=== PATIENT | male | born 1950 | race Two or more races ===

== ENCOUNTER 2020-08-28 14:04 | Outpatient (REF) | payer MEDICARE, SELFPAY ==
[2020-08-28 15:16] LABS: MANUAL DIFF FLAG NO
--- NOTE | 2020-08-28 15:18 | XR_ITS ---
EXAMINATION: LEFT SHOULDER, RIGHT KNEE AND LEFT HAND X-RAY CLINICAL INFORMATION: Other specified abnormal immunological findings in serum COMPARISON: Left shoulder x-ray 08/11/2019, right knee x-ray 03/11/2014 and left hand x-ray August 2019 TECHNIQUE: 4 views of the left shoulder, 3 views of the left knee and 3 views of the left hand FINDINGS: Left shoulder: Bone alignment is normal. No fracture or dislocation is seen. The glenohumeral joint is normal. There is arthritis at the acromioclavicular joint. There are degenerative degenerative changes of the greater tuberosity. Soft tissues are normal. Right knee: Bone alignment is normal. No fracture or dislocation is seen. There are small osteophytes at the patellofemoral joint. There is no joint effusion. Left hand: Bone alignment is normal. No fracture or dislocation is seen. There are small osteophytes joint space narrowing at the IP joints and first CORRECTION joint. There is soft tissue arterial calcification. XR/XR hand LT min 3V IMPRESSION: Left shoulder: Arthritis at the acromioclavicular joint. Left knee: Arthritis at the patellofemoral joint. Left hand: Arthritis at the IP joints and first CORRECTION joint.
--- NOTE | 2020-08-28 15:18 | XR_ITS ---
EXAMINATION: LEFT SHOULDER, RIGHT KNEE AND LEFT HAND X-RAY CLINICAL INFORMATION: Other specified abnormal immunological findings in serum COMPARISON: Left shoulder x-ray 08/11/2019, right knee x-ray 03/11/2014 and left hand x-ray August 2019 TECHNIQUE: 4 views of the left shoulder, 3 views of the left knee and 3 views of the left hand FINDINGS: Left shoulder: Bone alignment is normal. No fracture or dislocation is seen. The glenohumeral joint is normal. There is arthritis at the acromioclavicular joint. There are degenerative degenerative changes of the greater tuberosity. Soft tissues are normal. Right knee: Bone alignment is normal. No fracture or dislocation is seen. There are small osteophytes at the patellofemoral joint. There is no joint effusion. Left hand: Bone alignment is normal. No fracture or dislocation is seen. There are small osteophytes joint space narrowing at the IP joints and first LONGTERM joint. There is soft tissue arterial calcification. XR/XR shoulder LT min 2V IMPRESSION: Left shoulder: Arthritis at the acromioclavicular joint. Left knee: Arthritis at the patellofemoral joint. Left hand: Arthritis at the IP joints and first LONGTERM joint.
--- NOTE | 2020-08-28 15:18 | XR_ITS ---
EXAMINATION: LEFT SHOULDER, RIGHT KNEE AND LEFT HAND X-RAY CLINICAL INFORMATION: Other specified abnormal immunological findings in serum COMPARISON: Left shoulder x-ray 08/11/2019, right knee x-ray 03/11/2014 and left hand x-ray August 2019 TECHNIQUE: 4 views of the left shoulder, 3 views of the left knee and 3 views of the left hand FINDINGS: Left shoulder: Bone alignment is normal. No fracture or dislocation is seen. The glenohumeral joint is normal. There is arthritis at the acromioclavicular joint. There are degenerative degenerative changes of the greater tuberosity. Soft tissues are normal. Right knee: Bone alignment is normal. No fracture or dislocation is seen. There are small osteophytes at the patellofemoral joint. There is no joint effusion. Left hand: Bone alignment is normal. No fracture or dislocation is seen. There are small osteophytes joint space narrowing at the IP joints and first SNF joint. There is soft tissue arterial calcification. XR/XR knee RT 3V IMPRESSION: Left shoulder: Arthritis at the acromioclavicular joint. Left knee: Arthritis at the patellofemoral joint. Left hand: Arthritis at the IP joints and first SNF joint.
--- NOTE | 2020-08-28 15:19 | XR_ITS ---
EXAMINATION: XR CHEST CLINICAL INFORMATION: Essential primary hypertension COMPARISON: Chest radiographs 09/27/2014, 09/20/2014; CT abdomen 12/01/2019 TECHNIQUE: 2 views of the chest were obtained. FINDINGS: The heart is normal in size. The vascularity is normal. The lungs are clear. There is no airspace consolidation or effusion. The hilar and mediastinal contours and bony structures are unremarkable. Again, there are surgical clips epigastrium just left of midline. XR/XR chest 2V IMPRESSION: Unremarkable examination.
[2020-08-28 15:20] LABS: Basophils Percent Auto 0.2 % (0-2); Eosinophils Absolute Auto 0.3 X10*3/uL (0.0-0.4); Eosinophils Percent Auto 5.4 % (0-4); Hematocrit 40.1 % (42-52); Hemoglobin 13.2 g/dl (14.0-18.0); Imm Gran Abs Auto 0.01 X10*3/uL (0.00-0.03); Imm Gran Pct Auto 0.2 % (0.0-0.4); Lymphocytes Absolute Auto 1.7 X10*3/uL (1.2-4.9); Lymphocytes Percent Auto 29.5 % (20-40); Mean Corpuscular HGB Conc 32.9 g/dl (31.0-36.0); Mean Corpuscular Volume 88.1 fL (80-98); Mean Platelet Volume 9.4 fL (9.4-12.4); Monocytes Absolute Auto 0.4 X10*3/uL (0.1-1.2); Monocytes Percent Auto 6.1 % (2-11); Neutrophils Absolute Auto 3.5 X10*3/uL (2.0-8.3); Neutrophils Percent Auto 58.6 % (45-73); Platelet Count 268 X10*3/uL (160-400); Red Blood Count 4.55 X10*6/uL (4.60-5.80); Red Cell Distribution Width 13.1 % (11.0-16.0); White Blood Count 5.9 X10*3/uL (4.8-10.8)
[2020-08-28 15:47] LABS: Alanine Aminotransferase 18 U/L (0-40); Albumin Level 4.1 g/dL (3.5-5.0); Alkaline Phosphatase 127 U/L (39-117); Anion Gap 13 (12-20); Aspartate Amino Transferase 18 U/L (5-37); Bilirubin Total 0.5 mg/dL (0.0-1.0); Blood Urea Nitrogen 18 mg/dL (9-16); C Reactive Protein 0.23 mg/dL (< or = 0.50); Carbon Dioxide 28 mmol/L (22-29); Chloride 101 mmol/L (96-108); Estimated Glomerular Filt Rate 59; Glucose Random 243 mg/dL (60-115); Potassium 4.8 mmol/l (3.3-5.1); Rheumatoid Factor < 15.0 IU/mL (<15.0); Sodium 137 mmol/L (135-145); Total Protein 7.1 g/dL (6.5-8.0)
[2020-08-28 15:57] LABS: Glucose Urine UA >=1000 MG/DL (NEG); Leukocyte Esterase Urine NEG (NEG); Nitrite Urine NEG (NEG); PH 5.5 (5.0-8.0); Urine Blood NEG (NEG); Urine Ketones NEG (NEG); Urine Protein NEG (NEG-TRACE)
[2020-08-28 15:58] LABS: Appearance Urine CLEAR; Color Urine YELLOW
[2020-08-28 16:03] LABS: Bacteria Urine TRACE /LPF; RBC Urine 0 /HPF (0); WBC Urine 0 /HPF (0-4)
[2020-08-28 16:21] LABS: Erythrocyte Sedimentation Rate 7 MM/HR (0-15)
[2020-08-29 10:16] LABS: Thyroglobulin Antibodies <1 IU/mL (< or = 1); Thyroid Peroxidase Antibodies <1 IU/mL (<9)
[2020-08-29 13:28] LABS: Anti DNA DS Antibody 2 IU/mL; Antibody to SS-A Antigen <1.0 NEG AI (<1.0 NEG); Antibody to SS-B Antigen <1.0 NEG AI (<1.0 NEG); SM/Ribonucleoprotein Ab <1.0 NEG AI (<1.0 NEG); Scleroderma 70 Antibody <1.0 NEG AI (<1.0 NEG); Smith Protein <1.0 NEG AI (<1.0 NEG)
[2020-08-29 22:53] LABS: Cyclic Citrullinated Peptide <16 UNITS
[2020-08-30 19:17] LABS: Complement C3 122 mg/dL (82-185)
== END 2020-08-28 14:05 | disposition home or self-care (01) ==
LOC: HO.LAB 14:04
PROVIDERS: PCP Internal Medicine; Referring Provider Internal Medicine; Visit Provider Student in an Organized Health Care Education/Training Program
DX: M70.51 Other bursitis of knee, right knee (principal); M54.9 Dorsalgia, unspecified; I10 Essential (primary) hypertension; R76.8 Other specified abnormal immunological findings in serum; Z79.899 Other long term (current) drug therapy; Z79.84 Long term (current) use of oral hypoglycemic drugs
CPT/HCPCS: 36415; 71046; 73030; 73130; 73562; 80053; 81001; 85025; 85652; 86140; 86160; 86200; 86225; 86235; 86376; 86431; 86800; 99202

== ENCOUNTER 2020-09-15 17:29 | Emergency (ER) | payer MEDICARE, SELFPAY ==
--- NOTE | ~2020-09-15 | XR_ITS ---
EXAMINATION: XR CHEST CLINICAL INFORMATION: Cough? COVID COMPARISON: 08/28/2020 TECHNIQUE: Frontal view of the chest was obtained. FINDINGS: Lungs are clear. No pleural effusion or pneumothorax. Normal heart size. Surgical clips in the epigastrium. Degenerative changes of the shoulders. XR/XR chest 1V IMPRESSION: No acute pulmonary disease. No significant change from prior study.
[2020-09-15 18:30] VITALS: BP 136/81; PULSE 80; RESP 18; TEMP 36.6; O2SAT 99; BMI 30.9
--- NOTE | 2020-09-15 19:21 | ED.SOB ---
HPI - SOB/Dyspnea General Chief Complaint: Dyspnea Stated Complaint: headache Time Seen by Provider: 09/15/20 18:52 Source: patient Mode of arrival: ambulatory Limitations: no limitations History of Present Illness HPI Narrative: Patient history of COPD/asthma been feeling increased shortness of breath for last few days getting worse with body aches also has nausea and vomiting 3 days ago patient denies any COVID exposure on arrival patient was saturating 99% at room air MD elicited complaint: shortness of breath and cough (Mild dry) Pertinent past history: COPD and asthma Onset (ago): day(s) (3-4) Timing: constant Severity: mild Exacerbating factors: exertion Related Data Home Medications Medication Instructions Recorded Confirmed albuterol sulfate 90 mcg/actuation 2 puff INHALATION Q4-6H PRN 07/20/20 07/20/20 aerosol inhaler cyanocobalamin (vitamin B-12) 1,000 mcg PO DAILY 07/20/20 07/20/20 1,000 mcg capsule dicyclomine 10 mg capsule 10 mg PO QID 07/20/20 07/20/20 dulaglutide 1.5 mg/0.5 mL 1.5 mg SUBCUT QWEEK 07/20/20 07/20/20 subcutaneous pen injector fluticasone furoate 200 1 inh INHALATION DAILY 07/20/20 07/20/20 mcg-vilanterol 25 mcg/dose inhalation powder insulin glargine 100 unit/mL (3 16 unit SUBCUT QPM ml 07/20/20 07/20/20 mL) subcutaneous pen ipratropium 0.5 mg-albuterol 3 mg 3 ml INHALATION Q4-6H PRN 07/20/20 07/20/20 (2.5 mg base)/3 mL nebulization soln meclizine 25 mg tablet 25 mg PO TID 07/20/20 07/20/20 miconazole nitrate 2 % topical 1 appl TOPICAL DAILY 07/20/20 07/20/20 powder polyethylene glycol 3350 17 17 g PO DAILY 07/20/20 07/20/20 gram/dose oral powder sildenafil 50 mg tablet 50 mg PO DAILY PRN 07/20/20 07/20/20 tizanidine 4 mg tablet 4 mg PO TID PRN 07/20/20 07/20/20 triamcinolone acetonide 0.5 % 1 appl TOPICAL BID 07/20/20 07/20/20 topical cream lancets 28 gauge #100 ea 08/30/20 Previous Rx's Medication Instructions Recorded meloxicam 15 mg tablet 15 mg PO DAILY #90 tab 06/15/20 aspirin 81 mg tablet,delayed 81 mg PO DAILY #90 tab 07/20/20 release blood sugar diagnostic #3 box 07/20/20 cholecalciferol (vitamin D3) 50 50 mcg PO DAILY #90 cap 07/20/20 mcg (2,000 unit) capsule gabapentin 100 mg capsule 100 mg PO DAILY #90 cap 07/20/20 lisinopril 2.5 mg tablet 2.5 mg PO DAILY #90 tab 07/20/20 metformin 1,000 mg tablet 1,000 mg PO BID #180 tab 07/20/20 sertraline 50 mg tablet 50 mg PO DAILY #90 tab 07/20/20 diclofenac sodium 1 % topical gel 2 g TOPICAL BID #100 g 08/28/20 doxycycline hyclate 100 mg PO BID #20 cap 09/15/20 prednisone 40 mg PO DAILY #10 tab 09/15/20 Allergies Allergy/AdvReac Type Severity Reaction Status Date / Time aspirin [ASPIRIN] Allergy Intermediate RASH WITH Verified 08/28/20 14:09 HIGH DOSES Penicillins Allergy Mild HIVES Verified 08/28/20 14:09 phenytoin [From Dilantin] Allergy Mild BURNING Verified 08/28/20 14:09 SENSATION IN BODY acetaminophen [From PERCOCET] Allergy Unknown UNKNOWN Verified 08/28/20 14:09 butalbital [BUTALBITAL] Allergy Unknown HIVES Verified 08/28/20 14:09 codeine [CODEINE] Allergy Unknown NAUSEA & Verified 08/28/20 14:09 VOMITING hydromorphone [From DILAUDID] Allergy Unknown UNKNOWN Verified 08/28/20 14:09 oxycodone [From PERCOCET] Allergy Unknown UNKNOWN Verified 08/28/20 14:09 thimerosal [THIMEROSAL] Allergy Unknown UNKNOWN Verified 08/28/20 14:09 [place] Allergy Unknown Unknown Uncoded 05/16/20 08:01 MOTRIN Allergy Unknown hives Uncoded 02/14/20 00:00 PERCOCET Allergy Unknown hives Uncoded 02/14/20 00:00 Review of Systems Review of Systems: Constitutional : No Weight loss, No Fever, No Chills ENT/Mouth : No sore throat, No Rhinorrhea Eyes: No Eye Pain, No Swelling Cardiovascular : No Chest Pain, no palpitations Respiratory : +Cough, No Sputum, + shortness of breath Gastrointestinal : no Nausea, No Vomiting, No Diarrhea, No abdominal Pain, no black stools Genitourinary : No Dysuria, No Urinary Frequency Musculoskeletal : No joint pain, No Myalgias, No Joint Swelling Skin : No Skin Lesions, No rash Neuro : No Weakness, No Numbness, No Dizziness, No Headache Psych : No Anxiety/Panic, No Depression Heme/Lymph: No Bruising, No Lymphadenopathy Endocrine : No Polyuria, No Polydipsia All other systems reviewed and are negative PMFSH Past Medical History Medical History BERNARD positive BERNARD positive Anxiety and depression BPH (benign prostatic hyperplasia) Brain tumor Calcaneal spur, right COPD (chronic obstructive pulmonary disease) Diabetes mellitus with hyperglycemia Erectile dysfunction Essential hypertension GERD (gastroesophageal reflux disease) Grand mal seizure disorder History of carpal tunnel syndrome Hypercholesterolemia Inguinal hernia, bilateral Insomnia Migraine Obesity (BMI 30-39.9) Obstructive sleep apnea Osteoarthritis Pulmonary nodule RLS (restless legs syndrome) Tennis elbow Vitamin B12 deficiency Vitamin D deficiency Surgical History History of diverticulosis History of elbow surgery History of partial gastrectomy History of right inguinal hernia repair Hx of brain surgery Hx of carpal tunnel repair Hx of colonoscopy Hx of foot surgery Hx of prostate biopsy Family History Family History Father Diabetes Throat cancer Heart disease Mother Ovarian cancer Social History Social History Alcohol intake: never Smoking Status: Never smoker Advance Directives: No Advance Directives Information Provided: No Physical Exam Vital Signs: Vital Signs: Last Vital Signs Temp 97.9 F 09/15/20 20:00 Pulse 72 09/15/20 20:00 Resp 16 09/15/20 20:00 BP 137/75 09/15/20 20:00 Pulse Ox 99 09/15/20 20:00 Body Mass Index 30.9 Appearance: Alert. Oriented X3. No acute distress. Eyes: Pupils equal, round and reactive to light. ENT: Pharynx normal. Neck: Normal inspection. Neck supple. CVS: Normal heart rate and rhythm. Pulses normal. Respiratory: No respiratory distress. Breath sounds normal. Abdomen: Soft and nontender. Bowel sounds are present, no mass palpable, no CVA tenderness Skin: Skin warm and dry. Normal skin color. Normal skin turgor. Extremities: No lower extremity edema. Neuro: Oriented X 3. No motor deficit. No sensory deficit. MDM - SOB/Dyspnea MDM Narrative Medical decision making narrative: Patient's COPD/asthma came with cough is slight shortness of breath saturating 99% at room air COVID negative chest x-ray negative for any infiltrate discharge patient home on prednisone doxycycline and inhaler for acute bronchitis Differential Diagnosis Differential diagnosis: Likely acute exacerbation of chronic obstructive airways disease and pneumonia Medical Records Attestation: I reviewed the patient's medical records. Lab Data Attestation: I reviewed the patient's lab results. Labs: Lab Results 09/15/20 Range/Units 20:03 COVID-19 ([facility]) Negative (Negative) COVID-19 Clin Com See Note Discharge Plan Discharge Clinical Impression: Acute bronchitis Qualifiers: Bronchitis organism: unspecified organism Qualified Code(s): J20.9 - Acute bronchitis, unspecified Patient Disposition: Home, Self-Care Instructions: Acute Bronchitis (ED) Additional Instructions: Continue inhaler. Take antibiotic and prednisone as advised. Follow with PCP if not better Prescriptions: New doxycycline hyclate 100 mg capsule 100 mg PO BID Qty: 20 RF: 0 prednisone 20 mg tablet 40 mg PO DAILY Qty: 10 RF: 0 No Action meloxicam 15 mg tablet 15 mg PO DAILY Qty: 90 RF: 1 (DME) lancets [FreeStyle Lancets] 28 gauge misc 0 .ROUTE .MEDSUPPLY Qty: 100 RF: 0 Zeasorb AF 2 % powder 1 appl topical DAILY RF: 0 sildenafil 50 mg tablet 50 mg PO DAILY PRNRF: 0 triamcinolone acetonide 0.5 % cream 1 appl topical BID RF: 0 polyethylene glycol 3350 17 gram/dose powder 17 g PO DAILY RF: 0 cyanocobalamin (vitamin B-12) 1,000 mcg capsule 1,000 mcg PO DAILY RF: 0 meclizine 25 mg tablet 25 mg PO TID RF: 0 tizanidine 4 mg tablet 4 mg PO TID PRNRF: 0 Breo Ellipta 200-25 mcg/dose blister with device 1 inh inhalation DAILY RF: 0 ipratropium-albuterol 0.5 mg-3 mg(2.5 mg base)/3 mL solution for nebulization 3 ml inhalation Q4-6H PRNRF: 0 albuterol sulfate [ProAir HFA] 90 mcg/actuation HFA aerosol inhaler 2 puff inhalation Q4-6H PRNRF: 0 Lantus Solostar U-100 Insulin 100 unit/mL (3 mL) insulin pen 16 unit subcut QPM RF: 0 Trulicity 1.5 mg/0.5 mL pen injector 1.5 mg subcut QWEEK RF: 0 dicyclomine 10 mg capsule 10 mg PO QID RF: 0 lisinopril 2.5 mg tablet 2.5 mg PO DAILY Qty: 90 RF: 1 metformin 1,000 mg tablet 1,000 mg PO BID Qty: 180 RF: 1 aspirin [Adult Aspirin Regimen] 81 mg tablet,delayed release (DR/EC) 81 mg PO DAILY Qty: 90 RF: 3 gabapentin 100 mg capsule 100 mg PO DAILY Qty: 90 RF: 3 sertraline 50 mg tablet 50 mg PO DAILY Qty: 90 RF: 2 (DME) FreeStyle Lite Strips Strip See Rx Instructions .ROUTE .MEDSUPPLY Qty: 3 RF: 2 cholecalciferol (vitamin D3) 50 mcg (2,000 unit) capsule 50 mcg PO DAILY Qty: 90 RF: 3 diclofenac sodium [Voltaren] 1 % gel 2 g topical BID Qty: 100 RF: 0 Interventions: ED Discharge Assessment Last Done: 09/15/20 21:16 Discharge Date/Time: 09/15/20 21:16
[2020-09-15 20:00] VITALS: BP 137/75; PULSE 72; RESP 16; TEMP 36.6; O2SAT 99
[2020-09-15 20:30] LABS: COVID-19 Test Negative (Negative)
[2020-09-15] MEDS: predniSONE 20 MG TABLET 40 MG PO (20:56)
[2020-09-15] MEDS: Albuterol Sulfate 90 MCG 8 GM INHALER 4 PUFF INHALE (21:02)
--- NOTE | 2020-09-15 21:02 | PC.NURSE ---
PT MEDICATED PER MAR, COVID TEST NEGATIVE, VSS. AWAITING MD REEVAL. AWARE OF PLAN OF CARE.
== END 2020-09-15 21:16 | disposition home or self-care (01) ==
PROVIDERS: Emergency Provider Internal Medicine; PCP Internal Medicine
DX: J20.9 Acute bronchitis, unspecified (principal); Z20.822 Contact with and (suspected) exposure to COVID-19; E11.9 Type 2 diabetes mellitus without complications; I10 Essential (primary) hypertension
CPT/HCPCS: 36415; 71045; 87635; 99283; 99284

== ENCOUNTER 2020-09-16 17:37 | Emergency (ER) | payer MEDICARE, SELFPAY ==
--- NOTE | ~2020-09-16 | CT_ITS ---
EXAMINATION: CT HEAD WITHOUT CONTRAST CLINICAL INFORMATION: Severe dizziness COMPARISON: CT 02/02/2014 and MRI 10/24/2013 TECHNIQUE: Contiguous axial imaging was performed from the skull base to vertex without intravenous administration of contrast. This CT examination was performed using dose optimization techniques as appropriate, variously including the following: *Automated exposure control *Adjustment of mA and/or kV according to patient size (this includes techniques or standardized protocols for targeted exams where dose is matched to indication/reason for exam; i.e. extremities or head) *Use of iterative reconstruction technique FINDINGS: Again seen is evidence of prior left frontal craniotomy with subjacent encephalomalacia of the left superior frontal gyrus. There is minimal encephalomalacia of the most anterior aspect of the right supraorbital frontal lobe; this was present previously as well. Chronic left inferior cerebellar infarct. The ventricles and sulci are similar in configuration to prior studies. No mass effect or midline shift. No intracranial hemorrhage or extra-axial fluid collection. Globes and orbits are normal. Again seen is opacification of the bilateral ethmoid air cells. New left frontal sinus mucosal thickening. Mild bilateral maxillary sinus mucosal thickening is new/worsened. Globes and orbits are normal. CT/CT head/brain wo con IMPRESSION: Worsened sinus disease. Similar appearance of chronic left greater than right frontal encephalomalacia status post left frontal craniotomy.
--- NOTE | 2020-09-16 18:08 | ED_ITS ---
HPI - Dizziness General Chief Complaint: Dizziness Stated Complaint: Seizure,dizzyness Time Seen by Provider: 09/16/20 18:08 Source: patient Mode of arrival: EMS Limitations: no limitations History of Present Illness HPI Narrative: Patient with history of vertigo brain tumor status post surgery history of seizures last seizure 4 years ago not on any medication now was working on a washing machine felt vertigo spinning movement pt sat down happened 2 more times no seizure activity was noticed patient was seen here yesterday for cough for 5 days COVID was negative chest x-ray was negative on doxycycline and prednisone. Patient did have similar complaints in the past off and on. No headache no palpitation or chest pain focal deficit patient does get this dizziness to 3 times a week and take meclizine for this. Also has chronic tinnitus in both ears MD elicited complaint: dizziness Pertinent past history: BPPV Onset (ago): hour(s) Timing: sudden onset Severity: moderate Description: room spinning History of similar symptoms: Yes Exacerbating factors: movement/ambulation Associated symptoms: denies other symptoms Related Data Home Medications Medication Instructions Recorded Confirmed albuterol sulfate 90 mcg/actuation 2 puff INHALATION Q4-6H PRN 07/20/20 07/20/20 aerosol inhaler cyanocobalamin (vitamin B-12) 1,000 mcg PO DAILY 07/20/20 07/20/20 1,000 mcg capsule dicyclomine 10 mg capsule 10 mg PO QID 07/20/20 07/20/20 dulaglutide 1.5 mg/0.5 mL 1.5 mg SUBCUT QWEEK 07/20/20 07/20/20 subcutaneous pen injector fluticasone furoate 200 1 inh INHALATION DAILY 07/20/20 07/20/20 mcg-vilanterol 25 mcg/dose inhalation powder insulin glargine 100 unit/mL (3 16 unit SUBCUT QPM ml 07/20/20 07/20/20 mL) subcutaneous pen ipratropium 0.5 mg-albuterol 3 mg 3 ml INHALATION Q4-6H PRN 07/20/20 07/20/20 (2.5 mg base)/3 mL nebulization soln meclizine 25 mg tablet 25 mg PO TID 07/20/20 07/20/20 miconazole nitrate 2 % topical 1 appl TOPICAL DAILY 12/11/20 12/11/20 powder polyethylene glycol 3350 17 17 g PO DAILY 07/20/20 07/20/20 gram/dose oral powder sildenafil 50 mg tablet 50 mg PO DAILY PRN 07/20/20 07/20/20 tizanidine 4 mg tablet 4 mg PO TID PRN 07/20/20 07/20/20 triamcinolone acetonide 0.5 % 1 appl TOPICAL BID 07/20/20 07/20/20 topical cream lancets 28 gauge #100 ea 08/30/20 Previous Rx's Medication Instructions Recorded meloxicam 15 mg tablet 15 mg PO DAILY #90 tab 06/15/20 aspirin 81 mg tablet,delayed 81 mg PO DAILY #90 tab 07/20/20 release blood sugar diagnostic #3 box 07/20/20 cholecalciferol (vitamin D3) 50 50 mcg PO DAILY #90 cap 07/20/20 mcg (2,000 unit) capsule gabapentin 100 mg capsule 100 mg PO DAILY #90 cap 07/20/20 lisinopril 2.5 mg tablet 2.5 mg PO DAILY #90 tab 07/20/20 metformin 1,000 mg tablet 1,000 mg PO BID #180 tab 07/20/20 sertraline 50 mg tablet 50 mg PO DAILY #90 tab 07/20/20 diclofenac sodium 1 % topical gel 2 g TOPICAL BID #100 g 08/28/20 doxycycline hyclate 100 mg PO BID #20 cap 09/15/20 prednisone 40 mg PO DAILY #10 tab 09/15/20 meclizine 25 mg PO TID PRN #20 tab 09/16/20 Allergies Allergy/AdvReac Type Severity Reaction Status Date / Time aspirin [ASPIRIN] Allergy Intermediate RASH WITH Verified 08/28/20 14:09 HIGH DOSES Penicillins Allergy Mild HIVES Verified 08/28/20 14:09 phenytoin [From Dilantin] Allergy Mild BURNING Verified 08/28/20 14:09 SENSATION IN BODY acetaminophen [From PERCOCET] Allergy Unknown UNKNOWN Verified 08/28/20 14:09 butalbital [BUTALBITAL] Allergy Unknown HIVES Verified 08/28/20 14:09 codeine [CODEINE] Allergy Unknown NAUSEA & Verified 08/28/20 14:09 VOMITING hydromorphone [From DILAUDID] Allergy Unknown UNKNOWN Verified 08/28/20 14:09 oxycodone [From PERCOCET] Allergy Unknown UNKNOWN Verified 08/28/20 14:09 thimerosal [THIMEROSAL] Allergy Unknown UNKNOWN Verified 08/28/20 14:09 [place] Allergy Unknown Unknown Uncoded 05/16/20 08:01 MOTRIN Allergy Unknown hives Uncoded 02/14/20 00:00 PERCOCET Allergy Unknown hives Uncoded 02/14/20 00:00 Review of Systems Review of Systems: Constitutional : No Weight loss, No Fever, No Chills ENT/Mouth : No sore throat, No Rhinorrhea Eyes: No Eye Pain, No Swelling Cardiovascular : No Chest Pain, no palpitations Respiratory : + Cough, No Sputum, no shortness of breath Gastrointestinal : no Nausea, No Vomiting, No Diarrhea, No abdominal Pain, no black stools Genitourinary : No Dysuria, No Urinary Frequency Musculoskeletal : No joint pain, No Myalgias, No Joint Swelling Skin : No Skin Lesions, No rash Neuro : No Weakness, No Numbness, + Dizziness, No Headache Psych : No Anxiety/Panic, No Depression Heme/Lymph: No Bruising, No Lymphadenopathy Endocrine : No Polyuria, No Polydipsia All other systems reviewed and are negative Neurologic: Denies Abnormal speech present REPLACED BY [facility] Past Medical History Medical History BERNARD positive BERNARD positive Anxiety and depression BPH (benign prostatic hyperplasia) Brain tumor Calcaneal spur, right COPD (chronic obstructive pulmonary disease) Diabetes mellitus with hyperglycemia Erectile dysfunction Essential hypertension GERD (gastroesophageal reflux disease) Grand mal seizure disorder History of carpal tunnel syndrome Hypercholesterolemia Inguinal hernia, bilateral Insomnia Migraine Obesity (BMI 30-39.9) Obstructive sleep apnea Osteoarthritis Pulmonary nodule RLS (restless legs syndrome) Tennis elbow Vitamin B12 deficiency Vitamin D deficiency Surgical History History of diverticulosis History of elbow surgery History of partial gastrectomy History of right inguinal hernia repair Hx of brain surgery Hx of carpal tunnel repair Hx of colonoscopy Hx of foot surgery Hx of prostate biopsy Family History Family History Father Diabetes Throat cancer Heart disease Mother Ovarian cancer Social History Social History Alcohol intake: never Smoking Status: Never smoker Advance Directives: No Advance Directives Information Provided: Yes Physical Exam Vital Signs: Vital Signs: Last Vital Signs Temp 98.3 F 09/16/20 18:09 Pulse 102 H 09/16/20 19:35 Resp 16 09/16/20 19:35 BP 135/73 09/16/20 19:35 Pulse Ox 99 09/16/20 19:35 Body Mass Index 27.1 Const: General: cooperative, healthy appearing, comfortable, no acute distress and well developed Orientation/consciousness: patient oriented x3 HENMT: Head: Yes normal to inspection, Yes normocephalic and Yes atraumatic Ears: hearing grossly normal bilaterally General nose exam: Normal external nose present Mouth: Normal oral and palatal mucosa present Eyes: General: appearance normal, both eyes and all related structures Conjunctivae: conjunctivae normal Sclerae: sclerae normal Pupils: Equal, round and reactive pupils present EOM: EOMs intact bilaterally and No Nystagmus present Neck: Neck: Yes normal visual inspection, Yes full ROM, Yes no meningeal signs and Yes no JVD Chest: Chest palpation & inspection: normal palpation of entire chest wall Resp: Effort & Inspection: normal respiratory effort Auscultation: clear to auscultation bilaterally Cardio: Jugular venous distension: no JVD Palpation: normal PMI Rate: regular rate Rhythm: regular rhythm Heart sounds: S1 normal heart sound present and S2 normal heart sound present GI: Inspection: Yes normal to inspection Palpation (GI): Soft to palpation and nontender : General: Yes no CVA tenderness Back/Spine/Pelvis: Back: no CVA tenderness Thoracic/Lumbar Spine: thoracic and lumbar spine normal to inspection Skin: General skin exam: no rashes or lesions noted Neuro: General: patient oriented x3, tone normal, moves all extremities, Normal light touch and pain sensation, no meningeal signs, no focal motor deficits, CN's II-XI intact bilaterally and deep tendon reflexes 2+ bilaterally Cranial nerves: Yes Equal, round and reactive pupils present, Yes Nystagmus not present and No Nystagmus present Cognition (Neuro): normal cognition Speech: No Abnormal speech present Motor exam (neuro): no tremor noted, no asterixis and Motor fasciculations not present Coordination: [id number] test normal and Normal rapid alternating movements of the distal upper extremity present (Neuro) Course Course Course Narrative: Patient with history of benign positional vertigo came with similar episode of vertigo feeling improved after meclizine now workup is negative head CT without any acute lesions no cerebellar signs patient able to ambulate at this time will discharge patient home on meclizine MDM - Dizziness Differential Diagnosis Differential diagnosis: Likely benign paroxysmal positional vertigo, vertebral basilar insufficiency and cerebrovascular accident Medical Records Attestation: I reviewed the patient's medical records. Lab Data Attestation: I reviewed the patient's lab results. Result diagrams: 09/16/20 19:34 09/16/20 19:34 Labs: Lab Results 09/16/20 Range/Units 19:34 WBC 12.7 H (4.8-10.8) X10*3/uL RBC 4.14 L (4.60-5.80) X10*6/uL Hgb 12.1 L (14.0-18.0) g/dl Hct 35.7 L (42-52) % MCV 86.2 (80-98) fL MCH 29.2 (27.0-33.0) pg MCHC 33.9 (31.0-36.0) g/dl RDW 13.0 (11.0-16.0) % Plt Count 214 (160-400) X10*3/uL MPV 9.3 L (9.4-12.4) fL Immature Gran % (Auto) 0.3 (0.0-0.4) % Neut % (Auto) 88.7 H (45-73) % Lymph % (Auto) 7.7 L (20-40) % [place] % (Auto) 3.2 (2-11) % Eos % (Auto) 0.0 (0-4) % Baso % (Auto) 0.1 (0-2) % Lymph # (Auto) 1.0 L (1.2-4.9) X10*3/uL [place] # (Auto) 0.4 (0.1-1.2) X10*3/uL Eos # (Auto) 0.0 (0.0-0.4) X10*3/uL Baso # (Auto) 0.0 (0.0-0.2) X10*3/uL Abs Immat Gran (auto) 0.04 H (0.00-0.03) X10*3/uL Absolute Neuts (auto) 11.2 H (2.0-8.3) X10*3/uL Absolute Nucleated RBC 0.000 (0.0-0.012) X10*3/uL Nucleated RBC % (auto) 0.0 (0.0-0.2) /100WBC Discharge Plan Discharge Clinical Impression: Benign paroxysmal positional vertigo Patient Disposition: Home, Self-Care Instructions: Benign Paroxysmal Positional Vertigo (ED) Additional Instructions: Care and questions advised. Take medication as prescribed for severe dizziness. Follow with PCP if not better Prescriptions: New meclizine 25 mg tablet 25 mg PO TID PRN (Reason: dizziness) Qty: 20 RF: 0 No Action meloxicam 15 mg tablet 15 mg PO DAILY Qty: 90 RF: 1 (DME) lancets [FreeStyle Lancets] 28 gauge misc 0 .ROUTE .MEDSUPPLY Qty: 100 RF: 0 doxycycline hyclate 100 mg capsule 100 mg PO BID Qty: 20 RF: 0 prednisone 20 mg tablet 40 mg PO DAILY Qty: 10 RF: 0 Zeasorb AF 2 % powder 1 appl topical DAILY RF: 0 sildenafil 50 mg tablet 50 mg PO DAILY PRNRF: 0 triamcinolone acetonide 0.5 % cream 1 appl topical BID RF: 0 polyethylene glycol 3350 17 gram/dose powder 17 g PO DAILY RF: 0 cyanocobalamin (vitamin B-12) 1,000 mcg capsule 1,000 mcg PO DAILY RF: 0 meclizine 25 mg tablet 25 mg PO TID RF: 0 tizanidine 4 mg tablet 4 mg PO TID PRNRF: 0 Breo Ellipta 200-25 mcg/dose blister with device 1 inh inhalation DAILY RF: 0 ipratropium-albuterol 0.5 mg-3 mg(2.5 mg base)/3 mL solution for nebulization 3 ml inhalation Q4-6H PRNRF: 0 albuterol sulfate [ProAir HFA] 90 mcg/actuation HFA aerosol inhaler 2 puff inhalation Q4-6H PRNRF: 0 Lantus Solostar U-100 Insulin 100 unit/mL (3 mL) insulin pen 16 unit subcut QPM RF: 0 Trulicity 1.5 mg/0.5 mL pen injector 1.5 mg subcut QWEEK RF: 0 dicyclomine 10 mg capsule 10 mg PO QID RF: 0 lisinopril 2.5 mg tablet 2.5 mg PO DAILY Qty: 90 RF: 1 metformin 1,000 mg tablet 1,000 mg PO BID Qty: 180 RF: 1 aspirin [Adult Aspirin Regimen] 81 mg tablet,delayed release (DR/EC) 81 mg PO DAILY Qty: 90 RF: 3 gabapentin 100 mg capsule 100 mg PO DAILY Qty: 90 RF: 3 sertraline 50 mg tablet 50 mg PO DAILY Qty: 90 RF: 2 (DME) FreeStyle Lite Strips Strip See Rx Instructions .ROUTE .MEDSUPPLY Qty: 3 RF: 2 cholecalciferol (vitamin D3) 50 mcg (2,000 unit) capsule 50 mcg PO DAILY Qty: 90 RF: 3 diclofenac sodium [Voltaren] 1 % gel 2 g topical BID Qty: 100 RF: 0
--- NOTE | 2020-09-16 18:08 | ECG_ITS ---
Test Reason : DIZZINESS Blood Pressure : / mmHG Vent. Rate : 097 BPM Atrial Rate : 097 BPM P-R Int : 142 ms QRS Dur : 084 ms QT Int : 362 ms P-R-T Axes : 033 026 032 degrees QTc Int : 459 ms Normal sinus rhythm Normal ECG When compared with ECG of 28-SEP-2019 10:31, Vent. rate has increased BY 38 BPM QT has lengthened Referred By: Maurice Hall Electronically Signed By:MARGARITA WILLS
[2020-09-16 18:09] VITALS: BP 158/79; PULSE 99; RESP 18; TEMP 36.8; O2SAT 99; BMI 27.1
[2020-09-16] MEDS: Meclizine HCl 25 MG TABLET 50 MG PO (18:36)
[2020-09-16 19:35] VITALS: BP 135/73; PULSE 102; RESP 16; O2SAT 99
--- NOTE | 2020-09-16 19:37 | PC.NURSE ---
Pt found resting in bed, wakes easily to voice. Pt is CAOx4, speaking full sentences, continues reporting dizziness. IV to RAC placed by EMS noted to be infiltrated, removed by this RN. IV established to left hand, labs obainted and sent. VSS. Continue to monitor. Pt aware of plan to await lab results.
[2020-09-16 19:38] LABS: MANUAL DIFF FLAG NO
[2020-09-16 19:39] LABS: Basophils Percent Auto 0.1 % (0-2); Hematocrit 35.7 % (42-52); Hemoglobin 12.1 g/dl (14.0-18.0); Imm Gran Abs Auto 0.04 X10*3/uL (0.00-0.03); Imm Gran Pct Auto 0.3 % (0.0-0.4); Lymphocytes Percent Auto 7.7 % (20-40); Mean Corpuscular HGB Conc 33.9 g/dl (31.0-36.0); Mean Corpuscular Hemoglobin 29.2 pg (27.0-33.0); Mean Corpuscular Volume 86.2 fL (80-98); Mean Platelet Volume 9.3 fL (9.4-12.4); Monocytes Absolute Auto 0.4 X10*3/uL (0.1-1.2); Monocytes Percent Auto 3.2 % (2-11); Neutrophils Absolute Auto 11.2 X10*3/uL (2.0-8.3); Neutrophils Percent Auto 88.7 % (45-73); Platelet Count 214 X10*3/uL (160-400); Red Blood Count 4.14 X10*6/uL (4.60-5.80); White Blood Count 12.7 X10*3/uL (4.8-10.8)
--- NOTE | 2020-09-16 20:11 | PC.NURSE ---
at bedside discussing results and plan to DC home. Per MD, ambulation trial. Pt ambulating in the halls with a newby/steady gait, denies any dizziness while ambulating at this time. Pt aware of plan to DC home.
[2020-09-16 20:21] VITALS: BP 140/82; PULSE 102; RESP 16; O2SAT 99
[2020-09-16 20:32] LABS: Troponin-I High Sensitivity < 3.5 ng/L (<3.5-35.0)
[2020-09-16 20:34] LABS: Alanine Aminotransferase 20 U/L (0-40); Albumin Level 3.9 g/dL (3.5-5.0); Alkaline Phosphatase 103 U/L (39-117); Anion Gap 14 (12-20); Aspartate Amino Transferase 18 U/L (5-37); Bilirubin Direct 0.4 mg/dL (0.0-0.5); Bilirubin Total 0.7 mg/dL (0.0-1.0); Blood Urea Nitrogen 18 mg/dL (9-16); Calcium 8.6 mg/dL (8.4-10.2); Carbon Dioxide 20 mmol/L (22-29); Chloride 104 mmol/L (96-108); Creatinine Clr Calc Pharmacy 58.8; Estimated Glomerular Filt Rate 58; Glucose Random 375 mg/dL (60-115); Potassium 4.2 mmol/L (3.3-5.1); Sodium 134 mmol/L (135-145); Total Protein 6.7 g/dL (6.5-8.0)
--- NOTE | 2020-09-16 20:34 | PC.NURSE ---
RANDOM GLUCOSE WAS 375 REPORTED BY THE LAB @2030
== END 2020-09-16 20:24 | disposition home or self-care (01) ==
PROVIDERS: Emergency Provider Internal Medicine
DX: H81.13 Benign paroxysmal vertigo, bilateral (principal); I10 Essential (primary) hypertension; E11.9 Type 2 diabetes mellitus without complications; Z79.899 Other long term (current) drug therapy; Z79.4 Long term (current) use of insulin
CPT/HCPCS: 36415; 70450; 80048; 80076; 82947; 84484; 85025; 93005; 99283; 99284

== ENCOUNTER → 2020-09-25 13:56 | Outpatient (BNVA) | payer MEDICARE, SELFPAY | PROVIDERS: PCP Internal Medicine; Visit Provider Student in an Organized Health Care Education/Training Program | DX: R76.8 Other specified abnormal immunological findings in serum (principal) | CPT/HCPCS: 99212 ==

== ENCOUNTER 2020-10-03 20:20 | Emergency (ER) | payer MEDICARE, SELFPAY ==
[2020-10-03 20:24] VITALS: BP 144/80; PULSE 93; RESP 16; TEMP 37.2; O2SAT 98; BMI 30.9
[2020-10-03 22:37] VITALS: BP 148/87; PULSE 96; RESP 15; TEMP 37.1; O2SAT 98
--- NOTE | 2020-10-03 22:56 | PC.NURSE ---
ua collected and sent
[2020-10-03 22:59] LABS: Glucose Urine UA >=1000 MG/DL (NEG); Leukocyte Esterase Urine NEG (NEG); Nitrite Urine NEG (NEG); Urine Blood NEG (NEG); Urine Ketones NEG (NEG); Urine Protein NEG (NEG-TRACE)
[2020-10-03 23:01] LABS: Appearance Urine CLEAR; Color Urine YELLOW
--- NOTE | 2020-10-03 23:06 | ED.GENADULT ---
HPI - General Adult General Chief complaint: General Medical Stated complaint: Genital pain Time Seen by Provider: 10/03/20 22:33 Source: patient Mode of arrival: ambulatory Limitations: no limitations History of Present Illness HPI narrative: Patient comes emergency room complaining of penile pain. Denies testicular pain. Patient states it has been a few days that he has noticed whitish flare around the glans. Patient denies fever chills. Patient states it martinez on the skin when he urinates because the foreskin is cracked. That he does not have any current concerns of having an STD. Related Data Home Medications Medication Instructions Recorded Confirmed albuterol sulfate 90 mcg/actuation 2 puff INHALATION Q4-6H PRN 07/20/20 09/27/20 aerosol inhaler cyanocobalamin (vitamin B-12) 1,000 mcg PO DAILY 07/20/20 09/27/20 1,000 mcg capsule dicyclomine 10 mg capsule 10 mg PO QID 07/20/20 09/27/20 dulaglutide 1.5 mg/0.5 mL 1.5 mg SUBCUT QWEEK 07/20/20 09/27/20 subcutaneous pen injector fluticasone furoate 200 1 inh INHALATION DAILY 07/20/20 09/27/20 mcg-vilanterol 25 mcg/dose inhalation powder insulin glargine 100 unit/mL (3 16 unit SUBCUT QPM ml 07/20/20 09/27/20 mL) subcutaneous pen ipratropium 0.5 mg-albuterol 3 mg 3 ml INHALATION Q4-6H PRN 07/20/20 09/27/20 (2.5 mg base)/3 mL nebulization soln miconazole nitrate 2 % topical 1 appl TOPICAL DAILY 07/20/20 09/27/20 powder polyethylene glycol 3350 17 17 g PO DAILY 07/20/20 09/27/20 gram/dose oral powder sildenafil 50 mg tablet 50 mg PO DAILY PRN 07/20/20 09/27/20 tizanidine 4 mg tablet 4 mg PO TID PRN 07/20/20 09/27/20 triamcinolone acetonide 0.5 % 1 appl TOPICAL BID 07/20/20 09/27/20 topical cream lancets 28 gauge #100 ea 08/30/20 09/27/20 Previous Rx's Medication Instructions Recorded meloxicam 15 mg tablet 15 mg PO DAILY #90 tab 06/15/20 aspirin 81 mg tablet,delayed 81 mg PO DAILY #90 tab 07/20/20 release blood sugar diagnostic #3 box 07/20/20 cholecalciferol (vitamin D3) 50 50 mcg PO DAILY #90 cap 07/20/20 mcg (2,000 unit) capsule gabapentin 100 mg capsule 100 mg PO DAILY #90 cap 07/20/20 lisinopril 2.5 mg tablet 2.5 mg PO DAILY #90 tab 07/20/20 metformin 1,000 mg tablet 1,000 mg PO BID #180 tab 07/20/20 diclofenac sodium 1 % topical gel 2 g TOPICAL BID #100 g 08/28/20 meclizine 25 mg PO TID PRN #20 tab 09/16/20 amitriptyline 25 mg tablet 25 mg PO BEDTIME #90 tab 09/27/20 famotidine 20 mg tablet 20 mg PO BEDTIME #90 tab 09/27/20 sertraline 100 mg tablet 100 mg PO DAILY #30 tab 09/27/20 clotrimazole 1 appl TOPICAL BID 14 Days #45 g 10/03/20 Allergies Allergy/AdvReac Type Severity Reaction Status Date / Time aspirin [ASPIRIN] Allergy Intermediate RASH WITH Verified 09/25/20 14:02 HIGH DOSES Penicillins Allergy Mild HIVES Verified 09/25/20 14:02 phenytoin [From Dilantin] Allergy Mild BURNING Verified 09/25/20 14:02 SENSATION IN BODY acetaminophen [From PERCOCET] Allergy Unknown UNKNOWN Verified 09/25/20 14:02 butalbital [BUTALBITAL] Allergy Unknown HIVES Verified 09/25/20 14:02 codeine [CODEINE] Allergy Unknown NAUSEA & Verified 09/25/20 14:02 VOMITING hydromorphone [From DILAUDID] Allergy Unknown UNKNOWN Verified 09/25/20 14:02 oxycodone [From PERCOCET] Allergy Unknown UNKNOWN Verified 08/28/20 14:09 thimerosal [THIMEROSAL] Allergy Unknown UNKNOWN Verified 08/28/20 14:09 doxycycline AdvReac Intermediate penile Verified 09/27/20 13:29 rash? [place] Allergy Unknown Unknown Uncoded 05/16/20 08:01 MOTRIN Allergy Unknown hives Uncoded 02/14/20 00:00 PERCOCET Allergy Unknown hives Uncoded 02/14/20 00:00 Review of Systems Review of Systems: Constitutional : No Weight loss, No Fever, No Chills, No Night Sweats, No Fatigue, No Malaise ENT/Mouth : No Hearing loss, No Ear Pain, No Nasal Congestion, No Sinus Pain, No Hoarseness, No sore throat, No Rhinorrhea, No Swallowing Difficulty Eyes: No Eye Pain, No Swelling, No Redness, No Foreign Body, No Discharge, No Vision Changes Cardiovascular : No Chest Pain, No SOB, No Dyspnea on Exertion, No Orthopnea, No Edema, No Palpitations Respiratory : No Cough, No Sputum, No Wheezing, No Smoke Exposure, No Dyspnea Gastrointestinal : No Nausea, No Vomiting, No Diarrhea, No Constipation, No abdominal Pain, No Hematochezia, No Melena Genitourinary : Burning sensation in the glans, no testicular pain, No Urinary Frequency, No Hematuria, No Urinary Incontinence, No Urgency, No Flank Pain, No Urinary Flow Changes, No Hesitancy Musculoskeletal : No joint pain, No Myalgias, No Joint Swelling Skin : No Skin Lesions, No rash Neuro : No Weakness, No Numbness, No Paresthesias, No Loss of Consciousness, No Dizziness, No Headache Psych : No Anxiety/Panic, No Depression, No SI/HI/AH/VH, No Social Issues, Heme/Lymph: No Bruising, No Bleeding,No Lymphadenopathy Endocrine : No Polyuria, No Polydipsia, No Temperature Intolerance [facility] Past Medical History Medical History BERNARD positive BERNARD positive Anxiety and depression BPH (benign prostatic hyperplasia) Brain tumor Calcaneal spur, right COPD (chronic obstructive pulmonary disease) Diabetes mellitus with hyperglycemia Erectile dysfunction Essential hypertension GERD (gastroesophageal reflux disease) Grand mal seizure disorder History of carpal tunnel syndrome Hypercholesterolemia Inguinal hernia, bilateral Insomnia Migraine Obesity (BMI 30-39.9) Obstructive sleep apnea Osteoarthritis Pulmonary nodule RLS (restless legs syndrome) Tennis elbow Vitamin B12 deficiency Vitamin D deficiency Surgical History History of diverticulosis History of elbow surgery History of partial gastrectomy History of right inguinal hernia repair Hx of brain surgery Hx of carpal tunnel repair Hx of colonoscopy Hx of foot surgery Hx of prostate biopsy Family History Family History Father Diabetes Throat cancer Heart disease Mother Ovarian cancer Social History Social History (Updated 09/27/20 @ 13:02 by [place] [facility]) Alcohol intake: never Smoking Status: Never smoker Use of substances other than those prescribed or required for medical reasons: No Advance Directives: No Advance Directives Information Provided: Yes Physical Exam Vital Signs: Vital Signs: Last Vital Signs Temp 98.7 F 10/03/20 22:37 Pulse 96 10/03/20 22:37 Resp 15 10/03/20 22:37 BP 148/87 H 10/03/20 22:37 Pulse Ox 98 10/03/20 22:37 Body Mass Index 30.9 Appearance: Alert. Oriented X3. No acute distress. Eyes: Pupils equal, round and reactive to light. ENT: Pharynx normal. Neck: Normal inspection. Neck supple. No lymph nodes noted. No crepitus CVS: Normal heart rate and rhythm. Pulses normal. Normal S1 and S2 Respiratory: No respiratory distress. Breath sounds normal. No Wheezing. No rales Abdomen: Soft and nontender. No rigidity. No distention. good BS x4 : Foreskin is retractable, there is white discharge around the glans, consistent with candidiasis Skin: Skin warm and dry. Normal skin color. Normal skin turgor. Extremities: No lower extremity edema. No lower extremity edema. No Lacerations. No Rash Neuro: Oriented X 3. No motor deficit. No sensory deficit. Moving all extermities. No slurred speech. Course Course Course Narrative: I discussed the physical exam with the patient, consistent with penile candidiasis. Patient is known to be diabetic as well. Medical Decision Making Lab Data Labs: Lab Results 10/03/20 Range/Units 22:50 Urine Color YELLOW Urine Appearance CLEAR Urine pH 6.0 (5.0-8.0) Ur Specific [place] 1.020 (1.005-1.025) Urine Protein NEG (NEG-TRACE) MG/DL Urine Glucose (UA) >=1000 H (NEG) MG/DL Urine Ketones NEG (NEG) MG/DL Urine Blood NEG (NEG) Urine Nitrite NEG (NEG) Ur Leukocyte Esterase NEG (NEG) Discharge Plan Discharge Clinical Impression: Candidiasis of penis Patient Disposition: Home, Self-Care Instructions: Skin Yeast Infection (ED) Prescriptions: New clotrimazole 1 % cream 1 appl topical BID 14 Days Qty: 45 RF: 0 No Action meloxicam 15 mg tablet 15 mg PO DAILY Qty: 90 RF: 1 (DME) lancets [FreeStyle Lancets] 28 gauge misc 0 .ROUTE .MEDSUPPLY Qty: 100 RF: 0 famotidine 20 mg tablet 20 mg PO BEDTIME Qty: 90 RF: 3 meclizine 25 mg tablet 25 mg PO TID PRN (Reason: dizziness) Qty: 20 RF: 0 Zeasorb AF 2 % powder 1 appl topical DAILY RF: 0 sildenafil 50 mg tablet 50 mg PO DAILY PRNRF: 0 triamcinolone acetonide 0.5 % cream 1 appl topical BID RF: 0 polyethylene glycol 3350 17 gram/dose powder 17 g PO DAILY RF: 0 cyanocobalamin (vitamin B-12) 1,000 mcg capsule 1,000 mcg PO DAILY RF: 0 tizanidine 4 mg tablet 4 mg PO TID PRNRF: 0 Breo Ellipta 200-25 mcg/dose blister with device 1 inh inhalation DAILY RF: 0 ipratropium-albuterol 0.5 mg-3 mg(2.5 mg base)/3 mL solution for nebulization 3 ml inhalation Q4-6H PRNRF: 0 albuterol sulfate [ProAir HFA] 90 mcg/actuation HFA aerosol inhaler 2 puff inhalation Q4-6H PRNRF: 0 Lantus Solostar U-100 Insulin 100 unit/mL (3 mL) insulin pen 16 unit subcut QPM RF: 0 Trulicity 1.5 mg/0.5 mL pen injector 1.5 mg subcut QWEEK RF: 0 dicyclomine 10 mg capsule 10 mg PO QID RF: 0 lisinopril 2.5 mg tablet 2.5 mg PO DAILY Qty: 90 RF: 1 metformin 1,000 mg tablet 1,000 mg PO BID Qty: 180 RF: 1 aspirin [Adult Aspirin Regimen] 81 mg tablet,delayed release (DR/EC) 81 mg PO DAILY Qty: 90 RF: 3 gabapentin 100 mg capsule 100 mg PO DAILY Qty: 90 RF: 3 (DME) FreeStyle Lite Strips Strip See Rx Instructions .ROUTE .MEDSUPPLY Qty: 3 RF: 2 cholecalciferol (vitamin D3) 50 mcg (2,000 unit) capsule 50 mcg PO DAILY Qty: 90 RF: 3 sertraline 100 mg tablet 100 mg PO DAILY Qty: 30 RF: 2 amitriptyline 25 mg tablet 25 mg PO BEDTIME Qty: 90 RF: 1 diclofenac sodium [Voltaren] 1 % gel 2 g topical BID Qty: 100 RF: 0
[2020-10-03 23:10] LABS: Bacteria Urine 1+ /LPF; Squamous Epithelial Cell Urine 1+ /LPF
[2020-10-03 23:15] LABS: Glucose, Whole Blood 265 mg/dL (60-115)
== END 2020-10-03 23:47 | disposition home or self-care (01) ==
PROVIDERS: Emergency Provider Emergency Medicine; PCP Internal Medicine
DX: B37.49 Other urogenital candidiasis (principal); J44.9 Chronic obstructive pulmonary disease, unspecified; E11.9 Type 2 diabetes mellitus without complications; I10 Essential (primary) hypertension; K21.9 Gastro-esophageal reflux disease without esophagitis; E78.00 Pure hypercholesterolemia, unspecified; Z79.4 Long term (current) use of insulin; Z79.899 Other long term (current) drug therapy
CPT/HCPCS: 81001; 81003; 82947; 99283; 99284

== ENCOUNTER 2020-11-06 08:20 | Outpatient (REF) | payer MEDICARE, SELFPAY ==
[2020-11-06 09:35] LABS: MANUAL DIFF FLAG NO
[2020-11-06 09:48] LABS: Basophils Percent Auto 0.3 % (0-2); Eosinophils Absolute Auto 0.5 X10*3/uL (0.0-0.4); Eosinophils Percent Auto 8.2 % (0-4); Hematocrit 37.9 % (42-52); Hemoglobin 12.6 g/dl (14.0-18.0); Imm Gran Abs Auto 0.01 X10*3/uL (0.00-0.03); Imm Gran Pct Auto 0.2 % (0.0-0.4); Immature Retic Fraction 7.7 % (2.3-13.4); Lymphocytes Absolute Auto 1.7 X10*3/uL (1.2-4.9); Lymphocytes Percent Auto 25.7 % (20-40); Mean Corpuscular HGB Conc 33.2 g/dl (31.0-36.0); Mean Corpuscular Hemoglobin 29.2 pg (27.0-33.0); Mean Corpuscular Volume 87.9 fL (80-98); Mean Platelet Volume 9.5 fL (9.4-12.4); Monocytes Absolute Auto 0.6 X10*3/uL (0.1-1.2); Monocytes Percent Auto 9.6 % (2-11); Neutrophils Absolute Auto 3.7 X10*3/uL (2.0-8.3); Platelet Count 264 X10*3/uL (160-400); Red Blood Count 4.31 X10*6/uL (4.60-5.80); Red Cell Distribution Width 12.6 % (11.0-16.0); Retic HGB Equivalent 33.4 pg (30.0-35.0); Reticulocyte Percent 1.4 % (0.5-1.8); White Blood Count 6.6 X10*3/uL (4.8-10.8)
[2020-11-06 09:56] LABS: Estimated Average Glucose 286 mg/dL; Hemoglobin A1c % 11.6 %
[2020-11-06 10:02] LABS: Glucose Urine UA >=1000 MG/DL (NEG); Leukocyte Esterase Urine NEG (NEG); Nitrite Urine NEG (NEG); Specific Gravity - Urine <= 1.005 (1.005-1.025); Urine Blood NEG (NEG); Urine Ketones NEG (NEG); Urine Protein NEG (NEG-TRACE)
[2020-11-06 10:04] LABS: Alanine Aminotransferase 20 U/L (0-40); Albumin Level 3.8 g/dL (3.5-5.0); Alkaline Phosphatase 127 U/L (39-117); Anion Gap 15 (12-20); Appearance Urine CLEAR; Aspartate Amino Transferase 18 U/L (5-37); Bilirubin Total 0.6 mg/dL (0.0-1.0); Blood Urea Nitrogen 15 mg/dL (9-16); Calcium 8.4 mg/dL (8.4-10.2); Carbon Dioxide 25 mmol/L (22-29); Chloride 99 mmol/L (96-108); Cholesterol 122 mg/dL; Color Urine STRAW; Estimated Glomerular Filt Rate 59; Glucose Random 293 mg/dL (60-115); HDL Cholesterol 48 mg/dL; Iron 52 mcg/dL (45-160); LDL Cholesterol Calculated 60 mg/dl; Percent Iron Saturation 14 % (15-50); Potassium 4.6 mmol/L (3.3-5.1); Sodium 134 mmol/L (135-145); Total Iron Binding Capacity 377 mcg/dL (228-428); Total Protein 6.7 g/dL (6.5-8.0); Triglycerides 73 mg/dL; Unsaturated Iron Binding 325 ug/dL
[2020-11-06 10:12] LABS: RBC Urine 0 /HPF (0); WBC Urine 0 /HPF (0-4)
[2020-11-06 10:28] LABS: Folate 11.2 ng/mL (> or = 4.0); Vitamin B12 387 pg/mL (200-900)
[2020-11-06 10:29] LABS: Ferritin 10 ng/mL (20-250); Free T4 (Free Thyroxine) 0.89 ng/dL (0.71-1.85); Prostate Specific Antigen Scr 0.67 ng/mL (<0.05-4.0); Thyroid Stimulating Hormone 1.74 uIU/mL (0.32-4.0)
[2020-11-06 11:12] LABS: Creatinine Urine 16.17 mg/dL; Microalbumin Urine < 5.0 mg/L
== END 2020-11-06 08:21 | disposition home or self-care (01) ==
LOC: HO.LAB 08:20
PROVIDERS: Student in an Organized Health Care Education/Training Program; PCP Internal Medicine; Visit Provider Internal Medicine
DX: D64.9 Anemia, unspecified (principal); E78.00 Pure hypercholesterolemia, unspecified; I10 Essential (primary) hypertension; E11.65 Type 2 diabetes mellitus with hyperglycemia; Z79.4 Long term (current) use of insulin; Z12.5 Encounter for screening for malignant neoplasm of prostate
CPT/HCPCS: 36415; 80053; 80061; 81001; 82043; 82607; 82728; 82746; 83036; 83540; 84153; 84439; 84443; 85025; 85045

== ENCOUNTER 2020-11-19 20:48 | Emergency (ER) | payer MEDICARE, SELFPAY ==
[2020-11-19 21:32] VITALS: BP 136/76; PULSE 87; RESP 18; TEMP 36.8; O2SAT 99
[2020-11-19 22:27] VITALS: BMI 31.7
--- NOTE | 2020-11-19 23:08 | ED.URI ---
HPI - URI/Sore Throat General Chief Complaint: Upper Respiratory Symptoms Stated Complaint: Covid symptoms Time Seen by Provider: 11/19/20 20:58 Source: patient Mode of arrival: ambulatory Limitations: no limitations History of Present Illness HPI Narrative: 70-year-old male presents with mild upper respiratory symptoms consistent with COVID-19. He is complaining of cough, mild neck pain, GERD which is chronic, and fatigue. Patient is requesting testing at this time. Denies fevers, chills, chest pain or pressure, palpitations, shortness of breath, abdominal pain, abdominal distention, dysuria, hematuria, edema, and any other concerning symptoms. MD elicited complaint: cough and nasal congestion Onset (ago): day(s) Consistency: constant Severity: mild Able to tolerate fluids by mouth: Yes Exacerbating factors: nothing Relieving factors: nothing Associated symptoms: denies other symptoms Treatments prior to arrival: none Related Data Home Medications Medication Instructions Recorded Confirmed albuterol sulfate 90 mcg/actuation 2 puff INHALATION Q4-6H PRN 07/20/20 10/09/20 aerosol inhaler cyanocobalamin (vitamin B-12) 1,000 mcg PO DAILY 07/20/20 10/09/20 1,000 mcg capsule dicyclomine 10 mg capsule 10 mg PO QID 07/20/20 10/09/20 dulaglutide 1.5 mg/0.5 mL 1.5 mg SUBCUT QWEEK 07/20/20 10/09/20 subcutaneous pen injector fluticasone furoate 200 1 inh INHALATION DAILY 07/20/20 10/09/20 mcg-vilanterol 25 mcg/dose inhalation powder insulin glargine 100 unit/mL (3 16 unit SUBCUT QPM ml 07/20/20 10/09/20 mL) subcutaneous pen ipratropium 0.5 mg-albuterol 3 mg 3 ml INHALATION Q4-6H PRN 07/20/20 10/09/20 (2.5 mg base)/3 mL nebulization soln miconazole nitrate 2 % topical 1 appl TOPICAL DAILY 07/20/20 10/09/20 powder polyethylene glycol 3350 17 17 g PO DAILY 07/20/20 10/09/20 gram/dose oral powder sildenafil 50 mg tablet 50 mg PO DAILY PRN 07/20/20 10/09/20 tizanidine 4 mg tablet 4 mg PO TID PRN 07/20/20 10/09/20 triamcinolone acetonide 0.5 % 1 appl TOPICAL BID 07/20/20 10/09/20 topical cream lancets 28 gauge #100 ea 08/30/20 10/09/20 Previous Rx's Medication Instructions Recorded meloxicam 15 mg tablet 15 mg PO DAILY #90 tab 06/15/20 aspirin 81 mg tablet,delayed 81 mg PO DAILY #90 tab 07/20/20 release blood sugar diagnostic #3 box 07/20/20 cholecalciferol (vitamin D3) 50 50 mcg PO DAILY #90 cap 07/20/20 mcg (2,000 unit) capsule gabapentin 100 mg capsule 100 mg PO DAILY #90 cap 07/20/20 lisinopril 2.5 mg tablet 2.5 mg PO DAILY #90 tab 07/20/20 metformin 1,000 mg tablet 1,000 mg PO BID #180 tab 07/20/20 diclofenac sodium 1 % topical gel 2 g TOPICAL BID #100 g 08/28/20 meclizine 25 mg PO TID PRN #20 tab 09/16/20 amitriptyline 25 mg tablet 25 mg PO BEDTIME #90 tab 09/27/20 famotidine 20 mg tablet 20 mg PO BEDTIME #90 tab 09/27/20 sertraline 100 mg tablet 100 mg PO DAILY #30 tab 09/27/20 clotrimazole 1 appl TOPICAL BID 14 Days #45 g 10/03/20 Allergies Allergy/AdvReac Type Severity Reaction Status Date / Time aspirin [ASPIRIN] Allergy Intermediate RASH WITH Verified 11/19/20 22:27 HIGH DOSES Penicillins Allergy Mild HIVES Verified 11/19/20 22:27 phenytoin [From Dilantin] Allergy Mild BURNING Verified 11/19/20 22:27 SENSATION IN BODY acetaminophen [From PERCOCET] Allergy Unknown UNKNOWN Verified 11/19/20 22:27 butalbital [BUTALBITAL] Allergy Unknown HIVES Verified 11/19/20 22:27 codeine [CODEINE] Allergy Unknown NAUSEA & Verified 11/19/20 22:27 VOMITING hydromorphone [From DILAUDID] Allergy Unknown UNKNOWN Verified 11/19/20 22:27 oxycodone [From PERCOCET] Allergy Unknown UNKNOWN Verified 11/19/20 22:27 thimerosal [THIMEROSAL] Allergy Unknown UNKNOWN Verified 11/19/20 22:27 doxycycline AdvReac Intermediate penile Verified 11/19/20 22:27 rash? [place] Allergy Unknown Unknown Uncoded 05/16/20 08:01 MOTRIN Allergy Unknown hives Uncoded 02/14/20 00:00 PERCOCET Allergy Unknown hives Uncoded 02/14/20 00:00 Review of Systems Review of Systems: Constitutional: No Fever, no Chills, positive fatigue, no Malaise ENT/Mouth: No sore throat, no runny nose Eyes: No Discharge Cardiovascular: No Chest Pain, No SOB Respiratory: Positive Cough, No Sputum, No Wheezing, positive Smoke Exposure, No Dyspnea Gastrointestinal: No Nausea, No Vomiting, No Diarrhea Genitourinary: no irregular bleeding, No Dysuria, No Urinary Frequency, No Hematuria, No Urinary Incontinence, No Urgency, No Flank Pain Musculoskeletal: No Myalgia Skin: No rash Neuro: No Headache Yes all other systems are reviewed and are negative PMFSH Past Medical History Attestation statement: The following information was validated with the patient. Medical History BERNARD positive BERNARD positive Anxiety and depression BPH (benign prostatic hyperplasia) Brain tumor Calcaneal spur, right COPD (chronic obstructive pulmonary disease) Diabetes mellitus with hyperglycemia Erectile dysfunction Essential hypertension GERD (gastroesophageal reflux disease) Grand mal seizure disorder History of carpal tunnel syndrome Hypercholesterolemia Inguinal hernia, bilateral Insomnia Migraine Obesity (BMI 30-39.9) Obstructive sleep apnea Osteoarthritis Pulmonary nodule RLS (restless legs syndrome) Tennis elbow Vitamin B12 deficiency Vitamin D deficiency Surgical History History of diverticulosis History of elbow surgery History of partial gastrectomy History of right inguinal hernia repair Hx of brain surgery Hx of carpal tunnel repair Hx of colonoscopy Hx of foot surgery Hx of prostate biopsy Family History Family History Father Diabetes Throat cancer Heart disease Mother Ovarian cancer Social History Social History Alcohol intake: never Smoking Status: Never smoker Advance Directives: No Advance Directives Information Provided: No Physical Exam Vital Signs: Vital Signs: Last Vital Signs Temp 98.3 F 11/19/20 21:32 Pulse 87 11/19/20 21:32 Resp 18 11/19/20 21:32 BP 136/76 11/19/20 21:32 Pulse Ox 99 11/19/20 21:32 Body Mass Index 31.7 Appearance: Alert. Oriented X3. No acute distress. Eyes: Pupils equal, round and reactive to light. ENT: Pharynx normal. Neck: Normal inspection. Neck supple. CVS: Normal heart rate and rhythm. Pulses normal. Respiratory: No respiratory distress. Breath sounds normal. Abdomen: Soft and nontender. Skin: Skin warm and dry. Normal skin color. Normal skin turgor. Extremities: No lower extremity edema. Neuro: No motor deficit. No sensory deficit. Course Course Course Narrative: Patient requests COVID-19 testing. Patient is asymptomatic at this time, no acute distress, afebrile, normal physical exam. COVID test is negative however his son, whom he presents with, is positive for COVID-19. Patient does understand that he must treat himself as if he is positive because he has family members that lives with him that are positive. Patient verbalized understanding of and agrees plan of care discharge home. MDM - URI/Sore Throat Differential Diagnosis Differential diagnosis: Likely upper respiratory infection, viral infection, bronchitis and influenza Medical Records Attestation: I reviewed the patient's medical records. Lab Data Attestation: I reviewed the patient's lab results. Labs: Lab Results 11/19/20 Range/Units 22:57 COVID-19 (NOREEN) Negative (Negative) COVID-19 Clin Com See Note Discharge Plan Discharge Clinical Impression: COVID-19 Patient Disposition: Home, Self-Care Instructions: COVID-19 (Coronavirus Disease 2019) (ED) Additional Instructions: You were tested for signs and symptoms consistent with COVID-19. Your test came back negative however your family member is positive. You must treat yourself as if you are positive for COVID-19 because your family members are positive. Please maintain social isolation per State and Federal guidelines. It is your responsibility to maintain these guidelines. Please alternate Tylenol and Motrin as needed for pain management and fever control. If shortness of breath or symptoms worsen please return to the emergency department immediately for evaluation. Thank you for choosing this emergency department for evaluation. Please follow-up with primary care physician as needed. Return to the emergency department for any new, concerning, or worsening symptoms. Prescriptions: No Action meloxicam 15 mg tablet 15 mg PO DAILY Qty: 90 RF: 1 (DME) lancets [FreeStyle Lancets] 28 gauge misc 0 .ROUTE .MEDSUPPLY Qty: 100 RF: 0 famotidine 20 mg tablet 20 mg PO BEDTIME Qty: 90 RF: 3 meclizine 25 mg tablet 25 mg PO TID PRN (Reason: dizziness) Qty: 20 RF: 0 clotrimazole 1 % cream 1 appl topical BID 14 Days Qty: 45 RF: 0 Zeasorb AF 2 % powder 1 appl topical DAILY RF: 0 sildenafil 50 mg tablet 50 mg PO DAILY PRNRF: 0 triamcinolone acetonide 0.5 % cream 1 appl topical BID RF: 0 polyethylene glycol 3350 17 gram/dose powder 17 g PO DAILY RF: 0 cyanocobalamin (vitamin B-12) 1,000 mcg capsule 1,000 mcg PO DAILY RF: 0 tizanidine 4 mg tablet 4 mg PO TID PRNRF: 0 Breo Ellipta 200-25 mcg/dose blister with device 1 inh inhalation DAILY RF: 0 ipratropium-albuterol 0.5 mg-3 mg(2.5 mg base)/3 mL solution for nebulization 3 ml inhalation Q4-6H PRNRF: 0 albuterol sulfate [ProAir HFA] 90 mcg/actuation HFA aerosol inhaler 2 puff inhalation Q4-6H PRNRF: 0 Lantus Solostar U-100 Insulin 100 unit/mL (3 mL) insulin pen 16 unit subcut QPM RF: 0 Trulicity 1.5 mg/0.5 mL pen injector 1.5 mg subcut QWEEK RF: 0 dicyclomine 10 mg capsule 10 mg PO QID RF: 0 lisinopril 2.5 mg tablet 2.5 mg PO DAILY Qty: 90 RF: 1 metformin 1,000 mg tablet 1,000 mg PO BID Qty: 180 RF: 1 aspirin [Adult Aspirin Regimen] 81 mg tablet,delayed release (DR/EC) 81 mg PO DAILY Qty: 90 RF: 3 gabapentin 100 mg capsule 100 mg PO DAILY Qty: 90 RF: 3 (DME) FreeStyle Lite Strips Strip See Rx Instructions .ROUTE .MEDSUPPLY Qty: 3 RF: 2 cholecalciferol (vitamin D3) 50 mcg (2,000 unit) capsule 50 mcg PO DAILY Qty: 90 RF: 3 sertraline 100 mg tablet 100 mg PO DAILY Qty: 30 RF: 2 amitriptyline 25 mg tablet 25 mg PO BEDTIME Qty: 90 RF: 1 diclofenac sodium [Voltaren] 1 % gel 2 g topical BID Qty: 100 RF: 0 Stand Alone Forms: Work/School Release Interventions: ED Discharge Assessment Last Done: 11/19/20 23:42 Discharge Date/Time: 11/19/20 23:36
[2020-11-19 23:23] LABS: COVID-19 Test Negative (Negative); IDNOW Serial# 9DD0AD1C
== END 2020-11-19 23:36 | disposition home or self-care (01) ==
PROVIDERS: Nurse Practitioner Family; Emergency Provider Emergency Medicine; PCP Internal Medicine
DX: J06.9 Acute upper respiratory infection, unspecified (principal); Z20.822 Contact with and (suspected) exposure to COVID-19; M54.2 Cervicalgia; J44.9 Chronic obstructive pulmonary disease, unspecified; E11.9 Type 2 diabetes mellitus without complications; K21.9 Gastro-esophageal reflux disease without esophagitis; E78.00 Pure hypercholesterolemia, unspecified; Z79.4 Long term (current) use of insulin; Z79.899 Other long term (current) drug therapy
CPT/HCPCS: 36415; 87635; 99283; 99284

== ENCOUNTER → 2021-01-16 12:36 | Outpatient (BNVA) | payer MEDICARE, SELFPAY | PROVIDERS: PCP Internal Medicine; Visit Provider Nurse Practitioner Gerontology | DX: E11.65 Type 2 diabetes mellitus with hyperglycemia (principal); E78.00 Pure hypercholesterolemia, unspecified; E66.09 Other obesity due to excess calories; I10 Essential (primary) hypertension; Z79.4 Long term (current) use of insulin; Z68.31 Body mass index [BMI] 31.0-31.9, adult | CPT/HCPCS: 82947; 99212 ==

== ENCOUNTER 2021-04-16 12:21 | Outpatient (REF) | payer MEDICARE, SELFPAY ==
[2021-04-16 13:57] LABS: Blood Urea Nitrogen 10 mg/dL (9-16); Estimated Glomerular Filt Rate 59
== END 2021-04-16 12:22 | disposition home or self-care (01) ==
LOC: HO.LAB 12:21
PROVIDERS: PCP Internal Medicine; Visit Provider Internal Medicine
DX: R19.03 Right lower quadrant abdominal swelling, mass and lump (principal); D49.6 Neoplasm of unspecified behavior of brain
CPT/HCPCS: 36415; 82565; 84520

== ENCOUNTER 2021-04-24 11:03 | Outpatient (REF) | payer MEDICARE, SELFPAY | END 2021-04-24 11:04 | disposition home or self-care (01) | LOC: HO.MRI 11:03 | PROVIDERS: PCP Internal Medicine; Visit Provider Internal Medicine | DX: Z13.89 Encounter for screening for other disorder (principal) ==

== ENCOUNTER 2021-05-03 09:40 | Outpatient (REF) | payer MEDICARE, SELFPAY ==
--- NOTE | ~2021-05-03 | MR_ITS ---
EXAMINATION: MR BRAIN WITHOUT AND WITH CONTRAST CLINICAL INFORMATION: The patient states left head pain and dizziness. History of prior tumor 1990. COMPARISON: Multiple prior studies. The most recent MRI scan of the brain was obtained 10/24/2013. CT scan of the head obtained 09/16/2020. TECHNIQUE: Multiplanar, multisequence MRI of the brain was obtained before and after the intravenous administration of 8.5 mL Gadavist. FINDINGS: The study redemonstrates the sequelae of a left frontal craniotomy. There is underlying gliosis with mild encephalomalacia in the left superior frontal gyrus, and also in the inferior frontal lobes anteriorly bilaterally. There is no abnormal enhancement areas. These findings appear stable. No diffusion abnormalities are identified to suggest an acute or subacute infarct. No mass effect or midline shift is seen. The ventricles and sulci are commensurately prominent consistent with diffuse volume loss. There are also areas of increased T2 and FLAIR signal in the periventricular and subcortical white matter, and in the fatou most consistent with chronic microvascular ischemic disease. No extra-axial fluid collections are seen. The brainstem appears normal. On postcontrast imaging, there is no abnormal parenchymal or leptomeningeal enhancement elsewhere. There are small areas of low gradient signal subjacent to the craniotomy in the left frontal region, consistent with postoperative changes. The cerebellar tonsils have normal contour and position, and the craniocervical junction appears normal. Marrow signal and midline structures are normal. The major intracranial flow-voids at the level of the [place] are preserved. The dural venous sinus flow-voids are maintained. There have been bilateral lens extractions. There is moderate to extensive pansinus mucoperiosteal thickening with some sparing of the left sphenoid sinus. MR/MR head/brain wo/w con IMPRESSION: 1. There are no acute bleeds or territorial infarcts. No masses are demonstrated. There are sequelae of prior craniotomy in the left frontal region with gliotic changes as described above. There is no abnormal enhancement. 2. There are chronic microvascular ischemic changes and there is diffuse volume loss.
== END 2021-05-03 09:41 | disposition home or self-care (01) ==
LOC: HO.MRI 09:40
PROVIDERS: Visit Provider Internal Medicine
DX: D49.6 Neoplasm of unspecified behavior of brain (principal); R19.03 Right lower quadrant abdominal swelling, mass and lump
CPT/HCPCS: 70553; A9585

== ENCOUNTER 2021-05-09 08:55 | Outpatient (REF) | payer MEDICARE, SELFPAY ==
--- NOTE | ~2021-05-09 | CT_ITS ---
EXAMINATION: CT ABDOMEN AND PELVIS WITH CONTRAST CLINICAL INFORMATION: Right lower quadrant abdominal swelling mass or lump COMPARISON: Previous CT of the abdomen and pelvis November 2019 TECHNIQUE: Multidetector volumetric images were obtained from the superior aspect of the liver through the pubic symphysis following administration 85 mL of Omnipaque 350 intravenous contrast. Sagittal and coronal reformatted images were obtained on the technologist's workstation. Oral contrast: Yes This CT examination was performed using dose optimization techniques as appropriate, variously including the following: *Automated exposure control *Adjustment of mA and/or kV according to patient size (this includes techniques or standardized protocols for targeted exams where dose is matched to indication/reason for exam; i.e. extremities or head) *Use of iterative reconstruction technique DLP: 391 mGy-cm FINDINGS: LUNG BASES: The visualized lung bases are unremarkable. LIVER, GALLBLADDER, AND BILIARY TREE: The liver is normal in size, shape, and attenuation. No focal hepatic lesion or biliary ductal dilatation is present. The gallbladder is unremarkable with no evidence of radiopaque gallstones, gallbladder wall thickening, or obvious pericholecystic inflammatory changes. PANCREAS: There is fatty infiltration of the pancreas.. SPLEEN: Unremarkable. ADRENAL GLANDS: Unremarkable. KIDNEYS AND URETERS: The kidneys are normal in size, shape, and attenuation. No hydronephrosis, hydroureter, or calculi seen. No perinephric stranding. BLADDER: Unremarkable. GASTROINTESTINAL TRACT: There are postsurgical changes to the stomach. There are surgical clips adjacent to the proximal stomach/GE junction. There is a distal gastrectomy and gastric bypass. Small and large bowel is unremarkable. The appendix is unremarkable. ABDOMINAL WALL: There is a right inguinal hernia containing fat. LYMPH NODES: Normal. VASCULAR: Unremarkable. PELVIC VISCERA: Unremarkable. OSSEOUS STRUCTURES: There are degenerative changes of the spine and hip joints. CT/CT abdomen pelvis w con IMPRESSION: Right inguinal hernia containing fat. Postsurgical changes to the stomach.
[2021-05-09] MEDS: iohexoL 350 MG/ML 100 ML INFUS..BTL IV (11:33)
== END 2021-05-09 08:56 | disposition home or self-care (01) ==
LOC: HO.CT 08:55
PROVIDERS: Visit Provider Internal Medicine
DX: R19.03 Right lower quadrant abdominal swelling, mass and lump (principal)
CPT/HCPCS: 74177; Q9967

== ENCOUNTER → 2021-06-10 09:34 | Outpatient (BNVA) | payer MEDICARE, SELFPAY | PROVIDERS: PCP Internal Medicine; Referring Provider Internal Medicine; Visit Provider Surgery | DX: K40.90 Unilateral inguinal hernia, without obstruction or gangrene, not specified as recurrent (principal); D17.1 Benign lipomatous neoplasm of skin and subcutaneous tissue of trunk | CPT/HCPCS: 99202 ==

== ENCOUNTER 2021-06-12 17:07 | Inpatient (IN) | payer MEDICARE, SELFPAY ==
--- NOTE | 2021-06-12 | ECG_ITS ---
Test Reason : WEAKNESS Blood Pressure : / mmHG Vent. Rate : 073 BPM Atrial Rate : 073 BPM P-R Int : 138 ms QRS Dur : 076 ms QT Int : 376 ms P-R-T Axes : 001 015 030 degrees QTc Int : 414 ms Normal sinus rhythm Normal ECG No significant changes seen Referred By: Generic ED Physician Electronically Signed By:HEYDI YU MD
--- NOTE | ~2021-06-12 | MR_ITS ---
EXAMINATION: MR BRAIN WITHOUT CONTRAST CLINICAL INFORMATION: CVA. COMPARISON: Brain MRI May 03, 2021. Head CTA June 13, 2021. TECHNIQUE: Multiplanar, multisequence imaging of the brain was performed without intravenous contrast. FINDINGS: There is no acute infarction, hemorrhage, mass, or extra-axial fluid collection. Encephalomalacic and gliotic changes are seen within the left frontal lobe. There is a chronic infarct within the left inferior cerebellum. A small chronic lacunar infarct is seen in the right cerebellum. Left frontal craniotomy changes are noted. The ventricles are normal in size without hydrocephalus. Minimal amount of T2/FLAIR hyperintensity is seen within the cerebral white matter, a nonspecific finding. The major arterial flow voids are preserved at the skull base. There is moderate polypoid opacification of the paranasal sinuses with layering fluid seen in the left maxillary sinus. The mastoids are clear. MR/MR head/brain wo con IMPRESSION: No acute intracranial abnormality. Chronic encephalomalacic and gliotic changes seen in the left frontal lobe subjacent to craniotomy. Chronic infarct within the left inferior cerebellum and chronic lacunar infarcts in the right cerebellum.
--- NOTE | ~2021-06-12 | MR_ITS ---
EXAMINATION: MR CERVICAL SPINE WITHOUT CONTRAST CLINICAL INFORMATION: Pain and arm weakness, intermittent. COMPARISON: CT scan of the cervical spine 06/13/2021. MRI scan of the cervical spine 02/09/2013. MRI scan of the brain obtained 11/11/2020. TECHNIQUE: MRI of the cervical spine was obtained using routine sequences without contrast. FINDINGS: VERTEBRAL BODIES AND PARASPINAL SOFT TISSUES: There is mild reversal of the cervical lordosis. There is a mild degenerative anterolisthesis of C3 on C4. There are multilevel degenerative endplate contour changes. There are edematous endplate signal changes toward the left at C6-C7 posteriorly. There are edematous changes in the left C6-C7 facets. The changes previously demonstrated at C4-C5 have resolved. Intervertebral disc heights are maintained. The vertebral bodies of normal height and contour no fractures are demonstrated. Marrow signal is homogenous. The paravertebral structures are unremarkable. CERVICOMEDULLARY JUNCTION AND VISUALIZED POSTERIOR FOSSA: There are small areas of increased T2 and STIR signal in the fatou consistent with chronic microvascular ischemic changes. The craniocervical junction appears normal. Accounting for artifact, spinal cord signal appears normal. SPINAL LEVELS: C2-C3: There is mild bilateral facet arthropathy. Posterior disc contour is normal. There is no spinal cord compression or central stenosis. There are uncovertebral osteophytes, and there is mild right foraminal narrowing. C3-C4: There is severe left and moderate right facet arthropathy. There is a broad-based posterior disc protrusion which is focally more prominent in the midline with some effacement of CSF ventral to the spinal cord, but there is no spinal cord compression or central stenosis. There are uncovertebral osteophytes bilaterally and there is severe right and moderate left foraminal narrowing. C4-C5: There is moderate bilateral facet arthropathy. There is a posterior disc protrusion which is slightly more prominent on the left with some effacement of CSF ventral to the spinal cord but there is no spinal cord compression or central stenosis. There are uncovertebral osteophytes, and there is severe left and moderate right foraminal narrowing. C5-C6: There is severe right and mild left facet arthropathy. There is a soft disc protrusion posteriorly in the midline with distortion of the ventral thecal sac, but there is no spinal cord compression or central stenosis. There are uncovertebral osteophytes, and there is severe bilateral foraminal narrowing. C6-C7: There is moderate to severe bilateral facet arthropathy. There is a soft disc protrusion posteriorly which is most prominent in the midline, and there is effacement of CSF ventral spinal cord with mild impingement on the ventral cord. There is moderate central stenosis. There are uncovertebral osteophytes and there is severe left and moderate right foraminal narrowing. C7-T1: The facet joints appear normal bilaterally. Posterior disc contour is normal. There is no spinal cord compression or central stenosis. The neural foramina are patent bilaterally. MR/MR cervical spine wo con IMPRESSION: 1. At C6-C7 there is facet arthropathy and there is a posterior disc protrusion which is most prominent in the midline. There is mild impingement on the ventral spinal cord and there is moderate central stenosis. There is severe left and moderate right foraminal narrowing. 2. At C5-C6 there is facet arthropathy and there is a soft disc protrusion posteriorly but there is no cord compression or central stenosis. There is severe bilateral foraminal narrowing. 3. At C3-C4 and C4-C5 there are facet arthropathic changes. There is some effacement of CSF around the spinal cord at these levels, but there is no spinal cord compression or central stenosis. There are uncovertebral osteophytes and there is severe left and moderate right foraminal narrowing.
--- NOTE | ~2021-06-12 | CT_ITS ---
EXAMINATION: CTA OF THE HEAD AND NECK CLINICAL INFORMATION: CVA. COMPARISON: CT dated 09/16/2020 and MRI dated 05/03/2012 TECHNIQUE: Test bolus sequences followed by intravenous administration 100 mL of Omnipaque 350. Helical imaging was performed in the axial plane from the mediastinum to the skull vertex. Delayed postcontrast imaging of the head was also performed. The data was processed at the histotechnologist's workstation for generation of MIP sequences. Three-dimensional volume rendered reformatted images were also generated at an offline 3-D workstation. Stenoses are assessed in accordance with NASCET criteria unless otherwise indicated. DLP: 2375 mGy-cm. FINDINGS: CT head: Chronic changes of prior left frontal craniotomy with underlying left frontal lobe encephalomalacia. Minimal encephalomalacia in the inferior frontal lobes bilaterally as well. No abnormal enhancement. A small focus of encephalomalacia is also evident at the inferior aspect of the left cerebellar hemisphere. Dural venous sinuses are patent. There is no evidence of acute intracranial hemorrhage or territorial infarction. There is no loss of castillo to white matter differentiation. No abnormal mass effect or midline shift is seen. No extra-axial fluid collections are identified. Ventricles are normal in size, commensurate with the sulci. The osseous structures and soft tissues are normal. There is mucosal thickening throughout the paranasal sinuses with air-fluid levels in the maxillary and the sphenoid sinus. Globes are aphakic. CTA neck: The aortic arch is of normal contour and caliber. Classic 3 vessel branching pattern of the aortic arch. No significant stenosis of the branch origins. The common and internal carotid arteries opacify normally without focal stenosis or occlusion. Minimal calcific atherosclerosis is evident at the carotid bulbs bilaterally, right greater than left. The cervical segments of the vertebral arteries opacify normally without focal stenosis or occlusion. The thyroid gland and remaining cervical soft tissues are within normal limits. No significant abnormalities of the cervical spine. The visualized lung apices and upper mediastinum are within normal limits. CTA head: There is normal opacification of major intracranial arteries. No focal flow-limiting stenosis, discrete proximal large artery occlusion, or saccular intradural aneurysm. Normal contrast opacification of the petrous, cavernous, paraophthalmic, and supraclinoid segments of the internal carotid arteries without focal stenosis. Normal appearance of the anterior cerebral and middle cerebral arteries without focal occlusion or stenosis. Normal anterior communicating artery. Normal arborization of the middle cerebral arteries. There is an extradural origin of the left PICA. Otherwise normal appearance of the intradural vertebral and posterior inferior cerebellar arteries. Normal appearance of the basilar, superior cerebellar, and P1 segments of the posterior cerebral arteries. No appreciable posterior communicating arteries. Normal appearance of the distal segments of the posterior cerebral arteries bilaterally. CT/CT angio head neck IMPRESSION: 1. No acute vascular abnormalities are identified head and neck. Specifically, no evidence of arterial occlusion, stenoses, or aneurysm. 2. Chronic multifocal encephalomalacia, most notably in the left frontal lobe underlying the left frontal craniotomy. No acute intracranial findings.
--- NOTE | ~2021-06-12 | CT_ITS ---
EXAMINATION: CT CERVICAL SPINE WITHOUT CONTRAST CLINICAL INFORMATION: Neck pain. COMPARISON: CTA of the head and neck performed earlier today at 12:51 AM. TECHNIQUE: Contiguous axial imaging was performed of the cervical spine without intravenous administration of contrast. Coronal and sagittal reformats were obtained at the acquisition workstation. This CT examination was performed using dose optimization techniques as appropriate, variously including the following: *Automated exposure control *Adjustment of mA and/or kV according to patient size (this includes techniques or standardized protocols for targeted exams where dose is matched to indication/reason for exam; i.e. extremities or head) *Use of iterative reconstruction technique DLP: 548 mGy-cm FINDINGS: There is diffuse bony demineralization. The atlantooccipital and atlantoaxial articulations remain well aligned. Straightening of the normal cervical lordosis. Otherwise, there is anatomic alignment of the vertebral bodies and posterior elements. No evidence of acute fracture or subluxation. There is multilevel cervical spondylosis manifested by subchondral sclerosis, disc space narrowing, osteophytes and bilateral facet arthropathy. These changes are more prominent at the atlantodental articulation and mid to lower cervical spine. There is no prevertebral soft tissue swelling. The thyroid gland and remaining cervical soft tissues are normal in appearance. The lung apices demonstrate mild biapical thickening/scarring. CT/CT cervical spine wo con IMPRESSION: No acute cervical abnormalities. Moderate multilevel cervical spondylosis. If nerve impingement is of concern, further evaluation with an MR of the cervical spine could be helpful.
[2021-06-12 17:19] VITALS: BP 151/79; PULSE 75; RESP 18; TEMP 36.6; O2SAT 98; BMI 29.1
[2021-06-12 18:59] LABS: MANUAL DIFF FLAG NO
[2021-06-12 19:02] LABS: Basophils Percent Auto 0.2 % (0-2); Eosinophils Absolute Auto 0.6 X10*3/uL (0.0-0.4); Eosinophils Percent Auto 7.3 % (0-4); Hematocrit 43.1 % (42.0-52.0); Hemoglobin 14.4 g/dl (14.0-18.0); Imm Gran Abs Auto 0.01 X10*3/uL (0.00-0.03); Imm Gran Pct Auto 0.1 % (0.0-0.4); Lymphocytes Absolute Auto 2.5 X10*3/uL (1.2-4.9); Lymphocytes Percent Auto 30.9 % (20-40); Mean Corpuscular HGB Conc 33.4 g/dl (31.0-36.0); Mean Corpuscular Hemoglobin 29.9 pg (27.0-33.0); Mean Corpuscular Volume 89.4 fL (80.0-98.0); Mean Platelet Volume 9.1 fL (9.4-12.4); Monocytes Absolute Auto 0.5 X10*3/uL (0.1-1.2); Monocytes Percent Auto 6.2 % (2-11); Neutrophils Absolute Auto 4.53 x10*3/uL (2.0-8.3); Neutrophils Percent Auto 55.3 % (45-73); Platelet Count 275 X10*3/uL (160-400); Red Blood Count 4.82 X10*6/uL (4.60-5.80); White Blood Count 8.2 X10*3/uL (4.8-10.8)
[2021-06-12 19:21] LABS: Alanine Aminotransferase 18 U/L (0-40); Albumin Level 4.4 g/dL (3.5-5.0); Alkaline Phosphatase 117 U/L (39-117); Anion Gap 12 (12-20); Aspartate Amino Transferase 21 U/L (5-37); Bilirubin Direct 0.3 mg/dL (0.0-0.5); Bilirubin Total 0.7 mg/dL (0.0-1.0); Blood Urea Nitrogen 9 mg/dL (9-16); Calcium 9.6 mg/dL (8.4-10.2); Carbon Dioxide 28 mmol/L (22-29); Chloride 101 mmol/L (96-108); Creatinine Clr Calc Pharmacy 54.1; Estimated Glomerular Filt Rate 57; Glucose Random 184 mg/dL (60-115); Potassium 4.8 mmol/L (3.3-5.1); Sodium 136 mmol/L (135-145); Total Protein 7.7 g/dL (6.5-8.0)
--- NOTE | 2021-06-12 22:33 | ED_ITS ---
HPI - Weakness General Chief complaint: Weakness Stated complaint: ? a stroke 06/11 per daughter Time Seen by Provider: 06/12/21 22:32 Source: patient Mode of arrival: ambulatory Limitations: no limitations History of Present Illness HPI Narrative: Patient is 71 years old with history of hypertension, GERD, hypercholesterolemia, obstructive sleep apnea but intolerant of CPAP, major depression, left frontal tumor status post craniotomy in 1990 comes here for weakness of left side since he woke up from sleep at 03:00. Patient went to sleep at 23:30 he was fine all of a sudden woke up at 03:00 and noticed his left side week no dysarthria no facial deformity also complaining of mild headache on the left side patient had MRI for left head pain and dizziness on 05/03 which was negative for any acute stroke showed prior craniotomy no nausea no vomiting no fever no chills no cough no chest pain or palpitation. Patient could ambulate but has difficulty in lifting his left side Related Data Home Medications Medication Instructions Recorded Confirmed cyanocobalamin (vitamin B-12) 1,000 mcg PO DAILY 07/20/20 06/10/21 1,000 mcg capsule dicyclomine 10 mg capsule 10 mg PO QID 07/20/20 06/10/21 fluticasone furoate 200 1 inh INHALATION DAILY 07/20/20 06/10/21 mcg-vilanterol 25 mcg/dose inhalation powder (Breo Ellipta) miconazole nitrate 2 % topical 1 appl TOPICAL DAILY 07/20/20 06/10/21 powder (Zeasorb AF) polyethylene glycol 3350 17 17 g PO DAILY 07/20/20 06/10/21 gram/dose oral powder sildenafil 50 mg tablet 50 mg PO DAILY PRN 07/20/20 06/10/21 lancets 28 gauge (FreeStyle #100 ea 08/30/20 06/10/21 Lancets) Previous Rx's Medication Instructions Recorded aspirin 81 mg tablet,delayed 81 mg PO DAILY #90 tab 07/20/20 release (Adult Aspirin Regimen) cholecalciferol (vitamin D3) 50 50 mcg PO DAILY #90 cap 07/20/20 mcg (2,000 unit) capsule clotrimazole 1 % topical cream 1 appl TOPICAL BID 14 Days #45 g 10/03/20 lisinopril 2.5 mg tablet 2.5 mg PO DAILY #90 tab 01/09/21 metformin 1,000 mg tablet 1,000 mg PO BID #180 tab 01/09/21 albuterol sulfate 90 mcg/actuation 2 puff INHALATION Q4-6H PRN 30 01/16/21 aerosol inhaler (ProAir HFA) Days #6.7 g dulaglutide 3 mg/0.5 mL 3 mg (0.5 mL) SUBCUT QWEEK 28 Days 01/16/21 subcutaneous pen injector #2 ml (Trulicity) famotidine 20 mg tablet 20 mg PO BEDTIME #90 tab 01/16/21 insulin glargine 100 unit/mL (3 20 unit (0.2 mL) SUBCUT QPM #15 ml 01/16/21 mL) subcutaneous pen (Lantus Solostar U-100 Insulin) atorvastatin 10 mg tablet 10 mg PO DAILY #90 tab 03/19/21 meclizine 25 mg tablet 25 mg PO TID PRN #90 tab 03/19/21 triamcinolone acetonide 0.5 % 1 appl TOPICAL BID #15 g 03/19/21 topical cream sertraline 100 mg tablet 100 mg PO DAILY 90 Days #90 tab 04/01/21 gabapentin 100 mg capsule 100 mg PO DAILY #90 cap 04/17/21 meloxicam 15 mg tablet 15 mg PO DAILY #90 tab 04/17/21 trazodone 50 mg tablet 50 mg PO BEDTIME PRN #30 tab 05/17/21 blood sugar diagnostic (FreeStyle 1 strip MISCELLANEOUS TID #300 06/10/21 Lite Strips) strip Allergies Allergy/AdvReac Type Severity Reaction Status Date / Time aspirin [ASPIRIN] Allergy Intermediate RASH WITH Verified 05/17/21 09:48 HIGH DOSES Penicillins Allergy Mild HIVES Verified 05/17/21 09:48 phenytoin [From Dilantin] Allergy Mild BURNING Verified 05/17/21 09:48 SENSATION IN BODY acetaminophen [From PERCOCET] Allergy Unknown UNKNOWN Verified 05/17/21 09:48 butalbital [BUTALBITAL] Allergy Unknown HIVES Verified 05/17/21 09:48 codeine [CODEINE] Allergy Unknown NAUSEA & Verified 05/17/21 09:48 VOMITING hydromorphone [From DILAUDID] Allergy Unknown UNKNOWN Verified 05/17/21 09:48 oxycodone [From PERCOCET] Allergy Unknown UNKNOWN Verified 05/17/21 09:48 thimerosal [THIMEROSAL] Allergy Unknown UNKNOWN Verified 05/17/21 09:48 doxycycline AdvReac Intermediate penile Verified 05/17/21 09:48 rash? [place] Allergy Unknown Unknown Uncoded 01/16/21 12:56 MOTRIN Allergy Unknown hives Uncoded 01/16/21 12:56 PERCOCET Allergy Unknown hives Uncoded 01/16/21 12:56 Review of Systems Review of Systems: Yes all other systems are reviewed and are negative [facility] Past Medical History Medical History BERNARD positive BPH (benign prostatic hyperplasia) Brain tumor Calcaneal spur, right COPD (chronic obstructive pulmonary disease) Diabetes mellitus with hyperglycemia Erectile dysfunction Essential hypertension GERD (gastroesophageal reflux disease) Grand mal seizure disorder History of carpal tunnel syndrome Hypercholesterolemia Inguinal hernia, bilateral Insomnia Lipoma of abdominal wall Migraine Obesity (BMI 30-39.9) Obstructive sleep apnea Osteoarthritis Pulmonary nodule RLS (restless legs syndrome) Tennis elbow Vitamin B12 deficiency Vitamin D deficiency Surgical History History of diverticulosis History of elbow surgery History of partial gastrectomy History of right inguinal hernia repair Hx of brain surgery Hx of carpal tunnel repair Hx of colonoscopy Hx of foot surgery Hx of prostate biopsy Family History Family History Father Diabetes Throat cancer Heart disease Mother Ovarian cancer Social History Social History Household Members: Spouse Housing: Apartment Alcohol intake: never Patient Tobacco Use Status: Never used Tobacco e-Cigarette/Vaping Use: Never Used Second Hand Smoke Exposure: No Advance Directives: No Advance Directives Information Provided: Yes service: No Current occupational status: retired Physical Exam Vital Signs: Vital Signs: Last Vital Signs Temp 97.9 F 06/12/21 22:35 Pulse 69 06/13/21 01:35 Resp 18 06/13/21 01:35 BP 116/65 06/13/21 01:35 Pulse Ox 99 06/13/21 01:35 Body Mass Index 29.1 Appearance: Alert. Oriented X3. No acute distress. Eyes: PERRLA, No Nystagmus ENT: Pharynx normal. Oral Mucosa moist Neck: Normal inspection. Neck supple. CVS: Normal heart rate and rhythm. Pulses normal. Respiratory: No respiratory distress. Equal air entry bilateral, no wheezing/rales/rhonchi Abdomen: Soft and nontender. Bowel sounds are present, no mass palpable, no CVA tenderness Skin: Skin warm and dry. Normal skin color. Normal skin turgor. Extremities: No lower extremity edema. No calf tenderness Neuro: Oriented X 3. 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 NIH Stroke Scale Time: 22:00 Level of Consciousness: Alert Level of Consciousness Questions: Answers both questions correctly Level of Consciousness Commands: Performs both tasks correctly Best Gaze: Normal Visual: No visual loss Facial Palsy: Normal Motor Arm (Right): No drift Motor Arm (Left): No drift Motor Leg (Right): No drift Motor Leg (Left): Drift Limb Ataxia: Absent Sensory: Normal Best Language: No aphasia Dysarthia: Normal Extinction and Inattention: No abnormality Score: 1 MDM - Weakness MDM Narrative Medical decision making narrative: patient With acute left-sided weakness likely CVA outside the window for thrombolytics CTA head and neck was done . To rule out CVA. CT scan negative for any acute bleed final report pending patient does have left-sided headache with history of migraine but weakness is also on the left side etiology not very clear . Will admit patient for further evaluation will give 162 mg aspirin. Patient already takes 81 mg aspirin Lab Data Attestation: I reviewed the patient's lab results. Result diagrams: 06/12/21 18:45 06/12/21 18:45 Labs: Lab Results 06/12/21 06/12/21 Range/Units 18:45 18:45 WBC 8.2 (4.8-10.8) X10*3/uL RBC 4.82 (4.60-5.80) X10*6/uL Hgb 14.4 (14.0-18.0) g/dl Hct 43.1 (42.0-52.0) % MCV 89.4 (80.0-98.0) fL MCH 29.9 (27.0-33.0) pg MCHC 33.4 (31.0-36.0) g/dl RDW 13.0 (11.0-16.0) % Plt Count 275 (160-400) X10*3/uL MPV 9.1 L (9.4-12.4) fL Immature Gran % (Auto) 0.1 (0.0-0.4) % Neut % (Auto) 55.3 (45-73) % Lymph % (Auto) 30.9 (20-40) % [place] % (Auto) 6.2 (2-11) % Eos % (Auto) 7.3 H (0-4) % Baso % (Auto) 0.2 (0-2) % Lymph # (Auto) 2.5 (1.2-4.9) X10*3/uL [place] # (Auto) 0.5 (0.1-1.2) X10*3/uL Eos # (Auto) 0.6 H (0.0-0.4) X10*3/uL Baso # (Auto) 0.0 (0.0-0.2) X10*3/uL Abs Immat Gran (auto) 0.01 (0.00-0.03) X10*3/uL Absolute Neuts (auto) 4.53 (2.0-8.3) x10*3/uL Absolute Nucleated RBC 0.000 (0.0-0.012) X10*3/uL Nucleated RBC % (auto) 0.0 (0.0-0.2) /100WBC Sodium 136 (135-145) mmol/L Potassium 4.8 (3.3-5.1) mmol/L Chloride 101 (96-108) mmol/L Carbon Dioxide 28 (22-29) mmol/L Anion Gap 12 (12-20) BUN 9 (9-16) mg/dL Creatinine 1.25 (0.5-1.4) mg/dL Estim Creat Clear Calc 54.1 Estimated GFR 57 Random Glucose 184 H D (60-115) mg/dL Calcium 9.6 D (8.4-10.2) mg/dL Total Bilirubin 0.7 (0.0-1.0) mg/dL Direct Bilirubin 0.3 (0.0-0.5) mg/dL AST 21 (5-37) U/L ALT 18 (0-40) U/L Alkaline Phosphatase 117 (39-117) U/L Total Protein 7.7 (6.5-8.0) g/dL Albumin 4.4 (3.5-5.0) g/dL ECG Data Attestation: I personally reviewed and interpreted this ECG as follows: Interpretation: Normal sinus rhythm heart rate 73 beats per minute normal intervals normal axis no acute ischemia Discharge Plan Discharge Clinical Impression: Acute CVA (cerebrovascular accident) Patient Disposition: Admitted As Inpatient
[2021-06-12 22:35] VITALS: BP 137/78; PULSE 68; RESP 16; TEMP 36.6; O2SAT 99
[2021-06-13] VITALS (8 sets, daily range): BP systolic 116–140; BP diastolic 65–81; PULSE 62–91; RESP 14–20; TEMP 36.4–36.6; O2SAT 97–99
[2021-06-13] MEDS: iohexoL 350 MG/ML 100 ML INFUS..BTL 70 ML IV (01:17)
--- NOTE | 2021-06-13 01:23 | PC.NURSE ---
Pt rang in c/o headache. Dr Hall made aware. Dr Hall v/o 650mg tylenol for pt's ENGLISH. This RN attempted to order tylenol per V/O but pt with acetaminophen allergy with unknown reaction listed in chart. This RN made Isabel aware who instructs this RN to ask pt what his reaction to tylenol is. Pt reports he does not have an allergy, and his daughters inform this RN that pt doesn't care for tylenol because it doesn't do anything for his pain. Pt's daughters requesting amitriptyline for pt's ENGLISH. This rn informs Dr Hall. Dr Hall informs this RN tylenol is to be given at this time and upon CT results, he may order additional meds.
[2021-06-13] MEDS: Acetaminophen 325 MG TABLET 650 MG PO ×2 (01:33→22:26)
[2021-06-13] MEDS: Morphine Sulfate 2 MG/ML CARTRIDGE IVPUSH (02:38)
[2021-06-13] MEDS: ondansetron HCL 4 MG/2 ML VIAL IVPUSH (02:39)
--- NOTE | 2021-06-13 04:49 | PC.NURSE ---
Pt states he is unaware of whats the medication names are and what doses they are. Pt not a reliable source for home meds taken. Daughter to be contacted. Pharmacy consult placed.
--- NOTE | 2021-06-13 07:35 | PC.NURSE ---
report taken from oskar machado pt here for weakness that appears to have since resolved, pt has had s/s for multiple days. neuros appear grossly intact on first contact. ambulating to restroom w steady gait. wctm for dc needs.
--- NOTE | 2021-06-13 07:54 | PHA.MEDREC ---
Pharmacy Consult ? Medication Reconciliation Pharmacy has completed the medication reconciliation. Patient reported not taking insulin but taking trulicity once a week, confirmed multiple times with pt. Jessica KirklandD
--- NOTE | 2021-06-13 09:30 | PM.IMHP ---
History of Present Illness Date of Service: 06/13/21 Chief Complaint: Arm weakness This is a 71-year-old male with past medical history of COPD, diabetes, HTN, HLD, insomnia, history of migraine, history of brain tumor status post craniotomy, GERD who presents to the hospital with complaints of sudden onset numbness tingling and weakness of his upper extremities. Patient reports that he woke up at 3:00 a.m. the day prior with severe neck pain, left shoulder pain, numbness tingling and weakness in his arms bilaterally. He reports that his left arm was weaker than his right, this lasted for about 2 hours and resolved. He was having migraines but this is usual for him. Patient reports that he was just feeling lousy all day and therefore asked to come to the hospital by his daughter. He denies having any lower extremity weakness numbness or tingling. He reports that his symptoms have now resolved with no chest pain, no shortness of breath, no abdominal pain nausea or vomiting, no diarrhea constipation, no urinary symptoms. On arrival to the ED patient hemodynamically stable with no significant abnormal vitals Vitals reviewed, unremarkable Review of Systems Review of Systems: Yes all other systems are reviewed and are negative [facility] Medical History BERNARD positive BPH (benign prostatic hyperplasia) Brain tumor Calcaneal spur, right COPD (chronic obstructive pulmonary disease) Diabetes mellitus with hyperglycemia Erectile dysfunction Essential hypertension GERD (gastroesophageal reflux disease) Grand mal seizure disorder History of carpal tunnel syndrome Hypercholesterolemia Inguinal hernia, bilateral Insomnia Lipoma of abdominal wall Migraine Obesity (BMI 30-39.9) Obstructive sleep apnea Osteoarthritis Pulmonary nodule RLS (restless legs syndrome) Tennis elbow Vitamin B12 deficiency Vitamin D deficiency Family History Father Diabetes Throat cancer Heart disease Mother Ovarian cancer Pertinent family history: No pertinent family history Surgical History History of diverticulosis History of elbow surgery History of partial gastrectomy History of right inguinal hernia repair Hx of brain surgery Hx of carpal tunnel repair Hx of colonoscopy Hx of foot surgery Hx of prostate biopsy Social History Household Members: Spouse Housing: Apartment Alcohol intake: never Patient Tobacco Use Status: Never used Tobacco e-Cigarette/Vaping Use: Never Used Second Hand Smoke Exposure: No Use of substances other than those prescribed or required for medical reasons: No Advance Directives: No Advance Directives Information Provided: Yes service: No Current occupational status: retired Meds Allergies Allergy/AdvReac Type Severity Reaction Status Date / Time aspirin [ASPIRIN] Allergy Intermediate RASH WITH Verified 06/13/21 02:37 HIGH DOSES Penicillins Allergy Mild HIVES Verified 06/13/21 02:37 phenytoin [From Dilantin] Allergy Mild BURNING Verified 06/13/21 02:37 SENSATION IN BODY butalbital [BUTALBITAL] Allergy Unknown HIVES Verified 06/13/21 02:37 codeine [CODEINE] Allergy Unknown NAUSEA & Verified 06/13/21 02:37 VOMITING hydromorphone [From DILAUDID] Allergy Unknown UNKNOWN Verified 06/13/21 02:37 oxycodone [From PERCOCET] Allergy Unknown UNKNOWN Verified 06/13/21 02:37 thimerosal [THIMEROSAL] Allergy Unknown UNKNOWN Verified 06/13/21 02:37 doxycycline AdvReac Intermediate penile Verified 06/13/21 02:37 rash? [place] Allergy Unknown Unknown Uncoded 06/13/21 02:37 MOTRIN Allergy Unknown hives Uncoded 06/13/21 02:37 PERCOCET Allergy Unknown hives Uncoded 06/13/21 02:37 Active Medications: Current Medications Pharmacy Consult (Consult Rx Perform Med Rec) 1 each MISCELLANE ONCE PRN PRN Reason: Consult order Home Medications Medication Instructions Recorded Confirmed Last Taken Type amitriptyline 25 mg tablet 1 tab PO BEDTIME 06/13/21 06/13/21 Unknown History aspirin 81 mg tablet,delayed 1 tab PO DAILY 06/13/21 06/13/21 06/11/21 History release atorvastatin 10 mg tablet 1 tab PO BEDTIME 06/13/21 06/13/21 06/11/21 History cholecalciferol (vitamin D3) 50 1 cap PO DAILY 06/13/21 06/13/21 06/11/21 History mcg (2,000 unit) capsule dicyclomine 10 mg capsule 1 - 2 cap PO QID PRN 06/13/21 06/13/21 Unknown History dulaglutide 1.5 mg/0.5 mL 1.5 mg SUBCUT MO@0900 06/13/21 06/13/21 06/10/21 History subcutaneous pen injector (Trulicity) famotidine 20 mg tablet 1 tab PO BEDTIME 06/13/21 06/13/21 06/11/21 History gabapentin 100 mg capsule 1 cap PO DAILY 06/13/21 06/13/21 06/11/21 History lisinopril 2.5 mg tablet 1 tab PO DAILY 06/13/21 06/13/21 06/11/21 History meclizine 25 mg tablet 1 tab PO TID PRN 06/13/21 06/13/21 Unknown History meloxicam 15 mg tablet 1 tab PO DAILY 06/13/21 06/13/21 06/11/21 History metformin 1,000 mg tablet 1 tab PO BID 06/13/21 06/13/21 06/11/21 History sertraline 100 mg tablet 1 tab PO DAILY 06/13/21 06/13/21 06/11/21 History trazodone 50 mg tablet 1 tab PO BEDTIME PRN 06/13/21 06/13/21 Unknown History Physical Exam Vital Signs and Narrative: Vital Signs: Last Vital Signs Temp 97.9 F 06/12/21 22:35 Pulse 80 06/13/21 07:06 Resp 16 06/13/21 07:06 BP 125/81 06/13/21 07:06 Pulse Ox 98 06/13/21 07:06 Body Mass Index 29.1 Const: General: cooperative and no acute distress Orientation/consciousness: patient oriented x3 Eyes: General: appearance normal, both eyes and all related structures Resp: Effort & Inspection: normal respiratory effort Auscultation: clear to auscultation bilaterally Cardio: Rate: regular rate Rhythm: regular rhythm GI: Palpation (GI): Soft to palpation Auscultation: normal bowel sounds Skin: General skin exam: no rashes or lesions noted Neuro: Other: Patient has no neurological deficits, strength is 5/5 in all extremities, intracnial nerves 2-12 intact General: patient oriented x3 Cognition (Neuro): normal cognition Extrem: General: Yes normal to inspection and Yes no pedal edema Results Labs CBC and Chem 7: 06/12/21 18:45 06/12/21 18:45 Labs: Laboratory Results - last 24 hr 06/12/21 06/12/21 18:45 18:45 MCV 89.4 MCH 29.9 MCHC 33.4 RDW 13.0 Plt Count 275 MPV 9.1 L Immature Gran % (Auto) 0.1 Neut % (Auto) 55.3 Lymph % (Auto) 30.9 [place] % (Auto) 6.2 Eos % (Auto) 7.3 H Baso % (Auto) 0.2 Lymph # (Auto) 2.5 [place] # (Auto) 0.5 Eos # (Auto) 0.6 H Baso # (Auto) 0.0 Abs Immat Gran (auto) 0.01 Absolute Neuts (auto) 4.53 Absolute Nucleated RBC 0.000 Nucleated RBC % (auto) 0.0 Anion Gap 12 Estim Creat Clear Calc 54.1 Estimated GFR 57 Random Glucose 184 H D Calcium 9.6 D Total Bilirubin 0.7 Direct Bilirubin 0.3 AST 21 ALT 18 Alkaline Phosphatase 117 Total Protein 7.7 Albumin 4.4 ECG Interpretation: Normal sinus rhythm Imaging Radiologist's Impressions: Impressions Head/Neck CTA 06/13/21 00:00 IMPRESSION: 1. No acute vascular abnormalities are identified head and neck. Specifically, no evidence of arterial occlusion, stenoses, or aneurysm. 2. Chronic multifocal encephalomalacia, most notably in the left frontal lobe underlying the left frontal craniotomy. No acute intracranial findings. Assessment and Plan (1) Acute CVA (cerebrovascular accident): Status: Acute (2) Neck pain: Status: Acute 71-year-old male with past medical history of diabetes presents to the hospital with complaints of arm week # acute CVA - CT angiogram of head and neck negative - patient also complained of neck pain, CT cervical spine neg - will obtain MRI - continue aspirin, increase statin to 40 mg - consult neurology # neck pain - possibly osteoarthritis - next CT neg # hypertension - stable - continue home medications # diabetes - low-dose sliding scale answer - diabetic diet - hold oral anti hyperglycemics Continue all other chronic medication DVT prophylaxis: Lovenox Quality Stroke Does the patient have a stroke diagnosis?: No VTE Prior VTE?: No VTE Risk Level:: Medical - moderate - high VTE Device Contraindication: Treatment Not Indicated VTE Drug Contraindication: N/A - Med Ordered
[2021-06-13 11:15] LABS: Appearance Urine CLEAR; Color Urine YELLOW; Glucose Urine UA 100 MG/DL (NEG); Leukocyte Esterase Urine NEG (NEG); Nitrite Urine NEG (NEG); Urine Blood NEG (NEG); Urine Ketones NEG (NEG); Urine Protein NEG (NEG-TRACE)
[2021-06-13] MEDS: Gabapentin 100 MG CAPSULE PO (11:19)
[2021-06-13] MEDS: Aspirin Enteric Coated 81 MG TABLET.DR PO (11:19)
[2021-06-13] MEDS: Sertraline HCL 100 MG TABLET PO (11:19)
[2021-06-13] MEDS: lisinopriL 2.5 MG TABLET PO (11:19)
[2021-06-13] MEDS: Cholecalciferol (Vitamin D3) 25 MCG TABLET 50 MCG PO (11:19)
[2021-06-13 11:20] LABS: COVID-19 Test Negative (Negative); IDNOW Serial# 9DD0AD1C
--- NOTE | 2021-06-13 12:34 | MHC.STROKE ---
Addendum entered by Jazmine Villasenor RN 06/18/21 14:29: Patient ambulatory and at baseline, vte prophylaxis not indicated. Original Note: I MET WITH THE PATIENT AND HIS JUST PRIOR TO HIM GOING DOWN TO MRI. HE WAS FEELING MUCH BETTER. STROKE EDUCATION INITIATED AND I WAS ABLE TO ANSWER ANY QUESTIONS THEY HAD. I WILL CONTINUE TO FOLLOW.
--- NOTE | 2021-06-13 13:16 | PC.NURSE ---
RN aware of Poc 135
[2021-06-13 13:28] LABS: Glucose, Whole Blood 135 mg/dL (60-115)
--- NOTE | 2021-06-13 16:17 | P.EN_ITS ---
Event Note Date of Service: 06/13/21 Event Note: Patient seen and examined-says that his weakness seems to be resol reny. Denies any new neurological symptoms. Denies any new complaint of chest pain or shortness of breath or abdominal pain or fever or chills or nausea or vomiting Denies any cough Physical exam: Unchanged from H and P. Neuro: Alert oriented x3 moves all extremities, nonfocal Assessment plan: MRI head negative ? Question TIA Continue aspirin statin, PT OT, bp running 130-140 range ,lipid panel in a.m. Neuro evaluation pending,
--- NOTE | 2021-06-13 17:18 | PM.NEUROCN ---
History of Present Illness Data of Consult Service Date: 06/13/21 Primary Care Provider: MD SAKSHI Wilkerson Reason for consult: Episode of shaking all over and transient numbness and pain in the left hea This a 71-year-old man with a history of cervical disc disease was previously had cervical spine surgery and has carpal tunnel syndrome was the and a left frontal craniotomy for removal of a tumor in the past her came in because he woke up with numbness and pain in his left face head and left arm. He also had some symptoms in the right fingers. He is a vague historian. According to the daughter, he was shaking and twitching all over on both sides but it was not like his usual seizure which she has had in the past he was brought in. His numbness has resolved he still has some pain in the left arm, shoulder and hand are slightly on the lefft face. He had an MRI of the brain which showed postsurgical changes in the frontal lobe on the left but no evidence of a new infarct. A CTA which was unremarkable. CT scan of the cervical spine was unremarkable. Review of Systems Review of Systems: Yes all other systems are reviewed and are negative [facility] Past Medical History Medical History BERNARD positive BPH (benign prostatic hyperplasia) Brain tumor Calcaneal spur, right COPD (chronic obstructive pulmonary disease) Diabetes mellitus with hyperglycemia Erectile dysfunction Essential hypertension GERD (gastroesophageal reflux disease) Grand mal seizure disorder History of carpal tunnel syndrome Hypercholesterolemia Inguinal hernia, bilateral Insomnia Lipoma of abdominal wall Migraine Obesity (BMI 30-39.9) Obstructive sleep apnea Osteoarthritis Pulmonary nodule RLS (restless legs syndrome) Tennis elbow Vitamin B12 deficiency Vitamin D deficiency Family History Family History Father Diabetes Throat cancer Heart disease Mother Ovarian cancer Pertinent family history: No pertinent family history Surgical History Surgical History History of diverticulosis History of elbow surgery History of partial gastrectomy History of right inguinal hernia repair Hx of brain surgery Hx of carpal tunnel repair Hx of colonoscopy Hx of foot surgery Hx of prostate biopsy Social History Social History Household Members: Spouse Housing: Apartment Alcohol intake: never Patient Tobacco Use Status: Never used Tobacco e-Cigarette/Vaping Use: Never Used Second Hand Smoke Exposure: No Use of substances other than those prescribed or required for medical reasons: No Advance Directives: No Advance Directives Information Provided: Yes service: No Current occupational status: retired Meds Allergies Allergy/AdvReac Type Severity Reaction Status Date / Time aspirin [ASPIRIN] Allergy Intermediate RASH WITH Verified 06/13/21 02:37 HIGH DOSES Penicillins Allergy Mild HIVES Verified 06/13/21 02:37 phenytoin [From Dilantin] Allergy Mild BURNING Verified 06/13/21 02:37 SENSATION IN BODY butalbital [BUTALBITAL] Allergy Unknown HIVES Verified 06/13/21 02:37 codeine [CODEINE] Allergy Unknown NAUSEA & Verified 06/13/21 02:37 VOMITING hydromorphone [From DILAUDID] Allergy Unknown UNKNOWN Verified 06/13/21 02:37 oxycodone [From PERCOCET] Allergy Unknown UNKNOWN Verified 06/13/21 02:37 thimerosal [THIMEROSAL] Allergy Unknown UNKNOWN Verified 06/13/21 02:37 doxycycline AdvReac Intermediate penile Verified 06/13/21 02:37 rash? [place] Allergy Unknown Unknown Uncoded 06/13/21 02:37 MOTRIN Allergy Unknown hives Uncoded 06/13/21 02:37 PERCOCET Allergy Unknown hives Uncoded 06/13/21 02:37 Active Medications: Current Medications Acetaminophen (Acetaminophen 325 Mg Tablet) 650 mg PO Q6H PRN PRN Reason: Pain, Mild (Pain Scale 1-3) Amitriptyline HCl (Amitriptyline Hcl 25 Mg Tablet) 25 mg PO BEDTIME [facility] Aspirin (Aspirin Enteric Coated 81 Mg Tablet.) 81 mg PO DAILY [facility] Last Admin: 06/13/21 11:19 Dose: 81 mg Documented by: Atorvastatin Calcium (Atorvastatin Calcium 40 Mg Tablet) 40 mg PO BEDTIME [facility] Docusate Sodium (Docusate Sodium 100 Mg Capsule) 100 mg PO DAILY PRN PRN Reason: Constipation Famotidine (Famotidine 20 Mg Tablet) 20 mg PO BEDTIME [facility] Gabapentin (Gabapentin 100 Mg Capsule) 100 mg PO DAILY [facility] Last Admin: 06/13/21 11:19 Dose: 100 mg Documented by: Lisinopril (Lisinopril 2.5 Mg Tablet) 2.5 mg PO DAILY [facility]; Protocol Last Admin: 06/13/21 11:19 Dose: 2.5 mg Documented by: Meclizine HCl (Meclizine Hcl 25 Mg Tablet) 25 mg PO TID PRN PRN Reason: dizziness Non-Formulary Medication (Meloxicam) 1 tab PO DAILY [facility] Ondansetron HCl (Ondansetron Hcl 4 Mg/2 Ml Vial) 4 mg IVPUSH Q8H PRN PRN Reason: Nausea and Vomiting Pharmacy Consult (Consult Rx Perform Med Rec) 1 each MISCELLANE ONCE PRN PRN Reason: Consult order Sertraline HCl (Sertraline Hcl 100 Mg Tablet) 100 mg PO DAILY [facility] Last Admin: 06/13/21 11:19 Dose: 100 mg Documented by: Trazodone HCl (Trazodone Hcl 50 Mg Tablet) 50 mg PO BEDTIME PRN PRN Reason: insomnia Vitamin D (Cholecalciferol (Vitamin D3) 25 Mcg Tablet) 50 mcg PO DAILY [facility] Last Admin: 06/13/21 11:19 Dose: 50 mcg Documented by: Home Medications Medication Instructions Recorded Confirmed Last Taken Type amitriptyline 25 mg tablet 1 tab PO BEDTIME 06/13/21 06/13/21 Unknown History aspirin 81 mg tablet,delayed 1 tab PO DAILY 06/13/21 06/13/21 06/11/21 History release atorvastatin 10 mg tablet 1 tab PO BEDTIME 06/13/21 06/13/21 06/11/21 History cholecalciferol (vitamin D3) 50 1 cap PO DAILY 06/13/21 06/13/21 06/11/21 History mcg (2,000 unit) capsule dicyclomine 10 mg capsule 1 - 2 cap PO QID PRN 06/13/21 06/13/21 Unknown History dulaglutide 1.5 mg/0.5 mL 1.5 mg SUBCUT MO@0900 06/13/21 06/13/21 06/10/21 History subcutaneous pen injector (Trulicity) famotidine 20 mg tablet 1 tab PO BEDTIME 06/13/21 06/13/21 06/11/21 History gabapentin 100 mg capsule 1 cap PO DAILY 06/13/21 06/13/21 06/11/21 History lisinopril 2.5 mg tablet 1 tab PO DAILY 06/13/21 06/13/2106/11/21 History meclizine 25 mg tablet 1 tab PO TID PRN 06/13/21 06/13/21 Unknown History meloxicam 15 mg tablet 1 tab PO DAILY 06/13/21 06/13/21 06/11/21 History metformin 1,000 mg tablet 1 tab PO BID 06/13/21 06/13/21 06/11/21 History sertraline 100 mg tablet 1 tab PO DAILY 06/13/21 06/13/21 06/11/21 History trazodone 50 mg tablet 1 tab PO BEDTIME PRN 06/13/21 06/13/21 Unknown History Physical Exam Vital Signs: Vital Signs: Last Vital Signs Temp 97.8 F 06/13/21 15:41 Pulse 81 06/13/21 15:41 Resp 14 06/13/21 15:41 BP 140/71 H 06/13/21 15:41 Pulse Ox 98 06/13/21 15:41 Body Mass Index 29.1 Const: General: cooperative and no acute distress Orientation/consciousness: patient oriented x3 Eyes: General: appearance normal, both eyes and all related structures Resp: Effort & Inspection: normal respiratory effort Auscultation: clear to auscultation bilaterally Cardio: Rate: regular rate Rhythm: regular rhythm GI: Palpation (GI): Soft to palpation Auscultation: normal bowel sounds Skin: General skin exam: no rashes or lesions noted Neuro: Other: Patient has no neurological deficits, strength is 5/5 in all extremities, intracnial nerves 2-12 intact General: patient oriented x3 Cognition (Neuro): normal cognition Extrem: General: Yes normal to inspection and Yes no pedal edema Results Labs CBC & Chem 7: 06/12/21 18:45 06/12/21 18:45 Labs: Short CBC 06/12/21 Range/Units 18:45 WBC 8.2 (4.8-10.8) X10*3/uL Hgb 14.4 (14.0-18.0) g/dl Hct 43.1 (42.0-52.0) % Plt Count 275 (160-400) X10*3/uL BMP 06/12/21 18:45 Sodium 136 Potassium 4.8 Chloride 101 Carbon Dioxide 28 BUN 9 Creatinine 1.25 Calcium 9.6 D Liver Function 06/12/21 Range/Units 18:45 Total Bilirubin 0.7 (0.0-1.0) mg/dL Direct Bilirubin 0.3 (0.0-0.5) mg/dL AST 21 (5-37) U/L ALT 18 (0-40) U/L Alkaline Phosphatase 117 (39-117) U/L Albumin 4.4 (3.5-5.0) g/dL Urine 06/13/21 Range/Units 11:07 Urine Color YELLOW Urine Appearance CLEAR Urine pH 7.0 (5.0-8.0) Ur Specific [place] 1.010 (1.005-1.025) Urine Protein NEG (NEG-TRACE) MG/DL Urine Glucose (UA) 100 H (NEG) MG/DL Assessment and Plan (1) Acute CVA (cerebrovascular accident): Status: Acute I find no evidence of an acute stroke and his history is spotty at best and does not fit any neural logical vascular patterns. I do not believe he's had a stroke or a TIA. He appears to have more pain symptomss in the left neck and left arm that may suggest problems with the cervical spine again. (2) Neck pain: Status: Acute His symptoms are more consistent with cervical root problems. Would recommend MRI of the cervical spine. 71-year-old male with past medical history of diabetes presents to the hospital with complaints of arm week # acute CVA - CT angiogram of head and neck negative - patient also complained of neck pain, CT cervical spine neg - will obtain MRI - continue aspirin, increase statin to 40 mg - consult neurology # neck pain - possibly osteoarthritis - next CT neg # hypertension - stable - continue home medications # diabetes - low-dose sliding scale answer - diabetic diet - hold oral anti hyperglycemics Continue all other chronic medication DVT prophylaxis: Lovenox Procedures Date of Service Date of Service: 06/13/21
[2021-06-13] MEDS: Amitriptyline HCl 25 MG TABLET PO (21:14)
[2021-06-13] MEDS: Atorvastatin Calcium 40 MG TABLET PO (21:14)
[2021-06-13] MEDS: Famotidine 20 MG TABLET PO (21:14)
--- NOTE | 2021-06-13 22:02 | PC.NURSE ---
patient moved rooms and now under this rns care. patient is alert able to follow commands, neuros grossly intact. patient reporting baseline movement and symptoms. offering no complaints at this time. plan for admission for patient and follow up with neurologist.
[2021-06-14 03:32] VITALS: PULSE 60; RESP 16
[2021-06-14 04:26] VITALS: BP 124/71; PULSE 66; RESP 18; TEMP 36.6; O2SAT 96
[2021-06-14 04:33] LABS: Glucose, Whole Blood 195 mg/dL (60-115)
[2021-06-14 06:21] LABS: MANUAL DIFF FLAG NO
[2021-06-14 06:46] LABS: Basophils Percent Auto 0.2 % (0-2); Eosinophils Absolute Auto 0.6 X10*3/uL (0.0-0.4); Eosinophils Percent Auto 7.3 % (0-4); Hematocrit 41.2 % (42.0-52.0); Hemoglobin 13.5 g/dl (14.0-18.0); Imm Gran Abs Auto 0.02 X10*3/uL (0.00-0.03); Imm Gran Pct Auto 0.2 % (0.0-0.4); Lymphocytes Absolute Auto 2.7 X10*3/uL (1.2-4.9); Lymphocytes Percent Auto 32.6 % (20-40); Mean Corpuscular HGB Conc 32.8 g/dl (31.0-36.0); Mean Corpuscular Hemoglobin 29.3 pg (27.0-33.0); Mean Corpuscular Volume 89.4 fL (80.0-98.0); Mean Platelet Volume 9.5 fL (9.4-12.4); Monocytes Absolute Auto 0.7 X10*3/uL (0.1-1.2); Monocytes Percent Auto 8.4 % (2-11); Neutrophils Absolute Auto 4.2 x10*3/uL (2.0-8.3); Neutrophils Percent Auto 51.3 % (45-73); Platelet Count 271 X10*3/uL (160-400); Red Blood Count 4.61 X10*6/uL (4.60-5.80); Red Cell Distribution Width 12.6 % (11.0-16.0); White Blood Count 8.1 X10*3/uL (4.8-10.8)
[2021-06-14 06:55] LABS: Anion Gap 12 (12-20); Blood Urea Nitrogen 10 mg/dL (9-16); Calcium 8.8 mg/dL (8.4-10.2); Carbon Dioxide 27 mmol/L (22-29); Chloride 103 mmol/L (96-108); Cholesterol 114 mg/dL; Creatinine Clr Calc Pharmacy 54.5; Estimated Glomerular Filt Rate 58; Glucose Random 173 mg/dL (60-115); HDL Cholesterol 42 mg/dL; LDL Cholesterol Calculated 62 mg/dl; Potassium 4.7 mmol/L (3.3-5.1); Sodium 137 mmol/L (135-145); Triglycerides 54 mg/dL
[2021-06-14 07:10] VITALS: BP 113/68; PULSE 58; RESP 18; TEMP 36.6; O2SAT 96
[2021-06-14 07:18] LABS: Glucose, Whole Blood 152 mg/dL (60-115)
--- NOTE | 2021-06-14 09:23 | MHC.CM.PN ---
Addendum entered by Marjorie Valles 06/14/21 11:44: PT CLEARED TODAY, HOME WITH PT SERVICES CM CONTACTED [facility], ([phone]) WHO REPORTED [facility] WOULD PROVIDE PT SERVICES POST DC. PT WILL DC HOME TODAY WITH PT SERVICES TO BE PROVIDED BY [facility] FAMILY TO TRANSPORT Original Note: CM MET WITH PT, HIS NIEVES, AND HIS DAUGHTER FARTUN WHO WAS ON FACE TIME WITH THEM. THEY REPORT THE PT LIVES AT HOME WITH HIS AND IS INDEPENDENT WITH CARE PT HAS A CANE AND NO OTHER DME. HE ALSO HAS NO HOME SERVICES PT HAS A HCP ON FILE NAMING FARTUN HIS PRIMARY, AND NIEVES HIS ALTERNATE AGENTS PTS PCP IS DONG KEARNS IMM DELIVERED PT HAS BEEN SEEN BY BOTH PT AND OT. OT HAS CLEARED PT AND DISCHARGED HIM FROM SERVICES. PT IS RECOMMENDING HOME VS HOME WITH PT. A REFERRAL WAS PLACED TO [facility] PER PT PREFERENCES. CM WILL OBTAIN AUTH FROM [facility] ONCE PT NEEDS ARE CONFIRMED FAMILY WILL TRANSPORT
[2021-06-14 09:42] VITALS: BP 113/68; PULSE 58; O2SAT 96
[2021-06-14 10:40] VITALS: BP 113/68; PULSE 58
[2021-06-14] MEDS: Aspirin Enteric Coated 81 MG TABLET.DR PO (10:40)
[2021-06-14] MEDS: Gabapentin 100 MG CAPSULE PO (10:40)
[2021-06-14] MEDS: lisinopriL 2.5 MG TABLET PO (10:40)
[2021-06-14] MEDS: Sertraline HCL 100 MG TABLET PO (10:40)
[2021-06-14] MEDS: Cholecalciferol (Vitamin D3) 25 MCG TABLET 50 MCG PO (10:40)
--- NOTE | 2021-06-14 11:06 | P.DS_ITS ---
DS: Providers Provider Date of Service: 06/14/21 Date of admission: 06/13/21 08:13 Primary care physician: Den Leal MD Consults: 06/13/21 10:20 Consult to Neurology Routine Consulting Provider: Neurology [facility] Reason for consultation: r/o cva Has provider been notified: No 06/13/21 10:52 Consult to Neurology Routine Consulting Provider: Neurology [facility] Reason for consultation: arm weakness Has provider been notified: No Consult to Neurology Routine Consulting Provider: Neurology [facility] Reason for consultation: weakness, CVA? Has provider been notified: No DS: Diagnosis Discharge Diagnosis (1) Acute CVA (cerebrovascular accident): Status: Acute (2) Neck pain: Status: Acute DS: Summary Hospital Course Hospital Course: ?71-year-old male with past medical history of COPD, diabetes, HTN, HLD, insomnia, history of migraine, history of brain tumor status post craniotomy, GERD who presents to the hospital with complaints of sudden onset numbness tingling and weakness of his upper extremities.? Patient reports that he woke up at 3:00 a.m. the day prior with severe neck pain, left shoulder pain, numbness tingling and weakness in his arms bilaterally.? He reports that his left arm was weaker than his right, this lasted for about 2 hours and resolved.? He was having migraines but this is usual for him.? Patient reports that he was just feeling lousy all day and therefore asked to come to the hospital by his daughter.? He denies having any lower extremity weakness numbness or tingling.? He reports that his symptoms have now resolved with no chest pain, no shortness of breath, no abdominal pain nausea or vomiting, no diarrhea constipation, no urinary symptoms. Hospital course: Patient came with episode of left arm weakness-which resolved spontaneously. His brain imaging including MRI seems negative for new stroke. Seen by Neurology and C-spine MRI was also done: Which shows cervical spine facet arthropathy, patient is currently asymptomatic discussed with Neuro patient can go home and continue current management. As per neuro her sees symptoms are not related to TIA versus stroke. Further management out patiently with PCP and consider outpatient neuro evaluation if needed. Above management discussed with the patient in detail length heand his - they both understans and in agreement with the above plan, time spent 50 minutes and 50% time spent on counseling. Significant findings: As above. Procedures performed: None. Treatment and response: As above. Complications: None. Time Spent with Patient Time attestation: Total time spent providing and/or coordinating discharge services: Discharge coordination time: Greater than 30 minutes Quality: Stroke Does the patient have a stroke diagnosis?: No Physical Exam Vital Signs: Vital Signs: Last Vital Signs Temp 97.9 F 06/14/21 07:10 Pulse 58 06/14/21 10:40 Resp 18 06/14/21 07:10 BP 113/68 06/14/21 10:40 Pulse Ox 96 06/14/21 09:42 Body Mass Index 29.1 Appearance: Alert.? Oriented X3.? not in distress.? Eyes: Pupils equal, round and reactive to light.? Sclera nonicteric.? ENT: Pharynx normal.? Moist mucous membranes. cvs: rrr, [id number] , no murmur res: clear to auscultation ,no rhonchii or wheezing abd: no rebound or guarding ,nt, bs present. ext pulses present , no cyanosis ,Gait well balanced well coordinated. neuro: axo3 , nonfocal. DS: Data Data Completed and Pending Labs on day of discharge: Laboratory Results - last 24 hr 06/13/21 06/13/21 06/13/21 10:57 11:07 13:15 WBC RBC Hgb Hct MCV MCH MCHC RDW Plt Count MPV Immature Gran % (Auto) Neut % (Auto) Lymph % (Auto) [place] % (Auto) Eos % (Auto) Baso % (Auto) Lymph # (Auto) [place]ke[place] # (Auto) Eos # (Auto) Baso # (Auto) Abs Immat Gran (auto) Absolute Neuts (auto) Absolute Nucleated RBC Nucleated RBC % (auto) Sodium Potassium Chloride Carbon Dioxide Anion Gap BUN Creatinine Estim Creat Clear Calc Estimated GFR POC Glucose 135 H Random Glucose Calcium Triglycerides Cholesterol LDL Cholesterol, Calc HDL Cholesterol Urine Color YELLOW Urine Appearance CLEAR Urine pH 7.0 Ur Specific [place] 1.010 Urine Protein NEG Urine Glucose (UA) 100 H Urine Ketones NEG Urine Blood NEG Urine Nitrite NEG Ur Leukocyte Esterase NEG COVID-19 (NOREEN) Negative COVID-19 Clin Com See Note 06/14/21 06/14/21 06/14/21 04:27 05:48 05:48 WBC 8.1 RBC 4.61 Hgb 13.5 L Hct 41.2 L MCV 89.4 MCH 29.3 MCHC 32.8 RDW 12.6 Plt Count 271 MPV 9.5 Immature Gran % (Auto) 0.2 Neut % (Auto) 51.3 Lymph % (Auto) 32.6 Mcke[place] % (Auto) 8.4 Eos % (Auto) 7.3 H Baso % (Auto) 0.2 Lymph # (Auto) 2.7 Mckean # (Auto) 0.7 Eos # (Auto) 0.6 H Baso # (Auto) 0.0 Abs Immat Gran (auto) 0.02 Absolute Neuts (auto) 4.2 Absolute Nucleated RBC 0.000 Nucleated RBC % (auto) 0.0 Sodium 137 Potassium 4.7 Chloride 103 Carbon Dioxide 27 Anion Gap 12 BUN 10 Creatinine 1.24 Estim Creat Clear Calc 54.5 Estimated GFR 58 POC Glucose 195 H Random Glucose 173 H Calcium 8.8 D Triglycerides 54 Cholesterol 114 LDL Cholesterol, Calc 62 HDL Cholesterol 42 Urine Color Urine Appearance Urine pH Ur Specific [place] Urine Protein Urine Glucose (UA) Urine Ketones Urine Blood Urine Nitrite Ur Leukocyte Esterase COVID-19 (NOREEN) COVID-[facility] 06/14/21 07:12 WBC RBC Hgb Hct MCV MCH MCHC RDW Plt Count MPV Immature Gran % (Auto) Neut % (Auto) Lymph % (Auto) [place] % (Auto) Eos % (Auto) Baso % (Auto) Lymph # (Auto) [place] # (Auto) Eos # (Auto) Baso # (Auto) Abs Immat Gran (auto) Absolute Neuts (auto) Absolute Nucleated RBC Nucleated RBC % (auto) Sodium Potassium Chloride Carbon Dioxide Anion Gap BUN Creatinine Estim Creat Clear Calc Estimated GFR POC Glucose 152 H Random Glucose Calcium Triglycerides Cholesterol LDL Cholesterol, Calc HDL Cholesterol Urine Color Urine Appearance Urine pH Ur Specific [place] Urine Protein Urine Glucose (UA) Urine Ketones Urine Blood Urine Nitrite Ur Leukocyte Esterase COVID-19 (NOREEN) COVID-19 Clin Com Additional Comments Additional comments: C-spine mri: IMPRESSION: 1. At C6-C7 there is facet arthropathy and there is a posterior disc protrusion which is most prominent in the midline. There is mild impingement on the ventral spinal cord and there is moderate central stenosis. There is severe left and moderate right foraminal narrowing. ? 2. At C5-C6 there is facet arthropathy and there is a soft disc protrusion posteriorly but there is no cord compression or central stenosis. There is severe bilateral foraminal narrowing. ? 3. At C3-C4 and C4-C5 there are facet arthropathic changes. There is some effacement of CSF around the spinal cord at these levels, but there is no spinal cord compression or central stenosis. There are uncovertebral osteophytes and there is severe left and moderate right foraminal narrowing. Brain mri: IMPRESSION: No acute intracranial abnormality. Chronic encephalomalacic and gliotic changes seen in the left frontal lobe subjacent to craniotomy. Chronic infarct within the left inferior cerebellum and chronic lacunar infarcts in the right cerebellum. Cta: IMPRESSION: 1. No acute vascular abnormalities are identified head and neck. Specifically, no evidence of arterial occlusion, stenoses, or aneurysm. 2. Chronic multifocal encephalomalacia, most notably in the left frontal lobe underlying the left frontal craniotomy. No acute intracranial findings. Discharge Plan Discharge Patient Disposition: Home Health Service Discharge Diagnosis: cervical spine facet arthropathy Referrals: Den Leal MD [Primary Care Provider] - 1 Week Discharge Medications: Continued trazodone 50 mg tablet 1 tab PO BEDTIME PRN (Reason: insomnia) RF: 0 atorvastatin 10 mg tablet 1 tab PO BEDTIME RF: 0 meloxicam 15 mg tablet 1 tab PO DAILY RF: 0 sertraline 100 mg tablet 1 tab PO DAILY RF: 0 aspirin 81 mg tablet,delayed release (DR/EC) 1 tab PO DAILY RF: 0 famotidine 20 mg tablet 1 tab PO BEDTIME RF: 0 amitriptyline 25 mg tablet 1 tab PO BEDTIME RF: 0 meclizine 25 mg tablet 1 tab PO TID PRN (Reason: dizziness) RF: 0 metformin 1,000 mg tablet 1 tab PO BID RF: 0 gabapentin 100 mg capsule 1 cap PO DAILY RF: 0 lisinopril 2.5 mg tablet 1 tab PO DAILY RF: 0 dicyclomine 10 mg capsule 1 - 2 cap PO QID PRN (Reason: Stomach Upset) RF: 0 cholecalciferol (vitamin D3) 50 mcg (2,000 unit) capsule 1 cap PO DAILY RF: 0 Trulicity 1.5 mg/0.5 mL pen injector 1.5 mg subcut MO@0900 RF: 0 Discharge Orders: Discharge Order (Routine); Ordered 06/14/21 Ordered By: Michael Sanches Diet: advance to usual diet, diabetic diet, low fat, low cholesterol and low salt diet Activity on Discharge: As tolerated Stand Alone Forms: Patient Portal Discharge page Care Plan Goals: Patient came with episode of left arm weakness-which resolved spontaneously. His brain imaging including MRI seems negative for new stroke. Seen by Neurology and C-spine MRI was also done: Which shows cervical spine facet arthropathy, patient is currently asymptomatic discussed with Neuro patient can go home and continue current management. As per neuro her sees symptoms are not related to TIA versus stroke. Further management out patiently with PCP and consider outpatient neuro evaluation if needed. Health Concerns: As above. Plan of Treatment: As above. Assessment: As above.
--- NOTE | 2021-06-14 11:12 | W.MHC.F2F ---
Service Date Service Date: 06/14/21 Encounter Date of encounter: 06/14/21 Encounter: Neck pain, COPD, diabetes, osteoarthritis Reasons for Services Reason for physical therapy: home safety and mobility, therapeutic exercises, restore joint function, gait/transfer training, assess need for DME, ADL training, energy conservation and other MD Overseeing Care: Den Leal Homebound: Leaving the home is medically contraindicated at this time without the asist of a device and/or another person due th the listed conditions above and below. Homebound supporting statement: Patient generally weak, multiple comorbidities ,need her to going to appointments. Certification: Based on the above findings, I certify that this patient is confined to the home and needs intermittent custodial care, physical therapy and/or speech therapy, or continues to need occupational therapy. The patient is under my care, and I have initiated the establishment of the plan of care. The patient will be followed by a physician who will periodically review the plan of care.
== END 2021-06-14 11:45 | disposition home health service (06) | DRG 552 ==
LOC: HO.ED 06-13 01:58 → HO.EDOVER 06-13 08:16 → HO.IMC 06-14 03:43
PROVIDERS: Admitting Provider Internal Medicine; Emergency Provider Internal Medicine; PCP Internal Medicine; Visit Provider Internal Medicine
DX: M47.812 Spondylosis without myelopathy or radiculopathy, cervical region (principal); K21.9 Gastro-esophageal reflux disease without esophagitis; G47.30 Sleep apnea, unspecified; E11.9 Type 2 diabetes mellitus without complications; M54.2 Cervicalgia; Z20.822 Contact with and (suspected) exposure to COVID-19; Z88.0 Allergy status to penicillin; Z88.5 Allergy status to narcotic agent; Z88.6 Allergy status to analgesic agent; Z79.82 Long term (current) use of aspirin; Z79.84 Long term (current) use of oral hypoglycemic drugs; Z79.899 Other long term (current) drug therapy
CPT/HCPCS: 36415; 70496; 70498; 70551; 72125; 72141; 80048; 80053; 80061; 81003; 82248; 82947; 85025; 87635; 93005; 96374; 96375; 97116; 97161; 97165; 97530; 99285; J2270; J2405; Q9967

== ENCOUNTER 2021-06-24 | Outpatient (REF) | payer MEDICARE, SELFPAY ==
[2021-06-24 12:07] VITALS: BMI 31.9
[2021-06-24 12:10] VITALS: BP 162/90; PULSE 68; RESP 20; O2SAT 98
--- NOTE | 2021-06-24 12:17 | P.CONAN_ITS ---
HPI - Anesthesia Eval Consult details Narrative: 07/01/21 - Pt in ED with bacterial bronchitis, COPD exacerbation. Started on abx/steroid. Gen Surgeon office notified that patient will need reschedule with PCP clearance. Neuro clearance still pending. 71yo [place] [facility] [place] for upper extremity numbness - acute stroke r/o, consider migraine or cervical neuralgia. To follow up with neuro 06/25/21 [facility] Active Problems Active Problems: All Active Problems (Updated 06/21/21 @ 09:42 by Blanca Maguire, TOPOGRAPHICAL SURVEYOR-C) Cervical radiculopathy (Acute) Facet arthropathy of spine (Acute) Neck pain (Acute) Acute CVA (cerebrovascular accident) (Acute) Lipoma of abdominal wall (Acute) Right inguinal hernia (Acute) Headache (Acute) Recurrent major depression (Acute) Brain tumor (Acute) Obesity due to excess calories (Acute) COVID-19 (Acute) Neck pain (Acute) Balanitis (Acute) Anemia (Acute) Pes anserinus bursitis of right knee (Acute) Upper back pain (Acute) IBS (irritable bowel syndrome) (Acute) Hypercholesterolemia (Acute) Obstructive sleep apnea (Acute) Obesity (BMI 30-39.9) (Acute) GERD (gastroesophageal reflux disease) (Acute) Essential hypertension (Acute) Diabetes mellitus with hyperglycemia (Acute) Migraine (Acute) Past Medical History Medical History (Updated 07/01/21 @ 01:40 by Segun Reeves MD) BERNARD positive BPH (benign prostatic hyperplasia) Brain tumor Calcaneal spur, right COPD (chronic obstructive pulmonary disease) Diabetes mellitus with hyperglycemia Erectile dysfunction Essential hypertension GERD (gastroesophageal reflux disease) Grand mal seizure disorder History of carpal tunnel syndrome Hypercholesterolemia Inguinal hernia, bilateral Insomnia Lipoma of abdominal wall Migraine Obesity (BMI 30-39.9) Obstructive sleep apnea Osteoarthritis Pulmonary nodule RLS (restless legs syndrome) Stroke Tennis elbow Vitamin B12 deficiency Vitamin D deficiency Family History Family History (Updated 06/21/21 @ 09:10 by Amber Oviedo) Father Diabetes Throat cancer Heart disease Mother Ovarian cancer Family history of problems with anesthesia: No Surgical History Surgical History History of diverticulosis History of elbow surgery History of partial gastrectomy History of right inguinal hernia repair Hx of brain surgery Hx of carpal tunnel repair Hx of colonoscopy Hx of foot surgery Hx of prostate biopsy History of Problems with Anesthesia: No Social History Social History Household Members: Spouse Housing: Apartment Are you a primary long term care pharmacist to a significant other at home: No Do you presently have visiting nurse or other home services: Yes ([facility]) Alcohol intake: never Patient Tobacco Use Status: Never used Tobacco e-Cigarette/Vaping Use: Never Used Second Hand Smoke Exposure: No Advance Directives: No Advance Directives Information Provided: No service: No Current occupational status: retired Narrative Narrative: No recent illness No CP. COPD stable. Was walking 2 miles prior to issue with hernia. Meds Allergies Allergy/AdvReac Type Severity Reaction Status Date / Time aspirin [ASPIRIN] Allergy Intermediate RASH WITH Verified 06/24/21 12:06 HIGH DOSES Penicillins Allergy Mild HIVES Verified 06/24/21 12:06 phenytoin [From Dilantin] Allergy Mild BURNING Verified 06/24/21 12:06 SENSATION IN BODY butalbital [BUTALBITAL] Allergy Unknown HIVES Verified 06/24/21 12:06 codeine [CODEINE] Allergy Unknown NAUSEA & Verified 06/24/21 12:06 VOMITING hydromorphone [From DILAUDID] Allergy Unknown UNKNOWN Verified 06/24/21 12:06 oxycodone [From PERCOCET] Allergy Unknown UNKNOWN Verified 06/24/21 12:06 thimerosal [THIMEROSAL] Allergy Unknown UNKNOWN Verified 06/24/21 12:06 doxycycline AdvReac Intermediate penile Verified 06/24/21 12:06 rash? [place] Allergy Unknown Unknown Uncoded 06/24/21 12:06 MOTRIN Allergy Unknown hives Uncoded 06/24/21 12:06 Home Medications Medication Instructions Recorded Confirmed Last Taken Type aspirin 81 mg tablet,delayed 1 tab PO DAILY 06/13/21 06/21/21 06/11/21 History release cholecalciferol (vitamin D3) 50 1 cap PO DAILY 06/13/21 06/21/21 06/11/21 History mcg (2,000 unit) capsule famotidine 20 mg tablet 1 tab PO BEDTIME 06/13/21 06/21/21 06/11/21 History lisinopril 2.5 mg tablet 1 tab PO DAILY 06/13/21 06/21/21 06/11/21 History meloxicam 15 mg tablet 1 tab PO DAILY 06/13/21 06/21/21 06/11/21 History metformin 1,000 mg tablet 1 tab PO BID 06/13/21 06/21/21 06/11/21 History trazodone 50 mg tablet 1 tab PO BEDTIME PRN 06/13/21 06/21/21 Unknown History albuterol sulfate 90 mcg/actuation 2 puff PO Q4-6H PRN 06/24/21 06/24/21 Unknown History aerosol inhaler (Ventolin HFA) insulin glargine 100 unit/mL (3 20 unit SUBCUT DAILY 06/24/21 06/24/21 Unknown History mL) subcutaneous pen (Lantus Solostar U-100 Insulin) Exam Exam Date and Time: June 24, 2021 1217 Height,Weight and Vital Signs: Height 5 ft 4 in Weight 84.368 kg Last Vital Signs Pulse 68 06/24/21 12:10 Resp 20 06/24/21 12:10 BP 162/90 H 06/24/21 12:10 Pulse Ox 98 06/24/21 12:10 Pertinent Lab Results Pertinent Lab Results: Laboratory Tests 06/14/21 06/14/21 05:48 05:48 WBC 8.1 Hgb 13.5 L Hct 41.2 L Plt Count 271 Sodium 137 Potassium 4.7 Chloride 103 Carbon Dioxide 27 BUN 10 Creatinine 1.24 Narrative Narrative: EKG 06/2021 Vent. Rate : 073 BPM ? ? Atrial Rate : 073 BPM ?? P-R Int : 138 ms? QRS Dur : 076 ms ? ? QT Int : 376 ms ? ? ? P-R-T Axes : 001 015 030 degrees ?? QTc Int : 414 ms ? Normal sinus rhythm Normal ECG ? No significant changes seen Brain mri 06/2021: IMPRESSION: No acute intracranial abnormality. Chronic encephalomalacic and gliotic changes seen in the left frontal lobe subjacent to craniotomy. Chronic infarct within the left inferior cerebellum and chronic lacunar infarcts in the right cerebellum. Cta 06/2021: IMPRESSION: 1. No acute vascular abnormalities are identified head and neck. Specifically, no evidence of arterial occlusion, stenoses, or aneurysm. 2. Chronic multifocal encephalomalacia, most notably in the left frontal lobe underlying the left frontal craniotomy. No acute intracranial findings. Airway Mallampati Class: I TM Dist: >3cm Neck ROM: Full (Mild neck pain with extension) Loose/Missing/Broken Teeth: Yes (No lower teeth, multiple missing top teeth) Heart: RRR Lungs: Inspiratory wheezes throughout. (Pt did not use inhaler today. Instructed use after appt and preop) Assessment and Plan Assessment Anesthesia Assessment: Anesthesia Plan Discussed and PAT Visit Final Anesthetic Review Family History of Problems with Anesthesia: No History of Problems with Anesthesia: No
[2021-06-24 13:22] LABS: Estimated Average Glucose 200 mg/dL; Hemoglobin A1c % 8.6 %
== END 2021-06-24 00:01 | disposition home or self-care (01) ==
LOC: HO.PAT
PROVIDERS: Nurse Practitioner; PCP Internal Medicine; Visit Provider Surgery
DX: D17.1 Benign lipomatous neoplasm of skin and subcutaneous tissue of trunk (principal); K40.90 Unilateral inguinal hernia, without obstruction or gangrene, not specified as recurrent; I69.398 Other sequelae of cerebral infarction; I63.81 Other cerebral infarction due to occlusion or stenosis of small artery; M54.2 Cervicalgia; K08.409 Partial loss of teeth, unspecified cause, unspecified class; Z90.3 Acquired absence of stomach [part of]; Z88.6 Allergy status to analgesic agent; Z88.0 Allergy status to penicillin; Z88.8 Allergy status to other drugs, medicaments and biological substances; Z79.4 Long term (current) use of insulin; Z79.84 Long term (current) use of oral hypoglycemic drugs; Z79.899 Other long term (current) drug therapy
CPT/HCPCS: 36415; 83036

== ENCOUNTER 2021-06-30 20:29 | Emergency (ER) | payer MEDICARE, SELFPAY ==
--- NOTE | ~2021-06-30 | XR_ITS ---
EXAMINATION: XR CHEST CLINICAL INFORMATION: Cough COMPARISON: 09/15/2020 TECHNIQUE: 2 views of the chest were obtained. FINDINGS: Lung volumes are symmetric. No focal consolidation is seen. Minimal curvilinear left basilar opacity suggests atelectasis. No evidence of pneumothorax, pleural effusion, or pulmonary edema. The cardiomediastinal contour is unremarkable. No acute osseous findings are seen. Clips are noted in the epigastric region. XR/XR chest 2V IMPRESSION: Curvilinear left basilar opacity favoring atelectasis, without additional acute findings.
[2021-06-30 21:28] VITALS: BP 139/74; PULSE 98; RESP 18; TEMP 36.6; O2SAT 96; BMI 29.9
[2021-06-30 22:06] LABS: COVID-19 Test Negative (Negative)
--- NOTE | 2021-07-01 00:40 | ED.GENADULT ---
HPI - General Adult General Chief complaint: General Medical Stated complaint: cough, cp Time Seen by Provider: 07/01/21 00:31 Source: patient and old records reviewed History of Present Illness HPI narrative: Patient complaining of 4 days of cough. Positive yellow phlegm. Fevers on the 1st day but not since Pain with coughing only. No significant dyspnea He has a history of COPD He has been using his inhaler without much affect. Related Data Home Medications Medication Instructions Recorded Confirmed aspirin 81 mg tablet,delayed 1 tab PO DAILY 06/13/21 06/21/21 release cholecalciferol (vitamin D3) 50 1 cap PO DAILY 06/13/21 06/21/21 mcg (2,000 unit) capsule famotidine 20 mg tablet 1 tab PO BEDTIME 06/13/21 06/21/21 lisinopril 2.5 mg tablet 1 tab PO DAILY 06/13/21 06/21/21 meloxicam 15 mg tablet 1 tab PO DAILY 06/13/21 06/21/21 metformin 1,000 mg tablet 1 tab PO BID 06/13/21 06/21/21 trazodone 50 mg tablet 1 tab PO BEDTIME PRN 06/13/21 06/21/21 albuterol sulfate 90 mcg/actuation 2 puff PO Q4-6H PRN 06/24/21 06/24/21 aerosol inhaler (Ventolin HFA) insulin glargine 100 unit/mL (3 20 unit SUBCUT DAILY 06/24/21 06/24/21 mL) subcutaneous pen (Lantus Solostar U-100 Insulin) Previous Rx's Medication Instructions Recorded atorvastatin 40 mg tablet 40 mg PO BEDTIME #90 tab 06/21/21 diclofenac sodium 1 % topical gel 2 g TOPICAL QID #100 g 06/21/21 (Voltaren Arthritis Pain) dulaglutide 1.5 mg/0.5 mL 1.5 mg (0.5 mL) SUBCUT MO@0900 90 06/21/21 subcutaneous pen injector Days #6.5 ml (Trulicity) gabapentin 100 mg capsule 100 mg PO BID #60 cap 06/21/21 meclizine 25 mg tablet 25 mg PO TID PRN #60 tab 06/21/21 sertraline 100 mg tablet 100 mg PO DAILY 90 Days #90 tab 06/21/21 azithromycin 250 mg tablet 250 mg PO DAILY 4 Days #4 tab 07/01/21 (Zithromax) dextromethorphan polistirex 30 10 ml PO Q12H PRN #89 ml 07/01/21 mg/5 mL oral susp ext.release 12hr (Robitussin ER) prednisone 20 mg tablet 40 mg PO DAILY #10 tab 07/01/21 Allergies Allergy/AdvReac Type Severity Reaction Status Date / Time aspirin [ASPIRIN] Allergy Intermediate RASH WITH Verified 06/24/21 12:06 HIGH DOSES Penicillins Allergy Mild HIVES Verified 06/24/21 12:06 phenytoin [From Dilantin] Allergy Mild BURNING Verified 06/24/21 12:06 SENSATION IN BODY butalbital [BUTALBITAL] Allergy Unknown HIVES Verified 06/24/21 12:06 codeine [CODEINE] Allergy Unknown NAUSEA & Verified 06/24/21 12:06 VOMITING hydromorphone [From DILAUDID] Allergy Unknown UNKNOWN Verified 06/24/21 12:06 oxycodone [From PERCOCET] Allergy Unknown UNKNOWN Verified 06/24/21 12:06 thimerosal [THIMEROSAL] Allergy Unknown UNKNOWN Verified 06/24/21 12:06 doxycycline AdvReac Intermediate penile Verified 06/24/21 12:06 rash? Charlotte Allergy Unknown Unknown Uncoded 06/24/21 12:06 MOTRIN Allergy Unknown hives Uncoded 06/24/21 12:06 Review of Systems Constitutional: Constitutional: Reports fatigue Cardiovascular: Comments: No chest pain Respiratory: Comments: Cough with phlegm. Gastrointestinal: Comments: No abdominal pain other than with cough Endocrine: Endocrine: Reports fatigue PMFSH Past Medical History Medical History (Updated 07/01/21 @ 01:40 by Segun Reeves MD) BERNARD positive BPH (benign prostatic hyperplasia) Brain tumor Calcaneal spur, right COPD (chronic obstructive pulmonary disease) Diabetes mellitus with hyperglycemia Erectile dysfunction Essential hypertension GERD (gastroesophageal reflux disease) Grand mal seizure disorder History of carpal tunnel syndrome Hypercholesterolemia Inguinal hernia, bilateral Insomnia Lipoma of abdominal wall Migraine Obesity (BMI 30-39.9) Obstructive sleep apnea Osteoarthritis Pulmonary nodule RLS (restless legs syndrome) Stroke Tennis elbow Vitamin B12 deficiency Vitamin D deficiency Surgical History History of diverticulosis History of elbow surgery History of partial gastrectomy History of right inguinal hernia repair Hx of brain surgery Hx of carpal tunnel repair Hx of colonoscopy Hx of foot surgery Hx of prostate biopsy Family History Family History (Updated 06/21/21 @ 09:10 by Amber Oviedo) Father Diabetes Throat cancer Heart disease Mother Ovarian cancer Social History Social History Household Members: Spouse Housing: Apartment Are you a primary hospice home care coordinator to a significant other at home: No Do you presently have visiting nurse or other home services: Yes ([facility]) Alcohol intake: never Patient Tobacco Use Status: Never used Tobacco e-Cigarette/Vaping Use: Never Used Second Hand Smoke Exposure: No Advance Directives: No Advance Directives Information Provided: No service: No Current occupational status: retired Physical Exam Vital Signs: Vital Signs: Last Vital Signs Temp 97.9 F 06/30/21 21:28 Pulse 98 06/30/21 21:28 Resp 18 06/30/21 21:28 BP 139/74 06/30/21 21:28 Pulse Ox 96 06/30/21 21:28 Body Mass Index 29.9 Const: Other: Awake alert. No acute distress. HENMT: Other: Mild submandibular lymphadenopathy. Normal oropharynx without erythema or exudate. Neck: Other: No meningismus Chest: Other: Expiratory rhonchi. No focal rales Resp: Other: Expiratory rhonchi. No focal rales Cardio: Other: Regular rate and rhythm without murmurs rubs or gallops GI: Other: Soft nontender nondistended Skin: Other: Were pink and dry Course Course Course Narrative: Bronchitis Pneumonia COPD exacerbation Viral upper respiratory infection Prednisone Zithromax Chest x-ray 1:39 a.m.. Chest x-ray shows no obvious pneumonia. Stable for discharge home with a final diagnosis of bacterial bronchitis exacerbating COPD Medical Decision Making Lab Data Labs: Lab Results 06/30/21 Range/Units 21:41 COVID-19 ([facility]) Negative (Negative) COVID-19 Clin Com See Note Discharge Plan Discharge Clinical Impression: Bronchitis COPD (chronic obstructive pulmonary disease) Qualifiers: COPD type: unspecified COPD Qualified Code(s): J44.9 - Chronic obstructive pulmonary disease, unspecified Patient Disposition: Home, Self-Care Instructions: Acute Bronchitis (ED) Prescriptions: New prednisone 20 mg tablet 40 mg PO DAILY Qty: 10 RF: 0 azithromycin [Zithromax] 250 mg tablet 250 mg PO DAILY 4 Days Qty: 4 RF: 0 dextromethorphan polistirex [Robitussin ER] 30 mg/5 mL suspension,extended rel 12 hr 10 ml PO Q12H PRN (Reason: cough) Qty: 89 RF: 0 No Action atorvastatin 40 mg tablet 40 mg PO BEDTIME Qty: 90 RF: 3 Trulicity 1.5 mg/0.5 mL pen injector 1.5 mg subcut MO@0900 90 Days Qty: 6.5 RF: 3 meclizine 25 mg tablet 25 mg PO TID PRN (Reason: dizziness) Qty: 60 RF: 11 sertraline 100 mg tablet 100 mg PO DAILY 90 Days Qty: 90 RF: 0 Lantus Solostar U-100 Insulin 100 unit/mL (3 mL) insulin pen 20 unit subcut DAILY RF: 0 albuterol sulfate [Ventolin HFA] 90 mcg/actuation HFA aerosol inhaler 2 puff PO Q4-6H PRN (Reason: Wheezing) RF: 0 trazodone 50 mg tablet 1 tab PO BEDTIME PRN (Reason: insomnia) RF: 0 meloxicam 15 mg tablet 1 tab PO DAILY RF: 0 aspirin 81 mg tablet,delayed release (DR/EC) 1 tab PO DAILY RF: 0 famotidine 20 mg tablet 1 tab PO BEDTIME RF: 0 metformin 1,000 mg tablet 1 tab PO BID RF: 0 lisinopril 2.5 mg tablet 1 tab PO DAILY RF: 0 cholecalciferol (vitamin D3) 50 mcg (2,000 unit) capsule 1 cap PO DAILY RF: 0 gabapentin 100 mg capsule 100 mg PO BID Qty: 60 RF: 0 diclofenac sodium [Voltaren Arthritis Pain] 1 % gel 2 g topical QID Qty: 100 RF: 0
[2021-07-01] MEDS: Azithromycin 500 MG TABLET PO (00:53)
[2021-07-01] MEDS: predniSONE 20 MG TABLET 60 MG PO (00:53)
== END 2021-07-01 01:50 | disposition home or self-care (01) ==
PROVIDERS: Emergency Provider Emergency Medicine; PCP Internal Medicine
DX: J44.9 Chronic obstructive pulmonary disease, unspecified (principal); J40 Bronchitis, not specified as acute or chronic; R05.9 Cough, unspecified; R07.9 Chest pain, unspecified; Z20.822 Contact with and (suspected) exposure to COVID-19; Z79.899 Other long term (current) drug therapy
CPT/HCPCS: 36415; 71046; 87635; 99283

== ENCOUNTER 2021-08-09 14:44 | Emergency (ER) | payer MEDICARE, SELFPAY ==
[2021-08-09 16:27] VITALS: BP 133/81; PULSE 81; RESP 18; TEMP 36.7; O2SAT 100; BMI 30.9
== END 2021-08-09 19:42 | disposition left against medical advice (07) ==
PROVIDERS: Emergency Provider Emergency Medicine; PCP Internal Medicine
DX: R10.9 Unspecified abdominal pain (principal); E11.9 Type 2 diabetes mellitus without complications
CPT/HCPCS: 99281

== ENCOUNTER 2021-09-06 10:29 | Day surgery (SDC) | payer MEDICARE, SELFPAY ==
--- NOTE | 2021-09-05 08:54 | HO.ANESPROP2 ---
Documented by User: Aviva Cuevas NP 09/05/21 08:59 HPI - Anesthesia Eval Consult details Narrative: 71yo M for Right Inguinal Hernia Repair with Mesh & Excision of Abdominal Wall Lipoma PCP cleared Neuro cleared *Mult med allergies* PMFSH Active Problems Active Problems: All Active Problems (Updated 08/22/21 @ 12:39 by Den Leal MD) Eczema (Acute) Skin cyst (Acute) Acute bronchitis (Acute) Pre-operative clearance (Acute) IBS (irritable bowel syndrome) (Acute) Upper back pain (Acute) Pes anserinus bursitis of right knee (Acute) Anemia (Acute) Balanitis (Acute) Neck pain (Acute) COVID-19 (Acute) Obesity due to excess calories (Acute) Recurrent major depression (Acute) Headache (Acute) Right inguinal hernia (Acute) Acute CVA (cerebrovascular accident) (Acute) Neck pain (Acute) Facet arthropathy of spine (Acute) Cervical radiculopathy (Acute) Lipoma of abdominal wall (Acute) Brain tumor (Acute) Hypercholesterolemia (Acute) Obstructive sleep apnea (Acute) Obesity (BMI 30-39.9) (Acute) GERD (gastroesophageal reflux disease) (Acute) Essential hypertension (Acute) Diabetes mellitus with hyperglycemia (Acute) Migraine (Acute) Past Medical History Medical History BERNARD positive BPH (benign prostatic hyperplasia) Brain tumor Calcaneal spur, right COPD (chronic obstructive pulmonary disease) Diabetes mellitus with hyperglycemia Erectile dysfunction Essential hypertension GERD (gastroesophageal reflux disease) Grand mal seizure disorder History of carpal tunnel syndrome Hypercholesterolemia Inguinal hernia, bilateral Insomnia Lipoma of abdominal wall Migraine Obesity (BMI 30-39.9) Obstructive sleep apnea Osteoarthritis Pulmonary nodule RLS (restless legs syndrome) Stroke Tennis elbow Vitamin B12 deficiency Vitamin D deficiency Family History Family History Father Diabetes Throat cancer Heart disease Mother Ovarian cancer Family history of problems with anesthesia: No Surgical History Surgical History History of diverticulosis History of elbow surgery History of partial gastrectomy History of right inguinal hernia repair Hx of brain surgery Hx of carpal tunnel repair Hx of colonoscopy Hx of foot surgery Hx of prostate biopsy History of Problems with Anesthesia: No Social History Social History Household Members: Spouse Housing: Apartment Are you a primary field care manager to a significant other at home: No Do you presently have visiting nurse or other home services: Yes ([facility]) Alcohol intake: never Patient Tobacco Use Status: Never used Tobacco e-Cigarette/Vaping Use: Never Used Second Hand Smoke Exposure: No Use of substances other than those prescribed or required for medical reasons: No Are you DNR?: No Advance Directives: No Advance Directives Information Provided: Yes service: No Current occupational status: retired Meds Allergies Allergy/AdvReac Type Severity Reaction Status Date / Time aspirin [ASPIRIN] Allergy Intermediate RASH WITH Verified 08/22/21 11:50 HIGH DOSES Penicillins Allergy Mild HIVES Verified 08/22/21 11:50 phenytoin [From Dilantin] Allergy Mild BURNING Verified 08/22/21 11:50 SENSATION IN BODY butalbital [BUTALBITAL] Allergy Unknown HIVES Verified 08/22/21 11:50 codeine [CODEINE] Allergy Unknown NAUSEA & Verified 08/22/21 11:50 VOMITING hydromorphone [From DILAUDID] Allergy Unknown UNKNOWN Verified 08/22/21 11:50 oxycodone [From PERCOCET] Allergy Unknown UNKNOWN Verified 08/22/21 11:50 thimerosal [THIMEROSAL] Allergy Unknown UNKNOWN Verified 08/22/21 11:50 doxycycline AdvReac Intermediate penile Verified 08/22/21 11:50 rash? Charlotte Allergy Unknown Unknown Uncoded 08/14/21 14:09 MOTRIN Allergy Unknown hives Uncoded 08/14/21 14:09 Home Medications Medication Instructions Recorded Confirmed Last Taken Type famotidine 20 mg tablet 1 tab PO BEDTIME 06/13/21 08/22/21 06/11/21 History meloxicam 15 mg tablet 1 tab PO DAILY 06/13/21 08/22/21 06/11/21 History trazodone 50 mg tablet 1 tab PO BEDTIME PRN 06/13/21 08/22/21 Unknown History albuterol sulfate 90 mcg/actuation 2 puff PO Q4-6H PRN 06/24/21 08/22/21 Unknown History aerosol inhaler (Ventolin HFA) insulin glargine 100 unit/mL (3 20 unit SUBCUT DAILY 06/24/21 08/22/21 Unknown History mL) subcutaneous pen (Lantus Solostar U-100 Insulin) Exam Exam Date and Time: September 05, 2021 0854 Pertinent Lab Results Pertinent Lab Results: Laboratory Tests 06/14/21 06/14/21 05:48 05:48 WBC 8.1 Hgb 13.5 L Hct 41.2 L Plt Count 271 Sodium 137 Potassium 4.7 Chloride 103 Carbon Dioxide 27 BUN 10 Creatinine 1.24 Narrative Narrative: EKG 06/2021 Vent. Rate : 073 BPM ? ? Atrial Rate : 073 BPM ?? P-R Int : 138 ms? QRS Dur : 076 ms ? ? QT Int : 376 ms ? ? ? P-R-T Axes : 001 015 030 degrees ?? QTc Int : 414 ms ? Normal sinus rhythm Normal ECG ? No significant changes seen Brain mri 06/2021: IMPRESSION: No acute intracranial abnormality. Chronic encephalomalacic and gliotic changes seen in the left frontal lobe subjacent to craniotomy. Chronic infarct within the left inferior cerebellum and chronic lacunar infarcts in the right cerebellum. Cta 06/2021: IMPRESSION: 1. No acute vascular abnormalities are identified head and neck. Specifically, no evidence of arterial occlusion, stenoses, or aneurysm. 2. Chronic multifocal encephalomalacia, most notably in the left frontal lobe underlying the left frontal craniotomy. No acute intracranial findings. Assessment and Plan Assessment Anesthesia Assessment: Chart Reviewed Final Anesthetic Review Family History of Problems with Anesthesia: No History of Problems with Anesthesia: No Documented by User: Phoebe Lira MD 09/06/21 12:53 [facility] Past Medical History Medical History BERNARD positive BPH (benign prostatic hyperplasia) Brain tumor Calcaneal spur, right COPD (chronic obstructive pulmonary disease) Diabetes mellitus with hyperglycemia Erectile dysfunction Essential hypertension GERD (gastroesophageal reflux disease) Grand mal seizure disorder History of carpal tunnel syndrome Hypercholesterolemia Inguinal hernia, bilateral Insomnia Lipoma of abdominal wall Migraine Obesity (BMI 30-39.9) Obstructive sleep apnea Osteoarthritis Pulmonary nodule RLS (restless legs syndrome) Stroke Tennis elbow Vitamin B12 deficiency Vitamin D deficiency Family History Family History Father Diabetes Throat cancer Heart disease Mother Ovarian cancer Surgical History Surgical History History of diverticulosis History of elbow surgery History of partial gastrectomy History of right inguinal hernia repair Hx of brain surgery Hx of carpal tunnel repair Hx of colonoscopy Hx of foot surgery Hx of prostate biopsy Social History Social History Household Members: Spouse Housing: Apartment Are you a primary field care manager to a significant other at home: No Do you presently have visiting nurse or other home services: Yes ([facility]) Alcohol intake: never Patient Tobacco Use Status: Never used Tobacco e-Cigarette/Vaping Use: Never Used Second Hand Smoke Exposure: No Use of substances other than those prescribed or required for medical reasons: No Are you DNR?: No Advance Directives: No Advance Directives Information Provided: Yes service: No Current occupational status: retired Meds Allergies Allergy/AdvReac Type Severity Reaction Status Date / Time aspirin [ASPIRIN] Allergy Intermediate RASH WITH Verified 08/22/21 11:50 HIGH DOSES Penicillins Allergy Mild HIVES Verified 08/22/21 11:50 phenytoin [From Dilantin] Allergy Mild BURNING Verified 08/22/21 11:50 SENSATION IN BODY butalbital [BUTALBITAL] Allergy Unknown HIVES Verified 08/22/21 11:50 codeine [CODEINE] Allergy Unknown NAUSEA & Verified 08/22/21 11:50 VOMITING hydromorphone [From DILAUDID] Allergy Unknown UNKNOWN Verified 08/22/21 11:50 oxycodone [From PERCOCET] Allergy Unknown UNKNOWN Verified 08/22/21 11:50 thimerosal [THIMEROSAL] Allergy Unknown UNKNOWN Verified 08/22/21 11:50 doxycycline AdvReac Intermediate penile Verified 08/22/21 11:50 rash? Charlotte Allergy Unknown Unknown Uncoded 08/14/21 14:09 MOTRIN Allergy Unknown hives Uncoded 08/14/21 14:09 Home Medications Medication Instructions Recorded Confirmed Last Taken Type famotidine 20 mg tablet 1 tab PO BEDTIME 06/13/21 08/22/21 06/11/21 History meloxicam 15 mg tablet 1 tab PO DAILY 06/13/21 08/22/21 06/11/21 History trazodone 50 mg tablet 1 tab PO BEDTIME PRN 06/13/21 08/22/21 Unknown History albuterol sulfate 90 mcg/actuation 2 puff PO Q4-6H PRN 06/24/21 08/22/21 Unknown History aerosol inhaler (Ventolin HFA) insulin glargine 100 unit/mL (3 20 unit SUBCUT DAILY 06/24/21 08/22/21 Unknown History mL) subcutaneous pen (Lantus Solostar U-100 Insulin) Exam Airway Mallampati Class: II TM Dist: >3cm Neck ROM: Full Heart: rrr Lungs: cta Assessment and Plan Assessment Anesthesia Assessment: Anesthesia Plan Discussed and Chart Reviewed Final Anesthetic Review NPO: Yes ASA Class: III Final Preanesthetic Review: No Changes in Pt Med Stat, Meds/Allgs Chart Reviewed and Consent Obtained/Reviewed Patient Risk: Intermediate Procedure Risk: Intermediate Anesthetic Plan Anesthetic Plan: GA Disposition: Standard PACU
[2021-09-06] VITALS (7 sets, daily range): BP systolic 106–133; BP diastolic 66–79; PULSE 72–89; RESP 16–18; TEMP 36.7–37.1; O2SAT 92–100; BMI 30.9
[2021-09-06 12:18] LABS: Glucose, Whole Blood 238 mg/dL (60-115)
[2021-09-06] MEDS: Lactated Ringers 1,000 ML 100 ML IVCONT (12:23)
--- NOTE | 2021-09-06 12:39 | MHC.SHP ---
Pre-Procedural Eval Section A Date of Service: 09/06/21 Section B Chief Complaint: unilateral inguinal hernia w/o obstruction, Details of Present Illness: He has reducible hernia on the right and the lipomatous mass the right lower quadrant on the abdominal wall. He describes pain on the area Relevant Family History (Specify if Yes): No Relevant Social History: None Present Medications: see Short Stay Collaborative assessment Medical History: No relevant PMH (IBS, chronic back pain, history of depression, history of CVA, GERD, hypertension, diabetes) History of Previous Operations: No relevant previous surgery Allergies: Allergies Allergy/AdvReac Type Severity Reaction Status Date / Time aspirin [ASPIRIN] Allergy Intermediate RASH WITH Verified 08/22/21 11:50 HIGH DOSES Penicillins Allergy Mild HIVES Verified 08/22/21 11:50 phenytoin [From Dilantin] Allergy Mild BURNING Verified 08/22/21 11:50 SENSATION IN BODY butalbital [BUTALBITAL] Allergy Unknown HIVES Verified 08/22/21 11:50 codeine [CODEINE] Allergy Unknown NAUSEA & Verified 08/22/21 11:50 VOMITING hydromorphone [From DILAUDID] Allergy Unknown UNKNOWN Verified 08/22/21 11:50 oxycodone [From PERCOCET] Allergy Unknown UNKNOWN Verified 08/22/21 11:50 thimerosal [THIMEROSAL] Allergy Unknown UNKNOWN Verified 08/22/21 11:50 doxycycline AdvReac Intermediate penile Verified 08/22/21 11:50 rash? [place] Allergy Unknown Unknown Uncoded 08/14/21 14:09 MOTRIN Allergy Unknown hives Uncoded 08/14/21 14:09 Review of Systems Sugical H&P ROS: Negative: Constitution, Cardiovascular, Respiratory, Neurological, Psychiatric, Hem-Onc, Allergic/Immunologic, Gastrointestinal, Genitourinary, Musculoskeletal, Integumentary, Endocrine and Eyes/Ears/Nose/Throat Exam Surgical H&P Exam: Normal: HEENT, Normal: Heart, Normal: Lungs, Normal: Extremities, Normal: Skin and Normal: Neurological and Significant Findings: Abdomen (Reducible right inguinal hernia, small lipoma on the right lower quadrant abdominal wall) Plan Diagnosis/Plan: Unchanged I have reviewed the history and physical and performed a pertinent physical examination on my patient. No changes have occurred unless specified.
--- NOTE | 2021-09-06 14:03 | W.PM.OPN ---
Operative Note Operative Note Date of Service: 09/06/21 Narrative: Preop diagnosis: Recurrent right inguinal hernia, lipoma in the right abdominal wall Postop diagnosis: Recurrent right inguinal hernia, direct, and lipoma in the right abdominal wall, about 1 cm in size Procedure: Repair of recurrent right inguinal hernia with mesh, and excision of lipoma in the right abdominal wall Surgeon: Thomas Gaspar MD faculty i on call medical assistant: RODRIGO Jeffries The patient is a 71-year-old male who was referred to me because of a right inguinal hernia. He had a previous CAT scan showing a fat containing right inguinal hernia. He has a history of repair of this right inguinal hernia in a very distant past and he does not recall the details of this . He also had a small lipomatous mass on the abdominal wall the right lower quadrant measuring about 1 cm and he wanted this removed as well. He was aware of the risks, benefits, and alternatives of both procedures. He was brought to the operating room placed supine on the table under general anesthesia via laryngeal mask airway. The right inguinal area including the right abdominal wall was prepped draped in the usual sterile fashion. A surgical time-out was done. The patient received cefazolin 2 g IV preoperatively . I infiltrated the planned line of incision using lidocaine 1%. I made a short incision using blade 15 on an imaginary line from the anterior superior iliac spine to the pubic ramus. This was carried down with extra cautery to the full-thickness skin subcutaneous fat. There was note of a lot of fibrotic tissue in the subcutaneous fat making planes difficult to identify. We had to therefore proceeded slowly and was able to have L2 of the divided external oblique aponeurosis. I bluntly dissected the external oblique aponeurosis to identify the external ring. Once I was able to do this, I proceeded to then carefully identify the rest of the external ring. By doing so, I was able to divide the external oblique aponeurosis along its fibers to open up this external ring. I applied hemostats on the divided edges of each. I then bluntly dissected the underside of the aponeurosis to create a pocket for mesh. I was able to see the spermatic cord. I bluntly dissected this with the finger until was every to pass a Augusto drain around this. This Augusto drain was used for retraction. The vas deferens was seen along with its accompanying vessels and were protected during the dissection. Examination of the floor canal revealed a fat containing hernia. This was therefore a direct hernia. I carefully dissected this off of the rest of the cord and the surrounding floor until was able to clearly define the defect. There was a small defect through which this hernia was coming through. I was able to reduce this entire fat containing hernia through the defect. The defect on the floor measured 1 cm. I therefore used a small-sized plug to reinforce this. This plug was secured with Prolene 2 sutures to shelving edge of the inguinal and laterally in the internal oblique superiorly as well as medially using the inner leaves of the plug. I reinforced the floor of the canal with a keyhole mesh. The tails of the mesh were passed around the cord at the level of the internal ring and were secured together with Prolene 2 sutures. I reinforced this mesh with Prolene 2-0 sutures to the shelving edge of the inguinal ligament laterally and the internal oblique superiorly, medially as well as the pubic ramus inferomedially. I observed for hemostasis. I copies irrigated. Once hemostasis was confirmed, I proceeded to close the external oblique aponeurosis were running Dexon 2-0 stitch to re-create the external ring . The subcutaneous layer was reapposed with Dexon 3-0 interrupted sutures. Skin closure was achieved with Dexon 4-0 subcuticular running stitch. I then proceeded to do the excision of the lipoma. I infiltrated the planned incision on right lower quadrant using lidocaine 1%. I made the incision using a blade 15 and this carried down with electrocautery through the full-thickness of the skin. I bluntly dissected the subcutaneous fat until was able to visualize a lipoma. This lipoma was about 1 cm in size and I was able to excise this with electrocautery. This was sent as specimen. I closed this incision with a running Dexon 3 4-0 subcuticular stitch as well. I infiltrated both incisions with Marcaine 0.5% for postop analgesia. Steri-Strips and dressings were applied. The procedure was then completed. The patient tolerated procedure well. There were no complication noted. Initial and final counts of sponges and instruments were correct. Estimated blood loss was about 25 cc . The patient was extubated without difficulty and transferred to the recovery room with stable vital signs.
[2021-09-06] MEDS: fentaNYL citrate/PF 100 MCG/2 ML VIAL 50 MCG IVPUSH (14:26)
[2021-09-06] MEDS: oxyCODONE HCl Immed Release 5 MG TABLET PO (15:00)
[2021-09-06 15:14] LABS: Glucose, Whole Blood 242 mg/dL (60-115)
== END 2021-09-06 15:30 | disposition home or self-care (01) ==
PROVIDERS: PCP Internal Medicine; Visit Provider Surgery
PROC: (CPT 49520; principal; 2021-09-06 13:50)
DX: K40.91 Unilateral inguinal hernia, without obstruction or gangrene, recurrent (principal); D17.5 Benign lipomatous neoplasm of intra-abdominal organs
CPT/HCPCS: 49520; 22902; 82947; 88304; C1781; J0690; J2250; J2405; J3010

== ENCOUNTER → 2021-09-11 15:20 | Outpatient (BNVA) | payer MEDICARE, SELFPAY | PROVIDERS: PCP Internal Medicine; Referring Provider Internal Medicine; Visit Provider Surgery | DX: Z48.815 Encounter for surgical aftercare following surgery on the digestive system (principal) | CPT/HCPCS: 99212 ==

== ENCOUNTER → 2021-09-19 08:49 | Outpatient (BNVA) | payer MEDICARE, SELFPAY | PROVIDERS: PCP Internal Medicine; Referring Provider Internal Medicine; Visit Provider Surgery | DX: Z48.815 Encounter for surgical aftercare following surgery on the digestive system (principal); Z87.19 Personal history of other diseases of the digestive system; Z87.2 Personal history of diseases of the skin and subcutaneous tissue | CPT/HCPCS: 99212 ==

== ENCOUNTER 2021-10-08 09:06 | Emergency (ER) | payer MEDICARE, SELFPAY ==
--- NOTE | ~2021-10-08 | CT_ITS ---
EXAMINATION: CT ABDOMEN AND PELVIS WITH CONTRAST CLINICAL INFORMATION: Right lower quadrant pain. Fall. History of hernia repair 09/06/2021 COMPARISON: Previous CT of the abdomen and pelvis April 2021 TECHNIQUE: Multidetector volumetric images were obtained from the superior aspect of the liver through the pubic symphysis following administration 85 mL of Omnipaque 350 intravenous contrast. Sagittal and coronal reformatted images were obtained on the technologist's workstation. Oral contrast: Yes This CT examination was performed using dose optimization techniques as appropriate, variously including the following: *Automated exposure control *Adjustment of mA and/or kV according to patient size (this includes techniques or standardized protocols for targeted exams where dose is matched to indication/reason for exam; i.e. extremities or head) *Use of iterative reconstruction technique DLP: 652 mGy-cm FINDINGS: LUNG BASES: The visualized lung bases are unremarkable. LIVER, GALLBLADDER, AND BILIARY TREE: The liver is normal in size, shape, and attenuation. No focal hepatic lesion or biliary ductal dilatation is present. The gallbladder is unremarkable with no evidence of radiopaque gallstones, gallbladder wall thickening, or obvious pericholecystic inflammatory changes. PANCREAS: There is fatty infiltration of the pancreas. The pancreas is otherwise unremarkable. SPLEEN: Unremarkable. ADRENAL GLANDS: Unremarkable. KIDNEYS AND URETERS: The kidneys are normal in size, shape, and attenuation. No hydronephrosis, hydroureter, or calculi seen. No perinephric stranding. BLADDER: Unremarkable. GASTROINTESTINAL TRACT: There is postsurgical change to the stomach following distal gastrectomy and gastric bypass. Small and large bowel is unremarkable. The appendix is unremarkable. ABDOMINAL WALL: There is soft tissue thickening in the right inguinal region and stranding of the overlying fat likely representing postsurgical change following hernia repair. There is a small umbilical hernia containing fat. LYMPH NODES: Normal. VASCULAR: Unremarkable. PELVIC VISCERA: Unremarkable. OSSEOUS STRUCTURES: There are degenerative changes of the spine and hips. No fracture is seen. CT/CT abdomen pelvis w con IMPRESSION: No acute findings. Postsurgical change in the right inguinal region. No fluid collection or recurrent hernia seen. Stable postsurgical changes to the stomach. Fatty replacement of the pancreas. Fleischner guidelines were followed.
[2021-10-08 09:14] VITALS: BP 142/75; PULSE 81; RESP 18; TEMP 36.6; O2SAT 100; BMI 30.9
--- NOTE | 2021-10-08 09:29 | ED_ITS ---
HPI - Abdominal Pain General Chief Complaint: Abdominal Pain Stated Complaint: lower abd pain after surgery Time Seen by Provider: 10/08/21 09:12 Source: patient, family and old records reviewed Mode of arrival: ambulatory Limitations: no limitations History of Present Illness HPI narrative: 71 yo male with DM, CVA, bronchitis s/p R hernia repair 09/06 slipped and fell 3 days ago no head strike landed on back felt a pull in his RLQ and since then pain at the site of his hernia repair and when he urinates it hurts but no issues with BMs MD elicited complaint: abdominal pain Pertinent past history: other (hernia repair 09/06) Onset (ago): day(s) (3) Pain Consistency: constant Location: RLQ Severity: moderate Quality: aching Radiation: none Migration to: no migration Exacerbating factors: movement and other (urination) Relieving factors: nothing Context: other (recent fall ) Associated symptoms: dysuria Related Data Home Medications Medication Instructions Recorded Confirmed famotidine 20 mg tablet 1 tab PO BEDTIME 06/13/21 08/22/21 meloxicam 15 mg tablet 1 tab PO DAILY 06/13/21 08/22/21 trazodone 50 mg tablet 1 tab PO BEDTIME PRN 06/13/21 08/22/21 albuterol sulfate 90 mcg/actuation 2 puff PO Q4-6H PRN 06/24/21 08/22/21 aerosol inhaler (Ventolin HFA) insulin glargine 100 unit/mL (3 20 unit SUBCUT DAILY 06/24/21 08/22/21 mL) subcutaneous pen (Lantus Solostar U-100 Insulin) Previous Rx's Medication Instructions Recorded diclofenac sodium 1 % topical gel 2 g TOPICAL QID #100 g 06/21/21 (Voltaren Arthritis Pain) dulaglutide 1.5 mg/0.5 mL 1.5 mg (0.5 mL) SUBCUT MO@0900 90 06/21/21 subcutaneous pen injector Days #6.5 ml (Trulicity) gabapentin 100 mg capsule 100 mg PO BID #60 cap 06/21/21 meclizine 25 mg tablet 25 mg PO TID PRN #60 tab 06/21/21 benzonatate 100 mg capsule 100 mg PO Q6H PRN #20 cap 07/09/21 dextromethorphan polistirex 30 10 ml PO Q12H PRN #89 ml 07/09/21 mg/5 mL oral susp ext.release 12hr (Robitussin ER) nebulizer accessories #1 ea 07/09/21 nebulizers (Compact Compressor #1 ea 07/09/21 Nebulizer) cholecalciferol (vitamin D3) 50 2,000 unit PO DAILY #30 cap 08/04/21 mcg (2,000 unit) capsule tramadol 50 mg tablet 50 mg PO Q6H PRN 30 Days #40 tab 08/22/21 triamcinolone acetonide 0.5 % 1 appl TOPICAL BID #15 g 08/22/21 topical cream lisinopril 2.5 mg tablet 2.5 mg PO DAILY 90 Days #90 tab 08/30/21 metformin 1,000 mg tablet 1,000 mg PO BID 90 Days #180 tab 08/30/21 sertraline 100 mg tablet 100 mg PO DAILY 90 Days #90 tab 08/30/21 oxycodone-acetaminophen 5 mg-325 1 tab PO Q4-6H PRN #30 tab 09/06/21 mg tablet (Percocet) oxycodone-acetaminophen 5 mg-325 1 tab PO Q4H PRN #20 tab 09/06/21 mg tablet (Percocet) oxycodone-acetaminophen 5 mg-325 1 tab PO Q4-6H PRN #20 tab 09/07/21 mg tablet (Percocet) amitriptyline 25 mg tablet 25 mg PO BEDTIME #90 tab 09/10/21 atorvastatin 40 mg tablet 40 mg PO BEDTIME #90 tab 09/16/21 aspirin 81 mg tablet,delayed 81 mg PO DAILY #90 tab 09/27/21 release morphine 15 mg immediate release 15 mg PO Q6H PRN 3 Days #12 tab 10/08/21 tablet Allergies Allergy/AdvReac Type Severity Reaction Status Date / Time aspirin [ASPIRIN] Allergy Intermediate RASH WITH Verified 10/08/21 09:14 HIGH DOSES Penicillins Allergy Mild HIVES Verified 10/08/21 09:14 phenytoin [From Dilantin] Allergy Mild BURNING Verified 10/08/21 09:14 SENSATION IN BODY butalbital [BUTALBITAL] Allergy Unknown HIVES Verified 10/08/21 09:14 codeine [CODEINE] Allergy Unknown NAUSEA & Verified 10/08/21 09:14 VOMITING hydromorphone [From DILAUDID] Allergy Unknown UNKNOWN Verified 10/08/21 09:14 oxycodone [From PERCOCET] Allergy Unknown UNKNOWN Verified 10/08/21 09:14 thimerosal [THIMEROSAL] Allergy Unknown UNKNOWN Verified 10/08/21 09:14 doxycycline AdvReac Intermediate penile Verified 10/08/21 09:14 rash? [place] Allergy Unknown Unknown Uncoded 08/14/21 14:09 MOTRIN Allergy Unknown hives Uncoded 08/14/21 14:09 Review of Systems Review of Systems Constitutional : No Weight loss, No Fever, No Chills ENT/Mouth : No sore throat, No Rhinorrhea Eyes: No Swelling, No Redness Cardiovascular : No Chest Pain, No SOB, NoEdema Respiratory : No Cough, No Sputum, No Wheezing Gastrointestinal : no Nausea, no Vomiting, no Diarrhea, positive abdominal Pain, No Hematochezia, No Melena Genitourinary : pos Dysuria, No Urinary Frequency, No Hematuria, No Urgency Musculoskeletal : No joint pain, No Myalgias, No Joint Swelling Skin : No Skin Lesions, No rash Neuro : No Weakness, No Numbness, No Dizziness, No Headache Psych : No Anxiety/Panic, No Depression Heme/Lymph: No Bruising, No Lymphadenopathy Endocrine : No Polyuria, No Polydipsia All other systems reviewed and are negative. [facility] Past Medical History Attestation statement: The following information was validated with the patient. Medical History BERNARD positive BPH (benign prostatic hyperplasia) Brain tumor Calcaneal spur, right COPD (chronic obstructive pulmonary disease) Diabetes mellitus with hyperglycemia Erectile dysfunction Essential hypertension GERD (gastroesophageal reflux disease) Grand mal seizure disorder History of carpal tunnel syndrome Hypercholesterolemia Inguinal hernia, bilateral Insomnia Lipoma of abdominal wall Migraine Obesity (BMI 30-39.9) Obstructive sleep apnea Osteoarthritis Pulmonary nodule RLS (restless legs syndrome) Stroke Tennis elbow Vitamin B12 deficiency Vitamin D deficiency Surgical History History of diverticulosis History of elbow surgery History of partial gastrectomy History of right inguinal hernia repair Hx of brain surgery Hx of carpal tunnel repair Hx of colonoscopy Hx of foot surgery Hx of prostate biopsy Family History Family History Father Diabetes Throat cancer Heart disease Mother Ovarian cancer Social History Social History Household Members: Spouse Housing: Apartment Are you a primary child care center assistant director to a significant other at home: No Do you presently have visiting nurse or other home services: Yes ([facility]) Alcohol intake: never Patient Tobacco Use Status: Never used Tobacco e-Cigarette/Vaping Use: Never Used Second Hand Smoke Exposure: No service: No Current occupational status: retired Physical Exam ED Vital Signs: Vital Signs - 24 hr 10/08/21 09:14 10/08/21 11:42 Temperature 97.8 F Pulse Rate 81 77 Respiratory Rate 18 16 Blood Pressure 142/75 H 136/71 Pulse Oximetry 100 98 BMI result Body Mass Index 30.9 Appearance: Alert. Oriented X3. No acute distress. Eyes: Pupils equal, round and reactive to light. ENT: Pharynx normal. Neck: Normal inspection. Neck supple. CVS: Normal heart rate and rhythm. Pulses normal. Respiratory: No respiratory distress. Breath sounds normal. Abdomen: Soft but moderate tenderness in RLQ incision is intact small swelling noted with slight bulge felt at incision with cough. Skin: Skin warm and dry. Normal skin color. Normal skin turgor. Extremities: No lower extremity edema. Neuro: Oriented X 3. No motor deficit. No sensory deficit. Course Course Course Narrative: negative workup at this time no signs of herniation, UA clear MDM - Abdominal Pain MDM Narrative Medical decision making narrative: 71 yo male with hx of DM, HLD, bronchitis, KELLY, CVA not on oral blood thinners here with slip and fall 3 days ago no headstrike no LOC but since then has pain at R hernia incision site with pain urinating. No issues with BMs. At this time will obtain labs, treat pain, CT scan to evaluate for dehiscence or new hernia. Dispo per results and findings. Lab Data Result diagrams: 10/08/21 09:42 10/08/21 09:42 Labs: Lab Results 10/08/21 10/08/21 10/08/21 Range/Units 09:42 09:42 09:42 WBC 7.2 (4.8-10.8) X10*3/uL RBC 4.60 (4.60-5.80) X10*6/uL Hgb 13.8 L (14.0-18.0) g/dl Hct 41.3 L (42.0-52.0) % MCV 89.8 (80.0-98.0) fL MCH 30.0 (27.0-33.0) pg MCHC 33.4 (31.0-36.0) g/dl RDW 12.5 (11.0-16.0) % Plt Count 249 (160-400) X10*3/uL MPV 9.1 L (9.4-12.4) fL Immature Gran % (Auto) 0.3 (0.0-0.4) % Neut % (Auto) 56.9 (45-73) % Lymph % (Auto) 28.8 (20-40) % [place] % (Auto) 7.0 (2-11) % Eos % (Auto) 6.7 H (0-4) % Baso % (Auto) 0.3 (0-2) % Lymph # (Auto) 2.1 (1.2-4.9) X10*3/uL [place] # (Auto) 0.5 (0.1-1.2) X10*3/uL Eos # (Auto) 0.5 H (0.0-0.4) X10*3/uL Baso # (Auto) 0.0 (0.0-0.2) X10*3/uL Abs Immat Gran (auto) 0.02 (0.00-0.03) X10*3/uL Absolute Neuts (auto) 4.1 (2.0-8.3) x10*3/uL Absolute Nucleated RBC 0.000 (0.0-0.012) X10*3/uL Nucleated RBC % (auto) 0.0 (0.0-0.2) /100WBC Sodium 134 L (135-145) mmol/L Potassium 4.5 (3.3-5.1) mmol/L Chloride 100 (96-108) mmol/L Carbon Dioxide 27 (22-29) mmol/L Anion Gap 12 (12-20) BUN 10 (9-16) mg/dL Creatinine 1.12 (0.5-1.4) mg/dL Estim Creat Clear Calc 60.0 Estimated GFR > 60 Random Glucose 284 H D (60-115) mg/dL Calcium 9.3 (8.4-10.2) mg/dL Urine Color STRAW Urine Appearance CLEAR Urine pH 5.5 (5.0-8.0) Ur Specific [place] <= 1.005 (1.005-1.025) Urine Protein NEG (NEG-TRACE) MG/DL Urine Glucose (UA) >=1000 H (NEG) MG/DL Urine Ketones NEG (NEG) MG/DL Urine Blood NEG (NEG) Urine Nitrite NEG (NEG) Ur Leukocyte Esterase NEG (NEG) Urine RBC 0 (0) /HPF Urine WBC 0 (0-4) /HPF Ur Squamous Epith Cells TRACE /LPF Urine Bacteria NONE /LPF Discharge Plan Discharge Clinical Impression: Groin pain Qualifiers: Laterality: right Qualified Code(s): R10.31 - Right lower quadrant pain Patient Disposition: Home, Self-Care Instructions: Groin Pain (ED) Additional Instructions: return to ED for any worsening symptoms or concerns CT/CT abdomen pelvis w con IMPRESSION: No acute findings. Postsurgical change in the right inguinal region. No fluid collection or recurrent hernia seen. Stable postsurgical changes to the stomach. Fatty replacement of the pancreas. Prescriptions: New morphine 15 mg tablet 15 mg PO Q6H PRN (Reason: pain) 3 Days Qty: 12 0RF No Action Trulicity 1.5 mg/0.5 mL pen injector 1.5 mg subcut MO@0900 90 Days Qty: 6.5 3RF meclizine 25 mg tablet 25 mg PO TID PRN (Reason: dizziness) Qty: 60 11RF cholecalciferol (vitamin D3) 50 mcg (2,000 unit) capsule 2,000 unit PO DAILY Qty: 30 2RF lisinopril 2.5 mg tablet 2.5 mg PO DAILY 90 Days Qty: 90 1RF sertraline 100 mg tablet 100 mg PO DAILY 90 Days Qty: 90 1RF metformin 1,000 mg tablet 1,000 mg PO BID 90 Days Qty: 180 2RF amitriptyline 25 mg tablet 25 mg PO BEDTIME Qty: 90 1RF atorvastatin 40 mg tablet 40 mg PO BEDTIME Qty: 90 3RF aspirin 81 mg tablet,delayed release (DR/EC) 81 mg PO DAILY Qty: 90 1RF Lantus Solostar U-100 Insulin 100 unit/mL (3 mL) insulin pen 20 unit subcut DAILY 0RF albuterol sulfate [Ventolin HFA] 90 mcg/actuation HFA aerosol inhaler 2 puff PO Q4-6H PRN (Reason: Wheezing) 0RF trazodone 50 mg tablet 1 tab PO BEDTIME PRN (Reason: insomnia) 0RF meloxicam 15 mg tablet 1 tab PO DAILY 0RF famotidine 20 mg tablet 1 tab PO BEDTIME 0RF oxycodone-acetaminophen [Percocet] 5-325 mg tablet 1 tab PO Q4-6H PRN (Reason: pain, severe) Qty: 30 0RF oxycodone-acetaminophen [Percocet] 5-325 mg tablet 1 tab PO Q4H PRN (Reason: pain) Qty: 20 0RF oxycodone-acetaminophen [Percocet] 5-325 mg tablet 1 tab PO Q4-6H PRN (Reason: pain) Qty: 20 0RF tramadol 50 mg tablet 50 mg PO Q6H PRN (Reason: pain) 30 Days Qty: 40 0RF triamcinolone acetonide 0.5 % cream 1 appl topical BID Qty: 15 0RF gabapentin 100 mg capsule 100 mg PO BID Qty: 60 0RF diclofenac sodium [Voltaren Arthritis Pain] 1 % gel 2 g topical QID Qty: 100 0RF Rx Instructions: apply to single elbow, wrist or hand; for hand includes palm/fingers/back of hand (DME) Compact Compressor Nebulizer Misc See Rx Instructions .Route Qty: 1 0RF Rx Instructions: As directed (DME) nebulizer accessories Kit See Rx Instructions .Route Qty: 1 0RF Rx Instructions: As directed benzonatate 100 mg capsule 100 mg PO Q6H PRN (Reason: cough) Qty: 20 0RF dextromethorphan polistirex [Robitussin ER] 30 mg/5 mL suspension,extended rel 12 hr 10 ml PO Q12H PRN (Reason: cough) Qty: 89 0RF Referrals: Thomas Gaspar MD [Physician] - 2 days (if not better) Stand Alone Forms: Work/School Release Interventions: ED Discharge Assessment Last Done: 10/08/21 12:05 Discharge Date/Time: 10/08/21 12:15 Print Language: [place] Islander
[2021-10-08] MEDS: Morphine Sulfate 4 MG/ML CARTRIDGE IVPUSH (09:48)
[2021-10-08] MEDS: 0.9 % Sodium Chloride 1,000 ML 999 ML IV (09:48)
[2021-10-08] MEDS: ondansetron HCL 4 MG/2 ML VIAL IVPUSH (09:48)
[2021-10-08 09:50] LABS: MANUAL DIFF FLAG NO
[2021-10-08 09:52] LABS: Appearance Urine CLEAR; Color Urine STRAW; Glucose Urine UA >=1000 MG/DL (NEG); Leukocyte Esterase Urine NEG (NEG); Nitrite Urine NEG (NEG); PH 5.5 (5.0-8.0); Specific Gravity - Urine <= 1.005 (1.005-1.025); Urine Blood NEG (NEG); Urine Ketones NEG (NEG); Urine Protein NEG (NEG-TRACE)
[2021-10-08 09:56] LABS: Basophils Percent Auto 0.3 % (0-2); Eosinophils Absolute Auto 0.5 X10*3/uL (0.0-0.4); Eosinophils Percent Auto 6.7 % (0-4); Hematocrit 41.3 % (42.0-52.0); Hemoglobin 13.8 g/dl (14.0-18.0); Imm Gran Abs Auto 0.02 X10*3/uL (0.00-0.03); Imm Gran Pct Auto 0.3 % (0.0-0.4); Lymphocytes Absolute Auto 2.1 X10*3/uL (1.2-4.9); Lymphocytes Percent Auto 28.8 % (20-40); Mean Corpuscular HGB Conc 33.4 g/dl (31.0-36.0); Mean Corpuscular Volume 89.8 fL (80.0-98.0); Mean Platelet Volume 9.1 fL (9.4-12.4); Monocytes Absolute Auto 0.5 X10*3/uL (0.1-1.2); Neutrophils Absolute Auto 4.1 x10*3/uL (2.0-8.3); Neutrophils Percent Auto 56.9 % (45-73); Platelet Count 249 X10*3/uL (160-400); Red Cell Distribution Width 12.5 % (11.0-16.0); White Blood Count 7.2 X10*3/uL (4.8-10.8)
[2021-10-08 10:01] LABS: RBC Urine 0 /HPF (0); Squamous Epithelial Cell Urine TRACE /LPF; WBC Urine 0 /HPF (0-4)
[2021-10-08 10:07] LABS: Anion Gap 12 (12-20); Blood Urea Nitrogen 10 mg/dL (9-16); Calcium 9.3 mg/dL (8.4-10.2); Carbon Dioxide 27 mmol/L (22-29); Chloride 100 mmol/L (96-108); Estimated Glomerular Filt Rate > 60; Glucose Random 284 mg/dL (60-115); Potassium 4.5 mmol/L (3.3-5.1); Sodium 134 mmol/L (135-145)
[2021-10-08] MEDS: iohexoL 350 MG/ML 100 ML INFUS..BTL 85 ML IV (10:43)
[2021-10-08 11:42] VITALS: BP 136/71; PULSE 77; RESP 16; O2SAT 98
== END 2021-10-08 12:15 | disposition home or self-care (01) ==
PROVIDERS: Emergency Provider Emergency Medicine; PCP Internal Medicine
DX: R10.31 Right lower quadrant pain (principal); Z79.899 Other long term (current) drug therapy; Z79.82 Long term (current) use of aspirin
CPT/HCPCS: 36415; 74177; 80048; 81001; 85025; 96361; 96374; 96375; 99284; J2270; J2405; Q9967

== ENCOUNTER → 2021-10-09 14:58 | Outpatient (BNVA) | payer MEDICARE, SELFPAY | PROVIDERS: PCP Internal Medicine; Visit Provider Surgery | DX: N50.811 Right testicular pain (principal); N50.812 Left testicular pain; R30.0 Dysuria | CPT/HCPCS: 99212 ==

== ENCOUNTER 2021-10-10 12:30 | Outpatient (REF) | payer MEDICARE, SELFPAY ==
[2021-10-10 13:02] LABS: Hematocrit 37.2 % (42.0-52.0); Hemoglobin 12.3 g/dl (14.0-18.0); Mean Corpuscular HGB Conc 33.1 g/dl (31.0-36.0); Mean Corpuscular Hemoglobin 29.9 pg (27.0-33.0); Mean Corpuscular Volume 90.3 fL (80.0-98.0); Mean Platelet Volume 9.2 fL (9.4-12.4); Platelet Count 230 X10*3/uL (160-400); Red Blood Count 4.12 X10*6/uL (4.60-5.80); Red Cell Distribution Width 12.6 % (11.0-16.0); White Blood Count 7.8 X10*3/uL (4.8-10.8)
[2021-10-10 13:09] LABS: INTERNATIONAL NORM RATIO 1.1 (0.9-1.1)
[2021-10-10 14:19] LABS: Appearance Urine CLEAR; Color Urine STRAW; Glucose Urine UA >=1000 MG/DL (NEG); Leukocyte Esterase Urine NEG (NEG); Nitrite Urine NEG (NEG); PH 5.5 (5.0-8.0); Urine Blood NEG (NEG); Urine Ketones NEG (NEG); Urine Protein NEG (NEG-TRACE)
[2021-10-10 14:42] LABS: RBC Urine 0-2 /HPF (0); Squamous Epithelial Cell Urine TRACE /LPF; WBC Urine 0 /HPF (0-4)
== END 2021-10-10 12:31 | disposition home or self-care (01) ==
LOC: HO.LAB 12:30
PROVIDERS: Nurse Practitioner Family; PCP Internal Medicine; Visit Provider Surgery
DX: Z01.818 Encounter for other preprocedural examination (principal)
CPT/HCPCS: 36415; 81001; 85027; 85610

== ENCOUNTER 2021-11-06 13:59 | Outpatient (REF) | payer MEDICARE, SELFPAY | END 2021-11-06 14:00 | disposition home or self-care (01) | LOC: HO.US 13:59 | PROVIDERS: Visit Provider Surgery | DX: Z13.89 Encounter for screening for other disorder (principal) ==

== ENCOUNTER 2022-03-31 10:01 | Outpatient (REF) | payer MEDICARE, MEDICAID, SELFPAY ==
--- NOTE | ~2022-03-31 | FL_ITS ---
EXAMINATION: FL BARIUM SWALLOW/UPPER GI CLINICAL INFORMATION: Dysphagia. COMPARISON: None. TECHNIQUE: Routine upper GI air-contrast study in upright and lying position was performed. A barium swallow with barium-coated turkey was done in upright view. FINDINGS: Following oral administration of thick barium and effervescent granules, there is normal propagation of bolus from the oral cavity through the pharynx and esophagus and into the stomach without obstruction or narrowing. A prominent cricoesophageal sphincter is noted indenting the posterior cervical esophagus but no obstruction seen. On placing patient supine and prone lying, there are postsurgical changes at the GE junction, probably from hiatal hernia repair. The stomach is small caliber. Also visualized is a Lilo-en-Y gastric bypass surgery with a blind-ending afferent loop. The gastrojejunal anastomosis is widely patent and open. The mucosal pattern of the stomach, duodenal bulb and sweep is normal. On oral administration of barium-coated turkey, there is normal propagation of bolus from the oral cavity through the pharynx and esophagus and into the stomach. The mucosal pattern of the stomach and the duodenum is normal. There is mild gastroesophageal reflux. FL/FL upper GI w Ba Swallow IMPRESSION: Gastric bypass/ Lilo en surgery with a blind-ending loop appearing unremarkable. There is a widely patent gastrojejunal anastomosis. There is mild gastroesophageal reflux. Also visualized are postsurgical changes of the GE junction, likely from hiatal hernia repair. Esophagus is unremarkable except for slightly prominent cricoesophageal sphincter. Fluoroscopy Time: 2.1 minutes. Images: 56. Dose Area Product: 23.0763 Gy-cm2.
== END 2022-03-31 10:02 | disposition home or self-care (01) ==
LOC: HO.XRAY 10:01
PROVIDERS: PCP Internal Medicine; Visit Provider Internal Medicine
DX: R13.10 Dysphagia, unspecified (principal)
CPT/HCPCS: 74240

== ENCOUNTER 2022-04-29 09:15 | Emergency (ER) | payer MEDICARE, MEDICAID, SELFPAY ==
--- NOTE | ~2022-04-29 | CT_ITS ---
EXAMINATION: CT ABDOMEN AND PELVIS WITHOUT CONTRAST CLINICAL INFORMATION: Back and pelvic pain COMPARISON: CT abdomen pelvis 10/08/2021 TECHNIQUE: Multidetector volumetric imaging was performed from the superior aspect of the liver through the pubic symphysis. Sagittal and coronal reformatted images were obtained on the technologist's workstation. This CT examination was performed using dose optimization techniques as appropriate, variously including the following: *Automated exposure control *Adjustment of mA and/or kV according to patient size (this includes techniques or standardized protocols for targeted exams where dose is matched to indication/reason for exam; i.e. extremities or head) *Use of iterative reconstruction technique DLP: 641 mGy-cm FINDINGS: LUNG BASES: The visualized lung bases are unremarkable. Some minimal basilar scarring is present. LIVER, GALLBLADDER, AND BILIARY TREE: The liver is normal in size, shape, and attenuation. No focal hepatic lesion or biliary ductal dilatation is present. The gallbladder is unremarkable with no evidence of radiopaque gallstones, gallbladder wall thickening, or obvious pericholecystic inflammatory changes. PANCREAS: Fatty infiltration of the pancreas again seen. SPLEEN: Unremarkable. ADRENAL GLANDS: Unremarkable. KIDNEYS AND URETERS: The kidneys are normal in size, shape, and attenuation. No hydronephrosis, hydroureter, or calculi seen. No perinephric stranding. BLADDER: Unremarkable. GASTROINTESTINAL TRACT: Gastrojejunostomy is present. The small and large bowel are unremarkable. The appendix is unremarkable. ABDOMINAL WALL: No significant hernia is appreciated. Soft tissue thickening is present in the right groin which appears less marked when compared to 10/08/2021 LYMPH NODES: No retroperitoneal lymphadenopathy. VASCULAR: Unremarkable. PELVIC VISCERA: Unremarkable. OSSEOUS STRUCTURES: Some minimal degenerative changes are present in the thoracolumbar spine with predominantly endplate changes. Disc heights and intervertebral disc spaces are well preserved. CT/CT abdomen pelvis wo IV con IMPRESSION: No significant abnormality is detected. Incidental findings as described above. Fleischner guidelines were followed.
[2022-04-29 09:17] VITALS: BP 136/82; PULSE 85; RESP 18; TEMP 36.6; O2SAT 98; BMI 29.9
--- NOTE | 2022-04-29 09:20 | ECG_ITS ---
Test Reason : syncope Blood Pressure : / mmHG Vent. Rate : 068 BPM Atrial Rate : 068 BPM P-R Int : 146 ms QRS Dur : 076 ms QT Int : 380 ms P-R-T Axes : 013 015 026 degrees QTc Int : 404 ms Normal sinus rhythm Normal ECG When compared with ECG of 12-JUN-2021 18:37, No significant change was found Referred By: Generic ED Physician Electronically Signed By:TERI HARTMANN
[2022-04-29 09:52] LABS: MANUAL DIFF FLAG NO
[2022-04-29 09:53] LABS: Basophils Percent Auto 0.2 % (0-2); Eosinophils Absolute Auto 0.2 X10*3/uL (0.0-0.4); Eosinophils Percent Auto 2.5 % (0-4); Hemoglobin 13.1 g/dl (14.0-18.0); Imm Gran Abs Auto 0.03 X10*3/uL (0.00-0.03); Imm Gran Pct Auto 0.3 % (0.0-0.4); Lymphocytes Absolute Auto 1.3 X10*3/uL (1.2-4.9); Lymphocytes Percent Auto 13.7 % (20-40); Mean Corpuscular HGB Conc 32.8 g/dl (31.0-36.0); Mean Corpuscular Hemoglobin 28.2 pg (27.0-33.0); Mean Corpuscular Volume 86.2 fL (80.0-98.0); Monocytes Absolute Auto 0.5 X10*3/uL (0.1-1.2); Monocytes Percent Auto 5.5 % (2-11); Neutrophils Absolute Auto 7.6 x10*3/uL (2.0-8.3); Neutrophils Percent Auto 77.8 % (45-73); Platelet Count 271 X10*3/uL (160-400); Red Blood Count 4.64 X10*6/uL (4.60-5.80); Red Cell Distribution Width 13.6 % (11.0-16.0); White Blood Count 9.7 X10*3/uL (4.8-10.8)
[2022-04-29 09:54] LABS: Appearance Urine Clear; Color Urine Yellow; Glucose Urine UA Negative (Negative); Leukocyte Esterase Urine Negative (Negative); Nitrite Urine Negative (Negative); PH 6.5 (5.0-9.0); Specific Gravity - Urine <= 1.005 (1.005-1.025); Urine Blood Negative (Negative); Urine Ketones Negative (Negative); Urine Protein Negative (Neg-Trace)
[2022-04-29 10:10] LABS: Alanine Aminotransferase 16 U/L (0-40); Albumin Level 4.1 g/dL (3.5-5.0); Alkaline Phosphatase 118 U/L (39-117); Anion Gap 15 (12-20); Aspartate Amino Transferase 20 U/L (5-37); Bilirubin Direct 0.3 mg/dL (0.0-0.5); Bilirubin Total 0.7 mg/dL (0.0-1.0); Blood Urea Nitrogen 9 mg/dL (9-16); Carbon Dioxide 26 mmol/L (22-29); Chloride 100 mmol/L (96-108); Creatinine Clr Calc Pharmacy 57.8; Estimated Glomerular Filt Rate > 60; Glucose Random 217 mg/dL (60-115); Lipase 11 U/L (8-78); Potassium 4.8 mmol/L (3.3-5.1); Sodium 136 mmol/L (135-145); Total Protein 7.1 g/dL (6.5-8.0)
[2022-04-29 10:16] LABS: Troponin-I High Sensitivity < 3.5 ng/L (<3.5-35.0)
--- NOTE | 2022-04-29 12:03 | ED_ITS ---
HPI - Syncope General Chief Complaint: Syncope Stated Complaint: passed out twice today at 5am Time Seen by Provider: 04/29/22 10:14 Source: patient Mode of arrival: ambulatory Limitations: language barrier History of Present Illness HPI narrative: History obtained by daughter. Patient with low abdominal pain that radiates into the groin, he passed out twice. Patient tried to urinate twice and then passed out twice. He is having abdominal distention. When he passed out he did not hit his head. Denies dysuria, he is not emptying completely. Patient passed out, family got him up and he passed out again. MD complaint: loss of consciousness Onset (ago): hour(s) Prodromal symptoms: vision changes Witnessed: Yes - by Bystander Context: after urination Injuries sustained associated with event: none Current symptoms: abdominal pain and other (back pain) Treatments prior to arrival: none Related Data Home Medications Medication Instructions Recorded Confirmed trazodone 50 mg tablet 1 tab PO BEDTIME PRN insomnia 06/13/21 02/12/22 albuterol sulfate 90 mcg/actuation 2 puff PO Q4-6H PRN Wheezing 06/24/21 02/12/22 aerosol inhaler (Ventolin HFA) Previous Rx's Medication Instructions Recorded diclofenac sodium 1 % topical gel 2 g topical QID #100 grams 06/21/21 (Voltaren Arthritis Pain) gabapentin 100 mg capsule 100 mg PO BID #60 caps 06/21/21 meclizine 25 mg tablet 25 mg PO TID PRN dizziness #60 tabs 06/21/21 nebulizer accessories #1 ea 07/09/21 nebulizers (Compact Compressor #1 ea 07/09/21 Nebulizer) triamcinolone acetonide 0.5 % 1 appl topical BID #15 grams 08/22/21 topical cream metformin 1,000 mg tablet 1,000 mg PO BID 90 days #180 tabs 08/30/21 atorvastatin 40 mg tablet 40 mg PO BEDTIME #90 tabs 09/16/21 amitriptyline 25 mg tablet 25 mg PO BEDTIME #90 tabs 10/08/21 cholecalciferol (vitamin D3) 50 2,000 unit PO DAILY #90 caps 10/25/21 mcg (2,000 unit) capsule polyethylene glycol 3350 17 gram 17 g PO DAILY #100 ea 11/22/21 oral powder packet (Miralax) tramadol 50 mg tablet 50 mg PO BID PRN pain 30 days #60 11/22/21 tabs omeprazole 20 mg capsule,delayed 20 mg PO DAILY 90 days #90 caps 01/07/22 release meloxicam 15 mg tablet 15 mg PO DAILY 28 days #90 tabs 01/17/22 dulaglutide 1.5 mg/0.5 mL 1.5 mg (0.5 mL) subcut MO@0900 90 02/12/22 subcutaneous pen injector days #6.5 mL (Trulicity) flash glucose scanning reader #1 ea 02/12/22 (FreeStyle Scott 14 Day [place]) flash glucose sensor (FreeStyle #6 kits 02/12/22 Scott 14 Day Sensor kit) fluticasone furoate 200 1 inh inhalation DAILY #60 ea 02/12/22 mcg-vilanterol 25 mcg/dose inhalation powder (Breo Ellipta) insulin glargine 100 unit/mL (3 60 unit (0.6 mL) subcut DAILY 30 02/12/22 mL) subcutaneous pen (Lantus days #18 mL Solostar U-100 Insulin) montelukast 10 mg tablet 10 mg PO BEDTIME 90 days #90 tabs 02/12/22 (Singulair) flash glucose scanning reader #1 ea 02/14/22 (FreeStyle Scott 2 [place]) flash glucose sensor (FreeStyle #6 kits 02/14/22 Scott 2 Sensor kit) lisinopril 2.5 mg tablet 2.5 mg PO DAILY 90 days #90 tabs 02/14/22 sertraline 100 mg tablet 100 mg PO DAILY 90 days #90 tabs 02/14/22 aspirin 81 mg tablet,delayed 81 mg PO DAILY #90 tabs 03/14/22 release naproxen 500 mg tablet (Naprosyn) 500 mg PO BID #20 tabs 04/29/22 Allergies Allergy/AdvReac Type Severity Reaction Status Date / Time aspirin [ASPIRIN] Allergy Intermediate RASH WITH Verified 02/12/22 10:13 HIGH DOSES Penicillins Allergy Mild HIVES Verified 02/12/22 10:13 phenytoin [From Dilantin] Allergy Mild BURNING Verified 02/12/22 10:13 SENSATION IN BODY butalbital [BUTALBITAL] Allergy Unknown HIVES Verified 02/12/22 10:13 thimerosal [THIMEROSAL] Allergy Unknown UNKNOWN Verified 02/12/22 10:13 doxycycline AdvReac Intermediate penile Verified 02/12/22 10:13 rash? [place] Allergy Unknown Unknown Uncoded 02/12/22 10:13 MOTRIN Allergy Unknown hives Uncoded 02/12/22 10:13 Review of Systems Constitutional: Constitutional: Reports no additional constitutional complaints Eyes: Eyes: Reports no additional eye complaints ENT: Denies dizziness Cardiovascular: Cardiovascular: Reports no additional cardiovascular complaints Respiratory: Respiratory: Reports as per HPI Gastrointestinal: Gastrointestinal: Reports no additional gastrointestinal complaints Musculoskeletal: Musculoskeletal: Reports no additional musculoskeletal complaints Integumentary/Breasts: Skin/Breast: Denies rash Neurologic: Reports system reviewed and no additional complaints, except as documented, Denies dizziness and Denies Sensory deficit (Neuro) Psychiatric: Psychiatric: Denies anxiety PMFSH Past Medical History Medical History BERNARD positive BPH (benign prostatic hyperplasia) Brain tumor Calcaneal spur, right COPD (chronic obstructive pulmonary disease) Diabetes mellitus with hyperglycemia Erectile dysfunction Essential hypertension GERD (gastroesophageal reflux disease) Grand mal seizure disorder History of carpal tunnel syndrome Hypercholesterolemia Inguinal hernia, bilateral Insomnia Lipoma of abdominal wall Migraine Obesity (BMI 30-39.9) Obstructive sleep apnea Osteoarthritis Pulmonary nodule RLS (restless legs syndrome) Skin cyst Stroke Tennis elbow Testicular pain Vitamin B12 deficiency Vitamin D deficiency Surgical History History of diverticulosis History of elbow surgery History of partial gastrectomy History of right inguinal hernia repair Hx of brain surgery Hx of carpal tunnel repair Hx of colonoscopy Hx of foot surgery Hx of prostate biopsy Family History Family History Father Diabetes Throat cancer Heart disease Mother Ovarian cancer Social History Social History Household Members: Spouse Housing: Apartment Are you a primary wound care specialist to a significant other at home: No Do you presently have visiting nurse or other home services: Yes ([facility]) Alcohol intake: never Patient Tobacco Use Status: Never used Tobacco e-Cigarette/Vaping Use: Never Used Second Hand Smoke Exposure: No Use of substances other than those prescribed or required for medical reasons: No Advance Directives: Yes Advance Directives on File: Yes Advance Directives Date on File: 06/13/21 service: No Current occupational status: retired Cognitive needs: No Hearing needs: No Vision needs: No Physical Exam Vital Signs: Vital Signs: Last Vital Signs Temp 97.6 F 04/29/22 15:04 Pulse 75 04/29/22 15:04 Resp 17 04/29/22 15:04 BP 148/70 H 04/29/22 15:04 Pulse Ox 99 04/29/22 15:04 O2 Del Method 04/29/22 15:04 BMI result Body Mass Index 29.9 Const: Other: slightly uncomfortable Nutritional Appearance: average body habitus Orientation/consciousness: oriented to person and patient oriented x3 Limitations: no limitations HEENT: Head: Yes normal to inspection Ears: external ears normal General nose exam: Normal external nose present Mouth: Normal oral and palatal mucosa present and oropharynx normal Throat: Yes posterior oropharynx normal Eyes: General: appearance normal, both eyes and all related structures Neck: Other: supple Neck: Yes normal visual inspection Chest: Chest palpation & inspection: normal inspection of the chest Resp: Auscultation: clear to auscultation bilaterally Cardio: Jugular venous distension: no JVD Rate: regular rate Rhythm: regular rhythm Heart sounds: S1 normal heart sound present and S2 normal heart sound present GI: Inspection: Yes normal to inspection Palpation (GI): Soft to palpation, nontender and No hepatosplenomegaly present Auscultation: normal bowel sounds : General: Yes no CVA tenderness Back/Spine/Pelvis: Back: no CVA tenderness Skin: General skin exam: no rashes or lesions noted Neuro: General: oriented to person and patient oriented x3 Cranial nerves: Yes CN's II-XII intact bilaterally Motor exam (neuro): 5/5 motor strength present throughout Sensory Exam: No Sensory deficit (Neuro) Extrem: General: Yes normal to inspection Psych: Appearance: grossly normal Course Reevaluation(s) Reevaluation #1: patient with abdominal pain and vasovagal syncope, not evidence of cardiac event not evidence of renal colic or urinary retention Time: 16:02 MDM - Syncope Lab Data Result diagrams: 04/29/22 09:44 04/29/22 09:44 Labs: Lab Results 04/29/22 04/29/22 04/29/22 Range/Units 09:44 09:44 09:44 WBC 9.7 (4.8-10.8) X10*3/uL RBC 4.64 (4.60-5.80) X10*6/uL Hgb 13.1 L (14.0-18.0) g/dl Hct 40.0 L (42.0-52.0) % MCV 86.2 (80.0-98.0) fL MCH 28.2 (27.0-33.0) pg MCHC 32.8 (31.0-36.0) g/dl RDW 13.6 (11.0-16.0) % Plt Count 271 (160-400) X10*3/uL MPV 9.0 L (9.4-12.4) fL Immature Gran % (Auto) 0.3 (0.0-0.4) % Neut % (Auto) 77.8 H (45-73) % Lymph % (Auto) 13.7 L (20-40) % [place] % (Auto) 5.5 (2-11) % Eos % (Auto) 2.5 (0-4) % Baso % (Auto) 0.2 (0-2) % Lymph # (Auto) 1.3 (1.2-4.9) X10*3/uL [place] # (Auto) 0.5 (0.1-1.2) X10*3/uL Eos # (Auto) 0.2 (0.0-0.4) X10*3/uL Baso # (Auto) 0.0 (0.0-0.2) X10*3/uL Abs Immat Gran (auto) 0.03 (0.00-0.03) X10*3/uL Absolute Neuts (auto) 7.6 (2.0-8.3) x10*3/uL Absolute Nucleated RBC 0.000 (0.0-0.012) X10*3/uL Nucleated RBC % (auto) 0.0 (0.0-0.2) /100WBC Sodium 136 (135-145) mmol/L Potassium 4.8 (3.3-5.1) mmol/L Chloride 100 (96-108) mmol/L Carbon Dioxide 26 (22-29) mmol/L Anion Gap 15 (12-20) BUN 9 (9-16) mg/dL Creatinine 1.17 (0.5-1.4) mg/dL Estim Creat Clear Calc 57.8 Estimated GFR > 60 POC Glucose (60-115) mg/dL Random Glucose 217 H (60-115) mg/dL Calcium 9.0 (8.4-10.2) mg/dL Total Bilirubin 0.7 (0.0-1.0) mg/dL Direct Bilirubin 0.3 (0.0-0.5) mg/dL AST 20 (5-37) U/L ALT 16 (0-40) U/L Alkaline Phosphatase 118 H (39-117) U/L Troponin I High Sens < 3.5 (<3.5-35.0) ng/L Total Protein 7.1 (6.5-8.0) g/dL Albumin 4.1 (3.5-5.0) g/dL Lipase 11 (8-78) U/L Urine Color Urine Appearance Urine pH (5.0-9.0) Ur Specific [place] (1.005-1.025) Urine Protein (Neg-Trace) mg/dL Urine Glucose (UA) (Negative) mg/dL Urine Ketones (Negative) mg/dL Urine Blood (Negative) Urine Nitrite (Negative) Ur Leukocyte Esterase (Negative) 04/29/22 04/29/22 04/29/22 Range/Units 09:44 13:56 15:51 WBC (4.8-10.8) X10*3/uL RBC (4.60-5.80) X10*6/uL Hgb (14.0-18.0) g/dl Hct (42.0-52.0) % MCV (80.0-98.0) fL MCH (27.0-33.0) pg MCHC (31.0-36.0) g/dl RDW (11.0-16.0) % Plt Count (160-400) X10*3/uL MPV (9.4-12.4) fL Immature Gran % (Auto) (0.0-0.4) % Neut % (Auto) (45-73) % Lymph % (Auto) (20-40) % [place] % (Auto) (2-11) % Eos % (Auto) (0-4) % Baso % (Auto) (0-2) % Lymph # (Auto) (1.2-4.9) X10*3/uL [place] # (Auto) (0.1-1.2) X10*3/uL Eos # (Auto) (0.0-0.4) X10*3/uL Baso # (Auto) (0.0-0.2) X10*3/uL Abs Immat Gran (auto) (0.00-0.03) X10*3/uL Absolute Neuts (auto) (2.0-8.3) x10*3/uL Absolute Nucleated RBC (0.0-0.012) X10*3/uL Nucleated RBC % (auto) (0.0-0.2) /100WBC Sodium (135-145) mmol/L Potassium (3.3-5.1) mmol/L Chloride (96-108) mmol/L Carbon Dioxide (22-29) mmol/L Anion Gap (12-20) BUN (9-16) mg/dL Creatinine (0.5-1.4) mg/dL Estim Creat Clear Calc Estimated GFR POC Glucose 114 (60-115) mg/dL Random Glucose (60-115) mg/dL Calcium (8.4-10.2) mg/dL Total Bilirubin (0.0-1.0) mg/dL Direct Bilirubin (0.0-0.5) mg/dL AST (5-37) U/L ALT (0-40) U/L Alkaline Phosphatase (39-117) U/L Troponin I High Sens < 3.5 (<3.5-35.0) ng/L Total Protein (6.5-8.0) g/dL Albumin (3.5-5.0) g/dL Lipase (8-78) U/L Urine Color Yellow Urine Appearance Clear Urine pH 6.5 (5.0-9.0) Ur Specific [place] <= 1.005 (1.005-1.025) Urine Protein Negative (Neg-Trace) mg/dL Urine Glucose (UA) Negative (Negative) mg/dL Urine Ketones Negative (Negative) mg/dL Urine Blood Negative (Negative) Urine Nitrite Negative (Negative) Ur Leukocyte Esterase Negative (Negative) Imaging Data CT scan - abdomen: Radiologist's impression: IMPRESSION: No significant abnormality is detected. Incidental findings as described above. ? Fleischner guidelines were followed. Discharge Plan Discharge Clinical Impression: Syncope, vasovagal, Abdominal pain Patient Disposition: Home, Self-Care Instructions: Syncope (ED), Abdominal Pain (ED) Prescriptions: New naproxen [Naprosyn] 500 mg tablet 500 mg PO BID Qty: 20 0RF No Action meclizine 25 mg tablet 25 mg PO TID PRN (Reason: dizziness) Qty: 60 11RF metformin 1,000 mg tablet 1,000 mg PO BID 90 Days Qty: 180 2RF atorvastatin 40 mg tablet 40 mg PO BEDTIME Qty: 90 3RF amitriptyline 25 mg tablet 25 mg PO BEDTIME Qty: 90 1RF cholecalciferol (vitamin D3) 50 mcg (2,000 unit) capsule 2,000 unit PO DAILY Qty: 90 2RF omeprazole 20 mg capsule,delayed release(DR/EC) 20 mg PO DAILY 90 Days Qty: 90 1RF meloxicam 15 mg tablet 15 mg PO DAILY 28 Days Qty: 90 0RF (DME) FreeStyle Scott 2 [place] Misc See Rx Instructions .Route Qty: 1 0RF Rx Instructions: As directed (DME) FreeStyle Scott 2 Sensor Kit See Rx Instructions .Route Qty: 6 0RF Rx Instructions: As directed sertraline 100 mg tablet 100 mg PO DAILY 90 Days Qty: 90 1RF lisinopril 2.5 mg tablet 2.5 mg PO DAILY 90 Days Qty: 90 3RF aspirin 81 mg tablet,delayed release (DR/EC) 81 mg PO DAILY Qty: 90 3RF albuterol sulfate [Ventolin HFA] 90 mcg/actuation HFA aerosol inhaler 2 puff PO Q4-6H PRN (Reason: Wheezing) trazodone 50 mg tablet 1 tab PO BEDTIME PRN (Reason: insomnia) triamcinolone acetonide 0.5 % cream 1 appl topical BID Qty: 15 0RF gabapentin 100 mg capsule 100 mg PO BID Qty: 60 0RF diclofenac sodium [Voltaren Arthritis Pain] 1 % gel 2 g topical QID Qty: 100 0RF Rx Instructions: apply to single elbow, wrist or hand; for hand includes palm/fingers/back of hand (DME) Compact Compressor Nebulizer Misc See Rx Instructions .Route Qty: 1 0RF Rx Instructions: As directed (DME) nebulizer accessories Kit See Rx Instructions .Route Qty: 1 0RF Rx Instructions: As directed polyethylene glycol 3350 [Miralax] 17 gram powder in packet 17 g PO DAILY Qty: 100 1RF tramadol 50 mg tablet 50 mg PO BID PRN (Reason: pain) 30 Days Qty: 60 1RF fluticasone furoate-vilanterol [Breo Ellipta] 200-25 mcg/dose blister with device 1 inh inhalation DAILY Qty: 60 0RF montelukast [Singulair] 10 mg tablet 10 mg PO BEDTIME 90 Days Qty: 90 1RF Trulicity 1.5 mg/0.5 mL pen injector 1.5 mg subcut MO@0900 90 Days Qty: 6.5 3RF Lantus Solostar U-100 Insulin 100 unit/mL (3 mL) insulin pen 60 unit subcut DAILY 30 Days Qty: 18 3RF (DME) FreeStyle Scott 14 Day Sensor Kit See Rx Instructions .ROUTE .MEDSUPPLY Qty: 6 3RF Rx Instructions: As directed (DME) FreeStyle Scott 14 Day [place] Misc See Rx Instructions .ROUTE .MEDSUPPLY Qty: 1 0RF Rx Instructions: As directed
[2022-04-29 12:07] VITALS: BP 131/71; PULSE 67; RESP 18; O2SAT 98
[2022-04-29 12:13] VITALS: O2SAT 97
[2022-04-29 14:24] LABS: Troponin-I High Sensitivity < 3.5 ng/L (<3.5-35.0)
[2022-04-29 15:04] VITALS: BP 148/70; PULSE 75; RESP 17; TEMP 36.4; O2SAT 99
[2022-04-29] MEDS: Ketorolac Tromethamine 60 MG/2 ML VIAL IM (15:39)
[2022-04-29 15:56] LABS: Glucose, Whole Blood 114 mg/dL (60-115)
[2022-04-29 16:07] VITALS: BP 147/106; PULSE 76; RESP 16; O2SAT 98
== END 2022-04-29 16:19 | disposition home or self-care (01) ==
PROVIDERS: Emergency Provider Emergency Medicine; PCP Internal Medicine
DX: R55 Syncope and collapse (principal); R30.0 Dysuria; M54.50 Low back pain, unspecified; R10.9 Unspecified abdominal pain; Z79.899 Other long term (current) drug therapy
CPT/HCPCS: 36415; 51798; 74176; 80048; 80076; 81003; 82947; 83690; 84484; 85025; 93005; 96372; 99284; 99285; J1885

== ENCOUNTER 2022-11-11 08:46 | Emergency (ER) | payer MEDICARE, MEDICAID, SELFPAY ==
--- NOTE | ~2022-11-11 | CT_ITS ---
EXAMINATION: CT HEAD WITHOUT CONTRAST CLINICAL INFORMATION: Left-sided pain. History of tumor. COMPARISON: Brain MRI from 06/13/2021. Head CT from 06/13/2021. TECHNIQUE: Contiguous axial imaging was performed from the skull base to vertex without intravenous administration of contrast. This CT examination was performed using dose optimization techniques as appropriate, variously including the following: *Automated exposure control *Adjustment of mA and/or kV according to patient size (this includes techniques or standardized protocols for targeted exams where dose is matched to indication/reason for exam; i.e. extremities or head) *Use of iterative reconstruction technique DLP: 684 mGy-cm FINDINGS: Again noted is the left frontal craniotomy and the chronic hypoattenuation from encephalomalacia, gliosis, of the left frontal lobe. No intracranial hemorrhage, extra-axial collection, focal mass effect or midline shift. There is an area of chronic encephalomalacia from old infarct of the inferior left cerebellar hemisphere. No acute loss of castillo-white differentiation. The ventricles have normal size and configuration; no hydrocephalus. The mastoid air cells are well aerated. There is chronic mucosal thickening of frontal, ethmoid, sphenoid and maxillary sinuses without air-fluid levels. Temporomandibular joints and orbits are unremarkable. CT/CT head/brain wo IV con IMPRESSION: * No evidence of intracranial mass or hemorrhage. * No acute intracranial pathology compared to the brain MRI from 06/13/2021. * There is chronic mucosal thickening of paranasal sinuses without air-fluid levels.
--- NOTE | ~2022-11-11 | XR_ITS ---
EXAMINATION: XR CHEST CLINICAL INFORMATION: Dizziness COMPARISON: 07/01/2021 TECHNIQUE: 2 views of the chest were obtained. FINDINGS: Lungs are well-inflated and clear. Trachea is midline in position. No interstitial disease, consolidation or mass. No pleural effusion or pneumothorax. Cardiac silhouette and pulmonary vessels are normal in size. The mediastinum and victor manuel have normal contour. Surgical clips project over the region of the esophagogastric junction. No acute osseous abnormality. XR/XR chest 2V IMPRESSION: No acute cardiopulmonary disease.
[2022-11-11 08:49] VITALS: BP 131/76; PULSE 92; RESP 18; TEMP 36.7; O2SAT 97; BMI 32.1
--- NOTE | 2022-11-11 09:36 | ED.GENADULT ---
HPI - General Adult General Chief complaint: General Medical Stated complaint: Dizziness/Body aches/Headache Time Seen by Provider: 11/11/22 09:36 Source: patient, family () and matrix repairer Mode of arrival: ambulatory Limitations: language barrier History of Present Illness HPI narrative: History obtained from and matrix repairer -- Patient is a 72 year old assigned male at with a history of diabetes, CVA, and migraine presenting to the emergency department today with left sided headache and body pain. Patient states that the pain began 3 days ago and has been constant. He identified the pain to be on the left side of his head, his left chest and abdomen, as well as his left knee. Patient's stated that he has also been dizzy. Patient denied any trauma or hitting his head on anything. 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 Patient denies any nausea, vomiting, fever, chills, blurry vision, double vision, loss of vision, difficulty breathing, shortness of breath, night sweats, pain with urination, increased urinary frequency, increased urinary urgency, blood in his urine or stool, syncope or a near syncopal episode, recent trauma or falls, bowel incontinence, bladder incontinence, bowel retention, bladder retention, or any other complaints at this time. MD complaint: headache Onset (ago): day(s) (3) Location: head Severity: mild Severity scale (1-10): 2 Quality: aching Pain Consistency: constant Exacerbating factors: movement Associated symptoms: denies other symptoms Treatments prior to arrival: none Related Data Home Medications Medication Instructions Recorded Confirmed trazodone 50 mg tablet 1 tab PO BEDTIME PRN insomnia 06/13/21 02/12/22 albuterol sulfate 90 mcg/actuation 2 puff PO Q4-6H PRN Wheezing 06/24/21 02/12/22 aerosol inhaler (Ventolin HFA) Previous Rx's Medication Instructions Recorded diclofenac sodium 1 % topical gel 2 g topical QID #100 grams 06/21/21 (Voltaren Arthritis Pain) gabapentin 100 mg capsule 100 mg PO BID #60 caps 06/21/21 meclizine 25 mg tablet 25 mg PO TID PRN dizziness #60 tabs 06/21/21 nebulizer accessories #1 ea 07/09/21 nebulizers (Compact Compressor #1 ea 07/09/21 Nebulizer) triamcinolone acetonide 0.5 % 1 appl topical BID #15 grams 08/22/21 topical cream metformin 1,000 mg tablet 1,000 mg PO BID 90 days #180 tabs 08/30/21 atorvastatin 40 mg tablet 40 mg PO BEDTIME #90 tabs 09/16/21 amitriptyline 25 mg tablet 25 mg PO BEDTIME #90 tabs 10/08/21 cholecalciferol (vitamin D3) 50 2,000 unit PO DAILY #90 caps 10/25/21 mcg (2,000 unit) capsule polyethylene glycol 3350 17 gram 17 g PO DAILY #100 ea 11/22/21 oral powder packet (Miralax) tramadol 50 mg tablet 50 mg PO BID PRN pain 30 days #60 11/22/21 tabs omeprazole 20 mg capsule,delayed 20 mg PO DAILY 90 days #90 caps 01/07/22 release meloxicam 15 mg tablet 15 mg PO DAILY 28 days #90 tabs 01/17/22 dulaglutide 1.5 mg/0.5 mL 1.5 mg (0.5 mL) subcut MO@0900 90 02/12/22 subcutaneous pen injector days #6.5 mL (Trulicity) flash glucose scanning reader #1 ea 02/12/22 (FreeStyle Scott 14 Day Blackwell) flash glucose sensor (FreeStyle #6 kits 02/12/22 Scott 14 Day Sensor kit) fluticasone furoate 200 1 inh inhalation DAILY #60 ea 02/12/22 mcg-vilanterol 25 mcg/dose inhalation powder (Breo Ellipta) montelukast 10 mg tablet 10 mg PO BEDTIME 90 days #90 tabs 02/12/22 (Singulair) flash glucose scanning reader #1 ea 02/14/22 (FreeStyle Scott 2 Blackwell) flash glucose sensor (FreeStyle #6 kits 02/14/22 Scott 2 Sensor kit) lisinopril 2.5 mg tablet 2.5 mg PO DAILY 90 days #90 tabs 02/14/22 sertraline 100 mg tablet 100 mg PO DAILY 90 days #90 tabs 02/14/22 aspirin 81 mg tablet,delayed 81 mg PO DAILY #90 tabs 03/14/22 release naproxen 500 mg tablet (Naprosyn) 500 mg PO BID #20 tabs 04/29/22 blood sugar diagnostic (FreeStyle #300 ea 05/08/22 Lite Strips) blood-glucose meter (FreeStyle #1 ea 05/08/22 Lite Meter kit) lancets 28 gauge (FreeStyle #100 ea 05/08/22 Lancets) insulin glargine 100 unit/mL (3 40 unit (0.4 mL) subcut DAILY 30 10/13/22 mL) subcutaneous pen (Lantus days #12 mL Solostar U-100 Insulin) Allergies Allergy/AdvReac Type Severity Reaction Status Date / Time aspirin [ASPIRIN] Allergy Intermediate RASH WITH Verified 11/11/22 08:54 HIGH DOSES Penicillins Allergy Mild HIVES Verified 11/11/22 08:54 phenytoin [From Dilantin] Allergy Mild BURNING Verified 11/11/22 08:54 SENSATION IN BODY butalbital [BUTALBITAL] Allergy Unknown HIVES Verified 11/11/22 08:54 thimerosal [THIMEROSAL] Allergy Unknown UNKNOWN Verified 11/11/22 08:54 doxycycline AdvReac Intermediate penile Verified 11/11/22 08:54 rash? Charlotte Allergy Unknown Unknown Uncoded 06/23/22 10:28 MOTRIN Allergy Unknown hives Uncoded 06/23/22 10:28 Review of Systems Review of Systems: Yes all other systems are reviewed and are negative Constitutional: Constitutional: Reports no additional constitutional complaints, Reports body ache(s), Denies chills, Denies fever(s) and Denies night sweats Eyes: Eyes: Reports no additional eye complaints, Denies blurry vision, Denies change in vision, Denies diplopia, Denies eye discharge, Denies loss of vision and Denies eye pain ENT: Denies dizziness Cardiovascular: Cardiovascular: Reports no additional cardiovascular complaints, Denies chest pain, Denies lightheadedness, Denies Loss of Consciousness and Denies dyspnea Respiratory: Respiratory: Reports no additional respiratory complaints and Denies dyspnea Gastrointestinal: Gastrointestinal: Reports no additional gastrointestinal complaints, Denies abdominal pain, Denies melena, Denies hematochezia, Denies change in bowel habits and Denies change in stool character Genitourinary: Genitourinary: Reports no additional male genitourinary complaints, Denies hematuria, Denies oliguria, Denies difficulty urinating, Denies dysuria, Denies urinary frequency, Denies urinary hesitancy, Denies urinary incontinence and Denies urinary urgency Musculoskeletal: Musculoskeletal: Reports no additional musculoskeletal complaints, Denies numbness and Denies tingling Neurologic: Denies dizziness, Denies loss of vision, Denies numbness and Denies tingling Psychiatric: Psychiatric: Reports no additional psychiatric complaints Endocrine: Endocrine: Reports no additional endocrine complaints Hematologic/Lymphatic: Hematologic/Lymphatic: Reports no additional hematologic/lymphatic complaints Allergic/Immunologic: Allergic/Immunologic: Reports no additional allergic/immunologic complaints [facility] Past Medical History Attestation statement: The following information was validated with the patient. Source: old records reviewed, obtained from family (patient's ) and nursing notes reviewed Medical History BERNARD positive BPH (benign prostatic hyperplasia) Brain tumor Calcaneal spur, right COPD (chronic obstructive pulmonary disease) Diabetes mellitus with hyperglycemia Erectile dysfunction Essential hypertension GERD (gastroesophageal reflux disease) Grand mal seizure disorder History of carpal tunnel syndrome Hypercholesterolemia Inguinal hernia, bilateral Insomnia Lipoma of abdominal wall Migraine Obesity (BMI 30-39.9) Obstructive sleep apnea Osteoarthritis Pulmonary nodule RLS (restless legs syndrome) Skin cyst Stroke Tennis elbow Testicular pain Vitamin B12 deficiency Vitamin D deficiency Surgical History History of diverticulosis History of elbow surgery History of partial gastrectomy History of right inguinal hernia repair Hx of brain surgery Hx of carpal tunnel repair Hx of colonoscopy Hx of foot surgery Hx of prostate biopsy Family History Family History Father Diabetes Throat cancer Heart disease Mother Ovarian cancer Social History Social History Household Members: Spouse Housing: Apartment Are you a primary home care coordinator to a significant other at home: No Do you presently have visiting nurse or other home services: Yes ([facility]) Alcohol intake: never Patient Tobacco Use Status: Never used Tobacco Smoked in Last 30 Days: No e-Cigarette/Vaping Use: Never Used Second Hand Smoke Exposure: No Use of substances other than those prescribed or required for medical reasons: No Advance Directives: Yes Advance Directives on File: Yes Advance Directives Date on File: 06/13/21 service: No Current occupational status: retired Cognitive needs: No Hearing needs: No Vision needs: No Physical Exam ED Vital Signs: Vital Signs - 24 hr 11/11/22 08:49 11/11/22 10:14 Temperature 98.0 F Pulse Rate 92 92 Respiratory Rate 18 16 Blood Pressure 131/76 138/84 Pulse Oximetry 97 100 Oxygen Delivery Method Room Air Room Air BMI result Body Mass Index 32.1 Const General: cooperative, no acute distress, alert and awake Nutritional Appearance: well nourished Orientation/consciousness: patient oriented x3 Limitations: no limitations HENMT Head: Yes normal to inspection and Yes atraumatic Ears: hearing grossly normal bilaterally and external ears normal General nose exam: Normal external nose present, no nasal discharge noted and no epistaxis Face and sinus: Yes normal facial exam, No abrasion and No laceration Mouth: Normal oral and palatal mucosa present, no drooling and no muffled voice Eyes General: appearance normal, both eyes and all related structures Periorbital: periorbital findings normal Eyelids: Yes eyelids normal Conjunctivae: conjunctivae normal Pupils: Equal, round and reactive pupils present EOM: EOMs intact bilaterally Neck Neck: Yes normal visual inspection, Yes full ROM and Yes no lymphadenopathy Chest Chest palpation & inspection: normal inspection of the chest Resp Effort & Inspection: normal respiratory effort and able to speak in complete sentences Auscultation: clear to auscultation bilaterally Cardio Rate: regular rate Rhythm: regular rhythm GI Inspection: Yes normal to inspection Palpation (GI): Soft to palpation, not firm, nontender and no guarding Neuro General: patient oriented x3 and moves all extremities Cranial nerves: Yes Equal, round and reactive pupils present Cognition (Neuro): normal cognition Motor exam (neuro): 5/5 motor strength present throughout Sensory Exam: Normal double simultaneous stimulation for sensation Coordination: [id number] test normal Extrem General: Yes normal to inspection, Yes full ROM and Yes capillary refill normal Psych Appearance: grossly normal Mental Status: mental status grossly normal Affect: normal affect Attitude: cooperative Thought process: Normal thought process present Thought content: Normal thought content present Insight: Good insight present (Psych) Medical Decision Making Medical Decision Making MDM Narrative: Patient is a 72 year old assigned male at with a history of CVA, DM, and HTN presenting to the emergency department today with body aches. Patient's physical exam was unremarkable. Patient's blood work was unremarkable. Patient's EKG was unremarkable. Patient's chest x-ray and head CT showed no acute process. Patient's COVID-19 test came back positive. I explained my physical exam findings as well as all test results to the patient and the patient's . I answered all questions asked by the patient and the patient's . I stressed the importance of the patient taking his medication as prescribed. I stressed the importance of the patient following up with his primary care provider. I stressed the importance of the patient returning to the emergency department immediately if his symptoms were to worsen or if he were to develop any dizziness, shortness of breath, difficulty breathing, chest pain, blurry vision, loss of vision, nausea, vomiting, abdominal pain, fever, chills, back pain, or any other complaints. Patient and the patient's verbalized agreement and understanding with this treatment plan and discharge. Differential Diagnosis Differential Diagnoses: The differential diagnosis associated with the presentation includes COVID-19 Lab Data MDM Lab Attestation statement: I reviewed the patient's lab results. 11/11/22 10:05 11/11/22 10:05 Labs: Lab Results 11/11/22 11/11/22 11/11/22 Range/Units 10:05 10:05 10:05 WBC 7.0 (4.8-10.8) X10*3/uL RBC 4.26 L (4.60-5.80) X10*6/uL Hgb 11.9 L (14.0-18.0) g/dl Hct 35.9 L (42.0-52.0) % MCV 84.3 (80.0-98.0) fL MCH 27.9 (27.0-33.0) pg MCHC 33.1 (31.0-36.0) g/dl RDW 13.5 (11.0-16.0) % Plt Count 265 (160-400) X10*3/uL MPV 9.1 L (9.4-12.4) fL Immature Gran % (Auto) 0.1 (0.0-0.4) % Neut % (Auto) 73.1 H (45-73) % Lymph % (Auto) 13.3 L (20-40) % Rincon % (Auto) 9.8 (2-11) % Eos % (Auto) 3.4 (0-4) % Baso % (Auto) 0.3 (0-2) % Lymph # (Auto) 0.9 L (1.2-4.9) X10*3/uL Rincon # (Auto) 0.7 (0.1-1.2) X10*3/uL Eos # (Auto) 0.2 (0.0-0.4) X10*3/uL Baso # (Auto) 0.0 (0.0-0.2) X10*3/uL Abs Immat Gran (auto) 0.01 (0.00-0.03) X10*3/uL Absolute Neuts (auto) 5.1 (2.0-8.3) x10*3/uL Absolute Nucleated RBC 0.000 (0.0-0.012) X10*3/uL Nucleated RBC % (auto) 0.0 (0.0-0.2) /100WBC Sodium 135 (135-145) mmol/L Potassium 4.3 (3.3-5.1) mmol/L Chloride 101 (96-108) mmol/L Carbon Dioxide 26 (22-29) mmol/L Anion Gap 12 (12-20) BUN 10 (9-16) mg/dL Creatinine 1.17 (0.5-1.4) mg/dL Estim Creat Clear Calc 57.7 Estimated GFR > 60 Random Glucose 296 H (60-115) mg/dL Calcium 9.2 (8.4-10.2) mg/dL Magnesium 1.8 (1.6-2.6) mg/dL Total Bilirubin 0.8 (0.0-1.0) mg/dL AST 15 (5-37) U/L ALT 11 (0-40) U/L Alkaline Phosphatase 123 H (39-117) U/L Total Protein 6.8 (6.5-8.0) g/dL Albumin 4.0 (3.5-5.0) g/dL COVID-19 (NOREEN) (Negative) COVID-19 Clin Com Influenza Type A (SHEYLA) Negative (Negative) Influenza Type B (SHEYLA) Negative (Negative) Influenza A & B Note See Note 11/11/22 Range/Units 10:05 WBC (4.8-10.8) X10*3/uL RBC (4.60-5.80) X10*6/uL Hgb (14.0-18.0) g/dl Hct (42.0-52.0) % MCV (80.0-98.0) fL MCH (27.0-33.0) pg MCHC (31.0-36.0) g/dl RDW (11.0-16.0) % Plt Count (160-400) X10*3/uL MPV (9.4-12.4) fL Immature Gran % (Auto) (0.0-0.4) % Neut % (Auto) (45-73) % Lymph % (Auto) (20-40) % Rincon % (Auto) (2-11) % Eos % (Auto) (0-4) % Baso % (Auto) (0-2) % Lymph # (Auto) (1.2-4.9) X10*3/uL Rincon # (Auto) (0.1-1.2) X10*3/uL Eos # (Auto) (0.0-0.4) X10*3/uL Baso # (Auto) (0.0-0.2) X10*3/uL Abs Immat Gran (auto) (0.00-0.03) X10*3/uL Absolute Neuts (auto) (2.0-8.3) x10*3/uL Absolute Nucleated RBC (0.0-0.012) X10*3/uL Nucleated RBC % (auto) (0.0-0.2) /100WBC Sodium (135-145) mmol/L Potassium (3.3-5.1) mmol/L Chloride (96-108) mmol/L Carbon Dioxide (22-29) mmol/L Anion Gap (12-20) BUN (9-16) mg/dL Creatinine (0.5-1.4) mg/dL Estim Creat Clear Calc Estimated GFR Random Glucose (60-115) mg/dL Calcium (8.4-10.2) mg/dL Magnesium (1.6-2.6) mg/dL Total Bilirubin (0.0-1.0) mg/dL AST (5-37) U/L ALT (0-40) U/L Alkaline Phosphatase (39-117) U/L Total Protein (6.5-8.0) g/dL Albumin (3.5-5.0) g/dL COVID-19 (NOREEN) Positive A (Negative) COVID-19 Clin Com See Note Influenza Type A (SHEYLA) (Negative) Influenza Type B (SHEYLA) (Negative) Influenza A & B Note Independent Interpretation I performed an independent interpretation of an: EKG Interpretation: Vent. Rate: 082 BPM ? ? Atrial Rate: 082 BPM P-R Int: 148 ms? QRS Dur: 074 ms QT Int: 338 ms ? ? ? P-R-T Axes: 027 018 031 degrees QTc Int: 394 ms ? Normal sinus rhythm Normal ECG When compared with ECG of 29-APR-2022 09:34, No significant change was found DD/ 1010 Radiology Impression Radiologist Impression: My interpretation is in agreement with the radiologist's impression of these imaging studies. EXAMINATION: XR CHEST CLINICAL INFORMATION: Dizziness COMPARISON: 07/01/2021 TECHNIQUE: 2 views of the chest were obtained. FINDINGS: Lungs are well-inflated and clear. Trachea is midline in position. No interstitial disease, consolidation or mass. No pleural effusion or pneumothorax.? Cardiac silhouette and pulmonary vessels are normal in size. The mediastinum and victor manuel have normal contour. Surgical clips project over the region of the esophagogastric junction. ?No acute osseous abnormality. XR/XR chest 2V IMPRESSION: No acute cardiopulmonary disease. Dictated By: Timo Doe MD Signed By: Electronically signed by Timo Doe MD 11/11/22 1138 EXAMINATION: CT HEAD WITHOUT CONTRAST CLINICAL INFORMATION: Left-sided pain. History of tumor.? COMPARISON: Brain MRI from 06/13/2021. Head CT from 06/13/2021. TECHNIQUE: Contiguous axial imaging was performed from the skull base to vertex without intravenous administration of contrast. This CT examination was performed using dose optimization techniques as appropriate, variously including the following: *Automated exposure control *Adjustment of mA and/or kV according to patient size (this includes techniques or standardized protocols for targeted exams where dose is matched to indication/reason for exam; i.e. extremities or head) *Use of iterative reconstruction technique DLP: 684 mGy-cm FINDINGS: Again noted is the left frontal craniotomy and the chronic hypoattenuation from encephalomalacia, gliosis, of the left frontal lobe. No intracranial hemorrhage, extra-axial collection, focal mass effect or midline shift. There is an area of chronic encephalomalacia from old infarct of the inferior left cerebellar hemisphere. No acute loss of castillo-white differentiation. The ventricles have normal size and configuration; no hydrocephalus. The mastoid air cells are well aerated. There is chronic mucosal thickening of frontal, ethmoid, sphenoid and maxillary sinuses without air-fluid levels. Temporomandibular joints and orbits are unremarkable. ? CT/CT head/brain wo IV con IMPRESSION: *? No evidence of intracranial mass or hemorrhage. *? No acute intracranial pathology compared to the brain MRI from 06/13/2021. *? There is chronic mucosal thickening of paranasal sinuses without air-fluid levels. Dictated By: Timo Doe MD Signed By: Electronically signed by Timo Doe MD 11/11/22 6330 Independent Historian Clinical information obtained from an independent historian. History obtained from or confirmed by: Spouse Discharge Plan Discharge Clinical Impression: COVID-19 Patient Disposition: Home, Self-Care Instructions: COVID-19 (Coronavirus Disease 2019) (ED) Additional Instructions: Follow up with your primary care provider. Return to the emergency department immediately if your symptoms worsen or if you develop any dizziness, shortness of breath, difficulty breathing, chest pain, blurry vision, loss of vision, nausea, vomiting, abdominal pain, fever, chills, back pain, or any other complaints. Prescriptions: No Action meclizine 25 mg tablet 25 mg PO TID PRN (Reason: dizziness) Qty: 60 11RF metformin 1,000 mg tablet 1,000 mg PO BID 90 Days Qty: 180 2RF atorvastatin 40 mg tablet 40 mg PO BEDTIME Qty: 90 3RF amitriptyline 25 mg tablet 25 mg PO BEDTIME Qty: 90 1RF cholecalciferol (vitamin D3) 50 mcg (2,000 unit) capsule 2,000 unit PO DAILY Qty: 90 2RF omeprazole 20 mg capsule,delayed release(DR/EC) 20 mg PO DAILY 90 Days Qty: 90 1RF meloxicam 15 mg tablet 15 mg PO DAILY 28 Days Qty: 90 0RF (DME) FreeStyle Scott 2 Blackwell Misc See Rx Instructions .Route Qty: 1 0RF Rx Instructions: As directed (DME) FreeStyle Scott 2 Sensor Kit See Rx Instructions .Route Qty: 6 0RF Rx Instructions: As directed sertraline 100 mg tablet 100 mg PO DAILY 90 Days Qty: 90 1RF lisinopril 2.5 mg tablet 2.5 mg PO DAILY 90 Days Qty: 90 3RF aspirin 81 mg tablet,delayed release (DR/EC) 81 mg PO DAILY Qty: 90 3RF Lantus Solostar U-100 Insulin 100 unit/mL (3 mL) insulin pen 40 unit subcut DAILY 30 Days Qty: 12 3RF albuterol sulfate [Ventolin HFA] 90 mcg/actuation HFA aerosol inhaler 2 puff PO Q4-6H PRN (Reason: Wheezing) trazodone 50 mg tablet 1 tab PO BEDTIME PRN (Reason: insomnia) naproxen [Naprosyn] 500 mg tablet 500 mg PO BID Qty: 20 0RF triamcinolone acetonide 0.5 % cream 1 appl topical BID Qty: 15 0RF gabapentin 100 mg capsule 100 mg PO BID Qty: 60 0RF diclofenac sodium [Voltaren Arthritis Pain] 1 % gel 2 g topical QID Qty: 100 0RF Rx Instructions: apply to single elbow, wrist or hand; for hand includes palm/fingers/back of hand (DME) Compact Compressor Nebulizer Misc See Rx Instructions .Route Qty: 1 0RF Rx Instructions: As directed (DME) nebulizer accessories Kit See Rx Instructions .Route Qty: 1 0RF Rx Instructions: As directed polyethylene glycol 3350 [Miralax] 17 gram powder in packet 17 g PO DAILY Qty: 100 1RF tramadol 50 mg tablet 50 mg PO BID PRN (Reason: pain) 30 Days Qty: 60 1RF fluticasone furoate-vilanterol [Breo Ellipta] 200-25 mcg/dose blister with device 1 inh inhalation DAILY Qty: 60 0RF montelukast [Singulair] 10 mg tablet 10 mg PO BEDTIME 90 Days Qty: 90 1RF Trulicity 1.5 mg/0.5 mL pen injector 1.5 mg subcut MO@0900 90 Days Qty: 6.5 3RF (DME) FreeStyle Scott 14 Day Sensor Kit See Rx Instructions .ROUTE .MEDSUPPLY Qty: 6 3RF Rx Instructions: As directed (DME) FreeStyle Scott 14 Day Blackwell [facility] [place] See Rx Instructions .ROUTE .MEDSUPPLY Qty: 1 0RF Rx Instructions: As directed (DME) blood-glucose meter [FreeStyle Lite Meter] Kit See Rx Instructions .ROUTE .MEDSUPPLY Qty: 1 0RF Rx Instructions: As directed check the BS TID (DME) FreeStyle Lite Strips Strip See Rx Instructions .ROUTE .MEDSUPPLY Qty: 300 3RF Rx Instructions: As directed check the BS TID (DME) lancets [FreeStyle Lancets] 28 gauge misc See Rx Instructions .ROUTE .MEDSUPPLY Qty: 100 3RF Rx Instructions: As directed check BS TID Referrals: Elvis,Den Petty MD [Primary Care Provider] - Interventions: ED Discharge Assessment Last Done: 11/11/22 12:18 Discharge Date/Time: 11/11/22 12:18 Print Language: Divehi
--- NOTE | 2022-11-11 09:37 | ECG_ITS ---
Test Reason : DIZZINESS Blood Pressure : / mmHG Vent. Rate : 082 BPM Atrial Rate : 082 BPM P-R Int : 148 ms QRS Dur : 074 ms QT Int : 338 ms P-R-T Axes : 027 018 031 degrees QTc Int : 394 ms Normal sinus rhythm Normal ECG When compared with ECG of 29-APR-2022 09:34, No significant change was found Referred By: Karen Salmeron Electronically Signed By:Layton Novak
[2022-11-11 10:13] LABS: MANUAL DIFF FLAG NO
[2022-11-11 10:14] VITALS: BP 138/84; PULSE 92; RESP 16; O2SAT 100
--- NOTE | 2022-11-11 10:15 | PC.NURSE ---
Pt is alert/oriented. States headache left sided, dizziness, nausea and body aches x 2-3 days. On exam pt appears sl weaker on left however pt reports left sided weakness s/p last CVA. Speech is clear. VSS. Pt does report not taking home meds x 3 months d/t running out. Skin pwd. at bedside. Labs sent. Breathing even.unlabored.
[2022-11-11 10:24] LABS: Basophils Percent Auto 0.3 % (0-2); Eosinophils Absolute Auto 0.2 X10*3/uL (0.0-0.4); Eosinophils Percent Auto 3.4 % (0-4); Hematocrit 35.9 % (42.0-52.0); Hemoglobin 11.9 g/dl (14.0-18.0); Imm Gran Abs Auto 0.01 X10*3/uL (0.00-0.03); Imm Gran Pct Auto 0.1 % (0.0-0.4); Lymphocytes Absolute Auto 0.9 X10*3/uL (1.2-4.9); Lymphocytes Percent Auto 13.3 % (20-40); Mean Corpuscular HGB Conc 33.1 g/dl (31.0-36.0); Mean Corpuscular Hemoglobin 27.9 pg (27.0-33.0); Mean Corpuscular Volume 84.3 fL (80.0-98.0); Mean Platelet Volume 9.1 fL (9.4-12.4); Monocytes Absolute Auto 0.7 X10*3/uL (0.1-1.2); Monocytes Percent Auto 9.8 % (2-11); Neutrophils Absolute Auto 5.1 x10*3/uL (2.0-8.3); Neutrophils Percent Auto 73.1 % (45-73); Platelet Count 265 X10*3/uL (160-400); Red Blood Count 4.26 X10*6/uL (4.60-5.80); Red Cell Distribution Width 13.5 % (11.0-16.0)
[2022-11-11 10:29] LABS: COVID-19 Test Positive (Negative); IDNOW Serial# 08D9AD1C
[2022-11-11 10:31] LABS: Alanine Aminotransferase 11 U/L (0-40); Alkaline Phosphatase 123 U/L (39-117); Anion Gap 12 (12-20); Aspartate Amino Transferase 15 U/L (5-37); Bilirubin Total 0.8 mg/dL (0.0-1.0); Blood Urea Nitrogen 10 mg/dL (9-16); Calcium 9.2 mg/dL (8.4-10.2); Carbon Dioxide 26 mmol/L (22-29); Chloride 101 mmol/L (96-108); Creatinine Clr Calc Pharmacy 57.7; Estimated Glomerular Filt Rate > 60; Glucose Random 296 mg/dL (60-115); IDNOW Serial# BCCEAD1C; Influenza A Negative (Negative); Influenza B2 Negative (Negative); Magnesium 1.8 mg/dL (1.6-2.6); Potassium 4.3 mmol/L (3.3-5.1); Sodium 135 mmol/L (135-145); Total Protein 6.8 g/dL (6.5-8.0)
== END 2022-11-11 12:18 | disposition home or self-care (01) ==
PROVIDERS: Physician Assistant Medical; Emergency Provider Emergency Medicine Emergency Medical Services; PCP Internal Medicine
DX: U07.1 COVID-19 (principal); R51.9 Headache, unspecified; E11.9 Type 2 diabetes mellitus without complications; I10 Essential (primary) hypertension; E78.00 Pure hypercholesterolemia, unspecified; Z86.73 Personal history of transient ischemic attack (TIA), and cerebral infarction without residual deficits; Z79.02 Long term (current) use of antithrombotics/antiplatelets; Z79.899 Other long term (current) drug therapy; Z79.4 Long term (current) use of insulin
CPT/HCPCS: 70450; 71046; 80053; 83735; 85025; 87502; 87635; 93005; 99284

== ENCOUNTER 2022-11-27 09:45 | Emergency (ER) | payer MEDICARE, MEDICAID, SELFPAY ==
--- NOTE | ~2022-11-27 | CT_ITS ---
EXAMINATION: CT HEAD WITHOUT CONTRAST CLINICAL INFORMATION: Acute on chronic left-sided weakness. COMPARISON: 11/11/2022 TECHNIQUE: Contiguous axial imaging was performed from the skull base to vertex without intravenous contrast. This CT examination was performed using dose optimization techniques as appropriate, variously including the following: * Automated exposure control * Adjustment of mA and/or kV according to patient size (this includes techniques or standardized protocols for targeted exams where dose is matched to indication/reason for exam; i.e. extremities or head) Use of iterative reconstruction technique DLP: 682 mGy-cm. FINDINGS: There is no evidence of acute intracranial hemorrhage or territorial infarction. No abnormal mass effect or midline shift is seen. Bach to white matter differentiation is well preserved. No extra-axial fluid collections are identified. No hydrocephalus. No significant volume loss. Prior left frontal craniotomy. Underlying encephalomalacia. This is unchanged. No acute osseous or soft tissue abnormality. The mastoid air cells are well aerated. Moderate diffuse paranasal sinus opacification. CT/CT head/brain wo IV con IMPRESSION: 1. No acute intracranial pathology. 2. Moderate paranasal sinus opacification.
--- NOTE | ~2022-11-27 | XR_ITS ---
EXAMINATION: XR CHEST CLINICAL INFORMATION: Left chest and back pain COMPARISON: 11/11/2022 TECHNIQUE: 2 views of the chest were obtained. FINDINGS: Epigastric clips. The lungs are well expanded. Increased patchy opacities at the right peripheral base. No edema or effusion. No pneumothorax. The cardiomediastinal silhouette is within normal limits. No acute osseous abnormality. XR/XR chest 2V IMPRESSION: Increased patchy opacities at the right peripheral base which could represent atelectasis or pneumonia. Aspiration possible.
[2022-11-27 09:56] VITALS: BP 133/69; PULSE 95; RESP 19; TEMP 36.6; O2SAT 99; BMI 30.9
[2022-11-27 10:15] VITALS: BP 141/73; PULSE 96; RESP 20; TEMP 36.8; O2SAT 99
--- NOTE | 2022-11-27 10:19 | PC.NURSE ---
Pt arrived ambulatory, complaints of L neck pain that radiates down to arm/lung, when he coughs he feels like the pain radiates down arm, reporting some increased weakness in L arm. Denies tingling. No neuro defects noted. awaiting provider at this time
[2022-11-27 11:02] VITALS: BP 136/77; PULSE 90; TEMP 37.1; O2SAT 96
--- NOTE | 2022-11-27 11:52 | ECG_ITS ---
Test Reason : CHEST PAIN Blood Pressure : / mmHG Vent. Rate : 083 BPM Atrial Rate : 083 BPM P-R Int : 148 ms QRS Dur : 076 ms QT Int : 342 ms P-R-T Axes : 038 021 029 degrees QTc Int : 401 ms Normal sinus rhythm Normal ECG When compared with ECG of 11-NOV-2022 10:10, No significant change was found Referred By: Sonny Avila Electronically Signed By:MARGARITA WILLS
--- NOTE | 2022-11-27 12:38 | ED_ITS ---
HPI - General Adult General Chief complaint: General Medical Stated complaint: L side of body pain Time Seen by Provider: 11/27/22 10:47 Source: patient and family Mode of arrival: ambulatory Limitations: no limitations History of Present Illness HPI narrative: [age] year old male presents with left-sided weakness and severe pain. Pain started approximately 3 days ago. The pain is constant. Worse with movement. The pain predominantly is in left upper back area that can radiate down his entire left side into his neck. The pain is better with rest. There is no prior treatment. He also expresses some increasing left-sided weakness. Patient has baseline left-sided weakness secondary to his stroke sometime ago. Patient denies any chest pain, shortness of breath, cough, mucus production, fever, chills, urinary symptoms. Patient denies any new falls or injuries. He denies any heavy lifting or other traumatic sources of discomfort Related Data Home Medications Medication Instructions Recorded Confirmed trazodone 50 mg tablet 1 tab PO BEDTIME PRN insomnia 06/13/21 02/12/22 albuterol sulfate 90 mcg/actuation 2 puff PO Q4-6H PRN Wheezing 06/24/21 02/12/22 aerosol inhaler (Ventolin HFA) Previous Rx's Medication Instructions Recorded diclofenac sodium 1 % topical gel 2 g topical QID #100 grams 06/21/21 (Voltaren Arthritis Pain) gabapentin 100 mg capsule 100 mg PO BID #60 caps 06/21/21 meclizine 25 mg tablet 25 mg PO TID PRN dizziness #60 tabs 06/21/21 nebulizer accessories #1 ea 07/09/21 nebulizers (Compact Compressor #1 ea 07/09/21 Nebulizer) triamcinolone acetonide 0.5 % 1 appl topical BID #15 grams 08/22/21 topical cream metformin 1,000 mg tablet 1,000 mg PO BID 90 days #180 tabs 08/30/21 atorvastatin 40 mg tablet 40 mg PO BEDTIME #90 tabs 09/16/21 amitriptyline 25 mg tablet 25 mg PO BEDTIME #90 tabs 10/08/21 cholecalciferol (vitamin D3) 50 2,000 unit PO DAILY #90 caps 10/25/21 mcg (2,000 unit) capsule polyethylene glycol 3350 17 gram 17 g PO DAILY #100 ea 11/22/21 oral powder packet (Miralax) tramadol 50 mg tablet 50 mg PO BID PRN pain 30 days #60 11/22/21 tabs omeprazole 20 mg capsule,delayed 20 mg PO DAILY 90 days #90 caps 01/07/22 release meloxicam 15 mg tablet 15 mg PO DAILY 28 days #90 tabs 01/17/22 dulaglutide 1.5 mg/0.5 mL 1.5 mg (0.5 mL) subcut MO@0900 90 02/12/22 subcutaneous pen injector days #6.5 mL (Trulicity) flash glucose scanning reader #1 ea 02/12/22 (FreeStyle Scott 14 Day Ehrenberg) flash glucose sensor (FreeStyle #6 kits 02/12/22 Scott 14 Day Sensor kit) fluticasone furoate 200 1 inh inhalation DAILY #60 ea 02/12/22 mcg-vilanterol 25 mcg/dose inhalation powder (Breo Ellipta) montelukast 10 mg tablet 10 mg PO BEDTIME 90 days #90 tabs 02/12/22 (Singulair) flash glucose scanning reader #1 ea 02/14/22 (FreeStyle Scott 2 Ehrenberg) flash glucose sensor (FreeStyle #6 kits 02/14/22 Scott 2 Sensor kit) lisinopril 2.5 mg tablet 2.5 mg PO DAILY 90 days #90 tabs 02/14/22 sertraline 100 mg tablet 100 mg PO DAILY 90 days #90 tabs 02/14/22 aspirin 81 mg tablet,delayed 81 mg PO DAILY #90 tabs 03/14/22 release naproxen 500 mg tablet (Naprosyn) 500 mg PO BID #20 tabs 04/29/22 blood sugar diagnostic (FreeStyle #300 ea 05/08/22 Lite Strips) blood-glucose meter (FreeStyle #1 ea 05/08/22 Lite Meter kit) lancets 28 gauge (FreeStyle #100 ea 05/08/22 Lancets) insulin glargine 100 unit/mL (3 40 unit (0.4 mL) subcut DAILY 30 10/13/22 mL) subcutaneous pen (Lantus days #12 mL Solostar U-100 Insulin) cyclobenzaprine 10 mg tablet 10 mg PO TID PRN muscle spasm #10 11/27/22 tabs lidocaine 5 % topical patch 2 patch topical DAILY #30 ea 11/27/22 (Lidoderm) tramadol 50 mg tablet 50 mg PO Q8H PRN pain #10 tabs 11/27/22 Allergies Allergy/AdvReac Type Severity Reaction Status Date / Time aspirin [ASPIRIN] Allergy Intermediate RASH WITH Verified 11/27/22 09:56 HIGH DOSES Penicillins Allergy Mild HIVES Verified 11/27/22 09:56 phenytoin [From Dilantin] Allergy Mild BURNING Verified 11/27/22 09:56 SENSATION IN BODY butalbital [BUTALBITAL] Allergy Unknown HIVES Verified 11/27/22 09:56 thimerosal [THIMEROSAL] Allergy Unknown UNKNOWN Verified 11/27/22 09:56 doxycycline AdvReac Intermediate penile Verified 11/27/22 09:56 rash? [place] Allergy Unknown Unknown Uncoded 11/27/22 09:56 MOTRIN Allergy Unknown hives Uncoded 11/27/22 09:56 PMFSH Past Medical History Medical History BERNARD positive BPH (benign prostatic hyperplasia) Brain tumor Calcaneal spur, right COPD (chronic obstructive pulmonary disease) Diabetes mellitus with hyperglycemia Erectile dysfunction Essential hypertension GERD (gastroesophageal reflux disease) Grand mal seizure disorder History of carpal tunnel syndrome Hypercholesterolemia Inguinal hernia, bilateral Insomnia Lipoma of abdominal wall Migraine Obesity (BMI 30-39.9) Obstructive sleep apnea Osteoarthritis Pulmonary nodule RLS (restless legs syndrome) Skin cyst Stroke Tennis elbow Testicular pain Vitamin B12 deficiency Vitamin D deficiency Surgical History History of diverticulosis History of elbow surgery History of partial gastrectomy History of right inguinal hernia repair Hx of brain surgery Hx of carpal tunnel repair Hx of colonoscopy Hx of foot surgery Hx of prostate biopsy Family History Family History Father Diabetes Throat cancer Heart disease Mother Ovarian cancer Social History Social History Household Members: Spouse Housing: Apartment Are you a primary nonfarm animal caretaker to a significant other at home: No Do you presently have visiting nurse or other home services: Yes ([facility]) Alcohol intake: never Patient Tobacco Use Status: Never used Tobacco Smoked in Last 30 Days: No e-Cigarette/Vaping Use: Never Used Second Hand Smoke Exposure: No Advance Directives: Yes Advance Directives on File: Yes Advance Directives Date on File: 06/13/21 service: No Current occupational status: retired Cognitive needs: No Hearing needs: No Vision needs: No Physical Exam ED Vital Signs: Vital Signs - 24 hr 11/27/22 09:56 11/27/22 10:15 11/27/22 11:02 Temperature 98 F 98.2 F 98.7 F Pulse Rate 95 96 90 Respiratory Rate 19 20 Blood Pressure 133/69 141/73 H 136/77 Pulse Oximetry 99 99 96 Oxygen Delivery Method Room Air Room Air Room Air BMI result Body Mass Index 30.9 GEN: Well developed, no acute distress, alert, oriented HEENT: Normocephalic, atraumatic, normal external ears, nose appears normal, no oropharyngeal edema or exudates Eyes: Normal to appearance Neck: Supple, no lymphadenopathy Respiratory: Talks in complete sentences, no respiratory distress, clear to auscultation bilaterally Cardiovascular: Regular rate and rhythm, no murmurs rubs or gallops Abdomen: Soft, nontender, nondistended, no guarding, no rebound Back: No CVA tenderness, severe tenderness to the left trapezius, cervical paraspinals, thoracic paraspinous, scapular area, anterior and lateral shoulde Extremities: No clubbing cyanosis or edema, range of motion limited on the left upper shoulder secondary to pain and discomfort, no evidence of deformity or swelling Neurologic: No focal neurologic deficits, cranial nerves 2-12 intact, unable to fully assess bilateral strength secondary to pain Skin: No rash Course Course Course Narrative: 72-year-old male with history of CVA with left-sided weakness presents with severe left-sided pain associated with increasing weakness from baseline. Examination revealed very reproducible tenderness throughout the left side of his back, shoulder area. There are no deformities. No evidence traumatic ecchymoses. His examination is most consistent with a musculoskeletal etiology. There is no evidence of rash to suggest shingles. Patient is not having any significant chest pain or shortness of breath to suggest acute coronary syndrome. It is not a tearing pain, chest pain radiating to the back to suggest acute thoracic aortic dissection. Pulses were symmetrical on examination. Will obtain routine laboratory analysis, EKG, chest x-ray and a CT scan of the head to rule out acute pathology. Further testing considered based on results and clinical findings. Reevaluation(s) Reevaluation #1: patient is feeling moderately better. will try home pain management return for any worsening or concerning symptoms Time: 14:50 Medications Administered Discontinued Medications Generic Name Dose Route Start Last Admin Trade Name Natividad PRN Reason Stop Dose Admin Acetaminophen 975 mg 11/27/22 11:52 11/27/22 13:26 Acetaminophen 325 Mg Tablet PO 11/27/22 11:53 975 mg ONCE ONE Administration Cyclobenzaprine HCl 10 mg 11/27/22 11:52 11/27/22 13:26 Cyclobenzaprine Hcl 10 Mg Tablet PO 11/27/22 11:53 10 mg ONCE ONE Administration Dexamethasone Sodium Phosphate 10 mg 11/27/22 14:29 11/27/22 14:44 Dexamethasone Sod Phosphate 10 Mg/Ml Vial IVPUSH 11/27/22 14:30 10 mg ONCE ONE Administration Gabapentin 300 mg 11/27/22 11:52 11/27/22 13:26 Gabapentin 300 Mg Capsule PO 11/27/22 11:53 300 mg ONCE ONE Administration Ketorolac Tromethamine 15 mg 11/27/22 11:52 11/27/22 13:26 Ketorolac Tromethamine 15 Mg/Ml Vial IVPUSH 11/27/22 11:53 15 mg ONCE ONE Administration Morphine Sulfate 4 mg 11/27/22 11:52 11/27/22 13:26 Morphine Sulfate 4 Mg/Ml Cartridge IVPUSH 11/27/22 11:53 4 mg ONCE ONE Administration Protocol Medical Decision Making Medical Decision Making MDM Narrative: 72-year-old male with history of CVA with left-sided weakness presents with severe left-sided pain associated with increasing weakness from baseline. Examination revealed very reproducible tenderness throughout the left side of his back, shoulder area. There are no deformities. No evidence traumatic ecchymoses. His examination is most consistent with a musculoskeletal etiology. There is no evidence of rash to suggest shingles. Patient is not having any significant chest pain or shortness of breath to suggest acute coronary syndrome. It is not a tearing pain, chest pain radiating to the back to suggest acute thoracic aortic dissection. Pulses were symmetrical on examination. Will obtain routine laboratory analysis, EKG, chest x-ray and a CT scan of the head to rule out acute pathology. Further testing considered based on results and clinical findings. Differential Diagnosis Differential Diagnoses: The differential diagnosis associated with the presentation includes (Musculoskeletal pain, spasm, strain, sprain, contusion, radiculopathy) back pain Admission/Observation Consideration of admission/observation: Escalation of care including admissio n/observation considered Lab Data MDM Lab Attestation statement: I reviewed the patient's lab results. 11/27/22 13:02 11/27/22 13:02 Labs: Lab Results 11/27/22 11/27/22 11/27/22 Range/Units 13:02 13:02 13:02 WBC 11.0 H (4.8-10.8) X10*3/uL RBC 4.21 L (4.60-5.80) X10*6/uL Hgb 11.5 L (14.0-18.0) g/dl Hct 35.8 L (42.0-52.0) % MCV 85.0 (80.0-98.0) fL MCH 27.3 (27.0-33.0) pg MCHC 32.1 (31.0-36.0) g/dl RDW 13.9 (11.0-16.0) % Plt Count 271 (160-400) X10*3/uL MPV 9.5 (9.4-12.4) fL Immature Gran % (Auto) 0.2 (0.0-0.4) % Neut % (Auto) 75.1 H (45-73) % Lymph % (Auto) 15.5 L (20-40) % [place] % (Auto) 8.3 (2-11) % Eos % (Auto) 0.7 (0-4) % Baso % (Auto) 0.2 (0-2) % Lymph # (Auto) 1.7 (1.2-4.9) X10*3/uL [place] # (Auto) 0.9 (0.1-1.2) X10*3/uL Eos # (Auto) 0.1 (0.0-0.4) X10*3/uL Baso # (Auto) 0.0 (0.0-0.2) X10*3/uL Abs Immat Gran (auto) 0.02 (0.00-0.03) X10*3/uL Absolute Neuts (auto) 8.2 (2.0-8.3) x10*3/uL Absolute Nucleated RBC 0.000 (0.0-0.012) X10*3/uL Nucleated RBC % (auto) 0.0 (0.0-0.2) /100WBC ESR (0-15) MM/HR Sodium 135 (135-145) mmol/L Potassium 4.4 (3.3-5.1) mmol/L Chloride 103 (96-108) mmol/L Carbon Dioxide 25 (22-29) mmol/L Anion Gap 11 L (12-20) BUN 12 (9-16) mg/dL Creatinine 1.17 (0.5-1.4) mg/dL Estim Creat Clear Calc 56.6 Estimated GFR > 60 Random Glucose 262 H (60-115) mg/dL Calcium 8.6 D (8.4-10.2) mg/dL Total Creatine Kinase 43 (38-174) U/L Troponin I High Sens < 2.7 (<3.5-35.0) ng/L C-Reactive Protein 8.07 H (< or = 0.50) mg/dL 11/27/22 Range/Units 13:06 WBC (4.8-10.8) X10*3/uL RBC (4.60-5.80) X10*6/uL Hgb (14.0-18.0) g/dl Hct (42.0-52.0) % MCV (80.0-98.0) fL MCH (27.0-33.0) pg MCHC (31.0-36.0) g/dl RDW (11.0-16.0) % Plt Count (160-400) X10*3/uL MPV (9.4-12.4) fL Immature Gran % (Auto) (0.0-0.4) % Neut % (Auto) (45-73) % Lymph % (Auto) (20-40) % [place] % (Auto) (2-11) % Eos % (Auto) (0-4) % Baso % (Auto) (0-2) % Lymph # (Auto) (1.2-4.9) X10*3/uL [place] # (Auto) (0.1-1.2) X10*3/uL Eos # (Auto) (0.0-0.4) X10*3/uL Baso # (Auto) (0.0-0.2) X10*3/uL Abs Immat Gran (auto) (0.00-0.03) X10*3/uL Absolute Neuts (auto) (2.0-8.3) x10*3/uL Absolute Nucleated RBC (0.0-0.012) X10*3/uL Nucleated RBC % (auto) (0.0-0.2) /100WBC ESR 25 H (0-15) MM/HR Sodium (135-145) mmol/L Potassium (3.3-5.1) mmol/L Chloride (96-108) mmol/L Carbon Dioxide (22-29) mmol/L Anion Gap (12-20) BUN (9-16) mg/dL Creatinine (0.5-1.4) mg/dL Estim Creat Clear Calc Estimated GFR Random Glucose (60-115) mg/dL Calcium (8.4-10.2) mg/dL Total Creatine Kinase (38-174) U/L Troponin I High Sens (<3.5-35.0) ng/L C-Reactive Protein (< or = 0.50) mg/dL Independent Interpretation I performed an independent interpretation of an: EKG (Normal sinus rhythm heart rate 83, normal intervals, no acute ST elevations or depressions), Plain X-Ray (S no acute cardiopulmonary disease) and CT Scan (Head, NAD) Radiology Impression Discussion of test interpretation with radiology: I have reviewed the radiologist's reading. ( XR/XR chest 2V IMPRESSION: Increased patchy opacities at the right peripheral base which could represent atelectasis or pneumonia. Aspiration possible. Dictated By:Mk Dominguez MDSigned By:<Electronically signed by Mk Dominguez MD in [place]>11/27/22 1234) Radiologist Impression: CT/CT head/brain wo IV con IMPRESSION: 1.? No acute intracranial pathology. 2.? Moderate paranasal sinus opacification. ? Dictated By: Mk Dominguez MD Signed By: <Electronically signed by Mk Dominguez MD in [place]> 11/27/22 1316 Independent Historian Clinical information obtained from an independent historian. History obtained from or confirmed by: Spouse Prescription Management I considered prescription management with: Pain Medication Discharge Plan Discharge Clinical Impression: Acute left-sided back pain Patient Disposition: Home, Self-Care Instructions: Muscle Spasm (ED), Back Pain (ED) Prescriptions: New cyclobenzaprine 10 mg tablet 10 mg PO TID PRN (Reason: muscle spasm) Qty: 10 0RF tramadol 50 mg tablet 50 mg PO Q8H PRN (Reason: pain) Qty: 10 0RF lidocaine [Lidoderm] 5 % adhesive patch,medicated 2 patch topical DAILY Qty: 30 0RF Rx Instructions: leave on most painful area for up to 12 hrs No Action meclizine 25 mg tablet 25 mg PO TID PRN (Reason: dizziness) Qty: 60 11RF metformin 1,000 mg tablet 1,000 mg PO BID 90 Days Qty: 180 2RF atorvastatin 40 mg tablet 40 mg PO BEDTIME Qty: 90 3RF amitriptyline 25 mg tablet 25 mg PO BEDTIME Qty: 90 1RF cholecalciferol (vitamin D3) 50 mcg (2,000 unit) capsule 2,000 unit PO DAILY Qty: 90 2RF omeprazole 20 mg capsule,delayed release(DR/EC) 20 mg PO DAILY 90 Days Qty: 90 1RF meloxicam 15 mg tablet 15 mg PO DAILY 28 Days Qty: 90 0RF (DME) FreeStyle Scott 2 Ehrenberg Misc See Rx Instructions .Route Qty: 1 0RF Rx Instructions: As directed (DME) FreeStyle Scott 2 Sensor Kit See Rx Instructions .Route Qty: 6 0RF Rx Instructions: As directed sertraline 100 mg tablet 100 mg PO DAILY 90 Days Qty: 90 1RF lisinopril 2.5 mg tablet 2.5 mg PO DAILY 90 Days Qty: 90 3RF aspirin 81 mg tablet,delayed release (DR/EC) 81 mg PO DAILY Qty: 90 3RF Lantus Solostar U-100 Insulin 100 unit/mL (3 mL) insulin pen 40 unit subcut DAILY 30 Days Qty: 12 3RF albuterol sulfate [Ventolin HFA] 90 mcg/actuation HFA aerosol inhaler 2 puff PO Q4-6H PRN (Reason: Wheezing) trazodone 50 mg tablet 1 tab PO BEDTIME PRN (Reason: insomnia) naproxen [Naprosyn] 500 mg tablet 500 mg PO BID Qty: 20 0RF triamcinolone acetonide 0.5 % cream 1 appl topical BID Qty: 15 0RF gabapentin 100 mg capsule 100 mg PO BID Qty: 60 0RF diclofenac sodium [Voltaren Arthritis Pain] 1 % gel 2 g topical QID Qty: 100 0RF Rx Instructions: apply to single elbow, wrist or hand; for hand includes palm/fingers/back of hand (DME) Compact Compressor Nebulizer Misc See Rx Instructions .Route Qty: 1 0RF Rx Instructions: As directed (DME) nebulizer accessories Kit See Rx Instructions .Route Qty: 1 0RF Rx Instructions: As directed polyethylene glycol 3350 [Miralax] 17 gram powder in packet 17 g PO DAILY Qty: 100 1RF tramadol 50 mg tablet 50 mg PO BID PRN (Reason: pain) 30 Days Qty: 60 1RF fluticasone furoate-vilanterol [Breo Ellipta] 200-25 mcg/dose blister with device 1 inh inhalation DAILY Qty: 60 0RF montelukast [Singulair] 10 mg tablet 10 mg PO BEDTIME 90 Days Qty: 90 1RF Trulicity 1.5 mg/0.5 mL pen injector 1.5 mg subcut MO@0900 90 Days Qty: 6.5 3RF (DME) FreeStyle Csott 14 Day Sensor Kit See Rx Instructions .ROUTE .MEDSUPPLY Qty: 6 3RF Rx Instructions: As directed (DME) FreeStyle Scott 14 Day Ehrenberg Misc See Rx Instructions .ROUTE .MEDSUPPLY Qty: 1 0RF Rx Instructions: As directed (DME) blood-glucose meter [FreeStyle Lite Meter] Kit See Rx Instructions .ROUTE .MEDSUPPLY Qty: 1 0RF Rx Instructions: As directed check the BS TID (DME) FreeStyle Lite Strips Strip See Rx Instructions .ROUTE .MEDSUPPLY Qty: 300 3RF Rx Instructions: As directed check the BS TID (DME) lancets [FreeStyle Lancets] 28 gauge misc See Rx Instructions .ROUTE .MEDSUPPLY Qty: 100 3RF Rx Instructions: As directed check BS TID Referrals: Po,Den Petty MD [Primary Care Provider] - 3 days Print Language: Zimbabwean
[2022-11-27 13:07] LABS: MANUAL DIFF FLAG NO
[2022-11-27 13:09] LABS: Basophils Percent Auto 0.2 % (0-2); Eosinophils Absolute Auto 0.1 X10*3/uL (0.0-0.4); Eosinophils Percent Auto 0.7 % (0-4); Hematocrit 35.8 % (42.0-52.0); Hemoglobin 11.5 g/dl (14.0-18.0); Imm Gran Abs Auto 0.02 X10*3/uL (0.00-0.03); Imm Gran Pct Auto 0.2 % (0.0-0.4); Lymphocytes Absolute Auto 1.7 X10*3/uL (1.2-4.9); Lymphocytes Percent Auto 15.5 % (20-40); Mean Corpuscular HGB Conc 32.1 g/dl (31.0-36.0); Mean Corpuscular Hemoglobin 27.3 pg (27.0-33.0); Mean Platelet Volume 9.5 fL (9.4-12.4); Monocytes Absolute Auto 0.9 X10*3/uL (0.1-1.2); Monocytes Percent Auto 8.3 % (2-11); Neutrophils Absolute Auto 8.2 x10*3/uL (2.0-8.3); Neutrophils Percent Auto 75.1 % (45-73); Platelet Count 271 X10*3/uL (160-400); Red Blood Count 4.21 X10*6/uL (4.60-5.80); Red Cell Distribution Width 13.9 % (11.0-16.0)
[2022-11-27] MEDS: Ketorolac Tromethamine 15 MG/ML VIAL IVPUSH (13:26)
[2022-11-27] MEDS: Cyclobenzaprine HCl 10 MG TABLET PO (13:26)
[2022-11-27] MEDS: Morphine Sulfate 4 MG/ML CARTRIDGE IVPUSH (13:26)
[2022-11-27] MEDS: Gabapentin 300 MG CAPSULE PO (13:26)
[2022-11-27] MEDS: Acetaminophen 325 MG TABLET 975 MG PO (13:26)
[2022-11-27 13:28] LABS: Anion Gap 11 (12-20); Blood Urea Nitrogen 12 mg/dL (9-16); Calcium 8.6 mg/dL (8.4-10.2); Carbon Dioxide 25 mmol/L (22-29); Chloride 103 mmol/L (96-108); Creatinine Clr Calc Pharmacy 56.6; Estimated Glomerular Filt Rate > 60; Glucose Random 262 mg/dL (60-115); Potassium 4.4 mmol/L (3.3-5.1); Sodium 135 mmol/L (135-145)
[2022-11-27 13:32] LABS: C Reactive Protein 8.07 mg/dL (< or = 0.50)
[2022-11-27 13:43] LABS: Troponin-I High Sensitivity < 2.7 ng/L (<3.5-35.0)
[2022-11-27 14:07] LABS: Erythrocyte Sedimentation Rate 25 MM/HR (0-15)
[2022-11-27] MEDS: dexAMETHasone sod phosphate 10 MG/ML VIAL IVPUSH (14:44)
[2022-11-27 15:07] VITALS: BP 116/62; PULSE 77; TEMP 37.1; O2SAT 99
--- NOTE | 2022-11-27 15:11 | PC.NURSE ---
pt cleared for discharge. discharge instructions reviewed with pt and at his bedside. pt reports 4/10 pain, states it's tolerable . iv removed.
== END 2022-11-27 15:11 | disposition home or self-care (01) ==
PROVIDERS: Emergency Provider Emergency Medicine; PCP Internal Medicine
DX: M54.6 Pain in thoracic spine (principal); E11.9 Type 2 diabetes mellitus without complications; I10 Essential (primary) hypertension; E78.5 Hyperlipidemia, unspecified; I69.354 Hemiplegia and hemiparesis following cerebral infarction affecting left non-dominant side; Z79.84 Long term (current) use of oral hypoglycemic drugs; Z79.02 Long term (current) use of antithrombotics/antiplatelets; Z79.899 Other long term (current) drug therapy; Z79.82 Long term (current) use of aspirin
CPT/HCPCS: 36415; 70450; 71046; 80048; 82550; 84484; 85025; 85652; 86140; 93005; 96374; 96375; 99284; 99285; J1100; J1885; J2270

== ENCOUNTER 2023-02-04 09:56 | Emergency (ER) | payer OTHER, SELFPAY ==
--- NOTE | ~2023-02-04 | XR_ITS ---
EXAMINATION: XR WRIST, RIGHT CLINICAL INFORMATION: Wrist pain COMPARISON: Radiographs of right hand from 06/02/2018 TECHNIQUE: Four views of the right wrist. FINDINGS: Compared to 06/02/2018, interval proximal row carpectomy. Several residual ossific fragments are present in the region of the absent lunate and scaphoid. There is associated proximal migration of the capitate and development of subarticular sclerosis and subarticular cystic change in the proximal capitate. No aggressive osseous lesions. Negligible osteophyte formation of the first carpometacarpal joint. No erosions or periostitis. Chronic narrowing of joint space and small osteophytes of second metacarpophalangeal joint. Atherosclerotic calcification of radial and ulnar arteries. XR/XR wrist RT min 3V IMPRESSION: * No acute osseous injury at the right wrist. * Compared to 06/02/2018, interval proximal row carpectomy and development of likely degenerative subarticular sclerosis and subarticular cystic change in the proximal capitate. * Minimal osteoarthrosis of first carpometacarpal joint and moderate osteoarthrosis of the second metacarpophalangeal joint.
[2023-02-04 09:59] VITALS: BP 136/70; PULSE 81; RESP 18; TEMP 36.8; O2SAT 99; BMI 30.9
[2023-02-04 11:19] VITALS: BP 129/65; PULSE 65; RESP 14; TEMP 36.4; O2SAT 98
--- NOTE | 2023-02-04 11:20 | PC.NURSE ---
reports right wrist/lower forearm pain with 1+ mild edema. pt denies other sx. +vitals. talking w/o distress. resting calmly.
[2023-02-04 12:11] LABS: MANUAL DIFF FLAG NO
[2023-02-04 12:12] LABS: Basophils Percent Auto 0.3 % (0-2); Eosinophils Absolute Auto 0.3 X10*3/uL (0.0-0.4); Hematocrit 35.9 % (42.0-52.0); Hemoglobin 11.6 g/dl (14.0-18.0); Imm Gran Abs Auto 0.02 X10*3/uL (0.00-0.03); Imm Gran Pct Auto 0.3 % (0.0-0.4); Lymphocytes Absolute Auto 1.6 X10*3/uL (1.2-4.9); Lymphocytes Percent Auto 22.8 % (20-40); Mean Corpuscular HGB Conc 32.3 g/dl (31.0-36.0); Mean Corpuscular Volume 86.7 fL (80.0-98.0); Mean Platelet Volume 8.8 fL (9.4-12.4); Monocytes Absolute Auto 0.4 X10*3/uL (0.1-1.2); Monocytes Percent Auto 5.8 % (2-11); Neutrophils Absolute Auto 4.6 x10*3/uL (2.0-8.3); Neutrophils Percent Auto 66.8 % (45-73); Platelet Count 264 X10*3/uL (160-400); Red Blood Count 4.14 X10*6/uL (4.60-5.80); Red Cell Distribution Width 13.7 % (11.0-16.0); White Blood Count 6.9 X10*3/uL (4.8-10.8)
[2023-02-04] MEDS: Acetaminophen 325 MG TABLET 975 MG PO (12:13)
--- NOTE | 2023-02-04 12:18 | PC.NURSE ---
labs obtained, medicated per OCT for 6/10 wrist pain.
[2023-02-04 12:27] LABS: Alanine Aminotransferase 10 U/L (0-40); Albumin Level 3.8 g/dL (3.5-5.0); Alkaline Phosphatase 104 U/L (39-117); Anion Gap 12 (12-20); Aspartate Amino Transferase 14 U/L (5-37); Bilirubin Direct 0.3 mg/dL (0.0-0.5); Bilirubin Total 0.7 mg/dL (0.0-1.0); Blood Urea Nitrogen 6 mg/dL (9-16); C Reactive Protein 0.42 mg/dL (< or = 0.50); Calcium 9.4 mg/dL (8.4-10.2); Carbon Dioxide 25 mmol/L (22-29); Chloride 105 mmol/L (96-108); Creatinine Clr Calc Pharmacy 70.2; Estimated Glomerular Filt Rate > 60; Glucose Random 232 mg/dL (60-115); Potassium 4.3 mmol/L (3.3-5.1); Sodium 138 mmol/L (135-145); Uric Acid 4.9 mg/dL (3.4-7.0)
[2023-02-04 12:48] LABS: Erythrocyte Sedimentation Rate 12 MM/HR (0-15)
--- NOTE | 2023-02-04 13:13 | ED_ITS ---
HPI - Extremity Problem General Chief complaint: Extremity Problem Stated complaint: right swollen pain arm Time Seen by Provider: 02/04/23 10:27 Source: patient and RN notes reviewed Mode of arrival: ambulatory Limitations: no limitations History of Present Illness HPI Narrative: This is a 73-year-old male, with a past medical history of diabetes, CVA, hypertension, migraines, and GERD presenting to the emergency department for evaluation of right wrist and hand pain since yesterday. Patient denies any recent trauma or injury. Patient reports that he has surgery on his right hand and wrist many years ago for carpal tunnel. He has a history of chronic pain in his right rest. He is right handed. Denies taking any medications at home to treat his current symptoms. No other complaints or concerns at this time. MD Complaint: extremity pain and joint swelling Pain Consistency: constant Location: upper extremity Quality: aching Radiation: none Relieving factors: nothing Exacerbating factors: range of motion and palpation Associated symptoms: denies other symptoms Related Data Previous Rx's Medication Instructions Recorded diclofenac sodium 1 % topical gel 2 g topical QID #100 grams 06/21/21 (Voltaren Arthritis Pain) nebulizer accessories #1 ea 07/09/21 nebulizers (Compact Compressor #1 ea 07/09/21 Nebulizer) triamcinolone acetonide 0.5 % 1 appl topical BID #15 grams 08/22/21 topical cream polyethylene glycol 3350 17 gram 17 g PO DAILY #100 ea 11/22/21 oral powder packet (Miralax) flash glucose scanning reader #1 ea 02/12/22 (FreeStyle Scott 14 Day [place]) flash glucose sensor (FreeStyle #6 kits 02/12/22 Scott 14 Day Sensor kit) flash glucose scanning reader #1 ea 02/14/22 (FreeStyle [place] 2 [place]) flash glucose sensor (FreeStyle #6 kits 02/14/22 Scott 2 Sensor kit) blood-glucose meter (FreeStyle #1 ea 05/08/22 Lite Meter kit) insulin glargine 100 unit/mL (3 40 unit (0.4 mL) subcut DAILY 30 10/13/22 mL) subcutaneous pen (Lantus days #12 mL Solostar U-100 Insulin) cyclobenzaprine 10 mg tablet 10 mg PO TID PRN muscle spasm #10 11/27/22 tabs lidocaine 5 % topical patch 2 patch topical DAILY #30 ea 11/27/22 (Lidoderm) amitriptyline 25 mg tablet 25 mg PO BEDTIME #90 tabs 12/03/22 aspirin 81 mg tablet,delayed 81 mg PO DAILY #90 tabs 12/03/22 release atorvastatin 40 mg tablet 40 mg PO BEDTIME #90 tabs 12/03/22 cholecalciferol (vitamin D3) 50 2,000 unit PO DAILY #90 caps 12/03/22 mcg (2,000 unit) capsule dulaglutide 0.75 mg/0.5 mL 0.75 mg (0.5 mL) subcut QWEEK 90 12/03/22 subcutaneous pen injector days #6.5 mL fluticasone furoate 200 1 inh inhalation DAILY #60 ea 12/03/22 mcg-vilanterol 25 mcg/dose inhalation powder (Breo Ellipta) gabapentin 100 mg capsule 100 mg PO BID #60 caps 12/03/22 lisinopril 2.5 mg tablet 2.5 mg PO DAILY 90 days #90 tabs 12/03/22 metformin 1,000 mg tablet 1,000 mg PO BID 90 days #180 tabs 12/03/22 montelukast 10 mg tablet 10 mg PO BEDTIME 90 days #90 tabs 12/03/22 (Singulair) omeprazole 20 mg capsule,delayed 20 mg PO DAILY 90 days #90 caps 12/03/22 release sertraline 100 mg tablet 100 mg PO DAILY 90 days #90 tabs 12/03/22 lancets 28 gauge (FreeStyle #100 ea 12/30/22 Lancets) tramadol 50 mg tablet 50 mg PO BID PRN pain 30 days #60 12/30/22 tabs blood sugar diagnostic (FreeStyle #300 ea 01/12/23 Lite Strips) meclizine 25 mg tablet 25 mg PO TID PRN dizziness #60 tabs 01/12/23 blood sugar diagnostic (OneTouch #100 ea 01/14/23 Ultra Test strips) blood-glucose meter (OneTouch #1 ea 01/14/23 Ultra2 Meter) lancets 30 gauge (OneTouch #100 ea 01/14/23 UltraSoft 2 Lancet) albuterol sulfate 90 mcg/actuation 2 puff PO Q4-6H PRN for wheezing 01/20/23 aerosol inhaler (Ventolin HFA) #18 grams acetaminophen 325 mg capsule 650 mg PO Q6H PRN pain #30 caps 02/04/23 (Tylenol) prednisone 20 mg tablet 40 mg PO DAILY 5 days #10 tabs 02/04/23 Allergies Allergy/AdvReac Type Severity Reaction Status Date / Time aspirin [ASPIRIN] Allergy Intermediate RASH WITH Verified 12/03/22 11:41 HIGH DOSES Penicillins Allergy Mild HIVES Verified 12/03/22 11:41 phenytoin [From Dilantin] Allergy Mild BURNING Verified 12/03/22 11:41 SENSATION IN BODY butalbital [BUTALBITAL] Allergy Unknown HIVES Verified 12/03/22 11:41 thimerosal [THIMEROSAL] Allergy Unknown UNKNOWN Verified 12/03/22 11:41 doxycycline AdvReac Intermediate penile Verified 12/03/22 11:41 rash? [place] Allergy Unknown Unknown Uncoded 12/03/22 11:41 MOTRIN Allergy Unknown hives Uncoded 12/03/22 11:41 Review of Systems Review of Systems: Constitutional: No Weight loss, No Fever, No Chills, No Night Sweats, No Fatigue, No Malaise ENT/Mouth: No Hearing loss, No Ear Pain, No Nasal Congestion, No Sinus Pain, No Hoarseness, No sore throat, No Rhinorrhea, No Swallowing Difficulty Eyes: No Eye Pain, No Swelling, No Redness, No Foreign Body, No Discharge, No Vision Changes Cardiovascular: No Chest Pain, No SOB, No Dyspnea on Exertion, No Orthopnea, No Edema, No Palpitations Respiratory: No Cough, No Sputum, No Wheezing, No Smoke Exposure, No Dyspnea Gastrointestinal: No Nausea, No Vomiting, No Diarrhea, No Constipation, No Abdom inal pain, No Hematochezia, No Melena Genitourinary: No irregular bleeding, No Dysuria, No Urinary Frequency, No Hematuria, No Urinary Incontinence/retention, No Urgency, No Flank Pain, No Urinary Flow Changes, No Hesitancy Musculoskeletal: No joint pain, No Myalgias, No Joint Swelling Skin: No Skin Lesions, No rash Neuro: No Weakness, No Numbness, No Paresthesias, No Loss of Consciousness, No Dizziness, No Headache Psych: No Anxiety/Panic, No Depression, No SI/HI/AH/VH, No Social Issues, Heme/Lymph: No Bruising, No Bleeding,No Lymphadenopathy Endocrine: No Polyuria, No Polydipsia, No Temperature Intolerance Yes all other systems are reviewed and are negative Constitutional: Constitutional: Reports as per [facility] Past Medical History Medical History BERNARD positive BPH (benign prostatic hyperplasia) Brain tumor Calcaneal spur, right COPD (chronic obstructive pulmonary disease) Diabetes mellitus with hyperglycemia Erectile dysfunction Essential hypertension GERD (gastroesophageal reflux disease) Grand mal seizure disorder History of carpal tunnel syndrome Hypercholesterolemia Inguinal hernia, bilateral Insomnia Lipoma of abdominal wall Migraine Obesity (BMI 30-39.9) Obstructive sleep apnea Osteoarthritis Pulmonary nodule RLS (restless legs syndrome) Skin cyst Stroke Tennis elbow Testicular pain Vitamin B12 deficiency Vitamin D deficiency Surgical History History of diverticulosis History of elbow surgery History of partial gastrectomy History of right inguinal hernia repair Hx of brain surgery Hx of carpal tunnel repair Hx of colonoscopy Hx of foot surgery Hx of prostate biopsy Family History Family History Father Diabetes Throat cancer Heart disease Mother Ovarian cancer Social History Social History Household Members: Spouse Housing: Apartment Are you a primary date night caregiver to a significant other at home: No Do you presently have visiting nurse or other home services: Yes ([facility]) Alcohol intake: never Patient Tobacco Use Status: Never used Tobacco Smoked in Last 30 Days: Yes e-Cigarette/Vaping Use: Never Used Second Hand Smoke Exposure: No Use of substances other than those prescribed or required for medical reasons: No Advance Directives: Yes Advance Directives on File: Yes Advance Directives Date on File: 06/13/21 service: No Current occupational status: retired Cognitive needs: No Hearing needs: No Vision needs: No Physical Exam Vital Signs: Vital Signs: Last Vital Signs Temp 97.8 F 02/04/23 13:41 Pulse 62 02/04/23 13:41 Resp 12 02/04/23 13:41 BP 114/77 02/04/23 13:41 Pulse Ox 98 02/04/23 13:41 O2 Del Method Room Air 02/04/23 13:41 BMI result Body Mass Index 30.9 Const: General: cooperative, comfortable and no acute distress Orientation/consciousness: patient oriented x3 Limitations: no limitations HEENT: Head: Yes normal to inspection, Yes normocephalic and Yes atraumatic Ears: hearing grossly normal bilaterally General nose exam: Normal external nose present Face and sinus: Yes normal facial exam Mouth: Normal oral and palatal mucosa present, oropharynx normal and moist mucous membranes Throat: Yes posterior oropharynx normal Eyes: General: appearance normal, both eyes and all related structures Eyelids: Yes eyelids normal Conjunctivae: conjunctivae normal Sclerae: sclerae normal Pupils: Equal, round and reactive pupils present EOM: EOMs intact bilaterally Neck: Neck: Yes normal visual inspection, Yes full ROM and Yes no lymphadenopathy Lymphatic: no lymphadenopathy noted Chest: Chest palpation & inspection: normal inspection of the chest Resp: Effort & Inspection: normal respiratory effort and able to speak in complete sentences Auscultation: clear to auscultation bilaterally, no crackles, no rales, no rhonchi and no wheezes Cardio: Rate: regular rate Rhythm: regular rhythm Heart sounds: S1 normal heart sound present and S2 normal heart sound present GI: Inspection: Yes normal to inspection Skin: General skin exam: no rashes or lesions noted Trauma: no lacerations or abrasions Wounds: no wounds Neuro: General: patient oriented x3 and moves all extremities Cranial nerves: Yes Equal, round and reactive pupils present Extrem: Other: Right hand and wrist with edema noted to the distal radius and ulna, which is tenderness to palpation. No erythema or edema. Able to flex, pain with hyperextension. Radial pulses 2+. General: Yes normal to inspection Right upper extremity: normal to inspection Left upper extremity: normal to inspection Right lower extrem ity: normal to inspection Left lower extremity: normal to inspection Course Reevaluation(s) Reevaluation #1: Wrist x-ray showing interval proximal row carpectomy and development of likely degenerative subarticular sclerosis andsubarticular cystic change in the proximal capitate. Minimal osteoarthrosis of first carpometacarpal joint and moderate osteoarthrosis of the second metacarpophalangeal joint discussed with patient and . Patient would benefit from seeing Orthopedics outpatient. Will treat with short course of steroids, and Tylenol. Patient understands and agrees with plan, patient stable for discharge. Time: 13:19 Medications Administered Discontinued Medications Generic Name Dose Route Start Last Admin Trade Name Freq PRN Reason Stop Dose Admin Acetaminophen 975 mg 02/04/23 12:10 02/04/23 12:13 Acetaminophen 325 Mg Tablet PO 02/04/23 12:11 975 mg ONCE ONE Administration Medical Decision Making Medical Decision Making [facility] Narrative: 73-year-old male presenting to the emergency department for evaluation of right wrist pain. Atraumatic, history of chronic wrist pain and has had carpal tunnel surgery in the past. Vital signs stable, patient is afebrile. Right dorsal wrist overlying the distal radial and ulna there is moderate edema noted that is tender to palpation. No overlying erythema. Patient is able to move rest, therefore septic arthritis is unlikely. Given pain symptoms will obtain basic labs, and x-rays. Plan: X-ray, basic labs, inflammatory markers, uric acid, Tylenol Differential Diagnosis Differential Diagnoses: The differential diagnosis associated with the presentation includes Arthritis, degenerative changes, septic arthritis-less likely, fracture Admission/Observation Consideration of admission/observation: Escalation of care including admission/observation considered Lab Data [facility] Lab Attestation statement: I reviewed the patient's lab results. 02/04/23 12:07 02/04/23 12:07 Labs: Lab Results 02/04/23 02/04/23 02/04/23 Range/Units 12:07 12:07 12:07 WBC 6.9 (4.8-10.8) X10*3/uL RBC 4.14 L (4.60-5.80) X10*6/uL Hgb 11.6 L (14.0-18.0) g/dl Hct 35.9 L (42.0-52.0) % MCV 86.7 (80.0-98.0) fL MCH 28.0 (27.0-33.0) pg MCHC 32.3 (31.0-36.0) g/dl RDW 13.7 (11.0-16.0) % Plt Count 264 (160-400) X10*3/uL MPV 8.8 L (9.4-12.4) fL Immature Gran % (Auto) 0.3 (0.0-0.4) % Neut % (Auto) 66.8 (45-73) % Lymph % (Auto) 22.8 (20-40) % [place] % (Auto) 5.8 (2-11) % Eos % (Auto) 4.0 (0-4) % Baso % (Auto) 0.3 (0-2) % Lymph # (Auto) 1.6 (1.2-4.9) X10*3/uL [place] # (Auto) 0.4 (0.1-1.2) X10*3/uL Eos # (Auto) 0.3 (0.0-0.4) X10*3/uL Baso # (Auto) 0.0 (0.0-0.2) X10*3/uL Abs Immat Gran (auto) 0.02 (0.00-0.03) X10*3/uL Absolute Neuts (auto) 4.6 (2.0-8.3) x10*3/uL Absolute Nucleated RBC 0.000 (0.0-0.012) X10*3/uL Nucleated RBC % (auto) 0.0 (0.0-0.2) /100WBC ESR 12 (0-15) MM/HR Sodium 138 (135-145) mmol/L Potassium 4.3 (3.3-5.1) mmol/L Chloride 105 (96-108) mmol/L Carbon Dioxide 25 (22-29) mmol/L Anion Gap 12 (12-20) BUN 6 L (9-16) mg/dL Creatinine 0.93 (0.5-1.4) mg/dL Estim Creat Clear Calc 70.2 Estimated GFR > 60 Random Glucose 232 H (60-115) mg/dL Uric Acid 4.9 (3.4-7.0) mg/dL Calcium 9.4 D (8.4-10.2) mg/dL Total Bilirubin 0.7 (0.0-1.0) mg/dL Direct Bilirubin 0.3 (0.0-0.5) mg/dL AST 14 (5-37) U/L ALT 10 (0-40) U/L Alkaline Phosphatase 104 (39-117) U/L C-Reactive Protein 0.42 (< or = 0.50) mg/dL Total Protein 7.0 (6.5-8.0) g/dL Albumin 3.8 (3.5-5.0) g/dL Radiology Impression Discussion of test interpretation with radiology: I have reviewed the radiologist's reading. External Record Review External record reviewed: Inpatient record, Office record, Outpatient record, Prior outpatient labs, Prior outpatient radiology, Primary care record and Outside ED record Discharge Plan Discharge Clinical Impression: Right wrist pain Patient Disposition: Home, Self-Care Additional Instructions: Your x-ray does not show any new fractures. Your wrist x-ray does show degenerative changes. Please take prescribed prednisone as directed. Please monitor your glucose levels more closely as prednisone can cause an elevation in your blood glucose levels. Please take Tylenol as directed. You may wear the wrist splint for comfort. May apply ice or heat to the area. Continue performing gentle range of motion 2 year right wrist. Do not stay in the wrist splint 247. Call Orthopedics for follow-up. Any new or worsening symptoms occur please return for re-evaluation. [place] radiograf?a no muestra nuevas fracturas. La radiograf?a de [place] mu?eca muestra cambios degenerativos. [place] la prednisona recetada seg?n las indicaciones. [place] Tylenol seg?n las indicaciones. Puede usar la f?saira para la mu?eca para mayor comodidad. Puede aplicar hielo o calor en el ?gardenia. Contin?e realizando un rango suave de movimiento de la mu?eca derecha de 2 a?os. No se quede en la f?saira de mu?eca 247. Llame a [employer] para seguimiento. Si se presentan s?ntomas nuevos o que empeoran, regrese para gaye reevaluaci?n. Prescriptions: New prednisone 20 mg tablet 40 mg PO DAILY 5 Days Qty: 10 0RF acetaminophen [Tylenol] 325 mg capsule 650 mg PO Q6H PRN (Reason: pain) Qty: 30 0RF No Action (DME) FreeStyle Scott 2 [place] Misc See Rx Instructions .Route Qty: 1 0RF Rx Instructions: As directed (DME) FreeStyle Scott 2 Sensor Kit See Rx Instructions .Route Qty: 6 0RF Rx Instructions: As directed Lantus Solostar U-100 Insulin 100 unit/mL (3 mL) insulin pen 40 unit subcut DAILY 30 Days Qty: 12 3RF tramadol 50 mg tablet 50 mg PO BID PRN (Reason: pain) 30 Days Qty: 60 1RF (DME) lancets [FreeStyle Lancets] 28 gauge misc See Rx Instructions .ROUTE .MEDSUPPLY Qty: 100 3RF Rx Instructions: As directed check BS TID (DME) FreeStyle Lite Strips Strip See Rx Instructions .ROUTE .MEDSUPPLY Qty: 300 3RF Rx Instructions: As directed check the BS TID meclizine 25 mg tablet 25 mg PO TID PRN (Reason: dizziness) Qty: 60 11RF (DME) blood-glucose meter [OneTouch Ultra2 Meter] Mis See Rx Instructions .Route Qty: 1 0RF Rx Instructions: test 3 times per day (DME) lancets [OneTouch UltraSoft 2 Lancet] 30 gauge misc See Rx Instructions .Route Qty: 100 5RF Rx Instructions: As directed (DME) OneTouch Ultra Test Strip See Rx Instructions .Route Qty: 100 5RF Rx Instructions: test 3 times per day albuterol sulfate [Ventolin HFA] 90 mcg/actuation HFA aerosol inhaler 2 puff PO Q4-6H PRN (Reason: for wheezing) Qty: 18 0RF cyclobenzaprine 10 mg tablet 10 mg PO TID PRN (Reason: muscle spasm) Qty: 10 0RF lidocaine [Lidoderm] 5 % adhesive patch,medicated 2 patch topical DAILY Qty: 30 0RF Rx Instructions: leave on most painful area for up to 12 hrs triamcinolone acetonide 0.5 % cream 1 appl topical BID Qty: 15 0RF diclofenac sodium [Voltaren Arthritis Pain] 1 % gel 2 g topical QID Qty: 100 0RF Rx Instructions: apply to single elbow, wrist or hand; for hand includes palm/fingers/back of hand (DME) Compact Compressor Nebulizer Misc See Rx Instructions .Route Qty: 1 0RF Rx Instructions: As directed (DME) nebulizer accessories Kit See Rx Instructions .Route Qty: 1 0RF Rx Instructions: As directed polyethylene glycol 3350 [Miralax] 17 gram powder in packet 17 g PO DAILY Qty: 100 1RF (DME) FreeStyle Scott 14 Day Sensor Kit See Rx Instructions .ROUTE .MEDSUPPLY Qty: 6 3RF Rx Instructions: As directed (DME) FreeStyle Scott 14 Day [place] [facility] See Rx Instructions .ROUTE .MEDSUPPLY Qty: 1 0RF Rx Instructions: As directed amitriptyline 25 mg tablet 25 mg PO BEDTIME Qty: 90 1RF aspirin 81 mg tablet,delayed release (DR/EC) 81 mg PO DAILY Qty: 90 3RF atorvastatin 40 mg tablet 40 mg PO BEDTIME Qty: 90 3RF cholecalciferol (vitamin D3) 50 mcg (2,000 unit) capsule 2,000 unit PO DAILY Qty: 90 2RF Trulicity 0.75 mg/0.5 mL pen injector 0.75 mg subcut QWEEK 90 Days Qty: 6.5 3RF fluticasone furoate-vilanterol [Breo Ellipta] 200-25 mcg/dose blister with device 1 inh inhalation DAILY Qty: 60 3RF gabapentin 100 mg capsule 100 mg PO BID Qty: 60 0RF lisinopril 2.5 mg tablet 2.5 mg PO DAILY 90 Days Qty: 90 3RF metformin 1,000 mg tablet 1,000 mg PO BID 90 Days Qty: 180 2RF montelukast [Singulair] 10 mg tablet 10 mg PO BEDTIME 90 Days Qty: 90 1RF omeprazole 20 mg capsule,delayed release(DR/EC) 20 mg PO DAILY 90 Days Qty: 90 1RF sertraline 100 mg tablet 100 mg PO DAILY 90 Days Qty: 90 1RF (DME) blood-glucose meter [FreeStyle Lite Meter] Kit See Rx Instructions .ROUTE .MEDSUPPLY Qty: 1 0RF Rx Instructions: As directed check the BS TID [place] [facility] [place] [place] Group] Print Language: [place]
[2023-02-04 13:41] VITALS: BP 114/77; PULSE 62; RESP 12; TEMP 36.6; O2SAT 98
--- NOTE | 2023-02-04 13:51 | PC.NURSE ---
pt has r wrist elevated w ice pack. +CSM. no acute distress
== END 2023-02-04 14:27 | disposition home or self-care (01) ==
PROVIDERS: Physician Assistant Medical; Emergency Provider Emergency Medicine; PCP Internal Medicine
DX: M25.531 Pain in right wrist (principal); M19.041 Primary osteoarthritis, right hand; R60.9 Edema, unspecified; E11.9 Type 2 diabetes mellitus without complications; I10 Essential (primary) hypertension; Z79.899 Other long term (current) drug therapy
CPT/HCPCS: 36415; 73110; 80048; 80076; 84550; 85025; 85652; 86140; 99283; 99284

== ENCOUNTER 2023-03-13 09:27 | Outpatient (AMB) | payer OTHER, SELFPAY ==
[2023-03-13 09:33] VITALS: BP 118/70; PULSE 82; O2SAT 98; BMI 30.2
--- NOTE | 2023-03-13 09:33 | MHC.PC.OV ---
Vital Signs 03/13/23 09:33 Height 5 ft 4 in Weight 176 lb BMI 30.2 BP 118/70 Blood Pressure Location Lt brachial Position Sitting Pulse 82 Pulse Source Pulse Oximeter Pulse Oximetry (%) 98 Oxygen Delivery Method Room Air Intake Visit Reasons: 3 month f/u Allergies aspirin [ASPIRIN] Allergy (Intermediate, Verified 03/13/23 09:33) RASH WITH HIGH DOSES Penicillins Allergy (Mild, Verified 03/13/23 09:33) HIVES phenytoin [From Dilantin] Allergy (Mild, Verified 03/13/23 09:33) BURNING SENSATION IN BODY butalbital [BUTALBITAL] Allergy (Unknown, Verified 03/13/23 09:33) HIVES thimerosal [THIMEROSAL] Allergy (Unknown, Verified 03/13/23 09:33) UNKNOWN doxycycline Adverse Reaction (Intermediate, Verified 03/13/23 09:33) penile rash? [place] Allergy (Unknown, Uncoded 03/13/23 09:33) Unknown MOTRIN Allergy (Unknown, Uncoded 03/13/23 09:33) hives Medication List - Last Reconciled 03/13/23 by Den Leal MD acetaminophen (Tylenol) 650 mg (2 x 325 mg) PO Q6H PRN albuterol sulfate 90 mcg/actuation (Ventolin HFA) 2 puffs PO Q4-6H PRN amitriptyline 25 mg PO BEDTIME aspirin 81 mg PO DAILY atorvastatin 40 mg PO BEDTIME blood sugar diagnostic (FreeStyle Lite Strips) As directed check the BS TID blood sugar diagnostic (OneTouch Ultra Test strips) test 3 times per day blood-glucose meter (OneTouch Ultra2 Meter) test 3 times per day blood-glucose meter (FreeStyle Lite Meter kit) As directed check the BS TID cholecalciferol (vitamin D3) 2,000 units PO DAILY cyclobenzaprine 10 mg PO TID PRN diclofenac sodium 1% (Voltaren Arthritis Pain) 2 grams topical QID dulaglutide 0.75 mg (0.5 mL) subcut QWEEK 90 days flash glucose scanning reader (FreeStyle Scott 2 [place]) As directed flash glucose scanning reader (FreeStyle Scott 14 Day [place]) As directed flash glucose sensor (FreeStyle Scott 14 Day Sensor kit) As directed flash glucose sensor (FreeStyle Scott 2 Sensor kit) As directed fluticasone furoate-vilanterol 200-25 mcg/dose (Breo Ellipta) 1 inh inhalation DAILY gabapentin 100 mg PO BID insulin glargine (Lantus Solostar U-100 Insulin) 10 units (0.1 mL) subcut DAILY 30 days lancets (FreeStyle Lancets) As directed check BS TID lancets (OneTouch UltraSoft 2 Lancet) As directed lidocaine 5% (Lidoderm) 2 patches topical DAILY lisinopril 2.5 mg PO DAILY 90 days meclizine 25 mg PO TID PRN metformin 1,000 mg PO BID 90 days montelukast (Singulair) 10 mg PO BEDTIME 90 days nebulizer accessories As directed nebulizers (Compact Compressor Nebulizer) As directed omeprazole 20 mg PO DAILY 90 days pen needle, diabetic (BD Ultra-Fine Mini Pen Needle) As directed Inject LAntus 10 u QD polyethylene glycol 3350 (Miralax) 17 grams PO DAILY prednisone 40 mg (2 x 20 mg) PO DAILY 5 days sertraline 100 mg PO DAILY 90 days tramadol 50 mg PO BID PRN 30 days triamcinolone acetonide 0.5% 1 appl topical BID Tobacco use date assessed: 12/03/22 Fall risk assessment: No Falls in past year Last assessed Fall Risk: 03/13/23 Dental Screening Dental Screen Date: 03/13/23 Did you have a dental visit in the last 12 months?: No Did you have a dental problem in the last 6 months where you did not have access to dental care?: No Was dental information given to patient?: Patient has dentist HPI 3 month f/u HPI Details 73-year-old obese male with multiple medical problems. Patient has diabetes mellitus hypertension GERD obstructive sleep apnea hypercholesterolemia asthma and recurrent major depression last seen in November 2022 patient is here for follow-up. Review of the notes in early February complained of right wrist pain x-ray showing degenerative subarticular sclerosis and subarticular cystic change in the proximal capitate. Patient was advised orthopedic referral. Blood work that have requested has not been done yet.PAtient states he is not in insulin [facility] Medical History BERNARD positive BPH (benign prostatic hyperplasia) Brain tumor Calcaneal spur, right COPD (chronic obstructive pulmonary disease) Diabetes mellitus with hyperglycemia Erectile dysfunction Essential hypertension GERD (gastroesophageal reflux disease) Grand mal seizure disorder History of carpal tunnel syndrome Hypercholesterolemia Inguinal hernia, bilateral Insomnia Lipoma of abdominal wall Migraine Obesity (BMI 30-39.9) Obstructive sleep apnea Osteoarthritis Pulmonary nodule RLS (restless legs syndrome) Skin cyst Stroke Tennis elbow Testicular pain Vitamin B12 deficiency Vitamin D deficiency Surgical History History of diverticulosis History of elbow surgery History of partial gastrectomy History of right inguinal hernia repair Hx of brain surgery Hx of carpal tunnel repair Hx of colonoscopy Hx of foot surgery Hx of prostate biopsy Family History Father Diabetes Throat cancer Heart disease Mother Ovarian cancer Social History Household Members: Spouse Housing: Apartment Are you a primary home care specialist to a significant other at home: No Do you presently have visiting nurse or other home services: Yes ([facility]NA) Alcohol intake: never Patient Tobacco Use Status: Never used Tobacco e-Cigarette/Vaping Use: Never Used Second Hand Smoke Exposure: No Advance Directives Date on File: 06/13/21 service: No Current occupational status: retired Cognitive needs: No Hearing needs: No Vision needs: No Questionnaire PHQ-9 Over the last 2 weeks, how often have you been bothered by any of the following problems? 1. Little interest or pleasure in doing things: nearly every day 2. Feeling down, depressed, or hopeless: nearly every day 3. Trouble falling or staying asleep, or sleeping too much: nearly every day 4. Feeling tired or having little energy: nearly every day 5. Poor appetite or overeating: not at all 6. Feeling bad about yourself - or that you are a failure or have let yourself or your family down: not at all 7. Trouble concentrating on things, such as reading the newspaper or watching television: not at all 8. Moving or speaking so slowly that other people could have noticed. Or the opposite - being so fidgety or restless that you have been moving around a lot more than usual: not at all 9. Thoughts that you would be better off or of hurting yourself in some way: not at all Total score: 12 Depression Screening Interpretation: Positive Source: Developed by Drs. Bonifacio Disla, Orville Mcdonald and colleagues, with an educational jackson from [employer]. Thrive Questionnaire Date Thrive assessed: 12/03/22 AUDIT C Alcohol Use Questionnaire (AUDIT-C) 1. How often do you have a drink containing alcohol?: Monthly or less 2. How many drinks containing alcohol do you have on a typical day when you are drinking?: 1 or 2 3. How often do you have six or more drinks on one occasion?: Never Total Score: 1 LANA-7 AMB Questionnaire LANA-7 Date LANA - 7 assessed: 12/03/22 Source: Developed by Drs. Bonifacio Disla, Orville Mcdonald and colleagues, with an educational jackson from [employer]. Physical exam (Primary Care) Vital Signs: Last Vital Signs Pulse 82 03/13/23 09:33 BP 118/70 03/13/23 09:33 Pulse Ox 98 03/13/23 09:33 Oxygen Delivery Method Room Air 03/13/23 09:33 BMI result Body Mass Index 30.2 Tobacco/Smoking Status: Tobacco use Status Tobacco use date assessed 12/03/22 03/13/23 09:35 Patient Tobacco Use Status Never used Tobacco 03/13/23 09:35 e-Cigarette/Vaping Use Never Used 03/13/23 09:35 PHQ-9: PHQ-9 Score PHQ-9: Total score 12 03/13/23 09:40 Depression Screening Interpretation: Positive Thrive Assessment: Date of Thrive Assessment Date Thrive assessed 12/03/22 03/13/23 09:35 Const General: alert; No acute distress Eyes Conjunctivae: conjunctivae normal Resp Auscultation: clear to auscultation bilaterally Cardio Rate: regular rate Rhythm: regular rhythm GI Inspection: Yes normal to inspection Extrem General: Yes normal to inspection and No edema Results AMB Hemoglobin A1c AMB Hemoglobin A1c 8.8 % Last Edit by Luh Hill CMA on 03/13/23 09:49 Assessment and Plan Assessment & Plan (1) Diabetes mellitus with hyperglycemia: Code(s): E11.65 - Type 2 diabetes mellitus with hyperglycemia Qualifiers: Diabetes mellitus type: type 2 Diabetes mellitus penitentiary insulin use: with penitentiary use Qualified Code(s): E11.65 - Type 2 diabetes mellitus with hyperglycemia; Z79.4 - half-way (current) use of insulin Plan: Decrease the amount of carbohydrate intake, pasta, bread, rice and potatoes are all sugar and that is aside from all the sweet stuff, remember that fruits are good but they are Sweet also. Hemoglobin A1c goal of less than 7.0. Patient is on Lantus at 40 units once a day metformin a 1000 mg twice a day and Trulicity once a week (2) Essential hypertension: Code(s): I10 - Essential (primary) hypertension Plan: Continue with blood pressure medication. Decrease salt intake and exercise patient takes lisinopril 2.5 mg once a day (3) GERD (gastroesophageal reflux disease): Code(s): K21.9 - Gastro-esophageal reflux disease without esophagitis Plan: Avoid the foods that causes that usually spicy foods, tomato products, juices, coffee, soda and foods that your sensitive to. After eating do not lie down, allow 3-4 hours before in lie down. And keep the head of bed above 30 degrees to avoid the acid from going up. (4) Obesity (BMI 30-39.9): Code(s): E66.9 - Obesity, unspecified Plan: Diet and exercise (5) Obstructive sleep apnea: Comment: decline CPAP (03/2021) Code(s): G47.33 - Obstructive sleep apnea (adult) (pediatric) Plan: Discussed importance of having the CPAP (6) Hypercholesterolemia: Code(s): E78.00 - Pure hypercholesterolemia, unspecified Plan: Avoid fried foods, chicken skin, eggs, butter margarine, pastries and meat. Be it pork or beef they have a lot of cholesterol LDL goal of less than 70 and triglyceride of less than 150 patient is on atorvastatin 40 mg at bedtime (7) Acute CVA (cerebrovascular accident): Code(s): I63.9 - Cerebral infarction, unspecified Plan: Control the cholesterol, weight, blood pressure, diabetes (8) Recurrent major depression: Comment: suicidal ideation 05/2012 Code(s): F33.9 - Major depressive disorder, recurrent, unspecified Plan: Continue with counseling and therapy (9) Anemia: Code(s): D64.9 - Anemia, unspecified Qualifiers: Anemia type: unspecified type Qualified Code(s): D64.9 - Anemia, unspecified Plan: Anemia of chronic disease (10) Right wrist pain: Comment: January 2023 x-ray degenerative subarticular sclerosis and subarticular cystic change in the proximal capitate. * Minimal osteoarthrosis of first carpometacarpal joint and moderate osteoarthrosis of the second metacarpophalangeal joint. 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 Changed From insulin glargine (Lantus Solostar U-100 Insulin) 40 units (0.4 mL) subcut DAILY 30 days 12 mL 3RF E11.65 - Type 2 diabetes mellitus with hyperglycemia To insulin glargine (Lantus Solostar U-100 Insulin) 10 units (0.1 mL) subcut DAILY 30 days 3 mL 3RF E11.65 - Type 2 diabetes mellitus with hyperglycemia Refilled cyclobenzaprine 10 mg PO TID PRN 10 tabs 0RF muscle spasm E11.65 - Type 2 diabetes mellitus with hyperglycemia, Z79.4 - half-way (current) use of insulin Coding Level of Care Code Est Pt Level 4 (26023) Diagnoses Diabetes mellitus with hyperglycemia E11.65; Z79.4 Diabetes mellitus type: type 2 Diabetes mellitus meterman insulin use: with penitentiary use Essential hypertension I10 GERD (gastroesophageal reflux disease) K21.9 Obesity (BMI 30-39.9) E66.9 Obstructive sleep apnea G47.33 Hypercholesterolemia E78.00 Acute CVA (cerebrovascular accident) I63.9 Recurrent major depression F33.9 Anemia D64.9 Anemia type: unspecified type Right wrist pain M25.531 Primary osteoarthritis, right wrist M19.031
== END 2023-03-13 10:06 | disposition home or self-care (01) ==
PROVIDERS: Visit Provider Internal Medicine
DX: E11.65 Type 2 diabetes mellitus with hyperglycemia (principal); Z79.4 Long term (current) use of insulin; I10 Essential (primary) hypertension; K21.9 Gastro-esophageal reflux disease without esophagitis; G47.33 Obstructive sleep apnea (adult) (pediatric)
CPT/HCPCS: 83036; 99214

== ENCOUNTER 2023-03-26 09:02 | Outpatient (AMB) | payer OTHER, SELFPAY ==
[2023-03-26 09:06] VITALS: BP 102/64; PULSE 83; BMI 30.3
--- NOTE | 2023-03-26 09:06 | MHC.OFFVIS ---
Intake Vital Signs 03/26/23 09:06 Height 5 ft 4 in Weight 176 lb 12.972 oz BMI 30.3 BP 102/64 Blood Pressure Location Lt brachial Position Sitting Pulse 83 Pulse Source Pulse Oximeter Intake Visit Reasons: DM2, previously anas Intake Note: New patient to Dr. Ocasio present today for Type 2 Diabetes Mellitus. Previously followed by PCP and Becca Bolden. 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 [place] Allergy (Unknown, Uncoded 03/13/23 09:33) Unknown MOTRIN Allergy (Unknown, Uncoded 03/13/23 09:33) hives Medication List - Last Reconciled 03/26/23 by Bonifacio Ocasio MD acetaminophen (Tylenol) 650 mg (2 x 325 mg) PO Q6H PRN albuterol sulfate 90 mcg/actuation (Ventolin HFA) 2 puffs PO Q4-6H PRN amitriptyline 25 mg PO BEDTIME aspirin 81 mg PO DAILY atorvastatin 40 mg PO BEDTIME blood sugar diagnostic (FreeStyle Lite Strips) As directed check the BS TID blood sugar diagnostic (OneTouch Ultra Test strips) test 3 times per day blood-glucose meter (OneTouch Ultra2 Meter) test 3 times per day blood-glucose meter (FreeStyle Lite Meter kit) As directed check the BS TID cholecalciferol (vitamin D3) 2,000 units PO DAILY cyclobenzaprine 10 mg PO TID PRN diclofenac sodium 1% (Voltaren Arthritis Pain) 2 grams topical QID dulaglutide 0.75 mg (0.5 mL) subcut QWEEK 90 days flash glucose scanning reader (FreeStyle Scott 2 [place]) As directed flash glucose scanning reader (FreeStyle Scott 14 Day [place]) As directed flash glucose sensor (FreeStyle Scott 14 Day Sensor kit) As directed flash glucose sensor (FreeStyle Scott 2 Sensor kit) As directed fluticasone furoate-vilanterol 200-25 mcg/dose (Breo Ellipta) 1 inh inhalation DAILY gabapentin 100 mg PO BID insulin glargine (Lantus Solostar U-100 Insulin) 10 units (0.1 mL) subcut DAILY 30 days lancets (FreeStyle Lancets) As directed check BS TID lancets (stiQRdTouch UltraSoft 2 Lancet) As directed lidocaine 5% (Lidoderm) 2 patches topical DAILY lisinopril 2.5 mg PO DAILY 90 days meclizine 25 mg PO TID PRN metformin 1,000 mg PO BID 90 days montelukast (Singulair) 10 mg PO BEDTIME 90 days nebulizer accessories As directed nebulizers (Compact Compressor Nebulizer) As directed omeprazole 20 mg PO DAILY 90 days pen needle, diabetic (BD Ultra-Fine Mini Pen Needle) As directed Inject LAntus 10 u QD polyethylene glycol 3350 (Miralax) 17 grams PO DAILY prednisone 40 mg (2 x 20 mg) PO DAILY 5 days sertraline 100 mg PO DAILY 90 days tramadol 50 mg PO BID PRN 30 days triamcinolone acetonide 0.5% 1 appl topical BID HPI HPI Comments History of Present Illness Details Patient is a 73-year-old male with DM type 2 diagnosed in his 40s or 50s, who presents for tele health visit for the continued management of diabetes. Patient was last seen on 01/16/21 by Becca Bolden NP i. Past medical history:DM2, COPD, epilipesy, cataracts Micro and macrovascular complications: +PVD. Diabetes medications: Lantus 10 units, Trulicity 0.75 mg/dl Metformin 1000 mg twice a day, Symptoms reported: at night cramping in lower extremities Hypoglycemia: No . Hyperglycemia: denies urinary frequency, +polydypsia Blood glucose monitoring: Glucometer download shows he is checking his point cares 1 to 2 times a day. Ranges 97 to 279 with average glucose of 172. 60% range with 40% hyperglycemia and no hypoglycemia Diet: 1-3 meals/day. Drinks throughout day: water and diet soda. Exercise: limited Seeing optho today All of family has Type 2 DM Laboratory Tests 11/06/20 11/06/20 11/06/20 08:31 08:31 08:31 Creatinine 1.22 Estimated GFR 59 Hemoglobin A1c % 11.6 Triglycerides 73 Cholesterol 122 LDL Cholesterol, C alc 60 HDL Cholesterol 48 TSH 1.74 Microalb/Creat Rat io TNP [facility] Medical History BECCA positive BPH (benign prostatic hyperplasia) Brain tumor Calcaneal spur, right COPD (chronic obstructive pulmonary disease) Diabetes mellitus with hyperglycemia Erectile dysfunction Essential hypertension GERD (gastroesophageal reflux disease) Grand mal seizure disorder History of carpal tunnel syndrome Hypercholesterolemia Inguinal hernia, bilateral Insomnia Lipoma of abdominal wall Migraine Obesity (BMI 30-39.9) Obstructive sleep apnea Osteoarthritis Pulmonary nodule RLS (restless legs syndrome) Skin cyst Stroke Tennis elbow Testicular pain Vitamin B12 deficiency Vitamin D deficiency Surgical History History of diverticulosis History of elbow surgery History of partial gastrectomy History of right inguinal hernia repair Hx of brain surgery Hx of carpal tunnel repair Hx of colonoscopy Hx of foot surgery Hx of prostate biopsy Family History Father Diabetes Throat cancer Heart disease Mother Ovarian cancer Social History Household Members: Spouse Housing: Apartment Are you a primary medicare nurse to a significant other at home: No Do you presently have visiting nurse or other home services: Yes ([facility]NA) Alcohol intake: never Patient Tobacco Use Status: Never used Tobacco e-Cigarette/Vaping Use: Never Used Second Hand Smoke Exposure: No Advance Directives Date on File: 06/13/21 service: No Current occupational status: retired Cognitive needs: No Hearing needs: No Vision needs: No Physical Exam Vital Signs: Last Vital Signs Pulse 83 03/26/23 09:06 BP 102/64 03/26/23 09:06 BMI result Body Mass Index 30.3 Absence of Cushingoid features. Absence of acromegalic features. Neck exam reveals nl size thyroid about 15 gms. No thyroid nodules palpable. No carotid bruits present. Lungs CTA. Heart S1 S2, Reg R/R. No M/R/ G. Skin exam reveals absence of vitiligo or acanthosis nigricans. Abdominal exam reveals Soft NT/ND with NA BS. No organomegaly present. Neck Other: . Extrem Other: Visual exam of foot performed. No ulcerations or open lesions. No onchomycosis, no callouses.Pulses 2 + distally Sensation intact to monofilament exam. 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 Plan is to increase the Trulicity to 1.5 mg q.weekly if tolerated. Also have the patient check his point cares pre and post meals. Will talk to the patient about using a freestyle Scott sensor and will try to arrange to get the patient a freestyle Scott 2. Were advised patient to go for lipid profile microalbumin to creatinine ratio number ordered by patient's primary care provider. Will send patient ict educator and dialysis social worker. 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
[2023-03-26 09:20] LABS: Glucose, Whole Blood 130 mg/dL (60-115)
== END 2023-03-26 09:39 | disposition home or self-care (01) ==
PROVIDERS: PCP Internal Medicine; Visit Provider Internal Medicine Endocrinology, Diabetes & Metabolism
DX: E11.65 Type 2 diabetes mellitus with hyperglycemia (principal); Z79.4 Long term (current) use of insulin
CPT/HCPCS: 99214

== ENCOUNTER → 2023-03-26 09:02 | Outpatient (BNVA) | payer OTHER, SELFPAY | PROVIDERS: Visit Provider Internal Medicine Endocrinology, Diabetes & Metabolism | DX: E11.65 Type 2 diabetes mellitus with hyperglycemia (principal); Z79.4 Long term (current) use of insulin | CPT/HCPCS: 82947; 99212 ==

== ENCOUNTER 2023-04-16 13:28 | Outpatient (AMB) | payer OTHER, SELFPAY ==
[2023-04-16 13:30] VITALS: BP 100/60; PULSE 86; O2SAT 96; BMI 29.7
--- NOTE | 2023-04-16 13:30 | A.OFFPC_ITS ---
Vital Signs 04/16/23 13:30 Height 5 ft 4 in Weight 173 lb BMI 29.7 BP 100/60 Blood Pressure Location Lt brachial Position Sitting Pulse 86 Pulse Source Pulse Oximeter Temp Source Skin Pulse Oximetry (%) 96 Oxygen Delivery Method Room Air Intake Visit Reasons: 1 month f/u Director Software Quality Assurance Required: No Allergies aspirin [ASPIRIN] Allergy (Intermediate, Verified 04/16/23 13:31) RASH WITH HIGH DOSES Penicillins Allergy (Mild, Verified 04/16/23 13:31) HIVES phenytoin [From Dilantin] Allergy (Mild, Verified 04/16/23 13:31) BURNING SENSATION IN BODY butalbital [BUTALBITAL] Allergy (Unknown, Verified 04/16/23 13:31) HIVES thimerosal [THIMEROSAL] Allergy (Unknown, Verified 04/16/23 13:31) UNKNOWN doxycycline Adverse Reaction (Intermediate, Verified 04/16/23 13:31) penile rash? [place] Allergy (Unknown, Uncoded 04/16/23 13:31) Unknown MOTRIN Allergy (Unknown, Uncoded 04/16/23 13:31) hives Tobacco use date assessed: 04/16/23 Fall risk assessment: No Falls in past year Last assessed Fall Risk: 04/16/23 Dental Screening Dental Screen Date: 04/16/23 Did you have a dental visit in the last 12 months?: No Did you have a dental problem in the last 6 months where you did not have access to dental care?: No Was dental information given to patient?: Patient has dentist HPI 1 month f/u HPI Details 73-year-old obese male with uncontrolled diabetes mellitus hypertension GERD obstructive sleep apnea hypercholesterolemia history of CVA recurrent major depression coming in for follow-up last seen in March 2023. Patient is here for follow-up. Patient has been referred to Endocrinology and has incre ased Trulicity does. Patient has been advised to get the blood work done and this has not been done cholesterol was last tested in 2020. stressed right now and has section 8 and so has electricity patient complains of lower abdominal pain and have as vague answers of occasional diarrhea occasional constipation occasional problems with urination. As for the asthma patient uses the inhalers about twice a week only. [facility] Medical History BERNARD positive BPH (benign prostatic hyperplasia) Brain tumor Calcaneal spur, right COPD (chronic obstructive pulmonary disease) Diabetes mellitus with hyperglycemia Erectile dysfunction Essential hypertension GERD (gastroesophageal reflux disease) Grand mal seizure disorder History of carpal tunnel syndrome Hypercholesterolemia Inguinal hernia, bilateral Insomnia Lipoma of abdominal wall Migraine Obesity (BMI 30-39.9) Obstructive sleep apnea Osteoarthritis Pulmonary nodule RLS (restless legs syndrome) Skin cyst Stroke Tennis elbow Testicular pain Vitamin B12 deficiency Vitamin D deficiency Surgical History History of diverticulosis History of elbow surgery History of partial gastrectomy History of right inguinal hernia repair Hx of brain surgery Hx of carpal tunnel repair Hx of colonoscopy Hx of foot surgery Hx of prostate biopsy Family History Father Diabetes Throat cancer Heart disease Mother Ovarian cancer Social History Household Members: Spouse Housing: Apartment Are you a primary medicare specialist to a significant other at home: No Do you presently have visiting nurse or other home services: Yes ([facility]) Alcohol intake: never Patient Tobacco Use Status: Never used Tobacco e-Cigarette/Vaping Use: Never Used Second Hand Smoke Exposure: No Advance Directives Date on File: 06/13/21 service: No Current occupational status: retired Cognitive needs: No Hearing needs: No Vision needs: No Questionnaire PHQ-9 Over the last 2 weeks, how often have you been bothered by any of the following problems? 1. Little interest or pleasure in doing things: nearly every day 2. Feeling down, depressed, or hopeless: nearly every day 3. Trouble falling or staying asleep, or sleeping too much: nearly every day 4. Feeling tired or having little energy: nearly every day 5. Poor appetite or overeating: not at all 6. Feeling bad about yourself - or that you are a failure or have let yourself or your family down: not at all 7. Trouble concentrating on things, such as reading the newspaper or watching television: not at all 8. Moving or speaking so slowly that other people could have noticed. Or the opposite - being so fidgety or restless that you have been moving around a lot more than usual: not at all 9. Thoughts that you would be better off or of hurting yourself in some way: not at all Total score: 12 Depression Screening Interpretation: Positive Source: Developed by Drs. Bonifacio Disla, Orville Mcdonald and colleagues, with an educational jackson from [employer]. Thrive Questionnaire Date Thrive assessed: 12/03/22 AUDIT C Alcohol Use Questionnaire (AUDIT-C) 1. How often do you have a drink containing alcohol?: Monthly or less 2. How many drinks containing alcohol do you have on a typical day when you are drinking?: 1 or 2 3. How often do you have six or more drinks on one occasion?: Never Total Score: 1 LANA-7 AMB Questionnaire LANA-7 Date LANA - 7 assessed: 12/03/22 Source: Developed by Drs. Bonifacio Disla, Orville Mcdonald and colleagues, with an educational jackson from [employer]. Physical exam (Primary Care) Vital Signs: Last Vital Signs Pulse 86 04/16/23 13:30 BP 100/60 04/16/23 13:30 Pulse Ox 96 04/16/23 13:30 Oxygen Delivery Method Room Air 04/16/23 13:30 BMI result Body Mass Index 29.7 Tobacco/Smoking Status: Tobacco use Status Tobacco use date assessed 04/16/23 04/16/23 13:32 Patient Tobacco Use Status Never used Tobacco 04/16/23 13:32 e-Cigarette/Vaping Use Never Used 04/16/23 13:32 PHQ-9: PHQ-9 Score PHQ-9: Total score 12 04/16/23 13:32 Depression Screening Interpretation: Positive Thrive Assessment: Date of Thrive Assessment Date Thrive assessed 12/03/22 04/16/23 13:32 Const General: alert; No acute distress Eyes Conjunctivae: conjunctivae normal Resp Auscultation: clear to auscultation bilaterally Cardio Rate: regular rate Rhythm: regular rhythm GI Other: Vague tenderness on the right upper quadrant but no rebound otherwise no guarding. Extrem General: Yes normal to inspection and No edema Assessment and Plan Assessment & Plan (1) Diabetes mellitus with hyperglycemia: Code(s): E11.65 - Type 2 diabetes mellitus with hyperglycemia Qualifiers: Diabetes mellitus type: type 2 Diabetes mellitus retirement insulin use: with retirement use Qualified Code(s): E11.65 - Type 2 diabetes mellitus with hyperglycemia; Z79.4 - correction (current) use of insulin Plan: Decrease the amount of carbohydrate intake, pasta, bread, rice and potatoes are all sugar and that is aside from all the sweet stuff, remember that fruits are good but they are Sweet also. Hemoglobin A1c goal of less than 7.0. Patient has been following up with endocrinology continue with metformin a 1000 mg twice a day Lantus at 10 units once a day Trulicity increased to 1.5 mg once a week. Patient has the [employer] and brought patient to nurse navigator for teaching on attachment. (2) Obstructive sleep apnea: Comment: decline CPAP (03/2021) Code(s): G47.33 - Obstructive sleep apnea (adult) (pediatric) Plan: Discussed importance of sleep apnea treatment (3) Hypercholesterolemia: Code(s): E78.00 - Pure hypercholesterolemia, unspecified Plan: Avoid fried foods, chicken skin, eggs, butter margarine, pastries and meat. Be it pork or beef they have a lot of cholesterol LDL goal of less than 100 and triglyceride of less than 150 patient is on atorvastatin 40 mg once a day patient is advised to get blood work done (4) Essential hypertension: Code(s): I10 - Essential (primary) hypertension Plan: Continue with blood pressure medication. Decrease salt intake and exercise patient on lisinopril 2.5 mg once a day. (5) RUQ abdominal pain: Code(s): R10.11 - Right upper quadrant pain Plan: Vague right upper quadrant pain will do an ultrasound as well as urinalysis. Orders: Orders Comprehensive Met. Panel Today E11.65 - Type 2 diabetes mellitus with hyperglycemia, Z79.4 - correction (current) use of insulin Microalbumin, Random (w Creat) Today E11.65 - Type 2 diabetes mellitus with hyperglycemia, Z79.4 - correction (current) use of insulin Free T4 (Free Thyroxine) Today E11.65 - Type 2 diabetes mellitus with hyperglycemia, Z79.4 - correction (current) use of insulin Vitamin B12 and Folate Today E11.65 - Type 2 diabetes mellitus with hyperglycemia, Z79.4 - extermination inspector (current) use of insulin US abdomen complete Today R10.11 - Right upper quadrant pain, R79.89 - Other specified abnormal findings of blood chemistry Complete Blood Count Auto Diff Today E11.65 - Type 2 diabetes mellitus with hyperglycemia, Z79.4 - extermination inspector (current) use of insulin Creatinine Urine Today E11.65 - Type 2 diabetes mellitus with hyperglycemia, Z79.4 - extermination inspector (current) use of insulin Thyroid Stimulating Hormone Today E11.65 - Type 2 diabetes mellitus with hyperglycemia, Z79.4 - correction (current) use of insulin Lipid Panel Today E11.65 - Type 2 diabetes mellitus with hyperglycemia, E78.00 - Pure hypercholesterolemia, unspecified, Z79.4 - correction (current) use of insulin UA w Microscopic Today R10.11 - Right upper quadrant pain Medications: Refilled tramadol 50 mg PO BID 30 days PRN 60 tabs 1RF pain M54.12 - Radiculopathy, cervical region gabapentin 100 mg PO BID 180 caps 1RF E11.65 - Type 2 diabetes mellitus with hyperglycemia, Z79.4 - extermination inspector (current) use of insulin Discontinued prednisone Discontinued Reason: Doctor's Order 40 mg (2 x 20 mg) PO DAILY 5 days 10 tabs 0RF polyethylene glycol 3350 (Miralax) Discontinued Reason: Doctor's Order 17 grams PO DAILY 100 ea 1RF K59.00 - Constipation, unspecified Coding Level of Care Code Est Pt Level 4 (40484) Diagnoses Type 2 diabetes mellitus with hyperglycemia, with long-term current use of insulin E11.65; Z79.4 Diabetes mellitus type: type 2 Diabetes mellitus long term care phlebotomist insulin use: with retirement use Obstructive sleep apnea G47.33 Hypercholesterolemia E78.00 Essential hypertension I10 RUQ abdominal pain R10.11
== END 2023-04-16 14:25 | disposition home or self-care (01) ==
PROVIDERS: PCP Internal Medicine; Visit Provider Internal Medicine
DX: E11.65 Type 2 diabetes mellitus with hyperglycemia (principal); Z79.4 Long term (current) use of insulin; I10 Essential (primary) hypertension; G47.33 Obstructive sleep apnea (adult) (pediatric); E78.00 Pure hypercholesterolemia, unspecified; R10.11 Right upper quadrant pain
CPT/HCPCS: 99214

== ENCOUNTER 2023-04-28 10:53 | Outpatient (AMB) | payer OTHER, SELFPAY ==
--- NOTE | 2023-04-28 10:57 | MHC.OFFVIS ---
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 States pain is mainly by his base of thumb. Reports pain has been presents for 5 years and increases with squeezing and lifting motion . Patient has had CTR sx approx 5 yrs ago. Reports he had another surgery in right hand but isn't sure why . Hx of DM. Last A1C taken on 03/13/23 ~ 8.8. Allergies aspirin [ASPIRIN] Allergy (Intermediate, Verified 04/28/23 11:02) RASH WITH HIGH DOSES Penicillins Allergy (Mild, Verified 04/28/23 11:02) HIVES phenytoin [From Dilantin] Allergy (Mild, Verified 04/28/23 11:02) BURNING SENSATION IN BODY butalbital [BUTALBITAL] Allergy (Unknown, Verified 04/28/23 11:02) HIVES thimerosal [THIMEROSAL] Allergy (Unknown, Verified 04/28/23 11:02) UNKNOWN doxycycline Adverse Reaction (Intermediate, Verified 04/28/23 11:02) penile rash? [place] Allergy (Unknown, Uncoded 04/28/23 11:02) Unknown MOTRIN Allergy (Unknown, Uncoded 04/28/23 11:02) hives [facility] Medical History BERNARD positive BPH (benign prostatic hyperplasia) Brain tumor Calcaneal spur, right COPD (chronic obstructive pulmonary disease) Diabetes mellitus with hyperglycemia Erectile dysfunction Essential hypertension GERD (gastroesophageal reflux disease) Grand mal seizure disorder History of carpal tunnel syndrome Hypercholesterolemia Inguinal hernia, bilateral Insomnia Lipoma of abdominal wall Migraine Obesity (BMI 30-39.9) Obstructive sleep apnea Osteoarthritis Pulmonary nodule RLS (restless legs syndrome) Skin cyst Stroke Tennis elbow Testicular pain Vitamin B12 deficiency Vitamin D deficiency Surgical History History of diverticulosis History of elbow surgery History of partial gastrectomy History of right inguinal hernia repair Hx of brain surgery Hx of carpal tunnel repair Hx of colonoscopy Hx of foot surgery Hx of prostate biopsy Family History Father Diabetes Throat cancer Heart disease Mother Ovarian cancer Social History Household Members: Spouse Housing: Apartment Are you a primary health careers instructor to a significant other at home: No Do you presently have visiting nurse or other home services: Yes ([facility]) Alcohol intake: never Patient Tobacco Use Status: Never used Tobacco e-Cigarette/Vaping Use: Never Used Second Hand Smoke Exposure: No Advance Directives Date on File: 06/13/21 service: No Current occupational status: retired Cognitive needs: No Hearing needs: No Vision needs: No Physical Exam Vital Signs: BMI result Body Mass Index 29.7 Const General: cooperative, healthy appearing and no acute distress Orientation/consciousness: oriented to person and oriented to place HEENT Head: Yes normocephalic and Yes atraumatic Eyes EOM: EOMs intact bilaterally Resp Effort & Inspection: normal respiratory effort and able to speak in complete sentences Cardio Jugular venous distension: no JVD Skin General skin exam: turgor normal Rashes: no rashes Neuro General: oriented to person and oriented to place Extrem Other: Evaluation of right Upper Extremity: Neuro: Median, ulnar, radial nerves motor and sensory grossly intact with normal sensation to all digits. No thenar or intrinsic wasting. Vascular: Cap refill brisk. ROM: He can make a fist and he can extend all of his digits. No locking or catching He does have some arthritic changes in his digits Right wrist range of motion approximately 40 degrees of extension and approximately 30-40 degrees of flexion. Good prono-supination He does have some focal swelling over the dorsal radial aspect of his wrist with mild tenderness. Skin: He has a well-healed longitudinal scar over the dorsal aspect of his wrist. General: No eccymosis. No erythema or evidence of infection. Radiographs: Three views of the right wrist from 02/04/2023 were reviewed by me today in clinic. They show that he has had a proximal row carpectomy. The radio capitate joint appears to be preserved. Significant atherosclerosis. He has some early basal joint arthritis. Psych Appearance: grossly normal Affect: normal affect Attitude: cooperative Assessment & Plan Assessment & Plan (1) Status post proximal row carpectomy of wrist: Code(s): Z98.890 - Other specified postprocedural states (2) Arthritis of right wrist: Code(s): M19.031 - Primary osteoarthritis, right wrist Plan Assessment and plan: 1. Right wrist pain and swelling 2. Patient status post right proximal row carpectomy at [facility] in approximately 2018 3. Patient also status post right carpal tunnel release at [facility] in perhaps 2017 Normal sensation in median nerve distribution today. I educated the patient and his about this condition. We talked about the importance of activity modification. I reminded him that while his proximal row carpectomy help preserve motion and decreased his pain, he does not have a normal wrist. I reminded him that heavy or impact type activities are likely to cause him pain. It sounds like he has been doing a lot of this. He has braces at home to use when symptomatic. I educated him about steroid injections and how that can be used to decrease the pain he may have. At this point surgical options would likely involve a fairly large procedure like a total wrist arthrodesis which would severely limit his right wrist range of motion and use. He understands that a wrist arthrodesis is only to be undertaken if absolutely necessary. His was grateful for the information. He is not interested in an injection at this time. He will follow up p.r.n.. Coding Level of Care Code New Pt Level 3 (29194) Diagnoses Status post proximal row carpectomy of wrist Z98.890 Arthritis of right wrist M19.031
[2023-04-28 10:58] VITALS: BMI 29.7
== END 2023-04-28 11:42 | disposition home or self-care (01) ==
PROVIDERS: PCP Internal Medicine; Visit Provider Orthopaedic Surgery
DX: M19.031 Primary osteoarthritis, right wrist (principal)
CPT/HCPCS: 99203

== ENCOUNTER → 2023-04-28 10:53 | Outpatient (BNVA) | payer SELFPAY | PROVIDERS: PCP Internal Medicine; Visit Provider Orthopaedic Surgery ==

== ENCOUNTER 2023-06-12 09:25 | Outpatient (REF) | payer OTHER, SELFPAY ==
--- NOTE | ~2023-06-12 | US_ITS ---
EXAMINATION: US ABDOMEN COMPLETE CLINICAL INFORMATION: Other specified abnormal findings of blood chemistry. COMPARISON: CT abdomen and pelvis 04/29/2022. Ultrasound abdomen complete 08/23/2019. TECHNIQUE: Real-time imaging of the abdominal viscera. Exam is somewhat limited by large midline scar. FINDINGS: PANCREAS: Pancreas was obscured by bowel gas and could not be evaluated. ABDOMINAL AORTA: The proximal aorta could not be seen but the mid abdominal aorta and IVC appeared unremarkable. INFERIOR VENA CAVA: Visualized portions are normal. LIVER: The liver is normal in size. The liver contour is normal. There is minimally increased liver parenchymal echogenicity suggesting hepatic steatosis. No focal hepatic lesion. There is no intrahepatic biliary duct dilatation seen. GALLBLADDER: The gallbladder is physiologically distended without evidence of stones, sludge, polyps, wall thickening or pericholecystic fluid. COMMON BILE DUCT: Normal in caliber measuring 0.5 cm in diameter. RIGHT KIDNEY: No hydronephrosis. No renal calculi or focal parenchymal lesions. The kidney measures 9.2 cm in maximum dimension. LEFT KIDNEY: No hydronephrosis. No renal calculi or focal parenchymal lesions. The kidney measures 9.5 cm in maximum dimension. SPLEEN: Normal. The spleen measures 11.1 cm in maximum dimension. FREE FLUID: None. US/US abdomen complete IMPRESSION: Mildly increased hepatic echogenicity suggesting hepatic steatosis.
== END 2023-06-12 09:26 | disposition home or self-care (01) ==
LOC: HO.US 09:25
PROVIDERS: PCP Internal Medicine; Visit Provider Internal Medicine
DX: R10.11 Right upper quadrant pain (principal); R79.89 Other specified abnormal findings of blood chemistry
CPT/HCPCS: 76700

== ENCOUNTER 2023-06-19 15:53 | Outpatient (AMB) | payer OTHER, SELFPAY ==
--- NOTE | 2023-06-19 15:56 | MHC.PC.OV ---
Vital Signs 06/19/23 15:58 Height 5 ft 4 in Weight 176 lb BMI 30.2 BP 124/78 Blood Pressure Location Lt brachial Position Sitting Pulse 86 Pulse Source Pulse Oximeter Pulse Oximetry (%) 97 Oxygen Delivery Method Room Air Intake Visit Reasons: seizure Intake Note: Patient is here to follow up on seizure which happened this morning. Mangle Catcher Required: No Staff Home Therapy Rn: Present Accompanied by: Spouse Allergies aspirin [ASPIRIN] Allergy (Intermediate, Verified 06/19/23 16:35) RASH WITH HIGH DOSES Penicillins Allergy (Mild, Verified 06/19/23 16:35) HIVES phenytoin [From Dilantin] Allergy (Mild, Verified 06/19/23 16:35) BURNING SENSATION IN BODY butalbital [BUTALBITAL] Allergy (Unknown, Verified 06/19/23 16:35) HIVES thimerosal [THIMEROSAL] Allergy (Unknown, Verified 06/19/23 16:35) UNKNOWN doxycycline Adverse Reaction (Intermediate, Verified 06/19/23 16:35) penile rash? [place] Allergy (Unknown, Uncoded 06/19/23 16:09) Unknown MOTRIN Allergy (Unknown, Uncoded 06/19/23 16:09) hives Medication List - Last Reconciled 06/19/23 by REEMA Lan acetaminophen (Tylenol) 650 mg (2 x 325 mg) PO Q6H PRN albuterol sulfate 90 mcg/actuation (Ventolin HFA) 2 puffs PO Q4-6H PRN amitriptyline 25 mg PO BEDTIME aspirin 81 mg PO DAILY atorvastatin 40 mg PO BEDTIME blood sugar diagnostic ([employer]uch Ultra Test strips) test 3 times per day blood-glucose meter (FlybitsTouch Ultra2 Meter) test 3 times per day cholecalciferol (vitamin D3) 2,000 units PO DAILY cyclobenzaprine 10 mg PO TID PRN diclofenac sodium 1% (Voltaren Arthritis Pain) 2 grams topical QID dulaglutide (Trulicity) 1.5 mg (0.5 mL) subcut QWEEK fluticasone furoate-vilanterol 200-25 mcg/dose (Breo Ellipta) 1 inh inhalation DAILY gabapentin 100 mg PO BID insulin glargine (Lantus Solostar U-100 Insulin) 10 units (0.1 mL) subcut DAILY 30 days lancets (OneTouch UltraSoft 2 Lancet) As directed lisinopril 2.5 mg PO DAILY 90 days meclizine 25 mg PO TID PRN metformin 1,000 mg PO BID 90 days montelukast (Singulair) 10 mg PO BEDTIME 90 days nebulizer accessories As directed nebulizers (Compact Compressor Nebulizer) As directed omeprazole 20 mg PO DAILY 90 days pen needle, diabetic (BD Ultra-Fine Mini Pen Needle) As directed Inject LAntus 10 u QD sertraline 100 mg PO DAILY 90 days tramadol 50 mg PO BID PRN 30 days triamcinolone acetonide 0.5% 1 appl topical BID Tobacco use date assessed: 06/19/23 Fall risk assessment: 2 + Falls in past year Last assessed Fall Risk: 06/19/23 Dental Screening Dental Screen Date: 06/19/23 Did you have a dental visit in the last 12 months?: No Did you have a dental problem in the last 6 months where you did not have access to dental care?: No Was dental information given to patient?: No HPI seizure HPI Details Patient is a 73-year-old male who presents today for the same day visit due to seizure this morning that lasted [address] Leal. Seizure was witnessed by his , reported that she splashed him with cold water which helped to brake seizure. Patient does have history of seizures 7 years ago, history of antiseizure medications in the past, not on medications for the past 7 years. History of left-sided brain tumor removal in 1990, patient reported chronic left-sided headaches although he reports worsening squeezing sensation left-sided head after this seizure, currently 6/10 scale pain. Patient reports that he feels tired, also reported that he is more drowsy now compared to this morning. No shortness of breath or chest pain. Neurology visit 7 years ago. reports that he went to bed last night with a headache. [facility] Medical History Testicular pain Skin cyst Stroke Lipoma of abdominal wall History of carpal tunnel syndrome BERNARD positive Inguinal hernia, bilateral BPH (benign prostatic hyperplasia) Brain tumor Hypercholesterolemia Obstructive sleep apnea Vitamin D deficiency Obesity (BMI 30-39.9) Vitamin B12 deficiency GERD (gastroesophageal reflux disease) Grand mal seizure disorder Erectile dysfunction Osteoarthritis COPD (chronic obstructive pulmonary disease) Tennis elbow Calcaneal spur, right RLS (restless legs syndrome) Pulmonary nodule Insomnia Essential hypertension Diabetes mellitus with hyperglycemia Migraine Surgical History Hx of carpal tunnel repair History of diverticulosis Hx of colonoscopy History of elbow surgery Hx of foot surgery Hx of brain surgery History of partial gastrectomy History of right inguinal hernia repair Hx of prostate biopsy Family History Father Diabetes Throat cancer Heart disease Mother Ovarian cancer Social History Household Members: Spouse Housing: Apartment Are you a primary caretaker to a significant other at home: No Do you presently have visiting nurse or other home services: Yes ([facility]) Alcohol intake: never Patient Tobacco Use Status: Never used Tobacco e-Cigarette/Vaping Use: Never Used Second Hand Smoke Exposure: No Advance Directives Date on File: 06/13/21 service: No Current occupational status: retired Cognitive needs: No Hearing needs: No Vision needs: No Questionnaire Thrive Questionnaire Date Thrive assessed: 12/03/22 LANA-7 AMB Questionnaire LANA-7 Date LANA - 7 assessed: 12/03/22 Source: Developed by Drs. Bonifacio Disla, Cristine Card, Orville Morley and colleagues, with an educational jackson from [employer]. Review of Systems Const Denies body aches, Denies chills, Reports fatigue, Denies fever(s) and Reports headache(s) ENT Denies dizziness, Denies otalgia, Reports headache(s), Denies nasal discharge, Denies sinus pain and Denies sore throat Card Denies chest pain, Denies lightheadedness and Denies dyspnea Resp Denies cough, Denies dyspnea and Denies wheezing GI Denies abdominal pain Skin/Breast Denies rash Neuro Details: Seizure this morning Denies dizziness and Reports headache(s) Endo Reports fatigue Aller/Immun Denies wheezing Physical exam (Primary Care) Vital Signs: Last Vital Signs Pulse 86 06/19/23 15:58 BP 124/78 06/19/23 15:58 Pulse Ox 97 06/19/23 15:58 Oxygen Delivery Method Room Air 06/19/23 15:58 BMI result Body Mass Index 30.2 Tobacco/Smoking Status: Tobacco use Status Tobacco use date assessed 06/19/23 06/19/23 16:05 Patient Tobacco Use Status Never used Tobacco 06/19/23 16:05 e-Cigarette/Vaping Use Never Used 06/19/23 16:05 Thrive Assessment: Date of Thrive Assessment Date Thrive assessed 12/03/22 06/19/23 16:05 Const Other: Appears drowsy General: cooperative and no acute distress Orientation/consciousness: oriented to person and oriented to place HENVT Head: Yes normocephalic and Yes atraumatic Throat: Yes posterior oropharynx normal Eyes General: appearance normal, both eyes and all related structures Pupils: Equal, round and reactive pupils present EOM: EOM abnormal Neck Neck: Yes normal visual inspection, Yes full ROM and Yes no lymphadenopathy Resp Effort & Inspection: normal respiratory effort and able to speak in complete sentences Auscultation: clear to auscultation bilaterally, no crackles, no rales, no rhonchi and no wheezes Cardio Rate: regular rate Rhythm: regular rhythm Heart sounds: S1 normal heart sound present and S2 normal heart sound present GI Auscultation: normal bowel sounds Skin General skin exam: no rashes or lesions noted Neuro General: oriented to person and oriented to place Cranial nerves: Yes Equal, round and reactive pupils present, Yes Ability to bilaterally rotate head present and Yes Ability to bilaterally elevate shoulders present Gait exam (Neuro): Normal gait present Motor exam (neuro): 5/5 motor strength present throughout Extrem General: Yes full ROM Assessment and Plan Assessment & Plan (1) Seizure: Code(s): R56.9 - Unspecified convulsions Plan: See HPI for details Patient drowsy, EOM abnormal, patient reports worsening squeezing sensation left-sided head reports that patient is more drowsy compared to this morning Advised emergency department for an evaluation and treatment, patient and his agreed with the plan. Patient declined ambulance, his will bring him to [place] emergency department for an evaluation now. Report called in to [place] ED RN. Follow-up with PCP after hospital discharge. Coding Level of Care Code Est Pt Level 3 (08515) Diagnoses Seizure R56.9
[2023-06-19 15:58] VITALS: BP 124/78; PULSE 86; O2SAT 97; BMI 30.2
== END 2023-06-19 16:22 | disposition home or self-care (01) ==
PROVIDERS: PCP Internal Medicine; Visit Provider Nurse Practitioner Family
DX: R56.9 Unspecified convulsions (principal)
CPT/HCPCS: 99213

== ENCOUNTER 2023-06-19 16:27 | Emergency (ER) | payer OTHER, SELFPAY ==
--- NOTE | ~2023-06-19 | CT_ITS ---
EXAMINATION: CT HEAD WITHOUT CONTRAST CLINICAL INFORMATION: Headache, history of benign mass removal. COMPARISON: CT head 11/27/2022. TECHNIQUE: Contiguous axial imaging was performed from the skull base to vertex without intravenous administration of contrast. This CT examination was performed using dose optimization techniques as appropriate, variously including the following: *Automated exposure control *Adjustment of mA and/or kV according to patient size (this includes techniques or standardized protocols for targeted exams where dose is matched to indication/reason for exam; i.e. extremities or head) *Use of iterative reconstruction technique DLP: 675 mGy-cm FINDINGS: Encephalomalacia/gliosis in the left frontal lobe underlying the craniotomy bed, similar to priors. There is no evidence of acute intracranial hemorrhage or edematous territorial infarction. A few foci of hypoattenuation in the periventricular and deep white matter are consistent with mild microangiopathy. Chronic infarct in the left inferoposterior cerebellum. Proportional prominence of the ventricles and sulcal spaces. No evidence for obstructive hydrocephalus. No abnormal mass effect or midline shift. No extra-axial fluid collections. Redemonstration of left frontal craniotomy. No acute osseous or soft tissue abnormalities. Bilateral lens extraction. Partial opacification of ethmoid air cells, frontal sinuses and left sphenoidal sinus. Moderate mucosal thickening of the left greater than right maxillary sinus. The mastoids and middle ear cavities are clear. CT/CT head/brain wo IV con IMPRESSION: 1. No evidence of acute intracranial hemorrhage or edematous territorial infarction. 2. Encephalomalacia/gliosis in the left frontal lobe underlying the craniotomy bed, similar to priors. 3. Paranasal sinus disease. Correlate clinically for acute sinusitis.
[2023-06-19 16:36] VITALS: BP 129/70; PULSE 74; RESP 18; TEMP 36.8; O2SAT 99; BMI 30.2
--- NOTE | 2023-06-19 16:37 | ED.SEIZURE ---
HPI - Seizure General Chief Complaint: Seizure Stated Complaint: ?Sz sent from Dr dietz Time Seen by Provider: 06/19/23 16:49 Source: patient and family (, [place]) Mode of arrival: ambulatory Limitations: no limitations History of Present Illness HPI Narrative: 73-year-old male who was sent to the emergency department from his doctor's office for evaluation of lethargy after having a seizure earlier this morning. The patient has a history of seizure disorder but has not had a seizure in 7 years and has been off his medications for at least 5 years. Two weeks prior the patient had some dizziness and then was found on the floor by his . There was no witness to the fall and there was no witnessed seizure at that time. The patient's states she took the garbage out this morning and when she came back in the house she heard an unusual snoring sensation from the bedroom. She then went and saw that the patient was having a tonic clonic seizure similar to the seizures that he had in the past. The seizure lasted approximately 5 minutes. She states she splashed cold water on him which caused the seizure to break. The patient had a postictal period that lasted approximately 2 hours. Since the seizure the patient has not been feeling well he has been very tired, no appetite and lethargic. The states that in the past when he has had a seizure he has been very tired for at least 24 hours but he has had an appetite and has been able to eat and drink after his seizures. The patient was seen by the nurse practitioner and his provider's office who refer the patient to the emergency department for further evaluation. Patient is currently complaining of a headache over his entire head but worse on the left side. States that is a constant, squeezing/throbbing sensation which is 6/10 at its worst. He had associated nausea with no vomiting. He states he is feeling weak all over and just feeling tired. He was not sick prior to his seizure. Related Data Previous Rx's Medication Instructions Recorded diclofenac sodium 1 % topical gel 2 g topical QID #100 grams 06/21/21 (Voltaren Arthritis Pain) nebulizer accessories #1 ea 07/09/21 nebulizers (Compact Compressor #1 ea 07/09/21 Nebulizer) triamcinolone acetonide 0.5 % 1 appl topical BID #15 grams 08/22/21 topical cream amitriptyline 25 mg tablet 25 mg PO BEDTIME #90 tabs 12/03/22 aspirin 81 mg tablet,delayed 81 mg PO DAILY #90 tabs 12/03/22 release atorvastatin 40 mg tablet 40 mg PO BEDTIME #90 tabs 12/03/22 cholecalciferol (vitamin D3) 50 2,000 unit PO DAILY #90 caps 12/03/22 mcg (2,000 unit) capsule lisinopril 2.5 mg tablet 2.5 mg PO DAILY 90 days #90 tabs 12/03/22 metformin 1,000 mg tablet 1,000 mg PO BID 90 days #180 tabs 12/03/22 sertraline 100 mg tablet 100 mg PO DAILY 90 days #90 tabs 12/03/22 meclizine 25 mg tablet 25 mg PO TID PRN dizziness #60 tabs 01/12/23 blood sugar diagnostic (OneTouch #100 ea 01/14/23 Ultra Test strips) blood-glucose meter (OneTouch #1 ea 01/14/23 Ultra2 Meter) lancets 30 gauge (OneTouch #100 ea 01/14/23 UltraSoft 2 Lancet) albuterol sulfate 90 mcg/actuation 2 puff PO Q4-6H PRN for wheezing 01/20/23 aerosol inhaler (Ventolin HFA) #18 grams acetaminophen 325 mg capsule 650 mg (2 x 325 mg) PO Q6H PRN 02/04/23 (Tylenol) pain #30 caps cyclobenzaprine 10 mg tablet 10 mg PO TID PRN muscle spasm #10 03/13/23 tabs pen needle, diabetic 31 gauge x #100 ea 03/13/23 3/16 (BD Ultra-Fine Mini Pen Needle) gabapentin 100 mg capsule 100 mg PO BID #180 caps 04/16/23 tramadol 50 mg tablet 50 mg PO BID PRN pain 30 days #60 04/16/23 tabs dulaglutide 1.5 mg/0.5 mL 1.5 mg (0.5 mL) subcut QWEEK #2 mL 05/15/23 subcutaneous pen injector ([employer]) fluticasone furoate 200 1 inh inhalation DAILY #60 ea 05/31/23 mcg-vilanterol 25 mcg/dose inhalation powder (Breo Ellipta) montelukast 10 mg tablet 10 mg PO BEDTIME 90 days #90 tabs 06/03/23 (Singulair) omeprazole 20 mg capsule,delayed 20 mg PO DAILY 90 days #90 caps 06/03/23 release insulin glargine 100 unit/mL (3 10 unit (0.1 mL) subcut DAILY 30 06/15/23 mL) subcutaneous pen (Lantus days #3 mL Solostar U-100 Insulin) levetiracetam 500 mg tablet 500 mg PO Q12H #60 tabs 06/19/23 (Keppra) Allergies Allergy/AdvReac Type Severity Reaction Status Date / Time aspirin [ASPIRIN] Allergy Intermediate RASH WITH Verified 06/19/23 16:35 HIGH DOSES Penicillins Allergy Mild HIVES Verified 06/19/23 16:35 phenytoin [From Dilantin] Allergy Mild BURNING Verified 06/19/23 16:35 SENSATION IN BODY butalbital [BUTALBITAL] Allergy Unknown HIVES Verified 06/19/23 16:35 thimerosal [THIMEROSAL] Allergy Unknown UNKNOWN Verified 06/19/23 16:35 doxycycline AdvReac Intermediate penile Verified 06/19/23 16:35 rash? [place] Allergy Unknown Unknown Uncoded 06/19/23 16:09 MOTRIN Allergy Unknown hives Uncoded 06/19/23 16:09 Review of Systems Review of Systems: Yes all other systems are reviewed and are negative [facility] Past Medical History [facility] Narrative: Social history: He lives with his . He denies tobacco use. He rarely drinks alcohol. He denies drug use. Medical History Testicular pain Skin cyst Stroke Lipoma of abdominal wall History of carpal tunnel syndrome BERNARD positive Inguinal hernia, bilateral BPH (benign prostatic hyperplasia) Brain tumor Hypercholesterolemia Obstructive sleep apnea Vitamin D deficiency Obesity (BMI 30-39.9) Vitamin B12 deficiency GERD (gastroesophageal reflux disease) Grand mal seizure disorder Erectile dysfunction Osteoarthritis COPD (chronic obstructive pulmonary disease) Tennis elbow Calcaneal spur, right RLS (restless legs syndrome) Pulmonary nodule Insomnia Essential hypertension Diabetes mellitus with hyperglycemia Migraine Surgical History Hx of carpal tunnel repair History of diverticulosis Hx of colonoscopy History of elbow surgery Hx of foot surgery Hx of brain surgery History of partial gastrectomy History of right inguinal hernia repair Hx of prostate biopsy Family History Family History Father Diabetes Throat cancer Heart disease Mother Ovarian cancer Social History Social History Household Members: Spouse Housing: Apartment Are you a primary acute care physical therapist to a significant other at home: No Do you presently have visiting nurse or other home services: Yes ([facility]) Alcohol intake: never Patient Tobacco Use Status: Never used Tobacco Smoked in Last 30 Days: No e-Cigarette/Vaping Use: Never Used Second Hand Smoke Exposure: No Use of substances other than those prescribed or required for medical reasons: No Advance Directives: Yes Advance Directives on File: Yes Advance Directives Date on File: 06/13/21 service: No Current occupational status: retired Cognitive needs: No Hearing needs: No Vision needs: No Physical Exam Vital Signs: Vital Signs: Last Vital Signs Temp 98.2 F 06/19/23 17:07 Pulse 78 06/19/23 17:07 Resp 14 06/19/23 17:07 BP 115/65 06/19/23 17:07 Pulse Ox 99 06/19/23 17:07 O2 Del Method Room Air 06/19/23 17:07 BMI result Body Mass Index 30.2 Vital signs were normal Exam: General: Patient is awake, answers questions appropriately, alert in no distress Head: Normocephalic, atraumatic EENT: PERRL, Lids normal, sclera normal, conjunctiva normal, nose normal , ears normal, throat without erythema or exudates Neck: Supple, no adenopathy, no trachea midline or C-spine tenderness Lung: breath sounds symmetric, no wheezing, rales or rhonchi Chest: symmetric movement, nontender Heart: regular rate and rhythm, normal S1, S2 no murmurs or rubs Abdomen: soft, non-tender, nondistended, normal bowel sounds Back: no vertebral tenderness, no CVAT Extremities: no deformities, moves all extremities symmetrically Skin: no rashes, no lesion, normal color and warmth Neuro: Awake, alert, oriented, normal speech, cranial nerves intact, moves all extremities symmetrically Psych: Pleasant, cooperative Course Course Course Narrative: This is an RME: Additional HPI, ROS, PE not included below will be deferred to primary provider. patient is a 73-year-old who presents to emergency department with his coming from urgent care. In the morning she heard noises, she presented to the bedroom where she noted him to be having a seizure, reports tonic clonic, lasting 5 minutes. Reports last seizure 7 years ago, has not been on antiepileptics for the past 5-6 years ago they were reportedly discontinued by his PCP as he was doing so good . Per his he has been lethargic today. reports a fall with head injury 2 weeks ago, yesterday reporting right frontal headache, still present at this time. Reports hx benign intracranial mass removed in 1990. Plan: labs, U/A, CT head Medications Administered Discontinued Medications Generic Name Dose Route Start Last Admin Trade Name Natividad PRN Reason Stop Dose Admin Sodium Chloride 1,000 mls @ 999 mls/hr 06/19/23 17:24 06/19/23 17:40 Ns IV 06/19/23 18:24 999 mls/hr .Q1H1M STA Administration Levetiracetam 500 mg in 100 mls @ 400 mls/hr 06/19/23 17:24 06/19/23 17:40 Keppra IV 06/19/23 17:38 400 mls/hr ONCE ONE Administration Morphine Sulfate 4 mg 06/19/23 17:24 06/19/23 17:38 Morphine Sulfate 4 Mg/Ml Cartridge IVPUSH 06/19/23 17:25 4 mg ONCE STA Administration Protocol Ondansetron HCl 4 mg 06/19/23 17:24 06/19/23 17:37 Ondansetron Hcl 4 Mg/2 Ml Vial IVPUSH 06/19/23 17:25 4 mg ONCE ONE Administration Medical Decision Making Medical Decision Making MDM Narrative: 73-year-old male history of brain tumor, high cholesterol, KELLY, GERD, seizure disorder, COPD, hypertension, diabetes, migraines who was sent to the emergency department from his doctor's office for evaluation of lethargy after having a seizure earlier this morning. Patient episode of dizziness 2 weeks prior and was found on the floor, I suspect that this was a seizure. Today's seizures most likely his 2nd seizure, he said no seizure for 7 years and he was taken off his medications approximately 5 years prior. According to his the patient has had prolonged postictal. Sometimes lasting 24 hours after his previous seizures. Patient is complaining of a headache which is worse on the left side of his head but is diffuse,, throbbing/squeezing sensation and is 6/10. Following evaluation was ordered: CBC, CMP, magnesium, COVID, influenza, urinalysis, CT scan of the brain, EKG. I ordered IV normal saline x1 L, morphine 4 mg IV for his headache and Zofran 4 mg IV for his nausea. Since today's seizures most likely his 2nd seizure, I did order Keppra 500 mg IV. 18:41 Patient's laboratory evaluation revealed chronic normocytic anemia, elevated glucose of 163 otherwise no other abnormalities to explain the patient's seizure. COVID-19, influenza and RSV were negative CT scan of the brain was consistent with chronic changes due to the patient's craniotomy and removal of tumor in the left frontal lobe. 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 At this time, I believe the patient's symptoms are secondary to recurrence of his seizure disorder, this is his 2nd seizure, I did discuss this with the patient and his and the patient will be started on Keppra 500 mg q.12 hours. Patient's headache improved to 4/10, he will be given 1 more dose of morphine 4 mg IV and then discharged home Patient will need follow-up with Neurology. Differential Diagnosis Differential Diagnoses: The differential diagnosis associated with the presentation includes Differential diagnosis includes was not limited to seizure, skull fracture , intracranial bleed, electrolyte abnormality, anemia, prolonged postictal. Admission/Observation Consideration of admission/observation: Escalation of care including admission/observation considered Lab Data MDM Lab Attestation statement: I reviewed the patient's lab results. My interpretation patient's laboratory evaluation as follows: Normal septic anemia with an H&H of 11 and 34.9. Elevated glucose 163. Negative COVID-19, influenza and RSV. 06/19/23 17:26 06/19/23 17:26 Labs: Lab Results 06/19/23 Range/Units 17:26 WBC 8.6 (4.8-10.8) X10*3/uL RBC 4.00 L (4.60-5.80) X10*6/uL Hgb 11.6 L (14.0-18.0) g/dl Hct 34.9 L (42.0-52.0) % MCV 87.3 (80.0-98.0) fL MCH 29.0 (27.0-33.0) pg MCHC 33.2 (31.0-36.0) g/dl RDW 13.6 (11.0-16.0) % Plt Count 292 (160-400) X10*3/uL MPV 9.7 (9.4-12.4) fL Immature Gran % (Auto) 0.3 (0.0-0.4) % Neut % (Auto) 65.2 (45-73) % Lymph % (Auto) 23.8 (20-40) % [place] % (Auto) 7.0 (2-11) % Eos % (Auto) 3.5 (0-4) % Baso % (Auto) 0.2 (0-2) % Lymph # (Auto) 2.0 (1.2-4.9) X10*3/uL [place] # (Auto) 0.6 (0.1-1.2) X10*3/uL Eos # (Auto) 0.3 (0.0-0.4) X10*3/uL Baso # (Auto) 0.0 (0.0-0.2) X10*3/uL Abs Immat Gran (auto) 0.03 (0.00-0.03) X10*3/uL Absolute Neuts (auto) 5.6 (2.0-8.3) x10*3/uL Absolute Nucleated RBC 0.000 (0.0-0.012) X10*3/uL Nucleated RBC % (auto) 0.0 (0.0-0.2) /100WBC Sodium 138 (135-145) mmol/L Potassium 4.3 (3.3-5.1) mmol/L Chloride 105 (96-108) mmol/L Carbon Dioxide 27 (22-29) mmol/L Anion Gap 10 L (12-20) BUN 7 L (9-16) mg/dL Creatinine 1.05 (0.5-1.4) mg/dL Estim Creat Clear Calc 61.5 Estimated GFR > 60 Random Glucose 163 H (60-115) mg/dL Calcium 9.0 (8.4-10.2) mg/dL Magnesium 1.7 (1.6-2.6) mg/dL Total Bilirubin 0.5 (0.0-1.0) mg/dL AST 16 (5-37) U/L ALT 13 (0-40) U/L Alkaline Phosphatase 104 (39-117) U/L Total Protein 6.9 (6.5-8.0) g/dL Albumin 3.9 (3.5-5.0) g/dL COVID-19 (NOREEN) Negative (Negative) COVID-19 Clin Com See Note Influenza Type A (SHEYLA) Negative (Negative) Influenza Type B (SHEYLA) Negative (Negative) Influenza A & B Note See Note Independent Interpretation I performed an independent interpretation of an: EKG Interpretation: My interpretation patient's 12 EKG done at 17:36 hours is as follows, normal sinus rhythm with a normal IL interval, QRS duration and normal QTC interval 427 milliseconds, no ST segment elevation, no ST segment depression, no T-wave abnormalities, no PACs, no PVCs, this is a normal EKG. Radiology Impression Discussion of test interpretation with radiology: I have reviewed the radiologist's reading. Radiologist Impression: CT head/brain wo IV con IMPRESSION: 1. No evidence of acute intracranial hemorrhage or edematous territorial infarction. 2. Encephalomalacia/gliosis in the left frontal lobe underlying the craniotomy bed, similar to priors. 3. Paranasal sinus disease. Correlate clinically for acute sinusitis. Dictated By: Kimber Becker Discharge Plan Discharge Clinical Impression: Seizure, Headache Patient Disposition: Home, Self-Care Instructions: Recurrent Seizures in Adults (ED) Additional Instructions: The CT scan of your brain is consistent with your previous brain surgery and previous strokes. There was no new bleeding in the brain, no new stroke and no skull fracture. Your blood work was unremarkable except for anemia which is chronic and an elevated glucose of 163. Your symptoms are secondary to the seizure that you had earlier this morning. Sometimes after seizure, people can have symptoms for up to 24 hours in the symptoms can sometimes include confusion, being tired and having headaches. You received morphine 4 mg IV x2 for your headache and Keppra 500 mg IV for your seizure. I am starting you Keppra 100 mg every 12 hours for your seizures Follow-up with your primary care doctor for re-evaluation and for referral to a neurologist. Follow-up with your doctor in 2 days. Please return to the emergency department if your symptoms get worse or if you develop any symptoms that are concerning to you. Prescriptions: New levetiracetam [Keppra] 500 mg tablet 500 mg PO Q12H Qty: 60 0RF No Action meclizine 25 mg tablet 25 mg PO TID PRN (Reason: dizziness) Qty: 60 11RF (DME) blood-glucose meter [OneTouch Ultra2 Meter] Misc See Rx Instructions .Route Qty: 1 0RF Rx Instructions: test 3 times per day (DME) lancets [[employer].Touch UltraSoft 2 Lancet] 30 gauge misc See Rx Instructions .Route Qty: 100 5RF Rx Instructions: As directed (DME) OneTouch Ultra Test Strip See Rx Instructions .Route Qty: 100 5RF Rx Instructions: test 3 times per day albuterol sulfate [Ventolin HFA] 90 mcg/actuation HFA aerosol inhaler 2 puff PO Q4-6H PRN (Reason: for wheezing) Qty: 18 0RF Trulicity 1.5 mg/0.5 mL pen injector 1.5 mg subcut QWEEK Qty: 2 0RF fluticasone furoate-vilanterol [Breo Ellipta] 200-25 mcg/dose blister with device 1 inh inhalation DAILY Qty: 60 3RF montelukast [Singulair] 10 mg tablet 10 mg PO BEDTIME 90 Days Qty: 90 1RF omeprazole 20 mg capsule,delayed release(DR/EC) 20 mg PO DAILY 90 Days Qty: 90 1RF Lantus Solostar U-100 Insulin 100 unit/mL (3 mL) insulin pen 10 unit subcut DAILY 30 Days Qty: 3 3RF acetaminophen [Tylenol] 325 mg capsule 650 mg PO Q6H PRN (Reason: pain) Qty: 30 0RF triamcinolone acetonide 0.5 % cream 1 appl topical BID Qty: 15 0RF diclofenac sodium [Voltaren Arthritis Pain] 1 % gel 2 g topical QID Qty: 100 0RF Rx Instructions: apply to single elbow, wrist or hand; for hand includes palm/fingers/back of hand (DME) Compact Compressor Nebulizer Mis See Rx Instructions .Route Qty: 1 0RF Rx Instructions: As directed (DME) nebulizer accessories Kit See Rx Instructions .Route Qty: 1 0RF Rx Instructions: As directed amitriptyline 25 mg tablet 25 mg PO BEDTIME Qty: 90 1RF aspirin 81 mg tablet,delayed release (DR/EC) 81 mg PO DAILY Qty: 90 3RF atorvastatin 40 mg tablet 40 mg PO BEDTIME Qty: 90 3RF cholecalciferol (vitamin D3) 50 mcg (2,000 unit) capsule 2,000 unit PO DAILY Qty: 90 2RF lisinopril 2.5 mg tablet 2.5 mg PO DAILY 90 Days Qty: 90 3RF metformin 1,000 mg tablet 1,000 mg PO BID 90 Days Qty: 180 2RF sertraline 100 mg tablet 100 mg PO DAILY 90 Days Qty: 90 1RF gabapentin 100 mg capsule 100 mg PO BID Qty: 180 1RF tramadol 50 mg tablet 50 mg PO BID PRN (Reason: pain) 30 Days Qty: 60 1RF (DME) pen needle, diabetic [BD Ultra-Fine Mini Pen Needle] 31 gauge x 3/16 needle See Rx Instructions .Route Qty: 100 3RF Rx Instructions: As directed Inject LAntus 10 u QD cyclobenzaprine 10 mg tablet 10 mg PO TID PRN (Reason: muscle spasm) Qty: 10 0RF
[2023-06-19 17:07] VITALS: BP 115/65; PULSE 78; RESP 14; TEMP 36.8; O2SAT 99
--- NOTE | 2023-06-19 17:10 | PC.NURSE ---
pt is alert and oriented, skin appropriate for ethnicity, respirations even and unlabored, reports that earlier today around 0730 pt had a tonic clonic seizure that lasted about 5 min and was witnessed by th pt's . pt does have hx of seizures but has not had one in over 7 years so he was taken of his ant-seizure medications. pt appears slightly drowsy, seizure pads in place and ns on the monitor. pt is reporting a headache
--- NOTE | 2023-06-19 17:24 | ECG_ITS ---
Test Reason : Seizure, evaluate QTC Blood Pressure : / mmHG Vent. Rate : 073 BPM Atrial Rate : 073 BPM P-R Int : 154 ms QRS Dur : 076 ms QT Int : 388 ms P-R-T Axes : 047 034 042 degrees QTc Int : 427 ms Normal sinus rhythm RSR' or QR pattern in V1 suggests right ventricular conduction delay Otherwise normal ECG When compared with ECG of 27-NOV-2022 12:06, No significant change was found Referred By: Salty Aleman Electronically Signed By:HEYDI YU MD
[2023-06-19 17:37] LABS: MANUAL DIFF FLAG NO
[2023-06-19] MEDS: ondansetron HCL 4 MG/2 ML VIAL IVPUSH (17:37)
[2023-06-19] MEDS: Morphine Sulfate 4 MG/ML CARTRIDGE IVPUSH ×2 (17:38→19:15)
[2023-06-19] MEDS: levETIRAcetam in NaCl (iso-os) 500 MG/100 ML PIGGYBACK 400 MG IV (17:40)
[2023-06-19] MEDS: 0.9 % Sodium Chloride 1,000 ML 999 ML IV (17:40)
[2023-06-19 17:54] LABS: Alanine Aminotransferase 13 U/L (0-40); Albumin Level 3.9 g/dL (3.5-5.0); Alkaline Phosphatase 104 U/L (39-117); Anion Gap 10 (12-20); Aspartate Amino Transferase 16 U/L (5-37); Basophils Percent Auto 0.2 % (0-2); Bilirubin Total 0.5 mg/dL (0.0-1.0); Blood Urea Nitrogen 7 mg/dL (9-16); Carbon Dioxide 27 mmol/L (22-29); Chloride 105 mmol/L (96-108); Creatinine Clr Calc Pharmacy 61.5; Eosinophils Absolute Auto 0.3 X10*3/uL (0.0-0.4); Eosinophils Percent Auto 3.5 % (0-4); Estimated Glomerular Filt Rate > 60; Glucose Random 163 mg/dL (60-115); Hematocrit 34.9 % (42.0-52.0); Hemoglobin 11.6 g/dl (14.0-18.0); IDNOW Serial# 9DB6401D; Imm Gran Abs Auto 0.03 X10*3/uL (0.00-0.03); Imm Gran Pct Auto 0.3 % (0.0-0.4); Influenza A Negative (Negative); Influenza B2 Negative (Negative); Lymphocytes Percent Auto 23.8 % (20-40); Magnesium 1.7 mg/dL (1.6-2.6); Mean Corpuscular HGB Conc 33.2 g/dl (31.0-36.0); Mean Corpuscular Volume 87.3 fL (80.0-98.0); Mean Platelet Volume 9.7 fL (9.4-12.4); Monocytes Absolute Auto 0.6 X10*3/uL (0.1-1.2); Neutrophils Absolute Auto 5.6 x10*3/uL (2.0-8.3); Neutrophils Percent Auto 65.2 % (45-73); Platelet Count 292 X10*3/uL (160-400); Potassium 4.3 mmol/L (3.3-5.1); Red Cell Distribution Width 13.6 % (11.0-16.0); Sodium 138 mmol/L (135-145); Total Protein 6.9 g/dL (6.5-8.0); White Blood Count 8.6 X10*3/uL (4.8-10.8)
[2023-06-19 18:05] LABS: COVID-19 Test Negative (Negative); IDNOW Serial# BCCEAD1C
[2023-06-19 19:10] VITALS: BP 110/60; PULSE 67; RESP 13; TEMP 36.6; O2SAT 96
--- NOTE | 2023-06-19 19:19 | PC.NURSE ---
this rn assumed care of pt. jenny a&ox3, respirations even and unlabored. pt reporting 8/10 headache at this time, pt medicated per oct. normal sinus on tele 60-.
[2023-06-19 19:22] LABS: Appearance Urine Clear; Color Urine Yellow; Glucose Urine UA Negative (Negative); Leukocyte Esterase Urine Negative (Negative); Nitrite Urine Negative (Negative); PH 5.5 (5.0-9.0); Specific Gravity - Urine <= 1.005 (1.005-1.025); Urine Blood Negative (Negative); Urine Ketones Negative (Negative); Urine Protein Negative (Neg-Trace)
[2023-06-19 20:45] VITALS: BP 127/74; PULSE 70; RESP 18; O2SAT 98
== END 2023-06-19 20:48 | disposition home or self-care (01) ==
PROVIDERS: Nurse Practitioner Family; Emergency Provider Emergency Medicine Emergency Medical Services; PCP Internal Medicine
DX: R56.9 Unspecified convulsions (principal); R51.9 Headache, unspecified; R53.1 Weakness; R53.83 Other fatigue; E11.9 Type 2 diabetes mellitus without complications; I10 Essential (primary) hypertension; E78.00 Pure hypercholesterolemia, unspecified; Z86.73 Personal history of transient ischemic attack (TIA), and cerebral infarction without residual deficits; Z79.82 Long term (current) use of aspirin; Z79.899 Other long term (current) drug therapy; Z79.4 Long term (current) use of insulin; Z11.52 Encounter for screening for COVID-19
CPT/HCPCS: 70450; 80053; 81003; 83735; 85025; 87502; 87635; 93005; 96361; 96374; 96375; 96376; 99284; J1953; J2270; J2405

== ENCOUNTER 2023-06-25 08:53 | Outpatient (AMB) | payer OTHER, SELFPAY ==
[2023-06-25 08:56] VITALS: BP 118/72; PULSE 75; O2SAT 98
--- NOTE | 2023-06-25 08:56 | MHC.PC.OV ---
Vital Signs 06/25/23 08:56 Height 5 ft 4 in Weight 175 lb BMI 30.0 BP 118/72 Blood Pressure Location Lt brachial Position Sitting Pulse 75 Pulse Source Pulse Oximeter Pulse Oximetry (%) 98 Oxygen Delivery Method Room Air Intake Visit Reasons: [facility] [place], Seizure, 06/19 Allergies aspirin [ASPIRIN] Allergy (Intermediate, Verified 06/19/23 16:35) RASH WITH HIGH DOSES Penicillins Allergy (Mild, Verified 06/19/23 16:35) HIVES phenytoin [From Dilantin] Allergy (Mild, Verified 06/19/23 16:35) BURNING SENSATION IN BODY butalbital [BUTALBITAL] Allergy (Unknown, Verified 06/19/23 16:35) HIVES thimerosal [THIMEROSAL] Allergy (Unknown, Verified 06/19/23 16:35) UNKNOWN doxycycline Adverse Reaction (Intermediate, Verified 06/19/23 16:35) penile rash? [place] Allergy (Unknown, Uncoded 06/19/23 16:09) Unknown MOTRIN Allergy (Unknown, Uncoded 06/19/23 16:09) hives Tobacco use date assessed: 06/19/23 Fall risk assessment: No Falls in past year Last assessed Fall Risk: 06/25/23 Dental Screening Dental Screen Date: 06/25/23 Did you have a dental visit in the last 12 months?: Yes Did you have a dental problem in the last 6 months where you did not have access to dental care?: No Was dental information given to patient?: Patient has dentist HPI [facility] [place], Seizure, 06/19 HPI Details 73-year-old obese male with uncontrolled diabetes mellitus obstructive sleep apnea hypercholesterolemia hypertension coming in for follow-up. Last seen in April 2023 A1c at that time is 8. Review of the notes 06/19/2023 was in the emergency room lethargy and seizure had an episode of dizziness 2 weeks ago witnessed the seizure CT scan done no hemorrhage or swelling has and encephalomalacia/gliosis left frontal lobe, paranasal sinus disease patient is placed back on Keppra 500 mg twice a day. Patient has a history of left-sided brain tumor removal in 1990 and since then has been having chronic left-sided headaches. Review of the notes also had an ultrasound of the abdomen done June 2023 which revealed hepatic steatosis only. In April patient was also seen by the Ortho for the right wrist osteoarthritis does have a history of proximal row carpectomy conservative management for the moment [facility] Medical History Testicular pain Skin cyst Stroke Lipoma of abdominal wall History of carpal tunnel syndrome BERNARD positive Inguinal hernia, bilateral BPH (benign prostatic hyperplasia) Brain tumor Hypercholesterolemia Obstructive sleep apnea Vitamin D deficiency Obesity (BMI 30-39.9) Vitamin B12 deficiency GERD (gastroesophageal reflux disease) Grand mal seizure disorder Erectile dysfunction Osteoarthritis COPD (chronic obstructive pulmonary disease) Tennis elbow Calcaneal spur, right RLS (restless legs syndrome) Pulmonary nodule Insomnia Essential hypertension Diabetes mellitus with hyperglycemia Migraine Surgical History Hx of carpal tunnel repair History of diverticulosis Hx of colonoscopy History of elbow surgery Hx of foot surgery Hx of brain surgery History of partial gastrectomy History of right inguinal hernia repair Hx of prostate biopsy Family History Father Diabetes Throat cancer Heart disease Mother Ovarian cancer Social History Household Members: Spouse Housing: Apartment Are you a primary residential caregiver to a significant other at home: No Do you presently have visiting nurse or other home services: Yes ([facility]) Alcohol intake: never Patient Tobacco Use Status: Never used Tobacco e-Cigarette/Vaping Use: Never Used Second Hand Smoke Exposure: No Advance Directives Date on File: 06/13/21 service: No Current occupational status: retired Cognitive needs: No Hearing needs: No Vision needs: No Questionnaire PHQ-9 Over the last 2 weeks, how often have you been bothered by any of the following problems? 1. Little interest or pleasure in doing things: nearly every day 2. Feeling down, depressed, or hopeless: nearly every day 3. Trouble falling or staying asleep, or sleeping too much: nearly every day 4. Feeling tired or having little energy: nearly every day 5. Poor appetite or overeating: not at all 6. Feeling bad about yourself - or that you are a failure or have let yourself or your family down: not at all 7. Trouble concentrating on things, such as reading the newspaper or watching television: not at all 8. Moving or speaking so slowly that other people could have noticed. Or the opposite - being so fidgety or restless that you have been moving around a lot more than usual: not at all 9. Thoughts that you would be better off or of hurting yourself in some way: not at all Total score: 12 Depression Screening Interpretation: Positive Depression Screening Done: Yes Source: Developed by Drs. Boinfacio Disla, Cristine Card, Orville Morley and colleagues, with an educational jackson from [employer]. Thrive Questionnaire Date Thrive assessed: 12/03/22 AUDIT C Alcohol Use Questionnaire (AUDIT-C) 1. How often do you have a drink containing alcohol?: Monthly or less 2. How many drinks containing alcohol do you have on a typical day when you are drinking?: 1 or 2 3. How often do you have six or more drinks on one occasion?: Never Total Score: 1 LANA-7 AMB Questionnaire LANA-7 Date LANA - 7 assessed: 12/03/22 Source: Developed by Drs. Bonifacio Disla, Cristine Card, Orville Morley and colleagues, with an educational jackson from [employer]. Physical exam (Primary Care) Vital Signs: Last Vital Signs Pulse 75 06/25/23 08:56 BP 118/72 06/25/23 08:56 Pulse Ox 98 06/25/23 08:56 Oxygen Delivery Method Room Air 06/25/23 08:56 BMI result Body Mass Index 30.0 Tobacco/Smoking Status: Tobacco use Status Tobacco use date assessed 06/19/23 06/25/23 08:57 Patient Tobacco Use Status Never used Tobacco 06/25/23 08:57 e-Cigarette/Vaping Use Never Used 06/25/23 08:57 PHQ-9: PHQ-9 Score PHQ-9: Total score 12 06/25/23 09:14 Depression Screening Interpretation: Positive Thrive Assessment: Date of Thrive Assessment Date Thrive assessed 12/03/22 06/25/23 08:57 Const General: alert; No acute distress Eyes Conjunctivae: conjunctivae normal Resp Auscultation: clear to auscultation bilaterally Cardio Rate: regular rate Rhythm: regular rhythm GI Inspection: Yes normal to inspection Extrem General: Yes normal to inspection and No edema Office Procedures Flu Questionnaire Does the patient have a severe egg allergy?: No Does the patient have severe life threatening allergies?: No Does the patient have a fever or illness today?: No Has the patient ever had Guillain-Homeworth Syndrome?: No Has the patient ever had any past reaction to a flu shot?: No Results AMB Hemoglobin A1c AMB Hemoglobin A1c 8.0 % Last Edit by Luh Hill CMA on 06/25/23 09:15 Immunizations flu vacc [id number] 6mos up(PF) 60 mcg(15 mcgx4)/0.5 mL IM syringe Performing Provider: Den Leal MD [facility] Administered by: Luh Hill CMA on 06/25/23 09:11 Dose Route Admin Location Dispensed Lot Number Expiration Date NDC Cage Manager 0.5 mL IM Left Deltoid 0.5 mL [id number] 02/07/24 [id number] [employer] VIS Given Date VIS Provided VIS Publication Date 06/25/23 Single Vaccine 21 Eligibility Eligibility Date Funding Source Not VF Eligible 06/25/23 Private Results Reviewed Results Reviewed: Laboratory Last Values Hgb A1c (Clinic) 8.0 % (4.0-6.0) H 06/25/23 08:57 Assessment and Plan Assessment & Plan (1) Seizure: Code(s): R56.9 - Unspecified convulsions Plan: Patient has been started on Keppra and advised to follow-up with Neurology (2) Arthritis of right wrist: Code(s): M19.031 - Primary osteoarthritis, right wrist Plan: Patient has seen Orthopedics and planned conservative management as surgery would be extensive since history of surgery before (3) Obesity (BMI 30-39.9): Code(s): E66.9 - Obesity, unspecified Plan: Diet and exercise (4) Diabetes mellitus with hyperglycemia: Code(s): E11.65 - Type 2 diabetes mellitus with hyperglycemia Qualifiers: Diabetes mellitus type: type 2 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 Hemoglobin A1c goal of less than 7.0. Patient on Trulicity 1.5 mg once a week Lantus metformin (5) Essential hypertension: Code(s): I10 - Essential (primary) hypertension Plan: Continue with blood pressure medication. Decrease salt intake and exercise patient takes lisinopril 2.5 mg once a day (6) GERD (gastroesophageal reflux disease): Code(s): K21.9 - Gastro-esophageal reflux disease without esophagitis Plan: Avoid the foods that causes that usually spicy foods, tomato products, juices, coffee, soda and foods that your sensitive to. After eating do not lie down, allow 3-4 hours before in lie down. And keep the head of bed above 30 degrees to avoid the acid from going up. (7) Hypercholesterolemia: Code(s): E78.00 - Pure hypercholesterolemia, unspecified Plan: Avoid fried foods, chicken skin, eggs, butter margarine, pastries and meat. Be it pork or beef they have a lot of cholesterol last blood work was 2020 patient is reminded to get the blood work done patient is on atorvastatin 40 mg once a day (8) Recurrent major depression: Comment: suicidal ideation 05/2012 Code(s): F33.9 - Major depressive disorder, recurrent, unspecified Plan: will try to get counselling (9) Frequency of micturition: Code(s): R35.0 - Frequency of micturition Plan: ff up on the [facility] on counselling Orders: Orders US bladder Today R35.0 - Frequency of micturition AMB Hemoglobin A1c Today Z13.9 - Encounter for screening, unspecified Influenza [id number] Immunization Today Z23 - Encounter for immunization Referrals Neurology Referral R56.9 - Unspecified convulsions Coding Level of Care Code Est Pt Level 4 (52429) Diagnoses Seizure R56.9 Arthritis of right wrist M19.031 Obesity (BMI 30-39.9) E66.9 Type 2 diabetes mellitus with hyperglycemia, with long-term current use of insulin E11.65; Z79.4 Diabetes mellitus type: type 2 Diabetes mellitus nursing home insulin use: with nursing home use Essential hypertension I10 GERD (gastroesophageal reflux disease) K21.9 Hypercholesterolemia E78.00 Recurrent major depression F33.9 Frequency of micturition R35.0
== END 2023-06-25 11:07 | disposition home or self-care (01) ==
PROVIDERS: PCP Internal Medicine; Visit Provider Internal Medicine
DX: Z23 Encounter for immunization (principal); R56.9 Unspecified convulsions; E11.65 Type 2 diabetes mellitus with hyperglycemia; Z79.4 Long term (current) use of insulin; F33.9 Major depressive disorder, recurrent, unspecified; I10 Essential (primary) hypertension; K21.9 Gastro-esophageal reflux disease without esophagitis; E78.00 Pure hypercholesterolemia, unspecified; R35.0 Frequency of micturition
CPT/HCPCS: 83036; 90471; 90686; 99214

== ENCOUNTER 2023-07-01 14:47 | Outpatient (REF) | payer OTHER, SELFPAY ==
[2023-07-01 15:53] LABS: Alanine Aminotransferase 11 U/L (0-40); Alkaline Phosphatase 103 U/L (39-117); Aspartate Amino Transferase 16 U/L (5-37); Bilirubin Direct 0.3 mg/dL (0.0-0.5); Bilirubin Total 0.6 mg/dL (0.0-1.0); Total Protein 7.1 g/dL (6.5-8.0)
== END 2023-07-01 14:48 | disposition home or self-care (01) ==
LOC: HO.LAB 14:47
PROVIDERS: PCP Internal Medicine; Visit Provider Podiatrist
DX: B35.1 Tinea unguium (principal)
CPT/HCPCS: 36415; 80076

== ENCOUNTER 2023-07-28 11:31 | Outpatient (REF) | payer OTHER, SELFPAY ==
--- NOTE | ~2023-07-28 | US_ITS ---
EXAMINATION: US PELVIS LIMITED (BLADDER) CLINICAL INFORMATION: Frequency of micturition. COMPARISON: CT abdomen and pelvis 04/29/2022. Ultrasound bladder 10/17/2019. TECHNIQUE: Real-time imaging of the bladder. FINDINGS: BLADDER: Partially distended, limiting evaluation. Mild diffuse irregularity and trabeculations of the bladder wall. Bilateral ureteral jets are not demonstrated. Prevoid bladder volume is 184.1 mL. Postvoid bladder volume is 33.3 mL. Enlarged prostate, volume 28.3 mL. Echogenic foci within the prostate gland characteristic of coarse calcifications. US/US bladder IMPRESSION: 1. Mild diffuse irregularity and trabeculations of the bladder wall. 2. Enlarged prostate with echogenic foci within the prostate gland characteristic of coarse calcifications.
== END 2023-07-28 11:32 | disposition home or self-care (01) ==
LOC: HO.US 11:31
PROVIDERS: PCP Internal Medicine; Visit Provider Internal Medicine
DX: R35.0 Frequency of micturition (principal)
CPT/HCPCS: 76857

== ENCOUNTER 2023-08-05 14:22 | Emergency (ER) | payer OTHER, SELFPAY ==
--- NOTE | ~2023-08-05 | XR_ITS ---
EXAMINATION: XR TIBIA AND FIBULA, RIGHT CLINICAL INFORMATION: Pain after falling COMPARISON: None available. TECHNIQUE: AP and lateral views of the right tibia and fibula were obtained. FINDINGS: Tibia and fibula are intact. Vascular calcifications noted. The included portions of the ankle and knee appear intact as well although these joints are not fully covered. There is moderate spurring posterior calcaneus the insertion of the Achilles tendon. XR/XR tibia fibula RT 2V IMPRESSION: No acute findings.
--- NOTE | ~2023-08-05 | CT_ITS ---
STUDY: Unenhanced CT of the brain and cervical spine INDICATION: Fall, hit head COMPARISON: 06/19/2023 brain TECHNIQUE: Continuous helical imaging obtained through the head and cervical spine without IV contrast. Reconstructed images performed in the coronal and sagittal planes. This CT examination was performed using dose optimization techniques as appropriate, variously including the following: *Automated exposure control *Adjustment of mA and/or kV according to patient size (this includes techniques or standardized protocols for targeted exams where dose is matched to indication/reason for exam; i.e. extremities or head) *Use of iterative reconstruction technique TOTAL EXAM DLP: 697 mGy-cm for brain 306 mGy-cm for cervical spine FINDINGS: Head: Atrophy, post left craniotomy and left frontal encephalomalacia are stable. No intracranial hemorrhage or extra-axial fluid collections are identified. No cranial fractures or soft tissue hematomas. No evolving infarct, mass lesion, mass effect or midline shift shift. Bilateral frontal and ethmoid sinus disease. Mild mucosal thickening left maxillary antrum. Mastoids are clear. Nasal septal deviation. Intraorbital structures are remarkable for bilateral lens extractions. Cervical spine: Lumbar lordotic straightening. Multilevel vertebral body height losses are likely degenerative. Trace anterolisthesis C3 on C4. Multilevel spurring. C6-C7 disc space narrowing. Odontoid is intact. Posterior elements are aligned and no prevertebral soft tissue swelling seen. No fracture or traumatic subluxation. Multilevel bilateral neuroforaminal narrowings with hypertrophic facet changes. No spinal canal narrowing. Mild biapical pleural thickening. Atherosclerotic calcifications right carotid bulb. Unremarkable parotid and symmetric submandibular glands. Mildly heterogeneous thyroid without lesions. Prominent bilateral cervical lymph nodes. Largest left prevascular lymph node measures 1.6 cm, in the right posterior neck measures [address]/CT cervical spine wo IV con IMPRESSION: No acute intracranial or cervical spine pathology after fall. Stable post left craniotomy findings and volume loss. Sinus disease as described. Cervical lordotic straightening and degenerative type changes with C6-C7 disc space narrowing and multilevel hypertrophic facet changes and neuroforaminal narrowings. Correlate clinically regarding prominent cervical lymph nodes.
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
[2023-08-05 14:31] VITALS: BP 153/73; PULSE 90; RESP 18; TEMP 36.7; O2SAT 99; BMI 30.8
--- NOTE | 2023-08-05 14:35 | ECG_ITS ---
Test Reason : fall Blood Pressure : / mmHG Vent. Rate : 086 BPM Atrial Rate : 086 BPM P-R Int : 156 ms QRS Dur : 076 ms QT Int : 360 ms P-R-T Axes : 046 028 040 degrees QTc Int : 430 ms Normal sinus rhythm Normal ECG When compared with ECG of 19-JUN-2023 17:36, No significant change was found Referred By: Bonnie Turcios Electronically Signed By:MARGARITA WILLS
[2023-08-05 14:50] LABS: MANUAL DIFF FLAG NO
[2023-08-05 14:53] LABS: Basophils Percent Auto 0.3 % (0-2); Eosinophils Absolute Auto 0.3 X10*3/uL (0.0-0.4); Eosinophils Percent Auto 4.6 % (0-4); Hemoglobin 11.8 g/dl (14.0-18.0); Imm Gran Abs Auto 0.01 X10*3/uL (0.00-0.03); Imm Gran Pct Auto 0.2 % (0.0-0.4); Lymphocytes Absolute Auto 1.7 X10*3/uL (1.2-4.9); Lymphocytes Percent Auto 27.9 % (20-40); Mean Corpuscular HGB Conc 32.8 g/dl (31.0-36.0); Mean Corpuscular Hemoglobin 28.4 pg (27.0-33.0); Mean Corpuscular Volume 86.5 fL (80.0-98.0); Mean Platelet Volume 9.1 fL (9.4-12.4); Monocytes Absolute Auto 0.3 X10*3/uL (0.1-1.2); Monocytes Percent Auto 5.4 % (2-11); Neutrophils Absolute Auto 3.8 x10*3/uL (2.0-8.3); Neutrophils Percent Auto 61.6 % (45-73); Platelet Count 254 X10*3/uL (160-400); Red Blood Count 4.16 X10*6/uL (4.60-5.80); White Blood Count 6.1 X10*3/uL (4.8-10.8)
[2023-08-05 14:58] LABS: Prothrombin Time 12.5 SEC (11.1-13.3)
[2023-08-05 15:06] LABS: IDNOW Serial# BCCEAD1C
[2023-08-05 15:07] LABS: COVID-19 Test Negative (Negative)
[2023-08-05 15:08] LABS: Alanine Aminotransferase 15 U/L (0-40); Albumin Level 3.9 g/dL (3.5-5.0); Alkaline Phosphatase 115 U/L (39-117); Anion Gap 12 (12-20); Aspartate Amino Transferase 16 U/L (5-37); Bilirubin Direct 0.2 mg/dL (0.0-0.5); Bilirubin Total 0.6 mg/dL (0.0-1.0); Blood Urea Nitrogen 8 mg/dL (9-16); Calcium 9.3 mg/dL (8.4-10.2); Carbon Dioxide 27 mmol/L (22-29); Chloride 101 mmol/L (96-108); Creatinine Clr Calc Pharmacy 54.8; Estimated Glomerular Filt Rate > 60; Glucose Random 351 mg/dL (60-115); IDNOW Serial# 08D9AD1C; Influenza A Negative (Negative); Influenza B2 Negative (Negative); Magnesium 1.8 mg/dL (1.6-2.6); Potassium 4.1 mmol/L (3.3-5.1); Sodium 136 mmol/L (135-145); Total Protein 7.2 g/dL (6.5-8.0)
[2023-08-05 15:18] LABS: Troponin-I High Sensitivity < 2.7 ng/L (<3.5-35.0)
[2023-08-05 20:31] VITALS: BP 156/80; PULSE 69; RESP 16; TEMP 36.7; O2SAT 100
[2023-08-05 20:44] VITALS: BP 142/77; BP 150/76; BP 169/81; PULSE 71; PULSE 73; PULSE 82
[2023-08-05 21:22] LABS: Glucose, Whole Blood 166 mg/dL (60-115)
== END 2023-08-05 21:49 | disposition home or self-care (01) ==
PROVIDERS: Physician Assistant; Emergency Provider Student in an Organized Health Care Education/Training Program; PCP Internal Medicine
DX: S80.11XA Contusion of right lower leg, initial encounter (principal); R42 Dizziness and giddiness; I10 Essential (primary) hypertension; E11.9 Type 2 diabetes mellitus without complications; J45.909 Unspecified asthma, uncomplicated; Z86.73 Personal history of transient ischemic attack (TIA), and cerebral infarction without residual deficits; Z79.82 Long term (current) use of aspirin; W18.2XXA Fall in (into) shower or empty bathtub, initial encounter; Y93.9 Activity, unspecified; Y92.9 Unspecified place or not applicable; Y99.9 Unspecified external cause status; Z11.52 Encounter for screening for COVID-19
CPT/HCPCS: 70450; 72125; 73590; 80048; 80076; 82947; 83735; 84484; 85025; 85610; 87502; 87635; 93005; 99283; 99284; 99285

== ENCOUNTER → 2023-08-05 14:35 | Outpatient (BNV) | payer OTHER, SELFPAY | PROVIDERS: PCP Internal Medicine; Visit Provider Internal Medicine | DX: R42 Dizziness and giddiness (principal) | CPT/HCPCS: 93010 ==

== ENCOUNTER 2023-08-26 10:38 | Outpatient (AMB) | payer OTHER, SELFPAY ==
--- NOTE | 2023-08-26 10:50 | MHC.OFFVIS ---
Intake Vital Signs 08/26/23 10:52 Height 5 ft 4 in Weight 180 lb BMI 30.9 Intake Visit Reasons: OV-Primary osteoarthritis, right wrist Intake Note: Geovanny 73 yr old male who is right hand dominant presents today for his follow up visit for his Arthritis of right wrist. States his pain has worsen. He continues to wear his splint due to pain. Last A1C was a 8.0 done in 2022. States he is open to discussing an injection. Allergies aspirin [ASPIRIN] Allergy (Intermediate, Verified 08/26/23 10:52) RASH WITH HIGH DOSES Penicillins Allergy (Mild, Verified 08/26/23 10:52) HIVES phenytoin [From Dilantin] Allergy (Mild, Verified 08/26/23 10:52) BURNING SENSATION IN BODY butalbital [BUTALBITAL] Allergy (Unknown, Verified 08/26/23 10:52) HIVES thimerosal [THIMEROSAL] Allergy (Unknown, Verified 08/26/23 10:52) UNKNOWN doxycycline Adverse Reaction (Intermediate, Verified 08/26/23 10:52) penile rash? [place] Allergy (Unknown, Uncoded 08/26/23 10:52) Unknown MOTRIN Allergy (Unknown, Uncoded 08/26/23 10:52) hives HPI OV-Primary osteoarthritis, right wrist HPI Details Geovanny is a 73 year old right hand dominant primarily Turkmen speaking Diabetic man who returns to discuss his right wrist OA. 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 He continues to have pain and swelling about his wrist, worse with overuse or heavy lifting activities. His pain has worsened in the last few months and he is now wearing his wrist brace more often to help. He would like to discuss injections today. His most recent HgA1c was 8.0% on 06/25/23. ON LICENSE OF [facility] Medical History Testicular pain Skin cyst Stroke Lipoma of abdominal wall History of carpal tunnel syndrome BERNARD positive Inguinal hernia, bilateral BPH (benign prostatic hyperplasia) Brain tumor Hypercholesterolemia Obstructive sleep apnea Vitamin D deficiency Obesity (BMI 30-39.9) Vitamin B12 deficiency GERD (gastroesophageal reflux disease) Grand mal seizure disorder Erectile dysfunction Osteoarthritis COPD (chronic obstructive pulmonary disease) Tennis elbow Calcaneal spur, right RLS (restless legs syndrome) Pulmonary nodule Insomnia Essential hypertension Diabetes mellitus with hyperglycemia Migraine Surgical History Hx of carpal tunnel repair History of diverticulosis Hx of colonoscopy History of elbow surgery Hx of foot surgery Hx of brain surgery History of partial gastrectomy History of right inguinal hernia repair Hx of prostate biopsy Family History Father Diabetes Throat cancer Heart disease Mother Ovarian cancer Social History Household Members: Spouse Housing: Apartment Are you a primary grounds caretaker to a significant other at home: No Do you presently have visiting nurse or other home services: Yes ([facility]) Alcohol intake: never Patient Tobacco Use Status: Never used Tobacco e-Cigarette/Vaping Use: Never Used Second Hand Smoke Exposure: No Advance Directives Date on File: 06/13/21 service: No Current occupational status: retired Cognitive needs: No Hearing needs: No Vision needs: No Review of Systems Const All systems reviewed & are unremarkable except as noted in HPI and below Physical Exam Vital Signs: BMI result Body Mass Index 30.9 Const General: no acute distress and alert Orientation/consciousness: patient oriented x3 Neuro General: patient oriented x3 Extrem Other: Evaluation of Right Upper Extremity: Neuro: Median, ulnar, radial nerves motor and sensory grossly intact with normal sensation to all digits. No thenar or intrinsic wasting. Vascular: Cap refill brisk. ROM: He can make a fist and he can extend all of his digits. No locking or catching He does have some arthritic changes in his digits Right wrist ROM ~40 degrees of extension and ~30-40 degrees of flexion. Good prono-supination Tenderness over the dorsal radial aspect of his wrist/radiocarpal joint Skin: He has a well-healed longitudinal scar over the dorsal aspect of his wrist. No erythema , warmth or evidence of infection Radiographs: 3 views of the right wrist were taken and viewed by me today in clinic. They show that he has had a proximal row carpectomy. The radio capitate joint appears to be preserved. Significant atherosclerosis. He has some early basal joint arthritis. Psych Appearance: grossly normal Affect: normal affect Attitude: cooperative Office Procedures Fracture Care Details: No fracture; injection 49630, and [id number] for FluoroScan for needle placement Fracture Billing Code: Fracture Billing Code Assessment & Plan Assessment & Plan (1) Arthritis of right wrist: Code(s): M19.031 - Primary osteoarthritis, right wrist (2) Status post proximal row carpectomy of wrist: Code(s): Z98.890 - Other specified postprocedural states (3) Diabetes mellitus with hyperglycemia: Code(s): E11.65 - Type 2 diabetes mellitus with hyperglycemia Qualifiers: Diabetes mellitus fpc insulin use: with fpc use Diabetes mellitus type: type 2 Qualified Code(s): E11.65 - Type 2 diabetes mellitus with hyperglycemia; Z79.4 - FDC (current) use of insulin Plan Assessment & Plan: 1. Right wrist osteoarthritis 2. S/P right proximal row carpectomy DOS: ~2018 at [facility] 3. S/P right carpal tunnel release DOS: ~2017 at [facility] Normal sensation in median nerve distribution today. I educated the patient and his about these conditions We talked about the importance of activity modification. I reminded him that while his proximal row carpectomy help preserve motion and decreased his pain, he does not have a normal wrist. I reminded him that heavy or impact type activities are likely to cause him pain. He has braces at home to use when symptomatic. At this point surgical options would likely involve a fairly large procedure like a total wrist arthrodesis which would severely limit his right wrist range of motion and use. He understands that a wrist arthrodesis is only to be undertaken if absolutely necessary. The patient would like to proceed with an injection today Injection #1 : The risks and benefits of a steroid injection including but not limited to risk of damage to blood vessels, nerve, tendon, infection, skin bleaching, persistent or worsening pain, and failure to improve symptoms were discussed with the patient and they wish to proceed with the steroid injection. Once consent was obtained the skin over the dorsum of the right wrist joint was sterilely prepped. The joint was then injected with a combination of 1 mL of (40 mg/ml} Depo-Medrol and 2% plain Lidocaine, using the fluoroscan for needle placement. The patient appears to have tolerated the procedure well and with no complications. He had good early relief before leaving clinic today. He knows that they may not have another steroid injection into this joint for least 4 months. He will follow up prn Scribed for Zulema Overton MD by Deangelo Rodriguez, medical billing coder, on 08/26/23 at 11:10 AM, EST. 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
[2023-08-26 10:52] VITALS: BMI 30.9
== END 2023-08-26 11:31 | disposition home or self-care (01) ==
PROVIDERS: PCP Internal Medicine; Visit Provider Orthopaedic Surgery
DX: M19.031 Primary osteoarthritis, right wrist (principal); E11.65 Type 2 diabetes mellitus with hyperglycemia; Z79.4 Long term (current) use of insulin
CPT/HCPCS: 20605; 77002; 99213

== ENCOUNTER 2023-08-26 11:00 | Outpatient (REF) | payer OTHER, SELFPAY ==
--- NOTE | ~2023-08-26 | FL_ITS ---
EXAMINATION: XR FLUOROSCOPY WITH IMAGES CLINICAL INFORMATION: Other specified postprocedural states. COMPARISON: 3 views right wrist 08/26/2023. TECHNIQUE: Fluoroscopy Supervised By: Dr. Zulema Overton. Fluoroscopy Time: 7.8 seconds. DAP: 5166.9 Gycm2. Images: 1. FINDINGS: Solitary image demonstrates prior proximal carpal row resection. Residual osseous fragments in the proximal row noted. Subchondral cystic changes again noted in the proximal capitate. A needle appears directed into the expected region of the scaphoid bone. The radial articular surface is irregular with subchondral cystic changes. DRUJ appears normal. Ulna appears normal. Advanced arthritic changes of the STT/joints. Diffuse vascular calcifications incidentally noted. No acute bony abnormality seen. FL/FL guided needle placement IMPRESSION: Intraoperative imaging as detailed.
--- NOTE | ~2023-08-26 | XR_ITS ---
EXAMINATION: XR WRIST, RIGHT CLINICAL INFORMATION: Pain. COMPARISON: Prior radiographs, most recently 01/27/2023. TECHNIQUE: PA, lateral, and oblique views of the right wrist. FINDINGS: Bony alignment and mineralization is normal. There has been a proximal row carpectomy. There are residual osseous fragments in the proximal carpal row. There is again subarticular sclerosis and cystic change in the proximal capitate. No fracture or dislocation is seen. There is no abnormal bone erosion. No focal soft tissue swelling, gas or foreign body is seen. There are diffuse atherosclerotic calcifications. XR/XR wrist RT min 3V IMPRESSION: No acute fracture or dislocation is seen. There are stable postoperative changes consistent with a prior proximal row carpectomy. There are stable degenerative changes of the proximal capitate.
== END 2023-08-26 11:01 | disposition home or self-care (01) ==
LOC: HO.HOSX 11:00
PROVIDERS: Visit Provider Orthopaedic Surgery
DX: M19.031 Primary osteoarthritis, right wrist (principal); E11.65 Type 2 diabetes mellitus with hyperglycemia; Z79.4 Long term (current) use of insulin; Z98.890 Other specified postprocedural states
CPT/HCPCS: 20605; 73110; 77002; 99212; J1020

== ENCOUNTER 2023-08-31 17:36 | Emergency (ER) | payer OTHER, SELFPAY ==
--- NOTE | ~2023-08-31 | CT_ITS ---
EXAMINATION: CT ABDOMEN AND PELVIS WITHOUT CONTRAST CLINICAL INFORMATION: Flank pain. Painful urination. COMPARISON: None available. TECHNIQUE: Multidetector volumetric imaging was performed from the superior aspect of the liver through the pubic symphysis following oral contrast. Sagittal and coronal reformatted images were obtained on the technologist's workstation. This CT examination was performed using dose optimization techniques as appropriate, variously including the following: *Automated exposure control *Adjustment of mA and/or kV according to patient size (this includes techniques or standardized protocols for targeted exams where dose is matched to indication/reason for exam; i.e. extremities or head) *Use of iterative reconstruction technique DLP: 460 mGy-cm FINDINGS: LUNG BASES: There is atelectatic changes in the left lung base. Heart size is normal. LIVER, GALLBLADDER, AND BILIARY TREE: The liver is normal in size, shape, and attenuation. No focal hepatic lesion or biliary ductal dilatation is present. The gallbladder is unremarkable with no evidence of radiopaque gallstones, gallbladder wall thickening, or obvious pericholecystic inflammatory changes. PANCREAS: Unremarkable. SPLEEN: Unremarkable. ADRENAL GLANDS: Unremarkable. KIDNEYS AND URETERS: The kidneys are normal in size, shape, and attenuation. No hydronephrosis, hydroureter, or calculi seen. There is mild bilateral perinephric stranding. BLADDER: The urinary bladder is distended without wall thickening. GASTROINTESTINAL TRACT: There is scattered stool and gas seen throughout the colon without any significant distention. The stomach is nondistended. There are surgical tona at the GE junction from previous intervention ABDOMINAL WALL: No significant hernia is appreciated. LYMPH NODES: Normal. VASCULAR: Unremarkable. PELVIC VISCERA: The prostate gland is mildly enlarged with central gland calcification. OSSEOUS STRUCTURES: No aggressive lytic or sclerotic process seen. There is mild ventral spondylosis lower thoracic and upper lumbar spine.. CT/CT abdomen pelvis wo IV con IMPRESSION: No acute intra-abdominal process seen. Moderate constipation. Postsurgical changes at the GE junction from previous intervention. Distended urinary bladder with mild prostate enlargement. Fleischner guidelines were followed.
[2023-08-31 18:17] VITALS: BP 129/65; PULSE 97; RESP 20; TEMP 37; O2SAT 98; BMI 29.7
--- NOTE | 2023-08-31 18:20 | ED_ITS ---
HPI - General Adult General Chief complaint: Extremity Injury, Lower Stated complaint: RT hip pain Time Seen by Provider: 08/31/23 20:26 Source: patient, family and old records reviewed Mode of arrival: ambulatory Limitations: no limitations History of Present Illness HPI narrative: 73 yo male with PMH of BPH, DM, asthma, seizures, anemia, CVA, diabetic neuropathy, sciatica, GERD, migraines, HTN here with c/o R hip pain and flank pain radiating down leg and into abdomen. He denies n/v/d fevers or chills. It hurts to move. He states he woke up like this 3 days ago. has some slight burning with urination. He denies b/b incontinence no saddle anesthesia. He is not on blood thinners MD complaint: R hip pain Onset (ago): day(s) (3) Location: pelvis and right Radiation: flank and distal Severity: severe Quality: burning and stabbing Pain Consistency: constant Relieving factors: rest Exacerbating factors: movement Associated symptoms: other (dysuria) Treatments prior to arrival: none Related Data Previous Rx's Medication Instructions Recorded nebulizer accessories #1 ea 07/09/21 nebulizers (Compact Compressor #1 ea 07/09/21 Nebulizer) triamcinolone acetonide 0.5 % 1 appl topical BID #15 grams 08/22/21 topical cream aspirin 81 mg tablet,delayed 81 mg PO DAILY #90 tabs 12/03/22 release atorvastatin 40 mg tablet 40 mg PO BEDTIME #90 tabs 12/03/22 cholecalciferol (vitamin D3) 50 2,000 unit PO DAILY #90 caps 12/03/22 mcg (2,000 unit) capsule lisinopril 2.5 mg tablet 2.5 mg PO DAILY 90 days #90 tabs 12/03/22 metformin 1,000 mg tablet 1,000 mg PO BID 90 days #180 tabs 12/03/22 sertraline 100 mg tablet 100 mg PO DAILY 90 days #90 tabs 12/03/22 meclizine 25 mg tablet 25 mg PO TID PRN dizziness #60 tabs 01/12/23 blood sugar diagnostic (OneTouch #100 ea 01/14/23 Ultra Test strips) blood-glucose meter (OneTouch #1 ea 01/14/23 Ultra2 Meter) lancets 30 gauge (OneTouch #100 ea 01/14/23 UltraSoft 2 Lancet) albuterol sulfate 90 mcg/actuation 2 puff PO Q4-6H PRN for wheezing 01/20/23 aerosol inhaler (Ventolin HFA) #18 grams acetaminophen 325 mg capsule 650 mg (2 x 325 mg) PO Q6H PRN 02/04/23 (Tylenol) pain #30 caps pen needle, diabetic 31 gauge x #100 ea 03/13/23 3/16 (BD Ultra-Fine Mini Pen Needle) gabapentin 100 mg capsule 100 mg PO BID #180 caps 04/16/23 tramadol 50 mg tablet 50 mg PO BID PRN pain 30 days #60 04/16/23 tabs dulaglutide 1.5 mg/0.5 mL 1.5 mg (0.5 mL) subcut QWEEK #2 mL 05/15/23 subcutaneous pen injector ([employer]) fluticasone furoate 200 1 inh inhalation DAILY #60 ea 05/31/23 mcg-vilanterol 25 mcg/dose inhalation powder (Breo Ellipta) montelukast 10 mg tablet 10 mg PO BEDTIME 90 days #90 tabs 06/03/23 (Singulair) omeprazole 20 mg capsule,delayed 20 mg PO DAILY 90 days #90 caps 06/03/23 release insulin glargine 100 unit/mL (3 10 unit (0.1 mL) subcut DAILY 30 06/15/23 mL) subcutaneous pen (Lan #3 mL Solostar U-100 Insulin) levetiracetam 500 mg tablet 500 mg PO Q12H #60 tabs 06/19/23 (Keppra) amitriptyline 25 mg tablet 25 mg PO BEDTIME #90 tabs 07/16/23 cyclobenzaprine 10 mg tablet 10 mg PO TID PRN muscle spasm #10 07/16/23 tabs cyclobenzaprine 10 mg tablet 10 mg PO TID PRN muscle spasm #14 09/01/23 tabs lidocaine 5 % topical patch 1 patch topical DAILY #30 ea 09/01/23 Allergies Allergy/AdvReac Type Severity Reaction Status Date / Time aspirin [ASPIRIN] Allergy Intermediate RASH WITH Verified 08/31/23 18:17 HIGH DOSES Penicillins Allergy Mild HIVES Verified 08/31/23 18:17 phenytoin [From Dilantin] Allergy Mild BURNING Verified 08/31/23 18:17 SENSATION IN BODY butalbital [BUTALBITAL] Allergy Unknown HIVES Verified 08/31/23 18:17 thimerosal [THIMEROSAL] Allergy Unknown UNKNOWN Verified 08/31/23 18:17 doxycycline AdvReac Intermediate penile Verified 08/31/23 18:17 rash? [place] Allergy Unknown Unknown Uncoded 08/26/23 10:52 MOTRIN Allergy Unknown hives Uncoded 08/26/23 10:52 Review of Systems 2 Review of Systems: Constitutional : No Fever, No Chills ENT/Mouth : No Ear Pain, No Hoarseness, No sore throat Eyes: No Eye Pain, No Swelling, No Redness, No Foreign Body Cardiovascular : No Chest Pain, No SOB Respiratory : No Cough, No Dyspnea Gastrointestinal : No Nausea, No Vomiting, No Diarrhea, pos abdominal Pain Genitourinary : pos Dysuria, No Hematuria Musculoskeletal : positive joint pain, No Myalgias, No Joint Swelling Skin : No Skin lacerations, No rash Neuro : No Weakness, No Numbness, No Loss of Consciousness, No Dizziness, No Headache Psych : No Anxiety/Panic, No Depression Heme/Lymph: no easy bruising, no Lymphadenopathy Endocrine : No Polyuria, No Polydipsia All other systems reviewed and are negative PMFSH Past Medical History Source: old records reviewed Medical History Testicular pain Skin cyst Stroke Lipoma of abdominal wall History of carpal tunnel syndrome HOLLY positive Inguinal hernia, bilateral BPH (benign prostatic hyperplasia) Brain tumor Hypercholesterolemia Obstructive sleep apnea Vitamin D deficiency Obesity (BMI 30-39.9) Vitamin B12 deficiency GERD (gastroesophageal reflux disease) Grand mal seizure disorder Erectile dysfunction Osteoarthritis COPD (chronic obstructive pulmonary disease) Tennis elbow Calcaneal spur, right RLS (restless legs syndrome) Pulmonary nodule Insomnia Essential hypertension Diabetes mellitus with hyperglycemia Migraine Surgical History Hx of carpal tunnel repair History of diverticulosis Hx of colonoscopy History of elbow surgery Hx of foot surgery Hx of brain surgery History of partial gastrectomy History of right inguinal hernia repair Hx of prostate biopsy Family History Family History Father Diabetes Throat cancer Heart disease Mother Ovarian cancer Social History Social History Household Members: Spouse Housing: Apartment Are you a primary daycare worker to a significant other at home: No Do you presently have visiting nurse or other home services: Yes ([facility]) Alcohol intake: never Patient Tobacco Use Status: Never used Tobacco e-Cigarette/Vaping Use: Never Used Second Hand Smoke Exposure: No Advance Directives: Yes Advance Directives on File: Yes Advance Directives Date on File: 06/13/21 service: No Current occupational status: retired Cognitive needs: No Hearing needs: No Vision needs: No Physical Exam ED Vital Signs: Vital Signs - 24 hr 08/31/23 18:17 08/31/23 20:36 08/31/23 22:53 Temperature 98.6 F 99.5 F Pulse Rate 97 92 99 Respiratory Rate 20 16 Blood Pressure 129/65 124/71 113/56 L Pulse Oximetry 98 100 97 Oxygen Delivery Method Room Air Room Air Room Air BMI result Body Mass Index 29.7 Appearance: Alert. Oriented X3. No acute distress. Eyes: Pupils equal, round and reactive to light. ENT: Pharynx normal. Neck: Normal inspection. Neck supple. CVS: Normal heart rate and rhythm. Pulses normal. Respiratory: No respiratory distress. Breath sounds normal. Abdomen: Soft and ttp and fullness of suprapubic area Skin: Skin warm and dry. Normal skin color. Normal skin turgor. Extremities: No lower extremity edema. No calf ttp R leg ttp along R hip but no redness, no warmth, no rash, pain with any ROM distal 2+ pulses noted. SILT inner thigh Neuro: Oriented X 3. No motor deficit. No sensory deficit. Course Course Course Narrative: RME performed by Kraen Salmeron PA-C. Patient is a 73 year old assigned male at presenting to the emergency department with right hip pain and burning with urination. Detailed physical exam and review of systems are deferred to the primary care sales representative. Labs and imaging ordered. Patient placed back in the waiting room pending room availability and results. Reevaluation(s) Reevaluation #1: on CT scan patient has enlarged bladder bladder scan shows > [id number] asked him to void it shows 737 he has no midline back pain I am wondering if his R flank pain and abdominal pain is due to pressure from enlarged bladder will cath and recheck he has hx of BPH - PVR is > 700 Reevaluation #2: does feel less pressure after howe placement - but still has isolated R hip pain with movements. has no back pain to suggest CE it is all isolated to the R hip Reevaluation #3: 3 days of hip pain no erythema no fevers no WBC count normal ESR clinically not consistent with septic joint feels better with pain medications will DC home at this time Medications Administered Discontinued Medications Generic Name Dose Route Start Last Admin Trade Name Natividad PRN Reason Stop Dose Admin Lidocaine HCl 10 ml 08/31/23 22:28 08/31/23 22:44 Lidocaine Hcl 2 % Urojet 10 Ml Jel.Pf.Marcy TOPICAL 08/31/23 22:29 10 ml ONCE ONE Administration Morphine Sulfate 4 mg 08/31/23 23:13 08/31/23 23:28 Morphine Sulfate 4 Mg/Ml Cartridge IM 08/31/23 23:14 4 mg ONCE ONE Administration Protocol Oxycodone HCl 10 mg 08/31/23 20:57 08/31/23 21:15 Oxycodone Hcl Immed Release 5 Mg Tablet PO 08/31/23 20:58 10 mg ONCE ONE Administration Medical Decision Making Medical Decision Making [facility] Narrative: 73 yo male with PMH of BPH, DM, asthma, seizures, anemia, CVA, diabetic neuropathy, sciatica, GERD, migraines, HTN here with c/o R leg pain R flank pain and dysuria at this time will need UA, CT scan for R hip for occult fracture but also renal colic. Possible sciatica, stone, UTI. He has pain with movements so MSK seems more likely he is NV intact no cauda equina symptoms and he has bounding pulses doubt ischemia. Differential Diagnosis Differential Diagnoses: The differential diagnosis associated with the presentation includes UTI, sciatica, renal colic Admission/Observation Consideration of admission/observation: Escalation of care including admission/observation considered Lab Data [facility] Lab Attestation statement: I reviewed the patient's lab results. 08/31/23 18:51 08/31/23 18:51 Labs: Lab Results 08/31/23 Range/Units 18:51 WBC 10.1 (4.8-10.8) X10*3/uL RBC 4.36 L (4.60-5.80) X10*6/uL Hgb 12.4 L (14.0-18.0) g/dl Hct 37.2 L (42.0-52.0) % MCV 85.3 (80.0-98.0) fL MCH 28.4 (27.0-33.0) pg MCHC 33.3 (31.0-36.0) g/dl RDW 13.0 (11.0-16.0) % Plt Count 293 (160-400) X10*3/uL MPV 8.9 L (9.4-12.4) fL Immature Gran % (Auto) 0.3 (0.0-0.4) % Neut % (Auto) 73.1 H (45-73) % Lymph % (Auto) 16.8 L (20-40) % Dare % (Auto) 8.7 (2-11) % Eos % (Auto) 1.0 (0-4) % Baso % (Auto) 0.1 (0-2) % Lymph # (Auto) 1.7 (1.2-4.9) X10*3/uL Dare # (Auto) 0.9 (0.1-1.2) X10*3/uL Eos # (Auto) 0.1 (0.0-0.4) X10*3/uL Baso # (Auto) 0.0 (0.0-0.2) X10*3/uL Abs Immat Gran (auto) 0.03 (0.00-0.03) X10*3/uL Absolute Neuts (auto) 7.4 (2.0-8.3) x10*3/uL Absolute Nucleated RBC 0.000 (0.0-0.012) X10*3/uL Nucleated RBC % (auto) 0.0 (0.0-0.2) /100WBC ESR 14 (0-15) MM/HR Sodium 135 (135-145) mmol/L Potassium 4.4 (3.3-5.1) mmol/L Chloride 98 (96-108) mmol/L Carbon Dioxide 27 (22-29) mmol/L Anion Gap 14 (12-20) BUN 8 L (9-16) mg/dL Creatinine 1.12 (0.5-1.4) mg/dL Estim Creat Clear Calc 57.2 Estimated GFR > 60 Random Glucose 162 H (60-115) mg/dL Calcium 9.3 (8.4-10.2) mg/dL Magnesium 1.7 (1.6-2.6) mg/dL Total Bilirubin 0.9 (0.0-1.0) mg/dL AST 16 (5-37) U/L ALT 15 (0-40) U/L Alkaline Phosphatase 119 H (39-117) U/L C-Reactive Protein 2.56 H (< or = 0.50) mg/dL Total Protein 7.7 (6.5-8.0) g/dL Albumin 4.1 (3.5-5.0) g/dL Urine Color Yellow Urine Appearance Clear Urine pH 6.5 (5.0-9.0) Ur Specific [place] <= 1.005 (1.005-1.025) Urine Protein Negative (Neg-Trace) mg/dL Urine Glucose (UA) 500 H (Negative) mg/dL Urine Ketones Negative (Negative) mg/dL Urine Blood Negative (Negative) Urine Nitrite Negative (Negative) Ur Leukocyte Esterase Negative (Negative) Independent Interpretation I performed an independent interpretation of an: CT Scan Radiology Impression Discussion of test interpretation with radiology: I have reviewed the radiologist's reading. Independent Historian Clinical information obtained from an independent historian. History obtained from or confirmed by: Spouse External Record Review External record reviewed: Inpatient record Discharge Plan Discharge Clinical Impression: Acute urinary retention Acute hip pain Qualifiers: Laterality: right Qualified Code(s): M25.551 - Pain in right hip Patient Disposition: Home, Self-Care Instructions: Howe Catheter Placement and Care (ED), Hip Pain (ED) Additional Instructions: catheter to stay in until you see your doctor or a urologist - please call urologist tomorrow morning for appointment. return for worsening pain, numbness, weakness, fevers, vomiting, or any other concerns. cat?ter para permanecer hasta que lara a campbell m?dico o ur?logo; llame al ur?logo ma?holly por la ma?holly para programar gaye weston. Regrese si el dolor empeora, entumecimiento, debilidad, fiebre, v?mitos o cualquier otra inquietud. Prescriptions: New lidocaine 5 % adhesive patch,medicated 1 patch topical DAILY Qty: 30 0RF Rx Instructions: leave on most painful area for up to 12 hrs cyclobenzaprine 10 mg tablet 10 mg PO TID PRN (Reason: muscle spasm) Qty: 14 0RF No Action meclizine 25 mg tablet 25 mg PO TID PRN (Reason: dizziness) Qty: 60 11RF (DME) blood-glucose meter [OneTouch Ultra2 Meter] [facility] See Rx Instructions .Route Qty: 1 0RF Rx Instructions: test 3 times per day (DME) lancets [OneTouch UltraSoft 2 Lancet] 30 gauge misc See Rx Instructions .Route Qty: 100 5RF Rx Instructions: As directed ([facility]) OneTouch Ultra Test Strip See Rx Instructions .Route Qty: 100 5RF Rx Instructions: test 3 times per day albuterol sulfate [Ventolin HFA] 90 mcg/actuation HFA aerosol inhaler 2 puff PO Q4-6H PRN (Reason: for wheezing) Qty: 18 0RF Trulicity 1.5 mg/0.5 mL pen injector 1.5 mg subcut QWEEK Qty: 2 0RF fluticasone furoate-vilanterol [Breo Ellipta] 200-25 mcg/dose blister with device 1 inh inhalation DAILY Qty: 60 3RF montelukast [Singulair] 10 mg tablet 10 mg PO BEDTIME 90 Days Qty: 90 1RF omeprazole 20 mg capsule,delayed release(DR/EC) 20 mg PO DAILY 90 Days Qty: 90 1RF Lantus Solostar U-100 Insulin 100 unit/mL (3 mL) insulin pen 10 unit subcut DAILY 30 Days Qty: 3 3RF amitriptyline 25 mg tablet 25 mg PO BEDTIME Qty: 90 2RF cyclobenzaprine 10 mg tablet 10 mg PO TID PRN (Reason: muscle spasm) Qty: 10 1RF levetiracetam [Keppra] 500 mg tablet 500 mg PO Q12H Qty: 60 0RF acetaminophen [Tylenol] 325 mg capsule 650 mg PO Q6H PRN (Reason: pain) Qty: 30 0RF triamcinolone acetonide 0.5 % cream 1 appl topical BID Qty: 15 0RF (DME) Compact Compressor Nebulizer Mis See Rx Instructions .Route Qty: 1 0RF Rx Instructions: As directed (DME) nebulizer accessories Kit See Rx Instructions .Route Qty: 1 0RF Rx Instructions: As directed aspirin 81 mg tablet,delayed release (DR/EC) 81 mg PO DAILY Qty: 90 3RF atorvastatin 40 mg tablet 40 mg PO BEDTIME Qty: 90 3RF cholecalciferol (vitamin D3) 50 mcg (2,000 unit) capsule 2,000 unit PO DAILY Qty: 90 2RF lisinopril 2.5 mg tablet 2.5 mg PO DAILY 90 Days Qty: 90 3RF metformin 1,000 mg tablet 1,000 mg PO BID 90 Days Qty: 180 2RF sertraline 100 mg tablet 100 mg PO DAILY 90 Days Qty: 90 1RF gabapentin 100 mg capsule 100 mg PO BID Qty: 180 1RF tramadol 50 mg tablet 50 mg PO BID PRN (Reason: pain) 30 Days Qty: 60 1RF (DME) pen needle, diabetic [BD Ultra-Fine Mini Pen Needle] 31 gauge x 3/16 needle See Rx Instructions .Route Qty: 100 3RF Rx Instructions: As directed Inject LAntus 10 u QD Referrals: Silvio Lamas MD [Physician] - (urology call to schedule appointment) Print Language: [place]
[2023-08-31 18:58] LABS: MANUAL DIFF FLAG NO
[2023-08-31 19:01] LABS: Appearance Urine Clear; Color Urine Yellow; Glucose Urine UA 500 mg/dL (Negative); Leukocyte Esterase Urine Negative (Negative); Nitrite Urine Negative (Negative); PH 6.5 (5.0-9.0); Specific Gravity - Urine <= 1.005 (1.005-1.025); Urine Blood Negative (Negative); Urine Ketones Negative (Negative); Urine Protein Negative (Neg-Trace)
[2023-08-31 19:04] LABS: Basophils Percent Auto 0.1 % (0-2); Eosinophils Absolute Auto 0.1 X10*3/uL (0.0-0.4); Hematocrit 37.2 % (42.0-52.0); Hemoglobin 12.4 g/dl (14.0-18.0); Imm Gran Abs Auto 0.03 X10*3/uL (0.00-0.03); Imm Gran Pct Auto 0.3 % (0.0-0.4); Lymphocytes Absolute Auto 1.7 X10*3/uL (1.2-4.9); Lymphocytes Percent Auto 16.8 % (20-40); Mean Corpuscular HGB Conc 33.3 g/dl (31.0-36.0); Mean Corpuscular Hemoglobin 28.4 pg (27.0-33.0); Mean Corpuscular Volume 85.3 fL (80.0-98.0); Mean Platelet Volume 8.9 fL (9.4-12.4); Monocytes Absolute Auto 0.9 X10*3/uL (0.1-1.2); Monocytes Percent Auto 8.7 % (2-11); Neutrophils Absolute Auto 7.4 x10*3/uL (2.0-8.3); Neutrophils Percent Auto 73.1 % (45-73); Platelet Count 293 X10*3/uL (160-400); Red Blood Count 4.36 X10*6/uL (4.60-5.80); White Blood Count 10.1 X10*3/uL (4.8-10.8)
[2023-08-31 19:15] LABS: Alanine Aminotransferase 15 U/L (0-40); Albumin Level 4.1 g/dL (3.5-5.0); Alkaline Phosphatase 119 U/L (39-117); Anion Gap 14 (12-20); Aspartate Amino Transferase 16 U/L (5-37); Bilirubin Total 0.9 mg/dL (0.0-1.0); Blood Urea Nitrogen 8 mg/dL (9-16); Calcium 9.3 mg/dL (8.4-10.2); Carbon Dioxide 27 mmol/L (22-29); Chloride 98 mmol/L (96-108); Creatinine Clr Calc Pharmacy 57.2; Estimated Glomerular Filt Rate > 60; Glucose Random 162 mg/dL (60-115); Magnesium 1.7 mg/dL (1.6-2.6); Potassium 4.4 mmol/L (3.3-5.1); Sodium 135 mmol/L (135-145); Total Protein 7.7 g/dL (6.5-8.0)
[2023-08-31 20:36] VITALS: BP 124/71; PULSE 92; RESP 16; TEMP 37.5; O2SAT 100
[2023-08-31] MEDS: oxyCODONE HCl Immed Release 5 MG TABLET 10 MG PO (21:15)
[2023-08-31] MEDS: Lidocaine HCl 2 % Urojet 10 ML JEL.PF.APP TOPICAL (22:44)
[2023-08-31 22:53] VITALS: BP 113/56; PULSE 99; O2SAT 97
[2023-08-31] MEDS: Morphine Sulfate 4 MG/ML CARTRIDGE IM (23:28)
[2023-08-31 23:35] LABS: C Reactive Protein 2.56 mg/dL (< or = 0.50)
[2023-08-31 23:52] LABS: Erythrocyte Sedimentation Rate 14 MM/HR (0-15)
== END 2023-09-01 00:55 | disposition home or self-care (01) ==
PROVIDERS: Physician Assistant Medical; Emergency Provider Emergency Medicine
DX: R33.9 Retention of urine, unspecified (principal); M25.551 Pain in right hip; E11.9 Type 2 diabetes mellitus without complications; I10 Essential (primary) hypertension; E78.00 Pure hypercholesterolemia, unspecified; Z79.4 Long term (current) use of insulin; Z79.899 Other long term (current) drug therapy; Z79.85 Long-term (current) use of injectable non-insulin antidiabetic drugs; Z79.02 Long term (current) use of antithrombotics/antiplatelets
CPT/HCPCS: 36415; 51702; 74176; 80053; 81003; 83735; 85025; 85652; 86140; 96372; 99284; 99285; J2270

== ENCOUNTER 2023-09-01 21:48 | Emergency (ER) | payer OTHER, SELFPAY ==
[2023-09-01 22:05] VITALS: BP 140/65; PULSE 98; RESP 17; TEMP 36.8; O2SAT 98
[2023-09-01 22:09] VITALS: BP 158/70; BMI 29.7
--- NOTE | 2023-09-01 22:16 | ED.MALEGU ---
HPI - Male Genitourinary General Chief complaint: Urogenital-Male Stated complaint: R FLANK PAIN,BLADDER PAIN Time Seen by Provider: 09/01/23 22:10 Source: patient Mode of arrival: ambulatory Limitations: no limitations History of Present Illness HPI Narrative: Patient is 73 years old with history of BPH diabetes asthma seizures CVA diabetic neuropathy hypertension and urinary retention yesterday and Prieto catheter was placed complaining of pain in right gluteal area and right lower back radiating to the left thigh for last 3 days no urinary complaints at this time no recent change no history of similar pain in the past Related Data Previous Rx's Medication Instructions Recorded nebulizer accessories #1 ea 07/09/21 nebulizers (Compact Compressor #1 ea 07/09/21 Nebulizer) triamcinolone acetonide 0.5 % 1 appl topical BID #15 grams 08/22/21 topical cream aspirin 81 mg tablet,delayed 81 mg PO DAILY #90 tabs 12/03/22 release atorvastatin 40 mg tablet 40 mg PO BEDTIME #90 tabs 12/03/22 cholecalciferol (vitamin D3) 50 2,000 unit PO DAILY #90 caps 12/03/22 mcg (2,000 unit) capsule lisinopril 2.5 mg tablet 2.5 mg PO DAILY 90 days #90 tabs 12/03/22 metformin 1,000 mg tablet 1,000 mg PO BID 90 days #180 tabs 12/03/22 sertraline 100 mg tablet 100 mg PO DAILY 90 days #90 tabs 12/03/22 meclizine 25 mg tablet 25 mg PO TID PRN dizziness #60 tabs 01/12/23 blood sugar diagnostic (OneTouch #100 ea 01/14/23 Ultra Test strips) blood-glucose meter (OneTouch #1 ea 01/14/23 Ultra2 Meter) lancets 30 gauge (OneTouch #100 ea 01/14/23 UltraSoft 2 Lancet) albuterol sulfate 90 mcg/actuation 2 puff PO Q4-6H PRN for wheezing 01/20/23 aerosol inhaler (Ventolin HFA) #18 grams acetaminophen 325 mg capsule 650 mg (2 x 325 mg) PO Q6H PRN 02/04/23 (Tylenol) pain #30 caps pen needle, diabetic 31 gauge x #100 ea 03/13/23 3/16 (BD Ultra-Fine Mini Pen Needle) gabapentin 100 mg capsule 100 mg PO BID #180 caps 04/16/23 tramadol 50 mg tablet 50 mg PO BID PRN pain 30 days #60 04/16/23 tabs dulaglutide 1.5 mg/0.5 mL 1.5 mg (0.5 mL) subcut QWEEK #2 mL 05/15/23 subcutaneous pen injector (Trulicity) fluticasone furoate 200 1 inh inhalation DAILY #60 ea 05/31/23 mcg-vilanterol 25 mcg/dose inhalation powder (Breo Ellipta) montelukast 10 mg tablet 10 mg PO BEDTIME 90 days #90 tabs 06/03/23 (Singulair) omeprazole 20 mg capsule,delayed 20 mg PO DAILY 90 days #90 caps 06/03/23 release insulin glargine 100 unit/mL (3 10 unit (0.1 mL) subcut DAILY 30 06/15/23 mL) subcutaneous pen ( #3 mL Solostar U-100 Insulin) levetiracetam 500 mg tablet 500 mg PO Q12H #60 tabs 06/19/23 (Keppra) amitriptyline 25 mg tablet 25 mg PO BEDTIME #90 tabs 07/16/23 cyclobenzaprine 10 mg tablet 10 mg PO TID PRN muscle spasm #10 07/16/23 tabs cyclobenzaprine 10 mg tablet 10 mg PO TID PRN muscle spasm #14 09/01/23 tabs lidocaine 5 % topical patch 1 patch topical DAILY #30 ea 09/01/23 morphine 15 mg immediate release 15 mg PO Q8H PRN pain #6 tabs 09/01/23 tablet tamsulosin 0.4 mg capsule (Flomax) 0.4 mg PO BEDTIME #30 caps 09/01/23 Allergies Allergy/AdvReac Type Severity Reaction Status Date / Time aspirin [ASPIRIN] Allergy Intermediate RASH WITH Verified 09/01/23 22:16 HIGH DOSES Penicillins Allergy Mild HIVES Verified 09/01/23 22:16 phenytoin [From Dilantin] Allergy Mild BURNING Verified 09/01/23 22:16 SENSATION IN BODY butalbital [BUTALBITAL] Allergy Unknown HIVES Verified 09/01/23 22:16 thimerosal [THIMEROSAL] Allergy Unknown UNKNOWN Verified 09/01/23 22:16 doxycycline AdvReac Intermediate penile Verified 09/01/23 22:16 rash? [place] Allergy Unknown Unknown Uncoded 09/01/23 22:16 MOTRIN Allergy Unknown hives Uncoded 08/26/23 10:52 Review of Systems Review of Systems: Yes all other systems are reviewed and are negative [facility] Past Medical History Medical History Testicular pain Skin cyst Stroke Lipoma of abdominal wall History of carpal tunnel syndrome BERNARD positive Inguinal hernia, bilateral BPH (benign prostatic hyperplasia) Brain tumor Hypercholesterolemia Obstructive sleep apnea Vitamin D deficiency Obesity (BMI 30-39.9) Vitamin B12 deficiency GERD (gastroesophageal reflux disease) Grand mal seizure disorder Erectile dysfunction Osteoarthritis COPD (chronic obstructive pulmonary disease) Tennis elbow Calcaneal spur, right RLS (restless legs syndrome) Pulmonary nodule Insomnia Essential hypertension Diabetes mellitus with hyperglycemia Migraine Surgical History Hx of carpal tunnel repair History of diverticulosis Hx of colonoscopy History of elbow surgery Hx of foot surgery Hx of brain surgery History of partial gastrectomy History of right inguinal hernia repair Hx of prostate biopsy Family History Family History Father Diabetes Throat cancer Heart disease Mother Ovarian cancer Social History Social History Household Members: Spouse Housing: Apartment Are you a primary respiratory care technician to a significant other at home: No Do you presently have visiting nurse or other home services: Yes ([facility]NA) Alcohol intake: never Patient Tobacco Use Status: Never used Tobacco Smoked in Last 30 Days: No e-Cigarette/Vaping Use: Never Used Second Hand Smoke Exposure: No Use of substances other than those prescribed or required for medical reasons: No Advance Directives: Yes Advance Directives on File: Yes Advance Directives Date on File: 06/13/21 service: No Current occupational status: retired Cognitive needs: No Hearing needs: No Vision needs: No Physical Exam Vital Signs: Vital Signs: Last Vital Signs Temp 98.3 F 09/01/23 22:05 Pulse 98 09/01/23 22:05 Resp 17 09/01/23 22:05 BP 140/65 H 09/01/23 22:05 Pulse Ox 98 09/01/23 22:05 O2 Del Method Room Air 09/01/23 22:05 BMI result Body Mass Index 29.7 Appearance: Alert. Oriented X3. in moderate acute distress. Eyes: PERRLA, No Nystagmus ENT: Pharynx normal. Oral Mucosa moist Neck: Normal inspection. Neck supple. CVS: Normal heart rate and rhythm. Pulses normal. Respiratory: No respiratory distress. Equal air entry bilateral, no wheezing/rales/rhonchi Abdomen: Soft and nontender. Bowel sounds are present, no mass palpable, no CVA tenderness Skin: Skin warm and dry. Normal skin color. Normal skin turgor. Extremities: No lower extremity edema. No calf tenderness feel worse and pace test and [place] testpositive piriformis muscle strain Neuro: Oriented X 3. No motor deficit. No sensory deficit Medications Administered Discontinued Medications Generic Name Dose Route Start Last Admin Trade Name Freq PRN Reason Stop Dose Admin Morphine Sulfate 15 mg 09/01/23 22:39 09/01/23 22:51 Morphine Sulfate Immed Release 15 Mg Tablet PO 09/01/23 22:40 15 mg ONCE ONE Administration Tamsulosin HCl 0.4 mg 09/01/23 23:34 09/01/23 23:46 Tamsulosin Hcl 0.4 Mg Capsule PO 09/01/23 23:35 0.4 mg ONCE ONE Administration Medical Decision Making Medical Decision Making [facility] Narrative: Patient clinically with right piriformis syndrome already on muscle relaxant will give him pain medication advised to follow with PCP Lab Data [facility] Lab Attestation statement: I reviewed the patient's lab results. Labs: Lab Results 09/01/23 Range/Units 22:19 Urine Color Yellow Urine Appearance Clear Urine pH 6.5 (5.0-9.0) Ur Specific [place] <= 1.005 (1.005-1.025) Urine Protein Negative (Neg-Trace) mg/dL Urine Glucose (UA) 100 H (Negative) mg/dL Urine Ketones Negative (Negative) mg/dL Urine Blood Large (3+) H (Negative) Urine Nitrite Negative (Negative) Ur Leukocyte Esterase Trace H (Negative) Urine RBC 11-20 H (0-2) /HPF Urine WBC 0-5 (0-5) /HPF Ur Squamous Epith Cells 0-2 (0-2) /HPF Urine Bacteria None Seen (None Seen) Hyaline Casts 0-2 (0-2) /LPF Discharge Plan Discharge Clinical Impression: Piriformis syndrome of right side Patient Disposition: Home, Self-Care Instructions: Piriformis Syndrome (ED) Additional Instructions: Continue muscle relaxant, start taking pain medication as prescribed Rest your right hip Follow with PCP if not better Take medication for enlarged prostate Report to the ER if recurrence if difficulty in urination Prescriptions: New morphine 15 mg tablet 15 mg PO Q8H PRN (Reason: pain) Qty: 6 0RF Rx Instructions: Partial Fill upon patient request. tamsulosin [Flomax] 0.4 mg capsule 0.4 mg PO BEDTIME Qty: 30 0RF No Action meclizine 25 mg tablet 25 mg PO TID PRN (Reason: dizziness) Qty: 60 11RF (DME) blood-glucose meter [[employer] Ultra2 Meter] Misc See Rx Instructions .Route Qty: 1 0RF Rx Instructions: test 3 times per day (DME) lancets [OneTouch UltraSoft 2 Lancet] 30 gauge misc See Rx Instructions .Route Qty: 100 5RF Rx Instructions: As directed (DME) OneTouch Ultra Test Strip See Rx Instructions .Route Qty: 100 5RF Rx Instructions: test 3 times per day albuterol sulfate [Ventolin HFA] 90 mcg/actuation HFA aerosol inhaler 2 puff PO Q4-6H PRN (Reason: for wheezing) Qty: 18 0RF Trulicity 1.5 mg/0.5 mL pen injector 1.5 mg subcut QWEEK Qty: 2 0RF fluticasone furoate-vilanterol [Breo Ellipta] 200-25 mcg/dose blister with device 1 inh inhalation DAILY Qty: 60 3RF montelukast [Singulair] 10 mg tablet 10 mg PO BEDTIME 90 Days Qty: 90 1RF omeprazole 20 mg capsule,delayed release(DR/EC) 20 mg PO DAILY 90 Days Qty: 90 1RF Lantus Solostar U-100 Insulin 100 unit/mL (3 mL) insulin pen 10 unit subcut DAILY 30 Days Qty: 3 3RF amitriptyline 25 mg tablet 25 mg PO BEDTIME Qty: 90 2RF cyclobenzaprine 10 mg tablet 10 mg PO TID PRN (Reason: muscle spasm) Qty: 10 1RF levetiracetam [Keppra] 500 mg tablet 500 mg PO Q12H Qty: 60 0RF lidocaine 5 % adhesive patch,medicated 1 patch topical DAILY Qty: 30 0RF Rx Instructions: leave on most painful area for up to 12 hrs cyclobenzaprine 10 mg tablet 10 mg PO TID PRN (Reason: muscle spasm) Qty: 14 0RF acetaminophen [Tylenol] 325 mg capsule 650 mg PO Q6H PRN (Reason: pain) Qty: 30 0RF triamcinolone acetonide 0.5 % cream 1 appl topical BID Qty: 15 0RF (DME) Compact Compressor Nebulizer Misc See Rx Instructions .Route Qty: 1 0RF Rx Instructions: As directed (DME) nebulizer accessories Kit See Rx Instructions .Route Qty: 1 0RF Rx Instructions: As directed aspirin 81 mg tablet,delayed release (DR/EC) 81 mg PO DAILY Qty: 90 3RF atorvastatin 40 mg tablet 40 mg PO BEDTIME Qty: 90 3RF cholecalciferol (vitamin D3) 50 mcg (2,000 unit) capsule 2,000 unit PO DAILY Qty: 90 2RF lisinopril 2.5 mg tablet 2.5 mg PO DAILY 90 Days Qty: 90 3RF metformin 1,000 mg tablet 1,000 mg PO BID 90 Days Qty: 180 2RF sertraline 100 mg tablet 100 mg PO DAILY 90 Days Qty: 90 1RF gabapentin 100 mg capsule 100 mg PO BID Qty: 180 1RF tramadol 50 mg tablet 50 mg PO BID PRN (Reason: pain) 30 Days Qty: 60 1RF (DME) pen needle, diabetic [BD Ultra-Fine Mini Pen Needle] 31 gauge x 3/16 needle See Rx Instructions .Route Qty: 100 3RF Rx Instructions: As directed Inject LAntus 10 u QD Interventions: ED Discharge Assessment Last Done: 09/02/23 00:07 Discharge Date/Time: 09/02/23 00:10
[2023-09-01 22:28] LABS: Appearance Urine Clear; Color Urine Yellow; Glucose Urine UA 100 mg/dL (Negative); Leukocyte Esterase Urine Trace (Negative); Nitrite Urine Negative (Negative); PH 6.5 (5.0-9.0); Specific Gravity - Urine <= 1.005 (1.005-1.025); UMIC TRIGGER UACC YES; Urine Blood Large (3+) (Negative); Urine Ketones Negative (Negative); Urine Protein Negative (Neg-Trace)
[2023-09-01 22:30] LABS: Bacteria Urine None Seen (None Seen); Hyaline Casts Urine 0-2 /LPF (0-2); Squamous Epithelial Cell Urine 0-2 /HPF (0-2); WBC Urine 0-5 /HPF (0-5)
[2023-09-01] MEDS: Morphine Sulfate Immed Release 15 MG TABLET PO (22:51)
--- NOTE | 2023-09-01 22:55 | PC.NURSE ---
Pt reports 10/10 back pain, took morphine without difficulty. Catheter draining clear yellow urine at this time
[2023-09-01] MEDS: Tamsulosin HCL 0.4 MG CAPSULE PO (23:46)
== END 2023-09-02 00:10 | disposition home or self-care (01) ==
PROVIDERS: Emergency Provider Internal Medicine; PCP Internal Medicine
DX: G57.01 Lesion of sciatic nerve, right lower limb (principal); E11.9 Type 2 diabetes mellitus without complications; I10 Essential (primary) hypertension; E78.00 Pure hypercholesterolemia, unspecified; Z86.73 Personal history of transient ischemic attack (TIA), and cerebral infarction without residual deficits; Z79.899 Other long term (current) drug therapy; Z79.84 Long term (current) use of oral hypoglycemic drugs; Z79.02 Long term (current) use of antithrombotics/antiplatelets; Z79.85 Long-term (current) use of injectable non-insulin antidiabetic drugs; Z79.4 Long term (current) use of insulin
CPT/HCPCS: 81001; 99283; 99284

== ENCOUNTER 2023-09-23 14:48 | Outpatient (AMB) | payer OTHER, SELFPAY ==
[2023-09-23 14:49] VITALS: BP 144/88; PULSE 84; O2SAT 100; BMI 29.5
--- NOTE | 2023-09-23 14:49 | MHC.PC.OV ---
Vital Signs 09/23/23 14:49 Height 5 ft 4 in Weight 172 lb BMI 29.5 BP 144/88 H Blood Pressure Location Lt brachial Position Sitting Pulse 84 Pulse Source Pulse Oximeter Pulse Oximetry (%) 100 Oxygen Delivery Method Room Air Intake Visit Reasons: Ed follow up Intake Note: Patient is here to follow-up after a visit the emergency department at [facility] on 09/01/23 Environmental Protection Specialist Required: No Allergies aspirin [ASPIRIN] Allergy (Intermediate, Verified 09/23/23 14:50) RASH WITH HIGH DOSES Penicillins Allergy (Mild, Verified 09/23/23 14:50) HIVES phenytoin [From Dilantin] Allergy (Mild, Verified 09/23/23 14:50) BURNING SENSATION IN BODY butalbital [BUTALBITAL] Allergy (Unknown, Verified 09/23/23 14:50) HIVES thimerosal [THIMEROSAL] Allergy (Unknown, Verified 09/23/23 14:50) UNKNOWN doxycycline Adverse Reaction (Intermediate, Verified 09/23/23 14:50) penile rash? [place] Allergy (Unknown, Uncoded 09/23/23 14:50) Unknown MOTRIN Allergy (Unknown, Uncoded 09/23/23 14:50) hives Medication List - Last Reconciled 09/23/23 by Den Leal MD acetaminophen (Tylenol) 650 mg (2 x 325 mg) PO Q6H PRN albuterol sulfate 90 mcg/actuation (Ventolin HFA) 2 puffs PO Q4-6H PRN amitriptyline 25 mg PO BEDTIME aspirin 81 mg PO DAILY atorvastatin 40 mg PO BEDTIME blood sugar diagnostic ([employer] Ultra Test strips) test 3 times per day blood-glucose meter (OneTouch Ultra2 Meter) test 3 times per day cholecalciferol (vitamin D3) 2,000 units PO DAILY cyclobenzaprine 10 mg PO TID PRN cyclobenzaprine 10 mg PO TID PRN dulaglutide (Trulicity) 1.5 mg (0.5 mL) subcut QWEEK fluticasone furoate-vilanterol 200-25 mcg/dose (Breo Ellipta) 1 inh inhalation DAILY gabapentin 100 mg PO BID insulin glargine (Lantus Solostar U-100 Insulin) 10 units (0.1 mL) subcut DAILY 30 days lancets (OneTouch UltraSoft 2 Lancet) As directed levetiracetam (Keppra) 500 mg PO Q12H lidocaine 5% 1 patch topical DAILY lisinopril 2.5 mg PO DAILY 90 days meclizine 25 mg PO TID PRN metformin 1,000 mg PO BID 90 days montelukast (Singulair) 10 mg PO BEDTIME 90 days morphine 15 mg PO Q8H PRN nebulizer accessories As directed nebulizers (Compact Compressor Nebulizer) As directed omeprazole 20 mg PO DAILY 90 days pen needle, diabetic (BD Ultra-Fine Mini Pen Needle) As directed Inject LAntus 10 u QD sertraline 100 mg PO DAILY 90 days tamsulosin (Flomax) 0.4 mg PO BEDTIME tramadol 50 mg PO BID PRN 30 days triamcinolone acetonide 0.5% 1 appl topical BID Tobacco use date assessed: 09/23/23 Fall risk assessment: No Falls in past year Last assessed Fall Risk: 09/23/23 Dental Screening Dental Screen Date: 09/23/23 HPI Ed follow up HPI Details 73-year-old overweight male with a history of seizures diabetes mellitus hypertension GERD hypercholesterolemia recurrent major depression coming in for follow-up. Last seen in June 2023. Noted ER visit for right flank pain in August 2023 diagnosis of piriformis syndrome on the right side and was given muscle relaxant. Two days before that right hip pain diagnosis of urinary retention and has been catheterized. Patient was advised to follow-up with urology. Patient also had some notes for right wrist primary osteoarthritis from the ortho advised injections with Depo-Medrol and lidocaine. July ER visit for fall with right anterior tibia pain. With the frequency patient had an ultrasound done showing mild diffuse irregularity of the bladder wall but the and prostate is enlarged patient has been referred to Urology and has an upcoming schedule.. Patient has been moving and has lost a lot of the medication hence the blood sugar to be elevated. Patient does need a refill on the Urology medication also he does have a schedule anyway. Otherwise patient also has mentioned that he is seeing something in his vision that is going to the back and get him frustrated and heavy headache because he does not know what that is. [facility] Medical History (Updated 09/23/23 @ 15:26 by Den Leal MD) Frequency of micturition Testicular pain Skin cyst Stroke Lipoma of abdominal wall History of carpal tunnel syndrome BERNARD positive Inguinal hernia, bilateral BPH (benign prostatic hyperplasia) Brain tumor Hypercholesterolemia Obstructive sleep apnea Vitamin D deficiency Obesity (BMI 30-39.9) Vitamin B12 deficiency GERD (gastroesophageal reflux disease) Grand mal seizure disorder Erectile dysfunction Osteoarthritis COPD (chronic obstructive pulmonary disease) Tennis elbow Calcaneal spur, right RLS (restless legs syndrome) Pulmonary nodule Insomnia Essential hypertension Diabetes mellitus with hyperglycemia Migraine Surgical History Hx of carpal tunnel repair History of diverticulosis Hx of colonoscopy History of elbow surgery Hx of foot surgery Hx of brain surgery History of partial gastrectomy History of right inguinal hernia repair Hx of prostate biopsy Family History Father Diabetes Throat cancer Heart disease Mother Ovarian cancer Social History Household Members: Spouse Housing: Apartment Are you a primary transitional care nurse to a significant other at home: No Do you presently have visiting nurse or other home services: Yes (VNA) Alcohol intake: never Patient Tobacco Use Status: Never used Tobacco e-Cigarette/Vaping Use: Never Used Second Hand Smoke Exposure: No Advance Directives Date on File: 06/13/21 service: No Current occupational status: retired Cognitive needs: No Hearing needs: No Vision needs: No Questionnaire Thrive Questionnaire Date Thrive assessed: 09/23/23 AUDIT C Alcohol Use Questionnaire (AUDIT-C) 1. How often do you have a drink containing alcohol?: Monthly or less 2. How many drinks containing alcohol do you have on a typical day when you are drinking?: 1 or 2 3. How often do you have six or more drinks on one occasion?: Never Total Score: 1 LANA-7 AMB Questionnaire LANA-7 Date LANA - 7 assessed: 09/23/23 Source: Developed by Drs. Bonifacio Disla, Cristine Card, Orville Morley and colleagues, with an educational jackson from [employer] Physical exam (Primary Care) Vital Signs: Last Vital Signs Pulse 84 09/23/23 14:49 BP 144/88 H 09/23/23 14:49 Pulse Ox 100 09/23/23 14:49 Oxygen Delivery Method Room Air 09/23/23 14:49 BMI result Body Mass Index 29.5 Tobacco/Smoking Status: Tobacco use Status Tobacco use date assessed 09/23/23 09/23/23 14:50 Patient Tobacco Use Status Never used Tobacco 09/23/23 14:50 e-Cigarette/Vaping Use Never Used 09/23/23 14:50 Thrive Assessment: Date of Thrive Assessment Date Thrive assessed 09/23/23 09/23/23 14:50 Const General: alert; No acute distress Eyes Conjunctivae: conjunctivae normal Resp Auscultation: clear to auscultation bilaterally Cardio Rate: regular rate Rhythm: regular rhythm GI Inspection: Yes normal to inspection Extrem General: Yes normal to inspection and No edema Results AMB Hemoglobin A1c AMB Hemoglobin A1c 9.5 % Last Edit by UDAY De La Cruz on 09/23/23 15:04 Results Reviewed Results Reviewed: Laboratory Last Values Hgb A1c (Clinic) 9.5 % (4.0-6.0) H 09/23/23 14:51 Assessment and Plan Assessment & Plan (1) BPH (benign prostatic hyperplasia): Code(s): N40.0 - Benign prostatic hyperplasia without lower urinary tract symptoms Plan: Patient was referred to Urology and is on Flomax right now. (2) Asthma: Code(s): J45.909 - Unspecified asthma, uncomplicated Plan: Continue with inhaler as needed (3) Recurrent major depression: Comment: suicidal ideation 05/2012 Code(s): F33.9 - Major depressive disorder, recurrent, unspecified Plan: Continue with counseling and therapy (4) GERD (gastroesophageal reflux disease): Code(s): K21.9 - Gastro-esophageal reflux disease without esophagitis Plan: Avoid the foods that causes that usually spicy foods, tomato products, juices, coffee, soda and foods that your sensitive to. After eating do not lie down, allow 3-4 hours before in lie down. And keep the head of bed above 30 degrees to avoid the acid from going up. (5) Essential hypertension: Code(s): I10 - Essential (primary) hypertension Plan: Continue with blood pressure medication. 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 Refilled sertraline 100 mg PO DAILY 90 days 90 tabs 1RF N40.0 - Benign prostatic hyperplasia without lower urinary tract symptoms tamsulosin (Flomax) 0.4 mg PO BEDTIME 30 caps 2RF N40.0 - Benign prostatic hyperplasia without lower urinary tract symptoms Discontinued cyclobenzaprine Discontinued Reason: Doctor's Order 10 mg PO TID PRN 10 tabs 1RF muscle spasm E11.65 - Type 2 diabetes mellitus with hyperglycemia, 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
== END 2023-09-23 15:34 | disposition home or self-care (01) ==
PROVIDERS: PCP Internal Medicine; Visit Provider Internal Medicine
DX: N40.0 Benign prostatic hyperplasia without lower urinary tract symptoms (principal); J45.909 Unspecified asthma, uncomplicated; F33.9 Major depressive disorder, recurrent, unspecified; K21.9 Gastro-esophageal reflux disease without esophagitis; I10 Essential (primary) hypertension; R44.3 Hallucinations, unspecified; E11.65 Type 2 diabetes mellitus with hyperglycemia
CPT/HCPCS: 83036; 99214

== ENCOUNTER 2023-10-12 10:06 | Outpatient (REF) | payer OTHER, SELFPAY ==
[2023-10-12 11:22] LABS: Alanine Aminotransferase 16 U/L (0-40); Albumin Level 3.8 g/dL (3.5-5.0); Alkaline Phosphatase 128 U/L (39-117); Aspartate Amino Transferase 16 U/L (5-37); Bilirubin Direct 0.2 mg/dL (0.0-0.5); Bilirubin Total 0.3 mg/dL (0.0-1.0); Total Protein 7.1 g/dL (6.5-8.0)
== END 2023-10-12 10:07 | disposition home or self-care (01) ==
LOC: HO.LAB 10:06
PROVIDERS: Visit Provider Podiatrist
DX: B35.1 Tinea unguium (principal)
CPT/HCPCS: 36415; 80076

== ENCOUNTER 2023-10-28 14:44 | Outpatient (AMB) | payer OTHER, SELFPAY ==
--- NOTE | 2023-10-28 14:58 | MHC.OFFVIS ---
Intake Intake Visit Reasons: BPH/Incontinence Intake Note: New Patient presents for initial visit for BPH/Incontinence Urology Medications: none Blood Thinner: none PVR: 728ml's; 2nd attempt: 185ml's Department Clerk Required: Yes Department Clerk Name: MAKI TIERNEYRENA Accompanied by: Unknown Allergies aspirin [ASPIRIN] Allergy (Intermediate, Verified 10/28/23 16:49) RASH WITH HIGH DOSES Penicillins Allergy (Mild, Verified 10/28/23 16:49) HIVES phenytoin [From Dilantin] Allergy (Mild, Verified 10/28/23 16:49) BURNING SENSATION IN BODY butalbital [BUTALBITAL] Allergy (Unknown, Verified 10/28/23 16:49) HIVES thimerosal [THIMEROSAL] Allergy (Unknown, Verified 10/28/23 16:49) UNKNOWN doxycycline Adverse Reaction (Intermediate, Verified 10/28/23 16:49) penile rash? [place] Allergy (Unknown, Uncoded 10/28/23 16:49) Unknown MOTRIN Allergy (Unknown, Uncoded 10/28/23 16:49) hives Medication List - Last Reconciled 10/28/23 by REEMA Andrews-RYLAN acetaminophen (Tylenol) 650 mg (2 x 325 mg) PO Q6H PRN albuterol sulfate 90 mcg/actuation (Ventolin HFA) 2 puffs PO Q4-6H PRN amitriptyline 25 mg PO BEDTIME aspirin 81 mg PO DAILY atorvastatin 40 mg PO BEDTIME bethanechol chloride 50 mg PO BID 30 days blood sugar diagnostic ([employer] Ultra Test strips) test 3 times per day blood-glucose meter ([employer]Touch Ultra2 Meter) test 3 times per day cholecalciferol (vitamin D3) 2,000 units PO DAILY cyclobenzaprine 10 mg PO TID PRN dulaglutide (Trulicity) 1.5 mg (0.5 mL) subcut QWEEK fluticasone furoate-vilanterol 200-25 mcg/dose (Breo Ellipta) 1 inh inhalation DAILY gabapentin 300 mg PO BID insulin glargine (Lantus Solostar U-100 Insulin) 10 units (0.1 mL) subcut DAILY 30 days lancets ([employer]Touch UltraSoft 2 Lancet) As directed levetiracetam (Keppra) 500 mg PO Q12H lidocaine 5% 1 patch topical DAILY lisinopril 2.5 mg PO DAILY 90 days meclizine 25 mg PO TID PRN metformin 1,000 mg PO BID 90 days montelukast (Singulair) 10 mg PO BEDTIME 90 days morphine 15 mg PO Q8H PRN nebulizer accessories As directed nebulizers (Compact Compressor Nebulizer) As directed omeprazole 20 mg PO DAILY 90 days pen needle, diabetic (BD Ultra-Fine Mini Pen Needle) As directed Inject LAntus 10 u QD sertraline 100 mg PO DAILY 90 days tramadol 50 mg PO BID PRN 30 days triamcinolone acetonide 0.5% 1 appl topical BID HPI HPI Comments History of Present Illness Details Geovanny is a pleasant 73-year-old Israeli-speaking patient of Dr. Byrne was accompanied by his and granddaughter at today's office visit. He has a past medical history of testicular pain, stroke, lipoma of abdominal wall, carpal tunnel syndrome, BERNARD positive, inguinal hernia, brain tumor with surgical intervention in 1990, hypercholesteremia, obstructive sleep apnea, vitamin-D deficiency, GERD, seizures, erectile dysfunction, osteoarthritis, COPD, restless leg syndrome, insomnia, hypertension, diabetes, and migraines. He presents to the office today for follow-up. Of note, patient was seen by Dr. Lamas approximately 2 years ago for testicular discomfort at which time reassurance was provided. In discussion with the patient today he reports having seeked emergency room care approximately 2 months ago for ongoing generalized pain and vertigo he had been experiencing at which time a Prieto was inserted for incomplete bladder emptying/urinary retention however he reports having reported back to the emergency room 1 day later and Prieto catheter was removed. Recommendations were made for urology referral for further assessment evaluation. In office urinalysis results reviewed with the patient today. On initial postvoid residual 728 mL however patient was able to double void and 2nd attempt at PVR was 185 mL. In discussion with the patient today he reports having been on Flomax prescribed by his PCP however he continues with urinary urgency, urinary frequency, and episodes of incontinence if not near a bathroom. In review of patient's chart it appears PSA 3--0.7. Discussed at length causes and affects of incomplete bladder emptying/urinary retention/overflow incontinence. Discussed affects of diabetes regarding lower urinary tract symptoms patient is experiencing. He otherwise denies hematuria, dysuria, foul smelling urine, changes to urinary stream, flank pain, fever, and or chills. It appears during ER admission CT of the abdomen was ordered and performed. These results reviewed with the patient today. Bilateral kidneys are normal in size, shape, and attenuation. No hydronephrosis, hydroureter, or calculi seen. There is mild bilateral perinephric stranding. The urinary bladder is distended without wall thickening. Mild prostate enlargement noted. He otherwise offers no other issues or concerns at this time. FORMERLY [facility] Medical History Frequency of micturition Testicular pain Skin cyst Stroke Lipoma of abdominal wall History of carpal tunnel syndrome BERNARD positive Inguinal hernia, bilateral BPH (benign prostatic hyperplasia) Brain tumor Hypercholesterolemia Obstructive sleep apnea Vitamin D deficiency Obesity (BMI 30-39.9) Vitamin B12 deficiency GERD (gastroesophageal reflux disease) Grand mal seizure disorder Erectile dysfunction Osteoarthritis COPD (chronic obstructive pulmonary disease) Tennis elbow Calcaneal spur, right RLS (restless legs syndrome) Pulmonary nodule Insomnia Essential hypertension Diabetes mellitus with hyperglycemia Migraine Surgical History Hx of carpal tunnel repair History of diverticulosis Hx of colonoscopy History of elbow surgery Hx of foot surgery Hx of brain surgery History of partial gastrectomy History of right inguinal hernia repair Hx of prostate biopsy Family History Father Diabetes Throat cancer Heart disease Mother Ovarian cancer Social History Household Members: Spouse Housing: Apartment Are you a primary resident care technician to a significant other at home: No Do you presently have visiting nurse or other home services: Yes ([facility]NA) Alcohol intake: never Patient Tobacco Use Status: Never used Tobacco e-Cigarette/Vaping Use: Never Used Second Hand Smoke Exposure: No Advance Directives Date on File: 06/13/21 service: No Current occupational status: retired Cognitive needs: No Hearing needs: No Vision needs: No Review of Systems Const All systems reviewed & are unremarkable except as noted in HPI and below Physical Exam Const General: cooperative, healthy appearing, comfortable, no acute distress, well developed, alert and awake Orientation/consciousness: patient oriented x3 Limitations: no limitations HEENT Head: Yes normal to inspection, Yes normocephalic and Yes atraumatic Ears: hearing grossly normal bilaterally Eyes General: appearance normal, both eyes and all related structures Neck Neck: Yes normal visual inspection and Yes trachea midline Chest Chest palpation & inspection: normal inspection of the chest Resp Effort & Inspection: normal respiratory effort and able to speak in complete sentences Cardio Rate: regular rate GI Inspection: Yes normal to inspection General: Yes no CVA tenderness Back/Spine/Pelvis Back: no CVA tenderness Skin General skin exam: no rashes or lesions noted Neuro General: patient oriented x3 Extrem General: Yes normal to inspection Psych Appearance: grossly normal and well kempt Mental Status: mental status grossly normal Speech and movement: Normal speech and movement present and Clear speech present Affect: normal affect Attitude: cooperative Thought process: Normal thought process present Thought content: Normal thought content present Insight: Fair insight present (Psych) Judgement: Fair judgement present (Psych) Office Procedures Post Void Residual Post Residual Void Post Void Residual (PVR): 728 [id number] Void Residual by ultrasound Results AMB Urinalysis, Automated UA Leukoctes 0 Solo/uL Last Edit by [employer] on 10/28/23 15:29 UA Nitrite Negative Last Edit by [employer] on 10/28/23 15:29 UA Urobilinogen 0.2 mg/dL Last Edit by [employer] on 10/28/23 15:29 UA Protein 0 mg/dL Last Edit by [employer] on 10/28/23 15:29 UA pH 5.5 Last Edit by [employer] on 10/28/23 15:29 UA Blood 0 Willem/uL Last Edit by Data Exped[employer] on 10/28/23 15:29 UA Specific [place] 1.005 Last Edit by Data Exped[employer] on 10/28/23 15:29 UA Ketone Negative Last Edit by Data Exped[employer] on 10/28/23 15:29 UA Bilirubin 0 mg/dL Last Edit by Data Exped[employer] on 10/28/23 15:29 UA Glucose 500 mg/dL Last Edit by Data Exped[employer] on 10/28/23 15:29 Results Reviewed Results Reviewed: Laboratory Last Values Urine pH (Auto) 5.5 10/28/23 15:12 Specific [place] (Auto) 1.005 10/28/23 15:12 Urine Protein (Auto) 0 mg/dL 10/28/23 15:12 Glucose (UA)(Auto) 500 mg/dL 10/28/23 15:12 Urine Ketones (Auto) Negative 10/28/23 15:12 Urine Blood (Auto) 0 Willem/uL 10/28/23 15:12 Urine Nitrite (Auto) Negative 10/28/23 15:12 Urine Bilirubin (Auto) 0 mg/dL 10/28/23 15:12 Urine Urobilinogen (Auto) 0.2 mg/dL 10/28/23 15:12 Leukocyte Esterase (Auto) 0 Solo/uL 10/28/23 15:12 Date of Service: 08/31/23 EXAMINATION: CT ABDOMEN AND PELVIS WITHOUT CONTRAST FINDINGS: LUNG BASES: There is atelectatic changes in the left lung base. Heart size is normal. LIVER, GALLBLADDER, AND BILIARY TREE: The liver is normal in size, shape, and attenuation. No focal hepatic lesion or biliary ductal dilatation is present. The gallbladder is unremarkable with no evidence of radiopaque gallstones, gallbladder wall thickening, or obvious pericholecystic inflammatory changes. PANCREAS: Unremarkable. SPLEEN: Unremarkable. ADRENAL GLANDS: Unremarkable. KIDNEYS AND URETERS: The kidneys are normal in size, shape, and attenuation. No hydronephrosis, hydroureter, or calculi seen. There is mild bilateral perinephric stranding. BLADDER: The urinary bladder is distended without wall thickening. GASTROINTESTINAL TRACT: There is scattered stool and gas seen throughout the colon without any significant distention. The stomach is nondistended. There are surgical tona at the GE junction from previous intervention ABDOMINAL WALL: No significant hernia is appreciated. LYMPH NODES: Normal. VASCULAR: Unremarkable. PELVIC VISCERA: The prostate gland is mildly enlarged with central gland calcification. OSSEOUS STRUCTURES: No aggressive lytic or sclerotic process seen. There is mild ventral spondylosis lower thoracic and upper lumbar spine.. IMPRESSION: No acute intra-abdominal process seen. Moderate constipation. Postsurgical changes at the GE junction from previous intervention. Distended urinary bladder with mild prostate enlargement. Assessment & Plan Assessment & Plan (1) Incomplete bladder emptying: Code(s): R33.9 - Retention of urine, unspecified (2) Enlarged prostate: Code(s): N40.0 - Benign prostatic hyperplasia without lower urinary tract symptoms (3) Lower urinary tract symptoms: Code(s): R39.9 - Unspecified symptoms and signs involving the genitourinary system (4) Urinary urgency: Code(s): R39.15 - Urgency of urination (5) Incontinence: Code(s): R32 - Unspecified urinary incontinence (6) Nocturia: Code(s): R35.1 - Nocturia Plan In office urinalysis results reviewed with the patient today; as noted above. PVR 728ml's; 2nd attempt 185 mLs. Will obtain BUN and creatinine for further assessment evaluation. Discussed at length potential causes of lower urinary tract symptoms patient is experiencing. Will obtain retroperitoneal ultrasound for further assessment evaluation. Will obtain PSA for further assessment evaluation. Stop Flomax Start bethanechol as discussed and prescribed. Discussed at length correlation of diabetes on lower urinary tract symptoms. Discussed, educated, and stressed the importance of double voiding and attempting to sit when voiding to relax pelvis in to assist with incomplete bladder emptying. Discussed possible near future in office cystoscopy for further assessment evaluation. Discussed potential for CIC in the near future if PVRs remain elevated. Recent CT results reviewed with the patient today; as noted above. Follow-up in 1-3 months with imaging and labs to be completed prior; or sooner with any issues, concerns, and or questions. Orders: Orders AMB Urinalysis Automated Today Z13.9 - Encounter for screening, unspecified Prostate Specific Antigen Today R33.9 - Retention of urine, unspecified Blood Urea Nitrogen Today R39.15 - Urgency of urination Creatinine Today R39.15 - Urgency of urination AMB Post Void Residual by ultrasound Today N40.0 - Benign prostatic hyperplasia without lower urinary tract symptoms US retroperitoneal comp Today R33.9 - Retention of urine, unspecified Medications: New bethanechol chloride 50 mg PO BID 30 days 60 tabs 1RF N39.0 - Urinary tract infection, site not specified Discontinued tamsulosin (Flomax) Discontinued Reason: Doctor's Order 0.4 mg PO BEDTIME 30 caps 2RF N40.0 - Benign prostatic hyperplasia without lower urinary tract symptoms Patient Instructions: The patient had an opportunity to ask questions regarding the treatment plan. All questions were answered. Physical exam, labs, and imaging were discussed and reviewed in detail. As well as risks, benefits, and discussion of treatment choices. No major barriers to understanding were identified. The patient expressed understanding and agreement with the above treatment plan. The patient was made aware they should contact our office by phone for worsening of their current condition, the appearance of new symptoms, or with any questions or concerns. Compliance is encouraged with any medications and follow up testing that is ordered. It is a privilege to be allowed the opportunity to participate in? your urological care.? Again, if you have any questions or concerns If you have any questions or concerns please do not hesitate to contact me. The office is [phone]. This note is constructed using voice recognition software. While every effort has been made to ensure accuracy watch engine operator errors may have been included. Yours sincerely, NICOLE Andrews Coding Level of Care Code Est Pt Level 4 (56260) Diagnoses Incomplete bladder emptying R33.9 Enlarged prostate N40.0 Lower urinary tract symptoms R39.9 Urinary urgency R39.15 Incontinence R32 Nocturia R35.1 CPT Codes Post Residual Void - PVR CPT Code: 82013-Ygng Void Residual by ultrasound ([id number])
== END 2023-10-28 15:55 | disposition home or self-care (01) ==
PROVIDERS: PCP Internal Medicine; Visit Provider Nurse Practitioner Family
DX: R33.9 Retention of urine, unspecified (principal); N40.0 Benign prostatic hyperplasia without lower urinary tract symptoms; R39.9 Unspecified symptoms and signs involving the genitourinary system; R39.15 Urgency of urination; R32 Unspecified urinary incontinence; R35.1 Nocturia; Z13.9 Encounter for screening, unspecified
CPT/HCPCS: 99214

== ENCOUNTER → 2023-10-28 14:44 | Outpatient (BNVA) | payer OTHER, SELFPAY | PROVIDERS: PCP Internal Medicine; Visit Provider Nurse Practitioner Family | DX: R33.9 Retention of urine, unspecified (principal); N40.0 Benign prostatic hyperplasia without lower urinary tract symptoms; R39.15 Urgency of urination; R32 Unspecified urinary incontinence; R35.1 Nocturia | CPT/HCPCS: 51798; 81003; 99212 ==

== ENCOUNTER 2023-12-01 10:28 | Outpatient (AMB) | payer OTHER, SELFPAY ==
--- NOTE | 2023-12-01 10:29 | MHC.OFFVIS ---
Vital Signs 12/01/23 10:30 Height 5 ft 4 in Weight 179 lb 3.773 oz BMI 30.8 BP 118/80 Blood Pressure Location Lt brachial Position Sitting Pulse 78 Pulse Source Pulse Oximeter Intake Visit Reasons: DM Intake Note: Patient present today to follow up on Type 2 Diabetes Mellitus. Last Diabetic Eye exam: 11/2022 Last Podiatry Visit: 11/2023 Random Glucose: 176 mg/dl HgA1C: 9.5% 09/23/2023 Aging Room Hand Required: No Accompanied by: Daughter Allergies aspirin [ASPIRIN] Allergy (Intermediate, Verified 12/01/23 10:34) RASH WITH HIGH DOSES Penicillins Allergy (Mild, Verified 12/01/23 10:34) HIVES phenytoin [From Dilantin] Allergy (Mild, Verified 12/01/23 10:34) BURNING SENSATION IN BODY butalbital [BUTALBITAL] Allergy (Unknown, Verified 12/01/23 10:34) HIVES thimerosal [THIMEROSAL] Allergy (Unknown, Verified 12/01/23 10:34) UNKNOWN doxycycline Adverse Reaction (Intermediate, Verified 12/01/23 10:34) penile rash? [place] Allergy (Unknown, Uncoded 12/01/23 10:34) Unknown MOTRIN Allergy (Unknown, Uncoded 12/01/23 10:34) hives Medication List - Last Reconciled 12/01/23 by Bonifacio Ocasio MD acetaminophen (Tylenol) 650 mg (2 x 325 mg) PO Q6H PRN albuterol sulfate 90 mcg/actuation (Ventolin HFA) 2 puffs PO Q4-6H PRN amitriptyline 25 mg PO BEDTIME aspirin 81 mg PO DAILY atorvastatin 40 mg PO BEDTIME bethanechol chloride 50 mg PO BID 30 days blood sugar diagnostic (OneTouch Ultra Test strips) test 3 times per day blood-glucose meter (OneTouch Ultra2 Meter) test 3 times per day cholecalciferol (vitamin D3) 2,000 units PO DAILY dulaglutide (Trulicity) 1.5 mg (0.5 mL) subcut QWEEK fluticasone furoate-vilanterol 200-25 mcg/dose (Breo Ellipta) 1 inh inhalation DAILY gabapentin 300 mg PO BID insulin glargine (Lantus Solostar U-100 Insulin) 10 units (0.1 mL) subcut DAILY 30 days lancets (OneTouch UltraSoft 2 Lancet) As directed levetiracetam (Keppra) 500 mg PO Q12H lidocaine 5% 1 patch topical DAILY lisinopril 2.5 mg PO DAILY 90 days meclizine 25 mg PO TID PRN metformin 1,000 mg PO BID 90 days montelukast (Singulair) 10 mg PO BEDTIME 90 days morphine 15 mg PO Q8H PRN nebulizer accessories As directed nebulizers (Compact Compressor Nebulizer) As directed omeprazole 20 mg PO DAILY 90 days pen needle, diabetic (BD Ultra-Fine Mini Pen Needle) As directed Inject LAntus 10 u QD sertraline 100 mg PO DAILY 90 days tramadol 50 mg PO BID PRN 30 days triamcinolone acetonide 0.5% 1 appl topical BID HPI Comments Details: Patient is a 73-year-old male with DM type 2 diagnosed in his 40s or 50s, who presents for tele health visit for the continued management of diabetes. Patient was last seen on 01/16/21 by Becca Bolden NP i. Past medical history:DM2, COPD, epilipesy, cataracts Micro and macrovascular complications: +PVD. Diabetes medications: Lantus 10 units, Trulicity 1.5 mg/dl not taking Metformin 1000 mg twice a day, Symptoms reported: at night cramping in lower extremities Hypoglycemia: No . Hyperglycemia: denies urinary frequency, +polydypsia Blood glucose monitoring: Unfortunately, patient did not bring log book, glucometer or sensor to the follow-up appointment Diet: 1-3 meals/day. Drinks throughout day: water and diet soda. Exercise: limited Seeing optho today All of family has Type 2 DM Laboratory Tests 11/06/20 11/06/20 11/06/20 08:31 08:31 08:31 Creatinine 1.22 Estimated GFR 59 Hemoglobin A1c % 11.6 Triglycerides 73 Cholesterol 122 LDL Cholesterol, Calc 60 HDL Cholesterol 48 TSH 1.74 Microalb/Creat Ratio [facility] Medical History Frequency of micturition Testicular pain Skin cyst Stroke Lipoma of abdominal wall History of carpal tunnel syndrome BECCA positive Inguinal hernia, bilateral BPH (benign prostatic hyperplasia) Brain tumor Hypercholesterolemia Obstructive sleep apnea Vitamin D deficiency Obesity (BMI 30-39.9) Vitamin B12 deficiency GERD (gastroesophageal reflux disease) Grand mal seizure disorder Erectile dysfunction Osteoarthritis COPD (chronic obstructive pulmonary disease) Tennis elbow Calcaneal spur, right RLS (restless legs syndrome) Pulmonary nodule Insomnia Essential hypertension Diabetes mellitus with hyperglycemia Migraine Surgical History Hx of carpal tunnel repair History of diverticulosis Hx of colonoscopy History of elbow surgery Hx of foot surgery Hx of brain surgery History of partial gastrectomy History of right inguinal hernia repair Hx of prostate biopsy Family History Father Diabetes Throat cancer Heart disease Mother Ovarian cancer Social History Household Members: Spouse Housing: Apartment Are you a primary health care marketing manager to a significant other at home: No Do you presently have visiting nurse or other home services: Yes (VNA) Alcohol intake: never Patient Tobacco Use Status: Never used Tobacco e-Cigarette/Vaping Use: Never Used Second Hand Smoke Exposure: No Advance Directives Date on File: 06/13/21 service: No Current occupational status: retired Cognitive needs: No Hearing needs: No Vision needs: No Physical Exam Absence of Cushingoid features. Absence of acromegalic features. Neck exam reveals nl size thyroid about 15 gms. No thyroid nodules palpable. No carotid bruits present. Lungs CTA. Heart S1 S2, Reg R/R. No M/R/ G. Skin exam reveals absence of vitiligo or acanthosis nigricans. Abdominal exam reveals Soft NT/ND with NA BS. No organomegaly present. Neck Other: . Extrem Other: Visual exam of foot performed. No ulcerations or open lesions. No onchomycosis, no callouses.Pulses 2 + distally Sensation intact to monofilament exam. 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 Plan is to initiate a Scott 3. Can not adjust regimen based on lack of data. Were advised patient to go for lipid profile microalbumin to creatinine ratio number ordered by patient's primary care provider. Will send patient unit educator and residential gas heat technician. Went over relationship poor glycemic control to development and progression of complications Orders: Referrals Diabetes Education Referral E11.65 - Type 2 diabetes mellitus with hyperglycemia, Z79.4 - care home (current) use of insulin Nutrition/Dietitian Referral E11.65 - Type 2 diabetes mellitus with hyperglycemia, Z79.4 - meterman (current) use of insulin Medications: New blood-glucose sensor (FreeStyle Scott 3 Sensor device) As directed change every 14 days 2 ea 5RF blood-glucose meter,continuous (FreeStyle Scott 3 Anita) As directed 1 ea 0RF Refilled dulaglutide (Trulicity) 1.5 mg (0.5 mL) subcut QWEEK 2 mL 0RF
[2023-12-01 10:30] VITALS: BP 118/80; PULSE 78; BMI 30.8
[2023-12-01 10:40] LABS: Glucose, Whole Blood 176 mg/dL (60-115)
== END 2023-12-01 10:54 | disposition home or self-care (01) ==
PROVIDERS: PCP Internal Medicine; Visit Provider Internal Medicine Endocrinology, Diabetes & Metabolism
DX: E11.65 Type 2 diabetes mellitus with hyperglycemia (principal); Z79.4 Long term (current) use of insulin
CPT/HCPCS: 99214

== ENCOUNTER 2023-12-01 10:28 | Outpatient (REF) | payer OTHER, SELFPAY ==
[2023-12-01 13:11] LABS: Blood Urea Nitrogen 11 mg/dL (9-16); Cholesterol 145 mg/dL (<200); Estimated Glomerular Filt Rate > 60; HDL Cholesterol 55 mg/dL (>40); LDL Cholesterol Calculated 76 mg/dL (<100); Triglycerides 70 mg/dL (<150)
[2023-12-01 13:33] LABS: Prostate Specific Antigen 1.06 ng/mL (<0.05-4.0)
[2023-12-01 14:38] LABS: Creatinine Urine 32.34 mg/dL; Microalbumin Urine < 5.0 mg/L
== END 2023-12-01 10:29 | disposition home or self-care (01) ==
LOC: HO.LAB 10:28
PROVIDERS: Nurse Practitioner Family; PCP Internal Medicine; Visit Provider Internal Medicine Endocrinology, Diabetes & Metabolism
DX: Z12.5 Encounter for screening for malignant neoplasm of prostate (principal); E11.65 Type 2 diabetes mellitus with hyperglycemia; R33.9 Retention of urine, unspecified; R39.15 Urgency of urination; Z79.4 Long term (current) use of insulin
CPT/HCPCS: 36415; 80061; 82043; 82565; 82570; 82947; 84153; 84520; 99212

== ENCOUNTER 2023-12-16 09:21 | Outpatient (AMB) | payer OTHER, SELFPAY ==
--- NOTE | 2023-12-16 09:29 | A.OFFVIS_ITS ---
VS Expanded 12/16/23 09:30 12/16/23 09:58 Height 5 ft 4 in 5 ft 4 in Weight 183 lb 10.321 oz 184 lb BMI 31.5 31.6 Intake Visit Reasons: T2DM/CONFIRMED Allergies aspirin [ASPIRIN] Allergy (Intermediate, Verified 12/01/23 10:34) RASH WITH HIGH DOSES Penicillins Allergy (Mild, Verified 12/01/23 10:34) HIVES phenytoin [From Dilantin] Allergy (Mild, Verified 12/01/23 10:34) BURNING SENSATION IN BODY butalbital [BUTALBITAL] Allergy (Unknown, Verified 12/01/23 10:34) HIVES thimerosal [THIMEROSAL] Allergy (Unknown, Verified 12/01/23 10:34) UNKNOWN doxycycline Adverse Reaction (Intermediate, Verified 12/01/23 10:34) penile rash? [place] Allergy (Unknown, Uncoded 12/01/23 10:34) Unknown MOTRIN Allergy (Unknown, Uncoded 12/01/23 10:34) hives Nutrition Presentation Details: Pt presents for MNT for T2DM . Pt was referred by Dr. Ocasio, hide paster. Pt presents with during this appointment. 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 at the pharmacy - Pt was advised to obtain at the pharmacy Pt reports eating a variety of foods , having lack of understanding related to food and dm BS Monitoring Most Recent Diabetes Results: Microalb/Creat Ratio TNP 12/01/23 Cholesterol 145 mg/dL (<200) 12/01/23 HDL Cholesterol 55 mg/dL (>40) 12/01/23 Triglycerides 70 mg/dL (<150) 12/01/23 Creatinine 1.13 mg/dL (0.5-1.4) 12/01/23 Blood Urea Nitrogen 11 mg/dL (9-16) 12/01/23 Sodium 135 mmol/L (135-145) 08/31/23 Potassium 4.4 mmol/L (3.3-5.1) 08/31/23 Chloride 98 mmol/L (96-108) 08/31/23 Carbon Dioxide 27 mmol/L (22-29) 08/31/23 Calcium 9.3 mg/dL (8.4-10.2) 08/31/23 AST 16 U/L (5-37) 10/12/23 ALT 16 U/L (0-40) 10/12/23 Total Protein 7.1 g/dL (6.5-8.0) 10/12/23 Albumin 3.8 g/dL (3.5-5.0) 10/12/23 EUA-Zztgqmc-Am.Jeor Equation Height: 5 ft 4 in Weight: 184 lb Resting Metabolic Rate: 1505.46 Calculated Activity Level: Sedentary Calories Needed to Maintain Weight: 1806.55 Diagnosis Nutrition problem #1: food nutri know defi As related to (etiology) #1: diagnosis As evidenced by (sign/symptom) #1: knowledge deficit of diet Monitoring/Goals Nutrition problem monitoring: level of knowledge/skill and total CHO intake Learning/Education Readiness to learn: fair Stages of change: pre-contemplation Educational materials provided: Yes (healthy plate, low sugar beverages) PFSH Medical History Frequency of micturition Testicular pain Skin cyst Stroke Lipoma of abdominal wall History of carpal tunnel syndrome BERNARD positive Inguinal hernia, bilateral BPH (benign prostatic hyperplasia) Brain tumor Hypercholesterolemia Obstructive sleep apnea Vitamin D deficiency Obesity (BMI 30-39.9) Vitamin B12 deficiency GERD (gastroesophageal reflux disease) Grand mal seizure disorder Erectile dysfunction Osteoarthritis COPD (chronic obstructive pulmonary disease) Tennis elbow Calcaneal spur, right RLS (restless legs syndrome) Pulmonary nodule Insomnia Essential hypertension Diabetes mellitus with hyperglycemia Migraine Surgical History Hx of carpal tunnel repair History of diverticulosis Hx of colonoscopy History of elbow surgery Hx of foot surgery Hx of brain surgery History of partial gastrectomy History of right inguinal hernia repair Hx of prostate biopsy Family History Father Diabetes Throat cancer Heart disease Mother Ovarian cancer Social History Household Members: Spouse Housing: Apartment Are you a primary inspector health care facilities to a significant other at home: No Do you presently have visiting nurse or other home services: Yes ([facility]) Alcohol intake: never Patient Tobacco Use Status: Never used Tobacco e-Cigarette/Vaping Use: Never Used Second Hand Smoke Exposure: No Advance Directives Date on File: 06/13/21 service: No Current occupational status: retired Cognitive needs: No Hearing needs: No Vision needs: No Assessment & Plan Assessment & Plan (1) Diabetes mellitus with hyperglycemia: Code(s): E11.65 - Type 2 diabetes mellitus with hyperglycemia Category: Medical Qualifiers: Diabetes mellitus [facility] insulin use: with crusher feeder use Diabetes mellitus type: type 2 Qualified Code(s): E11.65 - Type 2 diabetes mellitus with hyperglycemia; Z79.4 - skilled nursing (current) use of insulin Plan: Wt: 84 Kg ( 12/2023 ) Est kcal needs as per MSJ: 1800 (40% carb, 30% protein/fat) Est fluid needs as per 30 ml/d: 2500 Est prot per day as per 1 g/kg bw: 84 Recommend fiber intake : 8-10 g per day and gradually increase to 25-28 g per day for women and 35-38 g for men or as tolerated Recommend sodium intake per day : less than 2000 mg Educated patient on: ( R = reviewed V = verbalizes understanding N/R = needs review N/A = not applicable * Food sources of carbohydrate, adequate serving sizes and its role in various health conditions: R * Differences between complex carbohydrates a simple carbohydrates, role of fiber in diet: N/R * Lean protein sources of foods: R * Differences between types of fats and role in diet (mono on saturated fat fatty acids, saturated fatty acids, trans fats): N/R * Food sources of sodium in salt and healthy modifications for heart health in kidney health: NR * Vitamins and minerals: R V N/R * Healthy plate method concept: R * Physical activity: Benefits a precaution: R * Hypoglycemia protocol (rule of 15): N/R * Dietary prevention of Hyperglycemia: R Patient Instructions: Drink water with meals or milk instead of juice drinks/empty calorie beverages- see list of options for beverages low in sugar Reduce on pastries/cookies/candies Follow healthy plate method at dinner Coding Level of Care Code Nutr Indiv Subseq (90363) Diagnoses Type 2 diabetes mellitus with hyperglycemia, with long-term current use of in sulin E11.65; Z79.4 Diabetes mellitus crusher feeder insulin use: with crusher feeder use Diabetes mellitus type: type 2 Time Spent (min) 40
[2023-12-16 09:30] VITALS: BMI 31.5
[2023-12-22 12:55] VITALS: BMI 31.6
== END 2023-12-16 09:59 | disposition home or self-care (01) ==
PROVIDERS: PCP Internal Medicine; Visit Provider Dietitian, Registered
DX: E11.65 Type 2 diabetes mellitus with hyperglycemia (principal); Z79.4 Long term (current) use of insulin

== ENCOUNTER → 2023-12-16 09:21 | Outpatient (BNVA) | payer OTHER, SELFPAY | PROVIDERS: PCP Internal Medicine; Visit Provider Dietitian, Registered | DX: E11.65 Type 2 diabetes mellitus with hyperglycemia (principal); Z79.4 Long term (current) use of insulin | CPT/HCPCS: 97803 ==

== ENCOUNTER 2023-12-17 14:11 | Outpatient (AMB) | payer OTHER, SELFPAY ==
--- NOTE | 2023-12-17 14:33 | MHC.AMDMED ---
Intake Intake Visit Reasons: T2DM Health Safety Coordinator Required: Yes Health Safety Coordinator Language: Historiography [facility] Information Interpreted: non-clinical & clinical Accompanied by: Daughter Allergies aspirin [ASPIRIN] Allergy (Intermediate, Verified 12/01/23 10:34) RASH WITH HIGH DOSES Penicillins Allergy (Mild, Verified 12/01/23 10:34) HIVES phenytoin [From Dilantin] Allergy (Mild, Verified 12/01/23 10:34) BURNING SENSATION IN BODY butalbital [BUTALBITAL] Allergy (Unknown, Verified 12/01/23 10:34) HIVES thimerosal [THIMEROSAL] Allergy (Unknown, Verified 12/01/23 10:34) UNKNOWN doxycycline Adverse Reaction (Intermediate, Verified 12/01/23 10:34) penile rash? [place] Allergy (Unknown, Uncoded 12/01/23 10:34) Unknown MOTRIN Allergy (Unknown, Uncoded 12/01/23 10:34) hives HPI Comprehensive Diabetes Asmnt Most Recent Diabetes Results: Hemoglobin A1c 8.5 % 12/07/19 Microalb/Creat Ratio TNP 12/01/23 Cholesterol 145 mg/dL (<200) 12/01/23 HDL Cholesterol 55 mg/dL (>40) 12/01/23 Triglycerides 70 mg/dL (<150) 12/01/23 Creatinine 1.13 mg/dL (0.5-1.4) 12/01/23 Blood Urea Nitrogen 11 mg/dL (9-16) 12/01/23 Sodium 135 mmol/L (135-145) 08/31/23 Potassium 4.4 mmol/L (3.3-5.1) 08/31/23 Chloride 98 mmol/L (96-108) 08/31/23 Carbon Dioxide 27 mmol/L (22-29) 08/31/23 Calcium 9.3 mg/dL (8.4-10.2) 08/31/23 AST 16 U/L (5-37) 10/12/23 ALT 16 U/L (0-40) 10/12/23 Total Protein 7.1 g/dL (6.5-8.0) 10/12/23 Albumin 3.8 g/dL (3.5-5.0) 10/12/23 [facility] Medical History Frequency of micturition Testicular pain Skin cyst Stroke Lipoma of abdominal wall History of carpal tunnel syndrome BERNARD positive Inguinal hernia, bilateral BPH (benign prostatic hyperplasia) Brain tumor Hypercholesterolemia Obstructive sleep apnea Vitamin D deficiency Obesity (BMI 30-39.9) Vitamin B12 deficiency GERD (gastroesophageal reflux disease) Grand mal seizure disorder Erectile dysfunction Osteoarthritis COPD (chronic obstructive pulmonary disease) Tennis elbow Calcaneal spur, right RLS (restless legs syndrome) Pulmonary nodule Insomnia Essential hypertension Diabetes mellitus with hyperglycemia Migraine Surgical History Hx of carpal tunnel repair History of diverticulosis Hx of colonoscopy History of elbow surgery Hx of foot surgery Hx of brain surgery History of partial gastrectomy History of right inguinal hernia repair Hx of prostate biopsy Family History Father Diabetes Throat cancer Heart disease Mother Ovarian cancer Social History Household Members: Spouse Housing: Apartment Are you a primary acute care registered nurse to a significant other at home: No Do you presently have visiting nurse or other home services: Yes ([facility]) Alcohol intake: never Patient Tobacco Use Status: Never used Tobacco e-Cigarette/Vaping Use: Never Used Second Hand Smoke Exposure: No Advance Directives Date on File: 06/13/21 service: No Current occupational status: retired Cognitive needs: No Hearing needs: No Vision needs: No Assessment & Plan Assessment & Plan (1) Diabetes mellitus with hyperglycemia: Code(s): E11.65 - Type 2 diabetes mellitus with hyperglycemia Qualifiers: Diabetes mellitus type: type 2 Diabetes mellitus terminal make up operator insulin use: with halfway use Qualified Code(s): E11.65 - Type 2 diabetes mellitus with hyperglycemia; Z79.4 - half-way (current) use of insulin Plan: Patient at visit to set up an insert Scott 3 sensor with retail planning manager Instructed patient sensors water proof you can shower, or swim do not submerge sensor in water for over 30 minutes Is sensor falls off cannot put back in you need to replace sensor, customer service number given to patient for sensor replacement Sensor placed on the back of L arm Patient left visit with sensor in warmup Reviewed how to interpret trend arrows Reminded patient that to check finger sticks if symptoms do not match sensor reading. Discussed lag time between finger stick and sensor data.? Instructed patient she should always keep blood glucometer for backup testing if needed Reviewed delay of CGM from fingersticks Reminded pt that if symptoms do not match sensor still needs to check fingersticks. Patient Instructions: Instrucciones para el paciente: CGM proporciona informaci?n sobre el control de la glucosa en dawit a lo harris del d?a, incluidas la hiperglucemia y la hipoglucemia. Contin?e controlando la glucosa en dawit seg?n las instrucciones. Siga las pautas de nutrici?n proporcionadas. Informe cualquier molestia de inmediato al proveedor de atenci?n m?dica. Mantente christiano hidratado. Puede ba?arse, ducharse, nadar y hacer ejercicio mientras usa el sensor de glucosa. No sumerja el sensor de glucosa en agua abi m?s de 30 minutos. Retire el sensor para gaye resonancia magn?art o gaye tomograf?a computarizada. Evite la m?quina de shital X en los aeropuertos: retire el sensor o solicite la varita Coding Level of Care Code Est Pt Level 1 (24731) Diagnoses Type 2 diabetes mellitus with hyperglycemia, with long-term current use of insulin E11.65; Z79.4 Diabetes mellitus type: type 2 Diabetes mellitus terminal make up operator insulin use: with halfway use
== END 2023-12-17 14:35 | disposition home or self-care (01) ==
PROVIDERS: PCP Internal Medicine; Visit Provider Registered Nurse Diabetes Educator
DX: E11.65 Type 2 diabetes mellitus with hyperglycemia (principal); Z79.4 Long term (current) use of insulin

== ENCOUNTER → 2023-12-17 14:11 | Outpatient (BNVA) | payer OTHER, SELFPAY | PROVIDERS: PCP Internal Medicine; Visit Provider Registered Nurse Diabetes Educator | DX: E11.65 Type 2 diabetes mellitus with hyperglycemia (principal); Z79.4 Long term (current) use of insulin | CPT/HCPCS: 99211 ==

== ENCOUNTER 2023-12-29 10:20 | Outpatient (REF) | payer OTHER, SELFPAY ==
--- NOTE | ~2023-12-29 | US_ITS ---
EXAMINATION: US RETROPERITONEAL COMPLETE (RENAL) CLINICAL INFORMATION: Retention of urine, unspecified. COMPARISON: CT abdomen and pelvis 08/31/2023. Ultrasound bladder 07/28/2023. Ultrasound abdomen complete 06/12/2023. TECHNIQUE: Real-time imaging of the kidneys and bladder. FINDINGS: RIGHT KIDNEY: 9.6 x 5.7 x 5.0 cm (SAG x AP x TRV). The kidney is normal in size, contour, and echogenicity. Renal cortical thickness is normal. No calculi or focal parenchymal lesions. No hydronephrosis. LEFT KIDNEY: 9.7 x 5.6 x 4.0 cm (SAG x AP x TRV). The kidney is normal in size, contour, and echogenicity. Renal cortical thickness is normal. No calculi or focal parenchymal lesions. No hydronephrosis. BLADDER: Well distended and normal. Bilateral ureteral jets are demonstrated. Prevoid bladder volume is 316 mL. Postvoid bladder volume is 60.4 mL. There is mild thickening of the bladder wall. ADDITIONAL FINDINGS: The prostate is mildly enlarged with a volume of 27.5 mL. US/US retroperitoneal comp IMPRESSION: 1. Normal appearance of the kidneys. 2. Moderate post void residual. 3. Mild thickening of the bladder wall. 4. Mild enlargement of the prostate.
== END 2023-12-29 10:21 | disposition home or self-care (01) ==
LOC: HO.US 10:20
PROVIDERS: PCP Internal Medicine; Visit Provider Nurse Practitioner Family
DX: R33.9 Retention of urine, unspecified (principal)
CPT/HCPCS: 76770

== ENCOUNTER 2023-12-30 12:55 | Outpatient (AMB) | payer OTHER, SELFPAY ==
[2023-12-30 13:01] VITALS: BP 142/70; PULSE 92; O2SAT 96; BMI 31.4
--- NOTE | 2023-12-30 13:01 | MHC.PC.OV ---
Vital Signs 12/30/23 13:01 12/30/23 13:30 Height 5 ft 4 in Weight 183 lb BMI 31.4 BP 142/70 H 126/70 Blood Pressure Location Lt brachial Lt brachial Position Sitting Sitting Pulse 92 Pulse Source Pulse Oximeter Pulse Oximetry (%) 96 Oxygen Delivery Method Room Air Intake Visit Reasons: DM, depreession , H xf CVA Allergies aspirin [ASPIRIN] Allergy (Intermediate, Verified 12/30/23 13:02) RASH WITH HIGH DOSES Penicillins Allergy (Mild, Verified 12/30/23 13:02) HIVES phenytoin [From Dilantin] Allergy (Mild, Verified 12/30/23 13:02) BURNING SENSATION IN BODY butalbital [BUTALBITAL] Allergy (Unknown, Verified 12/30/23 13:02) HIVES thimerosal [THIMEROSAL] Allergy (Unknown, Verified 12/30/23 13:02) UNKNOWN doxycycline Adverse Reaction (Intermediate, Verified 12/30/23 13:02) penile rash? [place] Allergy (Unknown, Uncoded 12/30/23 13:02) Unknown MOTRIN Allergy (Unknown, Uncoded 12/30/23 13:02) hives Medication List - Last Reconciled 12/30/23 by Den Leal MD acetaminophen (Tylenol) 650 mg (2 x 325 mg) PO Q6H PRN albuterol sulfate 90 mcg/actuation (Ventolin HFA) 2 puffs PO Q4-6H PRN amitriptyline 25 mg PO BEDTIME aspirin 81 mg PO DAILY atorvastatin 40 mg PO BEDTIME bethanechol chloride 50 mg PO BID 30 days blood sugar diagnostic (OneTouch Ultra Test strips) test 3 times per day blood-glucose meter (OneTouch Ultra2 Meter) test 3 times per day blood-glucose meter,continuous (FreeStyle Scott 3 [place]) As directed blood-glucose sensor (FreeStyle Scott 3 Sensor device) As directed change every 14 days cholecalciferol (vitamin D3) 2,000 units PO DAILY dulaglutide (Trulicity) 1.5 mg (0.5 mL) subcut QWEEK 90 days fluticasone furoate-vilanterol 200-25 mcg/dose (Breo Ellipta) 1 inh inhalation DAILY gabapentin 300 mg PO BID insulin glargine (Lantus Solostar U-100 Insulin) 10 units (0.1 mL) subcut DAILY 30 days lancets (OneTouch UltraSoft 2 Lancet) As directed levetiracetam (Keppra) 500 mg PO Q12H lidocaine 5% 1 patch topical DAILY lisinopril 2.5 mg PO DAILY 90 days meclizine 25 mg PO TID PRN metformin 1,000 mg PO BID 90 days montelukast (Singulair) 10 mg PO BEDTIME 90 days morphine 15 mg PO Q8H PRN nebulizer accessories As directed nebulizers (Compact Compressor Nebulizer) As directed omeprazole 20 mg PO DAILY 90 days pen needle, diabetic (BD Ultra-Fine Mini Pen Needle) As directed Inject LAntus 10 u QD polyethylene glycol 3350 (Miralax) 17 grams PO DAILY sertraline 100 mg PO DAILY 90 days tramadol 50 mg PO BID PRN 30 days triamcinolone acetonide 0.5% 1 appl topical BID Tobacco use date assessed: 09/23/23 Fall risk assessment: No Falls in past year Last assessed Fall Risk: 12/30/23 Dental Screening Dental Screen Date: 09/23/23 HPI DM, depreession , H xf CVA HPI Details 73-year-old obese male with depression, asthma BPH GERD hypertension last seen in September 2023. Patient comes in for follow-up patient had retention of urine and an ultrasound requested test has been done but results are not there yet. Patient follows up with endocrinology for the diabetes last hemoglobin A1c was 8.5. Patient also has followed up with Urology and shows urinary retention. Second attempt of urinating still has 185 cc left patient was started on bethanechol and stopped on Flomax. [facility] Medical History Frequency of micturition Testicular pain Skin cyst Stroke Lipoma of abdominal wall History of carpal tunnel syndrome BERNARD positive Inguinal hernia, bilateral BPH (benign prostatic hyperplasia) Brain tumor Hypercholesterolemia Obstructive sleep apnea Vitamin D deficiency Obesity (BMI 30-39.9) Vitamin B12 deficiency GERD (gastroesophageal reflux disease) Grand mal seizure disorder Erectile dysfunction Osteoarthritis COPD (chronic obstructive pulmonary disease) Tennis elbow Calcaneal spur, right RLS (restless legs syndrome) Pulmonary nodule Insomnia Essential hypertension Diabetes mellitus with hyperglycemia Migraine Surgical History Hx of carpal tunnel repair History of diverticulosis Hx of colonoscopy History of elbow surgery Hx of foot surgery Hx of brain surgery History of partial gastrectomy History of right inguinal hernia repair Hx of prostate biopsy Family History Father Diabetes Throat cancer Heart disease Mother Ovarian cancer Social History Household Members: Spouse Housing: Apartment Are you a primary rn patient care to a significant other at home: No Do you presently have visiting nurse or other home services: Yes ([facility]NA) Alcohol intake: never Patient Tobacco Use Status: Never used Tobacco e-Cigarette/Vaping Use: Never Used Second Hand Smoke Exposure: No Advance Directives Date on File: 06/13/21 service: No Current occupational status: retired Cognitive needs: No Hearing needs: No Vision needs: No Questionnaire PHQ-9 Over the last 2 weeks, how often have you been bothered by any of the following problems? 1. Little interest or pleasure in doing things: nearly every day 2. Feeling down, depressed, or hopeless: nearly every day 3. Trouble falling or staying asleep, or sleeping too much: nearly every day 4. Feeling tired or having little energy: nearly every day 5. Poor appetite or overeating: not at all 6. Feeling bad about yourself - or that you are a failure or have let yourself or your family down: not at all 7. Trouble concentrating on things, such as reading the newspaper or watching television: not at all 8. Moving or speaking so slowly that other people could have noticed. Or the opposite - being so fidgety or restless that you have been moving around a lot more than usual: not at all 9. Thoughts that you would be better off or of hurting yourself in some way: not at all Total score: 12 Depression Screening Interpretation: Positive Depression Screening Done: Yes Source: Developed by Drs. Bonifacio Disla, Cristine Card, Orville Morley and colleagues, with an educational jackson from [employer]. Thrive Questionnaire Date Thrive assessed: 09/23/23 AUDIT C Alcohol Use Questionnaire (AUDIT-C) 1. How often do you have a drink containing alcohol?: Monthly or less 2. How many drinks containing alcohol do you have on a typical day when you are drinking?: 1 or 2 3. How often do you have six or more drinks on one occasion?: Never Total Score: 1 LANA-7 AMB Questionnaire LANA-7 Date LANA - 7 assessed: 09/23/23 Source: Developed by Drs. Bonifacio Disla, Cristine Card, Orville Morley and colleagues, with an educational jackson from [employer]. Physical exam (Primary Care) Vital Signs: Last Vital Signs Pulse 92 12/30/23 13:01 BP 142/70 H 12/30/23 13:01 Pulse Ox 96 12/30/23 13:01 Oxygen Delivery Method Room Air 12/30/23 13:01 BMI result Body Mass Index 31.4 Tobacco/Smoking Status: Tobacco use Status Tobacco use date assessed 09/23/23 12/30/23 13:03 Patient Tobacco Use Status Never used Tobacco 12/30/23 13:03 e-Cigarette/Vaping Use Never Used 12/30/23 13:03 PHQ-9: PHQ-9 Score PHQ-9: Total score 12 12/30/23 13:14 Depression Screening Interpretation: Positive Thrive Assessment: Date of Thrive Assessment Date Thrive assessed 09/23/23 12/30/23 13:03 Const General: alert; No acute distress Eyes Conjunctivae: conjunctivae normal Resp Auscultation: clear to auscultation bilaterally Cardio Rate: regular rate Rhythm: regular rhythm GI Inspection: Yes normal to inspection Extrem General: Yes normal to inspection and No edema Results AMB Hemoglobin A1c AMB Hemoglobin A1c 9.1 % Last Edit by L[place] CMA on 12/30/23 13:15 Results Reviewed Results Reviewed: Laboratory Last Values Hgb A1c (Clinic) 9.1 % (4.0-6.0) H 12/30/23 13:01 Assessment and Plan Assessment & Plan (1) Diabetes mellitus with hyperglycemia: Code(s): E11.65 - Type 2 diabetes mellitus with hyperglycemia Qualifiers: Diabetes mellitus type: type 2 Diabetes mellitus detention insulin use: with supervisor intermediates use Qualified Code(s): E11.65 - Type 2 diabetes mellitus with hyperglycemia; Z79.4 - buttermaker continuous churn (current) use of insulin Plan: Decrease the amount of carbohydrate intake, pasta, bread, rice and potatoes are all sugar and that is aside from all the sweet stuff, remember that fruits are good but they are Sweet also. Hemoglobin A1c goal of less than 7.0 patient on Trulicity 1.5 once a week Lantus 10 units once a day metformin a 1000 mg twice a day. PAtient sees ENDO concern AIC 9.1 (2) Essential hypertension: Code(s): I10 - Essential (primary) hypertension Plan: Continue with blood pressure medication. Decrease salt intake and exercise patient on lisinopril 2.5 mg once a day (3) GERD (gastroesophageal reflux disease): Code(s): K21.9 - Gastro-esophageal reflux disease without esophagitis Plan: Avoid the foods that causes that usually spicy foods, tomato products, juices, coffee, soda and foods that your sensitive to. After eating do not lie down, allow 3-4 hours before in lie down. And keep the head of bed above 30 degrees to avoid the acid from going up. (4) Obesity (BMI 30-39.9): Code(s): E66.9 - Obesity, unspecified Plan: Diet and exercise (5) Hypercholesterolemia: Code(s): E78.00 - Pure hypercholesterolemia, unspecified Plan: Avoid fried foods, chicken skin, eggs, butter margarine, pastries and meat. Be it pork or beef they have a lot of cholesterol atorvastatin 40 mg once a (6) Recurrent major depression: Comment: suicidal ideation 05/2012 Code(s): F33.9 - Major depressive disorder, recurrent, unspecified Plan: Continue with counseling and therapy. therapist was told want to see in person and is awaiting schedule (7) Asthma: Code(s): J45.909 - Unspecified asthma, uncomplicated Plan: Patient on albuterol inhaler and Breo (8) BPH (benign prostatic hyperplasia): Comment: 07/2023 US 28 cc prostate Code(s): N40.0 - Benign prostatic hyperplasia without lower urinary tract symptoms Plan: Patient being followed up by Urology placed on bethanechol (9) Incomplete bladder emptying: Code(s): R33.9 - Retention of urine, unspecified Plan: Continue to follow-up with urology (10) Constipation: Code(s): K59.00 - Constipation, unspecified Orders: Orders AMB Hemoglobin A1c Today Z13.9 - Encounter for screening, unspecified Medications: New polyethylene glycol 3350 (Miralax) 17 grams PO DAILY 100 ea 3RF K59.00 - Constipation, unspecified Refilled omeprazole 20 mg PO DAILY 90 days 90 caps 1RF K21.9 - Gastro-esophageal reflux disease without esophagitis Coding Level of Care Code Est Pt Level 4 (31388) Diagnoses Type 2 diabetes mellitus with hyperglycemia, with long-term current use of insulin E11.65; Z79.4 Diabetes mellitus type: type 2 Diabetes mellitus supervisor intermediates insulin use: with detention use Essential hypertension I10 GERD (gastroesophageal reflux disease) K21.9 Obesity (BMI 30-39.9) E66.9 Hypercholesterolemia E78.00 Recurrent major depression F33.9 Asthma J45.909 BPH (benign prostatic hyperplasia) N40.0 Incomplete bladder emptying R33.9 Constipation K59.00
[2023-12-30 13:30] VITALS: BP 126/70
== END 2023-12-30 13:42 | disposition home or self-care (01) ==
PROVIDERS: PCP Internal Medicine; Visit Provider Internal Medicine
DX: E11.65 Type 2 diabetes mellitus with hyperglycemia (principal); Z79.4 Long term (current) use of insulin; F33.9 Major depressive disorder, recurrent, unspecified; I10 Essential (primary) hypertension; K21.9 Gastro-esophageal reflux disease without esophagitis; E66.9 Obesity, unspecified; E78.00 Pure hypercholesterolemia, unspecified; J45.909 Unspecified asthma, uncomplicated; N40.0 Benign prostatic hyperplasia without lower urinary tract symptoms; R33.9 Retention of urine, unspecified; K59.00 Constipation, unspecified
CPT/HCPCS: 83036; 99214

== ENCOUNTER 2023-12-31 14:07 | Outpatient (AMB) | payer OTHER, SELFPAY ==
--- NOTE | 2023-12-31 14:42 | A.OFFVIS_ITS ---
Intake Intake Visit Reasons: T2DM Client Services Analyst Required: Yes Client Services Analyst Language: Sample Case Porter Name: Raffaele [id number] Information Interpreted: non-clinical & clinical Accompanied by: Daughter Allergies aspirin [ASPIRIN] Allergy (Intermediate, Verified 12/30/23 13:02) RASH WITH HIGH DOSES Penicillins Allergy (Mild, Verified 12/30/23 13:02) HIVES phenytoin [From Dilantin] Allergy (Mild, Verified 12/30/23 13:02) BURNING SENSATION IN BODY butalbital [BUTALBITAL] Allergy (Unknown, Verified 12/30/23 13:02) HIVES thimerosal [THIMEROSAL] Allergy (Unknown, Verified 12/30/23 13:02) UNKNOWN doxycycline Adverse Reaction (Intermediate, Verified 12/30/23 13:02) penile rash? [place] Allergy (Unknown, Uncoded 12/30/23 13:02) Unknown MOTRIN Allergy (Unknown, Uncoded 12/30/23 13:02) hives HPI Comprehensive Diabetes Asmnt Most Recent Diabetes Results: Hemoglobin A1c 8.5 % 12/07/19 Microalb/Creat Ratio TNP 12/01/23 Cholesterol 145 mg/dL (<200) 12/01/23 HDL Cholesterol 55 mg/dL (>40) 12/01/23 Triglycerides 70 mg/dL (<150) 12/01/23 Creatinine 1.13 mg/dL (0.5-1.4) 12/01/23 Blood Urea Nitrogen 11 mg/dL (9-16) 12/01/23 Sodium 135 mmol/L (135-145) 08/31/23 Potassium 4.4 mmol/L (3.3-5.1) 08/31/23 Chloride 98 mmol/L (96-108) 08/31/23 Carbon Dioxide 27 mmol/L (22-29) 08/31/23 Calcium 9.3 mg/dL (8.4-10.2) 08/31/23 AST 16 U/L (5-37) 10/12/23 ALT 16 U/L (0-40) 10/12/23 Total Protein 7.1 g/dL (6.5-8.0) 10/12/23 Albumin 3.8 g/dL (3.5-5.0) 10/12/23 COUNTS INCLUDE 234 BEDS AT THE [facility] Medical History Frequency of micturition Testicular pain Skin cyst Stroke Lipoma of abdominal wall History of carpal tunnel syndrome BERNARD positive Inguinal hernia, bilateral BPH (benign prostatic hyperplasia) Brain tumor Hypercholesterolemia Obstructive sleep apnea Vitamin D deficiency Obesity (BMI 30-39.9) Vitamin B12 deficiency GERD (gastroesophageal reflux disease) Grand mal seizure disorder Erectile dysfunction Osteoarthritis COPD (chronic obstructive pulmonary disease) Tennis elbow Calcaneal spur, right RLS (restless legs syndrome) Pulmonary nodule Insomnia Essential hypertension Diabetes mellitus with hyperglycemia Migraine Surgical History Hx of carpal tunnel repair History of diverticulosis Hx of colonoscopy History of elbow surgery Hx of foot surgery Hx of brain surgery History of partial gastrectomy History of right inguinal hernia repair Hx of prostate biopsy Family History Father Diabetes Throat cancer Heart disease Mother Ovarian cancer Social History Household Members: Spouse Housing: Apartment Are you a primary manager care management to a significant other at home: No Do you presently have visiting nurse or other home services: Yes ([facility]NA) Alcohol intake: never Patient Tobacco Use Status: Never used Tobacco e-Cigarette/Vaping Use: Never Used Second Hand Smoke Exposure: No Advance Directives Date on File: 06/13/21 service: No Current occupational status: retired Cognitive needs: No Hearing needs: No Vision needs: No Assessment & Plan Assessment & Plan (1) Diabetes mellitus with hyperglycemia: Code(s): E11.65 - Type 2 diabetes mellitus with hyperglycemia Qualifiers: Diabetes mellitus type: type 2 Diabetes mellitus long term care social worker insulin use: with long-term use Qualified Code(s): E11.65 - Type 2 diabetes mellitus with hyperglycemia; Z79.4 - [facility] (current) use of insulin Plan: Learning objectives: The patient was provided with verbal and written education on the following topics as outlined below. The patient met all learning objectives and was able to verbalize understanding and provide teach back of education topics discussed . The patient was provided with the opportunity to ask questions and all questions were answered. Patient Assessment Assess patient education level/literacy/barriers, patient could identify foods that he sometimes eats from [place] foods handout given today's visit Patient questions/concerns, patient at visit with his daughter. Patient denies eating or drinking anything in the morning, although he does have spike in glucose at approximately 06:00. Patient had 1 episode of hypoglycemia, reviewed with patient how to use rule of 15s to treat hypoglycemia, reviewed how to treat hypoglycemia with rule of 15s Recommended to patient he increase Lantus 12 units to Lantus 14 units Patient is also on Trulicity 1.5 mg weekly Metformin 2000 mg b.i.d. What is Diabetes? Pathophysiology How the body produces and uses insulin Identify type of DM Risk factors Brief overview of Diabetes Management Monitoring blood sugar Following a meal plan Blood glucose monitoring When/how often to test Target blood sugar ranges Patient using freestyle Scott 3 Patient's average glucose for the past 2 weeks 207 mg/dL Patient above target 71% Patient at target 29% Patient below target 0% Introduction to Nutrition Importance of healthy diet in managing DM Diet is personalized to individual preference Review patient?s regular diet/food preferences Who prepares meals/does food shopping/ Dining out?/ Barriers? How diet effects glucose Eating 3 balanced meals a day with small, healthy snacks between meals Review food groups Carbohydrates: What is a carbohydrate/Which food/food groups are considered carbohydrates Effect of carbohydrates on blood glucose Portion sizes Reading food labels Basic carb counting (if applicable per nursing assessment) Plate method Meal planning Recommendations: Follow plate method, consistent carbs and read nutritional labels. Smart Goal: Patient will keep meals to approximately 60 g of carbohydrate Educational Materials: The patient was provided with the following written educational materials: Planning Healthy Meals, [place] foods, rule of 15s Handouts given in Albanian Patient Response to instructions: Comprehension of Instructions: Fair Readiness to make changes: Contemplation How confident they feel about making changes: Poor Patient Instructions: Incluir actividad diaria regular. ADA recomienda 30 minutos de ejercicio 5 d?as a la semana. P?rdida de peso, hable con el PCP o el cardi?logo antes de comenzar un nuevo plan. Mida el nivel de az?car en la dawit seg?n las indicaciones; Ayuno y comida m?s dusty de 2hpp. Observe las tendencias en los resultados. Utilice los resultados y eval?e c?mo los alimentos, la actividad f?enma y los medicamentos afectan los resultados de az?car en la dawit. Lleve el gluc?metro o CGM a la pr?xima visita. Conocer los medicamentos para la diabetes, campbell acci?n, los efectos secundarios, la eficacia, la toxicidad, la dosis prescrita, el momento y la frecuencia de administraci?n apropiados, el efecto de las dosis olvidadas y retrasadas y las instrucciones de almacenamiento, viaje y seguridad. T?cnicas de resoluci?n de problemas para el seguimiento de episodios de hipo/hiperglucemia y tratamientos. Reducir los comportamientos de reducci?n de riesgos, dejar de fumar, ex?menes regulares de ojos, pies y dentales. Coding Level of Care Code Est Pt Level 1 (88460) Diagnoses Type 2 diabetes mellitus with hyperglycemia, with long-term current use of insulin E11.65; Z79.4 Diabetes mellitus type: type 2 Diabetes mellitus long term care social worker insulin use: with long term care social worker use
== END 2023-12-31 14:45 | disposition home or self-care (01) ==
PROVIDERS: PCP Internal Medicine; Visit Provider Registered Nurse Diabetes Educator
DX: E11.65 Type 2 diabetes mellitus with hyperglycemia (principal); Z79.4 Long term (current) use of insulin

== ENCOUNTER → 2023-12-31 14:07 | Outpatient (BNVA) | payer OTHER, SELFPAY | PROVIDERS: PCP Internal Medicine; Visit Provider Registered Nurse Diabetes Educator | DX: E11.65 Type 2 diabetes mellitus with hyperglycemia (principal); Z79.4 Long term (current) use of insulin | CPT/HCPCS: 99211 ==

== ENCOUNTER 2024-01-01 10:18 | Outpatient (AMB) | payer OTHER, SELFPAY ==
--- NOTE | 2024-01-01 10:25 | MHC.OFFVIS ---
Intake Visit Reasons: 2m/US/labs Intake Note: Patient presents for follow up visit for BPH, Incontinence, Imaging and PSA results Imaging Completed: 12/29/23 PSA: 1.06 Urology Medications: Bethanechol Blood Thinner: none PVR: 36ml's Last PVR: 728ml's; 2nd attempt: 185ml's Toppiece Cutter Required: Yes Accompanied by: Unknown Allergies aspirin [ASPIRIN] Allergy (Intermediate, Verified 01/01/24 10:36) RASH WITH HIGH DOSES Penicillins Allergy (Mild, Verified 01/01/24 10:36) HIVES phenytoin [From Dilantin] Allergy (Mild, Verified 01/01/24 10:36) BURNING SENSATION IN BODY butalbital [BUTALBITAL] Allergy (Unknown, Verified 01/01/24 10:36) HIVES thimerosal [THIMEROSAL] Allergy (Unknown, Verified 01/01/24 10:36) UNKNOWN doxycycline Adverse Reaction (Intermediate, Verified 01/01/24 10:36) penile rash? [place] Allergy (Unknown, Uncoded 01/01/24 10:36) Unknown MOTRIN Allergy (Unknown, Uncoded 01/01/24 10:36) hives Medication List - Last Reconciled 01/01/24 by REEMA Andrews-YRLAN acetaminophen (Tylenol) 650 mg (2 x 325 mg) PO Q6H PRN albuterol sulfate 90 mcg/actuation (Ventolin HFA) 2 puffs PO Q4-6H PRN amitriptyline 25 mg PO BEDTIME aspirin 81 mg PO DAILY atorvastatin 40 mg PO BEDTIME bethanechol chloride 50 mg PO BID 30 days blood sugar diagnostic (OneTouch Ultra Test strips) test 3 times per day blood-glucose meter (OneTouch Ultra2 Meter) test 3 times per day blood-glucose meter,continuous (FreeStyle Scott 3 Combined Locks) As directed blood-glucose sensor (FreeStyle Scott 3 Sensor device) As directed change every 14 days cholecalciferol (vitamin D3) 2,000 units PO DAILY dulaglutide (Trulicity) 1.5 mg (0.5 mL) subcut QWEEK 90 days fluticasone furoate-vilanterol 200-25 mcg/dose (Breo Ellipta) 1 inh inhalation DAILY gabapentin 300 mg PO BID insulin glargine (Lantus Solostar U-100 Insulin) 10 units (0.1 mL) subcut DAILY 30 days lancets (OneTouch UltraSoft 2 Lancet) As directed levetiracetam (Keppra) 500 mg PO Q12H lidocaine 5% 1 patch topical DAILY lisinopril 2.5 mg PO DAILY 90 days meclizine 25 mg PO TID PRN metformin 1,000 mg PO BID 90 days montelukast (Singulair) 10 mg PO BEDTIME 90 days morphine 15 mg PO Q8H PRN nebulizer accessories As directed nebulizers (Compact Compressor Nebulizer) As directed omeprazole 20 mg PO DAILY 90 days pen needle, diabetic (BD Ultra-Fine Mini Pen Needle) As directed Inject LAntus 10 u QD polyethylene glycol 3350 (Miralax) 17 grams PO DAILY sertraline 100 mg PO DAILY 90 days tramadol 50 mg PO BID PRN 30 days triamcinolone acetonide 0.5% 1 appl topical BID HPI Comments Details: Geovanny is a pleasant 73-year-old Taiwanese-speaking patient of Dr. Byrne was accompanied by his at today's office visit. He has a past medical history of testicular pain, stroke, lipoma of abdominal wall, carpal tunnel syndrome, BERNARD positive, inguinal hernia, brain tumor with surgical intervention in 1990, hypercholesteremia, obstructive sleep apnea, vitamin-D deficiency, GERD, seizures, erectile dysfunction, osteoarthritis, COPD, restless leg syndrome, insomnia, hypertension, diabetes, and migraines. He presents to the office today for follow-up. Recent retroperitoneal ultrasound and PSA results reviewed with the patient today. Bilateral kidneys with no calculi, lesions, and or hydronephrosis. The bladder is well distended and normal. Bladder he jets are demonstrated. Pre void bladder volume is approximately 315 mL. Postvoid bladder volume is approximately 60 mL. There is mild thickening of the bladder wall. The prostate is mildly enlarged with a volume of approximately 28 mL. PSAs 10/28 0.7, 12/01 1.1 In office urinalysis results reviewed with the patient today. PVR significantly improved at 36 mL. During last office visit patient was noted to have postvoid residual of approximately 730 mL as well as on 2nd attempt at PVR 185 mL. Discussed at length potential causes and affects of incomplete bladder emptying/urinary retention. He reports compliance with bethanechol as prescribed. He currently denies any bothersome urinary issues or concerns. Discussed affects of diabetes regarding lower urinary tract symptoms patient is experiencing. He otherwise denies hematuria, dysuria, foul smelling urine, changes to urinary stream, flank pain, fever, and or chills. He otherwise offers no other issues or concerns at this time. [facility] Medical History Frequency of micturition Testicular pain Skin cyst Stroke Lipoma of abdominal wall History of carpal tunnel syndrome BERNARD positive Inguinal hernia, bilateral BPH (benign prostatic hyperplasia) Brain tumor Hypercholesterolemia Obstructive sleep apnea Vitamin D deficiency Obesity (BMI 30-39.9) Vitamin B12 deficiency GERD (gastroesophageal reflux disease) Grand mal seizure disorder Erectile dysfunction Osteoarthritis COPD (chronic obstructive pulmonary disease) Tennis elbow Calcaneal spur, right RLS (restless legs syndrome) Pulmonary nodule Insomnia Essential hypertension Diabetes mellitus with hyperglycemia Migraine Surgical History Hx of carpal tunnel repair History of diverticulosis Hx of colonoscopy History of elbow surgery Hx of foot surgery Hx of brain surgery History of partial gastrectomy History of right inguinal hernia repair Hx of prostate biopsy Family History Father Diabetes Throat cancer Heart disease Mother Ovarian cancer Social History Household Members: Spouse Housing: Apartment Are you a primary laboratory animal caretaker to a significant other at home: No Do you presently have visiting nurse or other home services: Yes (VNA) Alcohol intake: never Patient Tobacco Use Status: Never used Tobacco e-Cigarette/Vaping Use: Never Used Second Hand Smoke Exposure: No Advance Directives Date on File: 06/13/21 service: No Current occupational status: retired Cognitive needs: No Hearing needs: No Vision needs: No Review of Systems Const Reports no additional complaints Eyes Reports no additional complaints ENT Reports no additional complaints Card Reports as per HPI Resp Reports as per HPI GI Reports as per HPI Reports as per HPI Musc Reports as per HPI Neuro Reports as per HPI Psych Reports as per HPI Endo Reports as per HPI Zeeshan/Lymph Reports no additional complaints Aller/Immun Reports no additional complaints Physical Exam Const General: cooperative, healthy appearing, comfortable, no acute distress, well developed, alert and awake Orientation/consciousness: patient oriented x3 Limitations: no limitations HEENT Head: Yes normal to inspection, Yes normocephalic and Yes atraumatic Ears: hearing grossly normal bilaterally Eyes General: appearance normal, both eyes and all related structures Neck Neck: Yes normal visual inspection and Yes trachea midline Chest Chest palpation & inspection: normal inspection of the chest Resp Effort & Inspection: normal respiratory effort and able to speak in complete sentences Cardio Rate: regular rate GI Inspection: Yes normal to inspection General: Yes no CVA tenderness Back/Spine/Pelvis Back: no CVA tenderness Skin General skin exam: no rashes or lesions noted Neuro General: patient oriented x3 Extrem General: Yes normal to inspection Psych Appearance: grossly normal and well kempt Mental Status: mental status grossly normal Speech and movement: Normal speech and movement present and Clear speech present Affect: normal affect Attitude: cooperative Thought process: Normal thought process present Thought content: Normal thought content present Insight: Fair insight present (Psych) Judgement: Fair judgement present (Psych) Office Procedures Post Void Residual Post Residual Void Post Void Residual (PVR): 36 [id number] Void Residual by ultrasound Results AMB Urinalysis, Automated UA Leukoctes 0 Solo/uL Last Edit by Porter + Sail on 01/01/24 10:43 UA Nitrite Negative Last Edit by Porter + Sail on 01/01/24 10:43 UA Urobilinogen 0.2 mg/dL Last Edit by Porter + Sail on 01/01/24 10:43 UA Protein 0 mg/dL Last Edit by Porter + Sail on 01/01/24 10:43 UA pH 6.0 Last Edit by Porter + Sail on 01/01/24 10:43 UA Blood 0 Willem/uL Last Edit by Porter + Sail on 01/01/24 10:43 UA Specific [place] 1.010 Last Edit by Porter + Sail on 01/01/24 10:43 UA Ketone Negative Last Edit by Porter + Sail on 01/01/24 10:43 UA Bilirubin 0 mg/dL Last Edit by Porter + Sail on 01/01/24 10:43 UA Glucose 0 mg/dL Last Edit by Porter + Sail on 01/01/24 10:43 Results Reviewed Results Reviewed: Laboratory Last Values Urine pH (Auto) 6.0 01/01/24 10:30 Specific [place] (Auto) 1.010 01/01/24 10:30 Urine Protein (Auto) 0 mg/dL 01/01/24 10:30 Glucose (UA)(Auto) 0 mg/dL 01/01/24 10:30 Urine Ketones (Auto) Negative 01/01/24 10:30 Urine Blood (Auto) 0 Willem/uL 01/01/24 10:30 Urine Nitrite (Auto) Negative 01/01/24 10:30 Urine Bilirubin (Auto) 0 mg/dL 01/01/24 10:30 Urine Urobilinogen (Auto) 0.2 mg/dL 01/01/24 10:30 Leukocyte Esterase (Auto) 0 Solo/uL 01/01/24 10:30 Date of Service: 12/29/23 EXAMINATION: US RETROPERITONEAL COMPLETE (RENAL) FINDINGS: RIGHT KIDNEY: 9.6 x 5.7 x 5.0 cm (SAG x AP x TRV). The kidney is normal in size, contour, and echogenicity. Renal cortical thickness is normal. No calculi or focal parenchymal lesions. No hydronephrosis. LEFT KIDNEY: 9.7 x 5.6 x 4.0 cm (SAG x AP x TRV). The kidney is normal in size, contour, and echogenicity. Renal cortical thickness is normal. No calculi or focal parenchymal lesions. No hydronephrosis. BLADDER: Well distended and normal. Bilateral ureteral jets are demonstrated. Prevoid bladder volume is 316 mL. Postvoid bladder volume is 60.4 mL. There is mild thickening of the bladder wall. ADDITIONAL FINDINGS: The prostate is mildly enlarged with a volume of 27.5 mL. IMPRESSION: 1. Normal appearance of the kidneys. 2. Moderate post void residual. 3. Mild thickening of the bladder wall. 4. Mild enlargement of the prostate. Assessment & Plan Assessment & Plan (1) Incomplete bladder emptying: Code(s): R33.9 - Retention of urine, unspecified Category: Medical (2) Enlarged prostate: Code(s): N40.0 - Benign prostatic hyperplasia without lower urinary tract symptoms Category: Medical (3) Lower urinary tract symptoms: Code(s): R39.9 - Unspecified symptoms and signs involving the genitourinary system Category: Medical (4) Urinary urgency: Code(s): R39.15 - Urgency of urination Category: Medical (5) Incontinence: Code(s): R32 - Unspecified urinary incontinence Category: Medical (6) Nocturia: Code(s): R35.1 - Nocturia Category: Medical (7) Bladder wall thickening: Code(s): N32.89 - Other specified disorders of bladder Category: Medical Plan In office urinalysis results reviewed with the patient today; as noted above. PVR 36 mL Recent retroperitoneal ultrasound results reviewed with the patient and his today; as noted above Recent PSA results reviewed with the patient today; as noted above. Continue bethanechol as discussed and prescribed; refill provided; he has not had an issues given his history of seizures; he would like to continue. Discussed at length correlation of diabetes on lower urinary tract symptoms. Discussed, educated, and stressed the importance of double voiding and attempting to sit when voiding to relax pelvis in to assist with incomplete bladder emptying. Discussed possible near future in office cystoscopy for further assessment evaluation if symptoms arise Discussed potential near future InterStim if symptoms arise. Discussed potential for CIC in the near future if PVRs remain elevated. Follow-up in 3 months with PVR; or sooner with any issues, concerns, and or questions. Orders: Orders AMB Post Void Residual by ultrasound 01/01/24 R39.15 - Urgency of urination AMB Urinalysis Automated 01/01/24 Z13.9 - Encounter for screening, unspecified Medications: Changed From bethanechol chloride 50 mg PO BID 30 days 60 tabs 1RF To bethanechol chloride 50 mg PO BID 180 tabs 1RF 90 days Patient Instructions: The patient had an opportunity to ask questions regarding the treatment plan. All questions were answered. Physical exam, labs, and imaging were discussed and reviewed in detail. As well as risks, benefits, and discussion of treatment choices. No major barriers to understanding were identified. The patient expressed understanding and agreement with the above treatment plan. The patient was made aware they should contact our office by phone for worsening of their current condition, the appearance of new symptoms, or with any questions or concerns. Compliance is encouraged with any medications and follow up testing that is ordered. It is a privilege to be allowed the opportunity to participate in? your urological care.? Again, if you have any questions or concerns If you have any questions or concerns please do not hesitate to contact me. The office is [phone]. This note is constructed using voice recognition software. While every effort has been made to ensure accuracy hat binder errors may have been included. Yours sincerely, REEMA Andrews- Coding Level of Care Code Est Pt Level 3 (92659) Complex EM visit Add On G2211 Diagnoses Incomplete bladder emptying R33.9 Enlarged prostate N40.0 Lower urinary tract symptoms R39.9 Urinary urgency R39.15 Incontinence R32 Nocturia R35.1 Bladder wall thickening N32.89 CPT Codes Post Residual Void - PVR CPT Code: 64023-Zhhh Void Residual by ultrasound ([id number])
== END 2024-01-01 10:49 | disposition home or self-care (01) ==
PROVIDERS: PCP Internal Medicine; Visit Provider Nurse Practitioner Family
DX: R33.9 Retention of urine, unspecified (principal); N40.0 Benign prostatic hyperplasia without lower urinary tract symptoms; R39.9 Unspecified symptoms and signs involving the genitourinary system; R39.15 Urgency of urination; R32 Unspecified urinary incontinence; R35.1 Nocturia; N32.89 Other specified disorders of bladder
CPT/HCPCS: 99213; G2211

== ENCOUNTER → 2024-01-01 10:18 | Outpatient (BNVA) | payer OTHER, SELFPAY | PROVIDERS: PCP Internal Medicine; Visit Provider Nurse Practitioner Family | DX: N40.1 Benign prostatic hyperplasia with lower urinary tract symptoms (principal); R39.9 Unspecified symptoms and signs involving the genitourinary system; R39.15 Urgency of urination; R32 Unspecified urinary incontinence; R35.1 Nocturia; N32.89 Other specified disorders of bladder | CPT/HCPCS: 51798; 81003; 99212 ==

== ENCOUNTER 2024-01-11 12:41 | Outpatient (AMB) | payer OTHER, SELFPAY ==
--- NOTE | 2024-01-11 12:46 | MHC.OFFVIS ---
Vital Signs 01/11/24 12:47 Height 5 ft 4 in Weight 183 lb BMI 31.4 BP 142/78 H Blood Pressure Location Rt brachial Position Sitting Respiration 16 Pulse 92 Pulse Source Palpation Intake Visit Reasons: [id number] Intake Note: Pt presents for a new pt evaluation for Hallucinations. Export Specialist Required: Yes Export Specialist Name: Daughter- Alisa Allergies aspirin [ASPIRIN] Allergy (Intermediate, Verified 01/11/24 12:47) RASH WITH HIGH DOSES Penicillins Allergy (Mild, Verified 01/11/24 12:47) HIVES phenytoin [From Dilantin] Allergy (Mild, Verified 01/11/24 12:47) BURNING SENSATION IN BODY butalbital [BUTALBITAL] Allergy (Unknown, Verified 01/11/24 12:47) HIVES thimerosal [THIMEROSAL] Allergy (Unknown, Verified 01/11/24 12:47) UNKNOWN doxycycline Adverse Reaction (Intermediate, Verified 01/11/24 12:47) penile rash? [place] Allergy (Unknown, Uncoded 01/11/24 12:47) Unknown MOTRIN Allergy (Unknown, Uncoded 01/11/24 12:47) hives Medication List - Last Reconciled 01/11/24 by Claire Acosta MD acetaminophen (Tylenol) 650 mg (2 x 325 mg) PO Q6H PRN albuterol sulfate 90 mcg/actuation (Ventolin HFA) 2 puffs PO Q4-6H PRN amitriptyline 25 mg PO BEDTIME aspirin 81 mg PO DAILY atorvastatin 40 mg PO BEDTIME bethanechol chloride 50 mg PO BID 90 days blood sugar diagnostic (OneTouch Ultra Test strips) test 3 times per day blood-glucose meter (OneTouch Ultra2 Meter) test 3 times per day blood-glucose meter,continuous (FreeStyle Scott 3 Seanor) As directed blood-glucose sensor (FreeStyle Scott 3 Sensor device) As directed change every 14 days cholecalciferol (vitamin D3) 2,000 units PO DAILY dulaglutide (Trulicity) 1.5 mg (0.5 mL) subcut QWEEK 90 days fluticasone furoate-vilanterol 200-25 mcg/dose (Breo Ellipta) 1 inh inhalation DAILY gabapentin 300 mg PO BID insulin glargine (Lantus Solostar U-100 Insulin) 10 units (0.1 mL) subcut DAILY 30 days lancets (OneTouch UltraSoft 2 Lancet) As directed levetiracetam (Keppra) 500 mg PO Q12H lidocaine 5% 1 patch topical DAILY lisinopril 2.5 mg PO DAILY 90 days meclizine 25 mg PO TID PRN metformin 1,000 mg PO BID 90 days montelukast (Singulair) 10 mg PO BEDTIME 90 days morphine 15 mg PO Q8H PRN nebulizer accessories As directed nebulizers (Compact Compressor Nebulizer) As directed omeprazole 20 mg PO DAILY 90 days pen needle, diabetic (BD Ultra-Fine Mini Pen Needle) As directed Inject LAntus 10 u QD polyethylene glycol 3350 (Miralax) 17 grams PO DAILY sertraline 100 mg PO DAILY 90 days tramadol 50 mg PO BID PRN 30 days triamcinolone acetonide 0.5% 1 appl topical BID HPI Comments Details: 74y/o right handed male comes for neurological evaluation of hallucinations He has h/o seizures and was on phenytoin but now on levetiracetam 500mg bid In 1990 he started having seizures 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 He was on dilantin which he stopped 7 years ago . He had a breakthrough seizure in Jul 2024. He was started on levetiracetam 500mg bid.He had 3 seizures since he started on levetiracetam He also reports chronic vertigo and has increased recently.He also has tinnitus . He feels things are moving around often. He denies hallucinations. [facility] Medical History (Updated 01/11/24 @ 13:41 by Claire Acosta MD) Vertigo Seizure Seizure Frequency of micturition Testicular pain Skin cyst Stroke Lipoma of abdominal wall History of carpal tunnel syndrome BERNARD positive Inguinal hernia, bilateral BPH (benign prostatic hyperplasia) Brain tumor Hypercholesterolemia Obstructive sleep apnea Vitamin D deficiency Obesity (BMI 30-39.9) Vitamin B12 deficiency GERD (gastroesophageal reflux disease) Grand mal seizure disorder Erectile dysfunction Osteoarthritis COPD (chronic obstructive pulmonary disease) Tennis elbow Calcaneal spur, right RLS (restless legs syndrome) Pulmonary nodule Insomnia Essential hypertension Diabetes mellitus with hyperglycemia Migraine Surgical History Hx of carpal tunnel repair History of diverticulosis Hx of colonoscopy History of elbow surgery Hx of foot surgery Hx of brain surgery History of partial gastrectomy History of right inguinal hernia repair Hx of prostate biopsy Family History Father Diabetes Throat cancer Heart disease Mother Ovarian cancer Social History Household Members: Spouse Housing: Apartment Are you a primary home care and home health aides teacher to a significant other at home: No Do you presently have visiting nurse or other home services: Yes ([facility]) Alcohol intake: never Patient Tobacco Use Status: Never used Tobacco e-Cigarette/Vaping Use: Never Used Second Hand Smoke Exposure: No Advance Directives Date on File: 06/13/21 service: No Current occupational status: retired Cognitive needs: No Hearing needs: No Vision needs: No Physical Exam Vital Signs: Last Vital Signs Pulse 92 01/11/24 12:47 Resp 16 01/11/24 12:47 BP 142/78 H 01/11/24 12:47 BMI result Body Mass Index 31.4 Const General: cooperative, healthy appearing and comfortable Nutritional Appearance: average body habitus Orientation/consciousness: patient oriented x3 Eyes Pupils: Equal, round and reactive pupils present Neuro Other: vertigo on left gaze General: patient oriented x3, gait normal, tone normal, moves all extremities and no focal motor deficits Cranial nerves: Yes Facial sensation intact/muscles of mastication intact, Yes Equal, round and reactive pupils present, Yes Bilaterally intact EOM present, Yes Nystagmus not present, Yes Normal facial strength present, Yes Midline tongue present, Yes Symmetric palate elevation present and Yes Ability to bilaterally elevate shoulders present Cognition (Neuro): normal cognition Gait exam (Neuro): Normal gait present Motor exam (neuro): 5/5 motor strength present throughout, no tremor noted and Normal motor muscle tone present throughout Deep tendon reflexes (DTR's): Right triceps reflex intensity grade: 1+, Left triceps reflex intensity grade: 1+, Rt Biceps (C5, C6): 1+, Left biceps reflex intensity grade: 1+, Right brachioradialis reflex intensity grade: 1+, Left brachioradialis reflex intensity grade: 1+, Right patellar reflex intensity grade: 1+ and Left patellar reflex intensity grade: 1+ Coordination: [id number] test normal Assessment & Plan Assessment & Plan (1) Seizure: Code(s): R56.9 - Unspecified convulsions Category: Medical (2) Brain tumor: Comment: Surgery 1990 MRI, April 2021 Code(s): D49.6 - Neoplasm of unspecified behavior of brain Category: Medical (3) Vertigo: Code(s): R42 - Dizziness and giddiness Category: Medical Plan Increase Levetiracetam 750mg bid MRI with rebecca to check for tumour recurrence vestibular rehab He denies hallucinations Orders: Orders MR head/brain wo/w con Today R42 - Dizziness and giddiness, R56.9 - Unspecified convulsions PT Evaluation and Treatment Today R42 - Dizziness and giddiness Medications: New levetiracetam 750 mg PO BID 60 tabs 6RF Coding Level of Care Code New Pt Level 4 (86618) Diagnoses Seizure R56.9 Brain tumor D49.6 Vertigo R42
[2024-01-11 12:47] VITALS: BP 142/78; PULSE 92; RESP 16; BMI 31.4
== END 2024-01-11 13:49 | disposition home or self-care (01) ==
PROVIDERS: PCP Internal Medicine; Visit Provider Psychiatry & Neurology Neurology
DX: R56.9 Unspecified convulsions (principal); D49.6 Neoplasm of unspecified behavior of brain; R42 Dizziness and giddiness
CPT/HCPCS: 99204

== ENCOUNTER → 2024-01-11 12:41 | Outpatient (BNVA) | payer OTHER, SELFPAY | PROVIDERS: PCP Internal Medicine; Visit Provider Psychiatry & Neurology Neurology | DX: R42 Dizziness and giddiness (principal); R56.9 Unspecified convulsions; D49.6 Neoplasm of unspecified behavior of brain | CPT/HCPCS: 99202 ==

== ENCOUNTER 2024-02-23 11:19 | Outpatient (AMB) | payer OTHER, SELFPAY ==
--- NOTE | 2024-02-23 11:29 | MHC.OFFVIS ---
Vital Signs 02/23/24 11:30 Height 5 ft 4 in Weight 180 lb BMI 30.9 Handedness Right Intake Visit Reasons: OV - right wrist OA, last injection 08/26/23 Intake Note: Geovanny is a 74 year old right hand dominant male who presents to the office today for right wrist OA, last injection 08/26/23. Patient states the injection gave him 3 weeks of relief. He states his symptoms have returned after. He has complaints of pain on the radial aspect of his right wrist. He would like to repeat this injection today. Allergies aspirin [ASPIRIN] Allergy (Intermediate, Verified 02/23/24 11:33) RASH WITH HIGH DOSES Penicillins Allergy (Mild, Verified 02/23/24 11:33) HIVES phenytoin [From Dilantin] Allergy (Mild, Verified 02/23/24 11:33) BURNING SENSATION IN BODY butalbital [BUTALBITAL] Allergy (Unknown, Verified 02/23/24 11:33) HIVES thimerosal [THIMEROSAL] Allergy (Unknown, Verified 02/23/24 11:33) UNKNOWN doxycycline Adverse Reaction (Intermediate, Verified 02/23/24 11:33) penile rash? Charlotte Allergy (Unknown, Uncoded 02/23/24 11:33) Unknown MOTRIN Allergy (Unknown, Uncoded 02/23/24 11:33) hives HPI HPI OV - right wrist OA, last injection 08/26/23: Details: Patient is a 74 YO right hand dominant male who presents for evaluation and repeat injection in his right wrist for R wrist arthritis s/p proximal row carpectomy (DOS unknown) , last injection 08/26/23. Patient reports that he the injection was effective, but that he began to notice an increase in pain over the last few weeks, and would like a repeat injection today. [facility] Medical History Unspecified disorder of ear Vertigo Seizure Seizure Frequency of micturition Testicular pain Skin cyst Stroke Lipoma of abdominal wall History of carpal tunnel syndrome BERNARD positive Inguinal hernia, bilateral BPH (benign prostatic hyperplasia) Brain tumor Hypercholesterolemia Obstructive sleep apnea Vitamin D deficiency Obesity (BMI 30-39.9) Vitamin B12 deficiency GERD (gastroesophageal reflux disease) Grand mal seizure disorder Erectile dysfunction Osteoarthritis COPD (chronic obstructive pulmonary disease) Tennis elbow Calcaneal spur, right RLS (restless legs syndrome) Pulmonary nodule Insomnia Essential hypertension Diabetes mellitus with hyperglycemia Migraine Surgical History Hx of carpal tunnel repair History of diverticulosis Hx of colonoscopy History of elbow surgery Hx of foot surgery Hx of brain surgery History of partial gastrectomy History of right inguinal hernia repair Hx of prostate biopsy Family History Father Diabetes Throat cancer Heart disease Mother Ovarian cancer Social History Household Members: Spouse Housing: Apartment Are you a primary career services assistant to a significant other at home: No Do you presently have visiting nurse or other home services: Yes ([facility]NA) Alcohol intake: never Patient Tobacco Use Status: Never used Tobacco e-Cigarette/Vaping Use: Never Used Second Hand Smoke Exposure: No Advance Directives Date on File: 06/13/21 service: No Current occupational status: retired Cognitive needs: No Hearing needs: No Vision needs: No Physical Exam Vital Signs: BMI result Body Mass Index 30.9 Extrem Other: Patient is alert, oriented, and in no acute distress. Neuro: Median, ulnar, radial nerves motor and sensory intact and sensation is normal to the tips of all digits. Vascular: Cap refill brisk Pain: Patient reports pain in the R wrist, worsening over the past few weeks ROM: Limited ROM at the right wrist Skin: No lacerations or abrasions. General: No ecchymosis, erythema, or evidence of infection. Psych: Appears grossly normal Affect normal Attitude cooperative Assessment & Plan Assessment & Plan (1) Status post proximal row carpectomy of wrist: Code(s): Z98.890 - Other specified postprocedural states Category: Medical (2) Primary osteoarthritis, right wrist: Code(s): M19.031 - Primary osteoarthritis, right wrist Category: Medical Plan 1. R wrist osteoarthritis, s/p proximal row carpectomy at unknown date Patient wants repeat injection at this time, however with Dr. Overton out of office, this is not possible today Patient understands this, and is amenable to returning when Dr. Overton is in office for discussion of repeat R wrist injection Patient is educated to continue with conservative measures to pain alleviation, such as bracing, tylenol, rest, ice, compression, elevation until evaluation with Dr. Overton Patient will follow up in 2-[address] Overton for possible repeat injection of R hand, sooner with any acute concerns Coding Level of Care Code Est Pt Level 3 (51007) Diagnoses Status post proximal row carpectomy of wrist Z98.890 Primary osteoarthritis, right wrist M19.031
[2024-02-23 11:30] VITALS: BMI 30.9
== END 2024-02-23 12:00 | disposition home or self-care (01) ==
PROVIDERS: PCP Internal Medicine; Visit Provider Orthopaedic Surgery
DX: M19.031 Primary osteoarthritis, right wrist (principal)
CPT/HCPCS: 99213

== ENCOUNTER → 2024-02-23 11:19 | Outpatient (BNVA) | payer MEDICARE, SELFPAY | PROVIDERS: PCP Internal Medicine; Visit Provider Orthopaedic Surgery | DX: M19.031 Primary osteoarthritis, right wrist (principal); Z98.890 Other specified postprocedural states | CPT/HCPCS: 99212 ==

== ENCOUNTER 2024-03-01 10:33 | Outpatient (AMB) | payer OTHER, SELFPAY ==
--- NOTE | 2024-03-01 10:51 | A.OFFVIS_ITS ---
Intake Intake Visit Reasons: T2DM Woodworking Machinist Required: Yes Woodworking Machinist Language: Aircraft Engine Mechanic Supervisor Name: Tanja [facility] Accompanied by: Daughter Allergies aspirin [ASPIRIN] Allergy (Intermediate, Verified 02/23/24 11:33) RASH WITH HIGH DOSES Penicillins Allergy (Mild, Verified 02/23/24 11:33) HIVES phenytoin [From Dilantin] Allergy (Mild, Verified 02/23/24 11:33) BURNING SENSATION IN BODY butalbital [BUTALBITAL] Allergy (Unknown, Verified 02/23/24 11:33) HIVES thimerosal [THIMEROSAL] Allergy (Unknown, Verified 02/23/24 11:33) UNKNOWN doxycycline Adverse Reaction (Intermediate, Verified 02/23/24 11:33) penile rash? [place] Allergy (Unknown, Uncoded 02/23/24 11:33) Unknown MOTRIN Allergy (Unknown, Uncoded 02/23/24 11:33) hives HPI Comprehensive Diabetes Asmnt Most Recent Diabetes Results: Hemoglobin A1c 8.5 % 12/07/19 Microalb/Creat Ratio TNP 12/01/23 Cholesterol 145 mg/dL (<200) 12/01/23 HDL Cholesterol 55 mg/dL (>40) 12/01/23 Triglycerides 70 mg/dL (<150) 12/01/23 Creatinine 1.13 mg/dL (0.5-1.4) 12/01/23 Blood Urea Nitrogen 11 mg/dL (9-16) 12/01/23 Sodium 135 mmol/L (135-145) 08/31/23 Potassium 4.4 mmol/L (3.3-5.1) 08/31/23 Chloride 98 mmol/L (96-108) 08/31/23 Carbon Dioxide 27 mmol/L (22-29) 08/31/23 Calcium 9.3 mg/dL (8.4-10.2) 08/31/23 AST 16 U/L (5-37) 10/12/23 ALT 16 U/L (0-40) 10/12/23 Total Protein 7.1 g/dL (6.5-8.0) 10/12/23 Albumin 3.8 g/dL (3.5-5.0) 10/12/23 [facility] Medical History Unspecified disorder of ear Vertigo Seizure Seizure Frequency of micturition Testicular pain Skin cyst Stroke Lipoma of abdominal wall History of carpal tunnel syndrome BERNARD positive Inguinal hernia, bilateral BPH (benign prostatic hyperplasia) Brain tumor Hypercholesterolemia Obstructive sleep apnea Vitamin D deficiency Obesity (BMI 30-39.9) Vitamin B12 deficiency GERD (gastroesophageal reflux disease) Grand mal seizure disorder Erectile dysfunction Osteoarthritis COPD (chronic obstructive pulmonary disease) Tennis elbow Calcaneal spur, right RLS (restless legs syndrome) Pulmonary nodule Insomnia Essential hypertension Diabetes mellitus with hyperglycemia Migraine Surgical History Hx of carpal tunnel repair History of diverticulosis Hx of colonoscopy History of elbow surgery Hx of foot surgery Hx of brain surgery History of partial gastrectomy History of right inguinal hernia repair Hx of prostate biopsy Family History Father Diabetes Throat cancer Heart disease Mother Ovarian cancer Social History Household Members: Spouse Housing: Apartment Are you a primary healthcare consultant to a significant other at home: No Do you presently have visiting nurse or other home services: Yes ([facility]NA) Alcohol intake: never Patient Tobacco Use Status: Never used Tobacco e-Cigarette/Vaping Use: Never Used Second Hand Smoke Exposure: No Advance Directives Date on File: 06/13/21 service: No Current occupational status: retired Cognitive needs: No Hearing needs: No Vision needs: No Assessment & Plan Assessment & Plan (1) Diabetes mellitus with hyperglycemia: Code(s): E11.65 - Type 2 diabetes mellitus with hyperglycemia Qualifiers: Diabetes mellitus type: type 2 Diabetes mellitus intermission coordinator insulin use: with retirement use Qualified Code(s): E11.65 - Type 2 diabetes mellitus with hyperglycemia; Z79.4 - salvage determiner (current) use of insulin Plan: Learning objectives: The patient was provided with verbal and written education on the following topics as outlined below. Assess patient education level/literacy/barriers Patient questions/concerns, patient has not been able to obtain Scott 3 sensors due to an insurance issue, did not bring meter to today's visit. Patient given to Scott 3 sample sensors, instructed patient to use sample sensors until his appointment with Dr. Ocasio on 03/31/2024 Patient reports he has been on the waiting list for over a year at [facility] Patient given contact number to behavioral health network in [facility]. and [facility] in [place] The patient met all learning objectives and was able to verbalize understanding and provide teach back of education topics discussed . The patient was provided with the opportunity to ask questions and all questions were answered. Topics covered in today?s session included: Medications (If applicable) * Name of medication? * Dosing/administration instructions? * Mechanism of action? * Potential side effects? * Potential adverse reaction and appropriate treatment? * Review onset, peak, duration Assess for concerns re: insurance coverage, cost, barriers to compliance Insulin/Injectables (If applicable) * Storage/care of insulin?? * Injection sites? * Site rotation? * Onset, peak, duration * Drawing up insulin? * Injecting insulin/other injectables? * Sharps disposal Continuous blood glucose monitoring (if applicable) Hypoglycemia and Hyperglycemia * Signs and symptoms? * Causes?? * Treatment? * Preventing hypoglycemia? * When to seek medical attention * Blood glucose targets and how you feel when your blood glucose is in and out of your target ranges. * Monitoring and knowing your A1C. * What can make blood glucose go up and down and preventing high and low blood glucose. * Review of blood sugar targets in expected goal range and outside of expected goal range. * Problem solving and preventing hyper/hypoglycemia. * Sick day management of diabetes. * Using blood sugar results in decision making process in managing diabetes. ?Patient was receptive to information provided and participated in the discussion. Asked?appropriate questions and demonstrated good understanding of the topics discussed.? ? Educational Materials: The patient was provided with the following written educational materials: Target Goal, how to treat hypoglycemia handouts in [place] Smart Goal Assessment:? Patient will keep meals to approximately 60 g of carbohydrate Pt met goal less than 50% New Smart Goal: We will continue with same goal Patient Response to instructions: Comprehension of Instructions: Fair Readiness to make changes:? Pre contemplation How confident they feel about making changes: Poor Follow-up with unix analyst in 2 months after next visit with Dr. Ocasio Portions of this note were created using voice recognition software, please excuse any words or phrases that may have been misinterpreted. Coding Level of Care Code Est Pt Level 1 (19385) Diagnoses Type 2 diabetes mellitus with hyperglycemia, with long-term current use of insulin E11.65; Z79.4 Diabetes mellitus type: type 2 Diabetes mellitus intermission coordinator insulin use: with intermission coordinator use
== END 2024-03-01 11:20 | disposition home or self-care (01) ==
PROVIDERS: PCP Internal Medicine; Visit Provider Registered Nurse Diabetes Educator
DX: E11.65 Type 2 diabetes mellitus with hyperglycemia (principal); Z79.4 Long term (current) use of insulin

== ENCOUNTER → 2024-03-01 10:33 | Outpatient (BNVA) | payer MEDICARE, SELFPAY | PROVIDERS: PCP Internal Medicine; Visit Provider Registered Nurse Diabetes Educator | DX: E11.65 Type 2 diabetes mellitus with hyperglycemia (principal); Z79.4 Long term (current) use of insulin | CPT/HCPCS: 99211 ==

== ENCOUNTER 2024-03-16 10:06 | Outpatient (REF) | payer OTHER, SELFPAY ==
--- NOTE | ~2024-03-16 | FL_ITS ---
EXAMINATION: XR FLUOROSCOPY WITH IMAGES CLINICAL INFORMATION: Primary osteoarthritis right wrist COMPARISON: Right wrist radiographs 08/26/2023 TECHNIQUE: Fluoroscopy provided to: Dr. Overton Fluoroscopy time: 0.1 minutes DAP: 2995.4 Gycm2 Images: 1 FINDINGS: Solitary spot image right breast shows needle placement within the DRUJ at the level of the lateral proximal capitate bone. There is been a proximal row carpectomy. Vascular calcifications noted. FL/FL guided needle placement IMPRESSION: Fluoroscopic guidance. Please refer to the full operative report for details. Electronically signed by: Miguel Cowan MD 05/13/2024 02:48 PM EDT
== END 2024-03-16 10:07 | disposition home or self-care (01) ==
LOC: HO.HOSX 10:06
PROVIDERS: PCP Internal Medicine; Visit Provider Orthopaedic Surgery
DX: M19.031 Primary osteoarthritis, right wrist (principal); Z98.890 Other specified postprocedural states
CPT/HCPCS: 20605; 77002; 99212; J0665; J1010

== ENCOUNTER 2024-03-16 10:06 | Outpatient (AMB) | payer OTHER, SELFPAY ==
[2024-03-16 10:10] VITALS: BMI 30.9
--- NOTE | 2024-03-16 10:10 | A.OFFVIS_ITS ---
Vital Signs 03/16/24 10:10 Height 5 ft 4 in Weight 180 lb BMI 30.9 Intake Visit Reasons: OV - right wrist OA, last injection 08/26/23 Intake Note: Geovanny is a 74 year old right hand dominant male who presents to the office today for right wrist OA, last injection 08/26/23. Patient states the injection gave him 3 weeks of relief, but now symptoms have returned. He has complaints of pain on the radial aspect of his right wrist. He would like to repeat injection today. Russian Rubber Required: Yes Russian Rubber Language: Software Applications Architect Name: UDAY Urban/ROSSANA Allergies aspirin [ASPIRIN] Allergy (Intermediate, Verified 03/16/24 10:10) RASH WITH HIGH DOSES Penicillins Allergy (Mild, Verified 03/16/24 10:10) HIVES phenytoin [From Dilantin] Allergy (Mild, Verified 03/16/24 10:10) BURNING SENSATION IN BODY butalbital [BUTALBITAL] Allergy (Unknown, Verified 03/16/24 10:10) HIVES thimerosal [THIMEROSAL] Allergy (Unknown, Verified 03/16/24 10:10) UNKNOWN doxycycline Adverse Reaction (Intermediate, Verified 03/16/24 10:10) penile rash? [place] Allergy (Unknown, Uncoded 03/16/24 10:10) Unknown MOTRIN Allergy (Unknown, Uncoded 03/16/24 10:10) hives HPI HPI OV - right wrist OA, last injection 08/26/23: Details: Geovanny is a 74 year old right hand dominant primarily Romanian speaking Diabetic man who returns to discuss his right wrist OA. He last received an injection on , with some relief. 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 He continues to have pain and swelling about his wrist, worse with overuse or heavy lifting activities. His pain has worsened in the last few months and he is now wearing his wrist brace more often to help. He says his pain is bad enough now that he is unable to sleep. He struggles to modify his activities and not overuse his wrist, but he says he has been trying to teach his daughter how to do his work. His most recent HgA1c was 9.1% on 12/30/23. He denies any smoking or vaping. [facility] Medical History Unspecified disorder of ear Vertigo Seizure Seizure Frequency of micturition Testicular pain Skin cyst Stroke Lipoma of abdominal wall History of carpal tunnel syndrome BERNARD positive Inguinal hernia, bilateral BPH (benign prostatic hyperplasia) Brain tumor Hypercholesterolemia Obstructive sleep apnea Vitamin D deficiency Obesity (BMI 30-39.9) Vitamin B12 deficiency GERD (gastroesophageal reflux disease) Grand mal seizure disorder Erectile dysfunction Osteoarthritis COPD (chronic obstructive pulmonary disease) Tennis elbow Calcaneal spur, right RLS (restless legs syndrome) Pulmonary nodule Insomnia Essential hypertension Diabetes mellitus with hyperglycemia Migraine Surgical History Hx of carpal tunnel repair History of diverticulosis Hx of colonoscopy History of elbow surgery Hx of foot surgery Hx of brain surgery History of partial gastrectomy History of right inguinal hernia repair Hx of prostate biopsy Family History Father Diabetes Throat cancer Heart disease Mother Ovarian cancer Social History (Updated 03/10/24 @ 14:42 by UDAY Dietz) Household Members: Spouse Housing: Apartment Are you a primary career technical supervisor to a significant other at home: No Do you presently have visiting nurse or other home services: Yes ([facility]NA) Alcohol intake: never Patient Tobacco Use Status: Never used Tobacco e-Cigarette/Vaping Use: Never Used Second Hand Smoke Exposure: No Advance Directives Date on File: 06/13/21 service: No Current occupational status: retired Current occupation: rt handed Cognitive needs: No Hearing needs: No Vision needs: No Physical Exam Vital Signs: BMI result Body Mass Index 30.9 Const General: no acute distress and alert Orientation/consciousness: patient oriented x3 Neuro General: patient oriented x3 Extrem Other: Evaluation of Right Upper Extremity: Neuro: Median, ulnar, radial nerves motor and sensory grossly intact with normal sensation to all digits. No thenar or intrinsic wasting. Vascular: Cap refill brisk. ROM: He can make a fist and he can extend all of his digits. No locking or catching He does have some arthritic changes in his digits Right wrist ROM ~40 degrees of extension and ~30-40 degrees of flexion. Good prono-supination Tenderness over the dorsal radial aspect of his wrist/radiocarpal joint Skin: He has a well-healed longitudinal scar over the dorsal aspect of his wrist. No erythema, warmth or evidence of infection Radiographs: 3 views of the right wrist from 08/26/23 were reviewed by me today in clinic. They show that he has had a proximal row carpectomy. Radiographs are also showing some loss of space at the radial capitate joint.. Significant atherosclerosis. He has some early basal joint arthritis. Psych Appearance: grossly normal Affect: normal affect Attitude: cooperative Office Procedures Fracture Care Details: No fracture, injection , and [id number] for using the FluoroScan for needle guidance. Fracture Billing Code: Fracture Billing Code Assessment & Plan Assessment & Plan (1) Arthritis of right wrist: Code(s): M19.031 - Primary osteoarthritis, right wrist Category: Medical (2) Status post proximal row carpectomy of wrist: Code(s): Z98.890 - Other specified postprocedural states Category: Medical (3) Diabetes mellitus with hyperglycemia: Code(s): E11.65 - Type 2 diabetes mellitus with hyperglycemia Category: Medical Qualifiers: Diabetes mellitus skilled nursing insulin use: with skilled nursing use Diabetes mellitus type: type 2 Qualified Code(s): E11.65 - Type 2 diabetes mellitus with hyperglycemia; Z79.4 - jail (current) use of insulin Plan Assessment & Plan: 1. Right wrist osteoarthritis, S/P injection Date of injection: 08/26/23 2. S/P right proximal row carpectomy DOS: ~2018 at [facility] 3. S/P right carpal tunnel release DOS: ~2017 at [facility] Normal sensation in median nerve distribution today. I educated the patient and his about these conditions We talked about the importance of activity modification. I reminded him that while his proximal row carpectomy help preserve motion and decreased his pain, he does not have a normal wrist. I reminded him that heavy or impact type activities are likely to cause him pain. He has braces at home to use when symptomatic. At this point surgical options would likely involve a fairly large procedure like a total wrist arthrodesis which would severely limit his right wrist range of motion and use. He understands that a wrist arthrodesis is only to be undertaken if absolutely necessary. The patient would like to proceed with a repeat injection today Injection #1: The risks and benefits of a steroid injection including but not limited to risk of damage to blood vessels, nerve, tendon, infection, skin bleaching, persistent or worsening pain, and failure to improve symptoms were discussed with the patient and they wish to proceed with the steroid injection. Once consent was obtained the skin over the dorsum of the Right was sterilely prepped. The joint was then injected with a combination of 1 mL of (40 mg/ml} Depo-Medrol and 1% plain Lidocaine, using the mini C-arm for needle guidance. The patient appears to have tolerated the procedure well and with no complications. He had good early relief before leaving clinic today. He knows that they may not have another steroid injection into this joint for least 4 months. Scribed for Zulema Overton MD by Deangelo Rodriguez, lpn or medical assistant, on 03/16/24 at 10:20 AM, EST. Orders: Orders FL guided needle placement Today M19.031 - Primary osteoarthritis, right wrist, Z98.890 - Other specified postprocedural states Coding Level of Care Code Est Pt Level 3 (06237) Diagnoses Arthritis of right wrist M19.031 Status post proximal row carpectomy of wrist Z98.890 Type 2 diabetes mellitus with hyperglycemia, with long-term current use of insulin E11.65; Z79.4 Diabetes mellitus skilled nursing insulin use: with carding doubler use Diabetes mellitus type: type 2 CPT Codes Fracture Care - Fracture Billing Code: Fracture Billing Code ([id number])
== END 2024-03-16 10:48 | disposition home or self-care (01) ==
LOC: HO.HOS 10:06
PROVIDERS: PCP Internal Medicine; Visit Provider Orthopaedic Surgery
DX: M19.031 Primary osteoarthritis, right wrist (principal); E11.65 Type 2 diabetes mellitus with hyperglycemia; Z79.4 Long term (current) use of insulin
CPT/HCPCS: 20605; 77002; 99213

== ENCOUNTER 2024-03-28 17:37 | Emergency (ER) | payer OTHER, SELFPAY | END 2024-03-28 19:51 | disposition left against medical advice (07) | PROVIDERS: Emergency Provider Emergency Medicine; PCP Internal Medicine | DX: M54.50 Low back pain, unspecified (principal); Z53.21 Procedure and treatment not carried out due to patient leaving prior to being seen by health care provider ==

== ENCOUNTER 2024-03-31 11:25 | Outpatient (AMB) | payer OTHER, SELFPAY ==
--- NOTE | 2024-03-31 11:28 | A.OFFVIS_ITS ---
Vital Signs 03/31/24 11:29 Height 5 ft 4 in Weight 178 lb 9.191 oz BMI 30.6 BP 124/62 Blood Pressure Location Rt brachial Position Sitting Pulse 90 Pulse Source Pulse Oximeter Intake Visit Reasons: T2DM/LVM Intake Note: Patient presents today to re-establish treatment for Type 2 Diabetes Mellitus: Last Diabetic eye exam was on: DUE Last Podiatry exam was on: Does not see a Planning Consultant Most recent HbA1c: 8.4%, 03/31/2024 Random Glucose- 254 mg/dL, Today Prosthetics Assistant Required: Yes Prosthetics Assistant Language: Nitroglycerin Separator Operator Services: Prosthetics Assistant Offered & Declined (Patient signed the refusal to accept interpretive service) Prosthetics Assistant Name: UDAY Mccabe/ISH ORR Information Interpreted: non-clinical & clinical Accompanied by: Daughter Allergies aspirin [ASPIRIN] Allergy (Intermediate, Verified 04/01/24 11:58) RASH WITH HIGH DOSES Penicillins Allergy (Mild, Verified 04/01/24 11:58) HIVES phenytoin [From Dilantin] Allergy (Mild, Verified 04/01/24 11:58) BURNING SENSATION IN BODY butalbital [BUTALBITAL] Allergy (Unknown, Verified 04/01/24 11:58) HIVES thimerosal [THIMEROSAL] Allergy (Unknown, Verified 04/01/24 11:58) UNKNOWN doxycycline Adverse Reaction (Intermediate, Verified 04/01/24 11:58) penile rash? Charlotte Allergy (Unknown, Uncoded 04/01/24 11:58) Unknown MOTRIN Allergy (Unknown, Uncoded 04/01/24 11:58) hives Medication List - Last Reconciled 03/31/24 by Geeta Osuna MD acetaminophen (Tylenol) 650 mg (2 x 325 mg) PO Q6H PRN albuterol sulfate 90 mcg/actuation (Ventolin HFA) 2 puffs PO Q4-6H PRN amitriptyline 25 mg PO BEDTIME aspirin 81 mg PO DAILY atorvastatin 40 mg PO BEDTIME bethanechol chloride 50 mg PO BID 90 days blood sugar diagnostic (OneTouch Ultra Test strips) test 3 times per day blood-glucose meter (OneTouch Ultra2 Meter) test 3 times per day blood-glucose meter,continuous (FreeStyle Scott 3 [place]) As directed blood-glucose sensor (FreeStyle Scott 3 Sensor device) As directed change every 14 days cholecalciferol (vitamin D3) 2,000 units PO DAILY dulaglutide (Trulicity) 1.5 mg (0.5 mL) subcut QWEEK 90 days fluticasone furoate-vilanterol 200-25 mcg/dose (Breo Ellipta) 1 inh inhalation DAILY gabapentin 300 mg PO BID insulin glargine (Lantus Solostar U-100 Insulin) 12 units subcut DAILY lancets (Minerva BiotechnologiesTouch UltraSoft 2 Lancet) As directed levetiracetam (Keppra) 500 mg PO Q12H levetiracetam 750 mg PO BID lidocaine 5% 1 patch topical DAILY lisinopril 2.5 mg PO DAILY 90 days meclizine 25 mg PO TID PRN metformin 1,000 mg PO BID 90 days montelukast (Singulair) 10 mg PO BEDTIME 90 days nebulizer accessories As directed nebulizers (Compact Compressor Nebulizer) As directed omeprazole 20 mg PO DAILY 90 days pen needle, diabetic (BD Ultra-Fine Mini Pen Needle) As directed Inject LAntus 10 u QD sertraline 100 mg PO DAILY HPI Comments Details: Patient is a 74-year-old male with DM type 2 diagnosed in his 40s or 50s, presenting for diabetic follow up. Past medical history:DM2, COPD, epilipesy, cataracts Micro and macrovascular complications: +PVD. Diabetes medications: Lantus 12 units, Trulicity 1.5 mg/dl, Metformin 1000 mg twice a day. Trouble with trulicity supply. Has missed multiple doses Had scott 3 then had issues getting sensors. Symptoms reported: at night cramping in lower extremities Hypoglycemia: No . Hyperglycemia: denies urinary frequency, +polydypsia Diet: 1-3 meals/day. Drinks throughout day: water and diet soda. Exercise: limited Overdue eye exam [facility] Medical History Unspecified disorder of ear Vertigo Seizure Seizure Frequency of micturition Testicular pain Skin cyst Stroke Lipoma of abdominal wall History of carpal tunnel syndrome BERNARD positive Inguinal hernia, bilateral BPH (benign prostatic hyperplasia) Brain tumor Hypercholesterolemia Obstructive sleep apnea Vitamin D deficiency Obesity (BMI 30-39.9) Vitamin B12 deficiency GERD (gastroesophageal reflux disease) Grand mal seizure disorder Erectile dysfunction Osteoarthritis COPD (chronic obstructive pulmonary disease) Tennis elbow Calcaneal spur, right RLS (restless legs syndrome) Pulmonary nodule Insomnia Essential hypertension Diabetes mellitus with hyperglycemia Migraine Surgical History Hx of carpal tunnel repair History of diverticulosis Hx of colonoscopy History of elbow surgery Hx of foot surgery Hx of brain surgery History of partial gastrectomy History of right inguinal hernia repair Hx of prostate biopsy Family History Father Diabetes Throat cancer Heart disease Mother Ovarian cancer Social History Household Members: Spouse Housing: Apartment Are you a primary healthcare customer service to a significant other at home: No Do you presently have visiting nurse or other home services: Yes (VNA) Alcohol intake: never Patient Tobacco Use Status: Never used Tobacco e-Cigarette/Vaping Use: Never Used Second Hand Smoke Exposure: No Advance Directives Date on File: 06/13/21 service: No Current occupational status: retired Current occupation: rt handed Cognitive needs: No Hearing needs: No Vision needs: No Physical Exam Vital Signs: Last Vital Signs Pulse 90 03/31/24 11:29 BP 124/62 03/31/24 11:29 BMI result Body Mass Index 30.6 Results AMB Hemoglobin A1c AMB Hemoglobin A1c 8.4 % Last Edit by UDAY Mccabe on 03/31/24 11:48 Results Reviewed Results Reviewed: Laboratory Last Values Glucose (Clinic) 254 mg/dL (60-115) H 03/31/24 11:37 Hgb A1c (Clinic) 8.4 % (4.0-6.0) H 03/31/24 11:46 Assessment & Plan Assessment & Plan (1) Diabetic neuropathy: Code(s): E11.40 - Type 2 diabetes mellitus with diabetic neuropathy, unspecified Category: Medical Qualifiers: Diabetes mellitus complication detail: diabetic polyneuropathy Diabetes mellitus type: type 2 Qualified Code(s): E11.42 - Type 2 diabetes mellitus with diabetic polyneuropathy Plan: Switch trulicity to ozempic Increase lantus to 16 units. Conservative changes pending access to more readings Advised annual eye exams (2) Diabetes mellitus with hyperglycemia: Code(s): E11.65 - Type 2 diabetes mellitus with hyperglycemia Category: Medical Qualifiers: Diabetes mellitus termite control representative insulin use: with intermediate use Diabetes mellitus type: type 2 Qualified Code(s): E11.65 - Type 2 diabetes mellitus with hyperglycemia; Z79.4 - [facility] (current) use of insulin Plan: see above (3) Insulin long-term use: Code(s): Z79.4 - terminal press operator (current) use of insulin Category: Medical Plan: see above Orders: Orders AMB Hemoglobin A1c 03/31/24 E11.65 - Type 2 diabetes mellitus with hyperglycemia, Z79.4 - [facility] (current) use of insulin Medications: New semaglutide (Ozempic) 1 mg (0.75 mL) subcut QWEEK 9 mL 3RF FreeStyle Precision Mike Strips (blood sugar diagnostic) As directed 50 ea 0RF NS E11.65 - Type 2 diabetes mellitus with hyperglycemia, Z79.4 - [facility] (current) use of insulin Changed From insulin glargine (Lantus Solostar U-100 Insulin) 12 units subcut DAILY E11.65 - Type 2 diabetes mellitus with hyperglycemia To insulin glargine (Lantus Solostar U-100 Insulin) 16 units subcut DAILY E11.65 - Type 2 diabetes mellitus with hyperglycemia From blood-glucose sensor (FreeStyle Scott 3 Sensor device) As directed change every 14 days 6 ea 5RF E11.65 - Type 2 diabetes mellitus with hyperglycemia, Z79.4 - [facility] (current) use of insulin To FreeStyle Scott 3 Sensor (blood-glucose sensor) As directed change every 14 days 9 ea 5RF NS E11.65 - Type 2 diabetes mellitus with hyperglycemia, Z79.4 - terminal press operator (current) use of insulin From blood-glucose meter,continuous (FreeStyle Scott 3 [place]) As directed 1 ea 0RF E11.65 - Type 2 diabetes mellitus with hyperglycemia, Z79.4 - terminal press operator (current) use of insulin To FreeStyle Scott 3 [place] (blood-glucose meter,continuous) As directed 1 ea 0RF NS E11.65 - Type 2 diabetes mellitus with hyperglycemia, Z79.4 - [facility] (current) use of insulin Refilled blood-glucose meter,continuous (FreeStyle Scott 3 [place]) As directed 1 ea 0RF blood-glucose sensor (FreeStyle Scott 3 Sensor device) As directed change every 14 days 6 ea 5RF Discontinued blood-glucose meter (OneTouch Ultra2 Meter) Discontinued Reason: Doctor's Order test 3 times per day 1 ea 0RF E11.65 - Type 2 diabetes mellitus with hyperglycemia, Z79.4 - [facility] (current) use of insulin blood sugar diagnostic (OneTouch Ultra Test strips) Discontinued Reason: Doctor's Order test 3 times per day 100 ea 5RF E11.65 - Type 2 diabetes mellitus with hyperglycemia, Z79.4 - [facility] (current) use of insulin dulaglutide (Trulicity) Discontinued Reason: Doctor's Order 1.5 mg (0.5 mL) subcut QWEEK 90 days 6.5 mL 1RF Coding Level of Care Code Est Pt Level 4 (25187) Diagnoses Diabetic polyneuropathy associated with type 2 diabetes mellitus E11.42 Diabetes mellitus complication detail: diabetic polyneuropathy Diabetes mellitus type: type 2 Type 2 diabetes mellitus with hyperglycemia, with long-term current use of insulin E11.65; Z79.4 Diabetes mellitus intermediate insulin use: with intermediate use Diabetes mellitus type: type 2 Insulin long-term use Z79.4
[2024-03-31 11:29] VITALS: BP 124/62; PULSE 90; BMI 30.6
[2024-03-31 11:42] LABS: Glucose, Whole Blood 254 mg/dL (60-115)
== END 2024-03-31 12:10 | disposition home or self-care (01) ==
PROVIDERS: PCP Internal Medicine; Visit Provider Internal Medicine
DX: E11.42 Type 2 diabetes mellitus with diabetic polyneuropathy (principal); E11.65 Type 2 diabetes mellitus with hyperglycemia; Z79.4 Long term (current) use of insulin
CPT/HCPCS: 99214

== ENCOUNTER → 2024-03-31 11:25 | Outpatient (BNVA) | payer OTHER, SELFPAY | PROVIDERS: PCP Internal Medicine; Visit Provider Internal Medicine | DX: E11.65 Type 2 diabetes mellitus with hyperglycemia (principal); E11.42 Type 2 diabetes mellitus with diabetic polyneuropathy; I73.9 Peripheral vascular disease, unspecified; Z79.84 Long term (current) use of oral hypoglycemic drugs; Z79.85 Long-term (current) use of injectable non-insulin antidiabetic drugs; Z79.4 Long term (current) use of insulin | CPT/HCPCS: 82947; 83036; 99212 ==

== ENCOUNTER 2024-04-01 11:16 | Outpatient (AMB) | payer OTHER, SELFPAY ==
--- NOTE | 2024-04-01 11:34 | A.OFFVIS_ITS ---
Intake Visit Reasons: 3m/PVR Intake Note: Patient presents today for follow up visit on: BPH and Incontinence Urology Medications: Bethanechol (patient stated that he discontinued x1 month ago because he felt better) Blood Thinner: none PVR: 28ml's Chocolate Refining Roller Required: No Accompanied by: Self / Same As Patient Allergies aspirin [ASPIRIN] Allergy (Intermediate, Verified 04/01/24 11:58) RASH WITH HIGH DOSES Penicillins Allergy (Mild, Verified 04/01/24 11:58) HIVES phenytoin [From Dilantin] Allergy (Mild, Verified 04/01/24 11:58) BURNING SENSATION IN BODY butalbital [BUTALBITAL] Allergy (Unknown, Verified 04/01/24 11:58) HIVES thimerosal [THIMEROSAL] Allergy (Unknown, Verified 04/01/24 11:58) UNKNOWN doxycycline Adverse Reaction (Intermediate, Verified 04/01/24 11:58) penile rash? [place] Allergy (Unknown, Uncoded 04/01/24 11:58) Unknown MOTRIN Allergy (Unknown, Uncoded 04/01/24 11:58) hives Medication List - Last Reconciled 04/01/24 by REEMA Andrews-RYLAN acetaminophen (Tylenol) 650 mg (2 x 325 mg) PO Q6H PRN albuterol sulfate 90 mcg/actuation (Ventolin HFA) 2 puffs PO Q4-6H PRN amitriptyline 25 mg PO BEDTIME aspirin 81 mg PO DAILY atorvastatin 40 mg PO BEDTIME cholecalciferol (vitamin D3) 2,000 units PO DAILY fluticasone furoate-vilanterol 200-25 mcg/dose (Breo Ellipta) 1 inh inhalation DAILY FreeStyle Scott 3 Renault (blood-glucose meter,continuous) As directed NS FreeStyle Scott 3 Sensor (blood-glucose sensor) As directed change every 14 days NS FreeStyle Precision Mike Strips (blood sugar diagnostic) As directed NS gabapentin 300 mg PO BID insulin glargine (Lantus Solostar U-100 Insulin) 16 units subcut DAILY lancets (OneTouch UltraSoft 2 Lancet) As directed levetiracetam (Keppra) 500 mg PO Q12H levetiracetam 750 mg PO BID lidocaine 5% 1 patch topical DAILY lisinopril 2.5 mg PO DAILY 90 days meclizine 25 mg PO TID PRN metformin 1,000 mg PO BID 90 days montelukast (Singulair) 10 mg PO BEDTIME 90 days nebulizer accessories As directed nebulizers (Compact Compressor Nebulizer) As directed omeprazole 20 mg PO DAILY 90 days pen needle, diabetic (BD Ultra-Fine Mini Pen Needle) As directed Inject LAntus 10 u QD semaglutide (Ozempic) 1 mg (0.75 mL) subcut QWEEK sertraline 100 mg PO DAILY HPI Comments Details: Geovanny is a pleasant 74-year-old [place]-speaking patient of Dr. Byrne. He has a past medical history of testicular pain, stroke, lipoma of abdominal wall, carpal tunnel syndrome, BERNARD positive, inguinal hernia, brain tumor with surgical intervention in 1990, hypercholesteremia, obstructive sleep apnea, vitamin-D deficiency, GERD, seizures, erectile dysfunction, osteoarthritis, COPD, restless leg syndrome, insomnia, hypertension, diabetes, and migraines. He presents to the office today for follow-up. In discussion with the patient today he reports having stopped bethanechol as prescribed as he felt his urinary symptoms have since subsided. Feels he knows when his bladder is not empty. In office urinalysis results reviewed with the patient today. PVR 28 mL. Previous workup has included a retroperitoneal ultrasound noting bilateral kidneys with no calculi, lesions, and or hydronephrosis. The bladder is well distended and normal. Bladder he jets are demonstrated. Pre void bladder volume is approximately 315 mL. Postvoid bladder volume is approximately 60 mL. There is mild thickening of the bladder wall. The prostate is mildly enlarged with a volume of approximately 28 mL. PSAs 10/28 0.7, 12/01 1.1 In office urinalysis results reviewed with the patient today. PVR significantly improved from 730m's to 28mLs today. He currently denies any bothersome urinary issues or concerns. Discussed affects of diabetes regarding lower urinary tract symptoms patient is experiencing. He otherwise denies hematuria, dysuria, foul smelling urine, changes to urinary stream, flank pain, fever, and or chills. He otherwise offers no other issues or concerns at this time. [facility] Medical History Unspecified disorder of ear Vertigo Seizure Seizure Frequency of micturition Testicular pain Skin cyst Stroke Lipoma of abdominal wall History of carpal tunnel syndrome BERNARD positive Inguinal hernia, bilateral BPH (benign prostatic hyperplasia) Brain tumor Hypercholesterolemia Obstructive sleep apnea Vitamin D deficiency Obesity (BMI 30-39.9) Vitamin B12 deficiency GERD (gastroesophageal reflux disease) Grand mal seizure disorder Erectile dysfunction Osteoarthritis COPD (chronic obstructive pulmonary disease) Tennis elbow Calcaneal spur, right RLS (restless legs syndrome) Pulmonary nodule Insomnia Essential hypertension Diabetes mellitus with hyperglycemia Migraine Surgical History Hx of carpal tunnel repair History of diverticulosis Hx of colonoscopy History of elbow surgery Hx of foot surgery Hx of brain surgery History of partial gastrectomy History of right inguinal hernia repair Hx of prostate biopsy Family History Father Diabetes Throat cancer Heart disease Mother Ovarian cancer Social History Household Members: Spouse Housing: Apartment Are you a primary medication care manager to a significant other at home: No Do you presently have visiting nurse or other home services: Yes ([facility]) Alcohol intake: never Patient Tobacco Use Status: Never used Tobacco e-Cigarette/Vaping Use: Never Used Second Hand Smoke Exposure: No Advance Directives Date on File: 06/13/21 service: No Current occupational status: retired Current occupation: rt handed Cognitive needs: No Hearing needs: No Vision needs: No Review of Systems Const Reports no additional complaints Eyes Reports no additional complaints ENT Reports no additional complaints Card Reports as per [facility] Resp Reports as per [facility] GI Reports as per HPI Reports as per HPI Musc Reports as per HPI Neuro Reports as per HPI Psych Reports as per HPI Endo Reports as per HPI Zeeshan/Lymph Reports no additional complaints Aller/Immun Reports no additional complaints Physical Exam Const General: cooperative, healthy appearing, comfortable, no acute distress, well developed, alert and awake Orientation/consciousness: patient oriented x3 Limitations: no limitations HEENT Head: Yes normal to inspection, Yes normocephalic and Yes atraumatic Ears: hearing grossly normal bilaterally Eyes General: appearance normal, both eyes and all related structures Neck Neck: Yes normal visual inspection and Yes trachea midline Chest Chest palpation & inspection: normal inspection of the chest Resp Effort & Inspection: normal respiratory effort and able to speak in complete sentences Cardio Rate: regular rate GI Inspection: Yes normal to inspection General: Yes no CVA tenderness Back/Spine/Pelvis Back: no CVA tenderness Skin General skin exam: no rashes or lesions noted Neuro General: patient oriented x3 Extrem General: Yes normal to inspection Psych Appearance: grossly normal and well kempt Mental Status: mental status grossly normal Speech and movement: Normal speech and movement present and Clear speech present Affect: normal affect Attitude: cooperative Thought process: Normal thought process present Thought content: Normal thought content present Insight: Fair insight present (Psych) Judgement: Fair judgement present (Psych) Office Procedures Post Void Residual Post Residual Void Post Void Residual (PVR): 28 [id number] Void Residual by ultrasound Results AMB Urinalysis, Automated UA Leukoctes 0 Solo/uL Last Edit by Merge Social on 04/01/24 11:49 UA Nitrite Last Edit by Merge Social on 04/01/24 11:49 UA Urobilinogen 0.2 mg/dL Last Edit by Merge Social on 04/01/24 11:49 UA Protein 0 mg/dL Last Edit by Merge Social on 04/01/24 11:49 UA pH 6.0 Last Edit by Merge Social on 04/01/24 11:49 UA Blood 0 Willem/uL Last Edit by Merge Social on 04/01/24 11:49 UA Specific [place] 1.005 Last Edit by Merge Social on 04/01/24 11:49 UA Ketone Last Edit by Merge Social on 04/01/24 11:49 UA Bilirubin 0 mg/dL Last Edit by Merge Social on 04/01/24 11:49 UA Glucose 0 mg/dL Last Edit by Merge Social on 04/01/24 11:49 Results Reviewed Results Reviewed: Laboratory Last Values Urine pH (Auto) 6.0 04/01/24 11:47 Specific [place] (Auto) 1.005 04/01/24 11:47 Urine Protein (Auto) 0 mg/dL 04/01/24 11:47 Glucose (UA)(Auto) 0 mg/dL 04/01/24 11:47 Urine Blood (Auto) 0 Willem/uL 04/01/24 11:47 Urine Bilirubin (Auto) 0 mg/dL 04/01/24 11:47 Urine Urobilinogen (Auto) 0.2 mg/dL 04/01/24 11:47 Leukocyte Esterase (Auto) 0 Solo/uL 04/01/24 11:47 Assessment & Plan Assessment & Plan (1) Enlarged prostate: Code(s): N40.0 - Benign prostatic hyperplasia without lower urinary tract symptoms Category: Medical (2) Lower urinary tract symptoms: Code(s): R39.9 - Unspecified symptoms and signs involving the genitourinary system Category: Medical (3) Nocturia: Code(s): R35.1 - Nocturia Category: Medical (4) Bladder wall thickening: Code(s): N32.89 - Other specified disorders of bladder Category: Medical (5) Incomplete bladder emptying: Code(s): R33.9 - Retention of urine, unspecified Category: Medical (6) Urinary urgency: Code(s): R39.15 - Urgency of urination Category: Medical (7) Incontinence: Code(s): R32 - Unspecified urinary incontinence Category: Medical Plan In office urinalysis results reviewed with the patient today; as noted above. PVR 28 mL Patient reports significant improvement in lower urinary tract symptoms he had been experiencing he would like to continue without bethanechol at this time as he feels symptoms have improved. Patient currently denies any bothersome urinary issues. He is ahppy with his current voiding parameters. Discussed at length correlation of diabetes on lower urinary tract symptoms. Discussed possible near future in office cystoscopy for further assessment evaluation if symptoms arise. Follow-up in 6 months with PVR and PSA; or sooner with any issues, concerns, and or questions. Orders: Orders AMB Urinalysis Automated Today Z13.9 - Encounter for screening, unspecified AMB Post Void Residual by ultrasound Today R35.1 - Nocturia Prostate Specific Antigen 6 Months N32.89 - Other specified disorders of bladder, N40.0 - Benign prostatic hyperplasia without lower urinary tract symptoms, R35.1 - Nocturia, R39.9 - Unspecified symptoms and signs involving the genitourinary system Patient Instructions: The patient had an opportunity to ask questions regarding the treatment plan. All questions were answered. Physical exam, labs, and imaging were discussed and reviewed in detail. As well as risks, benefits, and discussion of treatment choices. No major barriers to understanding were identified. The patient expressed understanding and agreement with the above treatment plan. The patient was made aware they should contact our office by phone for worsening of their current condition, the appearance of new symptoms, or with any questions or concerns. Compliance is encouraged with any medications and follow up testing that is ordered. It is a privilege to be allowed the opportunity to participate in? your urological care.? Again, if you have any questions or concerns If you have any questions or concerns please do not hesitate to contact me. The office is [phone]. This note is constructed using voice recognition software. While every effort has been made to ensure accuracy splicing machine operator automatic errors may have been included. Yours sincerely, NICOLE Andrews Coding Level of Care Code Est Pt Level 3 (02375) Complex EM visit Add On G2211 Diagnoses Enlarged prostate N40.0 Lower urinary tract symptoms R39.9 Nocturia R35.1 Bladder wall thickening N32.89 Incomplete bladder emptying R33.9 Urinary urgency R39.15 Incontinence R32 CPT Codes Post Residual Void - PVR CPT Code: 41722-Umcg Void Residual by ultrasound ([id number])
== END 2024-04-01 12:01 | disposition home or self-care (01) ==
PROVIDERS: PCP Internal Medicine; Visit Provider Nurse Practitioner Family
DX: N40.0 Benign prostatic hyperplasia without lower urinary tract symptoms (principal); R39.9 Unspecified symptoms and signs involving the genitourinary system; R35.1 Nocturia; N32.89 Other specified disorders of bladder; R33.9 Retention of urine, unspecified; R39.15 Urgency of urination; R32 Unspecified urinary incontinence; Z13.9 Encounter for screening, unspecified
CPT/HCPCS: 99213; G2211

== ENCOUNTER → 2024-04-01 11:16 | Outpatient (BNVA) | payer OTHER, SELFPAY | PROVIDERS: PCP Internal Medicine; Visit Provider Nurse Practitioner Family | DX: N40.1 Benign prostatic hyperplasia with lower urinary tract symptoms (principal); R33.8 Other retention of urine; N32.89 Other specified disorders of bladder; R39.15 Urgency of urination; R35.1 Nocturia; R32 Unspecified urinary incontinence; N52.9 Male erectile dysfunction, unspecified | CPT/HCPCS: 51798; 81003; 99212 ==

== ENCOUNTER 2024-04-08 20:05 | Emergency (ER) | payer OTHER, SELFPAY ==
[2024-04-08 20:24] VITALS: BP 138/93; PULSE 98; RESP 16; TEMP 37; O2SAT 99; BMI 31.0
--- NOTE | 2024-04-08 20:24 | ED_ITS ---
HPI - General Adult General Chief complaint: Skin/Abscess/Foreign Body Stated complaint: rash on L forearm Time Seen by Provider: 04/08/24 22:40 Source: patient, RN notes reviewed and old records reviewed Mode of arrival: ambulatory Limitations: no limitations History of Present Illness ED Provider: Antolin HPI narrative: 74-year-old male presents for evaluation of a rash to his left forearm Patient reports that he was bitten by a mosquito on the left forearm about 4 days ago. He states he has had an itchy rash to left forearm ever since. He reports fevers at home as high as 101 last night but has not had any fevers today. He reports intermittent headaches which he still has today. He does endorse a history of migraine headaches He has no other complaints or concerns at this time. Denies respiratory symptoms such as cough, sore throat, congestion or runny nose Related Data Home Medications ?Medication ?Instructions ?Recorded ?Confirmed insulin glargine 100 unit/mL (3 16 unit subcut DAILY 03/31/24 03/31/24 mL) subcutaneous pen (Lantus Solostar U-100 Insulin) sertraline 100 mg tablet 100 mg PO DAILY 03/31/24 03/31/24 Previous Rx's ?Medication ?Instructions ?Recorded nebulizer accessories #1 ea 07/09/21 nebulizers (Compact Compressor #1 ea 07/09/21 Nebulizer) lancets 30 gauge (OneTouch #100 ea 01/14/23 UltraSoft 2 Lancet) albuterol sulfate 90 mcg/actuation 2 puff PO Q4-6H PRN for wheezing 01/20/23 aerosol inhaler (Ventolin HFA) #18 grams acetaminophen 325 mg capsule 650 mg (2 x 325 mg) PO Q6H PRN 02/04/23 (Tylenol) pain #30 caps pen needle, diabetic 31 gauge x #100 ea 03/13/23 3/16 (BD Ultra-Fine Mini Pen Needle) montelukast 10 mg tablet 10 mg PO BEDTIME 90 days #90 tabs 06/03/23 (Singulair) lidocaine 5 % topical patch 1 patch topical DAILY #30 ea 09/01/23 gabapentin 300 mg capsule 300 mg PO BID #180 caps 09/23/23 atorvastatin 40 mg tablet 40 mg PO BEDTIME #90 tabs 11/03/23 cholecalciferol (vitamin D3) 50 2,000 unit PO DAILY #90 caps 11/03/23 mcg (2,000 unit) capsule metformin 1,000 mg tablet 1,000 mg PO BID 90 days #180 tabs 11/03/23 omeprazole 20 mg capsule,delayed 20 mg PO DAILY 90 days #90 caps 12/30/23 release fluticasone furoate 200 1 inh inhalation DAILY #60 ea 01/11/24 mcg-vilanterol 25 mcg/dose inhalation powder (Breo Ellipta) levetiracetam 750 mg tablet 750 mg PO BID #60 tabs 01/11/24 aspirin 81 mg tablet,delayed 81 mg PO DAILY #90 tabs 01/13/24 release lisinopril 2.5 mg tablet 2.5 mg PO DAILY 90 days #90 tabs 01/13/24 levetiracetam 500 mg tablet 500 mg PO Q12H #60 tabs 01/14/24 (Keppra) meclizine 25 mg tablet 25 mg PO TID PRN dizziness #60 tabs 01/14/24 amitriptyline 25 mg tablet 25 mg PO BEDTIME #90 tabs 03/27/24 FreeStyle Scott 3 Denhoff #1 ea 03/31/24 (blood-glucose meter,continuous) FreeStyle Scott 3 Sensor #9 ea 03/31/24 (blood-glucose sensor) semaglutide 1 mg/dose (4 mg/3 mL) 1 mg (0.75 mL) subcut QWEEK #9 mL 03/31/24 subcutaneous pen injector (Ozempic) FreeStyle Precision Mike Strips #50 ea 04/05/24 (blood sugar diagnostic) Allergies Allergy/AdvReac Type Severity Reaction Status Date / Time aspirin [ASPIRIN] Allergy Intermediate RASH WITH Verified 04/08/24 20:28 HIGH DOSES Penicillins Allergy Mild HIVES Verified 04/08/24 20:28 phenytoin [From Dilantin] Allergy Mild BURNING Verified 04/08/24 20:28 SENSATION IN BODY butalbital [BUTALBITAL] Allergy Unknown HIVES Verified 04/08/24 20:28 thimerosal [THIMEROSAL] Allergy Unknown UNKNOWN Verified 04/08/24 20:28 doxycycline AdvReac Intermediate penile Verified 04/08/24 20:28 rash? [place] Allergy Unknown Unknown Uncoded 04/01/24 11:58 MOTRIN Allergy Unknown hives Uncoded 04/01/24 11:58 Review of Systems 2 Constitutional: Constitutional: Reports body ache(s), Reports fever(s) and Reports headache(s) ENT: Reports headache(s), Denies nasal congestion and Denies sore throat Cardiovascular: Cardiovascular: Denies chest pain and Denies dyspnea Respiratory: Respiratory: Denies cough and Denies dyspnea Gastrointestinal: Gastrointestinal: Denies abdominal pain, Denies nausea and Denies vomiting Integumentary/Breasts: Skin/Breast: Reports pruritus, Reports erythema and Reports rash Neurologic: Reports headache(s) [facility] Past Medical History Medical History Unspecified disorder of ear Vertigo Seizure Seizure Frequency of micturition Testicular pain Skin cyst Stroke Lipoma of abdominal wall History of carpal tunnel syndrome BERNARD positive Inguinal hernia, bilateral BPH (benign prostatic hyperplasia) Brain tumor Hypercholesterolemia Obstructive sleep apnea Vitamin D deficiency Obesity (BMI 30-39.9) Vitamin B12 deficiency GERD (gastroesophageal reflux disease) Grand mal seizure disorder Erectile dysfunction Osteoarthritis COPD (chronic obstructive pulmonary disease) Tennis elbow Calcaneal spur, right RLS (restless legs syndrome) Pulmonary nodule Insomnia Essential hypertension Diabetes mellitus with hyperglycemia Migraine Surgical History Hx of carpal tunnel repair History of diverticulosis Hx of colonoscopy History of elbow surgery Hx of foot surgery Hx of brain surgery History of partial gastrectomy History of right inguinal hernia repair Hx of prostate biopsy Family History Family History Father Diabetes Throat cancer Heart disease Mother Ovarian cancer Social History Social History Household Members: Spouse Housing: Apartment Are you a primary workforce investment act career manager to a significant other at home: No Do you presently have visiting nurse or other home services: Yes ([facility]) Alcohol intake: never Patient Tobacco Use Status: Never used Tobacco e-Cigarette/Vaping Use: Never Used Second Hand Smoke Exposure: No Advance Directives: Yes Advance Directives on File: Yes Advance Directives Date on File: 06/13/21 service: No Current occupational status: retired Current occupation: rt handed Cognitive needs: No Hearing needs: No Vision needs: No Physical Exam ED Vital Signs: Vital Signs - 24 hr 04/08/24 20:24 04/08/24 23:42 Temperature 98.6 F Pulse Rate 98 70 Respiratory Rate 16 20 Blood Pressure 138/93 H 146/79 H Pulse Oximetry 99 99 Oxygen Delivery Method Room Air Room Air BMI result Body Mass Index 31.0 Const General: healthy appearing, comfortable, no acute distress, alert and awake Nutritional Appearance: well nourished Orientation/consciousness: patient oriented x3 HENMT Head: Yes normocephalic and Yes atraumatic Throat: Yes posterior oropharynx normal Eyes Eyelids: Yes eyelids normal Conjunctivae: conjunctivae normal Sclerae: sclerae normal Corneas: corneas normal Pupils: Equal, round and reactive pupils present EOM: EOMs intact bilaterally Neck Neck: Yes full ROM, No anterior neck swelling, No positive Brudzinski's sign and No positive Kernig's sign Resp Effort & Inspection: normal respiratory effort, able to speak in complete sentences, no audible wheezes and not labored Auscultation: clear to auscultation bilaterally Skin Other: Patient has several scattered macular type rash to the left forearm. There are overlying excoriation kovacs, but no beefy red erythema. There was no obvious weeping, no overlying edema General skin exam: elasticity normal Neuro General: patient oriented x3 Cranial nerves: Yes Equal, round and reactive pupils present and Yes Bilaterally intact EOM present Cognition (Neuro): normal cognition Extrem Other: Moving all extremities well without any obvious deformities Course Course Course Narrative: This is a Rapid Medical Examination (RME) performed by Harman Andre PA-C in triage. Full HPI, ROS, assessment and treatment plan per primary provider in the Main ED. 74 yo male her for eval of pruritic rash to left forearm/ wrist x4 days. reports seeing a mosquito bite him in that area. now admits to subjective fever and headache since yesterday. patient adamant that he has not come into contact with any plants. has not done yard work. denies pain to the arm prior to onset of rash. + pustular erythematous rash in linear distribution noted to ulnar aspect of of left forearm/wrist. Plan: basic labs, viral serology Medical Decision Making Medical Decision Making MDM Narrative: 74-year-old male presents for evaluation of a mild rash to his left forearm, is consistent with a local dermatitis. He has no respiratory symptoms or other viral symptoms. He reports fevers yesterday but is afebrile today. He endorses a continued headache. He has no meningeal signs. The patient is alert and oriented, there was no confusion. He has no leukocytosis, he has a chronic baseline normocytic anemia. No significant left shift chemistries without any significant abnormality. Patient's viral swabs were negative. Symptoms are consistent with a mild dermatitis, he will treat symptomatically with antihistamine. Return precautions given Differential Diagnosis Differential Diagnoses: The differential diagnosis associated with the presentation includes Acute viral syndrome Dermatitis Insect bite [place] virus less likely Lab Data 04/08/24 20:45 04/08/24 20:45 Labs: Lab Results 04/08/24 Range/Units 20:45 WBC 7.1 (4.8-10.8) X10*3/uL RBC 4.10 L (4.60-5.80) X10*6/uL Hgb 11.9 L (14.0-18.0) g/dl Hct 35.6 L (42.0-52.0) % MCV 86.8 (80.0-98.0) fL MCH 29.0 (27.0-33.0) pg MCHC 33.4 (31.0-36.0) g/dl RDW 14.3 (11.0-16.0) % Plt Count 263 (160-400) X10*3/uL MPV 8.9 L (9.4-12.4) fL Immature Gran % (Auto) 0.3 (0.0-0.4) % Neut % (Auto) 58.0 (45-73) % Lymph % (Auto) 28.7 (20-40) % [place] % (Auto) 6.9 (2-11) % Eos % (Auto) 5.8 H (0-4) % Baso % (Auto) 0.3 (0-2) % Lymph # (Auto) 2.0 (1.2-4.9) X10*3/uL [place] # (Auto) 0.5 (0.1-1.2) X10*3/uL Eos # (Auto) 0.4 (0.0-0.4) X10*3/uL Baso # (Auto) 0.0 (0.0-0.2) X10*3/uL Abs Immat Gran (auto) 0.02 (0.00-0.03) X10*3/uL Absolute Neuts (auto) 4.1 (2.0-8.3) x10*3/uL Absolute Nucleated RBC 0.000 (0.0-0.012) X10*3/uL Nucleated RBC % (auto) 0.0 (0.0-0.2) /100WBC Sodium 136 (135-145) mmol/L Potassium 4.1 (3.3-5.1) mmol/L Chloride 105 (96-108) mmol/L Carbon Dioxide 22 (22-29) mmol/L Anion Gap 13 (12-20) BUN 6 L (9-16) mg/dL Creatinine 0.98 (0.5-1.4) mg/dL Estim Creat Clear Calc 65.8 Estimated GFR > 60 Random Glucose 188 H (60-115) mg/dL Calcium 8.9 (8.4-10.2) mg/dL Total Bilirubin 0.4 (0.0-1.0) mg/dL AST 17 (5-37) U/L ALT 14 (0-40) U/L Alkaline Phosphatase 101 (39-117) U/L Total Protein 6.8 (6.5-8.0) g/dL Albumin 3.8 (3.5-5.0) g/dL Influenza Type A (PCR) NEGATIVE (Negative) Influenza Type B (PCR) NEGATIVE (Negative) RSV RNA Qual (PCR) NEGATIVE (Negative) SARS-CoV-2 RNA (RT-PCR) NEGATIVE (Negative) Discharge Plan Discharge Clinical Impression: Dermatitis Patient Disposition: Home, Self-Care Instructions: Dermatitis (ED) Additional Instructions: You may treat your rash with an antihistamine such as Benadryl or an [id number] anti-itch rash. It does not appear to be any concerning rash or infection It should resolve on its own within a few days Follow-up with your primary doctor, return for new or worsening symptoms Prescriptions: No Action (DME) lancets [OneTouch UltraSoft 2 Lancet] 30 gauge misc See Rx Instructions .Route Qty: 100 5RF Rx Instructions: As directed albuterol sulfate [Ventolin HFA] 90 mcg/actuation HFA aerosol inhaler 2 puff PO Q4-6H PRN (Reason: for wheezing) Qty: 18 0RF montelukast [Singulair] 10 mg tablet 10 mg PO BEDTIME 90 Days Qty: 90 1RF atorvastatin 40 mg tablet 40 mg PO BEDTIME Qty: 90 3RF cholecalciferol (vitamin D3) 50 mcg (2,000 unit) capsule 2,000 unit PO DAILY Qty: 90 2RF metformin 1,000 mg tablet 1,000 mg PO BID 90 Days Qty: 180 2RF fluticasone furoate-vilanterol [Breo Ellipta] 200-25 mcg/dose blister with device 1 inh inhalation DAILY Qty: 60 2RF aspirin 81 mg tablet,delayed release (DR/EC) 81 mg PO DAILY Qty: 90 3RF lisinopril 2.5 mg tablet 2.5 mg PO DAILY 90 Days Qty: 90 3RF levetiracetam [Keppra] 500 mg tablet 500 mg PO Q12H Qty: 60 5RF meclizine 25 mg tablet 25 mg PO TID PRN (Reason: dizziness) Qty: 60 8RF amitriptyline 25 mg tablet 25 mg PO BEDTIME Qty: 90 1RF (DME) FreeStyle Precision Mike Strips Strip See Rx Instructions .Route Qty: 50 3RF Rx Instructions: Once daily as needed to check blood glucose when CGM reads high or low lidocaine 5 % adhesive patch,medicated 1 patch topical DAILY Qty: 30 0RF Rx Instructions: leave on most painful area for up to 12 hrs acetaminophen [Tylenol] 325 mg capsule 650 mg PO Q6H PRN (Reason: pain) Qty: 30 0RF (DME) Compact Compressor Nebulizer Misc See Rx Instructions .Route Qty: 1 0RF Rx Instructions: As directed (DME) nebulizer accessories Kit See Rx Instructions .Route Qty: 1 0RF Rx Instructions: As directed gabapentin 300 mg capsule 300 mg PO BID Qty: 180 1RF omeprazole 20 mg capsule,delayed release(DR/EC) 20 mg PO DAILY 90 Days Qty: 90 1RF (DME) pen needle, diabetic [BD Ultra-Fine Mini Pen Needle] 31 gauge x 3/16 needle See Rx Instructions .Route Qty: 100 3RF Rx Instructions: As directed Inject LAntus 10 u QD sertraline 100 mg tablet 100 mg PO DAILY Ozempic 1 mg/dose (4 mg/3 mL) pen injector 1 mg subcut QWEEK Qty: 9 3RF Lantus Solostar U-100 Insulin 100 unit/mL (3 mL) insulin pen 16 unit subcut DAILY (DME) FreeStyle Scott 3 Denhoff Misc See Rx Instructions .Route Qty: 1 0RF Rx Instructions: As directed (DME) FreeStyle Scott 3 Sensor Device See Rx Instructions .Route Qty: 9 5RF Rx Instructions: As directed change every 14 days levetiracetam 750 mg tablet 750 mg PO BID Qty: 60 6RF Print Language: Lao
[2024-04-08 20:49] LABS: MANUAL DIFF FLAG NO
[2024-04-08 20:56] LABS: Basophils Percent Auto 0.3 % (0-2); Eosinophils Absolute Auto 0.4 X10*3/uL (0.0-0.4); Eosinophils Percent Auto 5.8 % (0-4); Hematocrit 35.6 % (42.0-52.0); Hemoglobin 11.9 g/dl (14.0-18.0); Imm Gran Abs Auto 0.02 X10*3/uL (0.00-0.03); Imm Gran Pct Auto 0.3 % (0.0-0.4); Lymphocytes Percent Auto 28.7 % (20-40); Mean Corpuscular HGB Conc 33.4 g/dl (31.0-36.0); Mean Corpuscular Volume 86.8 fL (80.0-98.0); Mean Platelet Volume 8.9 fL (9.4-12.4); Monocytes Absolute Auto 0.5 X10*3/uL (0.1-1.2); Monocytes Percent Auto 6.9 % (2-11); Neutrophils Absolute Auto 4.1 x10*3/uL (2.0-8.3); Platelet Count 263 X10*3/uL (160-400); Red Cell Distribution Width 14.3 % (11.0-16.0); White Blood Count 7.1 X10*3/uL (4.8-10.8)
[2024-04-08 21:06] LABS: Alanine Aminotransferase 14 U/L (0-40); Albumin Level 3.8 g/dL (3.5-5.0); Alkaline Phosphatase 101 U/L (39-117); Anion Gap 13 (12-20); Aspartate Amino Transferase 17 U/L (5-37); Bilirubin Total 0.4 mg/dL (0.0-1.0); Blood Urea Nitrogen 6 mg/dL (9-16); Calcium 8.9 mg/dL (8.4-10.2); Carbon Dioxide 22 mmol/L (22-29); Chloride 105 mmol/L (96-108); Creatinine Clr Calc Pharmacy 65.8; Estimated Glomerular Filt Rate > 60; Glucose Random 188 mg/dL (60-115); Potassium 4.1 mmol/L (3.3-5.1); Sodium 136 mmol/L (135-145); Total Protein 6.8 g/dL (6.5-8.0)
[2024-04-08 21:29] LABS: Influenza A PCR NEGATIVE (Negative); Influenza B PCR NEGATIVE (Negative); Resp Syncy Virus RNA Qual PCR NEGATIVE (Negative); SARS COV2 PCR INHOUSE NEGATIVE (Negative)
[2024-04-08 23:42] VITALS: BP 146/79; PULSE 70; RESP 20; O2SAT 99
[2024-04-09 00:33] VITALS: BP 146/79; PULSE 70; RESP 20; TEMP 36.6; O2SAT 99
== END 2024-04-09 | disposition home or self-care (01) ==
PROVIDERS: Physician Assistant Medical; Emergency Provider Emergency Medicine Emergency Medical Services; PCP Internal Medicine
DX: L30.9 Dermatitis, unspecified (principal); R21 Rash and other nonspecific skin eruption; Z03.818 Encounter for observation for suspected exposure to other biological agents ruled out; E11.9 Type 2 diabetes mellitus without complications; I10 Essential (primary) hypertension; E78.00 Pure hypercholesterolemia, unspecified; J45.909 Unspecified asthma, uncomplicated; Z79.02 Long term (current) use of antithrombotics/antiplatelets; Z79.899 Other long term (current) drug therapy; Z79.4 Long term (current) use of insulin
CPT/HCPCS: 0241U; 80053; 85025; 99283; 99284

== ENCOUNTER 2024-04-21 10:57 | Observation (INO) | payer OTHER, SELFPAY ==
[2024-04-21] VITALS (11 sets, daily range): BP systolic 90–165; BP diastolic 50–82; PULSE 69–94; RESP 11–22; TEMP 36.2–36.7; O2SAT 97–99; BMI 28.3
--- NOTE | ~2024-04-21 | MR_ITS ---
EXAMINATION: MR BRAIN WITHOUT CONTRAST CLINICAL INFORMATION: Possible CVA COMPARISON: CT head April 21, 2024 and MRI brain June 13, 2021 TECHNIQUE: MRI of the brain was obtained using routine sequences without contrast. FINDINGS: Stable changes following left frontal craniotomy with subjacent left frontal lobe encephalomalacia/gliosis and patchy hemosiderin staining. Additional mild encephalomalacia/gliosis within the anteroinferior frontal lobes bilaterally again seen. No acute infarct. No acute intracranial hemorrhage or extra-axial fluid collection. Mild global cerebral volume loss. Slight interval increase in caliber of the ventricular system since June 13, 2021 suggestive of interval volume loss. Stable mild patchy T2 FLAIR hyperintensities throughout the subcortical and periventricular white matter which are nonspecific but likely reflect mild chronic microangiopathy. Redemonstrated chronic encephalomalacia/gliosis in the inferior left cerebellum, presumably from a left PICA territory infarct. Additional chronic lacunar infarct in the right cerebellum again noted. No mass lesion, mass effect, or herniation pattern. Normal intracranial arterial and dural venous sinus flow voids. Partially empty sella. Lens replacements. Moderate patchy paranasal sinus mucosal disease. No mastoid effusion. Normal marrow signal. Partially imaged cervical spondylosis. MR/MR head/brain wo con IMPRESSION: 1. No acute intracranial findings. 2. Stable changes following left frontal craniotomy with subjacent left frontal lobe encephalomalacia/gliosis and patchy hemosiderin staining. Additional mild encephalomalacia/gliosis within the anteroinferior frontal lobes bilaterally again seen. 3. Mild global cerebral volume loss. Slight interval increase in caliber of the ventricular system since June 13, 2021 suggestive of interval volume loss. Stable mild chronic microangiopathy. Redemonstrated chronic encephalomalacia/gliosis in the inferior left cerebellum, presumably from a left PICA territory infarct, and chronic lacunar infarct in the right cerebellum. Electronically signed by: Nona Knowles MD 04/21/2024 06:21 PM EDT
--- NOTE | ~2024-04-21 | CT_ITS ---
EXAMINATION: CT HEAD WITHOUT CONTRAST CLINICAL INFORMATION: Fall weakness COMPARISON: CT head from 08/05/2023 TECHNIQUE: Contiguous axial imaging was performed from the skull base to vertex without intravenous administration of contrast. This CT examination was performed using dose optimization techniques as appropriate, variously including the following: *Automated exposure control *Adjustment of mA and/or kV according to patient size (this includes techniques or standardized protocols for targeted exams where dose is matched to indication/reason for exam; i.e. extremities or head) *Use of iterative reconstruction technique DLP: 715.71 mGy-cm FINDINGS: Postsurgical changes status post left frontal craniotomy with left frontal encephalomalacia. There is no evidence of acute intracranial hemorrhage or territorial infarction. No abnormal mass effect or midline shift is seen. Bach to white matter differentiation is well preserved. No extra-axial fluid collections are identified. The ventricles are normal in size. There is no abnormal attenuation within the brain parenchyma. The osseous structures and soft tissues are normal. The periosteal thickening of the bilateral maxillary sinuses, left greater than right. The mastoid air cells and visualized portions of the paranasal sinuses are well aerated. CT/CT cervical spine wo IV con IMPRESSION: 1. No acute intracranial pathology. 2. Postsurgical changes status post left frontal craniotomy with left frontal encephalomalacia. EXAMINATION: Noncontrast CT scan of the cervical spine. INDICATION: Fall COMPARISON: CT cervical spine from 08/05/2023 TECHNIQUE: Helical, multidetector axial images were obtained from the occiput to the upper thorax. Coronal and sagittal reformats of the cervical spine were provided for interpretation. DLP: 395.74 mGy-cm FINDINGS: No acute fractures or dislocations of the cervical spine are seen. Multilevel degenerative changes. Very slight grade 1 anterolisthesis of C3 on C4 and C4 on C5. Anatomic alignment and positioning of the vertebral bodies and posterior elements is noted. The atlantoaxial joint and craniovertebral articulations are normal without evidence of subluxation. There is no prevertebral soft tissue swelling. The thyroid gland and visualized portions of the lung apices and mediastinum are unremarkable. IMPRESSION: 1. No acute visible fracture or dislocation. 2. Multilevel degenerative changes. 3. Very slight grade 1 anterolisthesis of C3 on C4 and C4 on C5 Electronically signed by: Marilee Lopes MD 04/21/2024 03:12 PM EDT RP
--- NOTE | ~2024-04-21 | CT_ITS ---
EXAMINATION: CT CHEST WITHOUT CONTRAST CLINICAL INFORMATION: Question of pneumonia COMPARISON: Chest x-ray from the same day TECHNIQUE: Multidetector volumetric CT imaging of the chest was done. Axial MIP volume rendering provided. Sagittal and coronal reformatted images were obtained. This CT examination was performed using dose optimization techniques as appropriate, variously including the following: *Automated exposure control *Adjustment of mA and/or kV according to patient size (this includes techniques or standardized protocols for targeted exams where dose is matched to indication/reason for exam; i.e. extremities or head) *Use of iterative reconstruction technique DLP: 281 mGy-cm FINDINGS: LUNGS: There are minimal ill-defined opacities in the basilar most lower lobes more suggestive of trace atelectasis or scarring. No focal consolidation bilaterally to suggest pneumonia. There are a few tiny subpleural and peripheral nodular foci bilaterally such as in the left lower lobe on image 340/534, right lower lobe measuring 3 mm on image 307, and right lower lobe measuring 3 mm on image 253. Nodular focus along the right minor fissure is more suggestive of a lymph node. MEDIASTINUM: Visualized thyroid gland is unremarkable. There are subcentimeter mediastinal lymph nodes within the range of normal variation. Cardiac size is within normal limits; no pericardial effusion. CORONARY ARTERY CALCIFICATION: Present PLEURA: No pneumothorax or pleural effusion. AXILLA: No lymphadenopathy. UPPER ABDOMEN: Extensive fatty atrophy of the pancreas. OSSEOUS STRUCTURES: Degenerative changes are noted in the spine. CT/CT chest wo IV con IMPRESSION: 1. No focal consolidation to suggest pneumonia. 2. Minimal ill-defined opacities in the basilar most lower lobes more suggestive of trace atelectasis or scarring. 3. Few tiny subpleural and peripheral nodular foci bilaterally, nonspecific. According to the UPDATED 2017 Fleischner Society recommendations, the advised follow-up imaging for solid nodules < 6 mm is: LOW RISK PATIENT: No routine follow-up. HIGH RISK PATIENT: Optional CT at 12 months. Electronically signed by: Aram Lizarraga MD 04/21/2024 11:18 PM EDT
--- NOTE | ~2024-04-21 | XR_ITS ---
EXAMINATION: XR CHEST CLINICAL INFORMATION: Weakness COMPARISON: Chest radiograph from 11/27/2022 TECHNIQUE: Frontal view of the chest was obtained. FINDINGS: Subtle left basilar radiopacity may reflect atelectasis versus evolving infectious/inflammatory etiology. No pneumothorax. Trachea is midline. Cardiomediastinal silhouette is nonenlarged. No large pleural effusion. Osseous structures are intact. Soft tissues are unremarkable. XR/XR chest 1V IMPRESSION: Subtle left basilar radiopacity may reflect atelectasis versus evolving infectious/inflammatory etiology. Electronically signed by: Marilee Lopes MD 04/21/2024 01:59 PM EDT RP
--- NOTE | 2024-04-21 11:02 | ECG_ITS ---
Test Reason : HYPOTENSION Blood Pressure : / mmHG Vent. Rate : 084 BPM Atrial Rate : 084 BPM P-R Int : 146 ms QRS Dur : 080 ms QT Int : 396 ms P-R-T Axes : 000 156 134 degrees QTc Int : 467 ms Poor data quality, interpretation may be adversely affected Normal sinus rhythm Right axis deviation Septal infarct , age undetermined Abnormal ECG When compared with ECG of 05-AUG-2023 14:38, QRS axis Shifted right Septal infarct is now Present T wave inversion now evident in Lateral leads Referred By: Tawnya Sosa Electronically Signed By:
[2024-04-21 11:09] LABS: Glucose, Whole Blood 139 mg/dL (60-115)
--- NOTE | 2024-04-21 11:12 | ED.WEAKNESS ---
HPI - Weakness General Chief complaint: Weakness Stated complaint: AMS,LOW BP 91/51,CLAMMY,NARCAN GIVEN PER EMS Time Seen by Provider: 04/21/24 10:58 Source: patient, EMS, RN notes reviewed and old records reviewed Mode of arrival: EMS Limitations: no limitations History of Present Illness ED Provider: Danisha Sosa PA-C HPI Narrative: 74-year-old French-speaking male with a history of anemia, asthma, diabetes, low back pain, depression, seizure, vertigo, hx CVA, hx brain tumor s/p resection in 1989 who presents to the ER from home via EMS for evaluation of generalized weakness, dizziness and a witnessed fall at home this morning. Patient states he woke up feeling unwell this morning, his daughter brought him to the store where he developed diffuse diaphoresis and generalized weakness. He started to feel worse so she brought him home. He was lying down in bed, and when he went to get up to go to the bathroom felt extremely lightheaded like he was going to pass out, and he fell to the floor. Family witnessed the event. He does not sure if he hit his head but denies losing consciousness. He is not on anticoagulation. Patient states he had a similar episode last night but did not fall. He felt like he was going to pass out and felt extremely dizzy, symptoms are worse with position changes and movement. He denies any associated chest pain, nausea, vomiting, diarrhea, abdominal pain, back pain, headache. He does report some shortness of breath and neck pain. He denies any fever or chills, no urinary symptoms. He reports history of intermittent dizziness in the past however this feels different. On EMS arrival patient was hypotensive 91/31, diaphoretic, cool and clammy. He had pinpoint pupils when given 2 of Narcan with some improvement in his mentation. Patient denies any alcohol or drug use. He is not on any narcotics. He denies any pain on arrival to the ER, main complaint is generalized weakness and ongoing dizziness. MD Complaint: generalized weakness Onset (ago): day(s) (1) Duration: progressively worsening Location: generalized Migration: none Severity: severe Relieving factors: rest Exacerbating factors: movement and exertion Context: history of similar Associated symptoms: diaphoresis, loss of appetite and other (Presyncope) Related Data Home Medications ?Medication ?Instructions ?Recorded ?Confirmed insulin glargine 100 unit/mL (3 16 unit subcut DAILY 03/31/24 03/31/24 mL) subcutaneous pen (Lantus Solostar U-100 Insulin) sertraline 100 mg tablet 100 mg PO DAILY 03/31/24 03/31/24 Previous Rx's ?Medication ?Instructions ?Recorded nebulizer accessories #1 ea 07/09/21 nebulizers (Compact Compressor #1 ea 07/09/21 Nebulizer) lancets 30 gauge (OneTouch #100 ea 01/14/23 UltraSoft 2 Lancet) albuterol sulfate 90 mcg/actuation 2 puff PO Q4-6H PRN for wheezing 01/20/23 aerosol inhaler (Ventolin HFA) #18 grams acetaminophen 325 mg capsule 650 mg (2 x 325 mg) PO Q6H PRN 02/04/23 (Tylenol) pain #30 caps pen needle, diabetic 31 gauge x #100 ea 03/13/23 3/16 (BD Ultra-Fine Mini Pen Needle) montelukast 10 mg tablet 10 mg PO BEDTIME 90 days #90 tabs 06/03/23 (Singulair) lidocaine 5 % topical patch 1 patch topical DAILY #30 ea 09/01/23 gabapentin 300 mg capsule 300 mg PO BID #180 caps 09/23/23 atorvastatin 40 mg tablet 40 mg PO BEDTIME #90 tabs 11/03/23 cholecalciferol (vitamin D3) 50 2,000 unit PO DAILY #90 caps 11/03/23 mcg (2,000 unit) capsule metformin 1,000 mg tablet 1,000 mg PO BID 90 days #180 tabs 11/03/23 fluticasone furoate 200 1 inh inhalation DAILY #60 ea 01/11/24 mcg-vilanterol 25 mcg/dose inhalation powder (Breo Ellipta) levetiracetam 750 mg tablet 750 mg PO BID #60 tabs 01/11/24 aspirin 81 mg tablet,delayed 81 mg PO DAILY #90 tabs 01/13/24 release lisinopril 2.5 mg tablet 2.5 mg PO DAILY 90 days #90 tabs 01/13/24 levetiracetam 500 mg tablet 500 mg PO Q12H #60 tabs 01/14/24 (Keppra) meclizine 25 mg tablet 25 mg PO TID PRN dizziness #60 tabs 01/14/24 amitriptyline 25 mg tablet 25 mg PO BEDTIME #90 tabs 03/27/24 FreeStyle Scott 3 [place] #1 ea 03/31/24 (blood-glucose meter,continuous) FreeStyle Scott 3 Sensor #9 ea 03/31/24 (blood-glucose sensor) semaglutide 1 mg/dose (4 mg/3 mL) 1 mg (0.75 mL) subcut QWEEK #9 mL 03/31/24 subcutaneous pen injector (Ozempic) FreeStyle Precision Mike Strips #50 ea 04/05/24 (blood sugar diagnostic) omeprazole 20 mg capsule,delayed 20 mg PO DAILY 90 days #90 caps 04/10/24 release Grab bars for bathroom #2 ea 04/14/24 adult pull ups #100 ea 04/14/24 bed rails #2 ea 04/14/24 hand held shower #1 ea 04/14/24 shower chair #1 ea 04/14/24 shower bench with back #1 ea 04/14/24 Allergies Allergy/AdvReac Type Severity Reaction Status Date / Time aspirin [ASPIRIN] Allergy Intermediate RASH WITH Verified 04/21/24 11:06 HIGH DOSES Penicillins Allergy Mild HIVES Verified 04/21/24 11:06 phenytoin [From Dilantin] Allergy Mild BURNING Verified 04/21/24 11:06 SENSATION IN BODY butalbital [BUTALBITAL] Allergy Unknown HIVES Verified 04/21/24 11:06 thimerosal [THIMEROSAL] Allergy Unknown UNKNOWN Verified 04/21/24 11:06 doxycycline AdvReac Intermediate penile Verified 04/21/24 11:06 rash? [place] Allergy Unknown Unknown Uncoded 04/21/24 11:06 MOTRIN Allergy Unknown hives Uncoded 04/21/24 11:06 Review of Systems Review of Systems: Yes all other systems are reviewed and are negative PMFSH Past Medical History Medical History Unspecified disorder of ear Vertigo Seizure Seizure Frequency of micturition Testicular pain Skin cyst Stroke Lipoma of abdominal wall History of carpal tunnel syndrome BERNARD positive Inguinal hernia, bilateral BPH (benign prostatic hyperplasia) Brain tumor Hypercholesterolemia Obstructive sleep apnea Vitamin D deficiency Obesity (BMI 30-39.9) Vitamin B12 deficiency GERD (gastroesophageal reflux disease) Grand mal seizure disorder Erectile dysfunction Osteoarthritis COPD (chronic obstructive pulmonary disease) Tennis elbow Calcaneal spur, right RLS (restless legs syndrome) Pulmonary nodule Insomnia Essential hypertension Diabetes mellitus with hyperglycemia Migraine Surgical History Hx of carpal tunnel repair History of diverticulosis Hx of colonoscopy History of elbow surgery Hx of foot surgery Hx of brain surgery History of partial gastrectomy History of right inguinal hernia repair Hx of prostate biopsy Family History Family History Father Diabetes Throat cancer Heart disease Mother Ovarian cancer Social History Social History Household Members: Spouse Housing: Apartment Are you a primary critical care physician assistant to a significant other at home: No Do you presently have visiting nurse or other home services: Yes ([facility]) Alcohol intake: never Patient Tobacco Use Status: Never used Tobacco e-Cigarette/Vaping Use: Never Used Second Hand Smoke Exposure: No Advance Directives Date on File: 06/13/21 service: No Current occupational status: retired Current occupation: rt handed Cognitive needs: No Hearing needs: No Vision needs: No Physical Exam Vital Signs: Vital Signs: Last Vital Signs Temp 97.1 F 04/21/24 11:14 Pulse 87 04/21/24 13:40 Resp 17 04/21/24 13:40 BP 141/81 H 04/21/24 13:40 Pulse Ox 99 04/21/24 13:40 O2 Del Method Room Air 04/21/24 13:40 BMI result Body Mass Index 28.3 Appearance: Elderly male, lying in the stretcher with eyes closed, diaphoretic and pale Oriented X3. No acute distress. Head: normocephalic, atraumatic. Eyes: Pupils equal, round and reactive to light. ENT: Pharynx normal. No tonsillar swelling or exudate. Neck: Normal inspection. Neck supple. CVS: Normal heart rate and rhythm. Pulses normal. Respiratory: No respiratory distress. Breath sounds normal. Abdomen: Well healed longitudinal surgical scar, Soft and nontender. +BS x4 Skin: Skin cool and clammy. Normal skin color. Normal skin turgor. No rashes. Extremities: No lower extremity edema. No joint swelling. Neuro/psych: Oriented X 3. Globally weak, strength is equal and symmetrical throughout. No pronator drift but unable to hold his arms up for prolonged amount of time due to weakness. CN II-XII intact. Normal speech and cognition. Course Reevaluation(s) Reevaluation #1: Upon re-evaluation patient continues to feel globally weak. His pallor and coloring have improved. He still continues have episodes of diaphoresis associated with exertion, he was gotten up to the commode and felt like he was going to pass out again. Orthostatic vital signs have been ordered. His lab work is revealing for stable normocytic anemia, no leukocytosis. Troponin is negative. He was found have an elevated lactic acid 3.2 without any evidence of infection at this time. Patient was afebrile rectally on arrival. He is not tachycardic or hypotensive here. IV fluids have been ordered. Urinalysis is still pending. Repeat troponin ordered. Will continue monitor closely. Will plan to admit for presyncope Time: 13:15 Medications Administered Discontinued Medications Generic Name Dose Route Start Last Admin Trade Name Freq PRN Reason Stop Dose Admin Lactated Ringer's 1,000 mls @ 999 mls/hr 04/21/24 11:15 04/21/24 12:36 Lr IV 04/21/24 12:15 Infused .Q1H1M BECCA Infusion Medical Decision Making Medical Decision Making [facility] Narrative: 74-year-old French-speaking male with a history of anemia, asthma, diabetes, low back pain, depression, seizure, vertigo, hx CVA who presents to the ER from home via EMS for evaluation of generalized weakness, dizziness and a witnessed fall at home this morning. Patient states he felt like he was going to pass out this morning and last night. No history of syncope. No witnessed seizure activity. He arrives to the ER diffusely diaphoretic and pale. Initial blood pressure for EMS was soft 90s over 50s, improved with 500 cc of fluid. Patient arrives afebrile and hemodynamically stable. He denies any chest pain. EKG is nonischemic. Lab workup performed showing a stable mild anemia, negative troponin x2. Orthostatic vital signs were negative. He did have elevated lactic acid but no signs of infection on his workup. Patient continued have episodes of diaphoresis and feeling like he was going to pass out, with cool clammy skin. Unclear etiology. Will plan to admit the patient to the hospital for further evaluation and treatment. Patient and family updated on plan of care and are in agreement for admission to the hospital. Differential Diagnosis Differential Diagnoses: The differential diagnosis associated with the presentation includes Presyncope, syncope, orthostatic hypotension, dehydration, cardiac arrhythmia, ACS, vertigo, stroke Admission/Observation Consideration of admission/observation: Escalation of care including admission/observation considered Consult Healthcare Provider Management of the patient was discussed with: Hospitalist Lab Data MDM Lab Attestation statement: I reviewed the patient's lab results. Stable normocytic anemia, mild hyperglycemia without anion gap, negative troponin x2 04/21/24 11:20 04/21/24 11:20 Labs: Lab Results 04/21/24 04/21/24 04/21/24 Range/Units 11:05 11:20 11:28 WBC 8.0 (4.8-10.8) X10*3/uL RBC 4.08 L (4.60-5.80) X10*6/uL Hgb 12.1 L (14.0-18.0) g/dl Hct 34.4 L (42.0-52.0) % MCV 84.3 (80.0-98.0) fL MCH 29.7 (27.0-33.0) pg MCHC 35.2 (31.0-36.0) g/dl RDW 13.8 (11.0-16.0) % Plt Count 221 (160-400) X10*3/uL MPV 8.5 L (9.4-12.4) fL Immature Gran % (Auto) 0.4 (0.0-0.4) % Neut % (Auto) 70.5 (45-73) % Lymph % (Auto) 19.0 L (20-40) % [place] % (Auto) 5.5 (2-11) % Eos % (Auto) 4.3 H (0-4) % Baso % (Auto) 0.3 (0-2) % Lymph # (Auto) 1.5 (1.2-4.9) X10*3/uL [place] # (Auto) 0.4 (0.1-1.2) X10*3/uL Eos # (Auto) 0.3 (0.0-0.4) X10*3/uL Baso # (Auto) 0.0 (0.0-0.2) X10*3/uL Abs Immat Gran (auto) 0.03 (0.00-0.03) X10*3/uL Absolute Neuts (auto) 5.6 (2.0-8.3) x10*3/uL Absolute Nucleated RBC 0.000 (0.0-0.012) X10*3/uL Nucleated RBC % (auto) 0.0 (0.0-0.2) /100WBC ESR 12 (0-15) MM/HR PT 12.6 (11.1-13.3) SEC INR 1.0 (0.9-1.1) APTT 28.1 (26.0-36.8) SEC VBG pH 7.43 (7.32-7.43) VBG pCO2 28 mmHg VBG pO2 48 mmHg VBG HCO3 19 L (22-26) mmol/L VBG O2 Saturation 83.0 % VBG Base Excess -3.5 mmol/L Sodium 136 (135-145) mmol/L Potassium 4.0 (3.3-5.1) mmol/L Chloride 106 (96-108) mmol/L Carbon Dioxide 18 L (22-29) mmol/L Anion Gap 16 (12-20) BUN 5 L (9-16) mg/dL Creatinine 1.17 (0.5-1.4) mg/dL Estim Creat Clear Calc 58.5 Estimated GFR > 60 POC Glucose 139 H (60-115) mg/dL Random Glucose 160 H (60-115) mg/dL Lactic Acid 3.2 H* (0.5-2.0) mmol/L Lactic Acid F/U @ 2Hr (0.5-2.0) mmol/L Calcium 9.1 (8.4-10.2) mg/dL Magnesium 2.0 (1.6-2.6) mg/dL Total Bilirubin 0.8 (0.0-1.0) mg/dL Direct Bilirubin 0.3 (0.0-0.5) mg/dL AST 21 (5-37) U/L ALT 16 (0-40) U/L Alkaline Phosphatase 112 (39-117) U/L Ammonia 28 (13-55) umol/L Total Creatine Kinase 119 (38-174) U/L Troponin I High Sens < 2.7 (<3.5-35.0) ng/L C-Reactive Protein 0.33 (< or = 0.50) mg/dL B-Natriuretic Peptide 99 (<100) pg/mL Total Protein 7.7 (6.5-8.0) g/dL Albumin 4.2 (3.5-5.0) g/dL Lipase 10 (8-78) U/L TSH 4.88 H (0.32-4.0) uIU/mL Free T4 0.97 (0.71-1.85) ng/dL Ethyl Alcohol < 10 mg/dL Influenza Type A (PCR) NEGATIVE (Negative) Influenza Type B (PCR) NEGATIVE (Negative) RSV RNA Qual (PCR) NEGATIVE (Negative) SARS-CoV-2 RNA (RT-PCR) NEGATIVE (Negative) 04/21/24 Range/Units 14:29 WBC (4.8-10.8) X10*3/uL RBC (4.60-5.80) X10*6/uL Hgb (14.0-18.0) g/dl Hct (42.0-52.0) % MCV (80.0-98.0) fL MCH (27.0-33.0) pg MCHC (31.0-36.0) g/dl RDW (11.0-16.0) % Plt Count (160-400) X10*3/uL MPV (9.4-12.4) fL Immature Gran % (Auto) (0.0-0.4) % Neut % (Auto) (45-73) % Lymph % (Auto) (20-40) % [place] % (Auto) (2-11) % Eos % (Auto) (0-4) % Baso % (Auto) (0-2) % Lymph # (Auto) (1.2-4.9) X10*3/uL [place] # (Auto) (0.1-1.2) X10*3/uL Eos # (Auto) (0.0-0.4) X10*3/uL Baso # (Auto) (0.0-0.2) X10*3/uL Abs Immat Gran (auto) (0.00-0.03) X10*3/uL Absolute Neuts (auto) (2.0-8.3) x10*3/uL Absolute Nucleated RBC (0.0-0.012) X10*3/uL Nucleated RBC % (auto) (0.0-0.2) /100WBC ESR (0-15) MM/HR PT (11.1-13.3) SEC INR (0.9-1.1) APTT (26.0-36.8) SEC VBG pH (7.32-7.43) VBG pCO2 mmHg VBG pO2 mmHg VBG HCO3 (22-26) mmol/L VBG O2 Saturation % VBG Base Excess mmol/L Sodium (135-145) mmol/L Potassium (3.3-5.1) mmol/L Chloride (96-108) mmol/L Carbon Dioxide (22-29) mmol/L Anion Gap (12-20) BUN (9-16) mg/dL Creatinine (0.5-1.4) mg/dL Estim Creat Clear Calc Estimated GFR POC Glucose (60-115) mg/dL Random Glucose (60-115) mg/dL Lactic Acid (0.5-2.0) mmol/L Lactic Acid F/U @ 2Hr 1.3 (0.5-2.0) mmol/L Calcium (8.4-10.2) mg/dL Magnesium (1.6-2.6) mg/dL Total Bilirubin (0.0-1.0) mg/dL Direct Bilirubin (0.0-0.5) mg/dL AST (5-37) U/L ALT (0-40) U/L Alkaline Phosphatase (39-117) U/L Ammonia (13-55) umol/L Total Creatine Kinase (38-174) U/L Troponin I High Sens < 2.7 (<3.5-35.0) ng/L C-Reactive Protein (< or = 0.50) mg/dL B-Natriuretic Peptide (<100) pg/mL Total Protein (6.5-8.0) g/dL Albumin (3.5-5.0) g/dL Lipase (8-78) U/L TSH (0.32-4.0) uIU/mL Free T4 (0.71-1.85) ng/dL Ethyl Alcohol mg/dL Influenza Type A (PCR) (Negative) Influenza Type B (PCR) (Negative) RSV RNA Qual (PCR) (Negative) SARS-CoV-2 RNA (RT-PCR) (Negative) Independent Interpretation I performed an independent interpretation of an: EKG, Plain X-Ray and CT Scan Interpretation: EKG with normal sinus rhythm, ventricular rate 87 beats per minute, normal QTC comfortable QRS, no ST segment elevations or depressions, artifact present CXR without focal infiltrate CT head without any acute bleed or edema Radiology Impression Discussion of test interpretation with radiology: I have reviewed the radiologist's reading. Radiologist Impression: EXAMINATION: XR CHEST CLINICAL INFORMATION: Weakness COMPARISON: Chest radiograph from 11/27/2022 TECHNIQUE: Frontal view of the chest was obtained. FINDINGS: Subtle left basilar radiopacity may reflect atelectasis versus evolving infectious/inflammatory etiology. No pneumothorax. Trachea is midline. Cardiomediastinal silhouette is nonenlarged. No large pleural effusion. Osseous structures are intact. Soft tissues are unremarkable. XR/XR chest 1V IMPRESSION: Subtle left basilar radiopacity may reflect atelectasis versus evolving infectious/inflammatory etiology. CT/CT head/brain wo IV con IMPRESSION: 1. No acute intracranial pathology. 2. Postsurgical changes status post left frontal craniotomy with left frontal encephalomalacia. Independent Historian Clinical information obtained from an independent historian. History obtained from or confirmed by: Spouse and EMS External Record Review External record reviewed: Outpatient record, Prior outpatient labs and Prior outpatient radiology Prescription Management I considered prescription management with: Pain Medication and Antibiotic Chronic Conditions Patient?s care impacted by: Diabetes and Hypertension Critical Care Time Critical Care Time Critical Care Time: Yes Total Critical Care Time: 32 Attestation: I have personally provided critical care time exclusive of time spent on separately billable procedures. Time includes review of lab data, radiology results, discussion with consultants, and monitoring for potential decompensation. Intervention performed as documented. Discharge Plan Discharge Clinical Impression: Pre-syncope Patient Disposition: Admitted As Inpatient Print Language: French
[2024-04-21] MEDS: Lactated Ringers 1,000 ML 999 ML IV (11:13)
[2024-04-21 11:30] LABS: Venous Blood Gas Refer to POC result
--- NOTE | 2024-04-21 11:30 | PC.NURSE ---
Pt comes to ED today via EMS from home for c/o general weakness and ill feeling since last night. Per EMS Pt was hypotensive upon arrival with weakness, and diaphoresis. Two dose of Narcan given IV with some noted increase in alertness and 500ml NS given. 18g in LAC placed by EMS, flushes without complication; 20g R hand placed upon arrival. Blood labs and cultures drawn. EKG completed. VSS, afebrile rectally, Pt is A&Ox3. LR given per OCT.
[2024-04-21 11:31] LABS: VBG Base Excess -3.5 mmol/L; VBG HCO3 19 mmol/L (22-26); VBG pCO2 28 mmHg; VBG pH 7.43 (7.32-7.43); VBG pO2 48 mmHg
[2024-04-21 11:47] LABS: MANUAL DIFF FLAG NO
[2024-04-21 11:48] LABS: Ammonia 28 umol/L (13-55)
[2024-04-21 11:49] LABS: Basophils Percent Auto 0.3 % (0-2); Eosinophils Absolute Auto 0.3 X10*3/uL (0.0-0.4); Eosinophils Percent Auto 4.3 % (0-4); Hematocrit 34.4 % (42.0-52.0); Hemoglobin 12.1 g/dl (14.0-18.0); Imm Gran Abs Auto 0.03 X10*3/uL (0.00-0.03); Imm Gran Pct Auto 0.4 % (0.0-0.4); Lymphocytes Absolute Auto 1.5 X10*3/uL (1.2-4.9); Mean Corpuscular HGB Conc 35.2 g/dl (31.0-36.0); Mean Corpuscular Hemoglobin 29.7 pg (27.0-33.0); Mean Corpuscular Volume 84.3 fL (80.0-98.0); Mean Platelet Volume 8.5 fL (9.4-12.4); Monocytes Absolute Auto 0.4 X10*3/uL (0.1-1.2); Monocytes Percent Auto 5.5 % (2-11); Neutrophils Absolute Auto 5.6 x10*3/uL (2.0-8.3); Neutrophils Percent Auto 70.5 % (45-73); Platelet Count 221 X10*3/uL (160-400); Red Blood Count 4.08 X10*6/uL (4.60-5.80); Red Cell Distribution Width 13.8 % (11.0-16.0)
[2024-04-21 11:51] LABS: Lactic Acid 3.2 mmol/L (0.5-2.0)
[2024-04-21 11:56] LABS: Prothrombin Time 12.6 SEC (11.1-13.3)
[2024-04-21 12:00] LABS: Partial Thromboplastin Time 28.1 SEC (26.0-36.8)
[2024-04-21 12:13] LABS: Troponin-I High Sensitivity < 2.7 ng/L (<3.5-35.0)
[2024-04-21 12:16] LABS: Erythrocyte Sedimentation Rate 12 MM/HR (0-15)
[2024-04-21 12:20] LABS: Alanine Aminotransferase 16 U/L (0-40); Albumin Level 4.2 g/dL (3.5-5.0); Alkaline Phosphatase 112 U/L (39-117); Anion Gap 16 (12-20); Aspartate Amino Transferase 21 U/L (5-37); Bilirubin Direct 0.3 mg/dL (0.0-0.5); Bilirubin Total 0.8 mg/dL (0.0-1.0); Blood Urea Nitrogen 5 mg/dL (9-16); C Reactive Protein 0.33 mg/dL (< or = 0.50); Calcium 9.1 mg/dL (8.4-10.2); Carbon Dioxide 18 mmol/L (22-29); Chloride 106 mmol/L (96-108); Creatinine Clr Calc Pharmacy 58.5; Estimated Glomerular Filt Rate > 60; Ethanol < 10 mg/dL; Glucose Random 160 mg/dL (60-115); Lipase 10 U/L (8-78); Sodium 136 mmol/L (135-145); TSH reflex Free T4 4.88 uIU/mL (0.32-4.0); Total Protein 7.7 g/dL (6.5-8.0)
[2024-04-21 12:23] LABS: B Type Natriuretic Peptide 99 pg/mL (<100)
[2024-04-21 12:25] LABS: Influenza A PCR NEGATIVE (Negative); Influenza B PCR NEGATIVE (Negative); Resp Syncy Virus RNA Qual PCR NEGATIVE (Negative); SARS COV2 PCR INHOUSE NEGATIVE (Negative)
[2024-04-21 12:58] LABS: Free T4 (Free Thyroxine) 0.97 ng/dL (0.71-1.85)
[2024-04-21 13:26] LABS: Reflex Lactate? Lactic Acid Added
[2024-04-21 14:45] LABS: ~Lactic Acid-LAB USE ONLY 1.3 mmol/L (0.5-2.0)
[2024-04-21 15:00] LABS: Troponin-I High Sensitivity < 2.7 ng/L (<3.5-35.0)
--- NOTE | 2024-04-21 15:16 | P.HPHOSP_ITS ---
History of Present Illness Date of Service: 04/21/24 Attending physician on admission: Sina Posada Chief Complaint: Weakness, pre syncope Pt is a 74-year-old primarily Portuguese-speaking male with a PMH significant for?COPD, insulin-dependent type 2 diabetes, HLD, hx of brain tumor s/p craniotomy in 1990, seizure disorder, hx of CVA in 2019, and GERD who presents to the ED from home with multiple complaints, though primarily generalized weakness, dizziness, and diaphoresis since last night. Pt reports has been experiencing intermittent dizziness and weakness for the past few months, worse the past few weeks. Last night patient reports symptoms markedly worsened when he was working on his car and he suddenly felt weak, dizzy as if the room was spinning, and also began sweating. Pt reports it felt like I was going to . Lay down and went to sleep, and awoke this morning with minimal improvement to symptoms. Went to the store with his daughter and symptoms worsened and patient had to go home to lay down again. Called EMS and when he went to get up, had witnessed fall without head strike. Patient was caught by his grandson who carefully lowered him to the floor. EMS noted patient was hypotensive upon arrival, gave 500 cc of IVF on route to the hospital. Denies any significant weight loss, though has not been eating or drinking much lately. Also complains of some SOB and mostly nonproductive cough. Has been having left lower extremity numbness and tingling x2+ weeks. Chest tightness associated with cough. In the ED pt was mildly hypertensive up to 148/76. Orthostatics negative. Labs were significant for stable normocytic anemia of 12.1/34.4, lactic acid 3.2 with repeat 1.3, TSH 4.88 3 T4 WNL at 0.97. No leukocytosis. No significant electrolyte abnormalities. Renal and hepatic function baseline. Serial troponins negative. Initial POC 139. Tested negative for flu, RSV, COVID. CXR showed subtle left basilar radiopacity may reflect atelectasis versus evolving infectious/inflammatory etiology. CT?of head negative acute intracranial pathology, though shows frontal postsurgical changes. CT of cervical spine negative for acute visible fracture or dislocation, of shows multi level degenerative changes and very slight grade 1 anterolisthesis of C3 on C4 and C4 on C5. EKG demonstrated normal sinus without significant ST elevations or depressions, similar to previous. Pt was treated with 1 L IVF. Pt will be admitted to the hospital under observation for treatment and further evaluation of presyncope. Review of Systems 2 Review of Systems: Dizziness Generalized weakness Diaphoresis SOB, primarily nonproductive cough Nausea, no vomiting Left lower extremity numbness and tingling x2 weeks Chest tightness associated with cough PMFSH Medical History Unspecified disorder of ear Vertigo Seizure Seizure Frequency of micturition Testicular pain Skin cyst Stroke Lipoma of abdominal wall History of carpal tunnel syndrome BERNARD positive Inguinal hernia, bilateral BPH (benign prostatic hyperplasia) Brain tumor Hypercholesterolemia Obstructive sleep apnea Vitamin D deficiency Obesity (BMI 30-39.9) Vitamin B12 deficiency GERD (gastroesophageal reflux disease) Grand mal seizure disorder Erectile dysfunction Osteoarthritis COPD (chronic obstructive pulmonary disease) Tennis elbow Calcaneal spur, right RLS (restless legs syndrome) Pulmonary nodule Insomnia Essential hypertension Diabetes mellitus with hyperglycemia Migraine Family History Father Diabetes Throat cancer Heart disease Mother Ovarian cancer Surgical History Hx of carpal tunnel repair History of diverticulosis Hx of colonoscopy History of elbow surgery Hx of foot surgery Hx of brain surgery History of partial gastrectomy History of right inguinal hernia repair Hx of prostate biopsy Social History Household Members: Spouse Housing: Apartment Are you a primary group care worker to a significant other at home: No Do you presently have visiting nurse or other home services: Yes ([facility]) Alcohol intake: never Patient Tobacco Use Status: Never used Tobacco Smoked in Last 30 Days: No e-Cigarette/Vaping Use: Never Used Second Hand Smoke Exposure: No Advance Directives: No Advance Directives Information Provided: Yes Advance Directives Date on File: 06/13/21 Do you have a plan to hurt others: No Plan service: No Current occupational status: retired Current occupation: rt handed Cognitive needs: No Hearing needs: No Vision needs: No Meds Allergies Allergy/AdvReac Type Severity Reaction Status Date / Time aspirin [ASPIRIN] Allergy Intermediate RASH WITH Verified 04/21/24 11:06 HIGH DOSES Penicillins Allergy Mild HIVES Verified 04/21/24 11:06 phenytoin [From Dilantin] Allergy Mild BURNING Verified 04/21/24 11:06 SENSATION IN BODY butalbital [BUTALBITAL] Allergy Unknown HIVES Verified 04/21/24 11:06 thimerosal [THIMEROSAL] Allergy Unknown UNKNOWN Verified 04/21/24 11:06 doxycycline AdvReac Intermediate penile Verified 04/21/24 11:06 rash? [place] Allergy Unknown Unknown Uncoded 04/21/24 11:06 MOTRIN Allergy Unknown hives Uncoded 04/21/24 11:06 Home Medications ?Medication ?Instructions ?Recorded ?Confirmed ?Last Taken ?Type insulin glargine 100 unit/mL (3 16 unit subcut DAILY 03/31/24 03/31/24 Unknown History mL) subcutaneous pen (Lantus Solostar U-100 Insulin) sertraline 100 mg tablet 100 mg PO DAILY 03/31/24 03/31/24 Unknown History Physical Exam 2 Vital Signs and Narrative: Vital Signs: Last Vital Signs Temp 97.1 F 04/21/24 11:14 Pulse 87 04/21/24 13:40 Resp 17 04/21/24 13:40 BP 141/81 H 04/21/24 13:40 Pulse Ox 99 04/21/24 13:40 O2 Del Method Room Air 04/21/24 13:40 BMI result Body Mass Index 28.3 Constitutional: Alert, in no acute distress. Mental Status: Oriented to person, place and time. Eyes: Pupils are equal, round, and reactive to light. Ear, Nose, and Throat: Oropharynx clear, mucous membranes moist. Ears and nose without deformities. Trachea midline. Respiratory: Clear to auscultation bilaterally. No wheezing, rales, or rhonchi. Cardiovascular: S1, S2 regular. No murmurs, rubs, or gallops. Gastrointestinal: Abdomen soft, non-tender, non-distended. Normal bowel sounds. Neurologic: Moves all extremities spontaneously, though with symmetric bilateral lower extremity weakness. Some difficulty tracking with EOM. No nystagmus. Loss of sensation to light touch of right face and upper extremity. Skin: Warm, dry. Extremities: No edema. Psychiatric: Normal mood and affect. Results Labs 04/21/24 11:20 04/21/24 11:20 Labs: Laboratory Results - last 24 hr 09/08/0204/21/24 04/21/24 11:05 11:20 11:28 MCV 84.3 MCH 29.7 MCHC 35.2 RDW 13.8 Plt Count 221 MPV 8.5 L Immature Gran % (Auto) 0.4 Neut % (Auto) 70.5 Lymph % (Auto) 19.0 L Hartley % (Auto) 5.5 Eos % (Auto) 4.3 H Baso % (Auto) 0.3 Lymph # (Auto) 1.5 Hartley # (Auto) 0.4 Eos # (Auto) 0.3 Baso # (Auto) 0.0 Abs Immat Gran (auto) 0.03 Absolute Neuts (auto) 5.6 Absolute Nucleated RBC 0.000 Nucleated RBC % (auto) 0.0 ESR 12 PT 12.6 INR 1.0 APTT 28.1 VBG pH 7.43 VBG pCO2 28 VBG pO2 48 VBG HCO3 19 L VBG O2 Saturation 83.0 VBG Base Excess -3.5 Anion Gap 16 Estim Creat Clear Calc 58.5 Estimated GFR > 60 POC Glucose 139 H Random Glucose 160 H Lactic Acid 3.2 H* Lactic Acid F/U @ 2Hr Calcium 9.1 Magnesium 2.0 Total Bilirubin 0.8 Direct Bilirubin 0.3 AST 21 ALT 16 Alkaline Phosphatase 112 Ammonia 28 Total Creatine Kinase 119 Troponin I High Sens < 2.7 C-Reactive Protein 0.33 B-Natriuretic Peptide 99 Total Protein 7.7 Albumin 4.2 Lipase 10 TSH 4.88 H Free T4 0.97 Ethyl Alcohol < 10 Influenza Type A (PCR) NEGATIVE Influenza Type B (PCR) NEGATIVE RSV RNA Qual (PCR) NEGATIVE SARS-CoV-2 RNA (RT-PCR) NEGATIVE 04/21/24 14:29 MCV MCH MCHC RDW Plt Count MPV Immature Gran % (Auto) Neut % (Auto) Lymph % (Auto) Hartley % (Auto) Eos % (Auto) Baso % (Auto) Lymph # (Auto) Hartley # (Auto) Eos # (Auto) Baso # (Auto) Abs Immat Gran (auto) Absolute Neuts (auto) Absolute Nucleated RBC Nucleated RBC % (auto) ESR PT INR APTT VBG pH VBG pCO2 VBG pO2 VBG HCO3 VBG O2 Saturation VBG Base Excess Anion Gap Estim Creat Clear Calc Estimated GFR POC Glucose Random Glucose Lactic Acid Lactic Acid F/U @ 2Hr 1.3 Calcium Magnesium Total Bilirubin Direct Bilirubin AST ALT Alkaline Phosphatase Ammonia Total Creatine Kinase Troponin I High Sens < 2.7 C-Reactive Protein B-Natriuretic Peptide Total Protein Albumin Lipase TSH Free T4 Ethyl Alcohol Influenza Type A (PCR) Influenza Type B (PCR) RSV RNA Qual (PCR) SARS-CoV-2 RNA (RT-PCR) Imaging Radiologist's Impressions: Impressions Chest X-Ray 04/21/24 11:02 IMPRESSION: Subtle left basilar radiopacity may reflect atelectasis versus evolving infectious/inflammatory etiology. Electronically signed by: Marilee Lopes MD 04/21/2024 01:59 PM EDT RP Cervical Spine CT 04/21/24 11:13 IMPRESSION: 1. No acute intracranial pathology. 2. Postsurgical changes status post left frontal craniotomy with left frontal encephalomalacia. EXAMINATION: Noncontrast CT scan of the cervical spine. INDICATION: Fall COMPARISON: CT cervical spine from 08/05/2023 TECHNIQUE: Helical, multidetector axial images were obtained from the occiput to the upper thorax. Coronal and sagittal reformats of the cervical spine were provided for interpretation. DLP: 395.74 mGy-cm FINDINGS: No acute fractures or dislocations of the cervical spine are seen. Multilevel degenerative changes. Very slight grade 1 anterolisthesis of C3 on C4 and C4 on C5. Anatomic alignment and positioning of the vertebral bodies and posterior elements is noted. The atlantoaxial joint and craniovertebral articulations are normal without evidence of subluxation. There is no prevertebral soft tissue swelling. The thyroid gland and visualized portions of the lung apices and mediastinum are unremarkable. IMPRESSION: 1. No acute visible fracture or dislocation. 2. Multilevel degenerative changes. 3. Very slight grade 1 anterolisthesis of C3 on C4 and C4 on C5 Electronically signed by: Marilee Lopes MD 04/21/2024 03:12 PM EDT RP Head CT 04/21/24 12:34 IMPRESSION: 1. No acute intracranial pathology. 2. Postsurgical changes status post left frontal craniotomy with left frontal encephalomalacia. EXAMINATION: Noncontrast CT scan of the cervical spine. INDICATION: Fall COMPARISON: CT cervical spine from 08/05/2023 TECHNIQUE: Helical, multidetector axial images were obtained from the occiput to the upper thorax. Coronal and sagittal reformats of the cervical spine were provided for interpretation. DLP: 395.74 mGy-cm FINDINGS: No acute fractures or dislocations of the cervical spine are seen. Multilevel degenerative changes. Very slight grade 1 anterolisthesis of C3 on C4 and C4 on C5. Anatomic alignment and positioning of the vertebral bodies and posterior elements is noted. The atlantoaxial joint and craniovertebral articulations are normal without evidence of subluxation. There is no prevertebral soft tissue swelling. The thyroid gland and visualized portions of the lung apices and mediastinum are unremarkable. IMPRESSION: 1. No acute visible fracture or dislocation. 2. Multilevel degenerative changes. 3. Very slight grade 1 anterolisthesis of C3 on C4 and C4 on C5 Electronically signed by: Marilee Lopes MD 04/21/2024 03:12 PM EDT RP Assessment and Plan (1) Pre-syncope: Status: Acute Plan Pt is a 74-year-old primarily Portuguese-speaking male with a PMH significant for?COPD, insulin-dependent type 2 diabetes, HLD, hx of brain tumor s/p craniotomy in 1990, seizure disorder, hx of CVA in 2019, and GERD who presents to the ED from home with multiple complaints, though primarily generalized weakness, dizziness, and diaphoresis since last night. Pt will be admitted to the hospital under observation for treatment and further evaluation of presyncope. Pre-syncope Dizziness, lightheadedness, weakness, and diaphoresis x2-3 months, worse last night Pt also complaining of intermittent right leg numbness, tingling, and pain x2+ weeks EMS report pt was hypotensive at time of arrival, gave 500 mls of IVF en route to ED Received 1L IVF in ED Orthostatics negative MRI of head/brain to r/o posterior stroke Meclizine 25 mg p.o. t.i.d. Monitor on telemetry PT consult Question of pneumonia Pt with worsening cough, SOB, weakness, dizziness x2 weeks CXR with subtle left basilar radiopacity suggestive of atelectasis versus evolving infectious/inflammatory etiology Will empirically treat with ceftriaxone and azithromycin, started 04/21/2024 Pt does not meet sepsis criteria: No fever, tachypnea, or leukocytosis Will get CT of chest to better evaluate for possible pneumonia Follow blood cultures Lactic acidosis, resolved Initial lactic acid 3.2 with repeat 1.3 after fluids Secondary to metformin use, not sepsis COPD Not in acute exacerbation Continue home inhalers HTN Continue lisinopril HLD/hx of CVA Continue aspirin, statin Insulin dependent type 2 diabetes Hold metformin SSI, Lantus Diabetic diet Seizure disorder Continue Keppra GERD PPI Full Code Attending:?Dr. Posada DVT Prophylaxis: Lovenox Patient will be admitted to the hospital under observation for treatment and further evaluation of generalized weakness, dizziness, and diaphoresis in the setting of pre syncope and question of pneumonia. The patient will undergo additional imaging to evaluate for possible pneumonia and to rule out CVA. Patient will also undergo close cardiac monitoring. Quality Stroke Does the patient have a stroke diagnosis?: No VTE Prior VTE?: No VTE Risk Level:: Medical - moderate - high VTE Device Contraindication: Treatment Not Indicated VTE Drug Contraindication: N/A - Med Ordered
--- NOTE | 2024-04-21 15:19 | PC.NURSE ---
ED Provider approves Pt for food. Pt given foods selected from the ED fridge. Will order Pt a tray once Pt is on admission status. Pt requests to bring hime [facility] or [facility] Woodward, this was discouraged at this time, demonstrates understanding.
[2024-04-21] MEDS: Enoxaparin Sodium 40 MG/0.4 ML SYRINGE SUBCUT (16:58)
[2024-04-21] MEDS: Meclizine HCl 25 MG TABLET PO ×2 (16:58→21:57)
[2024-04-21] MEDS: cefTRIAXone sodium 1 GM in 0.9 % Sodium Chloride 50 ML IV (16:58)
--- NOTE | 2024-04-21 17:15 | PC.NURSE ---
Pt transported to MRI for imaging.
[2024-04-21 17:17] LABS: Appearance Urine Clear; Color Urine Yellow; Glucose Urine UA 100 mg/dL (Negative); Leukocyte Esterase Urine Negative (Negative); Nitrite Urine Negative (Negative); Specific Gravity - Urine <= 1.005 (1.005-1.025); Urine Blood Negative (Negative); Urine Ketones Negative (Negative); Urine Protein Negative (Neg-Trace)
[2024-04-21 17:33] LABS: Amphetamine Screen Urine Not Detected (Not Detect); Barbiturates, Urine Not Detected (Not Detect); Benzodiazepines Screen Urine Not Detected (Not Detect); Buprenorphine Scr Not Detected (Not Detect); Cannabinoid Screen Urine Not Detected (Not Detect); Cocaine Screen Urine Not Detected (Not Detect); Fentanyl, urine Not Detected (Not Detect); Methadone Screen, Urine Not Detected (Not Detect); Opiate Screen Urine Not Detected (Not Detect); Oxycodone Screen Urine Not Detected (Not Detect); Phencyclidine Screen Urine Not Detected (Not Detect)
--- NOTE | 2024-04-21 19:40 | PHA.MEDREC ---
Addendum entered by Haylee Gauthier claire 04/21/24 20:44: Med rec was reviewed by [facility]. Notified RODRIGO Fall about the problem with confirming keppra and lantus (there are recent pharmacy claims for them but said she can't find the drugs at home). Addendum entered by Kymberly Fernandez 04/21/24 19:42: wasn't sure if patient was still taking Levetiracetam. Claims has Levetiracetam 500 mg BID, last fill date01-13-27 for 90 days and Levetiracetam 750 mg BID, last fill date 01-10-27 for 90 day supply. Left both on confirmed because not sure of the correct dose. will have pharmacist notify MD. Original Note: Pharmacy Consult ? Medication Reconciliation Pharmacy has completed the medication reconciliation. spoke to patient and at bedside thorough claim manager service (Chad) to confirm med list. brought in a list of medications. Patient and state that patient is no longer on Lantus, however last fill date was 01-18-24 for 90 days. I asked twice if patient was no longer on lantus. patient and seemed to be confused. states there is no lantus in her frig.Left unconfirmed For Amitriptyline 25mg patients list says tid, however claims has 25 mg at bedtime. left on what claim states.
[2024-04-21] MEDS: Azithromycin 500 MG in 0.9 % Sodium Chloride 250 ML 125 MG IV (19:56)
[2024-04-21 21:40] LABS: Glucose, Whole Blood 170 mg/dL (60-115)
[2024-04-21] MEDS: Montelukast Sodium 10 MG TABLET PO (21:57)
[2024-04-21] MEDS: Atorvastatin Calcium 40 MG TABLET PO (21:57)
[2024-04-21] MEDS: Gabapentin 300 MG CAPSULE PO (21:57)
[2024-04-21] MEDS: levETIRAcetam 500 MG TABLET PO (21:57)
[2024-04-21] MEDS: Insulin Glargine,Hum.rec.anlog 100 UNIT/ML 10 ML VIAL SUBCUT (21:57)
[2024-04-21] MEDS: Amitriptyline HCl 25 MG TABLET PO (21:57)
[2024-04-21] MEDS: Insulin Lispro 100 UNIT/ML 3 ML VIAL SUBCUT (21:58)
[2024-04-21] MEDS: 0.9 % Sodium Chloride Flush 3 ML SYRINGE IVFLUSH (23:22)
[2024-04-22 03:43] VITALS: BP 134/63; PULSE 90; RESP 20; TEMP 36.4; O2SAT 94
[2024-04-22] MEDS: Omeprazole 20 MG CAPSULE.DR PO (05:44)
[2024-04-22] MEDS: Acetaminophen 325 MG TABLET 650 MG PO (05:46)
[2024-04-22 07:18] VITALS: BP 139/69; PULSE 80; RESP 18; TEMP 37.2; O2SAT 99
[2024-04-22 07:37] LABS: Glucose, Whole Blood 147 mg/dL (60-115)
[2024-04-22 08:26] VITALS: BP 139/69; PULSE 80; O2SAT 99
[2024-04-22] MEDS: Gabapentin 300 MG CAPSULE PO (08:40)
[2024-04-22] MEDS: Sertraline HCL 100 MG TABLET PO (08:40)
[2024-04-22] MEDS: lisinopriL 2.5 MG TABLET PO (08:40)
[2024-04-22] MEDS: Meclizine HCl 25 MG TABLET PO (08:40)
[2024-04-22] MEDS: Cholecalciferol (Vitamin D3) 25 MCG TABLET PO (08:40)
[2024-04-22] MEDS: Aspirin Enteric Coated 81 MG TABLET.DR PO (08:40)
[2024-04-22] MEDS: 0.9 % Sodium Chloride Flush 3 ML SYRINGE IVFLUSH (08:40)
[2024-04-22] MEDS: levETIRAcetam 500 MG TABLET PO (08:40)
--- NOTE | 2024-04-22 10:36 | PM.DS ---
DS: Providers Provider Date of Service: 04/22/24 Date of admission: 04/21/24 16:17 Date of discharge: 04/22/24 Primary care physician: Den Leal MD DS: Diagnosis Discharge Diagnosis (1) Pre-syncope: Status: Acute DS: Summary Hospital Course Hospital Course: from initial hpi: 74-year-old primarily [place] Islander-speaking male with a PMH significant for?COPD, insulin-dependent type 2 diabetes, HLD, hx of brain tumor s/p craniotomy in 1990, seizure disorder, hx of CVA in 2019, and GERD who presents to the ED from home with multiple complaints, though primarily generalized weakness, dizziness, and diaphoresis since last night. Pt reports has been experiencing intermittent dizziness and weakness for the past few months, worse the past few weeks. Last night patient reports symptoms markedly worsened when he was working on his car and he suddenly felt weak, dizzy as if the room was spinning, and also began sweating. Pt reports it felt like I was going to . Lay down and went to sleep, and awoke this morning with minimal improvement to symptoms. Went to the store with his daughter and symptoms worsened and patient had to go home to lay down again. Called EMS and when he went to get up, had witnessed fall without head strike. Patient was caught by his grandson who carefully lowered him to the floor. EMS noted patient was hypotensive upon arrival, gave 500 cc of IVF on route to the hospital. Denies any significant weight loss, though has not been eating or drinking much lately. Also complains of some SOB and mostly nonproductive cough. Has been having left lower extremity numbness and tingling x2+ weeks. Chest tightness associated with cough. In the ED pt was mildly hypertensive up to 148/76. Orthostatics negative. Labs were significant for stable normocytic anemia of 12.1/34.4, lactic acid 3.2 with repeat 1.3, TSH 4.88 3 T4 WNL at 0.97. No leukocytosis. No significant electrolyte abnormalities. Renal and hepatic function baseline. Serial troponins negative. Initial POC 139. Tested negative for flu, RSV, COVID. CXR showed subtle left basilar radiopacity may reflect atelectasis versus evolving infectious/inflammatory etiology. CT?of head negative acute intracranial pathology, though shows frontal postsurgical changes. CT of cervical spine negative for acute visible fracture or dislocation, of shows multi level degenerative changes and very slight grade 1 anterolisthesis of C3 on C4 and C4 on C5. EKG demonstrated normal sinus without significant ST elevations or depressions, similar to previous. Pt was treated with 1 L IVF. Pt will be admitted to the hospital under observation for treatment and further evaluation of presyncope. hospital course: Patient was admitted for presyncope and vertigo. He underwent MRI which showed no acute stroke. Was seen by physical therapy who felt this was likely BPPV and recommended outpatient vestibular therapy. Patient was also initially treated for possible pneumonia, however, CT chest was negative and antibiotics have been discontinued. For COPD he remained stable on his home inhalers. For hypertension was continued on lisinopril. For history of CVA continued on aspirin statin. For diabetes he was continued on basal bolus insulin. For seizure disorder was continued on Keppra. For GERD was continued on PPI. Patient states he is feeling much better will be discharged home Time Attestation Discharge Coordination Time (in mins): 33 Quality: Safe Use of Opioids Does Pt have an Active Cancer Diagnosis on the Problem List?: No Quality: Stroke Does the patient have a stroke diagnosis?: No Physical Exam Vital Signs: Vital Signs: Last Vital Signs Temp 98.9 F 04/22/24 07:18 Pulse 80 04/22/24 08:26 Resp 18 04/22/24 07:18 BP 139/69 04/22/24 08:26 Pulse Ox 99 04/22/24 08:26 O2 Del Method Room Air 04/22/24 07:18 BMI result Body Mass Index 28.3 General: AO X 3, no acute distress Resp: CTA bilateral, no accessory muscles used CVS: S1,S2,RRR GI: soft, non tender, non distended Neuro: motor grossly intact, alert Psych: appropriate affect, appropriate insight DS: Data Data Completed and Pending Labs on day of discharge: Laboratory Results - last 24 hr 04/21/24 04/21/24 04/21/24 11:05 11:20 11:28 WBC 8.0 RBC 4.08 L Hgb 12.1 L Hct 34.4 L MCV 84.3 MCH 29.7 MCHC 35.2 RDW 13.8 Plt Count 221 MPV 8.5 L Immature Gran % (Auto) 0.4 Neut % (Auto) 70.5 Lymph % (Auto) 19.[address] [place] % (Auto) 5.5 Eos % (Auto) 4.3 H Baso % (Auto) 0.3 Lymph # (Auto) 1.5 [place] # (Auto) 0.4 Eos # (Auto) 0.3 Baso # (Auto) 0.0 Abs Immat Gran (auto) 0.03 Absolute Neuts (auto) 5.6 Absolute Nucleated RBC 0.000 Nucleated RBC % (auto) 0.0 ESR 12 PT 12.6 INR 1.0 APTT 28.1 VBG pH 7.43 VBG pCO2 28 VBG pO2 48 VBG HCO3 19 L VBG O2 Saturation 83.0 VBG Base Excess -3.5 Sodium 136 Potassium 4.0 Chloride 106 Carbon Dioxide 18 L Anion Gap 16 BUN 5 L Creatinine 1.17 Estim Creat Clear Calc 58.5 Estimated GFR > 60 POC Glucose 139 H Random Glucose 160 H Lactic Acid 3.2 H* Lactic Acid F/U @ 2Hr Calcium 9.1 Magnesium 2.0 Total Bilirubin 0.8 Direct Bilirubin 0.3 AST 21 ALT 16 Alkaline Phosphatase 112 Ammonia 28 Total Creatine Kinase 119 Troponin I High Sens < 2.7 C-Reactive Protein 0.33 B-Natriuretic Peptide 99 Total Protein 7.7 Albumin 4.2 Lipase 10 TSH 4.88 H Free T4 0.97 Urine Color Urine Appearance Urine pH Ur Specific [place] Urine Protein Urine Glucose (UA) Urine Ketones Urine Blood Urine Nitrite Ur Leukocyte Esterase Urine Opiates Screen Ur Buprenorphine Scrn Ur Oxycodone Screen Urine Methadone Screen Urine Fentanyl Screen Ur Barbiturates Screen Ur Phencyclidine Scrn Ur Amphetamines Screen U Benzodiazepines Scrn Urine Cocaine Screen U Marijuana (THC) Screen Ethyl Alcohol < 10 Influenza Type A (PCR) NEGATIVE Influenza Type B (PCR) NEGATIVE RSV RNA Qual (PCR) NEGATIVE SARS-CoV-2 RNA (RT-PCR) NEGATIVE 04/21/24 04/21/24 04/21/24 14:29 17:07 21:28 WBC RBC Hgb Hct MCV MCH MCHC RDW Plt Count MPV Immature Gran % (Auto) Neut % (Auto) Lymph % (Auto) [place] % (Auto) Eos % (Auto) Baso % (Auto) Lymph # (Auto) [place] # (Auto) Eos # (Auto) Baso # (Auto) Abs Immat Gran (auto) Absolute Neuts (auto) Absolute Nucleated RBC Nucleated RBC % (auto) ESR PT INR APTT VBG pH VBG pCO2 VBG pO2 VBG HCO3 VBG O2 Saturation VBG Base Excess Sodium Potassium Chloride Carbon Dioxide Anion Gap BUN Creatinine Estim Creat Clear Calc Estimated GFR POC Glucose 170 H Random Glucose Lactic Acid Lactic Acid F/U @ 2Hr 1.3 Calcium Magnesium Total Bilirubin Direct Bilirubin AST ALT Alkaline Phosphatase Ammonia Total Creatine Kinase Troponin I High Sens < 2.7 C-Reactive Protein B-Natriuretic Peptide Total Protein Albumin Lipase TSH Free T4 Urine Color Yellow Urine Appearance Clear Urine pH 7.0 Ur Specific [place] <= 1.005 Urine Protein Negative Urine Glucose (UA) 100 H Urine Ketones Negative Urine Blood Negative Urine Nitrite Negative Ur Leukocyte Esterase Negative Urine Opiates Screen Not Detected Ur Buprenorphine Scrn Not Detected Ur Oxycodone Screen Not Detected Urine Methadone Screen Not Detected Urine Fentanyl Screen Not Detected Ur Barbiturates Screen Not Detected Ur Phencyclidine Scrn Not Detected Ur Amphetamines Screen Not Detected U Benzodiazepines Scrn Not Detected Urine Cocaine Screen Not Detected U Marijuana (THC) Screen Not Detected Ethyl Alcohol Influenza Type A (PCR) Influenza Type B (PCR) RSV RNA Qual (PCR) SARS-CoV-2 RNA (RT-PCR) 04/22/24 07:28 WBC RBC Hgb Hct MCV MCH MCHC RDW Plt Count MPV Immature Gran % (Auto) Neut % (Auto) Lymph % (Auto) [place] % (Auto) Eos % (Auto) Baso % (Auto) Lymph # (Auto) [place] # (Auto) Eos # (Auto) Baso # (Auto) Abs Immat Gran (auto) Absolute Neuts (auto) Absolute Nucleated RBC Nucleated RBC % (auto) ESR PT INR APTT VBG pH VBG pCO2 VBG pO2 VBG HCO3 VBG O2 Saturation VBG Base Excess Sodium Potassium Chloride Carbon Dioxide Anion Gap BUN Creatinine Estim Creat Clear Calc Estimated GFR POC Glucose 147 H Random Glucose Lactic Acid Lactic Acid F/U @ 2Hr Calcium Magnesium Total Bilirubin Direct Bilirubin AST ALT Alkaline Phosphatase Ammonia Total Creatine Kinase Troponin I High Sens C-Reactive Protein B-Natriuretic Peptide Total Protein Albumin Lipase TSH Free T4 Urine Color Urine Appearance Urine pH Ur Specific [place] Urine Protein Urine Glucose (UA) Urine Ketones Urine Blood Urine Nitrite Ur Leukocyte Esterase Urine Opiates Screen Ur Buprenorphine Scrn Ur Oxycodone Screen Urine Methadone Screen Urine Fentanyl Screen Ur Barbiturates Screen Ur Phencyclidine Scrn Ur Amphetamines Screen U Benzodiazepines Scrn Urine Cocaine Screen U Marijuana (THC) Screen Ethyl Alcohol Influenza Type A (PCR) Influenza Type B (PCR) RSV RNA Qual (PCR) SARS-CoV-2 RNA (RT-PCR) Discharge Plan Discharge Anticipated Discharge Date/Time: 04/22/24 10:34 Patient Disposition: Home, Self-Care Discharge Diagnosis: vertigo Referrals: Po,Den Petty MD [Primary Care Provider] - 1 Week Discharge Medications: Continued (DME) lancets [OneTouch UltraSoft 2 Lancet] 30 gauge misc See Rx Instructions .Route Qty: 100 5RF Rx Instructions: As directed albuterol sulfate [Ventolin HFA] 90 mcg/actuation HFA aerosol inhaler 2 puff PO Q4-6H PRN (Reason: for wheezing) Qty: 18 0RF montelukast [Singulair] 10 mg tablet 10 mg PO BEDTIME 90 Days Qty: 90 1RF atorvastatin 40 mg tablet 40 mg PO BEDTIME Qty: 90 3RF cholecalciferol (vitamin D3) 50 mcg (2,000 unit) capsule 2,000 unit PO DAILY Qty: 90 2RF metformin 1,000 mg tablet 1,000 mg PO BID 90 Days Qty: 180 2RF fluticasone furoate-vilanterol [Breo Ellipta] 200-25 mcg/dose blister with device 1 inh inhalation DAILY Qty: 60 2RF aspirin 81 mg tablet,delayed release (DR/EC) 81 mg PO DAILY Qty: 90 3RF lisinopril 2.5 mg tablet 2.5 mg PO DAILY 90 Days Qty: 90 3RF levetiracetam [Keppra] 500 mg tablet 500 mg PO Q12H Qty: 60 5RF meclizine 25 mg tablet 25 mg PO TID PRN (Reason: dizziness) Qty: 60 8RF amitriptyline 25 mg tablet 25 mg PO BEDTIME Qty: 90 1RF (DME) FreeStyle Precision Mike Strips Strip See Rx Instructions .Route Qty: 50 3RF Rx Instructions: Once daily as needed to check blood glucose when CGM reads high or low omeprazole 20 mg capsule,delayed release(DR/EC) 20 mg PO DAILY 90 Days Qty: 90 1RF (DME) adult pull ups medium See Rx Instructions .Route .MEDSUPPLY Qty: 100 0RF Rx Instructions: As directed (DME) bed rails See Rx Instructions .Route .MEDSUPPLY Qty: 2 0RF Rx Instructions: As directed (DME) Grab bars for bathroom See Rx Instructions .Route .MEDSUPPLY Qty: 2 0RF Rx Instructions: As directed (DME) hand held shower See Rx Instructions .Route .MEDSUPPLY Qty: 1 0RF Rx Instructions: As directed (DME) shower bench with back See Rx Instructions .Route .MEDSUPPLY Qty: 1 0RF Rx Instructions: As directed (DME) shower chair See Rx Instructions .Route .MEDSUPPLY Qty: 1 0RF Rx Instructions: As directed acetaminophen [Tylenol] 325 mg capsule 650 mg PO Q6H PRN (Reason: pain) Qty: 30 0RF Ozempic 1 mg/dose (4 mg/3 mL) pen injector 1 mg subcut MO (DME) Compact Compressor Nebulizer Misc See Rx Instructions .Route Qty: 1 0RF Rx Instructions: As directed [place] [place] nebulizer accessories Kit See Rx Instructions .Route Qty: 1 0RF Rx Instructions: As directed gabapentin 300 mg capsule 300 mg PO BID Qty: 180 1RF (DME) pen needle, diabetic [BD Ultra-Fine Mini Pen Needle] 31 gauge x 3/16 needle See Rx Instructions .Route Qty: 100 3RF Rx Instructions: As directed Inject LAntus 10 u QD sertraline 100 mg tablet 100 mg PO DAILY Lantus Solostar U-100 Insulin 100 unit/mL (3 mL) insulin pen 10 unit subcut DAILY (DME) FreeStyle Scott 3 [place] Misc See Rx Instructions .Route Qty: 1 0RF Rx Instructions: As directed (DME) FreeStyle Scott 3 Sensor Device See Rx Instructions .Route Qty: 9 5RF Rx Instructions: As directed change every 14 days levetiracetam 750 mg tablet 750 mg PO BID Qty: 60 6RF Discharge Orders: Discharge Order (Routine); Ordered 04/22/24 Ordered By: Sina Posada Diet: Advance to usual diet Activity on Discharge: As tolerated Stand Alone Forms: Patient Portal Discharge page Print Language: [place] Care Plan Goals: maange vertigo Health Concerns: vertigo Plan of Treatment: outpatient PT, meclizine Assessment: see above
--- NOTE | 2024-04-22 10:38 | MHC.CM.PN ---
MYRIAM 04/22. This CM met with pt with the assistance of a hourly sign language interpreter. Pt self-care, lives at home with his and great granddaughter. Pt uses a cane and receives [facility] TRIMMER services. HCP on file and verified. PCP: Dr. Crenshaw Po
--- NOTE | 2024-04-22 10:40 | MHC.CM.PN ---
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
== END 2024-04-22 11:02 | disposition home or self-care (01) ==
LOC: HO.ED 15:13 → HO.EDOVER 16:26 → HO.IMC 19:41
PROVIDERS: Physician Assistant; Admitting Provider Student in an Organized Health Care Education/Training Program; Emergency Provider Emergency Medicine; PCP Internal Medicine; Visit Provider Internal Medicine
DX: R42 Dizziness and giddiness (principal); R55 Syncope and collapse; R53.1 Weakness; R61 Generalized hyperhidrosis; J44.9 Chronic obstructive pulmonary disease, unspecified; K21.9 Gastro-esophageal reflux disease without esophagitis; E11.9 Type 2 diabetes mellitus without complications; E78.5 Hyperlipidemia, unspecified; R11.0 Nausea; R05.9 Cough, unspecified; R20.0 Anesthesia of skin; Z86.73 Personal history of transient ischemic attack (TIA), and cerebral infarction without residual deficits; Z79.899 Other long term (current) drug therapy; Z79.4 Long term (current) use of insulin; E87.20 Acidosis, unspecified; I10 Essential (primary) hypertension; G40.909 Epilepsy, unspecified, not intractable, without status epilepticus; Z91.81 History of falling; Z80.41 Family history of malignant neoplasm of ovary; Z80.1 Family history of malignant neoplasm of trachea, bronchus and lung; M54.50 Low back pain, unspecified; F32.A Depression, unspecified; Z03.818 Encounter for observation for suspected exposure to other biological agents ruled out
CPT/HCPCS: 0241U; 36415; 70450; 70551; 71045; 71250; 72125; 80048; 80076; 80307; 81003; 82140; 82550; 82803; 82947; 83605; 83690; 83735; 83880; 84439; 84443; 84484; 85025; 85610; 85652; 85730; 86140; 87040; 93005; 96361; 96365; 96366; 96367; 96372; 97161; 99222; 99285; J0456; J0696; J1650; J7120

== ENCOUNTER → 2024-04-21 16:17 | Outpatient (BNV) | payer OTHER, SELFPAY | PROVIDERS: Admitting Provider Student in an Organized Health Care Education/Training Program; Emergency Provider Emergency Medicine; PCP Internal Medicine; Visit Provider Student in an Organized Health Care Education/Training Program | DX: R55 Syncope and collapse (principal) | CPT/HCPCS: 99222; 99239 ==

== ENCOUNTER 2024-04-25 09:59 | Outpatient (RCR) | payer OTHER, SELFPAY ==
[2024-04-25 10:08] VITALS: BP 128/70
--- NOTE | 2024-04-25 14:05 | MHC.PT.EP ---
[facility] [place] [facility] [place] [facility] [place] [facility] [address] [place] [address] Dr Krystle Lomax [address] [phone] F: [phone] F: [phone] F: [phone] F: [phone] Physical Therapy Plan of Care Date of Evaluation: 04/25/24 Date of Surgery: Diagnosis: dizziness and giddiness unspecified disorder of ear other peripheral vertigo Assessment: 74 y/o male referred to PT with dizziness and giddiness. Of note, PMH significant for?brain tumor s/p craniotomy 1990 (brain tumor is recurring however), seizures (last seizure 11/2023), HTN, DM, COPD, and hx of CVA in 2019. Reports vertigo for several years (since brain tumor and worse after CVA with decrease L eye vision) that has recently worsened. Describes vertigo as spinning that lasts up to 30 minutes of insidous onset, sometimes with movements and sometimes sporadic. He reports n/v sometimes. Also tinnitus L ear since 1990 Currently he presents with impaired oculomotor saccades/ smooth pursuits, (-) VBI, DGI, slightly impaired balance with eyes closed situations and (-) for BPPV for nystagmus and sx. At this time, will have pt return for 2 more visits to implement HEP for vestibular habituation and balance. Also recommend pt f/u with MD regarding dizziness as he was negative for BPPV. 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 Manual therapy to restore motion and function. Therapeutic exercise to improve strength and flexibility. Neuromuscular re-education for posture and balance. Therapeutic activities to return to functional activities of daily living. Electronically signed by: Elizabeht Damon PT Please sign and return to therapist. Thank you for your referral.
--- NOTE | 2024-05-16 09:16 | MHC.PT.DC ---
[facility] [place] [facility] [place] [facility] [address] Krystle Lomax [address] [phone] F: [phone] F: [phone] F: [phone] F: [phone] Physical Therapy Discharge Report Diagnosis: dizziness and giddiness unspecified disorder of ear other peripheral vertigo Date of Surgery: Date of Evaluation: 04/25/24 Date of Discharge: 05/16/24 Treatments to Date: 1 Cancellations to Date: 0 No Shows to Date: 2 Discharge Status: Visit Non-compliance Discharge Summary: Pt did not f/u with PT for balance and had two consecutive no show visits. Therefore d/c at this time Electronically signed by: Elizabeth Damon PT Please sign and return to therapist. Thank you for your referral.
== END 2024-05-16 09:17 | disposition home or self-care (01) ==
LOC: HO.PTCHIC 09:59
PROVIDERS: PCP Internal Medicine; Visit Provider Nurse Practitioner Family
DX: H81.399 Other peripheral vertigo, unspecified ear (principal); H93.90 Unspecified disorder of ear, unspecified ear
CPT/HCPCS: 97162

== ENCOUNTER 2024-05-02 13:02 | Outpatient (REF) | payer OTHER, SELFPAY ==
--- NOTE | ~2024-05-02 | XR_ITS ---
EXAMINATION: XR KNEE, LEFT CLINICAL INFORMATION: M25.562 - Pain in left knee COMPARISON: 01/29/2017. TECHNIQUE: Three views of the left knee. FINDINGS: No fracture, dislocation, or suspicious focal bony lesion. Normal alignment. Normal mineralization. Mild medial and lateral compartment osteoarthrosis is present, with moderate patellofemoral degenerative arthritis, with marginal osteophytic production and moderate joint space narrowing. Mild spurring of the tibial spines. There may be very subtle chondrocalcinosis present, which could suggest CPPD. Mild enthesopathy of the tibial tubercle. No significant joint effusion. Vascular calcifications diffusely in the soft tissues. Soft tissues otherwise normal. XR/XR knee LT 3V IMPRESSION: 1. No acute bony abnormalities. 2. No significant joint effusion. 3. Mild medial and lateral compartment, and moderate patellofemoral compartment osteoarthrosis. Electronically signed by: Miguel Cowan MD 07/11/2024 09:34 AM [place]
--- NOTE | ~2024-05-02 | XR_ITS ---
EXAMINATION: XR KNEE, RIGHT CLINICAL INFORMATION: M25.561 - Pain in right knee COMPARISON: None available. TECHNIQUE: AP view of the right knee. FINDINGS: No fracture, dislocation, or focal bony abnormality. Mild to moderate medial compartment joint space narrowing with mild marginal osteophytic spurring. Lateral compartment appears preserved. Normal alignment of the knee joint. No soft tissue abnormality aside from vascular calcification. XR/XR knee RT 1V IMPRESSION: 1. No acute bony abnormalities. 2. Mild to moderate osteoarthrosis medial compartment. Electronically signed by: Miguel Cowan MD 07/11/2024 09:30 AM [facility]
== END 2024-05-02 13:03 | disposition home or self-care (01) ==
LOC: HO.HOSX 13:02
PROVIDERS: PCP Internal Medicine
DX: M25.562 Pain in left knee (principal); M25.561 Pain in right knee; M17.12 Unilateral primary osteoarthritis, left knee
CPT/HCPCS: 73560; 73562; 99212

== ENCOUNTER → 2024-05-02 13:12 | Outpatient (BNV) | payer OTHER, SELFPAY | PROVIDERS: PCP Internal Medicine; Visit Provider Radiology Diagnostic Radiology | DX: M25.561 Pain in right knee (principal); M25.562 Pain in left knee | CPT/HCPCS: 73560; 73562 ==

== ENCOUNTER 2024-05-02 13:32 | Outpatient (AMB) | payer OTHER, SELFPAY ==
--- NOTE | 2024-05-02 14:12 | A.OFFVIS_ITS ---
Vital Signs 05/02/24 14:21 Height 5 ft 4 in Weight 181 lb BMI 31.1 Intake Visit Reasons: Newprob-Left knee pain Intake Note: Geovanny is a 74 year old Chinese speaking male who presents today for a new problem visit with complaints of left knee pain. Patient reports he has been constant pain in the right knee for roughly 9 years now. He states occasionally he has swelling from the knee down in his right leg. He says his pain is located in the later, medical, anterior and posterior aspect of his knee. When he is laying down at night he expresses some times his knee feels as if it falling asleep. Patient has difficulty with prolonged sitting, standing and ambulation due to symptoms. Denies recent trauma or past medical treatment. Tylenol does not offer adequate relief and he is unable to take ibuprofen. Hx of DM. Shank Turner Required: Yes Shank Turner Language: Estimator Project Manager Name: [id number] Allergies aspirin [ASPIRIN] Allergy (Intermediate, Verified 05/03/24 08:56) RASH WITH HIGH DOSES Penicillins Allergy (Mild, Verified 05/03/24 08:56) HIVES phenytoin [From Dilantin] Allergy (Mild, Verified 05/03/24 08:56) BURNING SENSATION IN BODY butalbital [BUTALBITAL] Allergy (Unknown, Verified 05/03/24 08:56) HIVES thimerosal [THIMEROSAL] Allergy (Unknown, Verified 05/03/24 08:56) UNKNOWN doxycycline Adverse Reaction (Intermediate, Verified 05/03/24 08:56) penile rash? [place] Allergy (Unknown, Uncoded 05/03/24 08:56) Unknown MOTRIN Allergy (Unknown, Uncoded 05/03/24 08:56) hives HPI HPI Newprob-Left knee pain: Details: Patient is a 74-year-old male presents for evaluation of left knee pain, ongoing for approximately 8-9 months. Patient reports that there was no particular injury or incident that caused this pain to start, but states that it has been progressively worsening over that time. The patient reports that his pain is diffuse throughout the left knee. The patient reports that it makes it difficult to ambulate for long periods of time, as well as sitting in the same position for extended periods of time due to pain. Patient reports that his range of motion is fairly restricted. Patient reports that he has been taking Tylenol for relief, with minimal effect. Patient is unable to take ibuprofen. Patient does have a history significant for diabetes. No other acute complaints or concerns at this time. [facility] Medical History Vertigo Other peripheral vertigo, unspecified ear Insulin long-term use Unspecified disorder of ear Seizure Seizure Frequency of micturition Testicular pain Skin cyst Stroke Lipoma of abdominal wall History of carpal tunnel syndrome BERNARD positive Inguinal hernia, bilateral BPH (benign prostatic hyperplasia) Brain tumor Hypercholesterolemia Obstructive sleep apnea Vitamin D deficiency Obesity (BMI 30-39.9) Vitamin B12 deficiency GERD (gastroesophageal reflux disease) Grand mal seizure disorder Erectile dysfunction Osteoarthritis COPD (chronic obstructive pulmonary disease) Tennis elbow Calcaneal spur, right RLS (restless legs syndrome) Pulmonary nodule Insomnia Essential hypertension Diabetes mellitus with hyperglycemia Migraine Surgical History Hx of carpal tunnel repair History of diverticulosis Hx of colonoscopy History of elbow surgery Hx of foot surgery Hx of brain surgery History of partial gastrectomy History of right inguinal hernia repair Hx of prostate biopsy Family History Father Diabetes Throat cancer Heart disease Mother Ovarian cancer Social History Household Members: Spouse Housing: House Are you a primary floor care technician to a significant other at home: No Do you presently have visiting nurse or other home services: Yes ([facility]) Alcohol intake: never Patient Tobacco Use Status: Never used Tobacco e-Cigarette/Vaping Use: Never Used Second Hand Smoke Exposure: No Advance Directives Date on File: 06/13/21 service: No Current occupational status: retired Current occupation: rt handed Cognitive needs: No Hearing needs: No Vision needs: No Review of Systems Const All systems reviewed & are unremarkable except as noted in HPI and below Physical Exam Vital Signs: BMI result Body Mass Index 31.1 Extrem Other: On inspection, there is no visible deformity of the left knee Mild to moderate joint effusion noted in the left No erythema, ecchymosis noted No lacerations, abrasions, open areas No evidence of infection Patient reports diffuse tenderness to palpation of the left knee, worst in the medial and lateral anterior joint lines Patient is able to extend the left knee to 0 degrees and flex to approximately 120 degrees, but reports some discomfort at the extremes of range of motion No ligamentous laxity noted Distal sensation intact Capillary refill brisk Negative Gemma's Results Reviewed Results Reviewed: X-rays obtained in the office today and independently reviewed by me, Gabriel Stacy PA-C, demonstrate [id number] degenerative changes of the left tibiofemoral joint, with moderate to severe degenerative changes of the patellofemoral joint noted, with significant joint space narrowing and osteophyte formation. No fracture or acute bony abnormality noted Assessment & Plan Assessment & Plan (1) Osteoarthritis of left knee: Code(s): M17.12 - Unilateral primary osteoarthritis, left knee Category: Medical Plan 1. Osteoarthritis of left knee Patient is educated about this condition Patient is educated about the typical recovery course Patient states that he would like to proceed with injection at this time, however he is unsure of what his current blood sugar levels are, as he states he ran out of blood glucose measurement strips approximately 2-3 months ago, and his primary care provider is in the process of obtaining more for him Patient is informed that due to the risk of blood sugar spikes with steroid injections, I am unable to inject his knee unless he has more recent blood sugar readings, due to risks of DKA or other complications of severe hyperglycemia Patient understands this In the meantime, patient is referred to physical therapy for range of motion, strengthening, stabilization of left knee for improvement of functional capacity while awaiting blood sugar measurement device Patient is amenable to this plan Patient will call to make appointment after he gets blood sugar measurement materials for discussion of left knee injection at that time, sooner with any acute concerns Orders: Orders XR knee RT 1V 05/02/24 M25.561 - Pain in right knee PT Evaluation and Treatment 05/02/24 M17.12 - Unilateral primary osteoarthritis, left knee XR knee LT 3V 05/02/24 M25.562 - Pain in left knee Coding Level of Care Code Est Pt Level 3 (06443) Diagnoses Osteoarthritis of left knee M17.12
[2024-05-02 14:21] VITALS: BMI 31.1
== END 2024-05-02 14:45 | disposition home or self-care (01) ==
LOC: HO.HOS 13:32
PROVIDERS: PCP Internal Medicine
DX: M17.12 Unilateral primary osteoarthritis, left knee (principal)
CPT/HCPCS: 99213

== ENCOUNTER 2024-05-03 08:50 | Outpatient (AMB) | payer OTHER, SELFPAY ==
--- NOTE | 2024-05-03 08:55 | MHC.PC.OV ---
Vital Signs 05/03/24 08:57 Height 5 ft 4 in Weight 180 lb 8 oz BMI 31.0 BP 110/72 Blood Pressure Location Lt brachial Position Sitting Pulse 74 Pulse Source Pulse Oximeter Pulse Oximetry (%) 98 Oxygen Delivery Method Room Air Intake Visit Reasons: TCM DIZZINESS AND WEAKNESS Intake Note: Patient is here for hospital discharge follow up and TCM. [place] [facility] [place] Director Decision Support Required: No Corporate Controller: Present Accompanied by: Spouse Allergies aspirin [ASPIRIN] Allergy (Intermediate, Verified 05/03/24 08:56) RASH WITH HIGH DOSES Penicillins Allergy (Mild, Verified 05/03/24 08:56) HIVES phenytoin [From Dilantin] Allergy (Mild, Verified 05/03/24 08:56) BURNING SENSATION IN BODY butalbital [BUTALBITAL] Allergy (Unknown, Verified 05/03/24 08:56) HIVES thimerosal [THIMEROSAL] Allergy (Unknown, Verified 05/03/24 08:56) UNKNOWN doxycycline Adverse Reaction (Intermediate, Verified 05/03/24 08:56) penile rash? [place] Allergy (Unknown, Uncoded 05/03/24 08:56) Unknown MOTRIN Allergy (Unknown, Uncoded 05/03/24 08:56) hives Tobacco use date assessed: 05/03/24 Fall risk assessment: 2 + Falls in past year Last assessed Fall Risk: 05/03/24 Dental Screening Dental Screen Date: 09/23/23 [facility] TCM TCM Information Date of Discharge 04/22/24 Discharged From [facility] Interactive Contact Date (Reference documentation from this date) 04/25/24 HPI Comments History of Present Illness Details 74 y/o male patient who presents to the clinic for TCM. Accompanied by who provides history and translation today. He was admitted [place] [facility] [place] for Pre-syncope episode. He was discharged home 04/22/24. Pt was evaluated for Vestibular Physical therapy and per Pt's he was told he did not have Vertigo. He was also evaluated and seen by Neurology after discharge, who recommended they see Sleep disorder Specialist for KELLY. He has an appointment with Sleep specialist on 06/02/24. He does have prior h/o KELLY with CPAP, but according to Patient was never compliant with wearing the mask. Neuro believes KELLY is the contributing factor. . [facility] Medical History Vertigo Other peripheral vertigo, unspecified ear Insulin long-term use Unspecified disorder of ear Seizure Seizure Frequency of micturition Testicular pain Skin cyst Stroke Lipoma of abdominal wall History of carpal tunnel syndrome BERNARD positive Inguinal hernia, bilateral BPH (benign prostatic hyperplasia) Brain tumor Hypercholesterolemia Obstructive sleep apnea Vitamin D deficiency Obesity (BMI 30-39.9) Vitamin B12 deficiency GERD (gastroesophageal reflux disease) Grand mal seizure disorder Erectile dysfunction Osteoarthritis COPD (chronic obstructive pulmonary disease) Tennis elbow Calcaneal spur, right RLS (restless legs syndrome) Pulmonary nodule Insomnia Essential hypertension Diabetes mellitus with hyperglycemia Migraine Surgical History Hx of carpal tunnel repair History of diverticulosis Hx of colonoscopy History of elbow surgery Hx of foot surgery Hx of brain surgery History of partial gastrectomy History of right inguinal hernia repair Hx of prostate biopsy Family History Father Diabetes Throat cancer Heart disease Mother Ovarian cancer Social History Household Members: Spouse Housing: House Are you a primary daytime caregiver to a significant other at home: No Do you presently have visiting nurse or other home services: Yes ([facility]) Alcohol intake: never Patient Tobacco Use Status: Never used Tobacco e-Cigarette/Vaping Use: Never Used Second Hand Smoke Exposure: No Advance Directives Date on File: 06/13/21 service: No Current occupational status: retired Current occupation: rt handed Cognitive needs: No Hearing needs: No Vision needs: No Questionnaire Thrive Questionnaire Date Thrive assessed: 04/22/24 Are you currently unemployed and looking for a job?: I choose not to answer this question LANA-7 AMB Questionnaire LANA-7 Date LANA - 7 assessed: 09/23/23 Source: Developed by Drs. Bonifacio Disla, Cristine Card, Orville Morley and colleagues, with an educational jackson from [employer]. Review of Systems Const All systems reviewed & are unremarkable except as noted in HPI and below Physical exam (Primary Care) Vital Signs: Last Vital Signs Pulse 74 05/03/24 08:57 BP 110/72 05/03/24 08:57 Pulse Ox 98 05/03/24 08:57 Oxygen Delivery Method Room Air 05/03/24 08:57 BMI result Body Mass Index 31.0 Tobacco/Smoking Status: Tobacco use Status Tobacco use date assessed 05/03/24 05/03/24 09:03 Patient Tobacco Use Status Never used Tobacco 05/03/24 09:03 e-Cigarette/Vaping Use Never Used 05/03/24 09:03 Thrive Assessment: Date of Thrive Assessment Date Thrive assessed 04/22/24 05/03/24 09:03 Const General: comfortable and no acute distress Orientation/consciousness: patient oriented x3 HENMT Head: Yes normocephalic Eyes Pupils: Equal, round and reactive pupils present EOM: EOMs intact bilaterally Resp Effort & Inspection: normal respiratory effort Auscultation: clear to auscultation bilaterally, no crackles, no rales, no rhonchi and no wheezes Cardio Heart sounds: S1 normal heart sound present and S2 normal heart sound present Skin General skin exam: no rashes or lesions noted Neuro General: patient oriented x3, gait normal and moves all extremities Cranial nerves: Yes Equal, round and reactive pupils present Psych Speech and movement: Normal speech and movement present Assessment and Plan Assessment & Plan (1) BPPV (benign paroxysmal positional vertigo): Code(s): H81.10 - Benign paroxysmal vertigo, unspecified ear Qualifiers: Laterality: unspecified laterality Qualified Code(s): H81.10 - Benign paroxysmal vertigo, unspecified ear Plan: Managed by Neurology. Questing KELLY as contributing Factor vs Vertigo. (2) Pre-syncope: Code(s): R55 - Syncope and collapse Plan: Managed by Neurology. Questing KELLY as contributing Factor vs Vertigo. 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 100 ea 0RF E11.65 - Type 2 diabetes mellitus with hyperglycemia, Z79.4 - group home (current) use of insulin Coding Level of Care Code TCM Mod MDM <= 14 Days Diagnoses Benign paroxysmal positional vertigo, unspecified laterality H81.10 Laterality: unspecified laterality Pre-syncope R55
[2024-05-03 08:57] VITALS: BP 110/72; PULSE 74; O2SAT 98; BMI 31.0
== END 2024-05-03 11:40 | disposition home or self-care (01) ==
PROVIDERS: PCP Internal Medicine; Visit Provider Nurse Practitioner Family
DX: R55 Syncope and collapse (principal); H81.10 Benign paroxysmal vertigo, unspecified ear

== ENCOUNTER → 2024-05-03 08:50 | Outpatient (BNVA) | payer OTHER, SELFPAY | PROVIDERS: PCP Internal Medicine; Visit Provider Nurse Practitioner Family | DX: H81.10 Benign paroxysmal vertigo, unspecified ear (principal); R55 Syncope and collapse | CPT/HCPCS: 99495 ==

== ENCOUNTER 2024-05-23 12:46 | Outpatient (AMB) | payer OTHER, SELFPAY ==
--- NOTE | 2024-05-23 12:52 | A.OFFPC_ITS ---
Vital Signs 05/23/24 12:53 Height 5 ft 4 in Weight 180 lb BMI 30.9 BP 120/72 Blood Pressure Location Lt brachial Position Sitting Pulse 83 Pulse Source Pulse Oximeter Pulse Oximetry (%) 97 Oxygen Delivery Method Room Air Intake Visit Reasons: DM Intake Note: Patient is here to follow up on DM. Expansion Envelope Maker Hand Required: No Quality Coordinator: Not Required per policy Accompanied by: Self / Same As Patient Allergies aspirin [ASPIRIN] Allergy (Intermediate, Verified 05/23/24 12:53) RASH WITH HIGH DOSES Penicillins Allergy (Mild, Verified 05/23/24 12:53) HIVES phenytoin [From Dilantin] Allergy (Mild, Verified 05/23/24 12:53) BURNING SENSATION IN BODY butalbital [BUTALBITAL] Allergy (Unknown, Verified 05/23/24 12:53) HIVES thimerosal [THIMEROSAL] Allergy (Unknown, Verified 05/23/24 12:53) UNKNOWN doxycycline Adverse Reaction (Intermediate, Verified 05/23/24 12:53) penile rash? Charlotte Allergy (Unknown, Uncoded 05/23/24 12:53) Unknown MOTRIN Allergy (Unknown, Uncoded 05/23/24 12:53) hives Tobacco use date assessed: 05/23/24 Fall risk assessment: 1 Fall in past year Last assessed Fall Risk: 05/23/24 Dental Screening Dental Screen Date: 09/23/23 HPI DM HPI Details 74-year-old obese male with diabetes maggie litus hypertension GERD hypercholesterolemia recurrent major depression asthma coming in for follow-up. Last seen December 2023. 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 Recent ED visit has Keppra 500 mg twice a day patient was advised to follow-up with Neurology in [place].. Patient also follows up with orthopedics for left knee pain osteoarthritis in March patient did see Urology also for BPH. On bethanechol doing good and would like to hold off medication patient on the other seen Endocrinology in March 2024 placed on Ozempic and discontinued Trulicity. In March 7 had right wrist osteoarthritis and had injections.. Patient's last cholesterol test was done in 11/28/2023 LDL of 76. Ptient has a ff up with ENDO - aic still high PFSH Medical History (Updated 05/23/24 @ 13:35 by Den Leal MD) Nocturia Pre-syncope Unspecified disorder of ear Seizure Bladder wall thickening Incontinence Lower urinary tract symptoms Enlarged prostate Vertigo Other peripheral vertigo, unspecified ear Insulin long-term use Seizure Frequency of micturition Testicular pain Skin cyst Stroke Lipoma of abdominal wall History of carpal tunnel syndrome BERNARD positive Inguinal hernia, bilateral BPH (benign prostatic hyperplasia) Brain tumor Hypercholesterolemia Obstructive sleep apnea Vitamin D deficiency Obesity (BMI 30-39.9) Vitamin B12 deficiency GERD (gastroesophageal reflux disease) Grand mal seizure disorder Erectile dysfunction Osteoarthritis COPD (chronic obstructive pulmonary disease) Tennis elbow Calcaneal spur, right RLS (restless legs syndrome) Pulmonary nodule Insomnia Essential hypertension Diabetes mellitus with hyperglycemia Migraine Surgical History Hx of carpal tunnel repair History of diverticulosis Hx of colonoscopy History of elbow surgery Hx of foot surgery Hx of brain surgery History of partial gastrectomy History of right inguinal hernia repair Hx of prostate biopsy Family History Father Diabetes Throat cancer Heart disease Mother Ovarian cancer Social History Household Members: Spouse Housing: House Are you a primary manager care to a significant other at home: No Do you presently have visiting nurse or other home services: Yes (VNA) Alcohol intake: never Patient Tobacco Use Status: Never used Tobacco e-Cigarette/Vaping Use: Never Used Second Hand Smoke Exposure: No Advance Directives Date on File: 06/13/21 service: No Current occupational status: retired Current occupation: rt handed Cognitive needs: No Hearing needs: No Vision needs: No Questionnaire Thrive Questionnaire Date Thrive assessed: 04/22/24 Are you currently unemployed and looking for a job?: I choose not to answer this question LANA-7 AMB Questionnaire LANA-7 Date LANA - 7 assessed: 09/23/23 Source: Developed by Drs. Bonifacio Disla, Cristine Card, Orville Morley and colleagues, with an educational jackson from [employer]. Physical exam (Primary Care) Vital Signs: Last Vital Signs Pulse 83 05/23/24 12:53 BP 120/72 05/23/24 12:53 Pulse Ox 97 05/23/24 12:53 Oxygen Delivery Method Room Air 05/23/24 12:53 BMI result Body Mass Index 30.9 Tobacco/Smoking Status: Tobacco use Status Tobacco use date assessed 05/23/24 05/23/24 13:02 Patient Tobacco Use Status Never used Tobacco 05/23/24 13:02 e-Cigarette/Vaping Use Never Used 05/23/24 13:02 Thrive Assessment: Date of Thrive Assessment Date Thrive assessed 04/22/24 05/23/24 13:02 Const General: alert; No acute distress Eyes Conjunctivae: conjunctivae normal Resp Auscultation: clear to auscultation bilaterally Cardio Rate: regular rate Rhythm: regular rhythm GI Inspection: Yes normal to inspection Extrem General: Yes normal to inspection and No edema Office Procedures Flu Questionnaire Does the patient have a severe egg allergy?: No Does the patient have severe life threatening allergies?: No Does the patient have a fever or illness today?: No Has the patient ever had Guillain-Panna Maria Syndrome?: No Has the patient ever had any past reaction to a flu shot?: No Results AMB Hemoglobin A1c AMB Hemoglobin A1c 8.3 % Last Edit by UDAY Carrillo on 05/23/24 13:12 Immunizations Fluarix Triv [id number] (PF) 45 mcg (15 mcg x 3)/0.5 mL IM syringe Performing Provider: Den Leal MD [place] [facility] [place] [facility] Administered by: Tawnya Singer LPN on 05/23/24 13:06 Dose Route Admin Location Dispensed Lot Number Expiration Date NDC Manager Flight 0.5 mL IM Left Deltoid 0.5 mL [id number] 02/06/25 [id number] GLAXCabeoINE VIS Given Date VIS Provided VIS Publication Date 05/23/24 Single Vaccine 21 Eligibility Eligibility Date Funding Source Not [facility] Eligible 05/23/24 Private Results Reviewed Results Reviewed: Laboratory Last Values Hgb A1c (Clinic) 8.3 % (4.0-6.0) H 05/23/24 12:51 Coding Level of Care Code Est Pt Level 4 (80457) Complex EM visit Add On G2211 Diagnoses Type 2 diabetes mellitus with hyperglycemia, with long-term current use of insulin E11.65; Z79.4 Diabetes mellitus type: type 2 Diabetes mellitus penitentiary insulin use: with penitentiary use Essential hypertension I10 GERD (gastroesophageal reflux disease) K21.9 Obesity (BMI 30-39.9) E66.9 Hypercholesterolemia E78.00 Recurrent major depression F33.9 Seizure R56.9 BPH (benign prostatic hyperplasia) N40.0 Assessment & Plan Assessment & Plan (1) Diabetes mellitus with hyperglycemia: Comment: [facility] Ophthamolog Code(s): E11.65 - Type 2 diabetes mellitus with hyperglycemia Category: Medical Qualifiers: Diabetes mellitus type: type 2 Diabetes mellitus long term acute care registered nurse insulin use: with penitentiary use Qualified Code(s): E11.65 - Type 2 diabetes mellitus with hyperglycemia; Z79.4 - detention (current) use of insulin Plan: Decrease the amount of carbohydrate intake, pasta, bread, rice and potatoes are all sugar and that is aside from all the sweet stuff, remember that fruits are good but they are Sweet also. Hemoglobin A1c goal of less than 7.0 patient follows up with endocrinology change Trulicity to Ozempic on Lantus at 10 units once a day metformin a 1000 mg twice a day. LDL goal of less than 7.0 (2) Essential hypertension: Code(s): I10 - Essential (primary) hypertension Category: Medical Plan: Continue with blood pressure medication. Decrease salt intake and exercise patient is taking lisinopril 2.5 mg once a day (3) GERD (gastroesophageal reflux disease): Code(s): K21.9 - Gastro-esophageal reflux disease without esophagitis Category: Medical Plan: Avoid the foods that causes that usually spicy foods, tomato products, juices, coffee, soda and foods that your sensitive to. After eating do not lie down, allow 3-4 hours before in lie down. And keep the head of bed above 30 degrees to avoid the acid from going up. (4) Obesity (BMI 30-39.9): Code(s): E66.9 - Obesity, unspecified Category: Medical Plan: Diet and exercise (5) Hypercholesterolemia: Code(s): E78.00 - Pure hypercholesterolemia, unspecified Category: Medical Plan: Avoid fried foods, chicken skin, eggs, butter margarine, pastries and meat. Be it pork or beef they have a lot of cholesterol LDL goal of less than 100 and triglyceride of less than 150 on atorvastatin 40 mg once a day (6) Recurrent major depression: Comment: suicidal ideation 05/2012, Counselling Q 2 weeks Code(s): F33.9 - Major depressive disorder, recurrent, unspecified Category: Medical Plan: Continue with therapy. And discussed about counseling. (7) Seizure: Code(s): R56.9 - Unspecified convulsions Category: Medical Plan: Patient has seen Neurology and continuing with Keppra. 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
[2024-05-23 12:53] VITALS: BP 120/72; PULSE 83; O2SAT 97; BMI 30.9
== END 2024-05-23 13:44 | disposition home or self-care (01) ==
PROVIDERS: PCP Internal Medicine; Visit Provider Internal Medicine
DX: E11.65 Type 2 diabetes mellitus with hyperglycemia (principal); Z79.4 Long term (current) use of insulin; F33.9 Major depressive disorder, recurrent, unspecified; R56.9 Unspecified convulsions; I10 Essential (primary) hypertension; K21.9 Gastro-esophageal reflux disease without esophagitis; E66.811 Obesity, class 1; Z68.30 Body mass index [BMI] 30.0-30.9, adult; E78.00 Pure hypercholesterolemia, unspecified; N40.0 Benign prostatic hyperplasia without lower urinary tract symptoms

== ENCOUNTER → 2024-05-23 12:46 | Outpatient (BNVA) | payer OTHER, SELFPAY | PROVIDERS: PCP Internal Medicine; Visit Provider Internal Medicine | DX: Z23 Encounter for immunization (principal); E11.65 Type 2 diabetes mellitus with hyperglycemia; I10 Essential (primary) hypertension; K21.9 Gastro-esophageal reflux disease without esophagitis; E78.00 Pure hypercholesterolemia, unspecified; E66.9 Obesity, unspecified; Z68.30 Body mass index [BMI] 30.0-30.9, adult; F33.9 Major depressive disorder, recurrent, unspecified; N40.0 Benign prostatic hyperplasia without lower urinary tract symptoms; Z79.4 Long term (current) use of insulin; Z71.3 Dietary counseling and surveillance | CPT/HCPCS: 83036; 90471; 90656; 99212 ==

== ENCOUNTER 2024-06-03 08:49 | Outpatient (REF) | payer OTHER, SELFPAY ==
--- NOTE | ~2024-06-03 | MR_ITS ---
EXAMINATION: MR BRAIN WITHOUT AND WITH CONTRAST CLINICAL INFORMATION: Convulsions. COMPARISON: Brain MRI from 04/21/2024. TECHNIQUE: MRI of the brain was obtained using routine sequences without and following the administration of 8.5 mL of Gadavist intravenous contrast. FINDINGS: Prior left frontal craniotomy. Chronic encephalomalacia of the anterior left greater than right frontal lobes/superior frontal gyri. Bilateral lens extractions. There is also a small region of chronic encephalomalacia in the inferior left cerebellar hemisphere. No focal restricted diffusion is demonstrated to suggest acute or subacute cerebral ischemia. No evidence of acute hemorrhagic products on heme-sensitive imaging. Scattered periventricular and deep white matter T2 FLAIR hyperintensities consistent with mild underlying microangiopathy. Proportional prominence of the ventricles and sulcal spaces without evidence of obstructive hydrocephalus. The third ventricle measures up to 0.7 cm in diameter (unchanged). No abnormal mass effect. No midline shift. The hippocampi are symmetric in size, contour, and signal intensity. The temporal horns appear symmetric. Normal appearance of the pituitary gland. Normal positioning of the cerebellar tonsils. Normal arterial and venous vascular flow voids are present. No abnormal contrast enhancement. Normal, homogeneous marrow signal. Moderate mucosal thickening of the paranasal sinuses. No signal abnormalities within the mastoids. MR/MR head/brain wo/w con IMPRESSION: 1. No acute intracranial abnormalities. No abnormal intracranial enhancement. 2. Chronic encephalomalacia of the left greater than right anterior frontal lobes. Small region of chronic encephalomalacia in the inferior left cerebellar hemisphere. Mild underlying microangiopathy and generalized cerebral volume loss. 3. No additional MRI abnormalities to explain the patient's symptoms. Electronically signed by: Gabino Morales DO 07/20/2024 05:34 AM EST
[2024-06-03] MEDS: gadobutroL 10 ML VIAL IVPUSH (09:47)
== END 2024-06-03 08:50 | disposition home or self-care (01) ==
LOC: HO.MRI 08:49
PROVIDERS: PCP Internal Medicine; Visit Provider Psychiatry & Neurology Neurology
DX: R56.9 Unspecified convulsions (principal); R42 Dizziness and giddiness
CPT/HCPCS: 70553; A9585

== ENCOUNTER 2024-06-11 02:51 | Emergency (ER) | payer OTHER, SELFPAY ==
[2024-06-11 02:56] VITALS: BP 138/72; PULSE 90; RESP 18; TEMP 36.6; O2SAT 98; BMI 30.8
--- NOTE | 2024-06-11 03:21 | ED.GIBLEED ---
HPI - GI Bleed General Chief complaint: GI Bleed Stated complaint: blood in stool Time Seen by Provider: 06/11/24 03:20 Source: patient and family Mode of arrival: ambulatory Limitations: no limitations History of Present Illness ED Provider: penny CANTOR Narrative: Patient with PMH significant for?COPD, insulin-dependent type 2 diabetes, HLD, hx of brain tumor s/p craniotomy in 1990, seizure disorder, hx of CVA in 2019, and GERD who presents to the ED for having bright red blood after moving his bowels when he wiped with rectal no prior history of hemorrhoids no significant abdominal painno nausea no vomiting Related Data Home Medications ?Medication ?Instructions ?Recorded ?Confirmed sertraline 100 mg tablet 100 mg PO DAILY 03/31/24 04/25/24 semaglutide 1 mg/dose (4 mg/3 mL) 1 mg subcut MO 04/21/24 04/25/24 subcutaneous pen injector (Ozempic) Previous Rx's ?Medication ?Instructions ?Recorded nebulizer accessories #1 ea 07/09/21 nebulizers (Compact Compressor #1 ea 07/09/21 Nebulizer) albuterol sulfate 90 mcg/actuation 2 puff PO Q4-6H PRN for wheezing 01/20/23 aerosol inhaler (Ventolin HFA) #18 grams acetaminophen 325 mg capsule 650 mg (2 x 325 mg) PO Q6H PRN 02/04/23 (Tylenol) pain #30 caps pen needle, diabetic 31 gauge x #100 ea 03/13/2310/23 (BD Ultra-Fine Mini Pen Needle) atorvastatin 40 mg tablet 40 mg PO BEDTIME #90 tabs 11/03/23 cholecalciferol (vitamin D3) 50 2,000 unit PO DAILY #90 caps 11/03/23 mcg (2,000 unit) capsule aspirin 81 mg tablet,delayed 81 mg PO DAILY #90 tabs 01/13/24 release levetiracetam 500 mg tablet 500 mg PO Q12H #60 tabs 01/14/24 (Keppra) meclizine 25 mg tablet 25 mg PO TID PRN dizziness #60 tabs 01/14/24 amitriptyline 25 mg tablet 25 mg PO BEDTIME #90 tabs 03/27/24 FreeStyle Scott 3 [place] #1 ea 03/31/24 (blood-glucose meter,continuous) FreeStyle Scott 3 Sensor #9 ea 03/31/24 (blood-glucose sensor) omeprazole 20 mg capsule,delayed 20 mg PO DAILY 90 days #90 caps 04/10/24 release Grab bars for bathroom #2 ea 04/14/24 adult pull ups #100 ea 04/14/24 bed rails #2 ea 04/14/24 hand held shower #1 ea 04/14/24 shower chair #1 ea 04/14/24 shower bench with back #1 ea 04/14/24 gabapentin 300 mg capsule 300 mg PO BID #180 caps 04/27/24 insulin glargine 100 unit/mL (3 10 unit (0.1 mL) subcut DAILY #15 04/27/24 mL) subcutaneous pen (Lantus mL Solostar U-100 Insulin) metformin 1,000 mg tablet 1,000 mg PO BID 90 days #180 tabs 04/27/24 FreeStyle Precision Mike Strips #50 ea 05/03/24 (blood sugar diagnostic) lancets 30 gauge (OneTouch #100 ea 05/03/24 UltraSoft 2 Lancet) fluticasone furoate 200 1 inh inhalation DAILY #60 ea 05/24/24 mcg-vilanterol 25 mcg/dose inhalation powder (Breo Ellipta) lisinopril 2.5 mg tablet 2.5 mg PO DAILY 90 days #90 tabs 05/27/24 montelukast 10 mg tablet 10 mg PO BEDTIME 90 days #90 tabs 05/27/24 (Singulair) hydrocortisone acetate [address] BID #12 ea 06/11/24 rectal suppository (Anusol-HC) Allergies Allergy/AdvReac Type Severity Reaction Status Date / Time aspirin [ASPIRIN] Allergy Intermediate RASH WITH Verified 06/11/24 03:03 HIGH DOSES Penicillins Allergy Mild HIVES Verified 06/11/24 03:03 phenytoin [From Dilantin] Allergy Mild BURNING Verified 06/11/24 03:03 SENSATION IN BODY butalbital [BUTALBITAL] Allergy Unknown HIVES Verified 06/11/24 03:03 thimerosal [THIMEROSAL] Allergy Unknown UNKNOWN Verified 06/11/24 03:03 doxycycline AdvReac Intermediate penile Verified 06/11/24 03:03 rash? Charlotte Allergy Unknown Unknown Uncoded 06/11/24 03:03 MOTRIN Allergy Unknown hives Uncoded 06/11/24 03:03 Review of Systems Review of Systems: Yes all other systems are reviewed and are negative [facility] Past Medical History Medical History Nocturia Pre-syncope Unspecified disorder of ear Seizure Bladder wall thickening Incontinence Lower urinary tract symptoms Enlarged prostate Vertigo Other peripheral vertigo, unspecified ear Insulin long-term use Seizure Frequency of micturition Testicular pain Skin cyst Stroke Lipoma of abdominal wall History of carpal tunnel syndrome BERNARD positive Inguinal hernia, bilateral BPH (benign prostatic hyperplasia) Brain tumor Hypercholesterolemia Obstructive sleep apnea Vitamin D deficiency Obesity (BMI 30-39.9) Vitamin B12 deficiency GERD (gastroesophageal reflux disease) Grand mal seizure disorder Erectile dysfunction Osteoarthritis COPD (chronic obstructive pulmonary disease) Tennis elbow Calcaneal spur, right RLS (restless legs syndrome) Pulmonary nodule Insomnia Essential hypertension Diabetes mellitus with hyperglycemia Migraine Surgical History Hx of carpal tunnel repair History of diverticulosis Hx of colonoscopy History of elbow surgery Hx of foot surgery Hx of brain surgery History of partial gastrectomy History of right inguinal hernia repair Hx of prostate biopsy Family History Family History Father Diabetes Throat cancer Heart disease Mother Ovarian cancer Social History Social History Household Members: Spouse Housing: House Are you a primary childcare administrator to a significant other at home: No Do you presently have visiting nurse or other home services: Yes (VNA) Alcohol intake: never Patient Tobacco Use Status: Never used Tobacco Smoked in Last 30 Days: No e-Cigarette/Vaping Use: Never Used Second Hand Smoke Exposure: No Use of substances other than those prescribed or required for medical reasons: No Advance Directives: Yes Advance Directives on File: Yes Advance Directives Date on File: 06/13/21 service: No Current occupational status: retired Current occupation: rt handed Cognitive needs: No Hearing needs: No Vision needs: No Physical Exam Vital Signs: Vital Signs: Last Vital Signs Temp 98.2 F 06/11/24 04:36 Pulse 74 06/11/24 04:36 Resp 18 06/11/24 04:36 BP 121/66 06/11/24 04:36 Pulse Ox 97 06/11/24 04:36 O2 Del Method Room Air 06/11/24 04:36 BMI result Body Mass Index 30.8 Appearance: Alert. Oriented X3. No acute distress. Eyes: PERRLA, No Nystagmus ENT: Pharynx normal. Oral Mucosa moist Neck: Normal inspection. Neck supple. CVS: Normal heart rate and rhythm. Pulses normal. Respiratory: No respiratory distress. Equal air entry bilateral, no wheezing/rales/rhonchi Abdomen: Soft and nontender. Bowel sounds are present, no mass palpable, no CVA tenderness rectal: No external hemorrhoids small hemorrhoids palpable in the rectum painful small amount of bright red blood on the finger Skin: Skin warm and dry. Normal skin color. Normal skin turgor. Extremities: No lower extremity edema. No calf tenderness Neuro: Oriented X 3. No motor deficit. Medical Decision Making Medical Decision Making [facility] Narrative: Patient with rectal pain with bright red blood no abdominal pain vitals are stable hemoglobin stable likely hemorrhoids as the cause of bleed Differential Diagnosis Differential Diagnoses: The differential diagnosis associated with the presentation includes Diverticulitis/hemorrhoid bleed/ Lab Data [facility] Lab Attestation statement: I reviewed the patient's lab results. 06/11/24 03:25 06/11/24 03:25 Labs: Lab Results 06/11/24 06/11/24 Range/Units 03:25 05:06 WBC 10.8 (4.8-10.8) X10*3/uL RBC 4.02 L (4.60-5.80) X10*6/uL Hgb 11.9 L (14.0-18.0) g/dl Hct 35.0 L (42.0-52.0) % MCV 87.1 (80.0-98.0) fL MCH 29.6 (27.0-33.0) pg MCHC 34.0 (31.0-36.0) g/dl RDW 13.0 (11.0-16.0) % Plt Count 281 D (160-400) X10*3/uL MPV 9.0 L (9.4-12.4) fL Immature Gran % (Auto) 0.3 (0.0-0.4) % Neut % (Auto) 71.5 (45-73) % Lymph % (Auto) 18.3 L (20-40) % Sutton % (Auto) 7.6 (2-11) % Eos % (Auto) 2.1 (0-4) % Baso % (Auto) 0.2 (0-2) % Lymph # (Auto) 2.0 (1.2-4.9) X10*3/uL Sutton # (Auto) 0.8 (0.1-1.2) X10*3/uL Eos # (Auto) 0.2 (0.0-0.4) X10*3/uL Baso # (Auto) 0.0 (0.0-0.2) X10*3/uL Abs Immat Gran (auto) 0.03 (0.00-0.03) X10*3/uL Absolute Neuts (auto) 7.7 (2.0-8.3) x10*3/uL Absolute Nucleated RBC 0.000 (0.0-0.012) X10*3/uL Nucleated RBC % (auto) 0.0 (0.0-0.2) /100WBC PT 12.0 (10.9-12.4) SEC INR 1.0 (0.9-1.1) Sodium 136 (135-145) mmol/L Potassium 4.0 (3.3-5.1) mmol/L Chloride 103 (96-108) mmol/L Carbon Dioxide 22 (22-29) mmol/L Anion Gap 15 (12-20) BUN 9 (9-16) mg/dL Creatinine 1.00 (0.5-1.4) mg/dL Estim Creat Clear Calc 64.3 Estimated GFR > 60 Random Glucose 186 H (60-115) mg/dL Calcium 8.6 (8.4-10.2) mg/dL Total Bilirubin 0.5 (0.0-1.0) mg/dL AST 33 (5-37) U/L ALT 18 (0-40) U/L Alkaline Phosphatase 112 (39-117) U/L Total Protein 6.8 (6.5-8.0) g/dL Albumin 3.7 (3.5-5.0) g/dL Urine Color Yellow Urine Appearance Clear Urine pH 7.0 (5.0-9.0) Ur Specific [place] <= 1.005 (1.005-1.025) Urine Protein Negative (Neg-Trace) mg/dL Urine Glucose (UA) 100 H (Negative) mg/dL Urine Ketones Negative (Negative) mg/dL Urine Blood Negative (Negative) Urine Nitrite Negative (Negative) Ur Leukocyte Esterase Negative (Negative) Urine RBC 0-2 (0-2) /HPF Urine WBC 0-5 (0-5) /HPF Ur Squamous Epith Cells 0-2 (0-2) /HPF Urine Bacteria None Seen (None Seen) Hyaline Casts 0-2 (0-2) /LPF Stool Occult Blood POSITIVE (NEGATIVE) Discharge Plan Discharge Clinical Impression: Bleeding hemorrhoid Patient Disposition: Home, Self-Care Instructions: Hemorrhoids (ED) Additional Instructions: Avoid straining Avoid constipation Anusol suppository twice a day until heals Report to the ER if worsening of the bleeding Prescriptions: New hydrocortisone acetate [Anusol-HC] 25 mg suppository [address] BID Qty: 12 0RF No Action albuterol sulfate [Ventolin HFA] 90 mcg/actuation HFA aerosol inhaler 2 puff PO Q4-6H PRN (Reason: for wheezing) Qty: 18 0RF atorvastatin 40 mg tablet 40 mg PO BEDTIME Qty: 90 3RF cholecalciferol (vitamin D3) 50 mcg (2,000 unit) capsule 2,000 unit PO DAILY Qty: 90 2RF aspirin 81 mg tablet,delayed release (DR/EC) 81 mg PO DAILY Qty: 90 3RF levetiracetam [Keppra] 500 mg tablet 500 mg PO Q12H Qty: 60 5RF meclizine 25 mg tablet 25 mg PO TID PRN (Reason: dizziness) Qty: 60 8RF amitriptyline 25 mg tablet 25 mg PO BEDTIME Qty: 90 1RF omeprazole 20 mg capsule,delayed release(DR/EC) 20 mg PO DAILY 90 Days Qty: 90 1RF (DME) adult pull ups medium See Rx Instructions .Route .MEDSUPPLY Qty: 100 0RF Rx Instructions: As directed (DME) bed rails See Rx Instructions .Route .MEDSUPPLY Qty: 2 0RF Rx Instructions: As directed (DME) Grab bars for bathroom See Rx Instructions .Route .MEDSUPPLY Qty: 2 0RF Rx Instructions: As directed (DME) hand held shower See Rx Instructions .Route .MEDSUPPLY Qty: 1 0RF Rx Instructions: As directed (DME) shower bench with back See Rx Instructions .Route .MEDSUPPLY Qty: 1 0RF Rx Instructions: As directed (DME) shower chair See Rx Instructions .Route .MEDSUPPLY Qty: 1 0RF Rx Instructions: As directed Lantus Solostar U-100 Insulin 100 unit/mL (3 mL) insulin pen 10 unit subcut DAILY Qty: 15 1RF metformin 1,000 mg tablet 1,000 mg PO BID 90 Days Qty: 180 2RF gabapentin 300 mg capsule 300 mg PO BID Qty: 180 1RF (DME) FreeStyle Precision Mike Strips Strip See Rx Instructions .Route Qty: 50 3RF Rx Instructions: Once daily as needed to check blood glucose when CGM reads high or low (DME) lancets [OneTouch UltraSoft 2 Lancet] 30 gauge misc See Rx Instructions .Route Qty: 100 3RF Rx Instructions: DAILY fluticasone furoate-vilanterol [Breo Ellipta] 200-25 mcg/dose blister with device 1 inh inhalation DAILY Qty: 60 2RF lisinopril 2.5 mg tablet 2.5 mg PO DAILY 90 Days Qty: 90 3RF montelukast [Singulair] 10 mg tablet 10 mg PO BEDTIME 90 Days Qty: 90 1RF acetaminophen [Tylenol] 325 mg capsule 650 mg PO Q6H PRN (Reason: pain) Qty: 30 0RF Ozempic 1 mg/dose (4 mg/3 mL) pen injector 1 mg subcut MO (DME) Compact Compressor Nebulizer Misc See Rx Instructions .Route Qty: 1 0RF Rx Instructions: As directed ([facility] nebulizer accessories Kit See Rx Instructions .Route Qty: 1 0RF Rx Instructions: As directed (DME) pen needle, diabetic [BD Ultra-Fine Mini Pen Needle] 31 gauge x 3/16 needle See Rx Instructions .Route Qty: 100 3RF Rx Instructions: As directed Inject LAntus 10 u QD sertraline 100 mg tablet 100 mg PO DAILY (DME) FreeStyle Scott 3 [place] Misc See Rx Instructions .Route Qty: 1 0RF Rx Instructions: As directed (DME) FreeStyle Scott 3 Sensor Device See Rx Instructions .Route Qty: 9 5RF Rx Instructions: As directed change every 14 days Interventions: ED Discharge Assessment Last Done: 06/11/24 05:19 Print Language: Sinhala
[2024-06-11 03:35] LABS: Basophils Percent Auto 0.2 % (0-2); Eosinophils Absolute Auto 0.2 X10*3/uL (0.0-0.4); Eosinophils Percent Auto 2.1 % (0-4); Hemoglobin 11.9 g/dl (14.0-18.0); Imm Gran Abs Auto 0.03 X10*3/uL (0.00-0.03); Imm Gran Pct Auto 0.3 % (0.0-0.4); Lymphocytes Percent Auto 18.3 % (20-40); MANUAL DIFF FLAG NO; Mean Corpuscular Hemoglobin 29.6 pg (27.0-33.0); Mean Corpuscular Volume 87.1 fL (80.0-98.0); Monocytes Absolute Auto 0.8 X10*3/uL (0.1-1.2); Monocytes Percent Auto 7.6 % (2-11); Neutrophils Absolute Auto 7.7 x10*3/uL (2.0-8.3); Neutrophils Percent Auto 71.5 % (45-73); Platelet Count 281 X10*3/uL (160-400); Red Blood Count 4.02 X10*6/uL (4.60-5.80); White Blood Count 10.8 X10*3/uL (4.8-10.8)
[2024-06-11 03:36] LABS: Appearance Urine Clear; Color Urine Yellow; Glucose Urine UA 100 mg/dL (Negative); Leukocyte Esterase Urine Negative (Negative); Nitrite Urine Negative (Negative); Specific Gravity - Urine <= 1.005 (1.005-1.025); Urine Blood Negative (Negative); Urine Ketones Negative (Negative); Urine Protein Negative (Neg-Trace)
[2024-06-11 03:38] LABS: Bacteria Urine None Seen (None Seen); Hyaline Casts Urine 0-2 /LPF (0-2); RBC Urine 0-2 /HPF (0-2); Squamous Epithelial Cell Urine 0-2 /HPF (0-2); WBC Urine 0-5 /HPF (0-5)
[2024-06-11 03:53] LABS: Alanine Aminotransferase 18 U/L (0-40); Albumin Level 3.7 g/dL (3.5-5.0); Alkaline Phosphatase 112 U/L (39-117); Anion Gap 15 (12-20); Aspartate Amino Transferase 33 U/L (5-37); Bilirubin Total 0.5 mg/dL (0.0-1.0); Blood Urea Nitrogen 9 mg/dL (9-16); Calcium 8.6 mg/dL (8.4-10.2); Carbon Dioxide 22 mmol/L (22-29); Chloride 103 mmol/L (96-108); Creatinine Clr Calc Pharmacy 64.3; Estimated Glomerular Filt Rate > 60; Glucose Random 186 mg/dL (60-115); Sodium 136 mmol/L (135-145); Total Protein 6.8 g/dL (6.5-8.0)
[2024-06-11 04:00] VITALS: BP 142/74; PULSE 88; RESP 18; O2SAT 98
[2024-06-11 04:36] VITALS: BP 121/66; PULSE 74; RESP 18; TEMP 36.8; O2SAT 97
[2024-06-11 05:11] LABS: OBS Int Ctl Valid YES; OBS1 POSITIVE (NEGATIVE)
[2024-06-11 05:19] VITALS: BP 121/66; PULSE 74; RESP 18; TEMP 36.8; O2SAT 97
== END 2024-06-11 05:19 | disposition home or self-care (01) ==
PROVIDERS: Emergency Provider Internal Medicine; PCP Internal Medicine
DX: K64.9 Unspecified hemorrhoids (principal); J44.9 Chronic obstructive pulmonary disease, unspecified; E11.9 Type 2 diabetes mellitus without complications; I10 Essential (primary) hypertension; E78.00 Pure hypercholesterolemia, unspecified; Z86.73 Personal history of transient ischemic attack (TIA), and cerebral infarction without residual deficits; Z79.4 Long term (current) use of insulin; Z79.02 Long term (current) use of antithrombotics/antiplatelets; Z79.899 Other long term (current) drug therapy; Z79.82 Long term (current) use of aspirin
CPT/HCPCS: 36415; 80053; 81001; 82272; 85025; 85610; 99283; 99284

== ENCOUNTER 2024-07-19 10:34 | Outpatient (REF) | payer OTHER, SELFPAY | END 2024-07-19 10:35 | disposition home or self-care (01) | LOC: HO.HOSX 10:34 | PROVIDERS: PCP Internal Medicine; Visit Provider Orthopaedic Surgery | DX: M19.031 Primary osteoarthritis, right wrist (principal); Z98.890 Other specified postprocedural states; E11.65 Type 2 diabetes mellitus with hyperglycemia; Z79.4 Long term (current) use of insulin | CPT/HCPCS: 20605; 77002; 99212; J0665; J1010 ==

== ENCOUNTER 2024-07-19 10:34 | Outpatient (AMB) | payer OTHER, SELFPAY ==
--- NOTE | 2024-07-19 11:17 | A.OFFVIS_ITS ---
Vital Signs 07/19/24 11:18 Height 5 ft 4 in Weight 179 lb BMI 30.7 Intake Visit Reasons: OV - right wrist OA, last injection 08/26/23 Intake Note: Geovanny is a 74 year old right hand dominant male who presents to the office today for a follow up visit for right wrist OA, last right wrist was done on 03/16/24. Patient reports injection lasted about 2-3 weeks and would like to repeat today. Allergies aspirin [ASPIRIN] Allergy (Intermediate, Verified 07/19/24 11:23) RASH WITH HIGH DOSES Penicillins Allergy (Mild, Verified 07/19/24 11:23) HIVES phenytoin [From Dilantin] Allergy (Mild, Verified 07/19/24 11:23) BURNING SENSATION IN BODY butalbital [BUTALBITAL] Allergy (Unknown, Verified 07/19/24 11:23) HIVES thimerosal [THIMEROSAL] Allergy (Unknown, Verified 07/19/24 11:23) UNKNOWN doxycycline Adverse Reaction (Intermediate, Verified 07/19/24 11:23) penile rash? Charlotte Allergy (Unknown, Uncoded 07/19/24 11:23) Unknown MOTRIN Allergy (Unknown, Uncoded 07/19/24 11:23) hives HPI HPI OV - right wrist OA, last injection 08/26/23: Details: Geovanny is a 74 year old right hand dominant primarily Yoruba speaking Diabetic man who returns to discuss his right wrist OA. Again he is status post a proximal row carpectomy at an outside facility. He last received an injection on 03/16/24, with some relief for ~3 weeks. It sounds like he had to change a tire shortly after his last injection. He continues to have pain and swelling about his wrist, worse with overuse or heavy lifting activities. His pain has worsened in the last few months and he is now wearing his wrist brace more often to help. He says his pain is bad enough now that he is unable to sleep. He struggles to modify his activities and not overuse his wrist. His most recent HgA1c was 8.3% on 05/23/24. He denies any smoking or vaping. 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 [facility] Medical History Nocturia Pre-syncope Unspecified disorder of ear Seizure Bladder wall thickening Incontinence Lower urinary tract symptoms Enlarged prostate Vertigo Other peripheral vertigo, unspecified ear Insulin long-term use Seizure Frequency of micturition Testicular pain Skin cyst Stroke Lipoma of abdominal wall History of carpal tunnel syndrome BERNARD positive Inguinal hernia, bilateral BPH (benign prostatic hyperplasia) Brain tumor Hypercholesterolemia Obstructive sleep apnea Vitamin D deficiency Obesity (BMI 30-39.9) Vitamin B12 deficiency GERD (gastroesophageal reflux disease) Grand mal seizure disorder Erectile dysfunction Osteoarthritis COPD (chronic obstructive pulmonary disease) Tennis elbow Calcaneal spur, right RLS (restless legs syndrome) Pulmonary nodule Insomnia Essential hypertension Diabetes mellitus with hyperglycemia Migraine Surgical History Hx of carpal tunnel repair History of diverticulosis Hx of colonoscopy History of elbow surgery Hx of foot surgery Hx of brain surgery History of partial gastrectomy History of right inguinal hernia repair Hx of prostate biopsy Family History Father Diabetes Throat cancer Heart disease Mother Ovarian cancer Social History Household Members: Spouse Housing: House Are you a primary career placement services counselor to a significant other at home: No Do you presently have visiting nurse or other home services: Yes (VNA) Alcohol intake: never Patient Tobacco Use Status: Never used Tobacco e-Cigarette/Vaping Use: Never Used Second Hand Smoke Exposure: No Advance Directives Date on File: 06/13/21 service: No Current occupational status: retired Current occupation: rt handed Cognitive needs: No Hearing needs: No Vision needs: No Physical Exam Vital Signs: BMI result Body Mass Index 30.7 Const General: no acute distress and alert Orientation/consciousness: patient oriented x3 Neuro General: patient oriented x3 Extrem Other: Evaluation of Right Upper Extremity: Neuro: Median, ulnar, radial nerves motor and sensory grossly intact with normal sensation to all digits. No thenar or intrinsic wasting. Vascular: Cap refill brisk. ROM: He can make a fist and he can extend all of his digits. No locking or catching He does have some arthritic changes in his digits Right wrist ROM ~40 degrees of extension and ~30-40 degrees of flexion. Good prono-supination Tenderness over the dorsal radial aspect of his wrist/radiocarpal joint Mild swelling about the wrist Skin: He has a well-healed longitudinal scar over the dorsal aspect of his wrist. No erythema, warmth or evidence of infection Radiographs: 3 views of the right wrist from 08/26/23 were reviewed by me today in clinic. They show that he has had a proximal row carpectomy. Radiographs are also showing some loss of space at the radial capitate joint. Significant atherosclerosis. He has some early basal joint arthritis. Psych Appearance: grossly normal Affect: normal affect Attitude: cooperative Office Procedures AMB Fracture Care Details: no fracture, injection , FluoroScan for needle placement [id number] Fracture Billing Code: Fracture Billing Code Assessment & Plan Assessment & Plan (1) Arthritis of right wrist: Code(s): M19.031 - Primary osteoarthritis, right wrist Category: Medical (2) Status post proximal row carpectomy of wrist: Code(s): Z98.890 - Other specified postprocedural states Category: Medical (3) Diabetes mellitus with hyperglycemia: Comment: [facility] Ophthamology Code(s): E11.65 - Type 2 diabetes mellitus with hyperglycemia Category: Medical Qualifiers: Diabetes mellitus exterminator helper insulin use: with mcc use Diabetes mellitus type: type 2 Qualified Code(s): E11.65 - Type 2 diabetes mellitus with hyperglycemia; Z79.4 - continuous churn buttermaker (current) use of insulin Plan Assessment & Plan: 1. Right wrist osteoarthritis, S/P injection Date of injection: 07/19/24, 03/16/24, 08/26/23 2. S/P right proximal row carpectomy DOS: ~2018 at [facility] 3. S/P right carpal tunnel release DOS: ~2017 at [facility] Normal sensation in median nerve distribution today. I educated the patient and his about these conditions We talked about the importance of activity modification. I reminded him that while his proximal row carpectomy help preserve motion and decreased his pain, he does not have a normal wrist. I reminded him that heavy or impact type activities are likely to cause him pain. He has braces at home to use when symptomatic. At this point surgical options would likely involve a fairly large procedure like a total wrist arthrodesis which would severely limit his right wrist range of motion and use. He understands that a wrist arthrodesis is only to be undertaken if absolutely necessary. The patient would like to proceed with a repeat injection today Injection #1: The risks and benefits of a steroid injection including but not limited to risk of damage to blood vessels, nerve, tendon, infection, skin bleaching, persistent or worsening pain, and failure to improve symptoms were discussed with the patient and they wish to proceed with the steroid injection. Once consent was obtained the skin over the dorsum of the Right was sterilely prepped. The joint was then injected with a combination of 1 mL of (40 mg/ml} Depo-Medrol and 1% plain Lidocaine, using the mini C-arm for needle guidance. The patient appears to have tolerated the procedure well and with no complications. He had good early relief before leaving clinic today. He knows that they may not have another steroid injection into this joint for least 4 months. Scribed for Zulema Overton MD by Deangelo Rodriguez, hospitalist medical director, on 07/19/24 at 11:40 AM, EST. Orders: Orders FL guided needle placement Today M19.031 - Primary osteoarthritis, right wrist, Z98.890 - Other specified postprocedural states Coding Level of Care Code Est Pt Level 3 (68947) Diagnoses Arthritis of right wrist M19.031 Status post proximal row carpectomy of wrist Z98.890 Type 2 diabetes mellitus with hyperglycemia, with long-term current use of insulin E11.65; Z79.4 Diabetes mellitus exterminator helper insulin use: with mcc use Diabetes mellitus type: type 2 CPT Codes Fracture Care - Fracture Billing Code: Fracture Billing Code ([id number])
[2024-07-19 11:18] VITALS: BMI 30.7
== END 2024-07-19 11:58 | disposition home or self-care (01) ==
PROVIDERS: PCP Internal Medicine; Visit Provider Orthopaedic Surgery
DX: M19.031 Primary osteoarthritis, right wrist (principal); Z98.890 Other specified postprocedural states; E11.65 Type 2 diabetes mellitus with hyperglycemia; Z79.4 Long term (current) use of insulin
CPT/HCPCS: 20605; 77002; 99213

== ENCOUNTER 2024-08-08 10:09 | Emergency (ER) | payer OTHER, SELFPAY ==
--- NOTE | ~2024-08-08 | XR_ITS ---
EXAMINATION: XR CHEST CLINICAL INFORMATION: ?aspiration COMPARISON: CT chest 04/21/2024 TECHNIQUE: Frontal view of the chest was obtained. FINDINGS: No significant abnormality is noted involving the heart, lungs, mediastinum, bony thorax or soft tissues. XR/XR chest 1V IMPRESSION: Unremarkable chest examination. Electronically signed by: Vinny Hensley MD 08/08/2024 12:49 PM [facility]
--- NOTE | ~2024-08-08 | CT_ITS ---
EXAMINATION: CT brain, CT cervical spine and CT facial bones. CLINICAL INDICATION: Fall. COMPARISON: CT cervical spine and CT brain 04/21/2024. TECHNIQUE: 5 mm thin axial and reformatted 2 mm thin sagittal and coronal images of brain were obtained. Axial 3 mm thin and reformatted 2 minute thin sagittal and coronal images of cervical spine were obtained. Lastly axial 3 mm thin and reformatted 1.5 mm thin sagittal and coronal images of facial bones were obtained. [facility] [address] CT was performed utilizing dose optimization techniques such as iterative reconstruction, adjustment in MA and/or KV according to patient protocol and automated exposure control. FINDINGS: Brain: There is no acute intra-axial, extra-axial bleed, masses or midline shift. There is no acute infarction evolution. There is no acute infarction evolution. There is left frontal lobe hypodensity likely diagnosis from previous intervention. There is a left frontal craniotomy. The lateral ventricles are symmetrical in size and configuration without enlargement. No abnormality seen in posterior fossa. Bone windows reveal no calvarial abnormality except for left frontal craniotomy changes no scalp soft tissue abnormality seen. The paranasal sinuses and mastoid air cells are well-aerated. Cervical spine: There is mild straightening of cervical lordosis. The vertebral heights, alignment are normal. There is mild loss of C6-7 disc height with ventral and posterior spondylosis. No ventral spondylosis seen in the rest of the cervical spine from C3-4 through C6/7 disc level. The craniovertebral junction and this C1-C2 alignment is normal. No visible acute fracture, dislocation or subluxation seen. There is mild left C2-3, C3-4, C4-5 and C6-7 facet joint arthropathy. No aggressive lytic or sclerotic process seen. The prevertebral and paravertebral soft tissues are normal. There is soft tissue debris or lesion in the right trachea on axial slice 49/14. The lung apices are clear. Facial bones: There is mild mucoperiosteal thickening bilateral frontal, maxillary and ethmoid sinuses from chronic inflammatory process. Mild obstruction of left ostiomeatal complex is seen. Rest of the drainage pathways are patent. Mild deviation of posterior nasal to the left anterior nasal to the right with a bony spur is noted. The nasal bone and the maxillofacial bones are intact. No fracture visualized. Bilateral TM joints and the visualized mandible is intact. CT/CT head/brain wo IV con IMPRESSION: No acute intracranial process seen except for left frontal lobe gliosis and left frontal craniotomy change. Reversal of cervical lordosis with degenerative disc changes with left facet joint arthropathy as described above. No visible acute fracture or dislocation seen. Mild chronic inflammatory changes of bilateral ethmoid, frontal and maxillary sinuses. No visible maxillofacial, nasal or mandibular fractures seen. Electronically signed by: Vinny Hensley MD 08/08/2024 11:55 AM [place]
--- NOTE | ~2024-08-08 | CT_ITS ---
EXAMINATION: CT brain, CT cervical spine and CT facial bones. CLINICAL INDICATION: Fall. COMPARISON: CT cervical spine and CT brain 04/21/2024. TECHNIQUE: 5 mm thin axial and reformatted 2 mm thin sagittal and coronal images of brain were obtained. Axial 3 mm thin and reformatted 2 minute thin sagittal and coronal images of cervical spine were obtained. Lastly axial 3 mm thin and reformatted 1.5 mm thin sagittal and coronal images of facial bones were obtained. [facility] [address] CT was performed utilizing dose optimization techniques such as iterative reconstruction, adjustment in MA and/or KV according to patient protocol and automated exposure control. FINDINGS: Brain: There is no acute intra-axial, extra-axial bleed, masses or midline shift. There is no acute infarction evolution. There is no acute infarction evolution. There is left frontal lobe hypodensity likely diagnosis from previous intervention. There is a left frontal craniotomy. The lateral ventricles are symmetrical in size and configuration without enlargement. No abnormality seen in posterior fossa. Bone windows reveal no calvarial abnormality except for left frontal craniotomy changes no scalp soft tissue abnormality seen. The paranasal sinuses and mastoid air cells are well-aerated. Cervical spine: There is mild straightening of cervical lordosis. The vertebral heights, alignment are normal. There is mild loss of C6-7 disc height with ventral and posterior spondylosis. No ventral spondylosis seen in the rest of the cervical spine from C3-4 through C6/7 disc level. The craniovertebral junction and this C1-C2 alignment is normal. No visible acute fracture, dislocation or subluxation seen. There is mild left C2-3, C3-4, C4-5 and C6-7 facet joint arthropathy. No aggressive lytic or sclerotic process seen. The prevertebral and paravertebral soft tissues are normal. There is soft tissue debris or lesion in the right trachea on axial slice 49/14. The lung apices are clear. Facial bones: There is mild mucoperiosteal thickening bilateral frontal, maxillary and ethmoid sinuses from chronic inflammatory process. Mild obstruction of left ostiomeatal complex is seen. Rest of the drainage pathways are patent. Mild deviation of posterior nasal to the left anterior nasal to the right with a bony spur is noted. The nasal bone and the maxillofacial bones are intact. No fracture visualized. Bilateral TM joints and the visualized mandible is intact. CT/CT facial bones wo IV con IMPRESSION: No acute intracranial process seen except for left frontal lobe gliosis and left frontal craniotomy change. Reversal of cervical lordosis with degenerative disc changes with left facet joint arthropathy as described above. No visible acute fracture or dislocation seen. Mild chronic inflammatory changes of bilateral ethmoid, frontal and maxillary sinuses. No visible maxillofacial, nasal or mandibular fractures seen. Electronically signed by: Vinny Hensley MD 08/08/2024 11:55 AM [place]
--- NOTE | ~2024-08-08 | CT_ITS ---
EXAMINATION: CT brain, CT cervical spine and CT facial bones. CLINICAL INDICATION: Fall. COMPARISON: CT cervical spine and CT brain 04/21/2024. TECHNIQUE: 5 mm thin axial and reformatted 2 mm thin sagittal and coronal images of brain were obtained. Axial 3 mm thin and reformatted 2 minute thin sagittal and coronal images of cervical spine were obtained. Lastly axial 3 mm thin and reformatted 1.5 mm thin sagittal and coronal images of facial bones were obtained. [facility] 14[address] CT was performed utilizing dose optimization techniques such as iterative reconstruction, adjustment in MA and/or KV according to patient protocol and automated exposure control. FINDINGS: Brain: There is no acute intra-axial, extra-axial bleed, masses or midline shift. There is no acute infarction evolution. There is no acute infarction evolution. There is left frontal lobe hypodensity likely diagnosis from previous intervention. There is a left frontal craniotomy. The lateral ventricles are symmetrical in size and configuration without enlargement. No abnormality seen in posterior fossa. Bone windows reveal no calvarial abnormality except for left frontal craniotomy changes no scalp soft tissue abnormality seen. The paranasal sinuses and mastoid air cells are well-aerated. Cervical spine: There is mild straightening of cervical lordosis. The vertebral heights, alignment are normal. There is mild loss of C6-7 disc height with ventral and posterior spondylosis. No ventral spondylosis seen in the rest of the cervical spine from C3-4 through C6/7 disc level. The craniovertebral junction and this C1-C2 alignment is normal. No visible acute fracture, dislocation or subluxation seen. There is mild left C2-3, C3-4, C4-5 and C6-7 facet joint arthropathy. No aggressive lytic or sclerotic process seen. The prevertebral and paravertebral soft tissues are normal. There is soft tissue debris or lesion in the right trachea on axial slice 49/14. The lung apices are clear. Facial bones: There is mild mucoperiosteal thickening bilateral frontal, maxillary and ethmoid sinuses from chronic inflammatory process. Mild obstruction of left ostiomeatal complex is seen. Rest of the drainage pathways are patent. Mild deviation of posterior nasal to the left anterior nasal to the right with a bony spur is noted. The nasal bone and the maxillofacial bones are intact. No fracture visualized. Bilateral TM joints and the visualized mandible is intact. CT/CT cervical spine wo IV con IMPRESSION: No acute intracranial process seen except for left frontal lobe gliosis and left frontal craniotomy change. Reversal of cervical lordosis with degenerative disc changes with left facet joint arthropathy as described above. No visible acute fracture or dislocation seen. Mild chronic inflammatory changes of bilateral ethmoid, frontal and maxillary sinuses. No visible maxillofacial, nasal or mandibular fractures seen. Electronically signed by: Vinny Hensley MD 08/08/2024 11:55 AM [place]
[2024-08-08 10:14] VITALS: BP 139/70; PULSE 84; RESP 20; TEMP 36.7; O2SAT 100
[2024-08-08 10:31] LABS: MANUAL DIFF FLAG NO
[2024-08-08 10:37] LABS: Basophils Percent Auto 0.2 % (0-2); Eosinophils Absolute Auto 0.3 X10*3/uL (0.0-0.4); Eosinophils Percent Auto 4.3 % (0-4); Hematocrit 37.6 % (42.0-52.0); Hemoglobin 12.5 g/dl (14.0-18.0); Imm Gran Abs Auto 0.02 X10*3/uL (0.00-0.03); Imm Gran Pct Auto 0.3 % (0.0-0.4); Lymphocytes Absolute Auto 1.5 X10*3/uL (1.2-4.9); Lymphocytes Percent Auto 24.6 % (20-40); Mean Corpuscular HGB Conc 33.2 g/dl (31.0-36.0); Mean Corpuscular Hemoglobin 29.3 pg (27.0-33.0); Mean Corpuscular Volume 88.3 fL (80.0-98.0); Mean Platelet Volume 9.2 fL (9.4-12.4); Monocytes Absolute Auto 0.4 X10*3/uL (0.1-1.2); Monocytes Percent Auto 6.6 % (2-11); Neutrophils Absolute Auto 3.9 x10*3/uL (2.0-8.3); Platelet Count 232 X10*3/uL (160-400); Red Blood Count 4.26 X10*6/uL (4.60-5.80); Red Cell Distribution Width 12.7 % (11.0-16.0); White Blood Count 6.1 X10*3/uL (4.8-10.8)
[2024-08-08 10:49] LABS: Alanine Aminotransferase 31 U/L (0-40); Albumin Level 3.6 g/dL (3.5-5.0); Alkaline Phosphatase 142 U/L (39-117); Anion Gap 9 (12-20); Aspartate Amino Transferase 46 U/L (5-37); Bilirubin Total 0.4 mg/dL (0.0-1.0); Blood Urea Nitrogen 7 mg/dL (9-16); Calcium 8.8 mg/dL (8.4-10.2); Carbon Dioxide 28 mmol/L (22-29); Chloride 102 mmol/L (96-108); Creatinine Clr Calc Pharmacy 54.3; Estimated Glomerular Filt Rate > 60; Glucose Random 323 mg/dL (60-115); Potassium 4.4 mmol/L (3.3-5.1); Sodium 135 mmol/L (135-145); Total Protein 6.7 g/dL (6.5-8.0)
--- NOTE | 2024-08-08 11:18 | ED.FALL ---
HPI - Fall General Chief Complaint: Fall Stated Complaint: L Side Facial Pain S/P Fall 08/08/24 Time Seen by Provider: 08/08/24 11:07 Source: patient, family and old records reviewed Mode of arrival: ambulatory Limitations: no limitations History of Present Illness ED Provider: NATALIE CANTOR Narrative: 74 yo male with PMH of BPH, vertigo, seizures, arthritis, asthma, DM, HLD, stroke, migraines not on blood thinners here with c/o sleeping and falling out of bed. No seizure reported was there. He hit the floor and his eyes were closed then when he woke up he asked her where he was. He was fine before bed. He is alert and oriented x 3 on arrival. He c/o pain to the R mandible but can open the jaw. He has no bleeding in the mouth. He has no trunk or ext injury. MD complaint: fall Onset (ago): minute(s) ([employer]) Fall from: out of bed Fall witnessed: yes, by family Place fall occurred: home Loss of consciousness: yes Length of LOC: second(s) Prolonged down time: no Symptoms prior to fall: none Context: other (fell out of bed) Location of injury: face Severity: moderate Quality: aching Associated symptoms (after fall): denies Related Data Home Medications ?Medication ?Instructions ?Recorded ?Confirmed sertraline 100 mg tablet 100 mg PO DAILY 03/31/24 04/25/24 semaglutide 1 mg/dose (4 mg/3 mL) 1 mg subcut MO 04/21/24 04/25/24 subcutaneous pen injector (Ozempic) Previous Rx's ?Medication ?Instructions ?Recorded nebulizer accessories #1 ea 07/09/21 nebulizers (Compact Compressor #1 ea 07/09/21 Nebulizer) albuterol sulfate 90 mcg/actuation 2 puff PO Q4-6H PRN for wheezing 01/20/23 aerosol inhaler (Ventolin HFA) #18 grams acetaminophen 325 mg capsule 650 mg (2 x 325 mg) PO Q6H PRN 02/04/23 (Tylenol) pain #30 caps pen needle, diabetic 31 gauge x #100 ea 03/13/23/16 (BD Ultra-Fine Mini Pen Needle) atorvastatin 40 mg tablet 40 mg PO BEDTIME #90 tabs 11/03/23 aspirin 81 mg tablet,delayed 81 mg PO DAILY #90 tabs 01/13/24 release meclizine 25 mg tablet 25 mg PO TID PRN dizziness #60 tabs 01/14/24 FreeStyle Scott 3 [place] #1 ea 03/31/24 (blood-glucose meter,continuous) FreeStyle Scott 3 Sensor #9 ea 03/31/24 (blood-glucose sensor) Grab bars for bathroom #2 ea 04/14/24 adult pull ups #100 ea 04/14/24 bed rails #2 ea 04/14/24 hand held shower #1 ea 04/14/24 shower chair #1 ea 04/14/24 shower bench with back #1 ea 04/14/24 gabapentin 300 mg capsule 300 mg PO BID #180 caps 04/27/24 insulin glargine 100 unit/mL (3 10 unit (0.1 mL) subcut DAILY #15 04/27/24 mL) subcutaneous pen (Lantus mL Solostar U-100 Insulin) metformin 1,000 mg tablet 1,000 mg PO BID 90 days #180 tabs 04/27/24 FreeStyle Precision Mike Strips #50 ea 05/03/24 (blood sugar diagnostic) lancets 30 gauge (OneTouch #100 ea 05/03/24 UltraSoft 2 Lancet) fluticasone furoate 200 1 inh inhalation DAILY #60 ea 05/24/24 mcg-vilanterol 25 mcg/dose inhalation powder (Breo Ellipta) lisinopril 2.5 mg tablet 2.5 mg PO DAILY 90 days #90 tabs 05/27/24 montelukast 10 mg tablet 10 mg PO BEDTIME 90 days #90 tabs 05/27/24 (Singulair) hydrocortisone acetate 25 mg 25 mg NC BID #12 ea 06/11/24 rectal suppository (Anusol-HC) amitriptyline 25 mg tablet 25 mg PO BEDTIME #90 tabs 07/10/24 cholecalciferol (vitamin D3) 50 2,000 unit PO DAILY #90 caps 07/13/24 mcg (2,000 unit) capsule levetiracetam 500 mg tablet 500 mg PO Q12H #180 tabs 07/13/24 omeprazole 20 mg capsule,delayed 20 mg PO DAILY 90 days #90 caps 07/13/24 release Allergies Allergy/AdvReac Type Severity Reaction Status Date / Time aspirin [ASPIRIN] Allergy Intermediate RASH WITH Verified 08/08/24 10:15 HIGH DOSES Penicillins Allergy Mild HIVES Verified 08/08/24 10:15 phenytoin [From Dilantin] Allergy Mild BURNING Verified 08/08/24 10:15 SENSATION IN BODY butalbital [BUTALBITAL] Allergy Unknown HIVES Verified 08/08/24 10:15 thimerosal [THIMEROSAL] Allergy Unknown UNKNOWN Verified 08/08/24 10:15 doxycycline AdvReac Intermediate penile Verified 08/08/24 10:15 rash? [place] Allergy Unknown Unknown Uncoded 08/08/24 10:15 MOTRIN Allergy Unknown hives Uncoded 08/08/24 10:15 Review of Systems Review of Systems: Constitutional : No Fever, No Chills, No Fatigue ENT/Mouth : No sore throat, No Rhinorrhea Eyes: No Eye Pain, No Swelling, No Redness Cardiovascular : No Chest Pain, No SOB, No Dyspnea on Exertion Respiratory : No Cough, No Sputum Gastrointestinal : No Nausea, No Vomiting, No Diarrhea, No abdominal Pain Genitourinary : No Dysuria, No Urinary Frequency, No Hematuria, Musculoskeletal : No joint pain, No Myalgias, No Joint Swelling Skin : No Skin Lesions, No rash Neuro : No Weakness, No Numbness, No Dizziness, positive Headache, pos jaw pain All other systems reviewed and are negative PMFSH Past Medical History Attestation statement: The following information was validated with the patient. Source: old records reviewed Medical History Nocturia Pre-syncope Unspecified disorder of ear Seizure Bladder wall thickening Incontinence Lower urinary tract symptoms Enlarged prostate Vertigo Other peripheral vertigo, unspecified ear Insulin long-term use Seizure Frequency of micturition Testicular pain Skin cyst Stroke Lipoma of abdominal wall History of carpal tunnel syndrome BERNARD positive Inguinal hernia, bilateral BPH (benign prostatic hyperplasia) Brain tumor Hypercholesterolemia Obstructive sleep apnea Vitamin D deficiency Obesity (BMI 30-39.9) Vitamin B12 deficiency GERD (gastroesophageal reflux disease) Grand mal seizure disorder Erectile dysfunction Osteoarthritis COPD (chronic obstructive pulmonary disease) Tennis elbow Calcaneal spur, right RLS (restless legs syndrome) Pulmonary nodule Insomnia Essential hypertension Diabetes mellitus with hyperglycemia Migraine Surgical History Hx of carpal tunnel repair History of diverticulosis Hx of colonoscopy History of elbow surgery Hx of foot surgery Hx of brain surgery History of partial gastrectomy History of right inguinal hernia repair Hx of prostate biopsy Family History Family History Father Diabetes Throat cancer Heart disease Mother Ovarian cancer Social History Social History Household Members: Spouse Housing: House Are you a primary director career to a significant other at home: No Do you presently have visiting nurse or other home services: Yes ([facility]) Alcohol intake: never Patient Tobacco Use Status: Never used Tobacco Smoked in Last 30 Days: No e-Cigarette/Vaping Use: Never Used Second Hand Smoke Exposure: No Use of substances other than those prescribed or required for medical reasons: No Advance Directives: Yes Advance Directives on File: Yes Advance Directives Date on File: 06/13/21 service: No Current occupational status: retired Current occupation: rt handed Cognitive needs: No Hearing needs: No Vision needs: No Physical Exam Vital Signs: Vital Signs: Last Vital Signs Temp 98.1 F 08/08/24 10:14 Pulse 84 08/08/24 10:14 Resp 20 08/08/24 10:14 BP 139/70 08/08/24 10:14 Pulse Ox 100 08/08/24 10:14 O2 Del Method Room Air 08/08/24 10:14 BMI result Body Mass Index 30.0 Appearance: Alert. Oriented X3. No acute distress. Eyes: Pupils equal, round and reactive to light. ENT: Pharynx normal. no trismus no blood seen, no casey sign or racoon eyes, ttp along R mandible at the angle Neck: Normal inspection. Neck supple. CVS: Normal heart rate and rhythm. Pulses normal. Respiratory: No respiratory distress. Breath sounds normal. Abdomen: Soft and nontender. Skin: Skin warm and dry. Normal skin color. Normal skin turgor. Extremities: No lower extremity edema. No calf ttp Neuro: Oriented X 3. No motor deficit. No sensory deficit. Medications Administered Discontinued Medications Generic Name Dose Route Start Last Admin Trade Name Freq PRN Reason Stop Dose Admin Hydrocodone Bitart/Acetaminophen 1 tab 08/08/24 11:15 08/08/24 12:45 Hydrocodone Bit/Acetam 5/325 Tablet PO 08/08/24 11:16 1 tab ONCE ONE Administration Medical Decision Making Medical Decision Making [facility] Narrative: 74 yo male with PMH of BPH, vertigo, seizures, arthritis, asthma, DM, HLD, stroke, migraines not on blood thinners here with c/o fall out of bed with possible LOC no seizures reported was present. He has no symptoms other than R jaw pain but no bleeding or trismus - at this time basic labs, CT scan of head, neck, face. PO pain control. No CP/SOB to suggest ACS or VTE event Differential Diagnosis Differential Diagnoses: The differential diagnosis associated with the presentation includes jaw fracture, contusion, seizure, syncope Admission/Observation Consideration of admission/observation: Escalation of care including admission/observation considered GCS 15, no trismus no signs of fracture, at baseline, no seizures reported to stay with patient stable for DC Lab Data [facility] Lab Attestation statement: I reviewed the patient's lab results. 08/08/24 10:27 08/08/24 10:27 Labs: Lab Results 08/08/24 Range/Units 10:27 WBC 6.1 (4.8-10.8) X10*3/uL RBC 4.26 L (4.60-5.80) X10*6/uL Hgb 12.5 L (14.0-18.0) g/dl Hct 37.6 L (42.0-52.0) % MCV 88.3 (80.0-98.0) fL MCH 29.3 (27.0-33.0) pg MCHC 33.2 (31.0-36.0) g/dl RDW 12.7 (11.0-16.0) % Plt Count 232 (160-400) X10*3/uL MPV 9.2 L (9.4-12.4) fL Immature Gran % (Auto) 0.3 (0.0-0.4) % Neut % (Auto) 64.0 (45-73) % Lymph % (Auto) 24.6 (20-40) % [place] % (Auto) 6.6 (2-11) % Eos % (Auto) 4.3 H (0-4) % Baso % (Auto) 0.2 (0-2) % Lymph # (Auto) 1.5 (1.2-4.9) X10*3/uL [place] # (Auto) 0.4 (0.1-1.2) X10*3/uL Eos # (Auto) 0.3 (0.0-0.4) X10*3/uL Baso # (Auto) 0.0 (0.0-0.2) X10*3/uL Abs Immat Gran (auto) 0.02 (0.00-0.03) X10*3/uL Absolute Neuts (auto) 3.9 (2.0-8.3) x10*3/uL Absolute Nucleated RBC 0.000 (0.0-0.012) X10*3/uL Nucleated RBC % (auto) 0.0 (0.0-0.2) /100WBC Sodium 135 (135-145) mmol/L Potassium 4.4 (3.3-5.1) mmol/L Chloride 102 (96-108) mmol/L Carbon Dioxide 28 (22-29) mmol/L Anion Gap 9 L (12-20) BUN 7 L (9-16) mg/dL Creatinine 1.17 (0.5-1.4) mg/dL Estim Creat Clear Calc 54.3 Estimated GFR > 60 Random Glucose 323 H (60-115) mg/dL Calcium 8.8 (8.4-10.2) mg/dL Total Bilirubin 0.4 (0.0-1.0) mg/dL AST 46 H (5-37) U/L ALT 31 (0-40) U/L Alkaline Phosphatase 142 H (39-117) U/L Total Protein 6.7 (6.5-8.0) g/dL Albumin 3.6 (3.5-5.0) g/dL Independent Interpretation I performed an independent interpretation of an: EKG, Plain X-Ray (no cough or URI, negative for pneumonia) and CT Scan (no trauma) Interpretation: Rate: 74 Rhythm: NSR [place]: normal Normal P waves. Normal ELISA. Normal QRS complex. ST T wave : no PATRICIA, normal qTC: 401 prior studies: no acute ischemia The study has been interpreted contemporaneously by me. . Radiology Impression Discussion of test interpretation with radiology: I have reviewed the radiologist's reading. Independent Historian Clinical information obtained from an independent historian. History obtained from or confirmed by: Spouse External Record Review External record reviewed: Inpatient record and Outpatient record Prescription Management I considered prescription management with: Pain Medication Discharge Plan Discharge Clinical Impression: Contusion of face Qualifiers: Encounter type: initial encounter Qualified Code(s): S00.83XA - Contusion of other part of head, initial encounter Patient Disposition: Home, Self-Care Instructions: Facial Contusion (ED) Additional Instructions: labs and EKG reassuring CT scan of head shows no trauma, CT scan of neck - arthritis but no acute fracture return for any worsening symptoms, chest pain, dyspnea, fevers, confusion, seizures on CT Scan there was an area in the lung that showed possible mucous or lesion - you need to follow up with your doctor for outpatient workup take tylenol as needed for pain Prescriptions: No Action albuterol sulfate [Ventolin HFA] 90 mcg/actuation HFA aerosol inhaler 2 puff PO Q4-6H PRN (Reason: for wheezing) Qty: 18 0RF atorvastatin 40 mg tablet 40 mg PO BEDTIME Qty: 90 3RF aspirin 81 mg tablet,delayed release (DR/EC) 81 mg PO DAILY Qty: 90 3RF meclizine 25 mg tablet 25 mg PO TID PRN (Reason: dizziness) Qty: 60 8RF (DME) adult pull ups medium See Rx Instructions .Route .MEDSUPPLY Qty: 100 0RF Rx Instructions: As directed (DME) bed rails See Rx Instructions .Route .MEDSUPPLY Qty: 2 0RF Rx Instructions: As directed (DME) Grab bars for bathroom See Rx Instructions .Route .MEDSUPPLY Qty: 2 0RF Rx Instructions: As directed (DME) hand held shower See Rx Instructions .Route .MEDSUPPLY Qty: 1 0RF Rx Instructions: As directed (DME) shower bench with back See Rx Instructions .Route .MEDSUPPLY Qty: 1 0RF Rx Instructions: As directed (DME) shower chair See Rx Instructions .Route .MEDSUPPLY Qty: 1 0RF Rx Instructions: As directed Lantus Solostar U-100 Insulin 100 unit/mL (3 mL) insulin pen 10 unit subcut DAILY Qty: 15 1RF metformin 1,000 mg tablet 1,000 mg PO BID 90 Days Qty: 180 2RF gabapentin 300 mg capsule 300 mg PO BID Qty: 180 1RF (DME) FreeStyle Precision Mike Strips Strip See Rx Instructions .Route Qty: 50 3RF Rx Instructions: Once daily as needed to check blood glucose when CGM reads high or low (DME) lancets [OneTouch UltraSoft 2 Lancet] 30 gauge misc See Rx Instructions .Route Qty: 100 3RF Rx Instructions: DAILY fluticasone furoate-vilanterol [Breo Ellipta] 200-25 mcg/dose blister with device 1 inh inhalation DAILY Qty: 60 2RF lisinopril 2.5 mg tablet 2.5 mg PO DAILY 90 Days Qty: 90 3RF montelukast [Singulair] 10 mg tablet 10 mg PO BEDTIME 90 Days Qty: 90 1RF amitriptyline 25 mg tablet 25 mg PO BEDTIME Qty: 90 1RF omeprazole 20 mg capsule,delayed release(DR/EC) 20 mg PO DAILY 90 Days Qty: 90 1RF cholecalciferol (vitamin D3) 50 mcg (2,000 unit) capsule 2,000 unit PO DAILY Qty: 90 2RF levetiracetam 500 mg tablet 500 mg PO Q12H Qty: 180 1RF hydrocortisone acetate [Anusol-HC] 25 mg suppository 25 mg NC BID Qty: 12 0RF acetaminophen [Tylenol] 325 mg capsule 650 mg PO Q6H PRN (Reason: pain) Qty: 30 0RF Ozempic 1 mg/dose (4 mg/3 mL) pen injector 1 mg subcut MO (DME) Compact Compressor Nebulizer Misc See Rx Instructions .Route Qty: 1 0RF Rx Instructions: As directed (DME) nebulizer accessories Kit See Rx Instructions .Route Qty: 1 0RF Rx Instructions: As directed (DME) pen needle, diabetic [BD Ultra-Fine Mini Pen Needle] 31 gauge x 3/16 needle See Rx Instructions .Route Qty: 100 3RF Rx Instructions: As directed Inject LAntus 10 u QD sertraline 100 mg tablet 100 mg PO DAILY (DME) FreeStyle Scott 3 [place] Misc See Rx Instructions .Route Qty: 1 0RF Rx Instructions: As directed (DME) FreeStyle Scott 3 Sensor Device See Rx Instructions .Route Qty: 9 5RF Rx Instructions: As directed change every 14 days Print Language: Jamaican
--- NOTE | 2024-08-08 11:51 | ECG_ITS ---
Test Reason : FALL Blood Pressure : / mmHG Vent. Rate : 074 BPM Atrial Rate : 074 BPM P-R Int : 150 ms QRS Dur : 076 ms QT Int : 362 ms P-R-T Axes : 035 026 039 degrees QTc Int : 401 ms Normal sinus rhythm Normal ECG When compared with ECG of 21-APR-2024 11:22, QT has shortened Referred By: Naomy Reyna Electronically Signed By:DOROTHY CAMACHO MD
[2024-08-08] MEDS: HYDROcodone Bit/Acetam 5/325 TABLET 1 TAB PO (12:45)
[2024-08-08 13:06] VITALS: BP 139/70; PULSE 84; RESP 20; TEMP 36.7; O2SAT 100
== END 2024-08-08 13:06 | disposition home or self-care (01) ==
PROVIDERS: Emergency Provider Emergency Medicine; PCP Internal Medicine
DX: S00.83XA Contusion of other part of head, initial encounter (principal); W06.XXXA Fall from bed, initial encounter; Y93.9 Activity, unspecified; Y92.9 Unspecified place or not applicable; Y99.9 Unspecified external cause status; I10 Essential (primary) hypertension; E11.9 Type 2 diabetes mellitus without complications; E78.5 Hyperlipidemia, unspecified; Z79.899 Other long term (current) drug therapy
CPT/HCPCS: 36415; 70450; 70486; 71045; 72125; 80053; 85025; 93005; 99284

== ENCOUNTER → 2024-08-08 10:49 | Outpatient (BNV) | payer OTHER, SELFPAY | PROVIDERS: Emergency Provider Emergency Medicine; PCP Internal Medicine; Visit Provider Radiology Diagnostic Radiology | DX: M54.2 Cervicalgia (principal); R68.84 Jaw pain; S00.83XA Contusion of other part of head, initial encounter; R07.9 Chest pain, unspecified; W06.XXXA Fall from bed, initial encounter | CPT/HCPCS: 70450; 70486; 71045; 72125 ==

== ENCOUNTER → 2024-08-08 11:51 | Outpatient (BNV) | payer OTHER, SELFPAY | PROVIDERS: Emergency Provider Emergency Medicine; PCP Internal Medicine; Visit Provider Internal Medicine Cardiovascular Disease | DX: R94.31 Abnormal electrocardiogram [ECG] [EKG] (principal) | CPT/HCPCS: 93010 ==

== ENCOUNTER 2024-08-18 08:28 | Outpatient (AMB) | payer OTHER, SELFPAY ==
[2024-08-18 08:38] VITALS: BMI 31.4
--- NOTE | 2024-08-18 08:38 | A.OFFVIS_ITS ---
Vital Signs 08/18/24 08:38 Height 5 ft 4 in Weight 183 lb BMI 31.4 Intake Visit Reasons: follow up Hallucination Intake Note: Patient presents for hallucinations Allergies aspirin [ASPIRIN] Allergy (Intermediate, Verified 08/18/24 08:41) RASH WITH HIGH DOSES Penicillins Allergy (Mild, Verified 08/18/24 08:41) HIVES phenytoin [From Dilantin] Allergy (Mild, Verified 08/18/24 08:41) BURNING SENSATION IN BODY butalbital [BUTALBITAL] Allergy (Unknown, Verified 08/18/24 08:41) HIVES thimerosal [THIMEROSAL] Allergy (Unknown, Verified 08/18/24 08:41) UNKNOWN doxycycline Adverse Reaction (Intermediate, Verified 08/18/24 08:41) penile rash? [place] Allergy (Unknown, Uncoded 08/18/24 08:41) Unknown MOTRIN Allergy (Unknown, Uncoded 08/18/24 08:41) hives HPI Comments Details: 74y/o right handed male comes for follow up of vertigo, seizures,KELLY, headaches. He has h/o seizures and was on phenytoin but now on levetiracetam 500mg bid . Last seizure was 1 year ago. 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 He was on dilantin which he stopped 8 years ago . He had a breakthrough seizure in Jul 2024. He also reports chronic vertigo and has increased recently.He also has tinnitus . He feels things are moving around often. He denies hallucinations. He has h/o sleep apnea but is not on CPAP due to discomfort. He reports headaches in the left frontoparietal region , that starts in the left neck.The headaches are moderate daily headaches and amitriptyline helps. [facility] Medical History Nocturia Pre-syncope Unspecified disorder of ear Seizure Bladder wall thickening Incontinence Lower urinary tract symptoms Enlarged prostate Vertigo Other peripheral vertigo, unspecified ear Insulin long-term use Seizure Frequency of micturition Testicular pain Skin cyst Stroke Lipoma of abdominal wall History of carpal tunnel syndrome BERNARD positive Inguinal hernia, bilateral BPH (benign prostatic hyperplasia) Brain tumor Hypercholesterolemia Obstructive sleep apnea Vitamin D deficiency Obesity (BMI 30-39.9) Vitamin B12 deficiency GERD (gastroesophageal reflux disease) Grand mal seizure disorder Erectile dysfunction Osteoarthritis COPD (chronic obstructive pulmonary disease) Tennis elbow Calcaneal spur, right RLS (restless legs syndrome) Pulmonary nodule Insomnia Essential hypertension Diabetes mellitus with hyperglycemia Migraine Surgical History Hx of carpal tunnel repair History of diverticulosis Hx of colonoscopy History of elbow surgery Hx of foot surgery Hx of brain surgery History of partial gastrectomy History of right inguinal hernia repair Hx of prostate biopsy Family History Father Diabetes Throat cancer Heart disease Mother Ovarian cancer Social History Household Members: Spouse Housing: House Are you a primary nonfarm animal caretaker to a significant other at home: No Do you presently have visiting nurse or other home services: Yes ([facility]) Alcohol intake: never Patient Tobacco Use Status: Never used Tobacco e-Cigarette/Vaping Use: Never Used Second Hand Smoke Exposure: No Advance Directives Date on File: 06/13/21 service: No Current occupational status: retired Current occupation: rt handed Cognitive needs: No Hearing needs: No Vision needs: No Physical Exam Vital Signs: BMI result Body Mass Index 31.4 Const General: cooperative, healthy appearing and comfortable Nutritional Appearance: average body habitus Orientation/consciousness: patient oriented x3 Eyes Pupils: Equal, round and reactive pupils present Neuro Other: Tightness and tenderness in left splenius, levator , trapezius General: patient oriented x3, gait normal, tone normal, moves all extremities and no focal motor deficits Cranial nerves: Yes Facial sensation intact/muscles of mastication intact, Yes Equal, round and reactive pupils present, Yes Bilaterally intact EOM present, Yes Nystagmus not present, Yes Normal facial strength present, Yes Midline tongue present, Yes Symmetric palate elevation present and Yes Ability to bila terally elevate shoulders present Cognition (Neuro): normal cognition Gait exam (Neuro): Normal gait present Motor exam (neuro): 5/5 motor strength present throughout, no tremor noted and Normal motor muscle tone present throughout Coordination: [id number] test normal Results Reviewed Results Reviewed: MRI brain - 05/2024 No acute intracranial abnormalities. No abnormal intracranial enhancement. 2. Chronic encephalomalacia of the left greater than right anterior frontal lobes. Small region of chronic encephalomalacia in the inferior left cerebellar hemisphere. Mild underlying microangiopathy and generalized cerebral volume loss. 3. No additional MRI abnormalities to explain the patient's symptoms. [address] [address] [address] Scan Report Signed Patient: Geovanny Khoury MR#: [id number] : 1950 Acct:[id number] Age/Sex: 74 / M ADM Date: 08/08/24 Loc: HO.ED Attending Dr: Ordering Physician: Sapna Andre Date of Service: 08/08/24 Procedure(s): CT head/brain wo IV con Accession Number(s): [id number] cc: Den Leal MD; Sapna Andre~ Report Number: [id number]: Total DLP = 722.00 mGy-cm EXAMINATION: CT brain, CT cervical spine and CT facial bones. CLINICAL INDICATION: Fall. COMPARISON: CT cervical spine and CT brain 04/21/2024. TECHNIQUE: 5 mm thin axial and reformatted 2 mm thin sagittal and coronal images of brain were obtained. Axial 3 mm thin and reformatted 2 minute thin sagittal and coronal images of cervical spine were obtained. Lastly axial 3 mm thin and reformatted 1.5 mm thin sagittal and coronal images of facial bones were obtained. [facility] 1472 CT was performed utilizing dose optimization techniques such as iterative reconstruction, adjustment in MA and/or KV according to patient protocol and automated exposure control. FINDINGS: Brain: There is no acute intra-axial, extra-axial bleed, masses or midline shift. There is no acute infarction evolution. There is no acute infarction evolution. There is left frontal lobe hypodensity likely diagnosis from previous intervention. There is a left frontal craniotomy. The lateral ventricles are symmetrical in size and configuration without enlargement. No abnormality seen in posterior fossa. Bone windows reveal no calvarial abnormality except for left frontal craniotomy changes no scalp soft tissue abnormality seen. The paranasal sinuses and mastoid air cells are well-aerated. Cervical spine: There is mild straightening of cervical lordosis. The vertebral heights, alignment are normal. There is mild loss of C6-7 disc height with ventral and posterior spondylosis. No ventral spondylosis seen in the rest of the cervical spine from C3-4 through C6/7 disc level. The craniovertebral junction and this C1-C2 alignment is normal. No visible acute fracture, dislocation or subluxation seen. There is mild left C2-3, C3-4, C4-5 and C6-7 facet joint arthropathy. No aggressive lytic or sclerotic process seen. The prevertebral and paravertebral soft tissues are normal. There is soft tissue debris or lesion in the right trachea on axial slice 49/14. The lung apices are clear. Facial bones: There is mild mucoperiosteal thickening bilateral frontal, maxillary and ethmoid sinuses from chronic inflammatory process. Mild obstruction of left ostiomeatal complex is seen. Rest of the drainage pathways are patent. Mild deviation of posterior nasal to the left anterior nasal to the right with a bony spur is noted. The nasal bone and the maxillofacial bones are intact. No fracture visualized. Bilateral TM joints and the visualized mandible is intact. CT/CT head/brain wo IV con IMPRESSION: No acute intracranial process seen except for left frontal lobe gliosis and left frontal craniotomy change. Reversal of cervical lordosis with degenerative disc changes with left facet joint arthropathy as described above. No visible acute fracture or dislocation seen. Mild chronic inflammatory changes of bilateral ethmoid, frontal and maxillary sinuses. No visible maxillofacial, nasal or mandibular fractures seen. Assessment & Plan Assessment & Plan (1) Seizure: Code(s): R56.9 - Unspecified convulsions Category: Medical (2) Headache: Comment: MRI April 2020 Code(s): R51.9 - Headache, unspecified Category: Medical Qualifiers: Headache type: cervicogenic headache Qualified Code(s): G44.86 - Cervicogenic headache (3) Brain tumor: Comment: Surgery 1990April 2021 Code(s): D49.6 - Neoplasm of unspecified behavior of brain Category: Medical (4) Obstructive sleep apnea: Comment: decline CPAP (03/2021) Code(s): G47.33 - Obstructive sleep apnea (adult) (pediatric) Category: Medical (5) Snoring: Code(s): R06.83 - Snoring Category: Medical (6) Hypersomnia: Code(s): G47.10 - Hypersomnia, unspecified Category: Medical Plan Increase amitriptyline 50mg qhs Levetiracetam 500mg bid Unsure if he is taking gabapentin Home sleep test to reevaluate sleep apnea Declines PT He tried vestibular therapy but was told it was not BPV reviewed MRI and CT brain Orders: Orders RT home sleep study Today G47.10 - Hypersomnia, unspecified, R06.83 - Snoring Medications: Changed From amitriptyline 25 mg PO BEDTIME 90 tabs 1RF To amitriptyline 50 mg (2 x 25 mg) PO BEDTIME 60 tabs 1RF Coding Level of Care Code Est Pt Level 5 (45611) Complex EM visit Add On G2211 Diagnoses Seizure R56.9 Cervicogenic headache G44.86 Headache type: cervicogenic headache Brain tumor D49.6 Obstructive sleep apnea G47.33 Snoring R06.83 Hypersomnia G47.10 Time Spent (min) 55 Comment 30min with patient 15 minutes reviewing [facility] records 10 min documenting
== END 2024-08-18 09:09 | disposition home or self-care (01) ==
PROVIDERS: PCP Internal Medicine; Visit Provider Psychiatry & Neurology Neurology
DX: R56.9 Unspecified convulsions (principal); D49.6 Neoplasm of unspecified behavior of brain; G44.86 Cervicogenic headache; G47.33 Obstructive sleep apnea (adult) (pediatric); R06.83 Snoring; G47.10 Hypersomnia, unspecified
CPT/HCPCS: 99215; G2211

== ENCOUNTER → 2024-08-18 08:28 | Outpatient (BNVA) | payer OTHER, SELFPAY | PROVIDERS: PCP Internal Medicine; Visit Provider Psychiatry & Neurology Neurology | DX: R56.9 Unspecified convulsions (principal); D49.6 Neoplasm of unspecified behavior of brain; G44.86 Cervicogenic headache; G47.33 Obstructive sleep apnea (adult) (pediatric); G47.10 Hypersomnia, unspecified; R06.83 Snoring | CPT/HCPCS: 99212 ==

== ENCOUNTER 2024-08-23 09:24 | Outpatient (REF) | payer OTHER, SELFPAY ==
--- NOTE | ~2024-08-23 | XR_ITS ---
EXAMINATION: XR KNEE, RIGHT CLINICAL INFORMATION: M25.561 - Pain in right knee COMPARISON: None available. TECHNIQUE: Two views of the right knee. FINDINGS: Normal bone mineralization. No fracture, dislocation, or malalignment. No suspicious bone lesions. Mild medial and patellofemoral compartment joint space narrowing with mild marginal osteophytic spurs. Preservation of the lateral compartment Mild spurring of the tibial spines present. There is mild enthesopathy of the tibial tubercle. Mild soft tissue swelling overlying. There is a small to moderate suprapatellar joint effusion present. There are vascular calcifications in the soft tissues. XR/XR knee RT 2V IMPRESSION: 1. No acute fracture or dislocation. 2. Mild to moderate medial and patellofemoral compartment osteoarthrosis. 3. Small to moderate sized suprapatellar joint effusion. 4. Mild enthesopathy of the tibial tubercle with mild soft tissue swelling overlying. Correlate with point tenderness. Electronically signed by: Miguel Cowan MD 08/23/2024 10:50 AM [place]
== END 2024-08-23 09:25 | disposition home or self-care (01) ==
LOC: HO.XRAY 09:24
PROVIDERS: PCP Internal Medicine
DX: M25.561 Pain in right knee (principal); R20.0 Anesthesia of skin; R20.2 Paresthesia of skin; E11.65 Type 2 diabetes mellitus with hyperglycemia; I10 Essential (primary) hypertension; E66.9 Obesity, unspecified; Z68.30 Body mass index [BMI] 30.0-30.9, adult; J98.09 Other diseases of bronchus, not elsewhere classified; Z79.4 Long term (current) use of insulin
CPT/HCPCS: 73560; 96127; 99212

== ENCOUNTER 2024-08-23 09:24 | Outpatient (AMB) | payer OTHER, SELFPAY ==
--- NOTE | 2024-08-23 09:32 | A.OFFPC_ITS ---
Vital Signs 08/23/24 09:34 Height 5 ft 4 in Weight 179 lb 4 oz BMI 30.8 BP 100/66 Blood Pressure Location Lt brachial Position Sitting Pulse 71 Pulse Source Pulse Oximeter Pulse Oximetry (%) 99 Oxygen Delivery Method Room Air Intake Visit Reasons: [facility] 08/08 L Side Facial Pain S/P Fall 08/08/24 Intake Note: Patient is here to follow-up after a visit the emergency department at [facility] on 08/08/24. Char Belt Operator Required: Yes Char Belt Operator Language: Ticket Scheduler Name: Laura (Spouse) Information Interpreted: non-clinical & clinical Art Display Maker: Present Accompanied by: Spouse Allergies aspirin [ASPIRIN] Allergy (Intermediate, Verified 08/23/24 09:45) RASH WITH HIGH DOSES Penicillins Allergy (Mild, Verified 08/23/24 09:45) HIVES phenytoin [From Dilantin] Allergy (Mild, Verified 08/23/24 09:45) BURNING SENSATION IN BODY butalbital [BUTALBITAL] Allergy (Unknown, Verified 08/23/24 09:45) HIVES thimerosal [THIMEROSAL] Allergy (Unknown, Verified 08/23/24 09:45) UNKNOWN doxycycline Adverse Reaction (Intermediate, Verified 08/23/24 09:45) penile rash? [place] Allergy (Unknown, Uncoded 08/23/24 09:45) Unknown MOTRIN Allergy (Unknown, Uncoded 08/23/24 09:45) hives Medication List - Last Reconciled 08/23/24 by Edna Camacho PA-C acetaminophen (Tylenol) 650 mg (2 x 325 mg) PO Q6H PRN [adult pull ups As directed] albuterol sulfate 90 mcg/actuation (Ventolin HFA) 2 puffs PO Q4-6H PRN amitriptyline 50 mg (2 x 25 mg) PO BEDTIME aspirin 81 mg PO DAILY atorvastatin 40 mg PO BEDTIME [bed rails As directed] cholecalciferol (vitamin D3) 2,000 units PO DAILY fluticasone furoate-vilanterol 200-25 mcg/dose (Breo Ellipta) 1 inh inhalation DAILY FreeStyle Scott 3 Ft Mitchell (blood-glucose meter,continuous) As directed NS FreeStyle Scott 3 Sensor (blood-glucose sensor) As directed change every 14 days NS FreeStyle Precision Mike Strips (blood sugar diagnostic) Once daily as needed to check blood glucose when CGM reads high or low NS gabapentin 300 mg PO BID [Grab bars for bathroom As directed] [hand held shower As directed] hydrocortisone acetate (Anusol-HC) 25 mg AZ BID insulin glargine (Lantus Solostar U-100 Insulin) 10 units (0.1 mL) subcut DAILY lancets (OneTouch UltraSoft 2 Lancet) DAILY levetiracetam 500 mg PO Q12H lisinopril 2.5 mg PO DAILY 90 days meclizine 25 mg PO TID PRN metformin 1,000 mg PO BID 90 days montelukast (Singulair) 10 mg PO BEDTIME 90 days nebulizer accessories As directed nebulizers (Compact Compressor Nebulizer) As directed omeprazole 20 mg PO DAILY 90 days pen needle, diabetic (BD Ultra-Fine Mini Pen Needle) As directed Inject LAntus 10 u QD semaglutide (Ozempic) 1 mg subcut MO sertraline 100 mg PO DAILY [shower chair As directed] [shower bench with back As directed] Tobacco use date assessed: 08/23/24 Fall risk assessment: 2 + Falls in past year Last assessed Fall Risk: 08/23/24 Dental Screening Dental Screen Date: 08/23/24 Did you have a dental visit in the last 12 months?: Yes Did you have a dental problem in the last 6 months where you did not have access to dental care?: No Was dental information given to patient?: Patient has dentist HPI [facility] 08/08 L Side Facial Pain S/P Fall 08/08/24 HPI Details 74-year-old obese male with diabetes maggie litus, hypertension, GERD, hypercholesterolemia, recurrent major depression, asthma last seen 05/[address] Leal coming in for hospital discharge follow up.? In review of the notes patient was seen in [facility] ED 08/08/2024 after falling out of bed with head strike labs, EKG and CT scan of head and neck were normal.? CT of the chest showed possible mucus or lesion in the long require additional follow up.? Patient was discharged home.? Patient was seen by Neurology 08/18/2024 advised to increase amitriptyline, ordered for sleep study to re-evaluate sleep apnea. Patient tells us today he still has occasional pain in the right side of the jaw but is tolerable. He also mentions having a 2nd falls since discharge from the hospital he was walking when he tripped and lost his balance and fell on his right knee. As a result he is having right knee swelling and tenderness as well as an abrasion over the front of the knee. He also mentions having persistent numbness and weakness in bilateral hands and has never had an upper extremity EMG performed. [facility] Medical History Snoring Hypersomnia Nocturia Pre-syncope Unspecified disorder of ear Seizure Bladder wall thickening Incontinence Lower urinary tract symptoms Enlarged prostate Vertigo Other peripheral vertigo, unspecified ear Insulin long-term use Seizure Frequency of micturition Testicular pain Skin cyst Stroke Lipoma of abdominal wall History of carpal tunnel syndrome BERNARD positive Inguinal hernia, bilateral BPH (benign prostatic hyperplasia) Brain tumor Hypercholesterolemia Obstructive sleep apnea Vitamin D deficiency Obesity (BMI 30-39.9) Vitamin B12 deficiency GERD (gastroesophageal reflux disease) Grand mal seizure disorder Erectile dysfunction Osteoarthritis COPD (chronic obstructive pulmonary disease) Tennis elbow Calcaneal spur, right RLS (restless legs syndrome) Pulmonary nodule Insomnia Essential hypertension Diabetes mellitus with hyperglycemia Migraine Surgical History Hx of carpal tunnel repair History of diverticulosis Hx of colonoscopy History of elbow surgery Hx of foot surgery Hx of brain surgery History of partial gastrectomy History of right inguinal hernia repair Hx of prostate biopsy Family History Father Diabetes Throat cancer Heart disease Mother Ovarian cancer Social History Household Members: Spouse Housing: House Are you a primary housekeeper caregiver to a significant other at home: No Do you presently have visiting nurse or other home services: Yes ([facility]) Alcohol intake: never Patient Tobacco Use Status: Never used Tobacco e-Cigarette/Vaping Use: Never Used Second Hand Smoke Exposure: No Advance Directives Date on File: 06/13/21 service: No Current occupational status: retired Current occupation: rt handed Cognitive needs: No Hearing needs: No Vision needs: No Questionnaire PHQ-9 Over the last 2 weeks, how often have you been bothered by any of the following problems? 1. Little interest or pleasure in doing things: not at all 2. Feeling down, depressed, or hopeless: not at all (Has Therapist) 3. Trouble falling or staying asleep, or sleeping too much: not at all 4. Feeling tired or having little energy: not at all 5. Poor appetite or overeating: not at all 6. Feeling bad about yourself - or that you are a failure or have let yourself or your family down: not at all 7. Trouble concentrating on things, such as reading the newspaper or watching television: not at all 8. Moving or speaking so slowly that other people could have noticed. Or the opposite - being so fidgety or restless that you have been moving around a lot more than usual: not at all 9. Thoughts that you would be better off or of hurting yourself in some way: not at all Total score: 0 Depression Screening Interpretation: Negative Depression Screening Done: Yes Source: Developed by Drs. Bonifacio Disla, Cristine Card, Orville Morley and colleagues, with an educational jackson from [employer]. Thrive Questionnaire Date Thrive assessed: 08/23/24 I am a: Patient What is your living situation today?: I have a steady place to live Within the past 12 months, did the food you bought not last and you didn't have the money to get more?: Never true Within the past 12 months, did you worry whether your food would run out before you got money to buy more?: Never true Do you have trouble paying for medicines?: No Do you have trouble getting transportation to medical appointments?: No Do you have trouble paying your heating and electricity bill?: No Do you have trouble taking care of your child, family member or friend?: No Do you have trouble with day-to-day activities such as bathing, preparing meals, shopping, managing finances, etc.?: No Are you currently unemployed and looking for a job?: No Are you interested in more education?: No Please select the resources that you would like help with: None Currently or been in a relationship where the following occur: No concerns reported THRIVE Score: 0 AUDIT C Alcohol Use Questionnaire (AUDIT-C) 1. How often do you have a drink containing alcohol?: Monthly or less 2. How many drinks containing alcohol do you have on a typical day when you are drinking?: 1 or 2 Total Score: 1 LANA-7 AMB Questionnaire LANA-7 Date LANA - 7 assessed: 08/23/24 Feeling nervous, anxious, or on edge: 0 = Not at all Not being able to stop or control worryin = Not at all Worrying too much about different things: 0 = Not at all Trouble relaxin = Not at all Being so restless that it is hard to sit still: 0 = Not at all Becoming easily annoyed or irritable: 0 = Not at all Feeling afraid as if something awful might happen: 0 = Not at all Total LANA-7 score (0-4 normal; 5-9 mild; 10-14 moderate; 15-21 severe): 0 Source: Developed by Drs. Bonifacio [employer], Cristine Card, Orville Morley and colleagues, with an educational jackson from [employer]. Review of Systems Const Denies body aches, Denies chills, Denies fever(s), Denies headache(s) and Denies poor appetite Eyes Reports no additional complaints ENT Denies dysphagia, Denies dizziness, Denies headache(s) and Denies odynophagia Card Denies chest pain, Denies syncope, Denies edema, Denies irregular heart rhythm, Denies lightheadedness and Denies dyspnea Resp Denies cough and Denies dyspnea GI Denies abdominal pain, Denies constipation, Denies dysphagia, Denies diarrhea, Denies nausea, Denies odynophagia and Denies vomiting Reports no additional complaints Musc Details: Right knee pain Reports no additional complaints and Denies abnormal gait Skin/Breast Reports system reviewed and no additional complaints, except as documented Neuro Denies abnormal gait, Denies dizziness, Denies syncope and Denies headache(s) Psych Reports no additional complaints Physical exam (Primary Care) Vital Signs: Last Vital Signs Pulse 71 08/23/24 09:34 BP 100/66 08/23/24 09:34 Pulse Ox 99 08/23/24 09:34 Oxygen Delivery Method Room Air 08/23/24 09:34 BMI result Body Mass Index 30.8 Tobacco/Smoking Status: Tobacco use Status Tobacco use date assessed 08/23/24 08/23/24 09:40 Patient Tobacco Use Status Never used Tobacco 08/23/24 09:40 e-Cigarette/Vaping Use Never Used 08/23/24 09:40 PHQ-9: PHQ-9 Score PHQ-9: Total score 0 08/23/24 12:45 Depression Screening Interpretation: Negative Thrive Assessment: Date of Thrive Assessment Date Thrive assessed 08/23/24 08/23/24 09:40 Currently or been in a relationship where the following occur: No concerns reported Const General: cooperative, healthy appearing, comfortable and no acute distress Orientation/consciousness: patient oriented x3 HENMT Head: Yes normocephalic Ears: hearing grossly normal bilaterally General nose exam: Normal external nose present Eyes General: appearance normal, both eyes and all related structures Conjunctivae: conjunctivae normal Neck Neck: Yes full ROM and Yes no lymphadenopathy Resp Effort & Inspection: normal respiratory effort Auscultation: clear to auscultation bilaterally, no crackles, no rales, no rhonchi and no wheezes Cardio Rate: regular rate Rhythm: regular rhythm Skin General skin exam: no rashes or lesions noted Neuro General: patient oriented x3 Gait exam (Neuro): Normal gait present Extrem Other: Swelling and mild bruising over right knee without erythema. Small abrasion with normal scabbing over the anterior aspect of the knee General: Yes normal to inspection, Yes full ROM and No edema Psych Affect: normal affect Attitude: cooperative Insight: Good insight present (Psych) Judgement: Good judgement present (Psych) Coding Level of Care Code Est Pt Level 4 (32691) Diagnoses Right knee pain M25.561 Numbness and tingling of hand R20.0; R20.2 Type 2 diabetes mellitus with hyperglycemia, with long-term current use of insulin E11.65; Z79.4 Diabetes mellitus type: type 2 Diabetes mellitus oysterman insulin use: with oysterman use Essential hypertension I10 Obesity (BMI 30-39.9) E66.9 Tracheobronchial lesion J98.09 Assessment & Plan Assessment & Plan (1) Right knee pain: Code(s): M25.561 - Pain in right knee Category: Medical Plan: Patient complaining of right knee pain after a fall x-ray obtained which showed mild joint effusion with overlying swelling an underlying osteoarthritis. Advised patient to elevate the leg and use Tylenol as needed for pain. For the abrasion use Neosporin or bacitracin and keep the area clean. Patient may use a brace for comfort. Recommend switching to a quad cane to steady gait. (2) Numbness and tingling of hand: Code(s): R20.0 - Anesthesia of skin; R20.2 - Paresthesia of skin Category: Medical Plan: Patient complaining of bilateral numbness and tingling in the hands has never had upper extremity EMG done. Ordered for EMG for further evaluation. (3) Diabetes mellitus with hyperglycemia: [facility] Code(s): E11.65 - Type 2 diabetes mellitus with hyperglycemia Category: Medical Qualifiers: Diabetes mellitus type: type 2 Diabetes mellitus care home insulin use: with care home use Qualified Code(s): E11.65 - Type 2 diabetes mellitus with hyperglycemia; Z79.4 - superintendent terminal (current) use of insulin Plan: Decrease the amount of carbohydrates such as pasta, bread, rice, and potatoes and limit the amount of sweets. Although fruits are generally healthy they should be eaten in moderation as they are still high in sugar. Hemoglobin A1c goal of less than 7% (4) Essential hypertension: Code(s): I10 - Essential (primary) hypertension Category: Medical Plan: Continue on current blood pressure medication. Avoid salt intake and encourage healthy diet and regular exercise. Blood pressure at goal today 100/66 (5) Obesity (BMI 30-39.9): Code(s): E66.9 - Obesity, unspecified Category: Medical Plan: Healthy diet and regular exercise is encouraged. (6) Tracheobronchial lesion: Code(s): J98.09 - Other diseases of bronchus, not elsewhere classified Category: Medical Plan: Having tracheal lesion visualized on CT scan referral placed to ENT for further workup. There is soft tissue debris or lesion in the right trachea on axial slice 49/14. Plan This note was constructed using voice recognition software. While every effort has been made to ensure accuracy and delivery agent, still areas may have been included sometimes these areas may affect the content or meeting of the given symptoms. Total time spent caring for the patient today was 20 minutes. This includes time spent before the visit reviewing the chart, time spent during the visit, and time spent after the visit and documentation. Orders: Orders NE electromyogram (EMG) Today R20.0 - Anesthesia of skin, R20.2 - Paresthesia of skin XR knee RT 2V Today M25.561 - Pain in right knee Referrals Ear/Nose/Throat Referral J98.09 - Other diseases of bronchus, not elsewhere classified Medications: New [quad cane] As directed 1 ea 0RF I63.9 - Cerebral infarction, unspecified, M17.12 - Unilateral primary osteoarthritis, left knee, R56.9 - Unspecified convulsions cyclobenzaprine 5 mg PO BEDTIME PRN 14 tabs 0RF muscle spasm
[2024-08-23 09:34] VITALS: BP 100/66; PULSE 71; O2SAT 99; BMI 30.8
== END 2024-08-23 10:16 | disposition home or self-care (01) ==
PROVIDERS: PCP Internal Medicine
DX: E11.65 Type 2 diabetes mellitus with hyperglycemia (principal); Z79.4 Long term (current) use of insulin; E66.9 Obesity, unspecified; Z68.30 Body mass index [BMI] 30.0-30.9, adult; M25.561 Pain in right knee; R20.0 Anesthesia of skin; R20.2 Paresthesia of skin; I10 Essential (primary) hypertension; J98.09 Other diseases of bronchus, not elsewhere classified

== ENCOUNTER → 2024-08-23 10:12 | Outpatient (BNV) | payer OTHER, SELFPAY | PROVIDERS: PCP Internal Medicine; Visit Provider Radiology Diagnostic Radiology | DX: M25.561 Pain in right knee (principal) | CPT/HCPCS: 73560 ==

== ENCOUNTER 2024-09-06 05:51 | Outpatient (REF) | payer OTHER, SELFPAY ==
--- NOTE | 2024-09-06 | EMG_ITS ---
Bilateral median and ulnar motor and sensory studies were performed. Bilateral radial sensory studies were performed, and paraspinal muscles were tested with a needle. IMPRESSION: 1. Moderately severe bilateral median neuropathy across carpal tunnel. 2. 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 MD MITALI Armas/MARIA FERNANDAL / [phone]
== END 2024-09-06 05:52 | disposition home or self-care (01) ==
LOC: HO.NEURO 05:51
PROVIDERS: PCP Internal Medicine
DX: R20.0 Anesthesia of skin (principal); R20.2 Paresthesia of skin
CPT/HCPCS: 95886; 95911

== ENCOUNTER 2024-09-21 09:49 | Outpatient (AMB) | payer OTHER, SELFPAY ==
[2024-09-21 10:05] VITALS: BP 136/80; PULSE 84; O2SAT 98; BMI 30.7
--- NOTE | 2024-09-21 10:05 | MHC.PC.OV ---
Vital Signs 09/21/24 10:05 Height 5 ft 4 in Weight 179 lb BMI 30.7 BP 136/80 Blood Pressure Location Lt brachial Position Sitting Pulse 84 Pulse Source Pulse Oximeter Pulse Oximetry (%) 98 Oxygen Delivery Method Room Air Intake Visit Reasons: DM, seizure disorder Allergies aspirin [ASPIRIN] Allergy (Intermediate, Verified 09/21/24 10:06) RASH WITH HIGH DOSES Penicillins Allergy (Mild, Verified 09/21/24 10:06) HIVES phenytoin [From Dilantin] Allergy (Mild, Verified 09/21/24 10:06) BURNING SENSATION IN BODY butalbital [BUTALBITAL] Allergy (Unknown, Verified 09/21/24 10:06) HIVES thimerosal [THIMEROSAL] Allergy (Unknown, Verified 09/21/24 10:06) UNKNOWN doxycycline Adverse Reaction (Intermediate, Verified 09/21/24 10:06) penile rash? [place] Allergy (Unknown, Uncoded 09/21/24 10:06) Unknown MOTRIN Allergy (Unknown, Uncoded 09/21/24 10:06) hives Tobacco use date assessed: 09/21/24 Fall risk assessment: No Falls in past year Last assessed Fall Risk: 09/21/24 Dental Screening Dental Screen Date: 08/23/24 HPI DM, seizure disorder HPI Details The patient is a 74-year-old male presenting with a follow-up for management of multiple chronic conditions. He reports persistent knee pain, initially noted after a fall, which was exacerbated by osteoarthritis as confirmed by an X-ray conducted on August 23, 2024. The X-ray revealed mild to moderate compartmental osteoarthritis and moderate effusion, contributing to knee discomfort. He also experiences numbness and tingling in the hands, which has been evaluated through nerve conduction studies. These studies, dated September 06, 2024, indicated moderately severe bilateral medial neuropathy across the carpal tunnel and moderate bilateral ulnar neuropathy. The patient acknowledges prior carpal tunnel surgery without complete resolution of symptoms. Noteworthy is the patient's history of a breakthrough seizure in July 2024 despite a prior period of seizure stability. An MRI of the brain showed chronic encephalomalacia affecting the right anterior frontal lobe and some cerebellar involvement. His Type 2 diabetes remains suboptimally controlled, with a blood glucose level of 323 noted in recent labs, and an A1c level of 8.3. Despite dietary counseling, lifestyle changes have been inconsistent. Additionally, there are noted deficiencies of vitamins such as B6. Other chronic conditions include obstructive sleep apnea, for which CPAP therapy was recommended but not accepted, and hypercholesterolemia. Routine evaluation demonstrated stable renal function and chronic anemia without significant changes in parameters. [facility] Medical History Snoring Hypersomnia Nocturia Pre-syncope Unspecified disorder of ear Seizure Bladder wall thickening Incontinence Lower urinary tract symptoms Enlarged prostate Vertigo Other peripheral vertigo, unspecified ear Insulin long-term use Seizure Frequency of micturition Testicular pain Skin cyst Stroke Lipoma of abdominal wall History of carpal tunnel syndrome BERNARD positive Inguinal hernia, bilateral BPH (benign prostatic hyperplasia) Brain tumor Hypercholesterolemia Obstructive sleep apnea Vitamin D deficiency Obesity (BMI 30-39.9) Vitamin B12 deficiency GERD (gastroesophageal reflux disease) Grand mal seizure disorder Erectile dysfunction Osteoarthritis COPD (chronic obstructive pulmonary disease) Tennis elbow Calcaneal spur, right RLS (restless legs syndrome) Pulmonary nodule Insomnia Essential hypertension Diabetes mellitus with hyperglycemia Migraine Surgical History Hx of carpal tunnel repair History of diverticulosis Hx of colonoscopy History of elbow surgery Hx of foot surgery Hx of brain surgery History of partial gastrectomy History of right inguinal hernia repair Hx of prostate biopsy Family History Father Diabetes Throat cancer Heart disease Mother Ovarian cancer Social History Household Members: Spouse Housing: House Are you a primary child care provider to a significant other at home: No Do you presently have visiting nurse or other home services: Yes ([facility]) Alcohol intake: never Patient Tobacco Use Status: Never used Tobacco Tobacco use type: Cigarette e-Cigarette/Vaping Use: Never Used Second Hand Smoke Exposure: No Advance Directives Date on File: 06/13/21 service: No Current occupational status: retired Current occupation: rt handed Cognitive needs: No Hearing needs: No Vision needs: No Questionnaire PHQ-9 Over the last 2 weeks, how often have you been bothered by any of the following problems? 1. Little interest or pleasure in doing things: not at all 2. Feeling down, depressed, or hopeless: not at all (Has Therapist) 3. Trouble falling or staying asleep, or sleeping too much: not at all 4. Feeling tired or having little energy: not at all 5. Poor appetite or overeating: not at all 6. Feeling bad about yourself - or that you are a failure or have let yourself or your family down: not at all 7. Trouble concentrating on things, such as reading the newspaper or watching television: not at all 8. Moving or speaking so slowly that other people could have noticed. Or the opposite - being so fidgety or restless that you have been moving around a lot more than usual: not at all 9. Thoughts that you would be better off or of hurting yourself in some way: not at all Total score: 0 Depression Screening Interpretation: Negative Depression Screening Done: Yes Source: Developed by Drs. Bonifacio Disla, Cristine Card, Orville Morley and colleagues, with an educational jackson from [employer]. Thrive Questionnaire Date Thrive assessed: 08/23/24 AUDIT C Alcohol Use Questionnaire (AUDIT-C) 1. How often do you have a drink containing alcohol?: Monthly or less 2. How many drinks containing alcohol do you have on a typical day when you are drinking?: 1 or 2 Total Score: 1 LANA-7 AMB Questionnaire LANA-7 Date LANA - 7 assessed: 08/23/24 Source: Developed by Drs. Bonifacio Disla, Cristine Card, Orville Morley and colleagues, with an educational jackson from [employer]. Physical exam (Primary Care) Vital Signs: Last Vital Signs Pulse 84 09/21/24 10:05 BP 136/80 09/21/24 10:05 Pulse Ox 98 09/21/24 10:05 Oxygen Delivery Method Room Air 09/21/24 10:05 BMI result Body Mass Index 30.7 Tobacco/Smoking Status: Tobacco use Status Tobacco use date assessed 09/21/24 09/21/24 10:07 Patient Tobacco Use Status Never used Tobacco 09/21/24 10:07 Tobacco use type Cigarette 09/21/24 10:07 e-Cigarette/Vaping Use Never Used 09/21/24 10:07 PHQ-9: PHQ-9 Score PHQ-9: Total score 0 09/21/24 10:29 Depression Screening Interpretation: Negative Thrive Assessment: Date of Thrive Assessment Date Thrive assessed 08/23/24 09/21/24 10:07 Const General: alert; No acute distress Eyes Conjunctivae: conjunctivae normal Resp Auscultation: clear to auscultation bilaterally Cardio Rate: regular rate Rhythm: regular rhythm GI Inspection: Yes normal to inspection Extrem General: Yes normal to inspection and No edema Results AMB Hemoglobin A1c AMB Hemoglobin A1c 10.4 % Last Edit by L[place] CMA on 09/21/24 10:28 Results Reviewed Results Reviewed: Laboratory Last Values Hgb A1c (Clinic) 10.4 % (4.0-6.0) H 09/21/24 10:28 Coding Level of Care Code Est Pt Level 4 (17742) Complex EM visit Add On G2211 Diagnoses Carpal tunnel syndrome on both sides G56.03 Type 2 diabetes mellitus with hyperglycemia, with long-term current use of insulin E11.65; Z79.4 Diabetes mellitus [facility] insulin use: with [facility] use Diabetes mellitus type: type 2 Essential hypertension I10 GERD (gastroesophageal reflux disease) K21.9 Obstructive sleep apnea G47.33 Hypercholesterolemia E78.00 Recurrent major depression F33.9 Assessment & Plan Assessment & Plan (1) Carpal tunnel syndrome on both sides: Comment: 08/29/2024Moderately severe bilateral median neuropathy across carpal tunnel. 2. 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 Code(s): G56.03 - Carpal tunnel syndrome, bilateral upper limbs Category: Medical Plan: Nerve conduction test showing moderately severe bilateral median neuropathy carpal tunnel noted also having bilateral ulnar neuropathy. 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 Hemoglobin A1c goal of less than 7.0. Patient is on Lantus 10 units once a day metformin a 1000 mg twice a day and semaglutide 1 mg once a week (3) Essential hypertension: Code(s): I10 - Essential (primary) hypertension Category: Medical Plan: Continue with blood pressure medication. Decrease salt intake and exercise on lisinopril 2.5 mg once a day (4) GERD (gastroesophageal reflux disease): Code(s): K21.9 - Gastro-esophageal reflux disease without esophagitis Category: Medical Plan: Avoid the foods that causes that usually spicy foods, tomato products, juices, coffee, soda and foods that your sensitive to. After eating do not lie down, allow 3-4 hours before in lie down. And keep the head of bed above 30 degrees to avoid the acid from going up. (5) Obstructive sleep apnea: Comment: decline CPAP (03/2021) Code(s): G47.33 - Obstructive sleep apnea (adult) (pediatric) Category: Medical Plan: Patient is going to have a sleep study done. (6) Hypercholesterolemia: Code(s): E78.00 - Pure hypercholesterolemia, unspecified Category: Medical Plan: Avoid fried foods, chicken skin, eggs, butter margarine, pastries and meat. Be it pork or beef they have a lot of cholesterol on atorvastatin 40 mg at bedtime LDL goal of less than 100 and triglyceride of less than 150 (7) Recurrent major depression: Comment: suicidal ideation 05/2012, Counselling Q 2 weeks Code(s): F33.9 - Major depressive disorder, recurrent, unspecified Category: Medical Plan: Continue with present medication and counseling Plan - Manage Diabetes Mellitus with adjustment of medication, increase Ozempic to 2 mg weekly to improve glycemic control alongside dietary modifications focusing on reduction of refined carbohydrates. - For Hypertension, continue current regimen and address during next routine check. - Manage Obstructive Sleep Apnea with re-evaluation of sleep study results; consider potential re-initiation of CPAP. - Address Seizure Disorder by maintaining current antiepileptic therapy and schedule follow-ups with neurology for further assessment. - For Right Knee Osteoarthritis, recommend weight management, physical therapy, and possibly analgesics for pain management; consider orthopedic referral if conditions persist. - Monitor Anemia with routine laboratory studies; initiate further investigation if levels worsen. - Address GERD with current treatment regimen; escalate management if symptoms are refractory to medication. - Continue monitoring liver enzymes; consider hepatology consultation if elevated liver function tests persist. - Bilateral Carpal Tunnel and Ulnar Neuropathy to be managed with occupational therapy, potential nerve release consideration, and neurologist follow-up for comprehensive care. - Follow-up on recurring Cerebrovascular Event CVE) risk due to depression, supportive management and therapy adherence. - Set a comprehensive review in three months for reassessment of all ongoing chronic conditions, ensuring effective multi-disciplinary management. Orders: Orders AMB Hemoglobin A1c Today E11.65 - Type 2 diabetes mellitus with hyperglycemia, Z13.9 - Encounter for screening, unspecified, Z79.4 - oysterman (current) use of insulin Comprehensive Met. Panel 3 Months E11.65 - Type 2 diabetes mellitus with hyperglycemia, Z79.4 - skilled nursing (current) use of insulin Lipid Panel 3 Months E11.65 - Type 2 diabetes mellitus with hyperglycemia, E78.00 - Pure hypercholesterolemia, unspecified, Z79.4 - skilled nursing (current) use of insulin Creatinine Urine 3 Months E11.65 - Type 2 diabetes mellitus with hyperglycemia, Z79.4 - skilled nursing (current) use of insulin Vitamin B12 and Folate 3 Months E11.65 - Type 2 diabetes mellitus with hyperglycemia, Z79.4 - skilled nursing (current) use of insulin Hemoglobin A1c 3 Months E11.65 - Type 2 diabetes mellitus with hyperglycemia, Z79.4 - oysterman (current) use of insulin Ferritin 3 Months E11.65 - Type 2 diabetes mellitus with hyperglycemia, Z79.4 - oysterman (current) use of insulin IRON PROFILE 3 Months E11.65 - Type 2 diabetes mellitus with hyperglycemia, Z79.4 - oysterman (current) use of insulin UA CC w/rflx Micro + Cult 3 Months E11.65 - Type 2 diabetes mellitus with hyperglycemia, R30.0 - Dysuria, Z79.4 - skilled nursing (current) use of insulin Complete Blood Count Auto Diff 3 Months E11.65 - Type 2 diabetes mellitus with hyperglycemia, Z79.4 - skilled nursing (current) use of insulin Free T4 (Free Thyroxine) 3 Months E11.65 - Type 2 diabetes mellitus with hyperglycemia, Z79.4 - oysterman (current) use of insulin Thyroid Stimulating Hormone 3 Months E11.65 - Type 2 diabetes mellitus with hyperglycemia, Z79.4 - oysterman (current) use of insulin Microalbumin, Random (w Creat) 3 Months E11.65 - Type 2 diabetes mellitus with hyperglycemia, Z79.4 - skilled nursing (current) use of insulin Referrals Orthopedics Referral G56.03 - Carpal tunnel syndrome, bilateral upper limbs Medications: New semaglutide (Ozempic) 2 mg (0.75 mL) subcut QWEEK 3 mL 3RF E11.65 - Type 2 diabetes mellitus with hyperglycemia, Z79.4 - oysterman (current) use of insulin
--- OUTSIDE RECORDS SUMMARY | 2024-09-21 11:25 | XMS_ITS ---
Author Organization [facility] Address [address] [place] [address] Care Team Providers Care Gaming Table Operator Name Role Phone Den Leal MD Primary Care Provider Bonifacio Damon [facility] [phone] REASON FOR VISIT Patient presents today for a recall colonoscopy Encounters Encounter Location Date Provider Diagnosis [facility] [address] [place] [address] 07/19/2024 Bonifacio Camejo PLAN OF TREATMENT Next Appt Details Provider Name:Bonifacio Camejo , 11/04/2024 01:40:00 PM, [address], [address], [place], [address],
--- OUTSIDE RECORDS SUMMARY | 2024-09-21 11:25 | XMS_ITS | Clinical Summary ---
Author Organization [facility] Address [address] [place] [address] Care Team Providers Care Galvanizing Pot Runner Name Role Phone Den Leal MD Primary Care Provider [phone] Social History Tobacco Use Types Packs/Day Years Used Date Smoking Tobacco: Never Assessed Sex and Gender Information Value Date Recorded Sex Assigned at Not on file Legal Sex Male 10:25 AM EST Gender Identity Not on file Sexual Orientation Not on file Plan of Treatment Health Maintenance Due Date Last Done Comments DTaP,Tdap,and Td Vaccines (1 - Tdap) 01/07/1971 Pneumococcal Vaccine: 50+ Ye ars (1 of 1 - PCV) 01/07/2002 Zoster Vaccines (1 of 2) 01/07/2002 Abdominal Aortic Aneurysm (A AA) Screen 07/20/2022 Cholesterol Screening (Lipid Panel) 07/20/2022 Colorectal Cancer Screening: Colonoscopy 07/20/2022 Depression Screening 07/20/2022 Falls Risk Assessment 07/20/2022 Hepatitis C Screening 07/20/2022 Social Influencers of Health Screening 07/20/2022 COVID-19 Vaccine (1 - 2023-2 5 season) 2024 Influenza Vaccine (#1) 2024 RSV Immunization Patients 60 + Years Old (1 - 1-dose 75+ series) 01/07/2027 HIB Vaccines Aged Out No longer eligi ble based on patient's age to complete this topic HPV Vaccines Aged Out No longer eligi ble based on patient's age to complete this topic Hepatitis A Vaccines Aged Out No long er eligible based on patient's age to complete this topic Hepatitis B Vaccines Aged Out No long er eligible based on patient's age to complete this topic IPV Vaccines Aged Out No longer eligi ble based on patient's age to complete this topic MMR Vaccines Aged Out No longer eligi ble based on patient's age to complete this topic Meningococcal ACWY Vaccine Aged Out N o longer eligible based on patient's age to complete this topic Meningococcal B Vacine Aged Out No lo nger eligible based on patient's age to complete this topic RSV Immunization Patients Un angi 20 months Aged Out No longer eligible b ased on patient's age to complete this topic Varicella Vaccines Aged Out No longer eligible based on patient's age to complete this topic Care Teams Galvanizing Pot Runner Relationship Specialty Start Date End Date Den Leal MD [address] [place] [address] [address] [facility] [place] [address] PCP - General Internal Medicine 09/10/11
--- OUTSIDE RECORDS SUMMARY | 2024-09-21 11:25 | XMS_ITS | Data Portability ---
Author Organization [employer] [place] [facility] [employer] Address [address] [place] [phone] Care Team Providers Care Gun Striper Name Role Phone HIM CCA OTHER Assessment Encounter Date Assessment Date Assessment LastModified by Organization Details LastModified Time 12/22/2023 12/22/2023 I have reviewed and agree with the assessment and plan as documented by the fretted instruments inspector. I provided real time medical direction for this encounter and was immediately available to provide additional phone based assistance as needed. History as noted by fretted instruments inspector. Pt with history of COPD, reports 3 days of URI symptoms with ENGLISH, myalgias, chills, nasal congestion and yellow rhinorrhea, cough productive of yellow sputum and sore throat. He also notes b/l anterior chest burning pain when he coughs. He has also noted mild SOB but this improves when he uses his inhalers. Pt notes several episodes of vomiting yesterday, but none today. He is tolerating po today without difficulty. On exam, pt alert, no distress. Vitals normal, afebrile. O2 sat normal. Lungs clear. Rapid Covid, Strep and Flu negative. Impression: Pt with 3 days of URI symptoms endorsing multiple complaints. He appears well and comfortable with normal vitals and clear lungs on exam. Covid, Flu and strep negative. Pt has a cough/flu medication at home that contains dextromethorphan and guaifenesin that he is told to continue to use. He is medicated with toradol 30mg IM x1 now and is told to start using the tylenol that he has at home TID prn ENGLISH, myalgias and sore throat. He will also continue to use his inhalers for cough and SOB. Pt told to call and f/u with his primary care team later this week if not improving and to seek medical attention in the ED with any new or worsening symptoms. btils Not available 12/22/2023 12:19:59 Plan of Treatment Reminders Order Date Submit Date Provider Last Modified By Organization Details Last Modified Time Details Appointments None recorded. Lab rapid SARS CoV 2 Ag, QL IA, respiratory specimen 2023 024 btils [facility], [address] [place] [address], [phone], 4 12:14:18 rapid flu (A+B) 2023 024 btils [facility], [address] [place] [address], [phone], 4 12:14:19 rapid strep group A, [facility] [address] [place] [address], [phone], 4 12:14:16 Referral None recorded. Procedures None recorded. Surgeries None recorded. Imaging None recorded. Medication Orders ketorolac 30 mg/mL (1 mL) injection [facility] Not available 11:53:48 Patient TargetsNo targets recorded. Patient InstructionsNo instructions recorded. Reason for Referral None Reported. Results Created Date Observation Date Name Description Value Unit Range Abnormal Flag Note LastModifiedBy Organization Detail LastModifiedTime 12/22/1912/22/2023 rapid strep group A, throa t Strep negati ve Not Available [facility] ed [address] [place] [address], [phone], 12/22/2023 12:13:37 12/22/1912/22/2023 rapid flu (A+B) Flu negati ve Not Available [facility] ed [address] [place] [address], [phone], 12/22/2023 12:13:32 12/22/1912/22/2023 rapid SARS CoV 2 Ag, QL IA, respi rator y speci men rapid SARS CoV 2 Ag, QL IA, respiratory specimen negati ve Not Available [facility] ed [address] [place] [address], [phone], 12/22/2023 12:13:28 Result Notes None recorded. Medical Equipment None Reported. Allergies Allergen ID Allergen Name Allergen Category Reaction Reaction Severity Criticality Documentation Date Start Date Code Code System Note Provider Name and Address Organization Details Recorded Time 7006 Product containin g penicilli n and antibioti c (product) medicatio n Not available Not available Not available 06/07/2024 38091 05 SNOMED Not Available [facility] - production 03:34:25 Medications Name Sig Start Date Stop Date Status Note LastModified by Organization Details LastModified Time cyclobenzapr ine 10 mg tablet TAKE 1 TABLET BY MOUTH THREE TIMES DAILY NEEDED FOR MUSCLE SPASM active Not Available Not Available No t Available atorvastatin 40 mg tablet TAKE 1 TABLET BY MOUTH AT BEDTIME active Not Available Not Available No t Available acetaminophe n 325 mg tablet TAKE 2 TABLETS BY MOUTH EVERY 6 HOURS NEEDED FOR PAIN active Not Available Not Available No t Available levetiraceta m 500 mg tablet TAKE 1 TABLET BY MOUTH EVERY 12 HOURS active Not Available Not Available No t Available FreeStyle Lancets 28 gauge DIRECTED CHECK BLOOD SUGAR THREE TIMES DAILY active Not Available Not Available Not Available prednisone 20 mg tablet TAKE 2 TABLETS BY MOUTH DAILY FOR 5 DAYS active Not Available Not Available N ot Available sertraline 100 mg tablet TAKE 1 TABLET BY MOUTH DAILY active Not Available Not Available Not Available aspirin 81 mg tablet,delay ed release TAKE 1 TABLET BY MOUTH DAILY active Not Available Not Available Not Available tramadol 50 mg tablet TAKE 1 TABLET BY MOUTH TWICE DAILY NEEDED FOR PAIN active Not Available Not Available No t Available ketorolac 30 mg/mL (1 mL) injection solution Inject 30 mg by intramuscul ar route. 2023 active Not Available Not Available Not Avai lable terbinafine HCl 250 mg tablet TAKE 1 TABLET BY MOUTH DAILY WITH FOOD active Not Available Not Available No t Available amitriptylin e 25 mg tablet TAKE 1 TABLET BY MOUTH AT BEDTIME active Not Available Not Available No t Available OneTouch Ultra Test strips USE DIRECTED TO CHECK BLOOD SUGAR THREE TIMES DAILY active Not Available Not Available Not Available meclizine 25 mg tablet TAKE 1 TABLET BY MOUTH THREE TIMES DAILY NEEDED FOR DIZZINESS active Not Available Not Available No t Available metformin 1,000 mg tablet TAKE 1 TABLET BY MOUTH TWICE DAILY active Not Available Not Available No t Available lidocaine 5 % topical patch active Not Available Not Available Not Available omeprazole 20 mg capsule,connor yed release TAKE 1 CAPSULE BY MOUTH DAILY active Not Available Not Available Not Available montelukast 10 mg tablet TAKE 1 TABLET BY MOUTH AT BEDTIME active Not Available Not Available No t Available gabapentin 100 mg capsule TAKE 1 CAPSULE BY MOUTH TWICE DAILY active Not Available Not Available No t Available lisinopril 2.5 mg tablet TAKE 1 TABLET BY MOUTH DAILY active Not Available Not Available Not Available Ventolin HFA 90 mcg/actuatio n aerosol inhaler INHALE 2 PUFFS BY MOUTH EVERY 4 TO 6 HOURS NEEDED FOR WHEEZING active Not Available Not Available No t Available BD Ultra-Fine Mini Pen Needle 31 gauge x 3/16 USE DIRECTED TO INJECT LANTUS EVERY DAY active Not Available Not Available No t Available Lantus Solostar U-100 Insulin 100 unit/mL (3 mL) subcutaneous pen ADMINISTER 10 UNITS UNDER THE SKIN DAILY active Not Available Not Available N ot Available Vitamin D3 50 mcg (2,000 unit) capsule TAKE 1 CAPSULE BY MOUTH DAILY active Not Available Not Available Not Available Trulicity 1.5 mg/0.5 mL subcutaneous pen injector ADMINISTER 1.5 MG UNDER THE SKIN EVERY WEEK active Not Available Not Available No t Available Trulicity 0.75 mg/0.5 mL subcutaneous pen injector ADMINISTER 0.75 MG UNDER THE SKIN EVERY WEEK active Not Available Not Available No t Available Breo Ellipta 200 mcg-25 mcg/dose powder for inhalation INHALE 1 PUFF BY MOUTH DAILY active Not Available Not Available Not Available OneTouch Ultra2 Meter USE THREE TIMES DAILY active Not Available Not Available Not Available OneTouch Delica Plus Lancet 33 gauge USE DIRECTED active Not Available Not Available No t Available Vitals Date Recorded Oxygen saturation Oxygen saturation in Arterial blood by Pulse oximetry Body height Heart rate Body weight Respiratory rate Body temperature Systolic blood pressure Diastolic blood pressure Provider Name and Address Organization Details Last Updated DateTime 4 98 % 98 % 152.4 cm 84 /min 27133.8 g 14 /min 98.4 [degF] 130 mm[Hg] 84 mm[Hg] Not Available [facility] - production 4 20:17:11 Date Recorded Oxygen saturation Oxygen saturation in Arterial blood by Pulse oximetry Heart rate Body temperature Respiratory rate Body weight Body height Systolic blood pressure Diastolic blood pressure Provider Name and Address Organization Details Last Updated DateTime 4 98 % 98 % 78 /min 97.7 [degF] 18 /min 68408.5 6 g 162.56 cm 117 mm[Hg] 72 mm[Hg] Not Available [facility] - production 4 11:46:45 Social History None recorded. Functional Status None recorded. Mental Status None recorded. Family History Nothing Reported. Medical History No medical history recorded. Past Encounters Encounter ID Performer Location Encounter Start Date Encounter Closed Date Diagnosis/Indication Diagnosis SNOMED-CT Code Diagnosis ICD10 Code Diagnosis Note [id number] Albert Mcclelland MD [facility] [address] [place] [address] 09/01/2023 20:17:06 09/03/2023 09:19:52 Retention of urine due to occlusion of Howe catheter [id number] T83.098A As noted, we were called to see this patient regarding concerns of howe catheter dysfunctio n. Evaluation in the field was performed by my fretted instruments inspector colleague, as noted above, I provided real-time direction and supervisio n for this visit. The evaluation revealed patient with lower abdominal pain and tenderness and sub-oligur ic UO. Per family he went to ED for back and hip pain and got CT scan, howe, and Rx flexeril and lidocaine patch. Unclear what else was going on. Medic attempted to shift and adjust howe with release of more urine. Total >500 and dark. Pt. still with abd pain and tenderness . Firm to palpation but not necessaril y like a full bladder. Per family drank only about 1 L fluids today. Impression :Howe catheter malfunctio n vs malpositio n. Unclear cause of retention. Response to reposition ing could fit with improvemen t in a patient with hypovolemi a (not enough PO). Alternativ david, it's possible the catheter is not working and the adjustment merely cleared a bit more fluid from the bladder or catheter tubing. The lower abd pain and tenderness is also most c/w retention but could also be seen in cystitis, and again the cause of the retention is unclear. Plan:Check ing BMP to eval for Cr/BUN c/w obstructiv e uropathy --> Cr/BUN look fineChecki ng UA to eval for LE/Nit --> not clearly indicative of UTI in context; less blood than I would expect for a malpositio radhabella pelayoey Discussed situation and given degree of pain, he will present to ED for repeat eval Primary care, mariluz fried in call this week. [id number] Nelson Younger MD [facility] - [facility] [address] [place] [phone] 12/22/2023 11:46:40 12/22/2023 15:15:53 Viral upper respiratory tract infection 994726088 J06.9 Health Concerns Section Related Observation LastModified by Organization Detai ls LastModified Time None Recorded Concern Status LastModified by Organization Details LastModified Time None Recorded Advance Directives Directive None Recorded Payers Encounter Date Sequence Insurance Name Policy Number Policy Tracy Covered Member ID Tracy Member ID Guarantor Name 09/01/2023 1 [facility] - DOS ON OR AFTER 2022 - DUAL ELIGIBLE - SNF OPTIONS AND ONE CARE (MEDICARE REPLACEMENT/ADV ANTAGE - HMO) Geovanny Khoury [id number] Geovanny Khoury 12/22/2023 1 [facility] - DOS ON OR AFTER 2022 - DUAL ELIGIBLE - SNF OPTIONS AND ONE CARE (MEDICARE REPLACEMENT/ADV ANTAGE - HMO) Geovanny Khoury [id number] Geovanny Khoury Notes Date Note Type Note Provider Name and Address Organization Details Recorded Time 09/01/2023 text/html [facility] Nurse Triage Notes (Yesenia Fish): Chief Complaints: Abdominal Pain, UTI/Pyelonephritis, Wound Care PMH: COPD/Asthma, Hypertension, Diabetes Allergies: Unknown Comments: Howe cath in placed last night in ER for urine retention. Drained a lot of urine at once but today there has been very little output. Urine is red tinged, no clots seen. Having pain in his low abd. Requesting visit to troubleshoot cath. Bola Fish RN. ..................... ..................... ..................... ..................... ..................... ..................... ............... Child Nutrition Director Note From David De La Torre: Pt amrit complains of lower diffuse abdominal pain x 4 days, was seen at ED last night and had a howe installed. reports pt made about 250 ml in bag today. Pt complains of right hip pain as well. Pt states he has never had UTIs or urinary retention before. Pt complains of 10 of 10 pain that makes it hard to walk. Pt denies other pain or complaints. Pt reports burning at howe insertion site. States he drank 60 oz water today. Pt pink warm and dry, secondary exam unremarkable. Abdomen soft, tender throughout. No edema. Howe appears to have about 300 ml dark urine, clear, no sediment. At [facility] orders, troubleshooting the howe with flush and repositioning yields another 250ml urine in howe. [facility] orders BMP and UA. Values to [facility]. Pt offered at home treatment with fluid and antibiotics but requests transport to ED. Prashanth MCCLOUD transports to [place] ED. ..................... ..................... ..................... ..................... ..................... ..................... ............... Disposition: Fulfilled Albert Mcclelland MD [address] [facility] [facility], [place], [address], [employer] 09/02/2023 09:35:41 12/22/2023 text/html This was a super vised home visit with fretted instruments inspector Bonnie Bishop. [facility] Nurse Triage Notes (Aaron Cuellar): Patient Reports: Lower extremity swelling; History of asthma, increased use of inhaler; COPD; Sputum increase ; Cough; Shortness of breath with exertion; Pain with inspirationDenies: Increased work of breathing/labored ? with or without fever Unable to speak in full sentences without distress Cough, fever greater than 2 days Chief Complaints: Weakness/Lethargy, Cough, Chest Pain, HeadachePMH: COPD/Asthma, Hypertension, DiabetesAllergies: PenicillinComments: Financial Planning Adviser verified the member's name//address and phone number. Education provided on the response time and the member was advised to monitor reported s/s and seek emergency treatment if needed. Member is feeling unwell with cough/cold and congestion - weakness and headache - Chest pain - Burning - worsening when coughing - 5/10 - Body aches - Breathing is non labored and the member is speaking full sentences - Denies fever - S/S for 3 days - Wellness check requested Child Nutrition Director POC Test Results from Bonnie Bishop - ALS Rapid COVID antigen (1) [12:53] COVID: - Rapid influenza antigen (1) [12:53] Flu: - Rapid strep test (1) [12:53] Strep: - ..................... ..................... ..................... ..................... ..................... ..................... ............... Child Nutrition Director Note From Bonnie Bishop: Sent to a call for a pt complaining of flu-like symptoms. [facility] arrives on scene, pt is alert and oriented, airway is patent. Pt's primary language is Kiswahili. Family serves as electrostatic painter. Family states pt complains of flu-like symptoms x 3 days. Pt's granddaughter (lives in home) had cold-like symptoms last week. Pt has vertigo at baseline. Pt complains of headache, worsening dizziness (not positionally dependent), runny nose with yellow mucus, sore throat, productive cough with yellow phlegm, bilateral burning chest pain with cough, sob, intermittent nausea, vomiting yesterday, feeling feverish, chills, and body aches. Pt has been using Nyquil and albuterol inhaler with some effect. Pt denies sinus pain, abd pain, diarrhea, or loc. Pt's primary complaint is body pain. Pt has cough/cold medication (dextromethorphan/gua ifenesin), and Tylenol on hand. BP:117/72, P:78, RR:18, SpO2:98% RA, T:97.7; Head: throat: erythema/edema noted, no exudate; Lung sounds: clear bilaterally; Abdomen: soft, non-tender, no distention; Back: unremarkable; Extremities: unremarkable; Skin :pink, warm, dry; Rapid covid test: neg; Rapid flu test: neg; Rapid strep test: neg; [facility] consulted and orders Toradol 30mg IM. Pt advised to use cough/cold medication, Tylenol 1gm TID, Albuterol inhaler to help with symptoms. Toradol 30mg IM administered without incident. Red flags discussed. Pt/family have no further questions. ..................... ..................... ..................... ..................... ..................... ..................... ............... Disposition: Fulfilled Nelson Younger MD [address] [facility], [place], [address], [employer] 12/22/2023 13:07:31
--- OUTSIDE RECORDS SUMMARY | 2024-09-21 11:25 | XMS_ITS | Patient Health Record ---
Author Organization [facility] Address [address] [place] [address] Care Team Providers Care Cover Stripper Name Role Phone Po Den CARLIN Primary Care Provider Bonifacio Damon [phone] ALLERGIES Allergen (clinical drug ingredient) Drug/Non Drug Allergy documented on EMR Reaction Allergy Type Onset Date Status acetaminophen / oxycodone Percocet hives Drug Allergy Active Motrin Unknown Drug Allergy Active phenytoin Dilantin Unknown Drug Allergy Active aspirin Aspirin Unknown Drug Allergy Active [place] hives Drug Allergy Active Penicillin itchyness/hives Drug Allergy Active Thimerosal Unknown Drug Allergy Active REASON FOR REFERRAL No Information MEDICATIONS Medication SIG (Take, Route, Frequency, Duration) Notes Start Date End Date Status Meloxicam 15 MG TK 1 T PO QD Oral for 90 Active tiZANidine HCl 4 MG 1 tablet as needed O rally Three times a day Active HYDROcodone-Acetaminophen 5-325 MG 1 tablet as needed Orally every 6 hrs Active Dicyclomine HCl 10 MG TAKE 1 TO 2 CAPSUL ES BY MOUTH 4 TIMES DAILY NEEDED FOR ABDOMINAL PAIN/CRAMPS. Active Ibuprofen 600 MG 1 tablet with food o r milk as needed Orally Three times a day Active Cyanocobalamin 1000 MCG 1 tablet Orally Once a day for 30 day(s) Active Levocetirizine Dihydrochloride 5 MG 1 tablet in the evening Orally Once a day for 30 day(s) Active Divalproex Sodium ER 250 MG 1 tablet Ora lly Once a day for 30 day(s) Active Gabapentin 100 MG TK 1 C PO QD Oral for 90 Active Breo Ellipta 200-25 MCG/INH INL 1 PUFF P O QD Inhalation for 90 Active Sertraline HCl 50 MG TK 1 T PO QD Oral for 90 Active Lisinopril 2.5 MG TK 1 T PO QD Oral for 90 Active Aspirin 81 81 MG 1 tablet Orally Once a day for 30 day(s) Active ProAir HFA 108 (90 Base) MCG/ACT 1 puff as needed Inhalation every 4 hrs Active Januvia 100 MG as directed Orally O nce a day Active metFORMIN HCl 1000 MG 1 tablet with a me al Orally twice a day Active Trulicity 0.75 MG/0.5ML INJECT 1 PEN SUBCUTANEOUSLY WEEKLY Subcutaneous for 28 Active Omeprazole 20 MG 1 capsule 30 minutes before morning meal Orally Once a day Active Lantus SoloStar 100 UNIT/ML ADM 20 UNI S C QD Subcutaneous for 75 Active Sildenafil Citrate 50 MG 1 tablet as nee ded Orally Once a day for 30 day(s) Active Topiramate 50 MG 2 tablet Orally Once a day Active Meclizine HCl 25 MG 1 tablet as needed O rally as needed 3 times a day Active Amitriptyline HCl 25 MG as directed Oral ly three times a day Active Polyethylene Glycol - as directed Active levETIRAcetam 500mg 1 tablet Orally Twic e a day Active IMMUNIZATIONS Vaccine Route Administration Date Status Comme nts Influenza Unknown 05/10/2018 Administered Influenza Unknown 04/10/2019 Administered SOCIAL HISTORY Sex Assigned At : Social History Observation Description Sex Assigned At Unknown PROBLEMS Problem Type ICD Code Onset Dates Problem Status W/U Status Risk SNOMED Code Notes Problem Encounter for screening for malignant neoplasm of colon (Z12.11) Active confirmed 067647749 Problem History of adenomatous polyp of colon (Z86.010) Active confirmed 375826406 Problem Generalized abdominal pain (R10.84) Active confirmed 648233881 Problem Elevated liver function tests (R79.89) Active confirmed 021692263 Problem Elevated liver enzymes (R74.8) Active confirmed 351688770 Problem Constipation, unspecified constipation type (K59.00) Active confirmed 75656242 Problem Positive BERNARD (antinuclear antibody) (R76.8) Active confirmed 332003795 Problem BERNARD positive (R76.8) Active confirmed 471982197 Encounters Encounter Location Date Provider Diagnosis [facility] [address] [place] [address] 07/19/2024 Bonifacio Camejo PLAN OF TREATMENT Pending Test Test Name Order Date LIVER PROFILE 03/06/2020 LIVER PROFILE 06/26/2020 LIVER PROFILE 01/07/2020 CERULOPLASMIN 12/13/2019 PROTEIN ELECTROPHORESIS, SERUM 0 FLUOR. ANTINUCLEAR AB SCREEN (WANG) 12/10 Future Test Test Name Order Date COLONOSCOPY 09/09/2018 Next Appt Details Provider Name:Bonifacio Camejo , 11/04/2024 01:40:00 PM, [address], [place], [address], Insurance Providers Payer Name Payer Address Payer Phone Subscriber Number Group Number Insured Name Patient Relationship to Insured Coverage Start Date Coverage End Date [facility] [address] [place] [address] [id number] BILL PRITCHETT Self - patient is the insured MEDICAID OF [facility] [address] [place] [address] [id number] BILL PRITCHETT Self - patient is the insured MEDICAL (GENERAL) HISTORY Medical History History ICD Code Colonoscopy [phone] small tubular a denoma removed He had a neg colonoscopy in 08/[address] Neri History of peptic ulcer disease-s/p B-II in [facility] Denies [place],CVA,renal disease Neg EGD with Dr. Neri in 08/2012--Bx ne g for H.pylori Neg CT of abdomen/pelvis in 02/2013 Depression Seizure disorder Asthma/COPD Neg. colonoscopy in 02/2019 Elevated LFT's-neg. CT and U /S in early 2019 except for probable fatty liver. Completely negative liver w/u except for a + BERNARD 1:640 in a nuclear, dense fine speckled pattern(repeated x 2). However, the LFT's normalized on 01/24/2020. COPD Surgical History Surgery Date(Month/Year) Subtotal gastrectomy with Billroth II in November 1990 for PUD Hernia repair 1990 Heel surgery Brain tumor removed 1990 Elbow surgery Neck surgery Cataracts
== END 2024-09-21 10:45 | disposition home or self-care (01) ==
PROVIDERS: PCP Internal Medicine; Visit Provider Internal Medicine
DX: E11.65 Type 2 diabetes mellitus with hyperglycemia (principal); Z79.4 Long term (current) use of insulin; F33.9 Major depressive disorder, recurrent, unspecified; G56.03 Carpal tunnel syndrome, bilateral upper limbs; I10 Essential (primary) hypertension; K21.9 Gastro-esophageal reflux disease without esophagitis; G47.33 Obstructive sleep apnea (adult) (pediatric); E78.00 Pure hypercholesterolemia, unspecified

== ENCOUNTER → 2024-09-21 09:49 | Outpatient (BNVA) | payer OTHER, SELFPAY | PROVIDERS: PCP Internal Medicine; Visit Provider Internal Medicine | DX: G56.03 Carpal tunnel syndrome, bilateral upper limbs (principal); E11.65 Type 2 diabetes mellitus with hyperglycemia; K21.9 Gastro-esophageal reflux disease without esophagitis; I10 Essential (primary) hypertension; G47.33 Obstructive sleep apnea (adult) (pediatric); E78.00 Pure hypercholesterolemia, unspecified; F33.9 Major depressive disorder, recurrent, unspecified; Z79.4 Long term (current) use of insulin | CPT/HCPCS: 83036; 99212 ==

== ENCOUNTER → 2024-10-03 09:52 | Outpatient (REF) | payer OTHER, SELFPAY ==
--- OUTSIDE RECORDS SUMMARY | 2024-10-03 10:54 | XMS_ITS | Clinical Summary ---
Author Organization 175 [facility] Address [address] [place] [address] Phone Care Team Providers Care Contract Clerk Automobile Name Role Phone Den Leal MD Primary Care Provider [phone] Social History Tobacco Use Types Packs/Day Years Used Date Smoking Tobacco: Never Assessed Sex and Gender Information Value Date Recorded Sex Assigned at Not on file Legal Sex Male 10:25 AM EST Gender Identity Not on file Sexual Orientation Not on file Plan of Treatment Upcoming Encounters Date Type Department Care Team (Late st Contact Info) Description 10/10/2024 9:30 AM EST Consult Orthopedic Surgery - [place] 175 [facility] [address] [place] [address] Madelyn Salcedo PA 174 [facility] [address] [place] [address] Health Maintenance Due Date Last Done Comments DTaP,Tdap,and Td Vaccines (1 - Tdap) 01/07/1971 Pneumococcal Vaccine: 50+ Ye ars (1 of 1 - PCV) 01/07/2002 Zoster Vaccines (1 of 2) 01/07/2002 Abdominal Aortic Aneurysm (A AA) Screen 07/20/2022 Cholesterol Screening (Lipid Panel) 07/20/2022 Colorectal Cancer Screening: Colonoscopy 07/20/2022 Depression Screening 07/20/2022 Falls Risk Assessment 07/20/2022 Hepatitis C Screening 07/20/2022 Medicare Annual Wellness Visit 07/20/2022 Social Influencers of Health Screening 07/20/2022 [...] on patient's age to complete this topic Insurance [facility] MEDIC[facility] Member Subscriber Plan / Payer (Ef fective 2024-Present) Name:Peng Geovanny Relation to Subscriber:Self Name:Geovanny Khoury Payer ID:[id number] Group ID:[id number] Type:Not on file Address: [place] [address] [address] [address] Care Teams Contract Clerk Automobile Relationship Specialty Start Date End Date Den Leal MD [address] [place] [address] [address] [facility] XUAN Frank [address] PCP - General Internal Medicine 09/10/11
--- OUTSIDE RECORDS SUMMARY | 2024-10-03 10:55 | XMS_ITS | Data Portability ---
Author Organization [email or web address] [employer] [facility] [employer] Address [address] [place] [address] Care Team Providers Care Stringing Machine Operator Name Role Phone HIM CCA OTHER Assessment Encounter Date Assessment Date Assessment LastModified by Organization Details LastModified Time 12/22/2023 12/22/2023 I have reviewed and agree with the assessment and plan as documented by the track grinder operator. I provided real time medical direction for this encounter and was immediately available to provide additional phone based assistance as needed. History as noted by track grinder operator. Pt with history of COPD, reports 3 [...] QL IA, respiratory specimen 2023 024 btils [facility], [address] [place] [address], [phone], 4 12:14:18 rapid flu (A+B) 2023 024 btils [facility], [address] [place] [address], [phone], 4 12:14:19 rapid strep group A, throat [facility] [address] [place] [address], [phone], 4 12:14:16 Referral None recorded. Procedures None recorded. Surgeries None recorded. Imaging None recorded. Medication Orders ketorolac 30 mg/mL (1 mL) injection [facility] 11:53:48 Patient TargetsNo targets recorded. Patient InstructionsNo instructions recorded. Reason for Referral None Reported. Results Created Date Observation Date Name Description Value Unit Range Abnormal Flag Note LastModifiedBy Organization Detail LastModifiedTime 12/22/1912/22/2023 rapid strep group A, throa t Strep negati ve Not Available [facility] ed [address] [place] [address], [phone], 12/22/2023 12:13:37 12/22/1912/22/2023 rapid flu (A+B) Flu negati ve Not Available [facility] ed [address] [place] [address], [phone], 12/22/2023 12:13:32 12/22/1912/22/2023 rapid SARS CoV 2 Ag, QL IA, respi rator y speci men rapid SARS CoV 2 Ag, QL IA, respiratory specimen negati ve Not Available [facility] ed [address] [place] [address], [phone], 12/22/2023 12:13:28 Result Notes None recorded. Medical Equipment None Reported. Allergies Allergen ID Allergen Name Allergen Category Reaction Reaction Severity Criticality Documentation Date Start Date Code Code System Note Provider Name and Address Organization Details Recorded Time 7072 Product containin g penicilli n (product) medicatio n Not available Not available Not available 06/07/2024 59227 8001 SNOMED Not Available [facility] - production 03:34:25 [...] % 98 % 152.4 cm 84 /min 41833.8 g 14 /min 98.4 [degF] 130 mm[Hg] [...] % 78 /min 97.7 [degF] 18 /min 85585.5 6 g 162.56 cm 117 mm[Hg] 72 mm[Hg] Not Available [facility] - production 4 11:46:45 Social History None recorded. Functional Status None recorded. Mental Status None recorded. Family History Nothing Reported. Medical History No medical history recorded. 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 Evaluation in the field was performed by my track grinder operator colleague, as noted above, I provided real-time [...] than I would expect for a malpositio radha howe Discussed situation and given degree of pain, he will present to ED for repeat eval Primary care, mariluz fried in call this week. [id number] Nelson Younger MD Main - [facility] [address] [place] [phone] 12/22/2023 11:46:40 12/22/2023 15:15:53 Viral upper respiratory tract infection 053313336 J06.9 Health Concerns Section Related Observation LastModified by Organization Detai ls LastModified Time None Recorded Concern Status LastModified by Organization Details LastModified Time None Recorded Advance Directives Directive None Recorded Payers Encounter Date Sequence Insurance Name Policy Number Policy Tracy Covered Member ID Tracy Member ID Guarantor Name 09/01/2023 1 [facility] - DOS ON OR AFTER 2022 - DUAL ELIGIBLE - [facility] OPTIONS AND ONE CARE (MEDICARE REPLACEMENT/ADV ANTAGE - HMO) Geovanny Khoury [id number] Geovanny Khoury 12/22/2023 1 [facility] - DOS ON OR AFTER 2022 - DUAL ELIGIBLE - [facility] OPTIONS AND ONE CARE (MEDICARE REPLACEMENT/ADV ANTAGE - HMO) Geovanny Khoury [id number] Geovanny Khoury Notes Date Note Type Note [...] ..................... ..................... ..................... ..................... ..................... ..................... ............... Distribution Manager Note From David De La Torre: Pt [...] ml dark urine, clear, no sediment. At [facility] orders, troubleshooting the howe with flush and repositioning yields another 250ml urine in howe. [facility] orders BMP and UA. Values to [facility]. Pt offered at home treatment with fluid and antibiotics but requests transport to ED. Prashanth transports to [place] ED. ..................... ..................... ..................... ..................... ..................... ..................... ............... Disposition: Fulfilled Albert Mcclelland MD 30 [facility],[address], [place], [address], [email or web address] 09/02/2023 09:35:41 12/22/2023 text/html This was a super vised home visit with track grinder operator Bonnie Bishop. [facility] Nurse Triage Notes (Aaron Cuellar): [...] Chest Pain, HeadachePMH: COPD/Asthma, Hypertension, DiabetesAllergies: PenicillinComments: Granulizing Machine Operator verified the member's name//address and phone number. [...] for 3 days - Wellness check requested Distribution Manager POC Test Results from Bonnie Bishop - ALS Rapid COVID antigen (1) [12:53] COVID: - Rapid influenza antigen (1) [12:53] Flu: - Rapid strep test (1) [12:53] Strep: - ..................... ..................... ..................... ..................... ..................... ..................... ............... Distribution Manager Note From Bonnie Bishop: Sent to a call for a pt complaining of flu-like symptoms. SC8 arrives on scene, pt is alert and oriented, airway is patent. Pt's primary language is Jordanian. Family serves as artillery officer. Family states pt complains of flu-like symptoms [...] flu test: neg; Rapid strep test: neg; [facility] consulted and orders Toradol 30mg IM. Pt advised to use cough/cold medication, Tylenol 1gm TID, Albuterol inhaler to help with symptoms. Toradol 30mg IM administered without incident. Red flags discussed. Pt/family have no further questions. ..................... ..................... ..................... ..................... ..................... ..................... ............... Disposition: Fulfilled Nelson Younger MD [address] [facility],[address], [place], [address], [employer] [facility] [employer] 12/22/2023 13:07:31
== END ==
LOC: HO.SL 09:52
PROVIDERS: PCP Internal Medicine; Visit Provider Psychiatry & Neurology Neurology
DX: G47.10 Hypersomnia, unspecified (principal); R06.83 Snoring
CPT/HCPCS: 95806

== ENCOUNTER → 2024-10-03 10:02 | Outpatient (BNV) | payer OTHER, SELFPAY | PROVIDERS: PCP Internal Medicine; Visit Provider Psychiatry & Neurology Neurology | DX: G47.10 Hypersomnia, unspecified (principal); R06.83 Snoring | CPT/HCPCS: 95806 ==

== ENCOUNTER 2024-10-13 08:52 | Outpatient (AMB) | payer OTHER, SELFPAY ==
[2024-10-13 08:59] VITALS: PULSE 84; O2SAT 99; BMI 31.6
--- NOTE | 2024-10-13 08:59 | A.OFFVIS_ITS ---
Vital Signs 10/13/24 08:59 Height 5 ft 4 in Weight 184 lb BMI 31.6 Pulse 84 Pulse Source Pulse Oximeter Pulse Oximetry (%) 99 Oxygen Delivery Method Room Air Intake Visit Reasons: f/u Intake Note: patient presents for follow up Sleep study result. done on 10/03/24 Allergies aspirin [ASPIRIN] Allergy (Intermediate, Verified 10/13/24 09:01) RASH WITH HIGH DOSES Penicillins Allergy (Mild, Verified 10/13/24 09:01) HIVES phenytoin [From Dilantin] Allergy (Mild, Verified 10/13/24 09:01) BURNING SENSATION IN BODY butalbital [BUTALBITAL] Allergy (Unknown, Verified 10/13/24 09:01) HIVES thimerosal [THIMEROSAL] Allergy (Unknown, Verified 10/13/24 09:01) UNKNOWN doxycycline Adverse Reaction (Intermediate, Verified 10/13/24 09:01) penile rash? [place] Allergy (Unknown, Uncoded 10/13/24 09:01) Unknown MOTRIN Allergy (Unknown, Uncoded 10/13/24 09:01) hives Medication List - Last Reconciled 10/13/24 by Claire Acosta MD acetaminophen (Tylenol) 650 mg (2 x 325 mg) PO Q6H PRN [adult pull ups As directed] albuterol sulfate 90 mcg/actuation (Ventolin HFA) 2 puffs PO Q4-6H PRN amitriptyline 50 mg (2 x 25 mg) PO BEDTIME aspirin 81 mg PO DAILY atorvastatin 40 mg PO BEDTIME [bed rails As directed] cholecalciferol (vitamin D3) 2,000 units PO DAILY cyclobenzaprine 5 mg PO BEDTIME PRN fluticasone furoate-vilanterol 200-25 mcg/dose (Breo Ellipta) 1 inh inhalation DAILY FreeStyle Scott 3 Spearman (blood-glucose meter,continuous) As directed NS FreeStyle Scott 3 Sensor (blood-glucose sensor) As directed change every 14 days NS FreeStyle Precision Mike Strips (blood sugar diagnostic) Once daily as needed to check blood glucose when CGM reads high or low NS gabapentin 300 mg PO BID [Grab bars for bathroom As directed] [hand held shower As directed] hydrocortisone acetate (Anusol-HC) 25 mg OK BID insulin glargine (Lantus Solostar U-100 Insulin) 10 units (0.1 mL) subcut DAILY lancets (OneTouch UltraSoft 2 Lancet) DAILY levetiracetam 500 mg PO Q12H lisinopril 2.5 mg PO DAILY 90 days meclizine 25 mg PO TID PRN metformin 1,000 mg PO BID 90 days montelukast (Singulair) 10 mg PO BEDTIME 90 days nebulizer accessories As directed nebulizers (Compact Compressor Nebulizer) As directed omeprazole 20 mg PO DAILY 90 days pen needle, diabetic (BD Ultra-Fine Mini Pen Needle) As directed Inject LAntus 10 u QD [quad cane As directed] semaglutide (Ozempic) 2 mg (0.75 mL) subcut QWEEK sertraline 100 mg PO DAILY [shower chair As directed] [shower bench with back As directed] tramadol 50 mg PO BID PRN 30 days HPI Comments Details: 74y/o right handed male comes for follow up of vertigo, seizures,KELLY, headaches. His headaches are better with increase in amitriptyline dose but he takes it on a needed basis instead on everynight. His home sleep test was normal He has h/o seizures and was on phenytoin but now on levetiracetam 500mg bid . Last seizure was 1 year ago. 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 He was on dilantin which he stopped 8 years ago . He had a breakthrough seizure in Jul 2024. He also reports chronic vertigo and has increased recently.He also has tinnitus . He feels things are moving around often. He denies hallucinations. He reports headaches in the left frontoparietal region , that starts in the left neck.The headaches are moderate daily headaches and amitriptyline helps. [facility] Medical History Snoring Hypersomnia Nocturia Pre-syncope Unspecified disorder of ear Seizure Bladder wall thickening Incontinence Lower urinary tract symptoms Enlarged prostate Vertigo Other peripheral vertigo, unspecified ear Insulin long-term use Seizure Frequency of micturition Testicular pain Skin cyst Stroke Lipoma of abdominal wall History of carpal tunnel syndrome BERNARD positive Inguinal hernia, bilateral BPH (benign prostatic hyperplasia) Brain tumor Hypercholesterolemia Obstructive sleep apnea Vitamin D deficiency Obesity (BMI 30-39.9) Vitamin B12 deficiency GERD (gastroesophageal reflux disease) Grand mal seizure disorder Erectile dysfunction Osteoarthritis COPD (chronic obstructive pulmonary disease) Tennis elbow Calcaneal spur, right RLS (restless legs syndrome) Pulmonary nodule Insomnia Essential hypertension Diabetes mellitus with hyperglycemia Migraine Surgical History Hx of carpal tunnel repair History of diverticulosis Hx of colonoscopy History of elbow surgery Hx of foot surgery Hx of brain surgery History of partial gastrectomy History of right inguinal hernia repair Hx of prostate biopsy Family History Father Diabetes Throat cancer Heart disease Mother Ovarian cancer Social History Household Members: Spouse Housing: House Are you a primary home health care social worker to a significant other at home: No Do you presently have visiting nurse or other home services: Yes ([facility]) Alcohol intake: never Patient Tobacco Use Status: Never used Tobacco Tobacco use type: Cigarette e-Cigarette/Vaping Use: Never Used Second Hand Smoke Exposure: No Advance Directives Date on File: 06/13/21 service: No Current occupational status: retired Current occupation: rt handed Cognitive needs: No Hearing needs: No Vision needs: No Physical Exam Vital Signs: Last Vital Signs Pulse 84 10/13/24 08:59 Pulse Ox 99 10/13/24 08:59 Oxygen Delivery Method Room Air 10/13/24 08:59 BMI result Body Mass Index 31.6 Const General: cooperative, healthy appearing and comfortable Nutritional Appearance: average body habitus Orientation/consciousness: patient oriented x3 Eyes Pupils: Equal, round and reactive pupils present Neuro Other: Tightness and tenderness in left splenius, levator , trapezius General: patient oriented x3, gait normal, tone normal, moves all extremities a nd no focal motor deficits Cranial nerves: Yes Facial sensation intact/muscles of mastication intact, Yes Equal, round and reactive pupils present, Yes Bilaterally intact EOM present, Yes Nystagmus not present, Yes Normal facial strength present, Yes Midline tongue present, Yes Symmetric palate elevation present and Yes Ability to bilaterally elevate shoulders present Cognition (Neuro): normal cognition Gait exam (Neuro): Normal gait present Motor exam (neuro): 5/5 motor strength present throughout, no tremor noted and Normal motor muscle tone present throughout Coordination: [id number] test normal Assessment & Plan Assessment & Plan (1) Seizure: Code(s): R56.9 - Unspecified convulsions Category: Medical (2) Headache: Comment: MRI April 2020 Code(s): R51.9 - Headache, unspecified Category: Medical Qualifiers: Headache type: cervicogenic headache Qualified Code(s): G44.86 - Cervicogenic headache (3) Brain tumor: Comment: Surgery 1990 MRI, April 2021 Code(s): D49.6 - Neoplasm of unspecified behavior of brain Category: Medical (4) Snoring: Code(s): R06.83 - Snoring Category: Medical Plan continue amitriptyline 50mg qhs Levetiracetam 500mg bid gabapentin 300mg bid Declines PT He tried vestibular therapy but was told it was not BPV reviewed MRI and CT brain Coding Level of Care Code Est Pt Level 4 (27106) Diagnoses Seizure R56.9 Cervicogenic headache G44.86 Headache type: cervicogenic headache Brain tumor D49.6 Snoring R06.83
== END 2024-10-13 09:14 | disposition home or self-care (01) ==
PROVIDERS: PCP Internal Medicine; Visit Provider Psychiatry & Neurology Neurology
DX: R56.9 Unspecified convulsions (principal); G44.86 Cervicogenic headache; D49.6 Neoplasm of unspecified behavior of brain; R06.83 Snoring
CPT/HCPCS: 99214

== ENCOUNTER → 2024-10-13 08:52 | Outpatient (BNVA) | payer OTHER, SELFPAY | PROVIDERS: PCP Internal Medicine; Visit Provider Psychiatry & Neurology Neurology | DX: G47.33 Obstructive sleep apnea (adult) (pediatric) (principal); G44.86 Cervicogenic headache; R42 Dizziness and giddiness; R56.9 Unspecified convulsions; D49.6 Neoplasm of unspecified behavior of brain; R06.83 Snoring | CPT/HCPCS: 99212 ==

== ENCOUNTER 2024-11-01 09:58 | Outpatient (REF) | payer OTHER, SELFPAY ==
[2024-11-01 11:46] LABS: Prostate Specific Antigen 0.96 ng/mL (<0.05-4.0)
== END 2024-11-01 09:59 | disposition home or self-care (01) ==
LOC: HO.LAB 09:58
PROVIDERS: PCP Internal Medicine; Visit Provider Nurse Practitioner Family
DX: N40.0 Benign prostatic hyperplasia without lower urinary tract symptoms (principal); R39.9 Unspecified symptoms and signs involving the genitourinary system; R35.1 Nocturia; N32.89 Other specified disorders of bladder; Z12.5 Encounter for screening for malignant neoplasm of prostate
CPT/HCPCS: 36415; 84153

== ENCOUNTER 2024-11-22 10:48 | Outpatient (AMB) | payer OTHER, SELFPAY ==
[2024-11-22 10:51] VITALS: BMI 31.6
--- NOTE | 2024-11-22 10:51 | A.OFFVIS_ITS ---
Vital Signs 11/22/24 10:51 Height 5 ft 4 in Weight 184 lb BMI 31.6 Intake Visit Reasons: OV - right wrist OA, last injection 07/19/24 Intake Note: Geovanny is a 74 year old right hand dominant german speaking male who presents to the office today for a follow up visit for right wrist OA, last injection to his right wrist was done on 07/19/24. States injection helped for about 3 weeks and would like to repeat today. Bariatric Physician Name: Courtney ANDERSON LM Allergies aspirin [ASPIRIN] Allergy (Intermediate, Verified 11/22/24 10:54) RASH WITH HIGH DOSES Penicillins Allergy (Mild, Verified 11/22/24 10:54) HIVES phenytoin [From Dilantin] Allergy (Mild, Verified 11/22/24 10:54) BURNING SENSATION IN BODY butalbital [BUTALBITAL] Allergy (Unknown, Verified 11/22/24 10:54) HIVES thimerosal [THIMEROSAL] Allergy (Unknown, Verified 11/22/24 10:54) UNKNOWN doxycycline Adverse Reaction (Intermediate, Verified 11/22/24 10:54) penile rash? Charlotte Allergy (Unknown, Uncoded 11/22/24 10:54) Unknown MOTRIN Allergy (Unknown, Uncoded 11/22/24 10:54) hives HPI HPI OV - right wrist OA, last injection 07/19/24: Details: Geovanny is a 74 year old right hand dominant primarily [place] speaking Diabetic man who returns to discuss his right wrist OA. Again he is status post a proximal row carpectomy at an outside facility. He last received an injection on 07/19/24, with some relief for ~3 weeks. He continues to have pain and swelling about his wrist, worse with overuse or heavy lifting activities. His pain has worsened in the last few months and he is now wearing his wrist brace more often to help. He denies overusing is wrist, like he has before. His most recent HgA1c was 10.2% on 09/21/24. He denies any smoking or vaping. 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 [facility] Medical History Snoring Hypersomnia Nocturia Pre-syncope Unspecified disorder of ear Seizure Bladder wall thickening Incontinence Lower urinary tract symptoms Enlarged prostate Vertigo Other peripheral vertigo, unspecified ear Insulin long-term use Seizure Frequency of micturition Testicular pain Skin cyst Stroke Lipoma of abdominal wall History of carpal tunnel syndrome BERNARD positive Inguinal hernia, bilateral BPH (benign prostatic hyperplasia) Brain tumor Hypercholesterolemia Obstructive sleep apnea Vitamin D deficiency Obesity (BMI 30-39.9) Vitamin B12 deficiency GERD (gastroesophageal reflux disease) Grand mal seizure disorder Erectile dysfunction Osteoarthritis COPD (chronic obstructive pulmonary disease) Tennis elbow Calcaneal spur, right RLS (restless legs syndrome) Pulmonary nodule Insomnia Essential hypertension Diabetes mellitus with hyperglycemia Migraine Surgical History Hx of carpal tunnel repair History of diverticulosis Hx of colonoscopy History of elbow surgery Hx of foot surgery Hx of brain surgery History of partial gastrectomy History of right inguinal hernia repair Hx of prostate biopsy Family History Father Diabetes Throat cancer Heart disease Mother Ovarian cancer Social History Household Members: Spouse Housing: House Are you a primary assistant child care teacher to a significant other at home: No Do you presently have visiting nurse or other home services: Yes ([facility]) Alcohol intake: never Patient Tobacco Use Status: Never used Tobacco Tobacco use type: Cigarette e-Cigarette/Vaping Use: Never Used Second Hand Smoke Exposure: No Advance Directives Date on File: 06/13/21 service: No Current occupational status: retired Current occupation: rt handed Cognitive needs: No Hearing needs: No Vision needs: No Physical Exam Vital Signs: BMI result Body Mass Index 31.6 Const General: no acute distress and alert Orientation/consciousness: patient oriented x3 Neuro General: patient oriented x3 Extrem Other: Evaluation of Right Upper Extremity: Neuro: Median, ulnar, radial nerves motor and sensory grossly intact with normal sensation to all digits. No thenar or intrinsic wasting. Vascular: Cap refill brisk. ROM: He can make a fist and he can extend all of his digits. No locking or catching He does have some arthritic changes in his digits Right wrist ROM ~40 degrees of extension and ~30-40 degrees of flexion. Good prono-supination Tenderness over the dorsal radial aspect of his wrist/radiocarpal joint Mild swelling about the wrist Skin: He has a well-healed longitudinal scar over the dorsal aspect of his wrist. No erythema, warmth or evidence of infection Radiographs: 3 views of the right wrist from 08/26/23 were reviewed by me today in clinic. They show that he has had a proximal row carpectomy. Radiographs are also showing some loss of space at the radial capitate joint. Significant atherosclerosis. He has some early basal joint arthritis. Psych Appearance: grossly normal Affect: normal affect Attitude: cooperative Office Procedures AMB Fracture Care Details: No fracture, injection , [id number] using the FluoroScan for needle guidance Fracture Billing Code: Fracture Billing Code Assessment & Plan Assessment & Plan (1) Arthritis of right wrist: Code(s): M19.031 - Primary osteoarthritis, right wrist Category: Medical (2) Status post proximal row carpectomy of wrist: Code(s): Z98.890 - Other specified postprocedural states Category: Medical (3) Diabetes mellitus with hyperglycemia: Comment: [facility] Ophthamology Code(s): E11.65 - Type 2 diabetes mellitus with hyperglycemia Category: Medical Qualifiers: Diabetes mellitus correction insulin use: with exterminator termite use Diabetes mellitus type: type 2 Qualified Code(s): E11.65 - Type 2 diabetes mellitus with hyperglycemia; Z79.4 - skilled nursing (current) use of insulin Plan Assessment & Plan: 1. Right wrist osteoarthritis, S/P injection Date of injection: 11/22/24, 07/19/24, 03/16/24, 08/26/23 2. S/P right proximal row carpectomy DOS: ~2018 at [facility] 3. S/P right carpal tunnel release DOS: ~2017 at [facility] Normal sensation in median nerve distribution today. I educated the patient and his about these conditions We talked about the importance of activity modification. I reminded him that while his proximal row carpectomy help preserve motion and decreased his pain, he does not have a normal wrist. I reminded him that heavy or impact type activities are likely to cause him pain. He has braces at home to use when symptomatic. At this point surgical options would likely involve a fairly large procedure like a total wrist arthrodesis which would severely limit his right wrist range of motion and use. He understands that a wrist arthrodesis is only to be undertaken if absolutely necessary. The patient would like to proceed with a repeat injection today Injection #1: The risks and benefits of a steroid injection including but not limited to risk of damage to blood vessels, nerve, tendon, infection, skin bleaching, persistent or worsening pain, and failure to improve symptoms were discussed with the patient and they wish to proceed with the steroid injection. Once consent was obtained the skin over the dorsum of the Right wrist was sterilely prepped. The joint was then injected with a combination of 1 mL of (40 mg/ml} Depo-Medrol and 1% plain Lidocaine, using the mini C-arm for needle guidance. The patient appears to have tolerated the procedure well and with no complications. He had good early relief before leaving clinic today. He knows that they may not have another steroid injection into this joint for least 4 months. Please note that greater than 40 minutes was spent with this patient going over the history, evaluating the patient and radiographs, formulating possible treatment options, discussing them with the patient, and documenting the visit. Scribed for Zulema Overton MD by Deangelo Rodriguez medical oncologist, on 11/22/24 at 11:05 AM, EST. Orders: Orders FL guided needle placement Today M19.031 - Primary osteoarthritis, right wrist, Z98.890 - Other specified postprocedural states Coding Level of Care Code Est Pt Level 3 (82566) Diagnoses Arthritis of right wrist M19.031 Status post proximal row carpectomy of wrist Z98.890 Type 2 diabetes mellitus with hyperglycemia, with long-term current use of insulin E11.65; Z79.4 Diabetes mellitus correction insulin use: with correction use Diabetes mellitus type: type 2 CPT Codes Fracture Care - Fracture Billing Code: Fracture Billing Code ([id number])
--- OUTSIDE RECORDS SUMMARY | 2024-11-22 13:09 | XMS_ITS ---
Author Organization [facility] Address [address] [place] [phone] Care Team Providers Care Body Trimmer Name Role Phone Den Leal MD Primary Care Provider Bonifacio Damon [phone] REASON FOR VISIT Patient presents today for a recall colonoscopy Encounters Encounter Location Date Provider Diagnosis [facility] [address] [facility] [address] [place] [phone] 07/19/2024 Bonifacio Camejo Plan Of Treatment Next Appt Details Provider Name:Bonifacio Camejo , 12/12/2024 01:20:00 PM, [address] [place] [address], [phone], Progress Notes * BILL PRITCHETTDOB: (74 yo M)Acc No.[id number]:07/19/2024 Progress Notes Patient:?BILL PRITCHETT Provider:?Bonifacio Camejo MD :1950???Age:74 Y???Sex:Male Trace e:07/19/2024 Address:[address] [place], [place] [phone] Pcp:Den Leal MD Subjective: * Chief Complaints: [...] MD Date:? 024 Generated for Mukund ceballos/Bryan/eTransmitting on:?11/22/2024 01:09 PM EDT
--- OUTSIDE RECORDS SUMMARY | 2024-11-22 13:10 | XMS_ITS | Clinical Summary ---
Author Organization [facility] Address [address] [place] [address] Phone Care Team Providers Care Underwriter Mortgage Loan Name Role Phone Den Leal MD Primary Care Provider [phone] Allergies Active Allergy Reactions Criticality Noted Date [...] test strip 5 Active FreeStyle Scott 3 Perry misc See administration instructions. 4 Active FreeStyle [...] 10:00 AM EDT Consult Orthopedic Surgery - [place] [facility] [address] [place] [phone] Madelyn Salcedo PA Carpal tunnel syndrome, bilateral [...] 10:00 AM EDT Office Visit Orthopedic Surgery [facility] [address] [place] [phone] Madelyn Salcedo PA [address] [facility] [address] [place] [phone] Health Maintenance Due Date Last Done Comments [...] (3 of 3) 08/18/2024 06/23/2024, 10/1 01/2014 COVID-19 Vaccine ( season) 2024 04/12/2024, 04/24/2022, 05/20/2021, Additional history exists Diabetes: Annual Urine Albumin-Creatinine Ratio (uACR) 10/25/2024 Diabetes: Blood Sugar Control Test (HGBA1C) 10/25/2024 DTaP,Tdap,and Td Vaccines (2 - Td or Tdap) 06/11/2025 06/11/2015 Pneumococcal Vaccine: 50+ Years Completed 11/22/2021, 05/27/2018, 08/08/2016, Additional history exists Influenza Vaccine Completed 05/23/2024, , 08/22/2021, Additional history exists RSV Immunization Adult Patients Completed 06/23/2024 HIB Vaccines Aged Out No [...] age to complete this topic Meningococcal B Vaccine Aged Out No l onger eligible based on patient's age to complete [...] Resul t from Last 3 Months Insurance [employer] MEDICARE Member Subscriber Plan / Payer (Ef fective 2024-Present) Name:Geovanny Khoury Relation to Subscriber:Self Name:Geovanny Khoury Payer ID:[id number] Group ID:[id number] Type:Not on file Address: [address] [place] [address] Care Teams Underwriter Mortgage Loan Relationship Specialty Start Date End Date Den Leal MD [address] [place] [address] [address] [facility] [place] [address] PCP - General Internal Medicine 09/10/11
--- OUTSIDE RECORDS SUMMARY | 2024-11-22 13:10 | XMS_ITS | Data Portability ---
Author Organization [employer] [place] [facility] Address [address] [place] [address] Care Team Providers Care Motor And Controls Tester Name Role Phone HIM CCA OTHER Assessment Encounter Date Assessment Date Assessment LastModified by Organization Details LastModified Time 12/22/2023 12/22/2023 I have reviewed and agree with the assessment and plan as documented by the real estate executive assistant. I provided real time medical direction for this encounter and was immediately available to provide additional phone based assistance as needed. History as noted by real estate executive assistant. Pt with history of COPD, reports 3 [...] QL IA, respiratory specimen [address], [address] [place] [address] 4 12:14:18 rapid flu (A+B) [address], [address] [place] [address] 4 12:14:19 rapid strep group A, throat 2023 024 btils [facility], [address] [place] [address], [address] [place] [address] 12:14:16 Referral None recorded. Procedures None recorded. Surgeries None recorded. Imaging None recorded. Medication Orders ketorolac 30 mg/mL (1 mL) [facility] 11:53:48 Patient TargetsNo targets recorded. Patient InstructionsNo instructions recorded. Reason for Referral None Reported. Results Created Date Observation Date Name Description Value Unit Range Abnormal Flag Note LastModifiedBy Organization Detail LastModifiedTime 12/22/1912/22/2023 rapid strep group A, throa t Strep negati ve Not Available [facility] ed [address] [place] [address], [address] [place] [address] 12/22/2023 12:13:37 12/22/19 24 12/22/2023 rapid flu (A+B) Flu negati ve Not Available [facility] ed [address] [place] [address], [address] [place] [address] 12/22/2023 12:13:32 12/22/19 24 12/22/2023 rapid SARS CoV 2 Ag, QL IA, respi rator y speci men rapid SARS CoV 2 Ag, QL IA, respiratory specimen negati ve Not Available [facility] ed [address] [place] [address], [address] [place] [address] 12/22/2023 12:13:28 Result Notes None recorded. Medical Equipment None Reported. Allergies Allergen ID Allergen Name Allergen Category Reaction Reaction Severity Criticality Documentation Date Start Date Code Code System Note Provider Name and Address Organization Details Recorded Time 4832 Product containin g penicilli n (product) medicatio n Not available Not available Not available 06/07/2024 84885 8001 SNOMED Not Available [employer] [facility] [employer] 4 03:34:25 Medications Name Sig Start Date Stop [...] % 98 % 152.4 cm 84 /min 63082.8 g 14 /min 98.4 [degF] 130 mm[Hg] 84 mm[Hg] Not Available [employer] 4 20:17:11 Date Recorded Oxygen saturation Oxygen saturation in Arterial blood by Pulse oximetry Heart rate Body temperature Respiratory rate Body weight Body height Systolic blood pressure Diastolic blood pressure Provider Name and Address Organization Details Last Updated DateTime 4 98 % 98 % 78 /min 97.7 [degF] 18 /min 68957.5 6 g 162.56 cm 117 mm[Hg] 72 mm[Hg] Not Available [employer] 4 11:46:45 Social History None recorded. Functional Status None recorded. Mental Status None recorded. Family History Nothing Reported. Medical History No medical history recorded. 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 Evaluation in the field was performed by my real estate executive assistant colleague, as noted above, I provided real-time [...] to ED for repeat eval Primary care, considerch fariha in call this week. [id number] Nelson Younger MD Main - [address] [address] 12/22/2023 11:46:40 12/22/2023 15:15:53 Viral upper respiratory tract infection 985166530 J06.9 Health Concerns Section Related Observation LastModified by Organization Musa ls LastModified Time None Recorded Concern Status LastModified by Organization Details LastModified Time None Recorded Advance Directives Directive None Recorded Payers Encounter Date Sequence Insurance Name Policy Number Policy Tracy Covered Member ID Tracy Member ID Guarantor Name 09/01/2023 1 [facility] - DOS ON OR AFTER 2022 - DUAL ELIGIBLE - LONG-TERM OPTIONS AND ONE CARE (MEDICARE REPLACEMENT/ADV ANTAGE - HMO) Geovanny Khoury [id number] Geovanny Khoury 12/22/2023 1 [facility] - DOS ON OR AFTER 2022 - DUAL ELIGIBLE - LONG-TERM OPTIONS AND ONE CARE (MEDICARE REPLACEMENT/ADV ANTAGE - HMO) Geovanny Khoury [id number] Geovanny Khoury Notes Date Note Type Note [...] ..................... ..................... ..................... ..................... ..................... ..................... ............... Laser Print Operator Note From David De La Torre: Pt caox3 complains of lower diffuse abdominal pain x [...] ml dark urine, clear, no sediment. At [facility] orders, troubleshooting the howe with flush and repositioning yields another 250ml urine in howe. [facility] [place] [place] orders BMP and UA. Values to [facility] [place] [place]. Pt offered at home treatment with fluid and antibiotics but requests transport to ED. Prashanth MCCLOUD transports to [facility]. ..................... ..................... ..................... ..................... ..................... ..................... ............... Disposition: Fulfilled Albert Mcclelland MD [address] [place] [address],[address], [place], [address], [employer] 09/02/2023 09:35:41 12/22/2023 text/html This was a super vised home visit with real estate executive assistant Bonnie Bishop. [facility] Nurse Triage Notes (Aaron Cuellar): Patient [...] Chest Pain, HeadachePMH: COPD/Asthma, Hypertension, DiabetesAllergies: PenicillinComments: Forming Yardage Control Operator verified the member's name//address and phone [...] for 3 days - Wellness check requested Laser Print Operator POC Test Results from Bonnie Bishop - ALS Rapid COVID antigen (1) [12:53] COVID: - Rapid influenza antigen (1) [12:53] Flu: - Rapid strep test (1) [12:53] Strep: - ..................... ..................... ..................... ..................... ..................... ..................... ............... Laser Print Operator Note From Bonnie Bishop: Sent to a call for a pt complaining of flu-like symptoms. SC8 arrives on scene, pt is alert and oriented, airway is patent. Pt's primary language is Kyrgyz. Family serves as diplomatic interpreter/translator. Family states pt complains of flu-like symptoms [...] flu test: neg; Rapid strep test: neg; [facility] [place] [place] consulted and orders Toradol 30mg IM. Pt advised to use cough/cold medication, Tylenol 1gm TID, Albuterol inhaler to help with symptoms. Toradol 30mg IM administered without incident. Red flags discussed. Pt/family have no further questions. ..................... ..................... ..................... ..................... ..................... ..................... ............... Disposition: Fulfilled Nelson Younger MD [address] [facility],[address], [place], [address], [employer] 12/22/2023 13:07:31
--- OUTSIDE RECORDS SUMMARY | 2024-11-22 13:10 | XMS_ITS ---
Author Organization [facility] Address [address] [place] [address] Care Team Providers Care Eeg Tech Name Role Phone Po Den CARLIN Primary Care Provider Bonifacio Damon [phone] Allergies Allergen (clinical drug ingredient) Drug/Non Drug Allergy documented on EMR Reaction Allergy Type Onset Date Status Thimerosal Unknown Drug Allergy Active acetaminophen / oxycodone Percocet hives Drug Allergy Active Motrin Unknown Drug Allergy Active phenytoin Dilantin Unknown Drug Allergy Active Charlotte hives Drug Allergy Active Penicillin itchyness/hives Drug Allergy Active REASON FOR VISIT Patient [...] Problem History of polyp of colon (situation) (041611224) Personal history of colonic polyps (Z86.010) Active confirmed Problem Dysphagia (32495796) Dysphagia (R13.10) Active confirmed Vital Signs Blood pressure systolic 111 mm Hg 11/05/19 25 Blood pressure diastolic 11 mm Hg 025 Height 67 in 11/04/2024 Weight 181 lbs 11/04/2024 BMI 28.35 kg/m2 11/04/2024 Procedures Procedure Date Ordered Date Performed Result Body Sit e UPPER GI ENDOSCOPY BALLOOON DILATION OF ESOPH 11/04/2024 N/A COLONOSCOPY 11/04/2024 N/A Encounters Encounter Location Date Provider Diagnosis [facility] [address] [place] [address] 11/04/2024 Bonifacio Camejo Colon cancer screening Z12.11 ; Dysphagia R13.10 and Personal history of colonic polyps Z86.010 Assessments Encounter Date Diagnosis (ICD Code) Assessment [...] ESOPH 11/04/2024 COLONOSCOPY 11/04/2024 Next Appt Details Follow Up: prn, Reason: Provider Name:Bonifacio Camejo , 12/12/2024 01:20:00 PM, [address] [place] [address] , [place], [place], [phone], Progress Notes * SANDRA PRITCHETT: 2 (74 yo M)Acc No.[id number]:11/04/2024 Progress Notes Patient:?GEOVANNY PRITCHETT Provider:?Bonifacio Camejo MD :1950???Age:74 Y???Sex:Male Trace e:11/04/2024 Address:[address] [place] [address] Pcp:Den Leal MD Subjective: * Chief Complaints: * ???Patient presents today fo r a recall colonoscopy * HPI: ???incontinence:? I saw Geovanny in the office today for evaluation of issues with dysphagia, his personal history of a tubular adenoma of the colon, and need [...] revealed a hemoglobin of 11.9, MCV 87, WBC?count 10.8, platelet count 281,000, normal chemistries and renal function, and a normal liver profile.Laboratories in July 2024 revealed a hemoglobin that was 12.5. * ROS:?General/Constitutional:?Change in appetite?denies.?Chills?denies.?Fatigue?denies.?Ophthalmologic:?Patient denies? Negative..?ENT:?Patient denies?Negative..?Respiratory:?Patient denies?No coughing/hemoptysis..?Cardiovascular:?Patient denies? No chest pain/orthopnea..?Gastrointestinal:?Comments?See HPI for details.?Genitourinary:?Patient denies? No dysuria/hematuria..?Musculoskeletal:?Patient denies? No specific arthralgias/myalgias..?Skin:?Patient denies?No rash/pruritus..?Neurologic:?Patient denies? No headaches/seizures..?Psychiatric:?Patient denies?Negative..? * Medical History:? * Surgical History:?Subtotal g astrectomy with Billroth II in November 1990 for PUD Hernia repair 1990Heel surgery Brain tumor removed 1990Elbow surgery Neck surgery Cataracts * Hospitalization/Major Diagno stic Procedure:?No Hospitalization History. * Family History:?Father: dece ased.?Mother: .? No colorectal cancer. * Social History:?Tobacco Use:?Tobacco Use/Smoking?Are you a: nonsmoker.?Drugs/Alcohol:?Alcohol Screen?Points: 0, Interpretation: Negative.?Miscellaneous:?Marital status: . Occupation: disabled. ???Nonsmoker; no alcohol. * Medications:?TakingAmitripty line HCl 25 MG Tablet as directed Orally three times a day Meclizine HCl 25 MG Tablet 1 tablet as needed Orally as needed 3 times a day levETIRAcetam 500mg 1 tablet Orally Twice a day ProAir HFA 108 (90 Base) MCG/ACT Aerosol Solution 1 puff as needed Inhalation every 4 hrs Aspirin 81 81 MG Tablet Chewable 1 tablet Orally Once a day metFORMIN HCl 1000 MG Tablet 1 tablet with a meal Orally twice a day Lantus SoloStar 100 UNIT/ML Solution Pen-injector ADM 20 UNI SC QD Subcutaneous Breo Ellipta 200-25 MCG/INH Aerosol Powder Breath Activated INL 1 PUFF PO QD Inhalation Cyanocobalamin 1000 MCG Tablet 1 tablet Orally Once a day Divalproex Sodium ER 250 MG Tablet Extended Release 24 Hour 1 tablet Orally Once a day Levocetirizine Dihydrochloride 5 MG Tablet 1 tablet in the evening Orally Once a day Atorvastatin Calcium 40 MG Tablet Oral Ozempic (2 MG/DOSE) 8 MG/3ML Solution Pen-injector Subcutaneous Insulin Glargine-yfgn 100 UNIT/ML Solution Pen- injector INJECT 10 UNITS SUBCUTANEOUSLY DAILY Subcutaneous Taking Amitriptyline HCl 25 MG Tablet as directed Orally three times a day Taking Meclizine HCl 25 MG Tablet 1 tablet as needed Orally as needed 3 times a day Taking levETIRAcetam 500mg 1 tablet Orally Twice a day Taking ProAir HFA 108 (90 Base) MCG/ACT Aerosol Solution 1 puff as needed Inhalation every 4 hrs Taking Aspirin 81 81 MG Tablet Chewable 1 tablet Orally Once a day Taking metFORMIN HCl 1000 MG Tablet 1 tablet with a meal Orally twice a day Taking Lantus SoloStar 100 UNIT/ML Solution Pen-injector ADM 20 UNI SC QD Subcutaneous Taking Breo Ellipta 200-25 MCG/INH Aerosol Powder Breath Activated INL 1 PUFF PO QD Inhalation Taking Cyanocobalamin 1000 MCG Tablet 1 tablet Orally Once a day Taking Divalproex Sodium ER 250 MG Tablet Extended Release 24 Hour 1 tablet Orally Once a day Taking Levocetirizine Dihydrochloride 5 MG Tablet 1 tablet in the evening Orally Once a day Taking Atorvastatin Calcium 40 MG Tablet Oral Taking Ozempic (2 MG/DOSE) 8 MG/3ML Solution Pen-injector Subcutaneous Taking Insulin Glargine-yfgn 100 UNIT/ML Solution Pen-injector INJECT 10 UNITS SUBCUTANEOUSLY DAILY Subcutaneous Not-Taking/PRNIbuprofen 600 MG Tablet 1 tablet with food or milk as needed Orally Three times a day Not-Taking/PRN Ibuprofen 600 MG Tablet 1 tablet with food or milk as needed Orally Three times a day DiscontinuedDULoxetine HCl 30 MG Capsule Delayed Release Particles TAKE 1 CAPSULE BY MOUTH EVERY DAY FOR 30 DAYS Oral Gabapentin 100 MG Capsule TK 1 C PO QD Oral Sildenafil Citrate 50 MG Tablet 1 tablet as needed Orally Once a day Polyethylene Glycol - Powder as directed Januvia 100 MG Tablet as directed Orally Once a day Trulicity 0.75 MG/0.5ML Solution Pen- injector INJECT 1 PEN SUBCUTANEOUSLY WEEKLY Subcutaneous Lisinopril 2.5 MG Tablet TK 1 T PO QD Oral Sertraline HCl 50 MG Tablet TK 1 T PO QD Oral Meloxicam 15 MG Tablet TK 1 T PO QD Oral HYDROcodone-Acetaminophen 5-325 MG Tablet 1 tablet as needed Orally every 6 hrs tiZANidine HCl 4 MG Tablet 1 tablet as needed Orally Three times a day Topiramate 50 MG Tablet 2 tablet Orally Once a day Omeprazole 20 MG Capsule Delayed Release 1 capsule 30 minutes before morning meal Orally Once a day Dicyclomine HCl 10 MG Capsule TAKE 1 TO 2 CAPSULES BY MOUTH 4 TIMES DAILY NEEDED FOR ABDOMINAL PAIN/CRAMPS. Medication List reviewed and reconciled with the patientDiscontinued DULoxetine HCl 30 MG Capsule Delayed Release Particles TAKE 1 CAPSULE BY MOUTH EVERY DAY FOR 30 DAYS Oral Discontinued Gabapentin 100 MG Capsule TK 1 C PO QD Oral Discontinued Sildenafil Citrate 50 MG Tablet 1 tablet as needed Orally Once a day Discontinued Polyethylene Glycol - Powder as directed Discontinued Januvia 100 MG Tablet as directed Orally Once a day Discontinued Trulicity 0.75 MG/0.5ML Solution Pen-injector INJECT 1 PEN SUBCUTANEOUSLY WEEKLY Subcutaneous Discontinued Lisinopril 2.5 MG Tablet TK 1 T PO QD Oral Discontinued Sertraline HCl 50 MG Tablet TK 1 T PO QD Oral Discontinued Meloxicam 15 MG Tablet TK 1 T PO QD Oral Discontinued HYDROcodone-Acetaminophen 5-325 MG Tablet 1 tablet as needed Orally every 6 hrs Discontinued tiZANidine HCl 4 MG Tablet 1 tablet as needed Orally Three times a day Discontinued Topiramate 50 MG Tablet 2 tablet Orally Once a day Discontinued Omeprazole 20 MG Capsule Delayed Release 1 capsule 30 minutes before morning meal Orally Once a day Discontinued Dicyclomine HCl 10 MG Capsule TAKE 1 TO 2 CAPSULES BY MOUTH 4 TIMES DAILY NEEDED FOR ABDOMINAL PAIN/CRAMPS. Medication List reviewed and reconciled with the patient * Allergies:?Penicillin: itchy ness/hivesAllegra: hivesPercocet: hivesDilantinMotrinThimerosalyes[Allergies Verified] Objective: * Vitals:?Wt:181lbs, Ht: 67 in , BMI:28.35Index, BP:111/11mm Hg, Wt-k.1. * Examination: ???General Examination: ?GENERAL APPEARANCE:?pleasant, well nourished, well developed, in no acute distress.?EYES:?sclera non-icteric.?ORAL CAVITY:?mucosa moist.?NECK/THYROID:?no cervical lymphadenopathy, neck supple.?SKIN:?nonjaundiced, no spider angiomata..?HEART:?S1, S2 normal.?LUNGS:?clear to auscultation bilaterally.?ABDOMEN:?normal bowel sounds, no guarding or rigidity, no hepatosplenomegaly, no masses palpable, soft, nontender, nondistended..?EXTREMITIES:?no edema.?NEUROLOGIC:?alert and oriented.? Assessment: * Assessment: 1.?Dysphagia - R13.10 (Prima ry)???2.?Colon cancer screening - Z12.11???3.?Personal history of colonic polyps - Z86.010??? Overall, Geovanny appears well from a clinical [...] advised of his progress. Plan: * Treatment: 2.?Colon cancer screening?Procedure: COLONOSCOPY* with MAC.Do not take any met formin the night before or the morning of the procedures.Do not take any Ozempic for at least 7 days before the procedures.Take only one half your usual dose of insulin the night before and the morning of the procedures.Do not take any aspirin for 1 week before the procedures. 3.?Personal history of colonic polyps?Procedure: COLONOSCOPY* with MAC.Do not take any met formin the night before or the morning of the procedures.Do not take any Ozempic for at least 7 days before the procedures.Take only one half your usual dose of insulin the night before and the morning of the procedures.Do not take any aspirin for 1 week before the procedures. * Procedure Codes:?81151 DIAGN OSTIC [id number] ESOPHAGUS [id number] COLORECTAL CA SCREEN DOC WUL5918A TOBACCO NON-NPBTV8455 BP SCR NOT PRFRM REC REASON WTE0065H RCMND FLW-UP 10 YRS DOCD * Preventive Medicine:? ??Counseling:?Care goal follow-up plan:?Above Normal BMI Follow-up?Giving encouragement to exercise,?BMI management provided?Yes.? ??Screenings:?Fall Risk Screening?Fall Risk Assessment:?No falls in the past year,?Screening:?No falls in the past year,?Assessment:?Not performed, no reason specified,?Plan of Care:?Not documented, no reason specified.? * Follow Up:?prn * * Sign off status: Completed true * Provider:?Bonifacio Camejo MD Date:? 025 Generated for Emelyni tucker/Bryan/eTransmitting on:?11/22/2024 01:09 PM EDT History and Physical Notes * Examination Category Sub-Category Detail Notes Category Not es General Examination GENERAL APPEARANCE: pleasant , well nourished, well developed, in no acute distress EYES: sclera non-icteric NECK/THYROID: no cervical lymphade nopathy, neck supple HEART: S1, S2 normal LUNGS: clear to auscultatio n bilaterally ABDOMEN: normal bowel sounds, no guarding or rigidity, no hepatosplenomegaly, no masses palpable, soft, nontender, nondistended. NEUROLOGIC: alert and oriented SKIN: nonjaundiced, no spi angi angiomata. EXTREMITIES: no edema ORAL CAVITY: mucosa moist
--- OUTSIDE RECORDS SUMMARY | 2024-11-22 13:10 | XMS_ITS ---
Author Organization [facility] Address [address] [place] [address] Care Team Providers Care Encyclopedia Research Worker Name Role Phone Den Leal MD Primary Care Provider Bonifacio Damon [phone] REASON FOR VISIT bowel prep Encounters Encounter Location Date Provider Diagnosis [facility] [address] [place] [address] 11/04/2024 Bonifacio Camejo Plan Of Treatment Next Appt Details Provider Name:Bonifacio Camejo , 12/12/2024 01:20:00 PM, [address] [place] [address] , [place], [place], [phone], Progress Notes * BILL PRITCHETTDOB: (74 yo M)Acc No.[id number]:11/04/2024 Patient:?BILL PRITCHETT :1950???Age:74 Y???Sex:Male Address:[address] [place] [address] * * Date:?
--- OUTSIDE RECORDS SUMMARY | 2024-11-22 13:10 | XMS_ITS | Patient Health Record ---
Author Organization [facility] Address [address] [place] [address] Care Team Providers Care Bunch Breaker Name Role Phone Po Den CARLIN Primary Care Provider Bonifacio Damon [phone] Allergies Allergen (clinical drug ingredient) Drug/Non Drug Allergy documented on EMR Reaction Allergy Type Onset Date Status Thimerosal Unknown Drug Allergy Active acetaminophen / oxycodone Percocet hives Drug Allergy Active Motrin Unknown Drug Allergy Active phenytoin Dilantin Unknown Drug Allergy Active Charlotte hives Drug Allergy Active Penicillin itchyness/hives Drug Allergy Active Reason For Referral No [...] Problem Status W/U Status Risk Notes Problem 405494341 Encounter for screening for malignant neoplasm of colon (Z12.11) Active confirmed Problem 017221373 History of adenomatous polyp of colon (Z86.010) Active confirmed Problem History of polyp of colon (situation) (753758890) Personal history of colonic polyps (Z86.010) Active confirmed Problem 465736313 Generalized abdominal pain (R10.84) Active confirmed Problem Dysphagia (83886802) Dysphagia (R13.10) Active confirmed Problem 085665896 Elevated liver function tests (R79.89) Active confirmed Problem 636014721 Elevated liver enzymes (R74.8) Active confirmed Problem 38500228 Constipation, unspecified constipation type (K59.00) Active confirmed Problem 504617214 Positive BERNARD (antinuclear antibody) (R76.8) Active confirmed Problem 840155739 BERNARD positive (R76.8) Active confirmed Vital Signs Blood pressure diastolic 11 mm Hg 11/04/2024 Height 67 in 11/04/2024 Blood pressure systolic 111 mm Hg 11/04/2024 Weight 181 lbs 11/04/2024 BMI 28.35 kg/m2 11/04/2024 Procedures Procedure Date Ordered Date Performed Result Body Sit e UPPER GI ENDOSCOPY BALLOOON DILATION OF ESOPH 11/04/2024 N/A COLONOSCOPY 11/04/2024 N/A Encounters Encounter Location Date Provider Diagnosis [facility] [address] [place] [address] 11/04/2024 Bonifacio Camejo Colon cancer screening Z12.11 ; Dysphagia R13.10 and Personal history of colonic polyps Z86.010 [facility] [address] [place] [address] 11/04/2024 Bonifacio Camejo Assessments Encounter Date Diagnosis [...] OF ESOPH 11/04/2024 COLONOSCOPY 11/04/2024 LIVER PROFILE 06/26/2020 LIVER PROFILE 01/07/2020 LIVER PROFILE 03/06/2020 CERULOPLASMIN 12/13/2019 PROTEIN ELECTROPHORESIS, SERUM 0 FLUOR. ANTINUCLEAR AB SCREEN (WANG) 12/10 Future Test Test Name Order Date COLONOSCOPY 09/09/2018 Next Appt Details Provider Name:Bonifacio Camejo , 12/12/2024 01:20:00 PM, [address] [place] [address] , [place], [place], [phone], Insurance Providers Payer Name Payer Address Payer Phone Subscriber Number Group Number Insured Name Patient Relationship to Insured Coverage Start Date Coverage End Date [facility] [address] Attn Claims ROD[place]IGO King [id number] GEOVANNY PRITCHETT Self - patient is the insured MEDICAID OF [employer] [address] [place] [address] [id number] GEOVANNY PRITCHETT Self - patient is the insured Medical (General) History Medical History History ICD Code Colonoscopy 06-02-2008- small tubular a denoma removed He had a neg colonoscopy in 08/[address] Neri History of peptic ulcer disease-s/p B-II in [place] Denies [place],CVA,renal disease Neg EGD with Dr. Neri in [...]
== END 2024-11-22 11:32 | disposition home or self-care (01) ==
LOC: HO.HOS 10:48
PROVIDERS: PCP Internal Medicine; Visit Provider Orthopaedic Surgery
DX: M19.031 Primary osteoarthritis, right wrist (principal); E11.65 Type 2 diabetes mellitus with hyperglycemia; Z79.4 Long term (current) use of insulin
CPT/HCPCS: 20606; 99213

== ENCOUNTER 2024-11-22 10:48 | Outpatient (REF) | payer OTHER, SELFPAY ==
--- NOTE | ~2024-11-22 | FL_ITS ---
EXAMINATION: XR FLUOROSCOPY WITH IMAGES CLINICAL INFORMATION: Right wrist pain management injection. COMPARISON: None available. TECHNIQUE: Fluoroscopy provided to: Dr. Overton Fluoroscopy time: 9.5 seconds DAP: 5730.3 uGycm2 Images: 1 FINDINGS: Solitary image taken during right wrist pain management injection. Please refer to the full procedural report for details. FL/FL guided needle placement IMPRESSION: Fluoroscopic guidance. Electronically signed by: Miguel Cowan MD 11/24/2024 08:48 AM EDT
--- OUTSIDE RECORDS SUMMARY | 2024-11-22 13:31 | XMS_ITS | Clinical Summary ---
Author Organization 175 [facility] Address [address] [place] [address] Phone Care Team Providers Care Sack Lifter Name Role Phone Den Leal MD Primary Care Provider [phone] Allergies Active Allergy Reactions Criticality Noted Date [...] test strip 5 Active FreeStyle Scott 3 Callender misc See administration instructions. 4 Active FreeStyle [...] 10:00 AM EDT Consult Orthopedic Surgery - [place] 175 [facility] [address] [place] [phone] Madelyn Salcedo PA Carpal tunnel syndrome, bilateral [...] 10:00 AM EDT Office Visit Orthopedic Surgery [facility] [address] [place] [phone] Madelyn Salcedo PA [address] [facility] [address] [place] [phone] Health Maintenance Due Date Last Done Comments [...] Group ID:[id number] Type:Not on file Address: [address] [place] [address] Care Teams Sack Lifter Relationship Specialty Start Date End Date Den Leal MD [address] [place] [address] [address] [facility] [place] [address] PCP - General Internal Medicine 09/10/11
== END 2024-11-22 10:49 | disposition home or self-care (01) ==
LOC: HO.HOSX 10:48
PROVIDERS: PCP Internal Medicine; Visit Provider Orthopaedic Surgery
DX: M19.031 Primary osteoarthritis, right wrist (principal); E11.65 Type 2 diabetes mellitus with hyperglycemia; Z98.890 Other specified postprocedural states
CPT/HCPCS: 20605; 20606; 77002; 99212; J0665; J1010

== ENCOUNTER → 2024-11-22 11:07 | Outpatient (BNV) | payer OTHER, SELFPAY | PROVIDERS: PCP Internal Medicine; Visit Provider Radiology Diagnostic Radiology | DX: M25.531 Pain in right wrist (principal) | CPT/HCPCS: 77002 ==

== ENCOUNTER → 2024-12-05 23:59 | Outpatient (BNV) | payer OTHER, SELFPAY | PROVIDERS: PCP Internal Medicine; Visit Provider Internal Medicine | DX: E11.00 Type 2 diabetes mellitus with hyperosmolarity without nonketotic hyperglycemic-hyperosmolar coma (NKHHC) (principal); G40.001 Localization-related (focal) (partial) idiopathic epilepsy and epileptic syndromes with seizures of localized onset, not intractable, with status epilepticus | CPT/HCPCS: G0179 ==

== ENCOUNTER 2024-12-26 10:39 | Outpatient (AMB) | payer OTHER, SELFPAY ==
[2024-12-26 10:42] VITALS: BP 132/78; PULSE 85; O2SAT 97; BMI 29.9
--- NOTE | 2024-12-26 10:42 | MHC.PC.OV ---
Vital Signs 12/26/24 10:42 Height 5 ft 4 in Weight 174 lb BMI 29.9 BP 132/78 Blood Pressure Location Lt brachial Position Sitting Pulse 85 Pulse Source Pulse Oximeter Pulse Oximetry (%) 97 Oxygen Delivery Method Room Air Intake Visit Reasons: 3mth f/u- needs A1C Allergies aspirin [ASPIRIN] Allergy (Intermediate, Verified 12/26/24 10:43) RASH WITH HIGH DOSES Penicillins Allergy (Mild, Verified 12/26/24 10:43) HIVES phenytoin [From Dilantin] Allergy (Mild, Verified 12/26/24 10:43) BURNING SENSATION IN BODY butalbital [BUTALBITAL] Allergy (Unknown, Verified 12/26/24 10:43) HIVES thimerosal [THIMEROSAL] Allergy (Unknown, Verified 12/26/24 10:43) UNKNOWN doxycycline Adverse Reaction (Intermediate, Verified 12/26/24 10:43) penile rash? Charlotte Allergy (Unknown, Uncoded 12/26/24 10:43) Unknown MOTRIN Allergy (Unknown, Uncoded 12/26/24 10:43) hives Medication List - Last Reconciled 12/26/24 by Den Leal MD acetaminophen (Tylenol) 650 mg (2 x 325 mg) PO Q6H PRN [adult pull ups As directed] albuterol sulfate 90 mcg/actuation (Ventolin HFA) 2 puffs PO Q4-6H PRN amitriptyline 50 mg (2 x 25 mg) PO BEDTIME aspirin 81 mg PO DAILY atorvastatin 40 mg PO BEDTIME [bed rails As directed] cholecalciferol (vitamin D3) 2,000 units PO DAILY cyclobenzaprine 5 mg PO BEDTIME PRN empagliflozin (Jardiance) 10 mg PO DAILY fluticasone furoate-vilanterol 200-25 mcg/dose (Breo Ellipta) 1 inh inhalation DAILY FreeStyle Scott 3 Mina (blood-glucose,mine administrator supervisor,cont) As directed NS FreeStyle Scott 3 Sensor (blood-glucose sensor) As directed change every 14 days NS FreeStyle Precision Mike Strips (blood sugar diagnostic) Once daily as needed to check blood glucose when CGM reads high or low NS gabapentin 300 mg PO BID [Grab bars for bathroom As directed] [hand held shower As directed] hydrocortisone acetate (Anusol-HC) 25 mg PA BID insulin glargine (Lantus Solostar U-100 Insulin) 10 units (0.1 mL) subcut DAILY lancets (OneTouch UltraSoft 2 Lancet) DAILY levetiracetam 500 mg PO Q12H lisinopril 2.5 mg PO DAILY 90 days meclizine 25 mg PO TID PRN metformin 1,000 mg PO BID 90 days montelukast (Singulair) 10 mg PO BEDTIME 90 days nebulizer accessories As directed nebulizers (Compact Compressor Nebulizer) As directed omeprazole 20 mg PO DAILY 90 days pen needle, diabetic (BD Ultra-Fine Mini Pen Needle) As directed Inject LAntus 10 u QD [quad cane As directed] semaglutide (Ozempic) 2 mg (0.75 mL) subcut QWEEK sertraline 100 mg PO DAILY [shower chair As directed] [shower bench with back As directed] tramadol 50 mg PO BID PRN 30 days Tobacco use date assessed: 09/21/24 Fall risk assessment: 2 + Falls in past year Last assessed Fall Risk: 12/26/24 Dental Screening Dental Screen Date: 08/23/24 [facility] Medical History (Updated 12/26/24 @ 10:59 by Den Leal MD) Obstructive sleep apnea Snoring Hypersomnia Nocturia Pre-syncope Unspecified disorder of ear Seizure Bladder wall thickening Incontinence Lower urinary tract symptoms Enlarged prostate Vertigo Other peripheral vertigo, unspecified ear Insulin long-term use Seizure Frequency of micturition Testicular pain Skin cyst Stroke Lipoma of abdominal wall History of carpal tunnel syndrome BERNARD positive Inguinal hernia, bilateral BPH (benign prostatic hyperplasia) Brain tumor Hypercholesterolemia Vitamin D deficiency Obesity (BMI 30-39.9) Vitamin B12 deficiency GERD (gastroesophageal reflux disease) Grand mal seizure disorder Erectile dysfunction Osteoarthritis COPD (chronic obstructive pulmonary disease) Tennis elbow Calcaneal spur, right RLS (restless legs syndrome) Pulmonary nodule Insomnia Essential hypertension Diabetes mellitus with hyperglycemia Migraine Surgical History Hx of carpal tunnel repair History of diverticulosis Hx of colonoscopy History of elbow surgery Hx of foot surgery Hx of brain surgery History of partial gastrectomy History of right inguinal hernia repair Hx of prostate biopsy Family History (Updated 12/26/24 @ 11:03 by Den Leal MD) Father Diabetes Throat cancer Heart disease Mother Ovarian cancer Sister Dementia Brother Dementia Social History Household Members: Spouse Housing: House Are you a primary home care music therapist to a significant other at home: No Do you presently have visiting nurse or other home services: Yes ([facility]) Alcohol intake: never Patient Tobacco Use Status: Never used Tobacco Tobacco use type: Cigarette e-Cigarette/Vaping Use: Never Used Second Hand Smoke Exposure: No Advance Directives Date on File: 06/13/21 service: No Current occupational status: retired Current occupation: rt handed Cognitive needs: No Hearing needs: No Vision needs: Yes Questionnaire PHQ-9 Over the last 2 weeks, how often have you been bothered by any of the following problems? 1. Little interest or pleasure in doing things: not at all 2. Feeling down, depressed, or hopeless: not at all 3. Trouble falling or staying asleep, or sleeping too much: more than half the days 4. Feeling tired or having little energy: more than half the days 5. Poor appetite or overeating: more than half the days 6. Feeling bad about yourself - or that you are a failure or have let yourself or your family down: not at all 7. Trouble concentrating on things, such as reading the newspaper or watching television: not at all 8. Moving or speaking so slowly that other people could have noticed. Or the opposite - being so fidgety or restless that you have been moving around a lot more than usual: not at all 9. Thoughts that you would be better off or of hurting yourself in some way: not at all Total score: 6 Depression Screening Interpretation: Positive Depression Screening Done: Yes Source: Developed by Drs. Bonifacio Disla, Cristine Card, Orville Morley and colleagues, with an educational jackson from [employer]. Thrive Questionnaire Date Thrive assessed: 12/19/24 I am a: Patient What is your living situation today?: I have a steady place to live Within the past 12 months, did the food you bought not last and you didn't have the money to get more?: Sometimes True Within the past 12 months, did you worry whether your food would run out before you got money to buy more?: Often true Do you have trouble paying for medicines?: No Do you have trouble getting transportation to medical appointments?: No Do you have trouble paying your heating and electricity bill?: Yes Do you have trouble taking care of your child, family member or friend?: No Do you have trouble with day-to-day activities such as bathing, preparing meals, shopping, managing finances, etc.?: No Are you currently unemployed and looking for a job?: No Are you interested in more education?: No Please select the resources that you would like help with: Food and Utilities Currently or been in a relationship where the following occur: No concerns reported THRIVE Score: 3 AUDIT C Alcohol Use Questionnaire (AUDIT-C) 1. How often do you have a drink containing alcohol?: Never 3. How often do you have six or more drinks on one occasion?: Never Total Score: 0 LANA-7 AMB Questionnaire LANA-7 Date LANA - 7 assessed: 08/23/24 Feeling nervous, anxious, or on edge: 1 = Several days Not being able to stop or control worryin = Several days Worrying too much about different things: 1 = Several days Trouble relaxin = Several days Being so restless that it is hard to sit still: 1 = Several days Becoming easily annoyed or irritable: 1 = Several days Feeling afraid as if something awful might happen: 1 = Several days Total LANA-7 score (0-4 normal; 5-9 mild; 10-14 moderate; 15-21 severe): 7 Source: Developed by Drs. Bonifacio Disla, Cristine Card, Orville Morley and colleagues, with an educational jackson from [employer]. Physical exam (Primary Care) Vital Signs: Last Vital Signs Pulse 85 12/26/24 10:42 BP 132/78 12/26/24 10:42 Pulse Ox 97 12/26/24 10:42 Oxygen Delivery Method Room Air 12/26/24 10:42 BMI result Body Mass Index 29.9 Tobacco/Smoking Status: Tobacco use Status Tobacco use date assessed 09/21/24 12/26/24 10:44 Patient Tobacco Use Status Never used Tobacco 12/26/24 10:44 Tobacco use type Cigarette 12/26/24 10:44 e-Cigarette/Vaping Use Never Used 12/26/24 10:44 PHQ-9: PHQ-9 Score PHQ-9: Total score 6 12/26/24 11:01 Depression Screening Interpretation: Positive Thrive Assessment: Date of Thrive Assessment Date Thrive assessed 12/19/24 12/26/24 10:44 Currently or been in a relationship where the following occur: No concerns reported Const General: alert; No acute distress Eyes Conjunctivae: conjunctivae normal Resp Auscultation: clear to auscultation bilaterally Cardio Rate: regular rate Rhythm: regular rhythm GI Inspection: Yes normal to inspection Extrem Other: Right knee no redness but tender on the anterior on the lateral as well as the posterior side on palpation. Patient is not able to support on standing and uses a cane. General: No edema Results AMB Hemoglobin A1c AMB Hemoglobin A1c 10.1 % Last Edit by Luh Hill CMA on 12/26/24 11:04 Coding Level of Care Code Est Pt Level 4 (21688) Complex EM visit Add On G2211 Diagnoses Carpal tunnel syndrome on both sides G56.03 Type 2 diabetes mellitus with hyperglycemia, with long-term current use of insulin E11.65; Z79.4 Diabetes mellitus type: type 2 Diabetes mellitus ferry terminal agent insulin use: with ferry terminal agent use Essential hypertension I10 GERD (gastroesophageal reflux disease) K21.9 Hypercholesterolemia E78.00 Acute CVA (cerebrovascular accident) I63.9 Recurrent major depression F33.9 Anemia, unspecified type D64.9 Anemia type: unspecified type Seizure R56.9 BPH (benign prostatic hyperplasia) N40.0 Assessment & Plan Assessment & Plan (1) Carpal tunnel syndrome on both sides: Comment: 08/29/2024Moderately severe bilateral median neuropathy across carpal tunnel. 2. 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 Code(s): G56.03 - Carpal tunnel syndrome, bilateral upper limbs Category: Medical Plan: Patient has met with Orthopedics and has been given the options of surgical and nonsurgical (2) Diabetes mellitus with hyperglycemia: Comment: [facility] Ophthamology Code(s): E11.65 - Type 2 diabetes mellitus with hyperglycemia Category: Medical Qualifiers: Diabetes mellitus type: type 2 Diabetes mellitus jail insulin use: with jail use Qualified Code(s): E11.65 - Type 2 diabetes mellitus with hyperglycemia; Z79.4 - [facility] (current) use of insulin Plan: Decrease the amount of carbohydrate intake, pasta, bread, rice and potatoes are all sugar and that is aside from all the sweet stuff, remember that fruits are good but they are Sweet also. Hemoglobin A1c goal of less than 7.0 patient is on Lantus 10 units once a day metformin a 1000 mg twice a day Ozempic at 2 mg once a week (3) Essential hypertension: Code(s): I10 - Essential (primary) hypertension Category: Medical Plan: Continue with blood pressure medication. Decrease salt intake and exercise patient takes lisinopril 2.5 mg once a day (4) GERD (gastroesophageal reflux disease): Code(s): K21.9 - Gastro-esophageal reflux disease without esophagitis Category: Medical Plan: Avoid the foods that causes that usually spicy foods, tomato products, juices, coffee, soda and foods that your sensitive to. After eating do not lie down, allow 3-4 hours before in lie down. And keep the head of bed above 30 degrees to avoid the acid from going up. (5) Hypercholesterolemia: Code(s): E78.00 - Pure hypercholesterolemia, unspecified Category: Medical Plan: Avoid fried foods, chicken skin, eggs, butter margarine, pastries and meat. Be it pork or beef they have a lot of cholesterol LDL goal of less than 100 and triglyceride of less than 150 on atorvastatin 40 mg once a day (6) Acute CVA (cerebrovascular accident): Code(s): I63.9 - Cerebral infarction, unspecified Category: Medical Plan: Control the cholesterol, weight, blood pressure, diabetes mellitus continue with aspirin 81 mg once a day (7) Recurrent major depression: Comment: suicidal ideation 05/2012, Counselling Q 2 weeks Code(s): F33.9 - Major depressive disorder, recurrent, unspecified Category: Medical Plan: Presently on amitriptyline sertraline 100 mg once a day (8) Anemia: Code(s): D64.9 - Anemia, unspecified Category: Medical Qualifiers: Anemia type: unspecified type Qualified Code(s): D64.9 - Anemia, unspecified Plan: Continue to monitor. Stable (9) Seizure: Code(s): R56.9 - Unspecified convulsions Category: Medical Plan: Patient follows up with Neurology continuing with Jenifer (10) BPH (benign prostatic hyperplasia): Comment: 07/2023 28 cc prostate Code(s): N40.0 - Benign prostatic hyperplasia without lower urinary tract symptoms Category: Medical Plan: Stable Plan History of Present Illness The patient is a 74-year-old male presenting with multiple chronic health issues for a routine follow-up and management. The patient has a documented history of Type 2 Diabetes Mellitus, with a recent Hemoglobin A1c of 10.4, indicating poor glycemic control. Despite being on a regimen of Lantus, Metformin, and Ozempic, the patient's blood sugar levels remain inadequately controlled. This persistent hyperglycemia may contribute to his heightened risk of ocular complications, such as diabetic retinopathy, which is suspected due to elevated intraocular pressure and signs of macular degeneration. Additionally, the patient has a background of Essential Hypertension, managed by Lisinopril, although recent blood pressure readings were not specified. He presents with GERD, managed symptomatically, and has a history of obstructive sleep apnea, noted on a prior sleep study as normal, though he struggles with CPAP usage. Hypercholesterolemia is treated with Atorvastatin but requires further monitoring, as historical LDL levels were approximately 76. Furthermore, the patient reported a past surgical history of a brain tumor resection performed in 1990, with residual effects that include seizure disorder managed with Keppra. A cerebrovascular accident (CVA) has been noted in history, which may contribute to ongoing neurological management, including Amitriptyline and Sertraline, for symptomatic control and mood stabilization. The patient has experienced dysphagia and is scheduled for an esophagogastroduodenoscopy (EGD) to evaluate the underlying cause. Carpal Tunnel Syndrome is present, with orthopedic consultation advising further review before deciding on surgical or non-surgical options. Cervical arthritis was identified through radiographic evidence, contributing to discomfort and affecting range of motion. Concomitant mild anemia was noted in recent laboratory results. Health Maintenance - Planned colonoscopy for February 2025 due to history of tubular adenopathy. - Scheduled EGD in February for evaluation of dysphagia. - Cholesterol management with goal LDL <100 and triglycerides <150. - Diabetic management with Hemoglobin A1c goal <7.0. - Annual eye examination with noted pressure check due to diabetes-related complications. - Sleep study conducted September 2024, with a negative result for sleep apnea risk; consideration of alternative sleep support options. - Blood work completion emphasizing fasting glucose and kidney function. - Continued aspirin 81 mg daily for cardiovascular prevention. Social History - Discussed potential dietary modifications for better glycemic control, including reducing calorie intake and increasing consumption of vegetables. - Noted the lack of translation services impacting comprehension during medical visits. Review of Systems - Neurological: Reports seizure disorder. - Ophthalmologic: Reports diabetic-related elevation in intraocular pressure; concern for macular degeneration. - Gastrointestinal: Reports dysphagia. - Musculoskeletal: Reports arthritis in cervical region; carpal tunnel syndrome symptoms. - Hematologic: Denies significant anemia symptoms. - General: Reports unintentional weight loss of 10 pounds. Physical Exam - Musculoskeletal- Notable tenderness on the anterior, lateral, and posterior aspects of the right knee upon palpation. The patient demonstrates an inability to support weight on this extremity and utilizes a cane for ambulation. Results - Labs: Hemoglobin A1c 10.4 as of September 2024, mild anemia with a hemoglobin of 12.5 and hematocrit of 37.6, LDL of 76 (November 2023), creatinine 1.17, GFR > 60. - Tests: September 2024 sleep study negative for obstructive sleep apnea. Plan The treatment approach remains centered on augmenting Type 2 Diabetes control with Enbrel, lifestyle changes, and additional fast-acting glucose-lowering agents if necessary. The patient?s blood pressure management is steadfast on Lisinopril, while LDL targets under Statin therapy are maintained. Regular follow-ups on neurological symptoms align with Keppra continuation, facilitating control over seizure episodes. Orthopedic intervention is contingent upon thorough imaging access and decision-making. Gastrointestinal and ophthalmologic interventions are preemptive, focusing on dysphagia and ocular surveillance. A proactive step is taken toward differential care and reinforcement of medical comprehension in light of the multilingual barriers observed, thus prioritizing informed consent. Patient was informed and verbally consented to the use of an ambient scribe for clinic note documentation during this visit. Discussion Notes I conveyed to the patient the importance of more stringent control over blood glucose levels, considering his significant A1c count and the risks involved. We discussed the potential complications if diabetes is not adequately managed, particularly the risk of further ocular complications, neuropathy, and impaired healing. I emphasized four specific lifestyle amendments about dietary intake as an effective counterpart to pharmacotherapy and the merit of regular exercise. I discussed the planned EGD and colonoscopy, highlighting their importance in investigating the cause of dysphagia and cancer surveillance, respectively. Options for carpal tunnel syndrome have been reviewed with consideration of an MRI to clarify the extent of the issue before deciding on a surgical course. I ensured that I provided materials explaining the need for attentive follow-up care and reinforced the necessity for consistent compliance with medicinal intake, both to optimize results in managing hypertension and hyperlipidemia. Patient Instructions - Maintain current medication regimen and attend all scheduled procedures. - Incorporate more vegetables and low-calorie foods into diet to better manage blood glucose. - Continue to monitor blood sugar levels frequently. - Use a cane for support while walking. - Collect and bring any prior imaging results to future appointments. - Follow up with orthopedics, gastroenterology, and ophthalmology as scheduled. - Seek urgent medical attention if experiencing unexplained bleeding, severe pain, or worsening neurological symptoms. Orders: Orders AMB Hemoglobin A1c Today Z13.9 - Encounter for screening, unspecified MR knee RT wo con Today M25.561 - Pain in right knee Referrals Orthopedics Referral M25.561 - Pain in right knee Medications: New empagliflozin (Jardiance) 10 mg PO DAILY 30 tabs 4RF E11.65 - Type 2 diabetes mellitus with hyperglycemia, Z79.4 - ferry terminal agent (current) use of insulin
--- OUTSIDE RECORDS SUMMARY | 2024-12-26 11:19 | XMS_ITS | Clinical Summary ---
Author Organization [address] [facility] Address [address] [place] [address] Phone Care Team Providers Care Paper Core Machine Operator Name Role Phone Den Leal MD Primary Care Provider [phone] Allergies Active Allergy Reactions Criticality Noted Date [...] test strip 5 Active FreeStyle Scott 3 Salix misc See administration instructions. 4 Active FreeStyle [...] Encounters Date Type Department Care Team Description 11/29/2024 10:00 AM EDT Office Visit Orthopedic Surgery [facility] [address] [phone] Madelyn Salcedo PA Carpal tunnel syndrome, bilateral upper limbs (Primary Dx); Cubital tunnel syndrome of both upper extremities 10/24/2024 10:00 AM EDT Consult Orthopedic [address] [phone] Madelyn Salcedo PA Carpal tunnel syndrome, bilateral upper limbs from Last 3 Months Social History Tobacco Use Types Packs/Day Years Used Date Smoking Tobacco: Never Assessed Sex and Gender Information Value Date Recorded Sex Assigned at Not on file Legal Sex Male 10:25 AM EST Gender Identity Not on file Sexual Orientation Not on file Last Filed Vital Signs Vital Sign Reading Time Taken Comments Blood Pressure - - Pulse - - Temperature - - Respiratory Rate - - Oxygen Saturation - - Inhaled Oxygen Concentration - - Weight 79.8 kg (176 lb) 11/29/2024 10:09 AM EDT Height 162.6 cm (5' 4 ) 11/29/2024 10:09 AM EDT Body Mass Index 30.21 11/29/2024 10:09 AM EDT Plan of Treatment Upcoming Encounters Date Type Department Care Team (Late st Contact Info) Description 12/27/2024 10:30 AM EDT Office Visit Orthopedic Surgery [facility] [address] [phone] Kaila Em MD [address] [phone] Health Maintenance Due Date Last Done Comments [...] Zoster Vaccines (3 of 3) 08/18/2024 06/23/2024, 05/10 COVID-19 Vaccine ( season) 2024 04/12/2024, 04/24/2022, [...] basal joint arthritis left greater than right. us Madelyn WALLACE IMG XR PROCEDURES Final Resul [...] Impression: Arthritic changes at the cervical spine. us Madelyn WALLACE IMG XR PROCEDURES Final Resul t from Last 3 Months Insurance [facility] Member Subscriber Plan / Payer (Ef fective 2024-Present) Name:GEOVANNY KHOURY Relation to Subscriber:Self Name:Geovanny Khoury Payer ID:[id number] Group ID:[id number] Type:Not on file Address: [place] [address] [address] [id number] Care Teams Paper Core Machine Operator Relationship Specialty Start Date End Date Den Leal MD [address] [place] [address] Dr [address] [facility] [place] [address] PCP - General Internal Medicine 09/10/11
--- OUTSIDE RECORDS SUMMARY | 2024-12-26 11:20 | XMS_ITS ---
Author Organization [facility] [place] Address [address] [place] [phone] Care Team Providers Care Spring Repairer Helper Hand Name Role Phone Den Leal MD Primary Care Provider Bonifacio Damon [phone] REASON FOR VISIT screening,hx polyps,dysphagia Encounters Encounter Location Date Provider Diagnosis [facility] Outpatient [address] [place] [id number] 12/12/2024 Bonifacio Camejo Plan Of Treatment Next Appt Details Provider Name:Bonifacio Camejo , 02/15/2025 11:40:00 AM, [address] [place] [address], [phone], Progress Notes * BILL PRITCHETTDOB: (74 yo M)Acc No.[id number]:12/12/2024 EGD and COL/MAC Patient:?BILL PRITCHETT Provider:?Bonifacio Camejo MD :1950???Age:74 Y???Sex:Male Trace e:12/12/2024 Address:[address] [place], [place] [id number] Pcp:Den Leal MD Subjective: * Chief Complaints: * ???1. Screening,hx polyps,dy sphagia. * Medical History:? Objective: * Vitals:? Assessment: Plan: * Treatment: * * The named appointment provid er may or may not be the originator of this progress note, and it is not deemed complete until electronically signed by the appointment provider. Sign off status: Pending * Provider:?Bonifacio Camejo MD Date:? 025 Generated for Mukund ceballos/Bryan/eTransmitting on:?12/26/2024 11:20 AM EDT
--- OUTSIDE RECORDS SUMMARY | 2024-12-26 11:20 | XMS_ITS ---
Author Organization [facility] Address [address] [place] [phone] Care Team Providers Care Lead Driver Name Role Phone Po Dne CARLIN Primary Care Provider Bonifacio Damon [phone] Allergies Allergen (clinical drug ingredient) Drug/Non Drug Allergy documented on EMR Reaction Allergy Type Onset Date Status acetaminophen / oxycodone Percocet hives Drug Allergy Active Motrin Unknown Drug Allergy Active phenytoin Dilantin Unknown Drug Allergy Active Charlotte hives Drug Allergy Active Penicillin itchyness/hives Drug Allergy Active Thimerosal Unknown Drug Allergy Active REASON FOR VISIT Patient [...] Problem History of polyp of colon (situation) (589649938) Personal history of colonic polyps (Z86.010) Active confirmed Problem Dysphagia (34345760) Dysphagia (R13.10) Active confirmed Vital Signs Blood pressure systolic 111 mm Hg 11/05/19 25 Blood pressure diastolic 11 mm Hg 025 Height 67 in 11/04/2024 Weight 181 lbs 11/04/2024 BMI 28.35 kg/m2 11/04/2024 Procedures Procedure Date Ordered Date Performed Result Body Sit e UPPER GI ENDOSCOPY BALLOOON DILATION OF ESOPH 11/04/2024 N/A COLONOSCOPY 11/04/2024 N/A Encounters Encounter Location Date Provider Diagnosis [facility] [address] [place] [address] 11/04/2024 Bonifacio Camejo Colon cancer screening Z12.11 [...] Up: prn, Reason: Provider Name:Bonifacio Camejo , 02/15/2025 11:40:00 AM, [address] [place] [address] , [place], [place], [phone], Progress Notes * SANDRA PRITCHETT: 2 (74 yo M)Acc No.[id number]:11/04/2024 Progress Notes Patient:?GEOVANNY PRITCHETT Provider:?Bonifacio Camejo MD :1950???Age:74 Y???Sex:Male Trace e:11/04/2024 Address:[address] [place] [address] Pcp:Den Leal MD Subjective: * Chief Complaints: [...] 1 week before the procedures. * Procedure Codes:?58158 DIAGN OSTIC [id number] ESOPHAGUS [id number] COLORECTAL CA SCREEN DOC CIR9983T TOBACCO NON-[id number] BP SCR NOT PRFRM REC REASON SOF9985Y RCMND FLW-UP 10 YRS DOCD * Preventive [...] MD Date:? 025 Generated for Emelyni tucker/Bryan/eTransmitting on:?12/26/2024 11:19 AM EDT History and Physical Notes * Examination [...]
--- OUTSIDE RECORDS SUMMARY | 2024-12-26 11:20 | XMS_ITS | Patient Health Record ---
Author Organization [facility] Address [address] [place] [address] Care Team Providers Care Ordained Minister Name Role Phone Po Den CARLIN Primary Care Provider Bonifacio Damon [phone] Allergies Allergen (clinical drug ingredient) Drug/Non Drug Allergy documented on EMR Reaction Allergy Type Onset Date Status acetaminophen / oxycodone Percocet hives Drug Allergy Active Motrin Unknown Drug Allergy Active phenytoin Dilantin Unknown Drug Allergy Active Charlotte hives Drug Allergy Active Penicillin itchyness/hives Drug Allergy Active Thimerosal Unknown Drug Allergy Active Reason For Referral No [...] Once a day for 30 day(s) Active Dulcolax (colon prep) 5 MG take at 3:00 p.m and 7:00p.m. Orally two tablets twice a day for one day for 1 days 12/05/2024 Active Ibuprofen 600 MG 1 tablet with [...] 8 MG/3ML Subcutaneous for 28 Days Active MiraLax (colon prep) 17 GM/SCOOP 1 238 Gm bottle mixed with Gatorade or Crystal Light orally begin at 5:00 p.m. the day before the procedure for 1 days 12/05/2024 Active ProAir HFA 108 (90 Base) MCG/ACT [...] Problem Status W/U Status Risk Notes Problem [id number] Encounter for screening for malignant neoplasm of colon (Z12.11) Active confirmed Problem 180475937 History of adenomatous polyp of colon (Z86.010) Active confirmed Problem History of polyp of colon (situation) (394845860) Personal history of colonic polyps (Z86.010) Active confirmed Problem 774915034 Generalized abdominal pain (R10.84) Active confirmed Problem Dysphagia (R13.10) Active confirmed Problem 753861175 Elevated liver function tests (R79.89) Active confirmed Problem 656708553 Elevated liver enzymes (R74.8) Active confirmed Problem 18919985 Constipation, unspecified constipation type (K59.00) Active confirmed Problem 978300649 Positive BERNARD (antinuclear antibody) (R76.8) Active confirmed Problem 680478145 BERNARD positive (R76.8) Active confirmed Vital Signs [...] Diagnosis [facility] [address] [place] [address] 11/04/2024 Bonifacio Camejo Colon cancer screening Z12.11 ; Dysphagia R13.10 and Personal history of colonic polyps Z86.010 [facility] [address] [facility] [address] [place] [address] 11/04/2024 Bonifacio Camejo Assessments Encounter Date Diagnosis [...] OF ESOPH 11/04/2024 COLONOSCOPY 11/04/2024 LIVER PROFILE 01/07/2020 LIVER PROFILE 03/06/2020 LIVER PROFILE 06/26/2020 CERULOPLASMIN 12/13/2019 PROTEIN ELECTROPHORESIS, SERUM 0 FLUOR. ANTINUCLEAR AB SCREEN (WANG) 12/10 Future Test Test Name Order Date COLONOSCOPY 09/09/2018 Next Appt Details Provider Name:Bonifacio Camejo , 02/15/2025 11:40:00 AM, [address] [place] [address] , [place], [place], [phone], Insurance Providers Payer Name Payer Address Payer Phone Subscriber Number Group Number Insured Name Patient Relationship to Insured Coverage Start Date Coverage End Date [facility] [address] Attn Claims RODRIGO King [id number] GEOVANNY PRITCHETT Self - patient is the insured MEDICAID OF [facility] [address] [place] [address] [phone] [id number] GEOVANNY PRITCHETT Self - patient is the insured Medical (General) History Medical History History ICD Code Colonoscopy [id number] small tubular a denoma removed He had a neg colonoscopy in 08/[address] Neri History of peptic ulcer disease-s/p B-II in [place] Denies [place],CVA,renal disease Neg EGD with Dr. Neri in [...]
--- OUTSIDE RECORDS SUMMARY | 2024-12-26 11:20 | XMS_ITS ---
Author Organization [facility] Address [address] [facility] [address] [place] [address] Care Team Providers Care Environmental Test Technician Name Role Phone Den Leal MD Primary Care Provider Bonifacio Damon [phone] REASON FOR VISIT bowel prep Medications Medication SIG (Take, Route, Frequency, Duration) Notes Start Date End Date Status MiraLax (colon prep) 17 GM/SCOOP 1 238 Gm bottle mixed with Gatorade or Crystal Light orally begin at 5:00 p.m. the day before the procedure for 1 days 12/05/2024 Active Dulcolax (colon prep) 5 MG take at 3:00 p.m and 7:00p.m. Orally two tablets twice a day for one day for 1 days 12/05/2024 Active Encounters Encounter Location Date Provider Diagnosis [address] [address] 11/04/2024 Bonifacio Camejo Plan Of Treatment Medication Medication Name Sig Start Date Stop Date Notes MiraLax (colon prep) 17 GM/SCOOP 1 238 Gm bottle mixed with Gatorade or Crystal Light orally begin at 5:00 p.m. the day before the procedure for 1 days 12/05/2024 Dulcolax (colon prep) 5 MG take at 3:00 p.m and 7:00p.m. Orally two tablets twice a day for one day for 1 days 12/05/2024 Next Appt Details Provider Name:Bonifacio Camejo , 02/15/2025 11:40:00 AM, [address] [place] [address] , [place], [place], [phone], Progress Notes * BILL PRITCHETTDOB: 2 (74 yo M)Acc No.[id number]:11/04/2024 Patient:BLIL MARIN :1950???Age:74 Y???Sex:Male Address:[address] [place] [address] * Refills? Start MiraLax (colon prep) Powder, 17 GM/SCOOP, orally, 1, 1 238 Gm bottle mixed with Gatorade or Crystal Light, begin at 5:00 p.m. the day before the procedure, 1 days, Refills=0 Start Dulcolax (colon prep) Tablet Delayed Release, 5 MG, Orally, 4, take at 3:00 p.m and 7:00p.m., two tablets twice a day for one day, 1 days, Refills=0 * true * Date:? Generated for Mukund ceballos/Bryan/Mcitting on:?12/26/2024 11:20 AM EDT
== END 2024-12-26 11:20 | disposition home or self-care (01) ==
LOC: HO.HMCH 10:40
PROVIDERS: PCP Internal Medicine; Visit Provider Internal Medicine
DX: E11.65 Type 2 diabetes mellitus with hyperglycemia (principal); Z79.4 Long term (current) use of insulin; I63.9 Cerebral infarction, unspecified; R56.9 Unspecified convulsions; G56.03 Carpal tunnel syndrome, bilateral upper limbs; I10 Essential (primary) hypertension; K21.9 Gastro-esophageal reflux disease without esophagitis; E78.00 Pure hypercholesterolemia, unspecified; F33.9 Major depressive disorder, recurrent, unspecified; D64.9 Anemia, unspecified; N40.0 Benign prostatic hyperplasia without lower urinary tract symptoms

== ENCOUNTER → 2024-12-26 10:39 | Outpatient (BNVA) | payer OTHER, SELFPAY | PROVIDERS: PCP Internal Medicine; Visit Provider Internal Medicine | DX: G56.03 Carpal tunnel syndrome, bilateral upper limbs (principal); E11.65 Type 2 diabetes mellitus with hyperglycemia; I10 Essential (primary) hypertension; K21.9 Gastro-esophageal reflux disease without esophagitis; E78.00 Pure hypercholesterolemia, unspecified; F33.9 Major depressive disorder, recurrent, unspecified; D64.9 Anemia, unspecified; N40.0 Benign prostatic hyperplasia without lower urinary tract symptoms; G40.909 Epilepsy, unspecified, not intractable, without status epilepticus; Z86.73 Personal history of transient ischemic attack (TIA), and cerebral infarction without residual deficits; Z79.4 Long term (current) use of insulin; Z79.82 Long term (current) use of aspirin; Z79.899 Other long term (current) drug therapy | CPT/HCPCS: 83036; 96127; 99212 ==

== ENCOUNTER 2025-01-14 09:52 | Outpatient (REF) | payer OTHER, SELFPAY ==
--- NOTE | ~2025-01-14 | MR_ITS ---
EXAMINATION: MRI RIGHT KNEE WITHOUT CONTRAST HISTORY: M25.561 - Pain in right knee COMPARISON: Comparison is made with the prior examination dated 04/03/2014. Correlation is also made with plain films of the right knee dated 08/23/2024. TECHNIQUE: Coronal T1 and fat-suppressed proton density, sagittal proton density and fat-suppressed proton density, and axial fat suppressed T2 weighted MR images of the right knee were obtained. FINDINGS: Bone marrow: Bone marrow signal intensity is normal. Joint effusion: There is a small suprapatellar joint effusion. Jones's cyst: There is a trace Jones's cyst. Articular cartilage: There is moderate to severe osteoarthritis of the patellofemoral compartment with cartilage loss, osteophyte formation, and subchondral marrow changes. There is mild osteoarthritis of the medial compartment. Muscles/soft tissues: The visualized muscles demonstrate normal signal intensity. Anterior cruciate ligament: Intact Posterior cruciate ligament: The posterior cruciate ligament is enlarged and heterogeneous, and is discontinuous in its midportion consistent with a tear. Medial collateral ligament: Intact Lateral collateral ligament: Intact Medial meniscus: There is a horizontally oriented linear focus of increased signal intensity in the body and posterior horn of the medial meniscus. This contacts the inferior joint surface, consistent with a tear. The anterior horn is intact. Lateral meniscus: Intact Flexor mechanism: The popliteus, gastrocnemius, and hamstring tendons are intact. Quadriceps tendon: Intact Patellar tendon: Intact Patellar retinacula: Intact MR/MR knee RT wo con IMPRESSION: 1. Moderate to severe osteoarthritis of the patellofemoral compartment and mild osteophytosis of the medial compartment. 2. PCL tear. 3. Horizontal tear of the body and posterior horn of the medial meniscus. Electronically signed by: Bonifacio Schaeffer MD 01/16/2025 09:10 AM EDT
== END 2025-01-14 09:53 | disposition home or self-care (01) ==
LOC: HO.MRI 09:52
PROVIDERS: PCP Internal Medicine; Visit Provider Internal Medicine
DX: M25.561 Pain in right knee (principal)
CPT/HCPCS: 73721

== ENCOUNTER → 2025-01-14 09:56 | Outpatient (BNV) | payer OTHER, SELFPAY | PROVIDERS: PCP Internal Medicine; Visit Provider Radiology Diagnostic Radiology | DX: M17.11 Unilateral primary osteoarthritis, right knee (principal); M23.621 Other spontaneous disruption of posterior cruciate ligament of right knee; M23.321 Other meniscus derangements, posterior horn of medial meniscus, right knee | CPT/HCPCS: 73721 ==

== ENCOUNTER → 2025-01-18 23:59 | Outpatient (BNV) | payer OTHER, SELFPAY | PROVIDERS: PCP Internal Medicine; Visit Provider Internal Medicine | DX: E11.00 Type 2 diabetes mellitus with hyperosmolarity without nonketotic hyperglycemic-hyperosmolar coma (NKHHC) (principal); G40.001 Localization-related (focal) (partial) idiopathic epilepsy and epileptic syndromes with seizures of localized onset, not intractable, with status epilepticus; F41.1 Generalized anxiety disorder | CPT/HCPCS: G0179 ==

== ENCOUNTER 2025-02-15 09:17 | Day surgery (SDC) | payer OTHER, SELFPAY ==
--- OUTSIDE RECORDS SUMMARY | 2024-11-09 07:54 | XMS_ITS | Data Portability ---
Author Organization [employer] Address [address] [place] [address] Care Team Providers Care Streetcar Motorman Name Role Phone HIM CCA OTHER Assessment Encounter Date Assessment Date Assessment LastModified by Organization Details LastModified Time 12/22/2023 12/22/2023 I have reviewed and agree with the assessment and plan as documented by the knockout man. I provided real time medical direction for this encounter and was immediately available to provide additional phone based assistance as needed. History as noted by knockout man. Pt with history of COPD, reports 3 [...] QL IA, respiratory specimen 2023 024 btils [facility], [address] [place] [address], [phone], 4 12:14:18 rapid flu (A+B) 2023 024 btils [facility], [address] [place] [address], [phone], 4 12:14:19 rapid strep group A, throat [facility] [address] [place] [address], [phone], 4 12:14:16 Referral None recorded. Procedures None recorded. Surgeries None recorded. Imaging None recorded. Medication Orders ketorolac 30 mg/mL (1 mL) injection [facility] 11:53:48 Patient TargetsNo targets recorded. Patient InstructionsNo instructions recorded. Reason for Referral None Reported. Results Created Date Observation Date Name Description Value Unit Range Abnormal Flag Note LastModifiedBy Organization Detail LastModifiedTime 12/22/1912/22/2023 rapid strep group A, throa t Strep negati ve Not Available [facility] ed [address] [place] [address], [phone], 12/22/2023 12:13:37 12/22/1912/22/2023 rapid flu (A+B) Flu negati ve Not Available [facility] ed [address] [place] [address], [phone], 12/22/2023 12:13:32 12/22/1912/22/2023 rapid SARS CoV 2 Ag, QL IA, respi rator y speci men rapid SARS CoV 2 Ag, QL IA, respiratory specimen negati ve Not Available [facility] ed [address] [place] [address], [phone], 12/22/2023 12:13:28 Result Notes None recorded. Medical Equipment None Reported. Allergies Allergen ID Allergen Name Allergen Category Reaction Reaction Severity Criticality Documentation Date Start Date Code Code System Note Provider Name and Address Organization Details Recorded Time 7046 Product containin g penicilli n (product) medicatio n Not available Not available Not available 06/07/2024 91857 8001 SNOMED Not Available [facility] - production [...] % 98 % 152.4 cm 84 /min 54314.8 g 14 /min 98.4 [degF] 130 mm[Hg] [...] % 78 /min 97.7 [degF] 18 /min 94444.5 6 g 162.56 cm 117 mm[Hg] 72 mm[Hg] Not Available [facility] - production 4 11:46:45 Social History None recorded. Functional Status None recorded. Mental Status None recorded. Family History Nothing Reported. Medical History No medical history recorded. 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 Evaluation in the field was performed by my knockout man colleague, as noted above, I provided real-time [...] care, mariluz fried in call this week. [id number] Nelson Younger MD Main - [facility] [address] [place] [phone] 12/22/2023 11:46:40 12/22/2023 15:15:53 Viral upper respiratory tract infection [id number] J06.9 Health Concerns Section Related Observation LastModified by Organization Detai ls LastModified Time None Recorded Concern Status LastModified by Organization Details LastModified Time None Recorded Advance Directives Directive None Recorded Payers Encounter Date Sequence Insurance Name Policy Number Policy Tracy Covered Member ID Tracy Member ID Guarantor Name 09/01/2023 1 [facility] - DOS ON OR AFTER 2022 - DUAL ELIGIBLE - [facility] OPTIONS AND ONE CARE (MEDICARE REPLACEMENT/ADV ANTAGE - HMO) Geovanny Khoury [id number] Geovanny Khoury 12/22/2023 1 [facility] - DOS ON OR AFTER 2022 - DUAL ELIGIBLE - [facility] OPTIONS AND ONE CARE (MEDICARE REPLACEMENT/ADV ANTAGE - HMO) Geovanny Khoury [id number] Geovanny Khoury Notes Date Note Type Note [...] ..................... ..................... ..................... ..................... ..................... ..................... ............... Event Marketing Specialist Note From David De La Torre: Pt [...] ml dark urine, clear, no sediment. At [facility] orders, troubleshooting the howe with flush and repositioning yields another 250ml urine in howe. [facility] orders BMP and UA. Values to [facility]. Pt offered at home treatment with fluid and antibiotics but requests transport to ED. Prashanth transports to [place] ED. ..................... ..................... ..................... ..................... ..................... ..................... ............... Disposition: Fulfilled Albert Mcclelland MD [address] [facility],[address], [place], [address], [employer] 09/02/2023 09:35:41 12/22/2023 text/html This was a super vised home visit with knockout man Bonnie Bishop. [facility] Nurse Triage Notes (Aaron Cuellar): Patient Reports: [...] Chest Pain, HeadachePMH: COPD/Asthma, Hypertension, DiabetesAllergies: PenicillinComments: Pulp Mill Operator verified the member's name//address and phone [...] for 3 days - Wellness check requested Event Marketing Specialist POC Test Results from Bonnie Bishop - ALS Rapid COVID antigen (1) [12:53] COVID: - Rapid influenza antigen (1) [12:53] Flu: - Rapid strep test (1) [12:53] Strep: - ..................... ..................... ..................... ..................... ..................... ..................... ............... Event Marketing Specialist Note From Bonnie Bishop: Sent to a call for a pt complaining of flu-like symptoms. SC8 arrives on scene, pt is alert and oriented, airway is patent. Pt's primary language is Turkish. Family serves as provider contracting consultant. Family states pt complains of flu-like symptoms [...] flu test: neg; Rapid strep test: neg; [facility] consulted and orders Toradol 30mg IM. Pt advised to use cough/cold medication, Tylenol 1gm TID, Albuterol inhaler to help with symptoms. Toradol 30mg IM administered without incident. Red flags discussed. Pt/family have no further questions. ..................... ..................... ..................... ..................... ..................... ..................... ............... Disposition: Fulfilled Nelson Younger MD [address] [facility],[address], [place], [address], [employer] [facility] 12/22/2023 13:07:31
--- OUTSIDE RECORDS SUMMARY | 2024-11-09 07:54 | XMS_ITS | Clinical Summary ---
Author Organization [facility] Address [address] [place] [address] Phone Care Team Providers Care [facility] Braces Orthodontist Name Role Phone Den Leal MD Primary Care Provider [phone] Allergies Active Allergy Reactions Criticality Noted Date Comments Phenytoin Sodium Extended 10/24/2024 Medications amitriptyline (ELAVIL) 25 mg tablet Take 2 tablets (50 mg total) by mouth. at bedtime 5 Active ARIPiprazole (ABILIFY) 2 mg tablet Take 1 tablet (2 mg total) by mouth 1 (one) time each day. for 30 days 5 Active aspirin 81 mg EC tablet Take 1 tablet (81 mg total) by mouth 1 (one) time each day. 5 Active atorvastatin (LIPITOR) 40 mg tablet Take 1 tablet (40 mg total) by mouth. at bedtime 5 Active bethanechol (URECHOLINE) 50 mg tablet Take 1 tablet (50 mg total) by mouth 2 (two) times a day. 4 Active FreeStyle Precision Mike Strips test strip 5 Active FreeStyle Scott 3 Suffield misc See administration instructions. 4 Active FreeStyle Scott 3 Sensor device USE DIRECTED CHANGE EVERY 14 DAYS 5 Active cholecalcifero l (VITAMIN D-3) 50 mcg (2,000 unit) capsule Take 1 capsule (2,000 Units total) by mouth 1 (one) time each day. 5 Active cyclobenzaprin e (FLEXERIL) 5 mg tablet Take 1 tablet (5 mg total) by mouth at bedtime as needed for muscle spasms. 5 Active Trulicity 1.5 mg/0.5 mL pen injector injection INJECT 1.5 MG (0.5 ML) SUBCUTANEOUSLY EVERY WEEK 4 Active DULoxetine (CYMBALTA) [address] capsule Take 1 capsule (30 mg total) by mouth 1 (one) time each day. for 30 days 5 Active fluticasone furoate-vilant Darlene (BREO ELLIPTA) 200-25 mcg/dose inhaler Inhale 1 puff by mouth 1 (one) time each day. 4 Active gabapentin (NEURONTIN) 300 mg capsule Take 1 capsule (300 mg total) by mouth 2 (two) times a day. 4 Active Lantus Solostar U-100 Insulin 100 unit/mL (3 mL) injection pen INJECT 10 UNITS (0.1 ML) SUBCUTANEOUSLY DAILY 4 Active insulin glargine-yfgn 100 unit/mL (3 mL) injection 5 Active Onetouch Delica Safety Lancet 30 gauge misc USE TO TEST DAILY 4 Active lancets (OneTouch Delica Plus Lancet) 33 gauge USE DAILY NEEDED 4 Active levETIRAcetam (KEPPRA) 500 mg tablet Take 1 tablet (500 mg total) by mouth every 12 (twelve) hours. 5 Active lisinopriL (PRINIVIL,ZEST RIL) 2.5 mg tablet Take 1 tablet (2.5 mg total) by mouth 1 (one) time each day. TAKE ONE TABLET BY MOUTH DAILY FOR 90 DAYS 5 Active meclizine (ANTIVERT) 25 mg tablet take 1 tablet by mouth 3 times a day as needed for dizziness 5 Active metFORMIN (GLUCOPHAGE) 1,000 mg tablet take 1 tablet by mouth 2 times a day for 90 days 5 Active montelukast (SINGULAIR) 10 mg tablet Take 1 tablet (10 mg total) by mouth. at bedtime. 5 Active omeprazole (PriLOSEC) [address] capsule Take 1 capsule (20 mg total) by mouth 1 (one) time each day. 5 Active Ozempic 2 mg/dose (8 mg/3 mL) injection pen 5 Active sertraline (ZOLOFT) 100 mg tablet Take 1 tablet (100 mg total) by mouth 1 (one) time each day. 5 Active traMADoL (ULTRAM) 50 mg tablet TAKE 1 TABLET BY MOUTH TWICE A DAY NEEDED FOR PAIN FOR 30 DAYS 5 Active traZODone (DESYREL) 50 mg tablet Take 1 tablet (50 mg total) by mouth. at bedtime for 30 days 5 Active Encounters Date Type Department Care Team Description 10/24/2024 10:00 AM EDT Consult Orthopedic Surgery - [facility] [address] [place] [id number] Madelyn Salcedo PA Carpal tunnel syndrome, bilateral upper limbs from Last 3 Months Social History Tobacco Use Types Packs/Day Years Used Date Smoking Tobacco: Never Assessed Sex and Gender Information Value Date Recorded Sex Assigned at Not on file Legal Sex Male 10:25 AM EST Gender Identity Not on file Sexual Orientation Not on file Plan of Treatment Upcoming Encounters Date Type Department Care Team (Late st Contact Info) Description 11/29/2024 10:00 AM EDT Office Visit Orthopedic Surgery [facility] [address] [place] [phone] Madelyn Salcedo PA [facility] [address] [place] [phone] Health Maintenance Due Date Last Done Comments Diabetes: Annual GFR (Glomerular Filtration Rate) 1952 Diabetes: Annual Foot Exam 01/07/1962 Diabetes: Annual Retina Eye Exam 01/07/1962 Abdominal Aortic Aneurysm (AAA) Screen 07/20/2022 Cholesterol Screening (Lipid Panel) 07/20/2022 Colorectal Cancer Screening: Colonoscopy 07/20/2022 Depression Screening 07/20/2022 Falls Risk Assessment 07/20/2022 Hepatitis C Screening 07/20/2022 Medicare Annual Wellness Visit 07/20/2022 Social Influencers of Health Screening 07/20/2022 Zoster Vaccines (3 of 3) 08/18/2024 06/23/2024, 10/1 01/2014 Diabetes: Annual Urine Albumin-Creatinine Ratio (uACR) 10/25/2024 Diabetes: Blood Sugar Control Test (HGBA1C) 10/25/2024 DTaP,Tdap,and Td Vaccines (2 - Td or Tdap) 06/11/2025 06/11/2015 Pneumococcal Vaccine: 50+ Years Completed 11/22/2021, 05/27/2018, 08/08/2016, Additional history exists COVID-19 Vaccine Completed 04/12/2024, , 05/20/2021, Additional history exists Influenza Vaccine Completed 05/23/2024, , 08/22/2021, Additional history exists RSV Immunization Patients 60+ Years Old Completed 06/23/2024 HIB Vaccines Aged Out No longer eligi [...] to complete this topic RSV Immunization Patients Under 20 months Aged Out No longer eligible based on patient's age to complete this topic Varicella Vaccines Aged Out No longer eligible based on patient's age to complete this topic Procedures Procedure Name Priority Date/Time Associated Diagnosis Comments XR HAND 3+ VIEWS BILAT Routine 10/24/2024 10:41 AM EDT Carpal tunnel syndrome, bilateral upper limbs XR CERVICAL SPINE 4-5 VIEWS Routine 10/24/2024 10:41 AM EDT Carpal tunnel syndrome, bilateral upper limbs from Last 3 Months Results * XR Hand 3+ Views bilat (10/24/2024 10:41 AM EDT) Anatomical Region Laterality Modality Upper Extremities, Hand Bilateral Computed Radiography Narrative 10/24/2024 11:34 AM EDT Date of Visit: 10/24/2024 Reason for visit: Bilateral hand and wrist pain Views: AP, lateral, oblique bilateral hands Comparison: None Findings: No fracture, dislocation or lytic lesions. ??Patient does have diffuse arthritic changes at the DIP PIP and metacarpal phalangeal joints of all fingers on the right. ??Mild to moderate right thumb basal joint arthritis. ??Right wrist there looks like there was a scaphoid excision and possible lunate excision though it could be AVN. ??He does have significant arthritic changes of the right wrist joints and proximal collapse of the distal carpal row. 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 Impression: Diffuse arthritic changes bilateral hands with postsurgical and arthritic changes of the right wrist. ??Bilateral basal joint arthritis left greater than right. Madelyn WALLACE IMG XR PROCEDURES Final Resul t * XR Cervical Spine 4-5 Views (10/24/2024 10:41 AM EDT) Anatomical Region Laterality Modality Spine, C-spine Computed Radiogr aphy Narrative 10/24/2024 11:36 AM EDT Date of Visit: Reason for visit: Neck pain Views: AP, lateral, oblique cervical spine Comparison: None Findings: On AP there is neuroforaminal narrowing. ??There is mild diffuse arthritic changes and mild loss of vertebral joint space. ??Straightening of normal cervical lordosis. Impression: Arthritic changes at the cervical spine. Madelyn WALLACE IMG XR PROCEDURES Final Resul t from Last 3 Months Insurance Member Subscriber Plan / Payer (Ef fective 2024-Present) Name:Geovanny Khoury Relation to Subscriber:Self Name:Geovanny Khoury Payer ID:[id number] Group ID:[id number] Type:Not on file Address: [address] [place] [address] Care Teams [facility]aces Orthodontist Relationship Specialty Start Date End Date Den Leal MD [address] [place] [address] [address] [facility] [place] [address] PCP - General Internal Medicine 09/10/11
--- OUTSIDE RECORDS SUMMARY | 2024-11-09 07:54 | XMS_ITS | Patient Health Record ---
Author Organization [facility] Address [address] [place] [phone] Care Team Providers Care Canary Breeder Name Role Phone Po Den CARLIN Primary Care Provider Bonifacio Damon [phone] Allergies Allergen (clinical drug ingredient) Drug/Non Drug Allergy documented on EMR Reaction Allergy Type Onset Date Status Penicillin itchyness/hives Drug Allergy Active Thimerosal Unknown Drug Allergy Active acetaminophen / oxycodone Percocet hives Drug Allergy Active Motrin Unknown Drug Allergy Active phenytoin Dilantin Unknown Drug Allergy Active [place] hives Drug Allergy Active Reason For Referral No Information Medications Medication SIG (Take, Route, Frequency, Duration) Notes Start Date End Date Status metFORMIN HCl 1000 MG 1 tablet with a me al Orally twice a day Active Lantus SoloStar 100 UNIT/ML ADM 20 UNI SC QD Subcutaneous for 75 Active Breo Ellipta 200-25 MCG/INH INL 1 PUFF PO QD Inhalation for 90 Active Cyanocobalamin 1000 MCG 1 tablet Orally Once a day for 30 day(s) Active Ibuprofen 600 MG 1 tablet with food o r milk as needed Orally Three times a day Not-Taking Divalproex Sodium ER 250 MG 1 tablet Orally Once a day for 30 day(s) Active Amitriptyline HCl 25 MG as directed Oral ly three times a day Active Levocetirizine Dihydrochloride 5 MG 1 tablet in the evening Orally Once a day for 30 day(s) Active Meclizine HCl 25 MG 1 tablet as needed Orally as needed 3 times a day Active Atorvastatin Calcium 40 MG Oral for 30 Days Active levETIRAcetam 500mg 1 tablet Orally Twic e a day Active Ozempic (2 MG/DOSE) 8 MG/3ML Subcutaneous for 28 Days Active ProAir HFA 108 (90 Base) MCG/ACT 1 puff as needed Inhalation every 4 hrs Active Insulin Glargine-yfgn 100 UNIT/ML INJECT 10 UNITS SUBCUTANEOUSLY DAILY Subcutaneous for 150 Days Active Aspirin 81 81 MG 1 tablet Orally Once a day for 30 day(s) Active Immunizations Vaccine Route Administration Date Status Comme nts Influenza Unknown 05/10/2018 Administered Influenza Unknown 04/10/2019 Administered Problems Problem Type SNOMED Code ICD Code Onset Dates Problem Status W/U Status Risk Notes Problem 257507418 Encounter for screening for malignant neoplasm of colon (Z12.11) Active confirmed Problem 649536866 History of adenomatous polyp of colon (Z86.010) Active confirmed Problem History of polyp of colon (situation) (831516133) Personal history of colonic polyps (Z86.010) Active confirmed Problem 421764873 Generalized abdominal pain (R10.84) Active confirmed Problem Dysphagia (85905958) Dysphagia (R13.10) Active confirmed Problem 652323518 Elevated liver function tests (R79.89) Active confirmed Problem 599867684 Elevated liver enzymes (R74.8) Active confirmed Problem 49712846 Constipation, unspecified constipation type (K59.00) Active confirmed Problem 216086128 Positive BERNARD (antinuclear antibody) (R76.8) Active confirmed Problem 616354719 BERNARD positive (R76.8) Active confirmed Vital Signs Blood pressure diastolic 11 mm Hg 11/04/2024 Height 67 in 11/04/2024 Blood pressure systolic 111 mm Hg 11/04/2024 Weight 181 lbs 11/04/2024 BMI 28.35 kg/m2 11/04/2024 Procedures Procedure Date Ordered Date Performed Result Body Sit e UPPER GI ENDOSCOPY BALLOOON DILATION OF ESOPH 11/04/2024 N/A COLONOSCOPY 11/04/2024 N/A Encounters Encounter Location Date Provider Diagnosis [facility] [address] [place] [phone] 11/04/2024 Bonifacio Camejo Colon cancer screening Z12.11 ; Personal history of colonic polyps Z86.010 and Dysphagia R13.10 [facility] [address] [place] [phone] 11/04/2024 Bonifacio Camejo Assessments Encounter Date Diagnosis (ICD Code) Assessment Notes Treatment Notes Treatment Clinical Notes Section Notes 11/04/2024 Colon cancer screening (ICD-10 - Z12.11) Overall, Geovanny appears well from a clinical standpoint. I did recommend a follow-up colonoscopy for screening purposes given his previous history of a tubular adenoma and his last colonoscopy being over 5 years ago. We did review the rationale for this in regard to colon cancer prevention. I have also recommended an upper endoscopy with possible balloon dilation given his reported history of dysphagia. He has had his previous subtotal gastrectomy in relation to ulcer disease and I think would be important to rule out any type of stricture at the level of the anastomosis or gastroesophageal junction. Full consent has been obtained from him for both procedures, including risks of bleeding and perforation. The procedures will be done with monitored anesthesia care. He was given the below instructions regarding adjustment of his medications for the procedures. Geovanny was comfortable with this plan. Thank you again for allowing me to participate in Geovanny's care. I shall continue to keep you advised of his progress. 11/04/2024 Personal history of colonic polyps (ICD-10 - Z86.010) Overall, Geovanny appears well from a clinical standpoint. I did recommend a follow-up colonoscopy for screening purposes given his previous history of a tubular adenoma and his last colonoscopy being over 5 years ago. We did review the rationale for this in regard to colon cancer prevention. I have also recommended an upper endoscopy with possible balloon dilation given his reported history of dysphagia. He has had his previous subtotal gastrectomy in relation to ulcer disease and I think would be important to rule out any type of stricture at the level of the anastomosis or gastroesophageal junction. Full consent has been obtained from him for both procedures, including risks of bleeding and perforation. The procedures will be done with monitored anesthesia care. He was given the below instructions regarding adjustment of his medications for the procedures. Geovanny was comfortable with this plan. Thank you again for allowing me to participate in Geovanny's care. I shall continue to keep you advised of his progress. 11/04/2024 Dysphagia (ICD-10 - R13.10) Overall, Geovanny appears well from a clinical standpoint. I did recommend a follow-up colonoscopy for screening purposes given his previous history of a tubular adenoma and his last colonoscopy being over 5 years ago. We did review the rationale for this in regard to colon cancer prevention. I have also recommended an upper endoscopy with possible balloon dilation given his reported history of dysphagia. He has had his previous subtotal gastrectomy in relation to ulcer disease and I think would be important to rule out any type of stricture at the level of the anastomosis or gastroesophageal junction. Full consent has been obtained from him for both procedures, including risks of bleeding and perforation. The procedures will be done with monitored anesthesia care. He was given the below instructions regarding adjustment of his medications for the procedures. Geovanny was comfortable with this plan. Thank you again for allowing me to participate in Geovanny's care. I shall continue to keep you advised of his progress. Plan Of Treatment Pending Test Test Name Order Date UPPER GI ENDOSCOPY BALLOOON DILATION OF ESOPH 11/04/2024 COLONOSCOPY 11/04/2024 LIVER PROFILE 03/06/2020 LIVER PROFILE 06/26/2020 LIVER PROFILE 01/07/2020 CERULOPLASMIN 12/13/2019 PROTEIN ELECTROPHORESIS, SERUM 0 FLUOR. ANTINUCLEAR AB SCREEN (WANG) 12/10 Future Test Test Name Order Date COLONOSCOPY 09/09/2018 Next Appt Details Provider Name:Bonifacio Camejo , 12/12/2024 01:20:00 PM, [address] [place] [address] , [place], [place], [id number], Insurance Providers Payer Name Payer Address Payer Phone Subscriber Number Group Number Insured Name Patient Relationship to Insured Coverage Start Date Coverage End Date [facility] [address] [place] [address] [id number] GEOVANNY PRITCHETT Self - patient is the insured MEDICAID OF [employer] [address] [place] [address] [id number] GEOVANNY PRITCHETT Self - patient is the insured Medical (General) History Medical History History ICD Code Colonoscopy 06-02-2008- small tubular a denoma removed He had a neg colonoscopy in 08/[address] Neri History of peptic ulcer disease-s/p B-II in NIDDM Denies [place],CVA,renal disease Neg EGD with Dr. Neri in [...] on 01/24/2020. COPD Surgical History Surgery Date(Month/Year) Cataracts Neck surgery Elbow surgery Brain tumor removed 1990 Heel surgery Hernia repair 1990 Subtotal gastrectomy with Billroth II in November 1990 for PUD
--- OUTSIDE RECORDS SUMMARY | 2024-11-09 07:54 | XMS_ITS ---
Author Organization [facility] Address [address] [place] [address] Care Team Providers Care Assistant Manager Quality Management Name Role Phone Po Den CARLIN Primary Care Provider Bonifacio Damon [phone] Allergies Allergen (clinical drug ingredient) Drug/Non Drug Allergy documented on EMR Reaction Allergy Type Onset Date Status Penicillin itchyness/hives Drug Allergy Active Thimerosal Unknown Drug Allergy Active acetaminophen / oxycodone Percocet hives Drug Allergy Active Motrin Unknown Drug Allergy Active phenytoin Dilantin Unknown Drug Allergy Active Charlotte hives Drug Allergy Active REASON FOR VISIT Patient presents today for a recall colonoscopy Medications Medication SIG (Take, Route, Frequency, Duration) Notes Start Date End Date Status Insulin Glargine-yfgn 100 UNIT/ML INJECT 10 UNITS SUBCUTANEOUSLY DAILY Subcutaneous for 150 Days Active Levocetirizine Dihydrochloride 5 MG 1 tablet in the evening Orally Once a day for 30 day(s) Active Atorvastatin Calcium 40 MG Oral for 30 Days Active Ozempic (2 MG/DOSE) 8 MG/3ML Subcutaneous for 28 Days Active Ibuprofen 600 MG 1 tablet with food o r milk as needed Orally Three times a day Not-Taking Divalproex Sodium ER 250 MG 1 tablet Orally Once a day for 30 day(s) Active Aspirin 81 81 MG 1 tablet Orally Once a day for 30 day(s) Active metFORMIN HCl 1000 MG 1 tablet [...] as needed 3 times a day Active levETIRAcetam 500mg 1 tablet Orally Twic e a day Active ProAir HFA 108 (90 Base) MCG/ACT 1 puff as needed Inhalation every 4 hrs Active Amitriptyline HCl 25 MG as directed Oral ly three times a day Active Problems Problem Type SNOMED Code ICD Code Onset Dates Problem Status W/U Status Risk Notes Problem History of polyp of colon (situation) (939809057) Personal history of colonic polyps (Z86.010) Active confirmed Problem Dysphagia (44079153) Dysphagia (R13.10) Active confirmed Vital Signs Blood pressure systolic 111 mm Hg 11/05/19 25 Blood pressure diastolic 11 mm Hg 025 Height 67 in 11/04/2024 Weight 181 lbs 11/04/2024 BMI 28.35 kg/m2 11/04/2024 Procedures Procedure Date Ordered Date Performed Result Body Sit e UPPER GI ENDOSCOPY BALLOOON DILATION OF ESOPH 11/04/2024 N/A COLONOSCOPY 11/04/2024 N/A Encounters Encounter Location Date Provider Diagnosis [facility] [address] [place] [address] 11/04/2024 Bonifacio Camejo Colon cancer screening Z12.11 ; Personal history of colonic polyps Z86.010 and Dysphagia R13.10 Assessments Encounter Date Diagnosis (ICD Code) Assessment [...] BALLOOON DILATION OF ESOPH 11/04/2024 COLONOSCOPY 11/04/2024 Next Appt Details Provider Name:Bonifacio Liss Camejo , 12/12/2024 01:20:00 PM, [address] [place] [address] , [place], [place], [phone], Progress Notes * SANDRA PRITCHETT: 2 (74 yo M)Acc No.[id number]:11/04/2024 Progress Notes Patient:?GEOVANNY PRITCHETT Provider:?Bonifacio Camejo MD :1950???Age:74 Y???Sex:Male Trace e:11/04/2024 Address:[address] [place] [address] Pcp:Den Leal MD Subjective: * Chief Complaints: * ???1. Patient presents today for a recall colonoscopy. * HPI: ???incontinence:? I saw the Geovanny in the office today for evaluation of issues with dysphagia, his personal history of tubular adenoma of the colon, and need for colorectal cancer screening. I last evaluated Geovanny in 2019 with a telemedicine visit during the pandemic. He describes that he presently feels fairly well but has been having some issues with intermittent dysphagia to hard foods . He does not have any trouble drinking liquids or having softer foods. He has not lost any weight and denies any significant heartburn, anorexia, nausea, nor vomiting. He describes that his bowel movements have been fairly regular and without any signs of bleeding. He denies any abdominal pains, signs of jaundice, nor unintentional weight loss. His labs from June 2024 revealed a hemoglobin of 11.9, MCV 87, blood cell count 10.8, platelet count 281,000, normal chemistries and renal function, and a normal liver profile.Laboratories in July 2024 revealed a hemoglobin that was increased to 12.5. * Medical History:?Colonoscopy 06-02-2008- small tubular adenoma removed, He had a neg colonoscopy in 08/[address] eNri, History of peptic ulcer disease-s/p B-II in , NIDDM, Denies MO,CVA,renal disease, Neg EGD with Dr. Neri in 08/2012--Bx neg for H.pylori, Neg CT of abdomen/pelvis in 02/2013, Depression, Seizure disorder, Asthma/COPD, Neg. colonoscopy in 02/2019, Elevated LFT's-neg. CT and U/S in early 2019 except for probable fatty liver. Completely negative liver w/u except for a + BERNARD 1:640 in a nuclear, dense fine speckled pattern(repeated x 2). However, the LFT's normalized on 01/24/2020., COPD. * Surgical History:?Subtotal g astrectomy with Billroth II in November 1990 for PUD , Hernia repair 1990, Heel surgery , Brain tumor removed 1990, Elbow surgery , Neck surgery , Cataracts . * Family History:?Father: dece ased.?Mother: .? No colorectal cancer. * Social History:?Tobacco Use:?Tobacco Use/Smoking?Are you a: nonsmoker.?Drugs/Alcohol:?Alcohol Screen?Points: 0, Interpretation: Negative.?Miscellaneous:?Marital status: . Occupation: disabled. ???Nonsmoker; no alcohol. * Medications:?Taking Amitript yline HCl 25 MG Tablet as directed Orally three times a day , Taking Meclizine HCl 25 MG Tablet 1 tablet as needed Orally as needed 3 times a day , Taking levETIRAcetam 500mg 1 tablet Orally Twice a day , Taking ProAir HFA 108 (90 Base) MCG/ACT Aerosol Solution 1 puff as needed Inhalation every 4 hrs , Taking Aspirin 81 81 MG Tablet Chewable 1 tablet Orally Once a day , Taking metFORMIN HCl 1000 MG Tablet 1 tablet with a meal Orally twice a day , Taking Lantus SoloStar 100 UNIT/ML Solution Pen-injector ADM 20 UNI SC QD Subcutaneous , Taking Breo Ellipta 200-25 MCG/INH Aerosol Powder Breath Activated INL 1 PUFF PO QD Inhalation , Taking Cyanocobalamin 1000 MCG Tablet 1 tablet Orally Once a day , Taking Divalproex Sodium ER 250 MG Tablet Extended Release 24 Hour 1 tablet Orally Once a day , Taking Levocetirizine Dihydrochloride 5 MG Tablet 1 tablet in the evening Orally Once a day , Taking Atorvastatin Calcium 40 MG Tablet Oral , Taking Ozempic (2 MG/DOSE) 8 MG/3ML Solution Pen-injector Subcutaneous , Taking Insulin Glargine-yfgn 100 UNIT/ML Solution Pen-injector INJECT 10 UNITS SUBCUTANEOUSLY DAILY Subcutaneous , Not-Taking/PRN Ibuprofen 600 MG Tablet 1 tablet with food or milk as needed Orally Three times a day , Discontinued DULoxetine HCl 30 MG Capsule Delayed Release Particles TAKE 1 CAPSULE BY MOUTH EVERY DAY FOR 30 DAYS Oral , Discontinued Gabapentin 100 MG Capsule TK 1 C PO QD Oral , Discontinued Sildenafil Citrate 50 MG Tablet 1 tablet as needed Orally Once a day , Discontinued Polyethylene Glycol - Powder as directed , Discontinued Januvia 100 MG Tablet as directed Orally Once a day , Discontinued Trulicity 0.75 MG/0.5ML Solution Pen-injector INJECT 1 PEN SUBCUTANEOUSLY WEEKLY Subcutaneous , Discontinued Lisinopril 2.5 MG Tablet TK 1 T PO QD Oral , Discontinued Sertraline HCl 50 MG Tablet TK 1 T PO QD Oral , Discontinued Meloxicam 15 MG Tablet TK 1 T PO QD Oral , Discontinued HYDROcodone- Acetaminophen 5-325 MG Tablet 1 tablet as needed Orally every 6 hrs , Discontinued tiZANidine HCl 4 MG Tablet 1 tablet as needed Orally Three times a day , Discontinued Topiramate 50 MG Tablet 2 tablet Orally Once a day , Discontinued Omeprazole 20 MG Capsule Delayed Release 1 capsule 30 minutes before morning meal Orally Once a day , Discontinued Dicyclomine HCl 10 MG Capsule TAKE 1 TO 2 CAPSULES BY MOUTH 4 TIMES DAILY NEEDED FOR ABDOMINAL PAIN/CRAMPS. , Medication List reviewed and reconciled with the patient * Allergies:?Penicillin: itchy ness/hives, Charlotte: hives, Percocet: hives, Dilantin, Motrin, Thimerosal. Objective: * Vitals:?Wt:181lbs, Ht: 67 in , BMI:28.35Index, BP:111/11mm Hg, Wt-k.1. Assessment: * Assessment: 1.?Colon cancer screening - Z12.11 (Primary)???2.?Personal history of colonic polyps - Z86.010???3.?Dysphagia - R13.10??? Overall, Geovanny appears well from a clinical [...] to keep you advised of his progress. Plan: * Treatment: 2.?Personal history of colonic polyps?Procedure: COLONOSCOPY* with MAC.Do not take any met formin the night before or the morning of the procedures.Do not take any Ozempic for at least 7 days before the procedures.Take only one half your usual dose of insulin the night before and the morning of the procedures.Do not take any aspirin for 1 week before the procedures. 3.?Dysphagia?Procedure: UPPER GI ENDOSCOPY BALLOOON DILATION OF ESOPH* with MACsched for 12/12/24 at 1:20 pm * Procedure Codes:?89957 DIAGN OSTIC COLONOSCOPY, 65188 ESOPHAGUS ENDOSCOPY * Preventive Medicine:? ??Counseling:?Care goal follow-up plan:?Above Normal BMI Follow-up?Giving encouragement to exercise,?BMI management provided?Yes.? ??Screenings:?Fall Risk Screening?Fall Risk Assessment:?No falls in the past year,?Screening:?No falls in the past year,?Assessment:?Not performed, no reason specified,?Plan of Care:?Not documented, no reason specified.? * * The named appointment provid er may or may not be the originator of this progress note, and it is not deemed complete until electronically signed by the appointment provider. Sign off status: Pending * Provider:?Bonifacio Camejo MD Date:? 025 Generated for Mukund ceballos/Bryan/Mcitting on:?11/09/2024 07:53 AM EDT
--- OUTSIDE RECORDS SUMMARY | 2024-11-09 07:54 | XMS_ITS ---
Author Organization [facility] Address [address] [place] [address] Care Team Providers Care Ram Car Operator Name Role Phone Den Leal MD Primary Care Provider Bonifacio Damon [phone] REASON FOR VISIT bowel prep Encounters Encounter Location Date Provider Diagnosis [facility] [address] [place] [phone] 11/04/2024 Bonifacio Camejo Plan Of Treatment Next Appt Details Provider Name:Bonifacio Camejo , 12/12/2024 01:20:00 PM, [address] [place] [address], [phone], Progress Notes * BILL PRITCHETTDOB: (74 yo M)Acc No.[id number]:11/04/2024 Patient:?BILL PRITCHETT :1950???Age:74 Y???Sex:Male Address:[address] [place] [address] * * Date:?
--- OUTSIDE RECORDS SUMMARY | 2024-11-09 07:54 | XMS_ITS ---
Author Organization [facility] Address [address] [place] [phone] Care Team Providers Care Breaker Tender Name Role Phone Den Leal MD Primary Care Provider Bonifacio Damon [phone] REASON FOR VISIT Patient presents today for a recall colonoscopy Encounters Encounter Location Date Provider Diagnosis [facility] [address] [facility] [address] [place] [phone] 07/19/2024 Bonifacio Camejo Plan Of Treatment Next Appt Details Provider Name:Bonifacio Camejo , 12/12/2024 01:20:00 PM, [address] [place] [address], [phone], Progress Notes * BILL PRITCHETTDOB: (74 yo M)Acc No.[id number]:07/19/2024 Progress Notes Patient:?BILL PRITCHETT Provider:?Bonifacio Camejo MD :1950???Age:74 Y???Sex:Male Trace e:07/19/2024 Address:[address] [place], [place] [phone] Pcp:Den Leal MD Subjective: * Chief Complaints: * ???1. Patient presents today for a recall colonoscopy. * Medical History:? Objective: * Vitals:? Assessment: Plan: * Treatment: * * The named appointment provid er may or may not be the originator of this progress note, and it is not deemed complete until electronically signed by the appointment provider. Sign off status: Pending * Provider:?Bonifacio Camejo MD Date:? 024 Generated for Mukund ceballos/Bryan/eTransmitting on:?11/09/2024 07:53 AM EDT
[2025-02-13 09:18] VITALS: BMI 28.3
--- NOTE | 2025-02-14 13:13 | P.CONAN_ITS ---
Documented by User: Aviva Cuevas NP 02/14/25 13:30 HPI - Anesthesia Eval Consult details Narrative: 75yo M for Colonoscopy, Upper Endoscopy with Balloon Dilitation Anesthesia Pre-Procedure Meds Is the patient on any of the following meds?: GLP1/DPP4 and SGLT2 Inhib PMFSH Active Problems Active Problems: All Active Problems Carpal tunnel syndrome on both sides (Acute) Tracheobronchial lesion (Acute) Numbness and tingling of hand (Acute) Right knee pain (Acute) Snoring (Acute) Osteoarthritis of left knee (Acute) BPPV (benign paroxysmal positional vertigo) (Acute) Urinary urgency (Acute) Incomplete bladder emptying (Acute) Hallucination (Acute) Seizure (Acute) Arthritis of right wrist (Acute) Status post proximal row carpectomy of wrist (Acute) RUQ abdominal pain (Acute) Primary osteoarthritis, right wrist (Acute) Diabetic neuropathy (Acute) Constipation (Acute) Dysphagia (Acute) Asthma (Acute) Annual physical exam (Acute) Eczema (Acute) Cervical radiculopathy (Acute) Facet arthropathy of spine (Acute) Acute CVA (cerebrovascular accident) (Acute) Lipoma of abdominal wall (Acute) Right inguinal hernia (Acute) Headache (Acute) Recurrent major depression (Acute) COVID-19 (Acute) Anemia (Acute) IBS (irritable bowel syndrome) (Acute) Hypersomnia (Acute) BPH (benign prostatic hyperplasia) (Acute) Testicular pain (Acute) Brain tumor (Acute) Hypercholesterolemia (Acute) Obesity (BMI 30-39.9) (Acute) GERD (gastroesophageal reflux disease) (Acute) Essential hypertension (Acute) Diabetes mellitus with hyperglycemia (Acute) Migraine (Acute) Past Medical History Medical History Snoring Carpal tunnel syndrome Hypersomnia Nocturia Bladder wall thickening Incontinence Lower urinary tract symptoms Other peripheral vertigo, unspecified ear Insulin long-term use Testicular pain Stroke BERNARD positive BPH (benign prostatic hyperplasia) Brain tumor Hypercholesterolemia Vitamin D deficiency Obesity (BMI 30-39.9) Vitamin B12 deficiency GERD (gastroesophageal reflux disease) Grand mal seizure disorder Erectile dysfunction Osteoarthritis COPD (chronic obstructive pulmonary disease) RLS (restless legs syndrome) Pulmonary nodule Essential hypertension Diabetes mellitus with hyperglycemia Migraine Family History Family History Father Diabetes Throat cancer Heart disease Mother Ovarian cancer Sister Dementia Brother Dementia Family history of problems with anesthesia: No Surgical History Surgical History Hx of knee surgery History of esophagogastroduodenoscopy (EGD) History of prostate surgery Hx of colonoscopy History of elbow surgery Hx of foot surgery Hx of brain surgery History of partial gastrectomy History of right inguinal hernia repair History of Problems with Anesthesia: No Social History Social History Household Members: Spouse Housing: House Are you a primary residential care facility manager to a significant other at home: No Do you presently have visiting nurse or other home services: No Alcohol intake: never Patient Tobacco Use Status: Never used Tobacco Tobacco use type: Cigarette e-Cigarette/Vaping Use: Never Used Second Hand Smoke Exposure: No Use of substances other than those prescribed or required for medical reasons: No Have you been hit, kicked, punched, or otherwise hurt by someone within the past year? If so, by whom?: No Are you DNR?: No Advance Directives: No Advance Directives Information Provided: Yes Advance Directives Date on File: 06/13/21 Poor oral hygiene: No (dentist) service: No Current occupational status: retired Current occupation: rt handed Cognitive needs: No Hearing needs: No Vision needs: Yes Meds Allergies Allergy/AdvReac Type Severity Reaction Status Date / Time aspirin (ASPIRIN) Allergy Intermediate RASH WITH Verified 12/26/24 10:43 HIGH DOSES butalbital (BUTALBITAL) Allergy Intermediate HIVES Verified 02/13/25 09:06 ibuprofen Allergy Intermediate Hives Verified 02/13/25 09:06 Penicillins Allergy Intermediate HIVES Verified 02/13/25 09:06 phenytoin (From Dilantin) Allergy Mild BURNING Verified 12/26/24 10:43 SENSATION IN BODY fexofenadine (From Charlotte) Allergy Unknown Unknown Verified 02/13/25 09:06 thimerosal (THIMEROSAL) Allergy Unknown UNKNOWN Verified 12/26/24 10:43 doxycycline AdvReac Intermediate penile rash Verified 02/13/25 09:06 Home Medications ?Medication ?Instructions ?Recorded ?Confirmed ?Last Taken ?Type acetaminophen 325 mg tablet 650 mg PO Q6H PRN Pain 03/0302/13/25 Unknown History Exam Height,Weight and Vital Signs: Height 5 ft 7 in Weight 82.1 kg Narrative Narrative: CT head/brain wo IV con 2023 IMPRESSION: No acute intracranial process seen except for left frontal lobe gliosis and left frontal craniotomy change. Reversal of cervical lordosis with degenerative disc changes with left facet joint arthropathy as described above. No visible acute fracture or dislocation seen. Mild chronic inflammatory changes of bilateral ethmoid, frontal and maxillary sinuses. No visible maxillofacial, nasal or mandibular fractures seen. Assessment and Plan Assessment Anesthesia Assessment: Chart Reviewed Final Anesthetic Review Family History of Problems with Anesthesia: No History of Problems with Anesthesia: No Documented by User: Bety Daley MD 02/15/25 09:49 [facility] Past Medical History Medical History Snoring Carpal tunnel syndrome Hypersomnia Nocturia Bladder wall thickening Incontinence Lower urinary tract symptoms Other peripheral vertigo, unspecified ear Insulin long-term use Testicular pain Stroke BERNARD positive BPH (benign prostatic hyperplasia) Brain tumor Hypercholesterolemia Vitamin D deficiency Obesity (BMI 30-39.9) Vitamin B12 deficiency GERD (gastroesophageal reflux disease) Grand mal seizure disorder Erectile dysfunction Osteoarthritis COPD (chronic obstructive pulmonary disease) RLS (restless legs syndrome) Pulmonary nodule Essential hypertension Diabetes mellitus with hyperglycemia Migraine Family History Family History Father Diabetes Throat cancer Heart disease Mother Ovarian cancer Sister Dementia Brother Dementia Surgical History Surgical History Hx of knee surgery History of esophagogastroduodenoscopy (EGD) History of prostate surgery Hx of colonoscopy History of elbow surgery Hx of foot surgery Hx of brain surgery History of partial gastrectomy History of right inguinal hernia repair Social History Social History Household Members: Spouse Housing: House Are you a primary residential care facility manager to a significant other at home: No Do you presently have visiting nurse or other home services: No Alcohol intake: never Patient Tobacco Use Status: Never used Tobacco Tobacco use type: Cigarette e-Cigarette/Vaping Use: Never Used Second Hand Smoke Exposure: No Use of substances other than those prescribed or required for medical reasons: No Have you been hit, kicked, punched, or otherwise hurt by someone within the past year? If so, by whom?: No Are you DNR?: No Advance Directives: No Advance Directives Information Provided: Yes Advance Directives Date on File: 06/13/21 Poor oral hygiene: No (dentist) service: No Current occupational status: retired Current occupation: rt handed Cognitive needs: No Hearing needs: No Vision needs: Yes Meds Allergies Allergy/AdvReac Type Severity Reaction Status Date / Time aspirin (ASPIRIN) Allergy Intermediate RASH WITH Verified 12/26/24 10:43 HIGH DOSES butalbital (BUTALBITAL) Allergy Intermediate HIVES Verified 02/13/25 09:06 ibuprofen Allergy Intermediate Hives Verified 02/13/25 09:06 Penicillins Allergy Intermediate HIVES Verified 02/13/25 09:06 phenytoin (From Dilantin) Allergy Mild BURNING Verified 12/26/24 10:43 SENSATION IN BODY fexofenadine (From Charlotte) Allergy Unknown Unknown Verified 02/13/25 09:06 thimerosal (THIMEROSAL) Allergy Unknown UNKNOWN Verified 12/26/24 10:43 doxycycline AdvReac Intermediate penile rash Verified 02/13/25 09:06 Home Medications ?Medication ?Instructions ?Recorded ?Confirmed ?Last Taken ?Type acetaminophen 325 mg tablet 650 mg PO Q6H PRN Pain 03/0302/13/25 Unknown History Exam Airway Mallampati Class: II TM Dist: >3cm Neck ROM: Limited Heart: rrr Lungs: cta Assessment and Plan Assessment Anesthesia Assessment: Anesthesia Plan Discussed Final Anesthetic Review NPO: Yes ASA Class: III Final Preanesthetic Review: No Changes in Pt Med Stat, Meds/Allgs Chart Reviewed, Consent Obtained/Reviewed and Anes Risks/Benef Reviewed Patient Risk: Intermediate Procedure Risk: Low Anesthetic Plan Anesthetic Plan: MAC: Disposition: Standard PACU
[2025-02-15 09:39] VITALS: BMI 27.8
[2025-02-15 09:57] VITALS: BP 121/64; PULSE 77; RESP 16; TEMP 36.4; O2SAT 98
[2025-02-15 11:09] LABS: Glucose, Whole Blood 86 mg/dL (60-115)
[2025-02-15 12:12] VITALS: BP 95/61; PULSE 79; RESP 18; TEMP 36.1; O2SAT 94
[2025-02-15 12:19] LABS: Glucose, Whole Blood 73 mg/dL (60-115)
--- NOTE | 2025-02-15 12:22 | PM.OP ---
Brief Operative Note Date of Service: 02/15/25 Pre-op diagnosis: Dysphagia, Screening Post-op diagnosis: other (Esophageal stricture, Hiatal hernia, Poor colon prep) Procedure: EGD with balloon dilation with an 18 to 19 to 20mm balloon, and Colonoscopy to the level of the ICV Surgeon: Bonifacio Camejo MD Anesthesia: MAC Was an Ornithology Teacher used for this Procedure?: No Estimated blood loss (mL): 2.0 Pathology: none sent Condition: stable Disposition: PACU
[2025-02-15 12:27] VITALS: BP 108/61; PULSE 75; RESP 18; TEMP 36.2; O2SAT 97
--- NOTE | 2025-02-15 12:33 | PC.NURSE ---
[facility] crna updated regarding poc in pacu, post procedure.
[2025-02-15 12:42] VITALS: BP 123/68; PULSE 67; RESP 18; TEMP 36.2; O2SAT 97
--- NOTE | 2025-02-15 12:54 | OP_ITS ---
DATE OF SERVICE: 02/15/2025 SURGEON: Bonifacio Camejo MD INDICATIONS: The patient presents for evaluation of intermittent dysphagia, personal history of tubular adenoma of the colon and colorectal cancer screening. Full consent was obtained from him for this, including risks of bleeding and perforation. PREOPERATIVE DIAGNOSIS: POSTOPERATIVE DIAGNOSIS: PROCEDURE PERFORMED: ESTIMATED BLOOD LOSS: COMPLICATIONS: ANESTHESIA: Medication used, monitored anesthesia care. ASSISTANTS: SPECIMENS: PREOPERATIVE DIAGNOSES: Dysphagia, history of tubular adenoma of the colon, and colorectal cancer screening. POSTOPERATIVE DIAGNOSES: Dysphagia, history of tubular adenoma of the colon, and colorectal cancer screening, small hiatal hernia, mild distal esophageal stricture, poor prep in colonoscopy severely limiting visualization. PROCEDURES PERFORMED: Esophagogastroduodenoscopy with balloon dilation of distal esophageal stricture and colonoscopy to the level of the ileocecal valve. DESCRIPTION OF PROCEDURE: The patient was placed in the left lateral decubitus position. The Olympus video gastroscope was passed in the posterior oropharynx and upper esophagus under direct vision. The scope was passed slowly to the distal esophagus. The gastroesophageal junction appeared at 35 cm. At this level, there was a nonobstructing fibrotic-appearing stricture, which allowed easy passage of the scope. There was no ulceration or mass. There was a small hiatal hernia and the scope was advanced to the region of the anastomosis. Each limb of the Billroth II was cannulated and appeared normal without any sign of ulceration nor obstruction. The scope was withdrawn back into the stomach. The gastric remnant appeared normal both in the forward viewing and retroflexed position. There was no sign of any mass nor ulceration. The scope was withdrawn back into the esophagus. I did use a [employer] incremental balloon to dilate the stricture from 18 mm to 19 mm to 20 mm at the recommended pressure for between 30 and 60 seconds each. Post-dilation, there was definitely some heme noted and some disruption of the stricture. The esophageal mucosa otherwise appeared normal. The scope was withdrawn from the patient. He was turned around for the colonoscopy. The digital rectal exam revealed no abnormalities. The Olympus video pediatric colonoscope was entered into the rectum and advanced to the level of the ileocecal valve. However, preparation from the rectum all the way to the ascending colon was quite poor with a lot of liquid stool, which could not be cleared. I did not bother trying to enter the cecum at that point. The scope was slowly withdrawn, but again visualization was severely limited and could not really comment on any mucosal abnormalities such as polyps. The scope was withdrawn into the rectum. Retroflexion was attempted, but again visualization was very limited. The scope was straightened and withdrawn from the patient. He tolerated both procedures well and was returned to recovery area in stable condition. IMPRESSION: 1. Hiatal hernia, esophageal stricture, status-post balloon dilation. 2. Severely limited colonoscopy due to poor prep. PLAN: The patient will start on omeprazole 20 mg daily as I do not see that he is on any acid suppression therapy. I will contact him to reschedule a colonoscopy with a 2-day prep. He will need to remain off his Ozempic for at least a week, but perhaps keeping him off that for 2 weeks would work better for the prep as well. He was advised to resume his aspirin today. MD MAGY Lopez/DENISHA / [id number] MTDD
== END 2025-02-15 13:02 | disposition home or self-care (01) ==
PROVIDERS: PCP Internal Medicine; Visit Provider Internal Medicine
PROC: 0DJD8ZZ Inspection of Lower Intestinal Tract, Via Natural or Artificial Opening Endoscopic (ICD-10-PCS; CPT 45378; principal; 2025-02-15 10:40)
DX: Z12.11 Encounter for screening for malignant neoplasm of colon (principal); Z86.0101 Personal history of adenomatous and serrated colon polyps; Z98.0 Intestinal bypass and anastomosis status; R13.10 Dysphagia, unspecified; K22.2 Esophageal obstruction; Z87.11 Personal history of peptic ulcer disease; Z90.3 Acquired absence of stomach [part of]; K44.9 Diaphragmatic hernia without obstruction or gangrene; K21.9 Gastro-esophageal reflux disease without esophagitis; E11.9 Type 2 diabetes mellitus without complications; G40.909 Epilepsy, unspecified, not intractable, without status epilepticus; J44.9 Chronic obstructive pulmonary disease, unspecified; Z86.011 Personal history of benign neoplasm of the brain; Z79.82 Long term (current) use of aspirin; Z79.4 Long term (current) use of insulin; Z79.84 Long term (current) use of oral hypoglycemic drugs; Z79.85 Long-term (current) use of injectable non-insulin antidiabetic drugs; Z98.890 Other specified postprocedural states
CPT/HCPCS: 43249; G0105; 82947; C1726; J2704

== ENCOUNTER 2025-03-08 19:59 | Emergency (ER) | payer OTHER, SELFPAY ==
--- OUTSIDE RECORDS SUMMARY | 2025-02-15 06:40 | XMS_ITS ---
Author Organization [facility] Address [address] [place] [address] Care Team Providers Care Administration Manager Name Role Phone Den Leal MD Primary Care Provider Bonifacio Damon [phone] REASON FOR VISIT screening,hx polyps,dysphagia Encounters Encounter Location Date Provider Diagnosis [facility] [address] [place], [place] [phone] 02/15/2025 Bonifacio Camejo Plan Of Treatment No Information Progress Notes * BILL PRITCHETTDOB: 2 (75 yo M)Acc No.[id number]:02/15/2025 EGD and COL/MAC Patient: BILL GILBERT Provider: Dante Camejo MD :1950 A ge:75 Y S ex:Male Date:02/15/2025 Address:[address] [place], [place] [phone] Pcp:Den Leal MD Subjective: * Chief Complaints: [...] Date: 02/15/2025 Generated for Mukund ceballos/Bryan/eTfanyitting on: 03/08/2025 08:42 PM EDT
--- NOTE | ~2025-03-08 | XR_ITS ---
CLINICAL HISTORY: trauma 5 view left knee Comparison: None provided Findings: No fractures or dislocations. Tricompartment osteophyte formation without significant joint space loss. No joint effusion. Heavy vascular calcification. No radiopaque foreign body. IMPRESSION: 1. No acute appearing fracture or malalignment. No joint effusion. This document has been electronically signed by: Lashanda Small MD on 03/08/2025 20:37:32
--- NOTE | ~2025-03-08 | XR_ITS ---
CLINICAL HISTORY: trauma 3 view left ankle Comparison: None provided Findings: There is lateral soft tissue swelling. Heavy vascular calcification. Plantar and superior calcaneal spurs. Mild midfoot joint space loss with osteophyte formation. no acute fracture identified. IMPRESSION: 1. Degenerative change with mild lateral soft tissue swelling. No acute fracture identified. This document has been electronically signed by: Lashanda Small MD on 03/08/2025 20:42:51
--- NOTE | ~2025-03-08 | US_ITS ---
CLINICAL HISTORY: fall, calf pain, swelling ULTRASOUND LEFT LOWER EXTREMITY VENOUS DUPLEX STUDY COMPARISON: None provided. TECHNIQUE: Grayscale, spectral Doppler, and color flow analysis of the left lower extremity venous system was performed. FINDINGS: There is no evidence of a deep venous thrombosis. The common femoral, femoral, popliteal, and visualized deep calf veins are patent. There are no fluid collections. IMPRESSION: 1. No evidence of a DVT. This document has been electronically signed by: Chas Tomas M.D. on 03/08/2025 22:48:20
[2025-03-08 20:03] VITALS: BP 142/85; PULSE 101; RESP 16; TEMP 36.5; O2SAT 97; BMI 27.2
--- NOTE | 2025-03-08 20:05 | ED_ITS ---
HPI - General Adult General Chief complaint: Extremity Injury, Lower Stated complaint: fell down 6 days go, lt leg pain Time Seen by Provider: 03/08/25 21:08 Source: patient Mode of arrival: ambulatory Limitations: no limitations History of Present Illness ED Provider: Dr. Katelyn Irby HPI narrative: Patient comes to the emergency room complaining of left lower extremity swelling and pain. Patient states that about 6 days ago he fell out of the bed. Patient states that he hit his petersen when he fell. Patient uses a cane and has been ambulating. Patient states that he has noticed that his left leg keeps getting more swollen especially in the distal extremity. Patient denies any other injury, denies hitting his head or losing consciousness, denies being on blood thinners. 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,cont) FreeStyle Scott 3 Sensor #9 ea 03/31/24 (blood-glucose sensor) Grab bars for bathroom #2 ea 04/14/24 adult pull ups #100 ea 04/14/24 bed rails #2 ea 04/14/24 hand held shower #1 ea 04/14/24 shower chair #1 ea 04/14/24 shower bench with back #1 ea 04/14/24 gabapentin 300 mg capsule 300 mg PO BID #180 caps 04/10 04/02 FreeStyle Precision Mike Strips #50 ea 05/03/24 (blood sugar diagnostic) lancets 30 gauge (OneTouch #100 ea 05/03/24 UltraSoft 2 Lancet) fluticasone furoate 200 1 inh inhalation DAILY #60 e a 05/24/24 mcg-vilanterol 25 mcg/dose inhalation powder (Breo Ellipta) lisinopril 2.5 mg tablet 2.5 mg PO DAILY 90 days #90 tabs 05/27/24 hydrocortisone acetate 25 mg 25 mg HI BID #12 ea 06/11 rectal suppository (Anusol-HC) cholecalciferol (vitamin D3) 50 2,000 unit PO DAILY #9 0 caps 07/13/24 mcg (2,000 unit) capsule quad cane #1 ea 08/23/24 cyclobenzaprine 5 mg tablet 5 mg PO BEDTIME PRN muscle spasm 09/19/24 #14 tabs tramadol 50 mg tablet 50 mg PO BID PRN pain 30 day s #60 09/21/24 tabs montelukast 10 mg tablet 10 mg PO BEDTIME 90 days #90 tabs 10/05/24 (Singulair) sertraline 100 mg tablet 100 mg PO DAILY #90 tabs metformin 1,000 mg tablet 1,000 mg PO BID 90 days #180 tabs 10/10/24 insulin glargine 100 unit/mL (3 10 unit (0.1 mL) subcu t DAILY #15 10/17/24 mL) subcutaneous pen (Lantus mL Solostar U-100 Insulin) atorvastatin 40 mg tablet 40 mg PO BEDTIME #90 tabs empagliflozin 10 mg tablet 10 mg PO DAILY #30 tabs (Jardiance) aspirin 81 mg tablet,delayed 81 mg PO DAILY #90 tabs 0 01/11/25 release levetiracetam 500 mg tablet 500 mg PO Q12H #180 tabs 0 01/11/25 semaglutide 2 mg/dose (8 mg/3 mL) 2 mg (0.75 mL) subcu t QWEEK #3 mL 01/14/25 subcutaneous pen injector (Ozempic) amitriptyline 25 mg tablet 50 mg (2 x 25 mg) PO BEDTIM E #180 01/27/25 tabs meclizine 25 mg tablet 25 mg PO TID PRN dizziness # 60 tabs 01/27/25 omeprazole 20 mg capsule,delayed 20 mg PO DAILY 90 day s #90 caps 01/27/25 release Allergies Allergy/AdvReac Type Severity Reaction Status Date / Time aspirin (ASPIRIN) Allergy Intermediate RASH WITH Verified 03/08/25 20:08 HIGH DOSES butalbital (BUTALBITAL) Allergy Intermediate HIVES Verified 03/08/25 20:08 ibuprofen Allergy Intermediate Hives Verified 03/08/25 20:08 Penicillins Allergy Intermediate HIVES Verified 03/08/25 20:08 phenytoin (From Dilantin) Allergy Mild BURNING Verified 03/08/25 20:08 SENSATION IN BODY fexofenadine (From [place]) Allergy Unknown Unknown Verified 03/08/25 20:08 thimerosal (THIMEROSAL) Allergy Unknown UNKNOWN Verified 03/08/25 20:08 doxycycline AdvReac Intermediate penile rash Verified 03/08/25 20:08 Review of Systems Review of Systems: Constitutional : No Weight loss, No Fever, No Chills, No Night Sweats, No Fatigue, No Malaise ENT/Mouth : No Hearing loss, No Ear Pain, No Nasal Congestion, No Sinus Pain, No Hoarseness, No sore throat, No Rhinorrhea, No Swallowing Difficulty Eyes: No Eye Pain, No Swelling, No Redness, No Foreign Body, No Discharge, No Vision Changes Cardiovascular : No Chest Pain, No SOB, No Dyspnea on Exertion, No Orthopnea, No Edema, No Palpitations Respiratory : No Cough, No Sputum, No Wheezing, No Smoke Exposure, No Dyspnea Gastrointestinal : No Nausea, No Vomiting, No Diarrhea, No Constipation, No abdominal Pain, No Hematochezia, No Melena Genitourinary : no irregular bleeding, No Dysuria, No Urinary Frequency, No Hematuria, No Urinary Incontinence, No Urgency, No Flank Pain, No Urinary Flow Changes, No Hesitancy Musculoskeletal : Complaining of left ankle pain and left lower extremity swelling Skin : No Skin Lesions, No rash Neuro : No Weakness, No Numbness, No Paresthesias, No Loss of Consciousness, No Dizziness, No Headache Psych : No Anxiety/Panic, No Depression, No SI/HI/AH/VH, No Social Issues, Heme/Lymph: No Bruising, No Bleeding,No Lymphadenopathy Endocrine : No Polyuria, No Polydipsia, No Temperature Intolerance [facility] Past Medical History Medical History Snoring Carpal tunnel syndrome Hypersomnia Nocturia Bladder wall thickening Incontinence Lower urinary tract symptoms Other peripheral vertigo, unspecified ear Insulin long-term use Testicular pain Stroke BERNARD positive BPH (benign prostatic hyperplasia) Brain tumor Hypercholesterolemia Vitamin D deficiency Obesity (BMI 30-39.9) Vitamin B12 deficiency GERD (gastroesophageal reflux disease) Grand mal seizure disorder Erectile dysfunction Osteoarthritis COPD (chronic obstructive pulmonary disease) RLS (restless legs syndrome) Pulmonary nodule Essential hypertension Diabetes mellitus with hyperglycemia Migraine Surgical History Hx of knee surgery History of esophagogastroduodenoscopy (EGD) History of prostate surgery Hx of colonoscopy History of elbow surgery Hx of foot surgery Hx of brain surgery History of partial gastrectomy History of right inguinal hernia repair Family History Family History Father Diabetes Throat cancer Heart disease Mother Ovarian cancer Sister Dementia Brother Dementia Social History Social History Household Members: Spouse Housing: House Are you a primary direct support professional caregiver to a significant other at home: No Do you presently have visiting nurse or other home services: No Alcohol intake: former Patient Tobacco Use Status: Never used Tobacco Tobacco use type: Cigarette Smoked in Last 30 Days: No e-Cigarette/Vaping Use: Never Used Second Hand Smoke Exposure: No Use of substances other than those prescribed or required for medical reasons: No Advance Directives: Yes Advance Directives on File: Yes Advance Directives Date on File: 06/13/21 service: No Current occupational status: retired Current occupation: rt handed Cognitive needs: No Hearing needs: No Vision needs: Yes Physical Exam ED Exam Exam: Appearance: Alert. Oriented X3. No acute distress. Eyes: Pupils equal, round and reactive to light. ENT: Pharynx normal. Neck: Normal inspection. Neck supple. No lymph nodes noted. No crepitus CVS: Normal heart rate and rhythm. Pulses normal. Normal S1 and S2 Respiratory: No respiratory distress. Breath sounds normal. No Wheezing. No rales Abdomen: Soft and nontender. No rigidity. No distention. Skin: Skin warm and dry. Normal skin color. Normal skin turgor. Extremities: Nonpitting edema +2 in left lower extremity, pain to palpation and calf, ecchymosis over the petersen. Pain to palpation. Patient ambulatory with a cane Neuro: Oriented X 3. No motor deficit. No sensory deficit. Moving all extremities. No slurred speech. CN 2 through 12 grossly intact Psych: calm, cooperative, normal affect Vital Signs: Vital Signs - 24 hr 03/08/25 20:03 03/08/25 21:43 Temperature 97.7 F 98.2 F Pulse Rate 101 H 80 Respiratory Rate 16 16 Blood Pressure 142/85 H 116/73 Pulse Oximetry 97 99 Oxygen Delivery Method Room Air Room Air BMI result Body Mass Index 27.2 Course Course Course Narrative: RME, this is a rapid medical exam performed by Aubrey Dangelo please refer to primary provider for complete H&P- 75-year-old male presents for evaluation of left leg pain. He reports falling and a bed 6 days ago. He has pain to most of his left lower leg primarily at the base of the left knee and left ankle. Plan for x-rays. He does have moderate ecchymosis on exam with a edema. He is ambulatory with a cane Medical Decision Making Medical Decision Making MDM Narrative: X-rays of the left knee and ankle did not show any acute abnormality, only chronic degenerative changes. Ultrasound of the lower extremity is negative for DVT Patient is already ambulatory with a cane. Patient's swelling is secondary due to musculoskeletal injury. Differential Diagnosis Differential Diagnoses: The differential diagnosis associated with the presentation includes (Contusion, fracture, dislocation, DVT) Admission/Observation Consideration of admission/observation: Escalation of care including admission/observation considered (Given patient's history and physical exam findings, observation was considered) Independent Interpretation I performed an independent interpretation of an: Plain X-Ray and Ultrasound Radiology Impression Discussion of test interpretation with radiology: I have reviewed the radiologist's reading. Radiologist Impression: There is lateral soft tissue swelling. Heavy vascular calcification. Plantar and superior calcaneal spurs. Mild midfoot joint space loss with osteophyte formation. no acute fracture identified. IMPRESSION: 1. Degenerative change with mild lateral soft tissue swelling. No acute fracture identified. No fractures or dislocations. Tricompartment osteophyte formation without significant joint space loss. No joint effusion. Heavy vascular calcification. No radiopaque foreign body. IMPRESSION: 1. No acute appearing fracture or malalignment. No joint effusion. FINDINGS: There is no evidence of a deep venous thrombosis. The common femoral, femoral, popliteal, and visualized deep calf veins are patent. There are no fluid collections. IMPRESSION: 1. No evidence of a DVT. Critical Care Time Critical Care Time Critical Care Time: Yes Total Critical Care Time: 35 Attestation: I have personally provided critical care time. Time includes review of lab data, radiology results, discussion with consultants, and monitoring for potential decompensation. Intervention performed as documented. Discharge Plan Discharge Clinical Impression: Edema of lower extremity, Contusion of left leg Patient Disposition: Home, Self-Care Instructions: Leg Edema (ED), Contusion in Adults (ED) Prescriptions: No Action albuterol sulfate [Ventolin HFA] 90 mcg/actuation HFA aerosol inhaler 2 puff PO Q4-6H PRN (Reason: for wheezing) Qty: 18 0RF (DME) adult pull ups medium See Rx Instructions .Route .MEDSUPPLY Qty: 100 0RF Rx Instructions: As directed (DME) bed rails See Rx Instructions .Route .MEDSUPPLY Qty: 2 0RF Rx Instructions: As directed (DME) Grab bars for bathroom See Rx Instructions .Route .MEDSUPPLY Qty: 2 0RF Rx Instructions: As directed (DME) hand held shower See Rx Instructions .Route .MEDSUPPLY Qty: 1 0RF Rx Instructions: As directed (DME) shower bench with back See Rx Instructions .Route .MEDSUPPLY Qty: 1 0RF Rx Instructions: As directed (DME) shower chair See Rx Instructions .Route .MEDSUPPLY Qty: 1 0RF Rx Instructions: As directed gabapentin 300 mg capsule 300 mg PO BID Qty: 180 1RF (DME) FreeStyle Precision Mike Strips Strip See Rx Instructions .Route Qty: 50 3RF Rx Instructions: Once daily as needed to check blood glucose when CGM reads high or low (DME) lancets [OneTouch UltraSoft 2 Lancet] 30 gauge misc See Rx Instructions .Route Qty: 100 3RF Rx Instructions: DAILY fluticasone furoate-vilanterol [Breo Ellipta] 200-25 mcg/dose blister with device 1 inh inhalation DAILY Qty: 60 2RF lisinopril 2.5 mg tablet 2.5 mg PO DAILY 90 Days Qty: 90 3RF cholecalciferol (vitamin D3) 50 mcg (2,000 unit) capsule 2,000 unit PO DAILY Qty: 90 2RF cyclobenzaprine 5 mg tablet 5 mg PO BEDTIME PRN (Reason: muscle spasm) Qty: 14 0RF tramadol 50 mg tablet 50 mg PO BID PRN (Reason: pain) 30 Days Qty: 60 1RF sertraline 100 mg tablet 100 mg PO DAILY Qty: 90 2RF montelukast [Singulair] 10 mg tablet 10 mg PO BEDTIME 90 Days Qty: 90 2RF metformin 1,000 mg tablet 1,000 mg PO BID 90 Days Qty: 180 2RF Lantus Solostar U-100 Insulin 100 unit/mL (3 mL) insulin pen 10 unit subcut DAILY Qty: 15 1RF atorvastatin 40 mg tablet 40 mg PO BEDTIME Qty: 90 3RF aspirin 81 mg tablet,delayed release (DR/EC) 81 mg PO DAILY Qty: 90 3RF levetiracetam 500 mg tablet 500 mg PO Q12H Qty: 180 1RF Ozempic 2 mg/dose (8 mg/3 mL) pen injector 2 mg subcut QWEEK Qty: 3 3RF omeprazole 20 mg capsule,delayed release(DR/EC) 20 mg PO DAILY 90 Days Qty: 90 1RF amitriptyline 25 mg tablet 50 mg PO BEDTIME Qty: 180 3RF meclizine 25 mg tablet 25 mg PO TID PRN (Reason: dizziness) Qty: 60 8RF hydrocortisone acetate [Anusol-HC] 25 mg suppository 25 mg HI BID Qty: 12 0RF acetaminophen 325 mg Tablet 650 mg PO Q6H PRN (Reason: Pain) (DME) Compact Compressor Nebulizer Misc See Rx Instructions .Route Qty: 1 0RF Rx Instructions: As directed ([facility]) nebulizer accessories Kit See Rx Instructions .Route Qty: 1 0RF Rx Instructions: As directed ([facility]) pen needle, diabetic [BD Ultra-Fine Mini Pen Needle] 31 gauge x 3/16 needle See Rx Instructions .Route Qty: 100 3RF Rx Instructions: As directed Inject LAntus 10 u QD ([facility]) FreeStyle Scott 3 Lohman Misc See Rx Instructions .Route Qty: 1 0RF Rx Instructions: As directed ([facility]) FreeStyle Scott 3 Sensor Device See Rx Instructions .Route Qty: 9 5RF Rx Instructions: As directed change every 14 days ([facility]) quad cane See Rx Instructions .Route .MEDSUPPLY Qty: 1 0RF Rx Instructions: As directed Jardiance 10 mg tablet 10 mg PO DAILY Qty: 30 4RF Print Language: Turkmen
--- OUTSIDE RECORDS SUMMARY | 2025-03-08 20:42 | XMS_ITS | Encounter Summary ---
Author Organization [facility] Address [address] [place] [address] Encounters * CPT with [facility] at [facility] on 2025-03-08 { reasonForRequest : Patient fell out of the bed, and now has leg and foot pain. This happened 4 days ago, but still has foot and leg pain. , patientReports : Weakness with fall, able to move all extremities , denies :[ Falls with head strike and LOC , Falls from a standing position, no LOC, patient is amnestic to the event ,"Falls with isolated injury and deformity noted to limb , Falls with inability to move post fall , Cool extremities after fall or injury ], chiefComplaints : Extremity Swelling, Falls , pmh : COPD/Asthma, Hypertension, Diabetes Mellitus Type 2, Depression, Migraine , allergies : Penicillins , otherAllergies :null, painAssessment : , visitOutcome : , additionalComments : 75 y.o male complains of Extremity Swelling, Falls\n\nWife calling aboutLLE pain:\nFell out of bed 4 days ago onto LLE\nPainful but now getting worse\nLeg is red and swolle n - from knee down \nUnable to feel his toes\nDenies cyanosis of foot/toes\nLLE is twice as big as his RLE\nAble to walk on it - limping \nDiscussed inability to provide imaging to LLE, pt understanding[facility] \n\n\nI provided information on the mobilehealth provider response time and advised the patient and/or caregiver to monitor reported signs and symptoms. I discussed the warning signs of when to seek emergency care. } This 75-year-old male with a history including but not limited to COPD, HTN, DM type II, depression, migraines requested a visit today address worsening pain and swelling in his left lower extremity secondary to rolling out of bed falling to the floor four nights ago. Patient states his left foot has been numb since this morning and his leg feels like it's throbbing. Patient denies any loss of consciousness and is not anticoagulated. Patient presents awake and alert, visibly uncomfortable and speaking full sentences. His vital signs are reasonably stable and he is afebrile. Nonfocal neurological exam. Lungs are clear throughout auscultation. Abdomen is soft, nontender, nondistended. Left lower extremity from ankle to knee is swollen, dark red and hot to touch, weak distal pulses. We discussed the diagnostic uncertainty of home visits and the risk associated with this. In this case, the [facility] and I agree that the patient would benefit from emergency department evaluation. Patient requested ambulance transport to [facility] emergency department. 911 was initiated and SBAR was given to Prashanth MCCLOUD. IV_(FLUIDS_AND/OR_MEDICATION), MEDICATION_IM, ORAL_MEDICATION, EKG, GLUCOSE, WOUND_CARE, ORTHOSTATIC_VITAL_SIGNS Written by Medical [facility] on 2025-03-08
--- OUTSIDE RECORDS SUMMARY | 2025-03-08 20:42 | XMS_ITS | Encounter Summary ---
Author Organization [facility] Address [id number] [place] [id number] Care Team Providers Care On Air Announcer Name Role Phone Den Leal MD Primary Care Provider [phone] Reason for Visit * Reason Onset Date Comments Prior Auth 03/08/2025 Encounter Details Date Type Department Care Team (Late st Contact Info) Description 03/08/2025 Telephone Orthopedic Surgery [facility] [address] [facility] [address] [place] [phone] Kaila Em MD 175 [facility] [address] [place] [address] Prior Auth Social History Tobacco Use Types Packs/Day Years Used Date Smoking Tobacco: Never Assessed Sex and Gender Information Value Date Recorded Sex Assigned at Not on file Legal Sex Male 10:25 AM EST Gender Identity Not on file Sexual Orientation Not on file documented as of this encounter Progress Notes * Jose Francisco Yanez - 03/08/2025 2:34 PM EDT Images from the original note were not included. Per [facility] portal CPT codes 44343 and 96446 don't need an authorization. documented in this encounter Plan of Treatment Upcoming Encounters Date Type Department Care Team (Latest Contact Info) Description 03/27/2025 10:00 AM EDT Office Visit Orthopedic Surgery [facility] 175 [facility] [address] [place] [phone] Kaila Em MD 175 [facility] [address] [place] [phone] 03/29/2025 11:15 AM EDT Hospital Encounter [facility] [place] [address] [place] [phone] Kaila Em MD [address] [phone] 03/29/2025 11:15 AM EDT - 03/29/2025 1:00 PM EDT Surgery [facility] Main [place] [address] [place] [phone] Kaila Em MD [address] [phone] ENDOSCOPIC RELEASE LEFT CARPAL TUNNEL [[id number] (CPT )] 04/11/2025 1:30 PM EDT Office Visit Orthopedic Surgery - [address] [phone] Kaila Em MD [address] [phone] Scheduled Procedures Name Priority Associated Diagnoses Date/Ti me RELEASE CARPAL TUNNEL ENDOSCOPIC Carpal tunnel syndrome on left Cubital tunnel syndrome on left 03/29/2025 11:15 AM EDT TRANSPOSITION ULNAR NERVE Carpal tunnel syndrome on left Cubital tunnel syndrome on left 03/29/2025 11:15 AM EDT documented as of this encounter Visit Diagnoses Not on filedocumented in this encounter Care Teams On Air Announcer Relationship Specialty Start Date End Date Den Leal MD [address] [place] [address] [address] [facility] [place] [address] PCP - General Internal Medicine 09/10/11 documented as of this encounter
[2025-03-08 21:43] VITALS: BP 116/73; PULSE 80; RESP 16; TEMP 36.8; O2SAT 99
[2025-03-08 23:21] VITALS: BP 121/68; PULSE 80; RESP 14; TEMP 36.8; O2SAT 99
--- NOTE | 2025-03-08 23:22 | PC.NURSE ---
Reviewed discharge instructions with pt. pt verbalized understanding, no sign of distress .
[2025-03-08 23:23] VITALS: BP 121/68; PULSE 80; RESP 14; TEMP 36.8; O2SAT 99
== END 2025-03-08 23:24 | disposition home or self-care (01) ==
PROVIDERS: Emergency Provider Emergency Medicine; PCP Internal Medicine
DX: S80.12XA Contusion of left lower leg, initial encounter (principal); W06.XXXA Fall from bed, initial encounter; Y93.9 Activity, unspecified; Y92.9 Unspecified place or not applicable; Y99.9 Unspecified external cause status; M79.605 Pain in left leg
CPT/HCPCS: 73564; 73610; 93971; 99284

== ENCOUNTER → 2025-03-08 20:06 | Outpatient (BNV) | payer OTHER, SELFPAY | PROVIDERS: PCP Internal Medicine; Visit Provider Radiology Diagnostic Radiology | DX: R22.42 Localized swelling, mass and lump, left lower limb (principal); M25.762 Osteophyte, left knee; M25.572 Pain in left ankle and joints of left foot | CPT/HCPCS: 73564; 73610; 93971 ==

== ENCOUNTER 2025-03-16 12:56 | Outpatient (REF) | payer OTHER, SELFPAY ==
--- NOTE | ~2025-03-16 | XR_ITS ---
EXAMINATION: XR TIBIA AND FIBULA, LEFT CLINICAL INFORMATION: Left leg pain. COMPARISON: None available. TECHNIQUE: AP and lateral views of the left tibia and fibula were obtained. FINDINGS: No fracture, dislocation, or suspicious bone lesion. Normal bone mineralization. Normal alignment. Imaged joints appear normal. Soft tissues demonstrate diffuse vascular calcifications. XR/XR tibia fibula LT 2V IMPRESSION: 1. No acute findings of the left tibia and fibula. Electronically signed by: Miguel Cowan MD 03/16/2025 02:29 PM EDT
== END 2025-03-16 12:57 | disposition home or self-care (01) ==
LOC: HO.XRAY 12:56
PROVIDERS: PCP Internal Medicine
DX: M79.605 Pain in left leg (principal); M54.12 Radiculopathy, cervical region
CPT/HCPCS: 73590; 99212

== ENCOUNTER 2025-03-16 12:56 | Outpatient (AMB) | payer OTHER, SELFPAY ==
--- OUTSIDE RECORDS SUMMARY | 2025-02-15 06:40 | XMS_ITS ---
Author Organization [facility] Address [address] [place] [address] Care Team Providers Care General Engineer Name Role Phone Den Leal MD Primary Care Provider Bonifacio Damon [phone] REASON FOR VISIT screening,hx polyps,dysphagia Encounters Encounter Location Date Provider Diagnosis [facility] [address] [place], [place] [phone] 02/15/2025 Bonifacio Camejo Plan Of Treatment No Information Progress Notes * BILL PRITCHETTDOB: 2 (75 yo M)Acc No.[id number]:02/15/2025 EGD and COL/MAC Patient: BILL GILBERT Provider: Dante Camejo MD :1950 A ge:75 Y S ex:Male Date:02/15/2025 Address:[address] [place], [place] [phone] Pcp:Den Leal MD Subjective: * Chief Complaints: * 1 . Screening,hx polyps,dysphagia. * Medical History: Objective: * Vitals: Assessment: Plan: * Treatment: * * The named appointment provid er may or may not be the originator of this progress note, and it is not deemed complete until electronically signed by the appointment provider. Sign off status: Pending * Provider: Dante Camejo MD Date: 02/15/2025 Generated for Mukund ceballos/Bryan/eTfanyitting on: 03/16/2025 12:58 PM EDT
--- OUTSIDE RECORDS SUMMARY | 2025-03-16 12:58 | XMS_ITS | Encounter Summary ---
Author Organization [facility] Address [id number] [place] [id number] Care Team Providers Care Educational/Development Assistant Name Role Phone Den Leal MD Primary Care Provider [phone] Encounter Details Date Type Department Care Team (Late Contact Info) Description 03/13/[address] [facility] [address] [facility] [address] [place] [address] Kaila Em MD 175 [facility] [address] [place] [address] Social History Tobacco Use Types Packs/Day Years Used Date Smoking Tobacco: Never Assessed Sex and Gender Information Value Date Recorded Sex Assigned at Not on file Legal Sex Male 10:25 AM EST Gender Identity Not on file Sexual Orientation Not on file documented as of this encounter Progress Notes * Jose Francisco Yanez - 03/13/2025 3:34 PM EDT Images from the original note were not included. Per [facility] portal no prior authorization is required for CPT codes 05089 and 58854. documented in this encounter Plan of Treatment Upcoming Encounters Date Type Department Care Team (Late Contact Info) Description 03/27/2025 10:00 AM EDT Office Visit Orthopedic Surgery [facility] 175 [facility] [address] [place] [address] Kaila Em MD [address] [address] 04/11/2025 1:30 PM EDT Office Visit Orthopedic Surgery [facility] 175 [facility] [address] [place] [phone] Kaila Em MD 175 [facility] [address] [place] [phone] documented as of this encounter Visit Diagnoses Not on filedocumented in this encounter Care Teams Educational/Development Assistant Relationship Specialty Start Date End Date Den Leal MD [address] [place] [address] [address] [facility] [place] [address] PCP - General Internal Medicine 09/10/11 documented as of this encounter
--- NOTE | 2025-03-16 13:08 | A.OFFPC_ITS ---
Vital Signs 03/16/25 13:10 Height 5 ft 4 in Weight 160 lb 8 oz BMI 27.5 BP 98/50 L Blood Pressure Location Lt brachial Position Sitting Pulse 79 Pulse Source Pulse Oximeter Pulse Oximetry (%) 98 Oxygen Delivery Method Room Air Intake Visit Reasons: [facility] 03/08 fell down 6 days go, lt leg pain Car Customizer Required: No Accompanied by: Self / Same As Patient Allergies aspirin (ASPIRIN) Allergy (Intermediate, Verified 03/16/25 13:23) RASH WITH HIGH DOSES butalbital (BUTALBITAL) Allergy (Intermediate, Verified 03/16/25 13:23) HIVES ibuprofen Allergy (Intermediate, Verified 03/16/25 13:23) Hives Penicillins Allergy (Intermediate, Verified 03/16/25 13:23) HIVES phenytoin (From Dilantin) Allergy (Mild, Verified 03/16/25 13:23) BURNING SENSATION IN BODY fexofenadine (From [place]) Allergy (Unknown, Verified 03/16/25 13:23) Unknown thimerosal (THIMEROSAL) Allergy (Unknown, Verified 03/16/25 13:23) UNKNOWN doxycycline Adverse Reaction (Intermediate, Verified 03/16/25 13:23) penile rash Medication List - Last Reconciled 03/16/25 by Edna Camacho PA-C acetaminophen 650 mg PO Q6H PRN [adult pull ups As directed] albuterol sulfate 90 mcg/actuation (Ventolin HFA) 2 puffs PO Q4-6H PRN amitriptyline 50 mg (2 x 25 mg) PO BEDTIME aspirin 81 mg PO DAILY atorvastatin 40 mg PO BEDTIME [bed rails As directed] cholecalciferol (vitamin D3) 2,000 units PO DAILY cyclobenzaprine 5 mg PO BEDTIME PRN empagliflozin (Jardiance) 10 mg PO DAILY fluticasone furoate-vilanterol 200-25 mcg/dose (Breo Ellipta) 1 inh inhalation DAILY FreeStyle Scott 3 Iuka (blood-glucose,refractory bricklayer,cont) As directed NS FreeStyle Scott 3 Sensor (blood-glucose sensor) As directed change every 14 days NS FreeStyle Precision Mike Strips (blood sugar diagnostic) Once daily as needed to check blood glucose when CGM reads high or low NS gabapentin 300 mg PO BID [Grab bars for bathroom As directed] [hand held shower As directed] hydrocortisone acetate (Anusol-HC) 25 mg ND BID insulin glargine (Lantus Solostar U-100 Insulin) 10 units (0.1 mL) subcut DAILY lancets (OneTouch UltraSoft 2 Lancet) DAILY levetiracetam 500 mg PO Q12H lisinopril 2.5 mg PO DAILY 90 days meclizine 25 mg PO TID PRN metformin 1,000 mg PO BID 90 days montelukast (Singulair) 10 mg PO BEDTIME 90 days nebulizer accessories As directed nebulizers (Compact Compressor Nebulizer) As directed omeprazole 20 mg PO DAILY 90 days pen needle, diabetic (BD Ultra-Fine Mini Pen Needle) As directed Inject LAntus 10 u QD [quad cane As directed] semaglutide (Ozempic) 2 mg (0.75 mL) subcut QWEEK sertraline 100 mg PO DAILY [shower chair As directed] [shower bench with back As directed] tramadol 50 mg PO BID PRN 30 days Tobacco use date assessed: 03/16/25 Fall risk assessment: 2 + Falls in past year Last assessed Fall Risk: 03/16/25 Dental Screening Dental Screen Date: 03/16/25 Did you have a dental visit in the last 12 months?: No Did you have a dental problem in the last 6 months where you did not have access to dental care?: No Was dental information given to patient?: No HPI [facility] 03/08 fell down 6 days go, lt leg pain HPI Details 75-year-old obese male with diabetes maggie litus, hypertension, GERD, hypercholesterolemia, recurrent major depression, asthma last seen 12/[address] Leal coming in for hospital discharge follow up. In review of the notes, patient was seen in [facility] ED 03/08/2025 after a follow up bed with subsequent lower extremity pain. X-ray and venous duplex did not reveal any abnormality and patient was discharged home. The patient fell from bed on March 02, resulting in neck pain. The fall occurred while the patient was asleep, and the impact was significant enough to wake him up. He visited the ER where x-rays and an ultrasound were performed, showing no acute findings. The patient experiences leg swelling, particularly at night, and pain that extends to the toes. The swelling is noted to be more pronounced by nighttime. He elevates his legs every night and during naps to manage the swelling. The patient reports that the pain has slightly improved but persists, especially in the leg and toes.The patient has been using meloxicam for pain management, which has not provided significant relief. He has not used Tylenol or heating pads but has been advised to try these along with meloxicam. An x-ray of the leg is planned to rule out any fractures not previously identified. [facility] Medical History Snoring Carpal tunnel syndrome Hypersomnia Nocturia Bladder wall thickening Incontinence Lower urinary tract symptoms Other peripheral vertigo, unspecified ear Insulin long-term use Testicular pain Stroke BERNARD positive BPH (benign prostatic hyperplasia) Brain tumor Hypercholesterolemia Vitamin D deficiency Obesity (BMI 30-39.9) Vitamin B12 deficiency GERD (gastroesophageal reflux disease) Grand mal seizure disorder Erectile dysfunction Osteoarthritis COPD (chronic obstructive pulmonary disease) RLS (restless legs syndrome) Pulmonary nodule Essential hypertension Diabetes mellitus with hyperglycemia Migraine Surgical History Hx of knee surgery History of esophagogastroduodenoscopy (EGD) History of prostate surgery Hx of colonoscopy History of elbow surgery Hx of foot surgery Hx of brain surgery History of partial gastrectomy History of right inguinal hernia repair Family History Father Diabetes Throat cancer Heart disease Mother Ovarian cancer Sister Dementia Brother Dementia Social History Household Members: Spouse Housing: House Are you a primary animal care supervisor to a significant other at home: No Do you presently have visiting nurse or other home services: No Alcohol intake: former Patient Tobacco Use Status: Never used Tobacco Tobacco use type: Cigarette e-Cigarette/Vaping Use: Never Used Second Hand Smoke Exposure: No Advance Directives Date on File: 06/13/21 service: No Current occupational status: retired Current occupation: rt handed Cognitive needs: No Hearing needs: No Vision needs: Yes Questionnaire Thrive Questionnaire Date Thrive assessed: 03/16/25 I am a: Patient What is your living situation today?: I have a steady place to live Within the past 12 months, did the food you bought not last and you didn't have the money to get more?: Sometimes True Within the past 12 months, did you worry whether your food would run out before you got money to buy more?: Often true Do you have trouble paying for medicines?: No Do you have trouble getting transportation to medical appointments?: No Do you have trouble paying your heating and electricity bill?: Yes Do you have trouble taking care of your child, family member or friend?: No Do you have trouble with day-to-day activities such as bathing, preparing meals, shopping, managing finances, etc.?: No Are you currently unemployed and looking for a job?: No Are you interested in more education?: No Currently or been in a relationship where the following occur: No concerns reported THRIVE Score: 3 LANA-7 AMB Questionnaire LANA-7 Date LANA - 7 assessed: 08/23/24 Source: Developed by Drs. Bonifacio Disla, Cristine Card, Orville Morley and colleagues, with an educational jackson from [employer]. Review of Systems Const Denies body aches, Denies chills, Denies fever(s) and Denies poor appetite Eyes Reports no additional complaints Card Denies chest pain, Denies edema and Denies dyspnea Resp Denies dyspnea Musc Reports as per HPI Psych Reports no additional complaints Physical exam (Primary Care) Vital Signs: Last Vital Signs Pulse 79 03/16/25 13:10 BP 98/50 L 03/16/25 13:10 Pulse Ox 98 03/16/25 13:10 Oxygen Delivery Method Room Air 03/16/25 13:10 BMI result Body Mass Index 27.5 Tobacco/Smoking Status: Tobacco use Status Tobacco use date assessed 03/16/25 03/16/25 13:18 Patient Tobacco Use Status Never used Tobacco 03/16/25 13:18 Tobacco use type Cigarette 03/16/25 13:18 e-Cigarette/Vaping Use Never Used 03/16/25 13:18 Thrive Assessment: Date of Thrive Assessment Date Thrive assessed 03/16/25 03/16/25 13:18 Currently or been in a relationship where the following occur: No concerns reported Const General: cooperative, healthy appearing, comfortable and no acute distress Orientation/consciousness: patient oriented x3 HENMT Head: Yes normocephalic Ears: hearing grossly normal bilaterally General nose exam: Normal external nose present Eyes General: appearance normal, both eyes and all related structures Conjunctivae: conjunctivae normal Resp Effort & Inspection: normal respiratory effort Cardio Rate: regular rate Neuro General: patient oriented x3 Gait exam (Neuro): Normal gait present Extrem Other: Swelling of the left ankle and foot without overlying erythema, skin changes, warmth. Tenderness to palpation over anterior aspect of the lower extremity with mild swelling. Intact strength, sensation, pulses in bilateral lower extremities. No calf tenderness, redness, warmth or swelling General: Yes normal to inspection, Yes full ROM and No edema Psych Affect: normal affect Attitude: cooperative Insight: Good insight present (Psych) Judgement: Good judgement present (Psych) Coding Level of Care Code Est Pt Level 3 (04593) Diagnoses Pain of left lower extremity M79.605 Assessment & Plan Assessment & Plan (1) Pain of left lower extremity: Code(s): M79.605 - Pain in left leg Category: Medical Plan: The patient will continue using meloxicam for pain management, and it is recommended to incorporate Tylenol and heating pads to alleviate symptoms. An x- ray of the leg will be conducted to rule out any fractures not previously identified, focusing on the long bones that were not initially imaged. If pain persists and the x-ray does not reveal any fractures, a short course of tramadol may be considered for pain relief. The patient is advised to elevate the legs above the hip level, especially at night, to manage swelling. A referral to orthopedics will be provided if necessary, and the patient is encouraged to follow up if symptoms do not improve. Plan This note was constructed using voice recognition software. While every effort has been made to ensure accuracy and construction millwright, still areas may have been included sometimes these areas may affect the content or meeting of the given symptoms. Total time spent caring for the patient today was 20 minutes. This includes time spent before the visit reviewing the chart, time spent during the visit, and time spent after the visit and documentation. Patient was informed and verbally consented to the use of an ambient scribe for clinic note documentation during this visit. Orders: Orders XR tibia fibula LT 2V Today M79.605 - Pain in left leg Referrals Orthopedics Referral M79.605 - Pain in left leg Medications: Changed From tramadol 50 mg PO BID 30 days PRN 60 tabs 1RF pain M54.12 - Radiculopathy, cervical region To tramadol 50 mg PO BID PRN 14 tabs 0RF pain 7 days M54.12 - Radiculopathy, cervical region Discontinued cyclobenzaprine Discontinued Reason: Patient no longer taking 5 mg PO BEDTIME PRN 14 tabs 0RF muscle spasm
[2025-03-16 13:10] VITALS: BP 98/50; PULSE 79; O2SAT 98; BMI 27.5
== END 2025-03-16 13:48 | disposition home or self-care (01) ==
LOC: HO.HMCH 12:57
PROVIDERS: PCP Internal Medicine
DX: M79.605 Pain in left leg (principal)

== ENCOUNTER → 2025-03-16 13:52 | Outpatient (BNV) | payer OTHER, SELFPAY | PROVIDERS: PCP Internal Medicine; Visit Provider Radiology Diagnostic Radiology | DX: M79.605 Pain in left leg (principal) | CPT/HCPCS: 73590 ==

== ENCOUNTER → 2025-04-27 23:59 | Outpatient (BNV) | payer OTHER, SELFPAY | PROVIDERS: PCP Internal Medicine; Visit Provider Internal Medicine | DX: E11.00 Type 2 diabetes mellitus with hyperosmolarity without nonketotic hyperglycemic-hyperosmolar coma (NKHHC) (principal); G40.001 Localization-related (focal) (partial) idiopathic epilepsy and epileptic syndromes with seizures of localized onset, not intractable, with status epilepticus; F41.1 Generalized anxiety disorder | CPT/HCPCS: G0179 ==

== ENCOUNTER 2025-05-08 09:53 | Outpatient (REF) | payer OTHER, SELFPAY ==
--- NOTE | ~2025-05-08 | XR_ITS ---
EXAMINATION: XR LUMBOSACRAL SPINE CLINICAL INFORMATION: R10.9 - Unspecified abdominal pain COMPARISON: 05/02/2019 TECHNIQUE: Three views of the lumbosacral spine. FINDINGS: There are surgical changes in the right upper quadrant with clips and suture material visible. There are 5 nonrib-bearing lumbar segments. There is subtle convex right curvature of the lumbar spine. T12-L1: There is mild disc space narrowing L1-L2: There is mild disc space narrowing with anterior osteophytes L2-L3: There is mild disc space narrowing and anterior osteophytes with endplate degenerative changes. L3-L4: There is mild disc space narrowing and small anterior osteophytes. L4-L5: There is subtle anterolisthesis. There is mild to moderate disc space narrowing, slightly increased from the prior. There is facet sclerosis. There are anterior osteophytes, also increased since the prior. L5-S1: Unremarkable. XR/XR lumbar spine 2-3V IMPRESSION: Mild multilevel degenerative changes, slightly increased at L4-5 are compared to the prior. Electronically signed by: Abdi Knox MD 05/08/2025 11:40 AM EDT
--- NOTE | ~2025-05-08 | XR_ITS ---
EXAMINATION: XR RIBS 4 VIEWS BILATERAL WITH PA CHEST HISTORY: R10.9 - Unspecified abdominal pain COMPARISON: Comparison is made with the prior examination of the chest dated 08/08/2024. FINDINGS: A single PA view of the chest and 3 views of the bilateral ribs are submitted. The lungs are expanded and clear. There is no pleural effusion, pneumothorax, or pulmonary vascular congestion. The heart is normal in size. The bilateral ribs are intact. No fracture is seen. There is mild degenerative disc disease of the spine. XR/XR ribs BI min 4V w CXR1V IMPRESSION: No acute cardiopulmonary abnormality. No evidence of fracture of the bilateral ribs. Electronically signed by: Bonifacio Schaeffer MD 05/08/2025 11:36 AM EDT
== END 2025-05-08 09:54 | disposition home or self-care (01) ==
LOC: HO.XRAY 09:53
PROVIDERS: PCP Internal Medicine; Visit Provider Internal Medicine
DX: E11.65 Type 2 diabetes mellitus with hyperglycemia (principal); I10 Essential (primary) hypertension; K21.9 Gastro-esophageal reflux disease without esophagitis; M17.12 Unilateral primary osteoarthritis, left knee; J45.909 Unspecified asthma, uncomplicated; G56.03 Carpal tunnel syndrome, bilateral upper limbs; R10.9 Unspecified abdominal pain; F33.9 Major depressive disorder, recurrent, unspecified; Z79.4 Long term (current) use of insulin
CPT/HCPCS: 71111; 72100; 83036; 99212

== ENCOUNTER 2025-05-08 09:53 | Outpatient (AMB) | payer OTHER, SELFPAY ==
--- OUTSIDE RECORDS SUMMARY | 2024-07-19 10:20 | XMS_ITS ---
Author Organization [facility] Address [address] [place] [phone] Care Team Providers Care Foundry Metallurgist Name Role Phone Den Leal MD Primary Care Provider [place] Damon [phone] REASON FOR VISIT Patient presents today for a recall colonoscopy Encounters Encounter Location Date Provider Diagnosis [facility] [address] [place] [phone] 07/19/2024 Bonif[place] Camejo Plan Of Treatment No Information Progress Notes * BILL PRITCHETTDOB: 2 (75 yo M)Acc No.[id number]:07/19/2024 Progress Notes Patient: BILL GILBERT Provider: Dante Camejo MD :1950 A ge:74 Y S ex:Male Date:07/19/2024 Address:[address] [place], [place] [id number] Pcp:Den Leal MD Subjective: * Chief Complaints: [...] Pending * Provider: Dante Camejo MD Date: 1 09/19/2023 Generated for Mukund ceballos/Bryan/Mcitting on: 0 05/08/2025 10:51 AM EDT
--- OUTSIDE RECORDS SUMMARY | 2024-12-12 09:20 | XMS_ITS ---
Author Organization [facility] Address [address] [place] [phone] Care Team Providers Care Vice President Global Digital Marketing Name Role Phone Den Leal MD Primary Care Provider Bonifacio Damon [phone] REASON FOR VISIT screening,hx polyps,dysphagia Encounters Encounter Location Date Provider Diagnosis [facility] [address] [place], [place] [phone] 12/12/2024 Bonifacio Camejo Plan Of Treatment No Information Progress Notes * BILL PRITCHETTDOB: 2 (75 yo M)Acc No.[id number]:12/12/2024 EGD and COL/MAC Patient: BILL GILBERT Provider: Dante Camejo MD :1950 A ge:74 Y S ex:Male Date:12/12/2024 Address:[address] [place], [place] [phone] Pcp:Den Leal MD Subjective: * Chief Complaints: [...] 0 12/12/2024 Generated for Mukund ceballos/Bryan/eTfanyitting on: 0 05/08/2025 10:52 AM EDT
--- OUTSIDE RECORDS SUMMARY | 2025-02-15 06:40 | XMS_ITS ---
Author Organization [facility] Address [address] [place] [address] Care Team Providers Care Custom Shop Worker Name Role Phone Den Leal MD Primary Care Provider Bonifacio Damon [phone] REASON FOR VISIT screening,hx polyps,dysphagia Encounters Encounter Location Date Provider Diagnosis [facility] [address] [place], [place] [phone] 02/15/2025 Bonifacio Camejo Plan Of Treatment No Information Progress Notes * BILL PRITCHETTDOB: 2 (75 yo M)Acc No.[id number]:02/15/2025 EGD and COL/MAC Patient: BILL GILBERT Provider: Dante Camejo MD :1950 A ge:75 Y S ex:Male Date:02/15/2025 Address:[address] [place], [place] [phone] Pcp:Den Leal MD Subjective: * Chief Complaints: [...] MD Date: 0 02/15/2025 Generated for Mukund ceballos/Bryan/eTfanyitting on: 0 05/08/2025 10:51 AM EDT
--- NOTE | 2025-05-08 10:13 | A.OFFPC_ITS ---
Vital Signs 05/08/25 10:14 Height 5 ft 4 in Weight 166 lb BMI 28.5 BP 138/62 Blood Pressure Location Lt brachial Position Sitting Pulse 72 Pulse Source Pulse Oximeter Pulse Oximetry (%) 98 Oxygen Delivery Method Room Air Intake Visit Reasons: 3 month f/u Allergies aspirin (ASPIRIN) Allergy (Intermediate, Verified 05/08/25 10:19) RASH WITH HIGH DOSES butalbital (BUTALBITAL) Allergy (Intermediate, Verified 05/08/25 10:19) HIVES ibuprofen Allergy (Intermediate, Verified 05/08/25 10:19) Hives Penicillins Allergy (Intermediate, Verified 05/08/25 10:19) HIVES phenytoin (From Dilantin) Allergy (Mild, Verified 05/08/25 10:19) BURNING SENSATION IN BODY fexofenadine (From [place]) Allergy (Unknown, Verified 05/08/25 10:19) Unknown thimerosal (THIMEROSAL) Allergy (Unknown, Verified 05/08/25 10:19) UNKNOWN doxycycline Adverse Reaction (Intermediate, Verified 05/08/25 10:19) penile rash Medication List - Last Reconciled 05/08/25 by Den Leal MD acetaminophen 650 mg PO Q6H PRN [adult pull ups As directed] albuterol sulfate 90 mcg/actuation (Ventolin HFA) 2 puffs PO Q4-6H PRN amitriptyline 50 mg (2 x 25 mg) PO BEDTIME aspirin 81 mg PO DAILY atorvastatin 40 mg PO BEDTIME [bed rails As directed] blood-glucose sensor ([employer] [place] G7 Sensor device) As directed blood-glucose,cotton cleaner,cont (Dexcom G7 Roll Shop Supervisor) As directed cholecalciferol (vitamin D3) 2,000 units PO DAILY empagliflozin (Jardiance) 10 mg PO DAILY fluticasone furoate-vilanterol 200-25 mcg/dose (Breo Ellipta) 1 inh inhalation DAILY FreeStyle Precision Mike Strips (blood sugar diagnostic) Once daily as needed to check blood glucose when CGM reads high or low NS gabapentin 300 mg PO BID [Grab bars for bathroom As directed] [hand held shower As directed] hydrocortisone acetate (Anusol-HC) 25 mg MO BID insulin glargine (Lantus Solostar U-100 Insulin) 10 units (0.1 mL) subcut DAILY lancets (OneTouch UltraSoft 2 Lancet) DAILY levetiracetam 500 mg PO Q12H lisinopril 2.5 mg PO DAILY 90 days meclizine 25 mg PO TID PRN metformin 1,000 mg PO BID 90 days montelukast (Singulair) 10 mg PO BEDTIME 90 days nebulizer accessories As directed nebulizers (Compact Compressor Nebulizer) As directed omeprazole 20 mg PO DAILY 90 days pen needle, diabetic As directed Inject LAntus 10 u QD [quad cane As directed] semaglutide (Ozempic) 2 mg (0.75 mL) subcut QWEEK sertraline 100 mg PO DAILY [shower chair As directed] [shower bench with back As directed] tramadol 50 mg PO BID PRN 7 days Tobacco use date assessed: 03/16/25 Fall risk assessment: No Falls in past year Last assessed Fall Risk: 05/08/25 Dental Screening Dental Screen Date: 03/16/25 HPI 3 month f/u HPI Details car fell on him while he was fixing , this happened 2 days ago and complains of abdomial pain and rib pain PFSH Medical History (Updated 05/08/25 @ 10:47 by Den Leal MD) Abdominal pain Snoring Carpal tunnel syndrome Hypersomnia Nocturia Bladder wall thickening Incontinence Lower urinary tract symptoms Other peripheral vertigo, unspecified ear Insulin long-term use Testicular pain Stroke BERNARD positive BPH (benign prostatic hyperplasia) Brain tumor Hypercholesterolemia Vitamin D deficiency Obesity (BMI 30-39.9) Vitamin B12 deficiency GERD (gastroesophageal reflux disease) Grand mal seizure disorder Erectile dysfunction Osteoarthritis COPD (chronic obstructive pulmonary disease) RLS (restless legs syndrome) Pulmonary nodule Essential hypertension Diabetes mellitus with hyperglycemia Migraine Surgical History Hx of knee surgery History of esophagogastroduodenoscopy (EGD) History of prostate surgery Hx of colonoscopy History of elbow surgery Hx of foot surgery Hx of brain surgery History of partial gastrectomy History of right inguinal hernia repair Family History Father Diabetes Throat cancer Heart disease Mother Ovarian cancer Sister Dementia Brother Dementia Social History Household Members: Spouse Housing: House Are you a primary animal care assistant to a significant other at home: No Do you presently have visiting nurse or other home services: No Alcohol intake: former Patient Tobacco Use Status: Never used Tobacco Tobacco use type: Cigarette e-Cigarette/Vaping Use: Never Used Second Hand Smoke Exposure: No Advance Directives Date on File: 06/13/21 service: No Current occupational status: retired Current occupation: rt handed Cognitive needs: No Hearing needs: No Vision needs: Yes Questionnaire Thrive Questionnaire Date Thrive assessed: 12/19/24 I am a: Patient What is your living situation today?: I have a steady place to live Within the past 12 months, did the food you bought not last and you didn't have the money to get more?: Sometimes True Within the past 12 months, did you worry whether your food would run out before you got money to buy more?: Often true Do you have trouble paying for medicines?: No Do you have trouble getting transportation to medical appointments?: No Do you have trouble paying your heating and electricity bill?: Yes Do you have trouble taking care of your child, family member or friend?: No Do you have trouble with day-to-day activities such as bathing, preparing meals, shopping, managing finances, etc.?: No Are you currently unemployed and looking for a job?: No Are you interested in more education?: No Currently or been in a relationship where the following occur: No concerns reported THRIVE Score: 3 LANA-7 AMB Questionnaire LANA-7 Date LANA - 7 assessed: 08/23/24 Source: Developed by Drs. Bonifacio Disla, Cristine Card, Orville Morley and colleagues, with an educational jackson from [place]. Physical exam (Primary Care) Vital Signs: Last Vital Signs Pulse 72 05/08/25 10:14 BP 138/62 05/08/25 10:14 Pulse Ox 98 05/08/25 10:14 Oxygen Delivery Method Room Air 05/08/25 10:14 BMI result Body Mass Index 28.5 Tobacco/Smoking Status: Tobacco use Status Tobacco use date assessed 03/16/25 05/08/25 10:14 Patient Tobacco Use Status Never used Tobacco 05/08/25 10:14 Tobacco use type Cigarette 05/08/25 10:14 e-Cigarette/Vaping Use Never Used 05/08/25 10:14 Thrive Assessment: Date of Thrive Assessment Date Thrive assessed 12/19/24 05/08/25 10:14 Currently or been in a relationship where the following occur: No concerns reported Const General: alert; No acute distress Eyes Conjunctivae: conjunctivae normal Resp Auscultation: clear to auscultation bilaterally Cardio Rate: regular rate Rhythm: regular rhythm GI Inspection: Yes normal to inspection Extrem General: Yes normal to inspection and No edema Results AMB Hemoglobin A1c AMB Hemoglobin A1c 6.5 % Last Edit by [place] CMA on 05/08/25 10 :40 Results Reviewed Results Reviewed: Laboratory Last Values Hgb A1c (Clinic) 6.5 % (4.0-6.0) H 05/08/25 10:19 Coding Level of Care Code Est Pt Level 4 (08629) Complex EM visit Add On G2211 Diagnoses Type 2 diabetes mellitus with hyperglycemia, with long-term current use of insulin E11.65; Z79.4 Diabetes mellitus termite technician insulin use: with termite technician use Diabetes mellitus type: type 2 Essential hypertension I10 GERD (gastroesophageal reflux disease) K21.9 Osteoarthritis of left knee M17.12 Carpal tunnel syndrome on both sides G56.03 Asthma J45.909 Recurrent major depression F33.9 Abdominal pain R10.9 Assessment & Plan Assessment & Plan (1) Diabetes mellitus with hyperglycemia: Comment[facility] Code(s): E11.65 - Type 2 diabetes mellitus with hyperglycemia Category: Medical Qualifiers: Diabetes mellitus chcf insulin use: with chcf use Diabetes mellitus type: type 2 Qualified Code(s): E11.65 - Type 2 diabetes mellitus with hyperglycemia; Z79.4 - intermediate accountant (current) use of insulin Plan: Decrease the amount of carbohydrate intake, pasta, bread, rice and potatoes are all sugar and that is aside from all the sweet stuff, remember that fruits are good but they are Sweet also. Hemoglobin A1c goal of less than 7.0. Patient is on Jardiance at 10 mg once a day Lantus 10 units once a day metformin a 1000 mg twice a day Ozempic 2 mg once a week (2) Essential hypertension: Code(s): I10 - Essential (primary) hypertension Category: Medical Plan: Continue with blood pressure medication. Decrease salt intake and exercise patient is on lisinopril 2.5 mg once a day (3) GERD (gastroesophageal reflux disease): Code(s): K21.9 - Gastro-esophageal reflux disease without esophagitis Category: Medical Plan: Avoid the foods that causes that usually spicy foods, tomato products, juices, coffee, soda and foods that your sensitive to. After eating do not lie down, allow 3-4 hours before in lie down. And keep the head of bed above 30 degrees to avoid the acid from going up. (4) Osteoarthritis of left knee: Code(s): M17.12 - Unilateral primary osteoarthritis, left knee Category: Medical Plan: Discussed with the patient that with the osteoarthritis in the left knee discussion about progression of this and keeping active losing weight (5) Carpal tunnel syndrome on both sides: Comment: 08/29/2024Moderately severe bilateral median neuropathy across carpal tunnel. 2. 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 Code(s): G56.03 - Carpal tunnel syndrome, bilateral upper limbs Category: Medical Plan: Dr. Em who has recommended to get the blood sugars under better control before they can do any procedure. And stop having steroid injections. (6) Asthma: Code(s): J45.909 - Unspecified asthma, uncomplicated Category: Medical Plan: Continue with albuterol inhaler as needed and on Breo once a day (7) Recurrent major depression: Comment: suicidal ideation 05/2012, Counselling Q 2 weeks Code(s): F33.9 - Major depressive disorder, recurrent, unspecified Category: Medical Plan: Continue with counseling and therapy (8) Abdominal pain: Comment: trauma 04/2025 car fell on him Code(s): R10.9 - Unspecified abdominal pain Category: Medical Plan History of Present Illness The patient is a 75-year-old male presenting for follow-up of left leg pain and management of chronic conditions. The patient has a history of diabetes mellitus, hypertension, gastroesophageal reflux disease, and hypercholesterolemia. He was last seen in March and has been experiencing left leg pain, for which he was prescribed meloxicam. An x-ray of the left leg showed no acute findings, and the patient had a fall from bed on March 02, leading to neck pain. The patient has a history of chronic anemia and depression, as well as a cerebrovascular accident. He also has a history of asthma and seizures, which are being managed. In February, the patient was seen by orthopedics for right knee pain and was diagnosed with bilateral knee osteoarthritis and a right knee medial meniscus tear. He was treated with anti-inflammatory medication and advised to manage his blood sugar levels better before any surgical intervention. The patient underwent a colonoscopy in February, which revealed a hiatal hernia and esophageal stricture, leading to balloon dilatation. The colonoscopy was limited due to poor preparation, and the patient was advised to start omeprazole and reschedule the procedure. The patient has been advised to stop steroid injections for carpal tunnel syndrome and to improve glycemic control. Health Maintenance - Colonoscopy in February 2025, limited due to poor preparation, advised to reschedule - Advised to start omeprazole for GERD management - Advised to improve glycemic control Social History Review of Systems - Musculoskeletal: Reports left leg pain, neck pain Physical Exam Results - X-ray of left leg: No acute findings - Colonoscopy: Hiatal hernia, esophageal stricture with balloon dilatation, limited due to poor preparation Plan Patient was informed and verbally consented to the use of an ambient scribe for clinic note documentation during this visit. 1. Diabetes Mellitus The patient is advised to achieve a hemoglobin A1c goal of less than 7.0%. Current medications include Jardiance 10 mg once daily, Lantus 10 units once daily, Metformin 1000 mg twice daily, and Ozempic 2 mg once weekly. 2. Hypertension The patient is on Lisinopril 2.5 mg once daily for blood pressure management. 3. Gastroesophageal Reflux Disease (Gerd) The patient is advised to start on Omeprazole for GERD management. 4. Osteoarthritis The patient is advised to keep active and lose weight to manage osteoarthritis progression. Orthopedic consultation recommended better glycemic control before any surgical intervention. 5. Carpal Tunnel Syndrome The patient is advised to stop steroid injections in the wrist. Discussion Notes During the visit, we discussed the management of diabetes mellitus with a target hemoglobin A1c of less than 7.0%. The patient is currently on Jardiance, Lantus, Metformin, and Ozempic. For hypertension, the patient is taking Lisinopril. We also discussed starting Omeprazole for GERD management and the importance of weight management and activity for osteoarthritis. The patient was advised to stop steroid injections for carpal tunnel syndrome and to improve glycemic control before any orthopedic procedures. Patient Instructions - Take Jardiance, Lantus, Metformin, and Ozempic as prescribed. - Start Omeprazole for GERD management. - Maintain an active lifestyle and work on weight loss to help manage osteoarthritis. - Stop steroid injections for carpal tunnel syndrome. - Work on improving blood sugar control before any orthopedic procedures. Orders: Orders US abdomen complete Today R10.9 - Unspecified abdominal pain, R79.89 - Other specified abnormal findings of blood chemistry XR lumbar spine 2-3V Today R10.9 - Unspecified abdominal pain AMB Hemoglobin A1c Today Z13.9 - Encounter for screening, unspecified XR ribs BI min 4V w CXR1V Today R10.9 - Unspecified abdominal pain Medications: New blood-glucose,cotton cleaner,cont (Dexcom G7 Roll Shop Supervisor) As directed 1 ea 0RF E11.65 - Type 2 diabetes mellitus with hyperglycemia, Z79.4 - intermediate accountant (current) use of insulin blood-glucose sensor (Dexcom G7 Sensor device) As directed 6 ea 3RF E11.65 - Type 2 diabetes mellitus with hyperglycemia, Z79.4 - intermediate accountant (current) use of insulin Discontinued FreeStyle Scott 3 Sensor (blood-glucose sensor) Discontinued Reason: Insurance Denied As directed change every 14 days 9 ea 5RF NS E11.65 - Type 2 diabetes mellitus with hyperglycemia, Z79.4 - intermediate accountant (current) use of insulin FreeStyle Scott 3 Mcintosh (blood-glucose,cotton cleaner,cont) Discontinued Reason: Insurance Denied As directed 1 ea 0RF NS E11.65 - Type 2 diabetes mellitus with hyperglycemia, Z79.4 - intermediate accountant (current) use of insulin
[2025-05-08 10:14] VITALS: BP 138/62; PULSE 72; O2SAT 98; BMI 28.5
--- OUTSIDE RECORDS SUMMARY | 2025-05-08 10:52 | XMS_ITS | Clinical Summary ---
Author Organization [facility] Address [address] [place] [address] Phone Care Team Providers Care Thermal Technician Name Role Phone Den Leal MD Primary Care Provider [phone] Allergies Active Allergy Reactions Criticality Noted Date Comments Fexofenadine Rash 03/13/2025 Phenytoin Sodium Extended 10/24/2024 Medications amitriptyline (ELAVIL) [...] test strip 5 Active FreeStyle Scott 3 Filer misc See administration instructions. 4 Active FreeStyle [...] as needed for muscle spasms. 5 Active DULoxetine (CYMBALTA) [address] capsule [...] at bedtime for 30 days 5 Active Active Problems Problem Noted Date Diagnosed Date Diabetes mellitus ([facility] V24, [facility] V28) Epilepsy ([facility] V24, [facility] V28) 12/28/2024 Obstructive sleep apnea syndrome 12/28/2024 Cubital tunnel syndrome of both upper extremitie s 12/28/2024 Carpal tunnel syndrome on left 12/28/2024 Cubital tunnel syndrome on left 12/28/2024 Encounters Date Type Department Care Team Description 03/13/2025 [facility] [address] [phone] Kaila Em MD 03/08/2025 [facility] [address] [phone] Kaila Em MD from Last 3 Months Surgical History Surgery Date Site/Laterality Comments CARPAL TUNNEL RELEASE Right ELBOW SURGERY Bilateral ulnar nerve decompression? Medical History Medical History Date Comments Sleep apnea Diabetes mellitus ([facility] V24, [facility] V28) Seizures ([facility] V24, [facility] V28) epilepsy Depression Hx of headache Social History Tobacco Use Types Packs/Day Years Used Date Smoking Tobacco: Never Assessed Sex and Gender Information Value Date Recorded Sex Assigned at Not on file Legal Sex Male 10:25 AM EST Gender Identity Not on file Sexual Orientation Not on file Obstetrics History Last Filed Vital Signs Vital Sign Reading Time Taken Comments Blood Pressure - - Pulse - - Temperature - - Respiratory Rate - - Oxygen Saturation - - Inhaled Oxygen Concentration - - Weight 79.4 kg (175 lb) 12/27/2024 10:20 AM EDT Height 162.6 cm (5' 4 ) 12/27/2024 10:20 AM EDT Body Mass Index 30.04 12/27/2024 10:20 AM EDT Plan of Treatment Health Maintenance Due Date Last Done Comments Colorectal Cancer Screening: Colonoscopy 1950 Diabetes: Annual GFR (Glomerular Filtration Rate) 1952 Diabetes: Annual Foot Exam 01/07/1962 Diabetes: Annual Retina Eye Exam 01/07/1962 Abdominal Aortic Aneurysm (AAA) Screen 07/20/2022 Cholesterol Screening (Lipid Panel) 07/20/2022 Falls Risk Assessment 07/20/2022 Hepatitis C Screening 07/20/2022 Medicare Annual Wellness Visit 07/20/2022 Social Influencers of Health Screening 07/20/2022 Depression Screening 08/10/2024 Zoster Vaccines (3 of 3) 08/18/2024 06/23/2024, 05/10 Diabetes: Annual Urine Albumin-Creatinine Ratio (uACR) 10/25/2024 Diabetes: Blood Sugar Control Test (HGBA1C) 10/25/2024 COVID-19 Vaccine ( season) 2025 04/12/2024, 04/24/2022, 05/20/2021, Additional history exists Influenza Vaccine (#1) 2025 , 06/25/2023, 08/22/2021, Additional history exists DTaP,Tdap,and Td Vaccines (2 - Td or Tdap) 06/11/2025 06/11/2015 Pneumococcal Vaccine: 50+ Years Completed 11/22/2021, 05/27/2018, 08/08/2016, Additional history exists RSV Immunization Adult Patients [...] patient's age to complete this topic Insurance [employer] Member Subscriber Plan / Payer (Ef fective 2024-Present) Name:GEOVANNY KHOURY Relation to Subscriber:Self Name:KhouryGeovanny Payer ID:[id number] Group ID:[id number] Type:Not on file Address: [address] [place] [phone] Care Teams Thermal Technician Relationship Specialty Start Date End Date Den Leal MD [address] [place] [address] [address] [facility] [place] [address] PCP - General Internal Medicine 09/10/11
--- OUTSIDE RECORDS SUMMARY | 2025-05-08 10:52 | XMS_ITS | Continuity of Care Document ---
Author Name [facility], Medical Address [address] [place] [address] Organization Unknown Address [address] [place] [address] Medications No known medications Problems No known problems
--- OUTSIDE RECORDS SUMMARY | 2025-05-08 10:52 | XMS_ITS | Patient Health Record ---
Author Organization [facility] Address [address] [place] [address] Care Team Providers Care Rope Coiling Machine Operator Name Role Phone Po Den CARLIN Primary Care Provider Bonifacio Damon [phone] Allergies Allergen (clinical drug ingredient) Drug/Non Drug Allergy documented on EMR Reaction Allergy Type Onset Date Status acetaminophen / oxycodone Percocet hives Drug Allergy Active Motrin Unknown Drug Allergy Active phenytoin Dilantin Unknown Drug Allergy Active [place] hives Drug Allergy Active Penicillin itchyness/hives Drug Allergy Active Thimerosal Unknown Drug Allergy Active Results Component Value Reference Range Notes Glucose, Whole Blood Reviewed date:02/16/2025 11:51:40 PM Interpretation: Performing Lab:[address] [id number] Notes/Report: Glucose, Whole Blood 86 60-115 mg/dL METER # : [id number] Glucose, Whole Blood Reviewed date:02/16/2025 11:50:30 PM Interpretation: Performing Lab:[facility], [address] [place] [id number] Notes/Report: Glucose, Whole Blood 73 60-115 mg/dL METER # : [id number] Reason For Referral No Information Medications Medication [...] Problem Status W/U Status Risk Notes Problem [id number] Encounter for screening for malignant neoplasm of colon (Z12.11) Active confirmed Problem 914000957 History of adenomatous polyp of colon (Z86.010) Active confirmed Problem History of polyp of colon (situation) (022114459) Personal history of colonic polyps (Z86.010) Active confirmed Problem 907297713 Generalized abdominal pain (R10.84) Active confirmed Problem Dysphagia (62335961) Dysphagia (R13.10) Active confirmed Problem 221609993 Elevated liver function tests (R79.89) Active confirmed Problem 072100331 Elevated liver enzymes (R74.8) Active confirmed Problem 54176842 Constipation, unspecified constipation type (K59.00) Active confirmed Problem 111273037 Positive BERNARD (antinuclear antibody) (R76.8) Active confirmed Problem 242359824 BERNARD positive (R76.8) Active confirmed Vital Signs Blood pressure diastolic 11 mm Hg 11/04/2024 Height 67 in 11/04/2024 Blood pressure systolic 111 mm Hg 11/04/2024 Weight 181 lbs 11/04/2024 BMI 28.35 kg/m2 11/04/2024 Procedures Procedure Date Ordered Date Performed Result Body Sit e UPPER GI ENDOSCOPY BALLOOON DILATION OF ESOPH 11/04/2024 N/A COLONOSCOPY 11/04/2024 N/A Encounters Encounter Location Date Provider Diagnosis [facility] Outpatient [address] [place], [place] [phone] 02/15/2025 Bonifacio Camejo [facility] [address] [place] [phone] 11/04/2024 Bonifacio Camejo Colon cancer screening Z12.11 ; Dysphagia R13.10 and Personal history of colonic polyps Z86.010 [facility] [address] [place] [phone] 02/20/2025 Bonifacio Camejo [facility] [address] [place] [phone] 11/04/2024 Bonifacio Camejo [facility] [address] [place] [phone] 02/13/2025 Bonifacio Camejo Assessments Encounter Date Diagnosis (ICD [...] Test Test Name Order Date COLONOSCOPY 09/09/2018 Insurance Providers Payer Name Payer Address Payer Phone Subscriber Number Group Number Insured Name Patient Relationship to Insured Coverage Start Date Coverage End Date [facility] [address] Attn Claims [place] [id number] GEOVANNY PRITCHETT Self - patient is the insured MEDICAID OF [employer] [address] [place] [address] [id number] GEOVANNY PRITCHETT Self - patient is the insured Medical (General) History Medical History History ICD Code Colonoscopy 06-02-2008 small tubular a denoma removed He had [...]
== END 2025-05-08 10:53 | disposition home or self-care (01) ==
LOC: HO.HMCH 09:53
PROVIDERS: PCP Internal Medicine; Visit Provider Internal Medicine
DX: E11.65 Type 2 diabetes mellitus with hyperglycemia (principal); Z79.4 Long term (current) use of insulin; I10 Essential (primary) hypertension; K21.9 Gastro-esophageal reflux disease without esophagitis; M17.12 Unilateral primary osteoarthritis, left knee; G56.03 Carpal tunnel syndrome, bilateral upper limbs; J45.909 Unspecified asthma, uncomplicated; F33.9 Major depressive disorder, recurrent, unspecified; R10.9 Unspecified abdominal pain; Z13.9 Encounter for screening, unspecified

== ENCOUNTER → 2025-05-08 11:07 | Outpatient (BNV) | payer OTHER, SELFPAY | PROVIDERS: PCP Internal Medicine; Visit Provider Radiology Diagnostic Radiology | DX: R07.89 Other chest pain (principal); M51.360 Other intervertebral disc degeneration, lumbar region with discogenic back pain only | CPT/HCPCS: 71111; 72100 ==

== ENCOUNTER 2025-05-31 07:49 | Outpatient (REF) | payer OTHER, SELFPAY ==
--- OUTSIDE RECORDS SUMMARY | 2024-07-19 10:20 | XMS_ITS ---
Author Organization [facility] Address [address] [place] [id number] Care Team Providers Care Meat Press Operator Name Role Phone Den Leal MD Primary Care Provider Bonif[place] Damon [phone] REASON FOR VISIT Patient presents today for a recall colonoscopy Encounters Encounter Location Date Provider Diagnosis [facility] [address] [place] [phone] 07/19/2024 Bonifacio Camejo Plan Of Treatment No Information Progress Notes * BILL PRITCHETTDOB: 2 (75 yo M)Acc No.[id number]:07/19/2024 Progress Notes Patient: BILL GILBERT Provider: Dante Camejo MD :1950 A ge:74 Y S ex:Male Date:07/19/2024 Address:[address] [place], [place] [id number] Pcp:Den Leal MD Subjective: * Chief Complaints: * 1 . Patient presents today for a recall colonoscopy. * Medical History: Objective: * Vitals: Assessment: Plan: * Treatment: * * The named appointment provid er may or may not be the originator of this progress note, and it is not deemed complete until electronically signed by the appointment provider. Sign off status: Pending * Provider: Dante Camejo MD Date: 09/19/2023 Generated for Mukund ceballos/Bryan/Mcitting on: 07:51 AM EDT
--- OUTSIDE RECORDS SUMMARY | 2024-12-12 09:20 | XMS_ITS ---
Author Organization [facility] Address [address] [place] [address] Care Team Providers Care Auditor Tax Name Role Phone Den Leal MD Primary Care Provider Bonifacio Damon [phone] REASON FOR VISIT screening,hx polyps,dysphagia Encounters Encounter Location Date Provider Diagnosis [facility] Out[facility] [address], [place] [phone] 12/12/2024 Bonifacio Camejo Plan Of Treatment No Information Progress Notes * BILL PRITCHETTDOB: 2 (75 yo M)Acc No.[id number]:12/12/2024 EGD and COL/MAC Patient: BILL GILBERT Provider: Dante Camejo MD :1950 A ge:74 Y S ex:Male Date:12/12/2024 Address:[address] [place], [place] [phone] Pcp:Den Leal MD Subjective: * Chief Complaints: * 1 . Screening,hx polyps,dysphagia. * Medical History: Objective: * Vitals: Assessment: Plan: * Treatment: * * The named appointment provid er may or may not be the originator of this progress note, and it is not deemed complete until electronically signed by the appointment provider. Sign off status: Pending * Provider: Dante Camejo MD Date: 0 12/12/2024 Generated for Mukund ceballos/Bryan/eTfanyitting on: 1 07:52 AM EDT
--- OUTSIDE RECORDS SUMMARY | 2025-02-15 06:40 | XMS_ITS ---
Author Organization [facility] Address [address] [place] [address] Care Team Providers Care Train Crew Member Name Role Phone Den Leal MD Primary Care Provider Bonifacio Damon [phone] REASON FOR VISIT screening,hx polyps,dysphagia Encounters Encounter Location Date Provider Diagnosis [facility] [address] [place], [place] [phone] 02/15/2025 Bonifacio Camejo Plan Of Treatment No Information Progress Notes * BILL PRITCHETTDOB: 2 (75 yo M)Acc No.[id number]:02/15/2025 EGD and COL/MAC Patient: BILL GILBERT Provider: Dante Camejo MD :1950 A ge:75 Y S ex:Male Date:02/15/2025 Address:[address] [place], [place] [phone] Pcp:Den Leal MD Subjective: * Chief Complaints: [...] * Provider: Dante Camejo MD Date: 0 02/15/2025 Generated for Mukund ceballos/Bryan/Mcitting on: 07:51 AM EDT
--- NOTE | ~2025-05-31 | US_ITS ---
CLINICAL HISTORY: R79.89 - Other specified abnormal findings of blood chemistry US abdomen complete with duplex and color Doppler Comparison: CT/REG/NY/SR - CT ABDOMEN PELVIS WO IV CON - 08/31/23 20:04 EST US/SR - US ABDOMEN - 06/12/23 09:40 EDT Findings: The visualized pancreas, aorta, and inferior vena cava are unremarkable. Liver normal size and echotexture. Right lobe 13.8 cm length. No focal hepatic masses. Common duct 3.6 mm diameter. Physiologic distention of the gallbladder. No gallstones or sludge. No gallbladder wall thickening. No pericholecystic fluid. No sonographic Elise sign. Main portal vein antegrade. Right kidney normal size, 10.0 cm in length. Normal cortical width and echotexture. No solid or cystic renal masses. No nephrolithiasis. No hydronephrosis. Left kidney normal, 9.8 cm in length. Normal cortical width and echotexture. No solid or cystic renal masses. No nephrolithiasis. No hydronephrosis. Spleen measures 9.3 cm. No splenic masses. No ascites. No lymphadenopathy. Impression: 1. Normal abdominal ultrasound. This document has been electronically signed by: Fredy Pyle MD on 06/01/2025 15:29:06
--- OUTSIDE RECORDS SUMMARY | 2025-05-31 07:52 | XMS_ITS | Clinical Summary ---
Author Organization [address] [facility] Address [address] [place] [address] Phone Care Team Providers Care Front Office Secretary Name Role Phone Den Leal MD Primary Care Provider [phone] Allergies Active Allergy Reactions Criticality Noted Date [...] test strip 5 Active FreeStyle Scott 3 [place] misc See administration instructions. 4 Active FreeStyle [...] Problem Noted Date Diagnosed Date Diabetes mellitus ([facility] V24, [facility] V28) Epilepsy ([facility] V24, [facility] V28) 12/28/2024 Obstructive sleep apnea syndrome 12/28/2024 Cubital tunnel syndrome of both upper extremitie s 12/28/2024 Carpal tunnel syndrome on left 12/28/2024 Cubital tunnel syndrome on left 12/28/2024 Encounters Date Type Department Care Team Description 03/13/2025 Okay Orthopedic Surgery [facility] [address] [address] Kaila Em MD 03/08/2025 Okay Orthopedic Surgery [facility] [address] [address] Kaila Em MD from Last 3 Months Surgical History Surgery Date Site/Laterality Comments CARPAL TUNNEL RELEASE Right ELBOW SURGERY Bilateral ulnar nerve decompression? Medical History Medical History Date Comments Sleep apnea Diabetes mellitus ([facility] V24, [facility] V28) Seizures ([facility] V24, [facility] V28) epilepsy Depression Hx of headache Social [...] 12/27/2024 10:20 AM EDT Plan of Treatment Upcoming Encounters Date Type Department Care Team (Late st Contact Info) Description 06/23/2025 11:30 AM EST Office Visit Orthopedic Surgery - [place] [address] [facility] [place] [address] Kaila Em MD [address] [place] [phone] Health Maintenance Due Date Last Done Comments [...] ID:[id number] Group ID:[id number] Type:Not on file Address: [place] [address] [address] [address] Care Teams Front Office Secretary Relationship Specialty Start Date End Date eDn Leal MD [address] [place] [address] [address] [facility] [place] [address] PCP - General Internal Medicine 09/10/11
--- OUTSIDE RECORDS SUMMARY | 2025-05-31 07:52 | XMS_ITS | Patient Health Record ---
Author Organization [facility] Address [address] [place] [address] Care Team Providers Care History Card Clerk Name Role Phone Po Den CARLIN Primary Care Provider Bonifacio Damon [phone] Allergies Allergen (clinical drug ingredient) Drug/Non Drug Allergy documented on EMR Reaction Allergy Type Onset Date Status Thimerosal Unknown Drug Allergy Active acetaminophen / oxycodone Percocet hives Drug Allergy Active Motrin Unknown Drug Allergy Active phenytoin Dilantin Unknown Drug Allergy Active [place] hives Drug Allergy Active Penicillin itchyness/hives Drug Allergy Active Results Component Value Reference Range Notes Glucose, Whole Blood Reviewed date:02/16/2025 11:51:40 PM Interpretation: Performing Lab:[address] [address] Notes/Report: Glucose, Whole Blood 86 60-115 mg/dL METER # : [id number] Glucose, Whole Blood Reviewed date:02/16/2025 11:50:30 PM Interpretation: Performing Lab:[facility], [address] [place] [phone] Notes/Report: Glucose, Whole Blood 73 60-115 mg/dL METER # : [id number] Reason For Referral No Information Medications Medication SIG (Take, Route, Frequency, Duration) Notes Start Date End Date Status metFORMIN HCl 1000 MG 1 tablet with a me al Orally twice a day Active Lantus SoloStar 100 UNIT/ML ADM 20 UNI SC QD Subcutaneous; Duration: 75 Active Breo Ellipta 200-25 MCG/INH INL 1 PUFF PO QD Inhalation; Duration: 90 Active Cyanocobalamin 1000 MCG 1 tablet Orally Once a day; Duration: 30 day(s) Active Dulcolax (colon prep) 5 MG take at 3:00 p.m and 7:00p.m. Orally two tablets twice a day for one day; Duration: 1 days 12/05/2024 Active Ibuprofen 600 MG 1 tablet with food o r milk as needed Orally Three times a day Not-Taking Divalproex Sodium ER 250 MG 1 tablet Orally Once a day; Duration: 30 day(s) Active Amitriptyline HCl 25 MG as directed Oral ly three times a day Active Levocetirizine Dihydrochloride 5 MG 1 tablet in the evening Orally Once a day; Duration: 30 day(s) Active Meclizine HCl 25 MG 1 tablet as needed Orally as needed 3 times a day Active Atorvastatin Calcium 40 MG Oral; Duration: 30 Days Acti ve levETIRAcetam 500mg 1 tablet Orally Twic e a day Active Ozempic (2 MG/DOSE) 8 MG/3ML Subcutaneous; Duration: 28 Days Active MiraLax (colon prep) 17 GM/SCOOP 1 238 Gm bottle mixed with Gatorade or Crystal Light orally begin at 5:00 p.m. the day before the procedure; Duration: 1 days 12/05/2024 Active ProAir HFA 108 (90 Base) MCG/ACT 1 puff as needed Inhalation every 4 hrs Active Insulin Glargine-yfgn 100 UNIT/ML INJECT 10 UNITS SUBCUTANEOUSLY DAILY Subcutaneous; Duration: 150 Days Active Aspirin 81 81 MG 1 tablet Orally Once a day; Duration: 30 day(s) Active Immunizations Vaccine Route Administration Date Status Comme nts Influenza Unknown 05/10/2018 Administered Influenza Unknown 04/10/2019 Administered Problems Problem Type SNOMED Code ICD Code Onset Dates Problem Status W/U Status Risk Notes Problem Screening for malignant neoplasm of colon (296198177) Encounter for screening for malignant neoplasm of colon (Z12.11) Active confirmed Problem History of adenomatous polyp of colon (113209850) History of adenomatous polyp of colon (Z86.010) Active confirmed Problem History of polyp of colon (situation) (927944999) Personal history of colonic polyps (Z86.010) Active confirmed Problem Generalized abdominal pain (428962618) Generalized abdominal pain (R10.84) Active confirmed Problem Dysphagia (05685840) Dysphagia (R13.10) Active confirmed Problem Elevated liver enzymes level (604143847) Elevated liver function tests (R79.89) Active confirmed Problem Elevated liver enzymes level (416338379) Elevated liver enzymes (R74.8) Active confirmed Problem Constipation (27811292) Constipation, unspecified constipation type (K59.00) Active confirmed Problem Raised antinuclear antibody (035433568) Positive BERNARD (antinuclear antibody) (R76.8) Active confirmed Problem Raised antinuclear antibody (948178304) BERNARD positive (R76.8) Active confirmed Vital Signs Blood pressure diastolic 11 mm Hg 11/04/2024 Height 67 in 11/04/2024 Blood pressure systolic 111 mm Hg 11/04/2024 Weight 181 lbs 11/04/2024 BMI 28.35 kg/m2 11/04/2024 Procedures Procedure Date Ordered Date Performed Result Body Sit e UPPER GI ENDOSCOPY BALLOOON DILATION OF ESOPH 11/04/2024 N/A COLONOSCOPY 11/04/2024 N/A Encounters Encounter Location Date Provider Diagnosis [facility] [address] [place] [id number] 02/15/2025 Bonifacio Camejo [facility] [address] [place] [phone] 11/04/2024 Bonifacio Camejo Colon cancer screening Z12.11 ; Dysphagia R13.10 and Personal history of colonic polyps Z86.010 [facility] [address] [place] [phone] 02/20/2025 Bonifacio Camejo [facility] [address] [place] [phone] 11/04/2024 Bonifacio Camejo [facility] [address] [place] [phone] 02/13/2025 Bonifacio Camejo Assessments Encounter Date Diagnosis [...] Insured Coverage Start Date Coverage End Date [facility] [address] Attn Claims [place] [id number] GEOVANNY PRITCHETT Self - patient is the insured MEDICA[employer] OF [employer] [address] [place] [phone] [id number] GEOVANNY PRITCHETT Self - patient is the insured Medical (General) History Medical History History ICD Code Colonoscopy [id number] small tubular a denoma removed He had a neg colonoscopy in 08/[address] Neri History of peptic ulcer disease-s/p B-II in NIDDM Denies CA,CVA,renal disease Neg EGD with Dr. Neri in [...]
--- OUTSIDE RECORDS SUMMARY | 2025-05-31 07:52 | XMS_ITS | Data Portability ---
Author Organization [facility] Address [address] [place] [phone] Care Team Providers Care Clinical Research Management Associate Name Role Phone HIM CCA OTHER Assessment Encounter Date Assessment Date Assessment LastModified by Organization Details LastModified Time 12/22/2023 12/22/2023 I have reviewed and agree with the assessment and plan as documented by the catering truck operator. I provided real time medical direction for this encounter and was immediately available to provide additional phone based assistance as needed. History as noted by catering truck operator. Pt with history of COPD, reports [...] worsening symptoms. [email or web address] Not available 12/22/2023 12:19:59 03/07/2025 03/07/2025 I provided real -time medical direction via phone for this encounter and was available for additional phone-based assistance as needed. I have reviewed and agree with the Assessment and Plan as documented by the Bin Piler. Patient given the opportunity to ask questions. Our service contacted for an assessment of: s/p fall with trauma LLE As per above, patient fell last week with trauma to LLE and now calls this service with pain, inability to ambulate on it. Per catering truck operator on the scene, ASS, AF. Please see uploaded pictures Please read the catering truck operator note for their exam findings. Impression: Fall with injury. R/o compartment syndrome Plan: Expect call to [facility] Allergies: Reviewed [email or web address] Not available 03/07/2025 20:25:46 Plan of Treatment Reminders Order Date Submit Date Provider Last Modified By Organization Details Last Modified Time Details Appointments None recorded. Lab rapid SARS CoV 2 Ag, QL IA, respiratory specimen 2023 [facility]24 [facility] [address] [place] [address], [address] [place] [address] 4 12:14:18 rapid flu (A+B) 2023 024 [facility] - [facility], [address] [place] [address], [address] [place] [address] 4 12:14:19 rapid strep group A, throat 2023 024 [facility] - [facility], [address] [place] [address], [address] [place] [address] 4 12:14:16 Referral None recorded. Procedures None recorded. Surgeries None recorded. Imaging None recorded. Medication Orders ketorolac 30 mg/mL (1 mL) injection solution 2023 024 [email or web address] Not available 11:53:48 Patient TargetsNo targets recorded. Patient InstructionsNo instructions recorded. Reason for Referral None Reported. Results Created Date Observation Date Name Description Value Unit Range Abnormal Flag Note LastModifiedBy Organization Detail LastModifiedTime 12/22/19 24 12/22/2023 rapid strep group A, throa t Strep negati ve Not Available Main - [facility] ed [address] [place] [address], [phone] 12/22/2023 12:13:37 12/22/19 24 12/22/2023 rapid flu (A+B) Flu negati ve Not Available Main - [facility] ed [address] [place] [address], [phone] 12/22/2023 12:13:32 12/22/19 24 12/22/2023 rapid SARS CoV 2 Ag, QL IA, respi rator y speci men rapid SARS CoV 2 Ag, QL IA, respiratory specimen negati ve Not Available [facility] ed [address] [place] [address], [phone] 12/22/2023 12:13:28 Result Notes None recorded. Medical Equipment None Reported. Allergies Allergen ID Allergen Name Allergen Category Reaction Reaction Severity Criticality Documentation Date Start Date Code Code System Note Provider Name and Address Organization Details Recorded Time 7005 Product containin g penicilli n (product) medicatio n Not available Not available Not available 06/07/2024 57311 8001 SNOMED Not Available [facility] - production [...] Body weight Respiratory rate Body temperature Systolic And Diastolic Provider Name and Address Organization Details Last Updated DateTime 4 98 % 98 % 152.4 cm 84 /min 85651.8 g 14 /min 98.4 [degF] 130/84 mm[Hg] Not Available [facility] - production 4 20:17:11 Date Recorded Oxygen saturation Oxygen saturation in Arterial blood by Pulse oximetry Heart rate Body temperature Respiratory rate Body weight Body height Systolic And Diastolic Provider Name and Address Organization Details Last Updated DateTime 4 98 % 98 % 78 /min 97.7 [degF] 18 /min 14505.5 6 g 162.56 cm 117/72 mm[Hg] Not Available [facility] [employer] - production 4 11:46:45 Date Recorded Respiratory rate Heart rate Body temperature Oxygen saturation Oxygen saturation in Arterial blood by Pulse oximetry Systolic And Diastolic Provider Name and Address Organization Details Last Updated DateTime 5 18 /min 95 /min 97.9 [degF] 99 % 99 % 146/77 mm[Hg] Not Available [facility] 5 20:20:18 Social History None recorded. Functional Status None recorded. Mental Status None recorded. Family History Nothing Reported. Medical History No medical history recorded. 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 Evaluation in the field was performed by my catering truck operator colleague, as noted above, I provided [...] care, considerch fariha in call this week. [id number] Nelson Younger MD Main - [facility] [address] [place] [phone] 12/22/2023 11:46:40 12/22/2023 15:15:53 Viral upper respiratory tract infection [id number] J06.9 [id number] Kristin Maria MD Main-[facility] ED Medical [address] [phone] 03/07/2025 20:20:11 03/08/2025 00:32:15 History of fall 885031027 Z91.81 9680090 Swelling o f lower limb 613128008 M79.89 208119 Health Concerns Section Related Observation LastModified by Organization Detai ls LastModified Time None Recorded Concern Status LastModified by Organization Details LastModified Time None Recorded Advance Directives Directive None Recorded Payers Insurance Date Sequence Insurance Name Policy Number Policy Tracy Covered Member ID Tracy Member ID Guarantor Name 03/07/2025 1 [facility] - DOS ON OR AFTER 2022 - DUAL ELIGIBLE - GROUP HOME OPTIONS AND ONE CARE (MEDICARE REPLACEMENT/ADV ANTAGE - HMO) Geovanny Khoury [id number] Geovanny Khoury Notes Date Note Type Note [...] ..................... ..................... ..................... ..................... ..................... ..................... ............... Bin Piler Note From David De La Torre: Pt [...] ml dark urine, clear, no sediment. At [facility] orders, troubleshooting the howe with flush and repositioning yields another 250ml urine in howe. [facility] orders BMP and UA. Values to [facility]. Pt offered at home treatment with fluid and antibiotics but requests transport to ED. Prashanth MCCLOUD transports to [facility]. ..................... ..................... ..................... ..................... ..................... ..................... ............... Disposition: Fulfilled Albert Mcclelland MD [address] [place] [address],[address], [place], [phone], [employer] [facility] [employer] 09/02/2023 09:35:41 12/22/2023 text/html ROS as noted in the HPI This was a supervised home visit with catering truck operator Bonnie Bishop. [facility] Nurse Triage Notes (Aaron Cuellar): Patient Reports: Lower extremity swelling; History of asthma, increased use of inhaler; COPD; Sputum increase ; Cough; Shortness of breath with exertion; Pain with inspirationDenies: Increased work of breathing/labored with or without fever Unable to speak in full sentences without distress Cough, fever greater than 2 days Chief Complaints: Weakness/Lethargy, Cough, Chest Pain, HeadachePMH: COPD/Asthma, Hypertension, DiabetesAllergies: PenicillinComments: Apartment Leasing Specialist verified the member's name//address and phone number. [...] for 3 days - Wellness check requested Bin Piler POC Test Results from Bonnie Bishop - ALS Rapid COVID antigen (1) [12:53] COVID: - Rapid influenza antigen (1) [12:53] Flu: - Rapid strep test (1) [12:53] Strep: - ..................... ..................... ..................... ..................... ..................... ..................... ............... Bin Piler Note From Bonnie Bishop: Sent to a call for a pt complaining of flu-like symptoms. SC8 arrives on scene, pt is alert and oriented, airway is patent. Pt's primary language is German. Family serves as regulatory affairs associate. Family states pt complains of flu-like symptoms [...] flu test: neg; Rapid strep test: neg; [facility] consulted and orders Toradol 30mg IM. Pt advised to use cough/cold medication, Tylenol 1gm TID, Albuterol inhaler to help with symptoms. Toradol 30mg IM administered without incident. Red flags discussed. Pt/family have no further questions. ..................... ..................... ..................... ..................... ..................... ..................... ............... Disposition: Fulfilled Nelson Younger MD [address] [facility],[address], [place], [address], [employer] [facility] [employer] 12/22/2023 13:07:31 03/07/2025 text/html [facility] Nurse Triage Notes (Deedee Nagel): Reason For Request: Patient fell out of the bed, and now has leg and foot pain. This happened 4 days ago, but still has foot and leg pain. Patient Reports: Weakness with fall, able to move all extremities Denies: Falls with head strike and LOC Falls from a standing position, no LOC, patient is amnestic to the event Falls with isolated injury and deformity noted to limb Falls with inability to move post fall Cool extremities after fall or injury Chief Complaints: Extremity Swelling, Falls PMH: COPD/Asthma, Hypertension, Diabetes Mellitus Type 2, Depression, Migraine PMH Reviewed at 03/07/2025:41 Allergies Reviewed at 03/07/2025:41 Comments: 75 y.o male complains of Extremity Swelling, Falls calling about LLE pain: Fell out of bed 4 days ago onto LLE Painful but now getting worse Leg is red and swollen - from knee down Unable to feel his toes Denies cyanosis of foot/toes LLE is twice as big as his RLE Able to walk on it - limping Discussed inability to provide imaging to LLE, pt understanding, requesting instED visit instead of ED for evaluation I provided information on the mobile health provider response time and advised the patient and/or caregiver to monitor reported signs and symptoms. I discussed the warning signs of when to seek emergency care. ..................... ..................... ..................... ..................... ..................... ..................... ............... Bin Piler Note From Hector Álvarez: This 75-year-old male with a history including [...] associated with this. In this case, the [facility] and I agree that the patient would benefit from emergency department evaluation. Patient requested ambulance transport to [facility] emergency department. 911 was initiated and SBAR was given to Prashanth MCCLOUD. ..................... ..................... ..................... ..................... ..................... ..................... ............... [facility] Consulted: Kristin Maria ..................... ..................... ..................... ..................... ..................... ..................... ............... Disposition: Fulfilled Kristin Maria MD [address] [facility],[address], [place], [address], [employer] - ELINA CERDA 03/07/2025 20:50:55
[2025-05-31 09:23] LABS: MANUAL DIFF FLAG NO
[2025-05-31 09:57] LABS: Hematocrit 37.3 % (42.0-52.0); Hemoglobin 12.5 g/dl (14.0-18.0); Imm Gran Abs Auto 0.02 X10*3/uL (0.00-0.03); Imm Gran Pct Auto 0.2 % (0.0-0.4); Lymphocytes Absolute Auto 1.9 X10*3/uL (1.2-4.9); Mean Corpuscular HGB Conc 33.5 g/dl (31.0-36.0); Mean Corpuscular Hemoglobin 29.6 pg (27.0-33.0); Mean Corpuscular Volume 88.2 fL (80.0-98.0); NRBC Abs Auto 0.000 X10*3/uL (0.0-0.012); NRBC Pct Auto 0.0 /100WBC (0.0-0.2); Platelet Count 277 X10*3/uL (160-400); Red Blood Count 4.23 X10*6/uL (4.60-5.80); White Blood Count 9.0 X10*3/uL (4.8-10.8)
[2025-05-31 10:00] LABS: Appearance Urine Clear; Glucose Urine UA Negative (Negative); PH 8.5 (5.0-9.0); Specific Gravity - Urine 1.010 (1.005-1.025)
[2025-05-31 10:08] LABS: Total Hemoglobin (HGBA1C) 3312.9133 umol/L
[2025-05-31 10:35] LABS: Alanine Aminotransferase 21 U/L (0-40); Albumin Level 4.1 g/dL (3.5-5.0); Alkaline Phosphatase 104 U/L (39-117); Anion Gap 10 (12-20); Aspartate Amino Transferase 22 U/L (5-37); Blood Urea Nitrogen 13 mg/dL (9-16); Calcium 9.1 mg/dL (8.4-10.2); Carbon Dioxide 30 mmol/L (22-29); Chloride 104 mmol/L (96-108); Cholesterol 126 mg/dL (<200); Estimated Glomerular Filt Rate > 60; HDL Cholesterol 54 mg/dL (>40); Iron 48 mcg/dL (45-160); Percent Iron Saturation 15 % (15-50); Potassium 4.6 mmol/L (3.3-5.1); Sodium 139 mmol/L (135-145); Total Iron Binding Capacity 325 mcg/dL (228-428); Total Protein 6.9 g/dL (6.5-8.0); Triglycerides 45 mg/dL (<150); Unsaturated Iron Binding 277 ug/dL
[2025-05-31 10:52] LABS: Ferritin 13 ng/mL (20-250); Free T4 (Free Thyroxine) 0.96 ng/dL (0.71-1.85); Thyroid Stimulating Hormone 2.24 uIU/mL (0.32-4.0)
[2025-05-31 10:56] LABS: Folate 9.1 ng/mL (> or = 4.0); Vitamin B12 171 pg/mL (200-900)
== END 2025-05-31 07:50 | disposition home or self-care (01) ==
LOC: HO.US 07:49
PROVIDERS: PCP Internal Medicine; Visit Provider Internal Medicine
DX: R79.89 Other specified abnormal findings of blood chemistry (principal); R10.9 Unspecified abdominal pain; E11.65 Type 2 diabetes mellitus with hyperglycemia; E78.00 Pure hypercholesterolemia, unspecified; R30.0 Dysuria; Z79.4 Long term (current) use of insulin
CPT/HCPCS: 36415; 76700; 80053; 80061; 81003; 82043; 82570; 82607; 82728; 82746; 83036; 83540; 84439; 84443; 85025

== ENCOUNTER → 2025-05-31 07:50 | Outpatient (BNV) | payer OTHER, SELFPAY | PROVIDERS: PCP Internal Medicine; Visit Provider Radiology Diagnostic Radiology | DX: R79.89 Other specified abnormal findings of blood chemistry (principal) | CPT/HCPCS: 76700 ==

== ENCOUNTER 2025-06-02 11:30 | Outpatient (AMB) | payer OTHER, SELFPAY ==
--- OUTSIDE RECORDS SUMMARY | 2024-07-19 10:20 | XMS_ITS ---
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 Name Role Phone Den Leal MD Primary Care Provider [place] Damon [phone] REASON FOR VISIT Patient presents today for a recall colonoscopy Encounters Encounter Location Date Provider Diagnosis [facility] [address] [place] [phone] 07/19/2024 Bonif[place] Camejo Plan Of Treatment No Information Progress Notes * BILL PRITCHETTDOB: 2 (75 yo M)Acc No.[id number]:07/19/2024 Progress Notes Patient: BILL GILBERT Provider: Dante Camejo MD :1950 A ge:74 Y S ex:Male Date:07/19/2024 Address:[address] [place], [place] [id number] Pcp:Den Leal MD Subjective: * Chief Complaints: [...] Dante Camejo MD Date: 09/19/2023 Generated for uMkund ceballos/Bryan/Mcitting on: 01:55 PM EDT
--- OUTSIDE RECORDS SUMMARY | 2024-12-12 09:20 | XMS_ITS ---
Author Organization [facility] Address [address] [place] [address] Care Team Providers Care Laboratory Tester Name Role Phone Den Leal MD Primary Care Provider Bonifacio Damon [phone] REASON FOR VISIT screening,hx polyps,dysphagia Encounters Encounter Location Date Provider Diagnosis [facility] Out[facility] [address] [place], [place] [phone] 12/12/2024 Bonifacio Camejo Plan Of Treatment No Information Progress Notes * BILL PRITCHETTDOB: [birth year] (75 yo M)Acc No.[id number]:12/12/2024 EGD and COL/MAC Patient: BILL GILBERT Provider: Dante Camejo MD :1950 A ge:74 Y S ex:Male Date:12/12/2024 Address:[address] [place], [place] [phone] Pcp:Den Leal MD Subjective: * Chief Complaints: [...] MD Date: 0 12/12/2024 Generated for Mukund ceballos/Bryan/eTrickysmitting on: 1 01:56 PM EDT
--- OUTSIDE RECORDS SUMMARY | 2025-02-15 06:40 | XMS_ITS ---
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 Name Role Phone Den Leal MD Primary Care Provider Bonifacio Damon [phone] REASON FOR VISIT screening,hx polyps,dysphagia Encounters Encounter Location Date Provider Diagnosis [facility] [address] [place], [place] [phone] 02/15/2025 Bonifacio Camejo Plan Of Treatment No Information Progress Notes * BILL PRITCHETTDOB: 2 (75 yo M)Acc No.[id number]:02/15/2025 EGD and COL/MAC Patient: BILL GILBERT Provider: Dante Camejo MD :1950 A ge:75 Y S ex:Male Date:02/15/2025 Address:[address] [place], [place] [phone] Pcp:Den Leal MD Subjective: * Chief Complaints: [...] MD Date: 0 02/15/2025 Generated for Mukund ceballos/Bryan/eTrickysmitting on: 01:55 PM EDT
[2025-06-02 11:33] VITALS: BP 128/84; PULSE 73; TEMP 36.2; O2SAT 97; BMI 28.8
--- NOTE | 2025-06-02 11:33 | MHC.PC.OV ---
Vital Signs 06/02/25 11:33 Height 5 ft 4 in Weight 168 lb BMI 28.8 BP 128/84 Blood Pressure Location Lt brachial Position Sitting Pulse 73 Pulse Source Pulse Oximeter Temp 97.1 F Temp Source Temporal Artery Scan Pulse Oximetry (%) 97 Oxygen Delivery Method Room Air Intake Visit Reasons: feet swollen Allergies aspirin (ASPIRIN) Allergy (Intermediate, Verified 06/02/25 11:35) RASH WITH HIGH DOSES butalbital (BUTALBITAL) Allergy (Intermediate, Verified 06/02/25 11:35) HIVES ibuprofen Allergy (Intermediate, Verified 06/02/25 11:35) Hives Penicillins Allergy (Intermediate, Verified 06/02/25 11:35) HIVES phenytoin (From Dilantin) Allergy (Mild, Verified 06/02/25 11:35) BURNING SENSATION IN BODY fexofenadine (From [place]) Allergy (Unknown, Verified 06/02/25 11:35) Unknown thimerosal (THIMEROSAL) Allergy (Unknown, Verified 06/02/25 11:35) UNKNOWN doxycycline Adverse Reaction (Intermediate, Verified 06/02/25 11:35) penile rash Medication List - Last Reconciled 06/02/25 by Den Petty Po, acetaminophen 650 mg PO Q6H PRN [adult pull ups As directed] albuterol sulfate 90 mcg/actuation (Ventolin HFA) 2 puffs PO Q4-6H PRN amitriptyline 50 mg (2 x 25 mg) PO BEDTIME ascorbate calcium (vitamin C) 500 mg PO DAILY ascorbic acid (vitamin C) 500 mg PO .QD aspirin 81 mg PO DAILY atorvastatin 40 mg PO BEDTIME [bed rails As directed] blood-glucose sensor ([employer] G7 Sensor device) As directed blood-glucose,flying ii instructor,cont (Dexcom G7 Shock Absorber Installer) As directed cholecalciferol (vitamin D3) 2,000 units PO DAILY cyanocobalamin (vitamin B-12) 1,000 mcg PO DAILY cyanocobalamin (vitamin B-12) 1,000 mcg PO DAILY empagliflozin (Jardiance) 10 mg PO DAILY ferrous sulfate (Feosol) 325 mg PO DAILY ferrous sulfate (Feosol) 325 mg PO DAILY fluticasone furoate-vilanterol 200-25 mcg/dose (Breo Ellipta) 1 inh inhalation DAILY FreeStyle Precision Mike Strips (blood sugar diagnostic) Once daily as needed to check blood glucose when CGM reads high or low NS gabapentin 300 mg PO BID [Grab bars for bathroom As directed] [hand held shower As directed] hydrocortisone acetate (Anusol-HC) 25 mg MA BID insulin glargine (Lantus Solostar U-100 Insulin) 10 units (0.1 mL) subcut DAILY lancets (OneTouch UltraSoft 2 Lancet) DAILY levetiracetam 500 mg PO Q12H lisinopril 2.5 mg PO DAILY 90 days meclizine 25 mg PO TID PRN metformin 1,000 mg PO BID 90 days montelukast (Singulair) 10 mg PO BEDTIME 90 days nebulizer accessories As directed nebulizers (Compact Compressor Nebulizer) As directed omeprazole 20 mg PO DAILY 90 days pen needle, diabetic As directed Inject LAntus 10 u QD [quad cane As directed] semaglutide (Ozempic) 2 mg (0.75 mL) subcut QWEEK sertraline 100 mg PO DAILY [shower chair As directed] [shower bench with back As directed] tramadol 50 mg PO BID PRN 7 days Tobacco use date assessed: 06/02/25 Fall risk assessment: 2 + Falls in past year Last assessed Fall Risk: 06/02/25 Dental Screening Dental Screen Date: 06/02/25 Did you have a dental visit in the last 12 months?: No Did you have a dental problem in the last 6 months where you did not have access to dental care?: No Was dental information given to patient?: Patient has dentist [facility] Medical History Abdominal pain Snoring Carpal tunnel syndrome Hypersomnia Nocturia Bladder wall thickening Incontinence Lower urinary tract symptoms Other peripheral vertigo, unspecified ear Insulin long-term use Testicular pain Stroke BERNARD positive BPH (benign prostatic hyperplasia) Brain tumor Hypercholesterolemia Vitamin D deficiency Obesity (BMI 30-39.9) Vitamin B12 deficiency GERD (gastroesophageal reflux disease) Grand mal seizure disorder Erectile dysfunction Osteoarthritis COPD (chronic obstructive pulmonary disease) RLS (restless legs syndrome) Pulmonary nodule Essential hypertension Diabetes mellitus with hyperglycemia Migraine Surgical History Hx of knee surgery History of esophagogastroduodenoscopy (EGD) History of prostate surgery Hx of colonoscopy History of elbow surgery Hx of foot surgery Hx of brain surgery History of partial gastrectomy History of right inguinal hernia repair Family History Father Diabetes Throat cancer Heart disease Mother Ovarian cancer Sister Dementia Brother Dementia Social History Household Members: Spouse Housing: House Are you a primary children's zoo caretaker to a significant other at home: No Do you presently have visiting nurse or other home services: No Alcohol intake: former Patient Tobacco Use Status: Never used Tobacco Tobacco use type: Cigarette e-Cigarette/Vaping Use: Never Used Second Hand Smoke Exposure: No Advance Directives Date on File: 06/13/21 service: No Current occupational status: retired Current occupation: rt handed Cognitive needs: No Hearing needs: No Vision needs: Yes Questionnaire PHQ-9 Over the last 2 weeks, how often have you been bothered by any of the following problems? 1. Little interest or pleasure in doing things: not at all 2. Feeling down, depressed, or hopeless: not at all 3. Trouble falling or staying asleep, or sleeping too much: more than half the days 4. Feeling tired or having little energy: more than half the days 5. Poor appetite or overeating: more than half the days 6. Feeling bad about yourself - or that you are a failure or have let yourself or your family down: not at all 7. Trouble concentrating on things, such as reading the newspaper or watching television: not at all 8. Moving or speaking so slowly that other people could have noticed. Or the opposite - being so fidgety or restless that you have been moving around a lot more than usual: not at all 9. Thoughts that you would be better off or of hurting yourself in some way: not at all Total score: 6 Depression Screening Interpretation: Positive Depression Screening Done: Yes Source: Developed by Drs. Bonifacio Disla, Cristine Card, Orville Morley and colleagues, with an educational jackson from [employer]. Thrive Questionnaire Date Thrive assessed: 12/19/24 I am a: Patient What is your living situation today?: I have a steady place to live Within the past 12 months, did the food you bought not last and you didn't have the money to get more?: Sometimes True Within the past 12 months, did you worry whether your food would run out before you got money to buy more?: Often true Do you have trouble paying for medicines?: No Do you have trouble getting transportation to medical appointments?: No Do you have trouble paying your heating and electricity bill?: Yes Do you have trouble taking care of your child, family member or friend?: No Do you have trouble with day-to-day activities such as bathing, preparing meals, shopping, managing finances, etc.?: No Are you currently unemployed and looking for a job?: No Are you interested in more education?: No Currently or been in a relationship where the following occur: No concerns reported THRIVE Score: 3 AUDIT C Alcohol Use Questionnaire (AUDIT-C) 1. How often do you have a drink containing alcohol?: Never 3. How often do you have six or more drinks on one occasion?: Never Total Score: 0 LANA-7 AMB Questionnaire LANA-7 Date LANA - 7 assessed: 08/23/24 Feeling nervous, anxious, or on edge: 0 = Not at all Not being able to stop or control worryin = Not at all Worrying too much about different things: 0 = Not at all Trouble relaxin = Not at all Being so restless that it is hard to sit still: 0 = Not at all Becoming easily annoyed or irritable: 0 = Not at all Feeling afraid as if something awful might happen: 0 = Not at all Total LANA-7 score (0-4 normal; 5-9 mild; 10-14 moderate; 15-21 severe): 0 Source: Developed by Drs. Bonifacio Disla, Cristine Card, Orville Morley and colleagues, with an educational jackson from [employer]. Physical exam (Primary Care) Vital Signs: Last Vital Signs Temp 97.1 F 06/02/25 11:33 Pulse 73 06/02/25 11:33 BP 128/84 06/02/25 11:33 Pulse Ox 97 06/02/25 11:33 Oxygen Delivery Method Room Air 06/02/25 11:33 BMI result Body Mass Index 28.8 Tobacco/Smoking Status: Tobacco use Status Tobacco use date assessed 06/02/25 06/02/25 11:37 Patient Tobacco Use Status Never used Tobacco 06/02/25 11:37 Tobacco use type Cigarette 06/02/25 11:37 e-Cigarette/Vaping Use Never Used 06/02/25 11:37 PHQ-9: PHQ-9 Score PHQ-9: Total score 6 06/02/25 11:53 Depression Screening Interpretation: Positive Thrive Assessment: Date of Thrive Assessment Date Thrive assessed 12/19/24 06/02/25 11:37 Currently or been in a relationship where the following occur: No concerns reported Const General: alert; No acute distress Eyes Conjunctivae: conjunctivae normal Resp Auscultation: clear to auscultation bilaterally Cardio Rate: regular rate Rhythm: regular rhythm GI Inspection: Yes normal to inspection Extrem General: Yes normal to inspection and No edema Coding Level of Care Code Est Pt Level 4 (82354) Complex EM visit Add On G2211 Diagnoses Type 2 diabetes mellitus with hyperglycemia, with long-term current use of insulin E11.65; Z79.4 Diabetes mellitus nursing home insulin use: with nursing home use Diabetes mellitus type: type 2 Essential hypertension I10 Hypercholesterolemia E78.00 Overweight (BMI 25.0-29.9) E66.3 Vitamin B12 deficiency E53.8 GERD (gastroesophageal reflux disease) K21.9 BPH (benign prostatic hyperplasia) N40.0 Right knee pain M25.561 Acute CVA (cerebrovascular accident) I63.9 Peripheral vascular disease I73.9 Assessment & Plan Assessment & Plan (1) Diabetes mellitus with hyperglycemia: Comment: [facility] Ophthamology Code(s): E11.65 - Type 2 diabetes mellitus with hyperglycemia Category: Medical Qualifiers: Diabetes mellitus manager long term care insulin use: with manager long term care use Diabetes mellitus type: type 2 Qualified Code(s): E11.65 - Type 2 diabetes mellitus with hyperglycemia; Z79.4 - retirement (current) use of insulin Plan: Decrease the amount of carbohydrate intake, pasta, bread, rice and potatoes are all sugar and that is aside from all the sweet stuff, remember that fruits are good but they are Sweet also. Hemoglobin A1c goal of less than 7.0. Patient on Jardiance 10 mg once a day Lantus 10 units once a day Ozempic 2 mg once a week concern that the blood sugars elevated (2) Essential hypertension: Code(s): I10 - Essential (primary) hypertension Category: Medical Plan: Continue with blood pressure medication. Decrease salt intake and exercise on lisinopril 2.5 mg once a day (3) Hypercholesterolemia: Code(s): E78.00 - Pure hypercholesterolemia, unspecified Category: Medical Plan: Avoid fried foods, chicken skin, eggs, butter margarine, pastries and meat. Be it pork or beef they have a lot of cholesterol on atorvastatin 40 mg once a day (4) Overweight (BMI 25.0-29.9): Code(s): E66.3 - Overweight Category: Medical Plan: Diet and exercise (5) Vitamin B12 deficiency: Code(s): E53.8 - Deficiency of other specified B group vitamins Category: Medical Plan: Vitamin B12 advised 1000 mcg once a day (6) GERD (gastroesophageal reflux disease): Code(s): K21.9 - Gastro-esophageal reflux disease without esophagitis Category: Medical Plan: Avoid the foods that causes that usually spicy foods, tomato products, juices, coffee, soda and foods that your sensitive to. After eating do not lie down, allow 3-4 hours before in lie down. And keep the head of bed above 30 degrees to avoid the acid from going up. (7) BPH (benign prostatic hyperplasia): Comment: 07/2023 28 cc prostate Code(s): N40.0 - Benign prostatic hyperplasia without lower urinary tract symptoms Category: Medical Plan: Stable (8) Right knee pain: Comment: 01/2025 Moderate to severe osteoarthritis of the patellofemoral compartment and mild osteophytosis of the medial compartment. 2. PCL tear. 3. Horizontal tear of the body and posterior horn of the medial meniscus. Code(s): M25.561 - Pain in right knee Category: Medical Plan: Patient follows up with orthopedics and planned injections (9) Acute CVA (cerebrovascular accident): Code(s): I63.9 - Cerebral infarction, unspecified Category: Medical Plan: Control the cholesterol, weight, blood pressure, diabetes (10) Peripheral vascular disease: Code(s): I73.9 - Peripheral vascular disease, unspecified Category: Medical Plan History of Present Illness The patient is a 75-year-old male presenting for a follow-up visit. The patient has a history of diabetes mellitus, managed with Jardiance, Lantus, and Ozempic. His recent hemoglobin A1c was elevated at 8.7%, indicating poor glycemic control, despite previous levels being at 6.5%. The patient denies missing medications and is advised to monitor dietary intake closely. The patient has hypertension, managed with lisinopril 2.5 mg daily. His blood pressure management plan includes lifestyle modifications such as diet and exercise. The patient has a history of hypercholesterolemia, managed with atorvastatin 40 mg daily. His LDL cholesterol is well-controlled at 63 mg/dL. The patient reports left knee pain and follows up with orthopedics, where injections have been planned. He experiences leg swelling, which may be exacerbated by gabapentin, and is advised to reduce the dosage. The patient has a history of anemia, with recent blood work showing a hemoglobin level of 12.5 g/dL. He also has a vitamin B12 deficiency, for which supplementation has been prescribed. The patient has a history of depression and a past cerebrovascular accident, both of which are part of his chronic medical history. Health Maintenance - Colon cancer screening: Last test in February 2025 - Eye examination: Completed, no retinopathy noted - Orthopedic follow-up: For left knee pain, injections planned - Flu vaccination: Administered - COVID-19 vaccination: Recommended - Tetanus vaccination: Due, last received in June 2015 Social History - Exercise: Patient walks regularly and is advised to prop legs up when sitting. Review of Systems - Endocrine: Reports elevated blood sugar levels, denies missing medications. - Musculoskeletal: Reports left knee pain and leg swelling. Physical Exam Results - Labs: Hemoglobin 12.5 g/dL, A1c 8.7%, LDL 63 mg/dL, vitamin B12 deficiency noted. - Imaging: Abdominal ultrasound negative. Plan Patient was informed and verbally consented to the use of an ambient scribe for clinic note documentation during this visit. 1. Diabetes Mellitus The patient's diabetes mellitus is managed with Jardiance, Lantus, and Ozempic. Despite this, his recent A1c was elevated at 8.7%, indicating poor glycemic control. The plan includes monitoring dietary intake and re-evaluating blood sugar levels at the next visit. 2. Hypertension Hypertension is managed with lisinopril 2.5 mg daily. Lifestyle modifications such as diet and exercise are recommended to aid in blood pressure control. 3. Hypercholesterolemia The patient's hypercholesterolemia is managed with atorvastatin 40 mg daily. His LDL cholesterol is well-controlled at 63 mg/dL. 4. Left Knee Pain The patient follows up with orthopedics for left knee pain, where injections have been planned. 5. Leg Swelling Leg swelling may be exacerbated by gabapentin, and the dosage is being reduced. The patient is advised to wear support stockings and elevate legs when sitting. 6. Anemia The patient has chronic anemia with a hemoglobin level of 12.5 g/dL. Vitamin B12 supplementation has been prescribed to address the deficiency. 7. Preventative Care Preventative care measures include colon cancer screening, eye examination, and vaccinations for flu, COVID-19, and tetanus. Discussion Notes During the visit, we discussed the management of the patient's diabetes, emphasizing the importance of dietary monitoring and medication adherence to improve glycemic control. We also reviewed the patient's hypertension and hypercholesterolemia management plans, including the continuation of current medications and lifestyle modifications. For the patient's leg swelling, we discussed reducing the gabapentin dosage and using support stockings. Preventative care measures, including vaccinations and screenings, were also addressed. Patient Instructions - Monitor your dietary intake closely to help manage blood sugar levels. - Continue taking your medications as prescribed, including Jardiance, Lantus, and Ozempic for diabetes. - Follow the blood pressure management plan, including taking lisinopril and maintaining a healthy lifestyle. - Use support stockings and elevate your legs when sitting to help with leg swelling. - Take vitamin B12 supplements as prescribed to address deficiency. - Ensure you are up to date with vaccinations, including flu and COVID-19. Medications: New compress.stocking,knee,reg,med As directed 20-30 mm HG 12 ea 0RF I73.9 - Peripheral vascular disease, unspecified Changed From gabapentin 300 mg PO BID 180 caps 1RF E11.65 - Type 2 diabetes mellitus with hyperglycemia, Z79.4 - retirement (current) use of insulin To gabapentin 100 mg PO BID 60 caps 1RF E11.65 - Type 2 diabetes mellitus with hyperglycemia, Z79.4 - manager long term care (current) use of insulin
--- OUTSIDE RECORDS SUMMARY | 2025-06-02 13:56 | XMS_ITS | Data Portability ---
Author Organization [facility], [facility] Address [address] [place] [address] Care Team Providers Care Dry Sand Molder Name Role Phone HIM CCA OTHER Assessment Encounter Date Assessment Date Assessment LastModified by Organization Details LastModified Time 12/22/2023 12/22/2023 I have reviewed and agree with the assessment and plan as documented by the event decorator. I provided real time medical direction for this encounter and was immediately available to provide additional phone based assistance as needed. History as noted by event decorator. Pt with history of COPD, reports 3 [...] Assessment and Plan as documented by the Ref[employer]. Patient given the opportunity to ask questions. Our service contacted for an assessment of: s/p fall with trauma LLE As per above, patient fell last week with trauma to LLE and now calls this service with pain, inability to ambulate on it. Per event decorator on the scene, ASS, AF. Please see uploaded pictures Please read the event decorator note for their exam findings. Impression: Fall with injury. R/o compartment syndrome Plan: Expect call to [facility] Allergies: Reviewed [email or web address] Not available 03/07/2025 20:25:46 Plan of Treatment Reminders Order Date Submit Date Provider Last Modified By Organization Details Last Modified Time Details Appointments None recorded. Lab rapid SARS CoV 2 Ag, QL IA, respiratory specimen 2023 024 [facility] [address] [place] [address], [address] [place] [address] 4 12:14:18 rapid flu (A+B) 2023 024 [facility] Main - [facility], [address] [place] [address], [address] [place] [address] 4 12:14:19 rapid strep group A, throat 2023 024 [facility] Main - [facility], [address] [place] [address], [address] [place] [address] 4 12:14:16 Referral None recorded. Procedures None [...] Strep negati ve Not Available Main - [facility] [address] [place] [address], [phone] 12/22/2023 12:13:37 12/22/19 24 12/22/2023 rapid flu (A+B) Flu negati ve Not Available Main - [facility] ed [address] [place] [address], [phone] 12/22/2023 12:13:32 12/22/19 24 12/22/2023 rapid SARS CoV 2 Ag, QL IA, respi rator y speci men rapid SARS CoV 2 Ag, QL IA, respiratory specimen negati ve Not Available [facility] ed [address] [place] [address], [phone] 12/22/2023 12:13:28 Result Notes None recorded. Medical Equipment None Reported. Allergies Allergen ID Allergen Name Allergen Category Reaction Reaction Severity Criticality Documentation Date Start Date Code Code System Note Provider Name and Address Organization Details Recorded Time 7086 Product containin g penicilli n (product) medicatio n Not available Not available Not available 06/07/2024 37341 8001 SNOMED Not Available [facility] - production [...] % 98 % 152.4 cm 84 /min 74999.8 g 14 /min 98.4 [degF] 130/84 mm[Hg] Not Available [facility] - production 4 20:17:11 Date Recorded Oxygen saturation Oxygen saturation in Arterial blood by Pulse oximetry Heart rate Body temperature Respiratory rate Body weight Body height Systolic And Diastolic Provider Name and Address Organization Details Last Updated DateTime 4 98 % 98 % 78 /min 97.7 [degF] 18 /min 01466.5 6 g 162.56 cm 117/72 mm[Hg] Not Available [facility] - production 4 11:46:45 Date Recorded Respiratory rate Heart rate Body temperature Oxygen saturation Oxygen saturation in Arterial blood by Pulse oximetry Systolic And Diastolic Provider Name and Address Organization Details Last Updated DateTime 5 18 /min 95 /min 97.9 [degF] 99 % 99 % 146/77 mm[Hg] Not Available [employer] 5 20:20:18 Social History None recorded. Functional Status None recorded. Mental Status None recorded. Family History Nothing Reported. Medical History No medical history recorded. 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 Evaluation in the field was performed by my event decorator colleague, as noted above, I provided real-time [...] care, considerch fariha in call this week. [id number] Nelson Younger MD Main - [facility] [address] [place] [phone] 12/22/2023 11:46:40 12/22/2023 15:15:53 Viral upper respiratory tract infection 495339210 J06.9 [id number] Kristin Maria MD Main-[facility] ED Medical [address] [address] 03/07/2025 20:20:11 03/08/2025 00:32:15 History of fall 228093221 Z91.81 0715268 Swelling o f lower limb 121431889 M79.89 481437 Health Concerns Section Related Observation LastModified by Organization Detai ls LastModified Time None Recorded Concern Status LastModified by Organization Details LastModified Time None Recorded Advance Directives Directive None Recorded Payers Insurance Date Sequence Insurance Name Policy Number Policy Tracy Covered Member ID Tracy Member ID Guarantor Name 03/07/2025 1 [facility] - DOS ON OR AFTER 2022 - DUAL ELIGIBLE - CORRECTION OPTIONS AND ONE CARE (MEDICARE REPLACEMENT/ADV ANTAGE - HMO) Geovanny Khoury [id number] Geovanny Khoury Notes Date Note Type Note [...] ..................... ..................... ..................... ..................... ..................... ..................... ............... [employer] Note From David De La Torre: Pt [...] ml dark urine, clear, no sediment. At [facility] orders, troubleshooting the howe with flush and repositioning yields another 250ml urine in howe. [facility] orders BMP and UA. Values to [facility]. Pt offered at home treatment with fluid and antibiotics but requests transport to ED. Prashanth MCCLOUD transports to [facility]. ..................... ..................... ..................... ..................... ..................... ..................... ............... Disposition: Fulfilled Albert Mcclelland MD [address] [place] [address],[address], [place], [address], [employer] [facility] [facility] [employer] 09/02/2023 09:35:41 12/22/2023 text/html ROS as noted in the HPI This was a supervised home visit with event decorator Bonnie Bishop. [facility] Nurse Triage Notes (Aaron Cuellar): Patient Reports: Lower extremity swelling; History of asthma, increased use of inhaler; COPD; Sputum increase ; Cough; Shortness of breath with exertion; Pain with inspirationDenies: Increased work of breathing/labored with or without fever Unable to speak in full sentences without distress Cough, fever greater than 2 days Chief Complaints: Weakness/Lethargy, Cough, Chest Pain, HeadachePMH: COPD/Asthma, Hypertension, DiabetesAllergies: PenicillinComments: Mortgage Loan Processing Clerk verified the member's name//address and phone number. [...] for 3 days - Wellness check requested [employer] POC Test Results from Bonnie Bishop - ALS Rapid COVID antigen (1) [12:53] COVID: - Rapid influenza antigen (1) [12:53] Flu: - Rapid strep test (1) [12:53] Strep: - ..................... ..................... ..................... ..................... ..................... ..................... ............... [employer] Note From Bonnie Bishop: Sent to a call for a pt complaining of flu-like symptoms. [employer] arrives on scene, pt is alert and oriented, airway is patent. Pt's primary language is Macanese. Family serves as lang interpreter. Family states pt complains of flu-like symptoms [...] flu test: neg; Rapid strep test: neg; [facility] consulted and orders Toradol 30mg IM. Pt advised to use cough/cold medication, Tylenol 1gm TID, Albuterol inhaler to help with symptoms. Toradol 30mg IM administered without incident. Red flags discussed. Pt/family have no further questions. ..................... ..................... ..................... ..................... ..................... ..................... ............... Disposition: Fulfilled Nelosn Younger MD [address] [facility],[address], [place], [address], [employer] [facility] [facility] [employer] 12/22/2023 13:07:31 03/07/2025 text/html [facility] Nurse Triage [...] ..................... ..................... ..................... ..................... ..................... ..................... ............... [employer] Note From Hector Álvarez: This 75-year-old male [...] associated with this. In this case, the [facility] and I agree that the patient would benefit from emergency department evaluation. Patient requested ambulance transport to [facility] emergency department. 911 was initiated and SBAR was given to Prashanth MCCLOUD. ..................... ..................... ..................... ..................... ..................... ..................... ............... [facility] Consulted: Kristin Maria ..................... ..................... ..................... ..................... ..................... ..................... ............... Disposition: Fulfilled Kristin Maria MD [address] [facility],[address], [place], [address], [facility] 03/07/2025 20:50:55
--- OUTSIDE RECORDS SUMMARY | 2025-06-02 13:56 | XMS_ITS | Clinical Summary ---
Author Organization [address] [facility] Address [address] [place] [address] Phone Care Team Providers Care Application Designer Name Role Phone Den Leal MD Primary Care Provider [phone] Allergies Active Allergy Reactions Criticality Noted Date [...] test strip 5 Active FreeStyle Scott 3 [place] misc See administration instructions. 4 Active FreeStyle [...] Problem Noted Date Diagnosed Date Diabetes mellitus ([facility] V24, [facility] V28) Epilepsy ([facility] V24, [facility] V28) 12/28/2024 Obstructive sleep apnea syndrome 12/28/2024 Cubital tunnel syndrome of both upper extremitie s 12/28/2024 Carpal tunnel syndrome on left 12/28/2024 Cubital tunnel syndrome on left 12/28/2024 Encounters Date Type Department Care Team Description 03/13/2025 [place] [address] [phone] Kaila Em MD 03/08/2025 [facility] [address] [phone] Kaila Em MD from Last 3 Months Surgical History Surgery Date Site/Laterality Comments CARPAL TUNNEL RELEASE Right ELBOW SURGERY Bilateral ulnar nerve decompression? Medical History Medical History Date Comments Sleep apnea Diabetes mellitus ([facility] V24, [facility] V28) Seizures ([facility] V24, [facility] V28) epilepsy Depression Hx of headache Social [...] AM EST Office Visit Orth[facility] [place] [address] [place] [address] Kaila Em MD [address] [place] [phone] Health Maintenance Due Date Last Done [...] ID:SCO Type:Not on file Address: [place] [address] [address] [address] Care Teams Application Designer Relationship Specialty Start Date End Date Den Leal MD [address] [place] [address] [address] [facility] [place] [address] PCP - General Internal Medicine 09/10/11
--- OUTSIDE RECORDS SUMMARY | 2025-06-02 13:56 | XMS_ITS | Patient Health Record ---
Author Organization [facility] Address [address] [place] [address] Care Team Providers Care Spray Drier Name Role Phone Po Den CARLIN Primary Care Provider Bonifacio Damon [phone] Allergies Allergen (clinical drug ingredient) Drug/Non Drug [...] Blood Reviewed date:02/16/2025 11:51:40 PM Interpretation: Performing Lab:[address] [address] Notes/Report: Glucose, Whole Blood 86 60-115 mg/dL METER # : [id number] Glucose, Whole Blood Reviewed date:02/16/2025 11:50:30 PM Interpretation: Performing Lab:[facility], [address] [place] [address] Notes/Report: Glucose, Whole Blood 73 60-115 mg/dL METER # : [id number] Reason For Referral No Information Medications Medication [...] Problem Screening for malignant neoplasm of colon (490631412) Encounter for screening for malignant neoplasm of colon (Z12.11) Active confirmed Problem History of adenomatous polyp of colon (257104829) History of adenomatous polyp of colon (Z86.010) Active confirmed Problem History of polyp of colon (situation) (524474172) Personal history of colonic polyps (Z86.010) Active confirmed Problem Generalized abdominal pain (259246979) Generalized abdominal pain (R10.84) Active confirmed Problem Dysphagia (01353109) Dysphagia (R13.10) Active confirmed Problem Elevated liver enzymes level (688762929) Elevated liver function tests (R79.89) Active confirmed Problem Elevated liver enzymes level (075282256) Elevated liver enzymes (R74.8) Active confirmed Problem Constipation (35571628) Constipation, unspecified constipation type (K59.00) Active confirmed Problem Raised antinuclear antibody (752140662) Positive BERNARD (antinuclear antibody) (R76.8) Active confirmed Problem Raised antinuclear antibody (460949638) BERNARD positive (R76.8) Active confirmed Vital Signs Blood pressure diastolic 11 mm Hg 11/04/2024 Height 67 in 11/04/2024 Blood pressure systolic 111 mm Hg 11/04/2024 Weight 181 lbs 11/04/2024 BMI 28.35 kg/m2 11/04/2024 Procedures Procedure Date Ordered Date Performed Result Body Sit e UPPER GI ENDOSCOPY BALLOOON DILATION OF ESOPH 11/04/2024 N/A COLONOSCOPY 11/04/2024 N/A Encounters Encounter Location Date Provider Diagnosis [facility] Outpatient [address] [place] [id number] 02/15/2025 Bonifacio Camejo [facility] [address] [place] [phone] 11/04/2024 Bonifacio Camejo Colon cancer screening Z12.11 ; Dysphagia R13.10 and Personal history of colonic polyps Z86.010 [facility] [address] [place] [phone] 02/20/2025 Bonifacio Camejo [facility] [address] [place] [phone] 11/04/2024 Bonifacio Camejo [facility] [address] [place] [phone] 02/13/2025 Bonifacio Camejo Assessments Encounter Date Diagnosis [...] Insured Coverage Start Date Coverage End Date [facility] [address] Attn Claims RODRIGO [place] [id number] GEOVANNY PRITCHETT Self - patient is the insured MEDICA[employer] OF [employer] [address] [place] [phone] [id number] GEOVANNY PRITCHETT Self - patient is the insured Medical (General) History Medical History History ICD Code Colonoscopy [id number] small tubular a denoma removed He had a neg colonoscopy in 08/[address] Neri History of peptic ulcer disease-s/p B-II in NIDDM Denies NE,CVA,renal disease Neg EGD with Dr. Neri in [...]
== END 2025-06-02 12:41 | disposition home or self-care (01) ==
LOC: HO.HMCH 11:31
PROVIDERS: PCP Internal Medicine; Visit Provider Internal Medicine
DX: E11.65 Type 2 diabetes mellitus with hyperglycemia (principal); Z79.4 Long term (current) use of insulin; I63.9 Cerebral infarction, unspecified; E66.3 Overweight; Z68.28 Body mass index [BMI] 28.0-28.9, adult; I10 Essential (primary) hypertension; E78.00 Pure hypercholesterolemia, unspecified; E53.8 Deficiency of other specified B group vitamins; K21.9 Gastro-esophageal reflux disease without esophagitis; N40.0 Benign prostatic hyperplasia without lower urinary tract symptoms; M25.561 Pain in right knee; I73.9 Peripheral vascular disease, unspecified

== ENCOUNTER → 2025-06-02 11:30 | Outpatient (BNVA) | payer OTHER, SELFPAY | PROVIDERS: PCP Internal Medicine; Visit Provider Internal Medicine | DX: E11.65 Type 2 diabetes mellitus with hyperglycemia (principal); E11.51 Type 2 diabetes mellitus with diabetic peripheral angiopathy without gangrene; I10 Essential (primary) hypertension; E78.00 Pure hypercholesterolemia, unspecified; E53.8 Deficiency of other specified B group vitamins; K21.9 Gastro-esophageal reflux disease without esophagitis; N40.0 Benign prostatic hyperplasia without lower urinary tract symptoms; M25.561 Pain in right knee; E66.3 Overweight; Z86.73 Personal history of transient ischemic attack (TIA), and cerebral infarction without residual deficits; Z79.4 Long term (current) use of insulin; Z68.28 Body mass index [BMI] 28.0-28.9, adult | CPT/HCPCS: 96127; 99212 ==